=== PATIENT | female | born 1950 | race Caucasian/White ===

== ENCOUNTER 2017-04-24 18:30 | Emergency (ER) | payer OTHER ==
[~2017-04-24] VITALS: Ht 162.6 cm; Wt 70.7 kg
[~2017-04-24 18:30] MED LIST: ALBU1AER9 INH; CHOL100010 PO; DOCU-94 PO; DOXY100C76 PO; FLVHFA110 INH; NAPR220T40 PO
[2017-04-24 18:35] VITALS: TEMP 36.6; Ht 162.6 cm; Wt 70.7 kg
[2017-04-24] MEDS ORDERED: HYDROCODONE/HOMATROPINE SYRUP 5MG/1.5MG 5ML UDP PO STA (18:43)
[2017-04-24] MEDS ORDERED: ALBUT/IPRATROP 3MG/0.5MG NEB 3 ML VIAL INH ONE (18:45)
--- NOTE | 2017-04-24 18:48 | EMERGENCY ROOM VISIT NOTE ---
History Report prepared by Cindy: Gita Roberts Under the Supervision of: Dr. Akin Greene M.D. First contact with patient: 18:38 Chief Complaint: RESPIRATORY PROBLEMS Stated Complaint: TROUBLE BREATHING LEFT LUNG History of Present Illness The patient is a 66 year old female who presents to the Emergency Room with complaints of constant shortness of breath beginning 1 week ago. The patient states that she has a history of COPD and has been using her nebulizer without relief of her symptoms. She reports that she is not on oxygen at home. She notes that her pain is mostly on the left side and she explains that 1 week ago she was hit with a car door on the left side when she was putting her grandson in a car seat. The patient states that her shortness of breath is worse with exertion. She reports that she walks a few miles a day every day but was not able to walk today. She complains of a productive cough. Source of History: patient Onset: 1 week ago Position: other (respiratory) Quality: other (SOB) Timing: constant Modifying Factors (Worsening): exertion Associated Symptoms: + cough Note: Pt complains of left sided rib pain. Review of Systems See HPI for pertinent positives & negatives. A total of 10 systems reviewed and were otherwise negative. Past Medical & Surgical Medical Problems: (1) COPD (chronic obstructive pulmonary disease) (2) Depressive Disorder Nec (3) Dysthymic Disorder (4) Esophageal Reflux (5) Herpes Zoster Nos (6) Pneumonia, Organism Nos (7) posterior colporrhapy Family History FH: ischemic heart disease Kidney disease Social History Smoking Status: Current Every Day Smoker Alcohol Use: none Marital Status: Housing Status: lives with significant other Occupation Status: retired Current/Historical Medications Scheduled Azithromycin (Zithromax), 250 MG PO DAILY Cholecalciferol (Vitamin D 1000 Unit), 1,000 INTER.UNIT PO DAILY Docusate Sodium (Colace), 2 CAP PO DAILY Omeprazole (Prilosec), 20 MG PO DAILY Prednisone (Prednisone Tab), 0 PO DAILY Scheduled PRN Albuterol Hfa (Ventolin Hfa), 2 PUFFS INH Q6H PRN for SOB/Wheezing Fluticasone Propionate (Flovent Hfa), 2 PUFF INH DAILY PRN for SOB/Wheezing Hydrocodone W/ Homatropine (Hycodan 5/1.5MG 5 Ml), 5 ML PO HS PRN for Cough Naproxen Sodium (Aleve), 440 TAB PO for Pain Allergies Coded Allergies: Iodinated Contrast Media (Verified Allergy, Intermediate, HIVES, 12/04/14) Uncoded Allergies: ANESTHETIC AGENT (Allergy, Unknown, BLISTER ACROSS CHEST AND 2 FLUID SACS IN THROAT AND SEEN MD, 11/07/14) SURGERY WAS IN SURG [facility]ENTER 04/26 Physical Exam Vital Signs Date Time Temp Pulse Resp B/P (MAP) Pulse Ox O2 Delivery O2 Flow Rate FiO2 04/24/17 20:16 79 20 129/62 96 04/24/17 19:39 76 04/24/17 19:14 99 04/24/17 19:10 71 18 96 Room Air 04/24/17 18:35 36.6 74 20 149/81 95 Room Air Physical Exam GENERAL: Patient is a healthy-appearing well-nourished female HEAD: Normocephalic atraumatic EYES: Ocular movements intact pupils equal and react to light OROPHARYNX mucous membranes are moist no exudates present no erythema or edema present NECK: Supple no nuchal rigidity CHEST: Good equal expansion, tender to left chest wall area. LUNGS: Clear and equal to auscultation CARDIAC: Normal S1 and S2 ABDOMEN: Soft nontender no guarding BACK: No CVA tenderness EXTREMITIES: No pain upon palpation normal muscle strength in all groups no clubbing cyanosis or edema NEURO: Patient is following commands and answering questions appropriately. Alert and oriented x3 Cranial Nerves 2-12 grossly intact Medical Decision & Procedures ER Provider Diagnostic Interpretation: X-ray results as stated below per interpretation by me and the radiologist: CHEST ONE VIEW PORTABLE FINDINGS: The bones soft tissues and hemidiaphragms are normal. The cardiomediastinal silhouette is normal. The lungs are clear. The pulmonary vasculature is normal. IMPRESSION: Negative chest. The above report was generated using voice recognition software. It may contain grammatical, syntax or spelling errors. Electronically signed by: Shay Carter M.D. 04/24/2017 7:15 PM Dictated Date/Time: 04/24/2017 7:11 PM Laboratory Results 04/24/17 18:54 Red Blood Count 4.49, Mean Corpuscular Volume 93.8, Mean Corpuscular Hemoglobin 31.4, Mean Corpuscular Hemoglobin Concent 33.5, Mean Platelet Volume 9.0, Neutrophils (%) (Auto) 55.9, Lymphocytes (%) (Auto) 33.6, Monocytes (%) (Auto) 7.7, Eosinophils (%) (Auto) 2.1, Basophils (%) (Auto) 0.4, Neutrophils # (Auto) 5.33, Lymphocytes # (Auto) 3.21, Monocytes # (Auto) 0.74, Eosinophils # (Auto) 0.20, Basophils # (Auto) 0.04 04/24/17 18:54 Test 04/24/17 18:54 White Blood Count 9.55 K/uL (4.8-10.8) Red Blood Count 4.49 M/uL (4.2-5.4) Hemoglobin 14.1 g/dL (12.0-16.0) Hematocrit 42.1 % (37-47) Mean Corpuscular Volume 93.8 fL (80-100) Mean Corpuscular Hemoglobin 31.4 pg (25-34) Mean Corpuscular Hemoglobin Concent 33.5 g/dl (32-36) Platelet Count 269 K/uL (130-400) Mean Platelet Volume 9.0 fL (7.4-10.4) Neutrophils (%) (Auto) 55.9 % Lymphocytes (%) (Auto) 33.6 % Monocytes (%) (Auto) 7.7 % Eosinophils (%) (Auto) 2.1 % Basophils (%) (Auto) 0.4 % Neutrophils # (Auto) 5.33 K/uL (1.4-6.5) Lymphocytes # (Auto) 3.21 K/uL (1.2-3.4) Monocytes # (Auto) 0.74 K/uL (0.11-0.59) Eosinophils # (Auto) 0.20 K/uL (0-0.5) Basophils # (Auto) 0.04 K/uL (0-0.2) RDW Standard Deviation 43.3 fL (36.4-46.3) RDW Coefficient of Variation 12.6 % (11.5-14.5) Immature Granulocyte % (Auto) 0.3 % Immature Granulocyte # (Auto) 0.03 K/uL (0.00-0.02) Anion Gap 6.0 mmol/L (3-11) Est Creatinine Clear Calc Drug Dose 77.5 ml/min Estimated GFR () 104.7 Estimated GFR (Non- 90.3 BUN/Creatinine Ratio 19.4 (10-20) Calcium Level 9.1 mg/dl (8.5-10.1) Total Bilirubin 0.3 mg/dl (0.2-1) Aspartate Amino Transf (AST/SGOT) 13 U/L (15-37) Alanine Aminotransferase (ALT/SGPT) 18 U/L (12-78) Alkaline Phosphatase 56 U/L (45-117) Total Creatine Kinase 103 U/L (26-192) Creatine Kinase MB 1.4 ng/ml (0.5-3.6) Creatine Kinase MB Ratio 1.4 (0-3.0) Troponin I < 0.015 ng/ml (0-0.045) Total Protein 6.8 gm/dl (6.4-8.2) Albumin 3.7 gm/dl (3.4-5.0) Globulin 3.1 gm/dl (2.5-4.0) Albumin/Globulin Ratio 1.2 (0.9-2) Labs reviewed by ED physician. Medications Administered Medications (Trade) Dose Ordered Sig/Shelia Route Start Time Stop Time Status Last Admin Dose Admin Hydrocodone Bit/ Homatropine Methylb (Hycodan Syrup) 5 ml NOW STAT PO 04/24/17 18:43 04/24/17 18:45 DC 04/24/17 19:01 5 ML Albuterol/ Ipratropium (Duoneb) 12 ml ONE ONCE INH 04/24/17 18:45 04/24/17 18:46 DC 04/24/17 19:07 12 ML Methylprednisolone Sodium Succinate (Solu-Medrol IV) 60 mg NOW STAT IV 04/24/17 19:03 04/24/17 19:04 DC 04/24/17 19:22 60 MG Sodium Chloride 500 ml @ 999 mls/hr Q31M STAT IV 04/24/17 19:03 04/24/17 19:33 DC 04/24/17 19:23 999 MLS/HR Azithromycin (Zithromax Tab) 500 mg NOW STAT PO 04/24/17 19:48 04/24/17 19:49 DC 04/24/17 20:10 500 MG Hydrocodone Bit/ Homatropine Methylb (Hycodan Elix Homepack 5/1.5MG/ 5ML) 1 homepack UD STAT PO 04/24/17 19:49 04/24/17 19:50 DC 04/24/17 20:10 1 HOMEPACK ECG Indication: SOB/dyspnea Rate (beats per minute): 61 Rhythm: normal sinus Findings: no acute ischemic change, no ectopy ED Course 1837: Past medical records reviewed. The patient was evaluated in room C5. A complete history and physical examination was performed. 1842: Hycodan Syrup 5ml PO, Duoneb 12ml INH. 1902: Sodium Chloride 500 ml @ 999 mls/hr IV, Solu-Medrol IV 60mg IV. 1947: Zithromax Tab 500mg PO, Hydrocodone Bit/Homatropine Methylb 1 homepack PO. 1952: Upon reexamination the patient is doing well. I discussed results and treatment plan with the patient. She verbalizes agreement and understanding. The patient is ready for discharge. Medical Decision Differential diagnosis: Etiologies such as infections, reactive airway disease, pneumonia, pneumothorax , COPD, CHF, cardiac ischemia, pulmonary embolism, musculoskeletal, gastrointestinal, as well as others were entertained. This is a 66-year-old female who presents emergency department complaining of left-sided rib pain that has been ongoing for the past 4 weeks ever since she hit herself with a car door. The rib pain is palpable on examination. She does also has a normal EKG as well as CK-MB and troponin. She is not hypoxic and is not tachycardic. Based on these findings the patient was given an hour- long breathing treatment and will be started on Solu-Medrol for her COPD. She' ll be placed on a prednisone taper and I recommended Tylenol as well as Hycodan for pain. Patient will return if her symptoms worsen. She will also follow-up with her primary care physician. Medication Reconcilliation Current Medication List: was personally reviewed by me Blood Pressure Screening Patient's blood pressure: Elevated blood pressure Blood pressure disposition: Elevated BP felt to be situational Impression Primary Impression: COPD exacerbation Scribe Attestation The scribe's documentation has been prepared under my direction and personally reviewed by me in its entirety. I confirm that the note above accurately reflects all work, treatment, procedures, and medical decision making performed by me. Departure Information Dispostion Home / Self-Care Prescriptions Hydrocodone W/ Homatropine (HYCODAN 5/1.5MG 5 ML) 1 Syp Syp 5 ML PO HS Y for Cough, #120 ML Prov: Akin Greene MD 04/24/17 Azithromycin (ZITHROMAX) 250 Mg Tab 250 MG PO DAILY, #4 TAB Prov: Akin Greene MD 04/24/17 Prednisone (Prednisone Tab) 20 Mg Tab 0 PO DAILY, #7 TAB 2 TABS DAILY FOR 2 DAYS, THEN 1 TAB DAILY FOR 2 DAYS, THEN 1/2 TAB DAILY FOR 2 DAYS. Prov: Akin Greene MD 04/24/17 Referrals Molly King C.R.N.P (PCP) Forms HOME CARE DOCUMENTATION FORM, IMPORTANT VISIT INFORMATION, WORK / SCHOOL INSTRUCTIONS Patient Instructions COPD - [facility], [facility] Additional Instructions Use inhaler twice every 6 hours Use 1000 mg Tylenol every 6 hours Take Hycodan for breakthrough pain You were found to have an elevated blood pressure today (>120 sytolic or >90 diastolic). Per medicare guidelines, you need to follow up with this blood pressure screening with your Primary Care Physician (PCP). For a new PCP call [phone]. You received narcotic or benzodiazepene medication while in the emergency room today. This is an addictive medication that may cause drowziness as well as constipation. Do not drive, operate heavy machinery, or drink alcohol under the influence of this medication. You have been examined and treated today on an emergency basis only. This is not a substitute for, or an effort to provide, complete comprehensive medical care. It is impossible to recognize and treat all injuries or illnesses in a single emergency department visit. It is therefore important that you follow up closely with Dr King. Call as soon as possible for an appointment. Thank you for your time and consideration. I look forward to speaking with you again soon. Please don't hesitate to call us if you have any questions.
[2017-04-24] MEDS ORDERED: METHYLPREDNISOLONE 125 MG VIAL IV STA (19:03)
[2017-04-24] MEDS ORDERED: SODIUM CHLORIDE 0.9% 500ML 500 ML IV STA (19:03)
[2017-04-24 19:06] LABS: BASO % 0.4 %; BASO ABS # 0.04 K/uL (0-0.2); COMPLETE YES; EOS % 2.1 %; HEMATOCRIT 42.1 % (37-47); IG% 0.3 %; LYMPH % 33.6 %; LYMPH ABS # 3.21 K/uL (1.2-3.4); MEAN CELL VOLUME 93.8 fL (80-100); MEAN CORPUSCULAR HEMOGLOBIN 31.4 pg (25-34); MEAN CORPUSCULAR HGB CONC 33.5 g/dl (32-36); MONO % 7.7 %; NEUT % 55.9 %; PLATELET COUNT 269 K/uL (130-400); RED BLOOD COUNT 4.49 M/uL (4.2-5.4); WHITE BLOOD COUNT 9.55 K/uL (4.8-10.8)
[2017-04-24 19:10] VITALS: PULSE 71; O2SAT 96
[2017-04-24 19:14] VITALS: O2SAT 99
--- NOTE | 2017-04-24 19:16 | DIAGNOSTIC IMAGING REPORT ---
CHEST ONE VIEW PORTABLE CLINICAL HISTORY: Pt c/o cough dyspnea COMPARISON STUDY: 08/04/2016 FINDINGS: The bones soft tissues and hemidiaphragms are normal. The cardiomediastinal silhouette is normal. The lungs are clear. The pulmonary vasculature is normal. IMPRESSION: Negative chest. The above report was generated using voice recognition software. It may contain grammatical, syntax or spelling errors. Electronically signed by: Shay Carter M.D. 04/24/2017 7:15 PM Dictated Date/Time: 04/24/2017 7:11 PM
[2017-04-24 19:25] LABS: ALT/SGPT 18 U/L (12-78); BLOOD UREA NITROGEN 13 mg/dl (7-18); BUN/CREATININE RATIO 19.4 (10-20); CALCIUM 9.1 mg/dl (8.5-10.1); CARBON DIOXIDE 27 mmol/L (21-32); CHLORIDE 107 mmol/L (98-107); CREATININE 0.67 mg/dl (0.60-1.20); GLUCOSE 87 mg/dl (70-99); SODIUM 140 mmol/L (136-145)
[2017-04-24 19:31] LABS: ALB/GLOB RATIO 1.2 (0.9-2); ALKALINE PHOSPHATASE 56 U/L (45-117); AST/SGOT 13 U/L (15-37); CKMB/CK RATIO 1.4 (0-3.0)
[2017-04-24] MEDS ORDERED: OMEP20CA9 PO (19:32)
[2017-04-24] MEDS ORDERED: VNTHFA/IN INH (19:37)
[2017-04-24] MEDS ORDERED: CHOL100027 PO (19:37)
[2017-04-24] MEDS ORDERED: AZITHROMYCIN 250 MG TAB PO STA (19:48)
[2017-04-24] MEDS ORDERED: PRED20TA2 PO (19:49)
[2017-04-24] MEDS ORDERED: HYDR5SYP11 PO (19:49)
[2017-04-24] MEDS ORDERED: AZIT250T5 PO (19:49)
[2017-04-24] MEDS ORDERED: HYCODAN 60ML BOTTLE HOMEPACK PO STA (19:49)
[2017-04-24 20:16] VITALS: BP 129/62; PULSE 79; O2SAT 96
== END 2017-04-24 20:17 | disposition home or self-care (01) ==
LOC: C.EDB 18:31 → C.EDC 20:17
DX: J44.1 Chronic obstructive pulmonary disease with (acute) exacerbation (principal); F34.1 Dysthymic disorder; K21.9 Gastro-esophageal reflux disease without esophagitis; R07.81 Pleurodynia; W22.8XXD Striking against or struck by other objects, subsequent encounter; Z87.01 Personal history of pneumonia (recurrent); Z84.1 Family history of disorders of kidney and ureter; Z79.899 Other long term (current) drug therapy

== ENCOUNTER → 2017-05-31 | Day surgery (SDC) | payer OTHER ==
[2017-05-23 08:40] VITALS: Ht 162.6 cm; Wt 70.5 kg
[~2017-05-31] VITALS: Ht 162.6 cm; Wt 70.5 kg
[~2017-05-31] MED LIST changes: +500ML BSS 0.3ML EPI 1:1000PF IRRIG ONE; +ACETAMINOPHEN 325 MG TAB PO PRN; -ALBU1AER9 INH; +AMVISC PLUS 0.8ML SYRINGE INT OCU ONE; +ATROPINE SULFATE 0.1 MG/ML 5ML SYR IV PRN; +AcetaZOLAMIDE 250 MG TAB PO SCH; +BETAXOLOL HCL 0.25% OP SUSP PER DROP CHARGE OPR SCH; +BRIMONIDINE TART 0.2% OP SOLN PER DROP CHARGE ONE; +BSS FLUSH ONE; -CHOL100010 PO; +CHOL100027 PO; -DOXY100C76 PO; +ENDOCOAT 0.85ML SYRINGE INT OCU ONE; +EpHEDrine SULFATE INJ 50 MG/ML AMP IV PRN; +EpINEphrine INJ 1MG/ML AMP 1 MG/ML AMP ONE; +LACTATED RINGER'S 1000ML 500 ML IV SCH; +LIDOCAINE 4% OP SOLN DROP CHARGE ONE; +LIDOCAINE 4% OP SOLN DROP CHARGE OPR SCH; +LIDOCAINE HCL 1% MPF 2 ML VIAL ONE; +MIDAZOLAM HCL 1 MG/ML 2ML VIAL ONE; +MIX: 4ML BSS 1ML EPI 1:1000 PF INSTIL ONE; +MOXIFLOXACIN OPH SOLN PER DROP CHARGE ONE; +OCUCOAT 1 ML SOLN IO ONE; +OMEP20CA9 PO; +POVIDONE-IODINE OP SOLN 30 ML BTL ONE; +PROPARACAINE 0.5% OP SOLN PER DROP CHARGE OPR SCH; +TOBRAMYCIN/DEXAMETHASONE OPH OINT PER APPLN CHARGE ONE; +VNTHFA/IN INH
--- NOTE | 2017-05-31 06:56 | History & Physical Bridge - [place] ---
H&P Re-Evaluation Bridge Note: I have examined the patient, reviewed the History & Physical and in the interval since the performance of the History & Physical I have noted the following changes of clinical significance: No changes noted
[2017-05-31] MEDS: PHENYLEPHRINE HCL 2.5% OP SOLN PER DROP CHARGE OPR SCH ×2 (07:11→07:16)
[2017-05-31] MEDS: TROPICAMIDE 1% OP SOLN PER DROP CHARGE OPR SCH ×2 (07:13→07:17)
[2017-05-31] MEDS: CYCLOPENTOLATE HCL 1% OP SOLN PER DROP CHARGE OPR SCH ×2 (07:14→07:18)
[2017-05-31] MEDS: MOXIFLOXACIN OPH SOLN PER DROP CHARGE OPR SCH ×2 (07:15→07:35)
--- NOTE | 2017-05-31 07:52 | Discharge Instructions-SurgCtr ---
Discharge Instructions Date of Service May 31, 2017. Visit Reason for Visit: Right Cataract Discharge Discharge Diagnosis / Problem: lens implant right eye Discharge Goals Goal(s): Improve function Activity Recommendations Activity Limitations: resume your previous activity Lifting Limitations: no more than 10 pounds Exercise/Sports Limitations: gradually increase as tolerated May Resume Sexual Activity: when tolerated Shower/Bathe: tomorrow Driving or Machine Use: resume 1 day after discharge Anesthesia . Post Anesthesia Instructions: If you have had General Anesthesia or IV Sedation: * Do not drive today. * Resume driving when surgeon permits. * Do not make important decisions or sign legal documents today. * Call surgeon for: 1. Temperature elevations greater than 101 degrees F. 2. Uncontrollable pain. 3. Excessive bleeding. 4. Persistent nausea and vomiting. 5. Medication intolerance (nausea, vomiting or rash). * For nausea and vomiting use only clear liquids such as: tea, soda, bouillon until nausea subsides, then gradually increase diet as tolerated. * If you have any concerns or questions, call your surgeon's office. If physician is unavailable and it is an emergency, call 911 or go to the nearest emergency room. . Instructions / Follow-Up Instructions / Follow-Up ACTIVITY RECOMMENDATIONS: * Light activities. * Mild irritation and blurred vision are common for the first few days. * You may walk outside, read, watch television. * Redness around the white part of the eye is common. MEDICATIONS: Resume previous medications unless instructed otherwise by your surgeon. * Take white Diamox (Acetazolamide) tablet at 1 pm today. Start all eye drops at 1 pm today: * Eye drops (today and tomorrow): Prednisone - one drop in operative eye every 3 hours while awake Ofloxacin - one drop in operative eye every 3 hours while awake SPECIAL CARE INSTRUCTIONS: * Tape plastic shield over eye to sleep at night. Call your doctor at with any concerns or problems. FOLLOW UP VISIT: Follow-up with Dr Wynne at [place] office as scheduled. Diet Recommendations Home Diet: no limitations Procedures Procedures Performed: cataract extraction with lens implant Pending Studies Studies pending at discharge: no Medical Emergencies . Who to Call and When: Medical Emergencies: If at any time you feel your situation is an emergency, please call 911 immediately. . Non-Emergent Contact Non-Emergency issues call your: Irrigation Engineer Call Non-Emergent contact if: your pain is not controlled [phone] . . "Provider Documentation" section prepared by Josh Wynne. .
--- NOTE | 2017-05-31 07:55 | [facility] Operative Report ---
Operative Report Date of Service May 31, 2017. Operative Report 1. PREOPERATIVE DIAGNOSIS: Senile nuclear cataract, right eye. 2. POSTOPERATIVE DIAGNOSIS: Senile nuclear cataract, right eye. 3. PROCEDURE: Phacoemulsification of right cataract with posterior chamber lens implant, type Bausch [employer] Lomb, model MI60L, power +24.5 diopters. ANESTHESIA: Local standby. SURGEON: Dr. Wynne. COMPLICATIONS: None. OPERATING TIME: 10 minutes. 4. OPERATION AND FINDINGS: DESCRIPTION OF PROCEDURE: The right pupil was dilated. The anesthetic was administered using a topical technique. The right eye was prepped and draped. A speculum was placed. A clear corneal incision was formed. The chamber was filled with Amvisc Plus and Endocoat. Epinephrine solution was used. A paracentesis was placed. A capsulorrhexis was performed. The nucleus was hydrodissected. The lens was removed with phacoemulsification. Time was 4.09 seconds. The aspiration unit was used to remove the cortex. The capsule was filled with Amvisc Plus. The lens implant was folded and placed into the capsule. The incision was hydrated. The Amvisc was aspirated. The wound was secure. The chamber was deep. The pupil was round. Brimonidine, TobraDex ointment and Vigamox solution were placed. The speculum was removed. The patient was returned to the Recovery Room in stable condition. I attest to the content of the Intraoperative Record and any orders documented therein. Any exceptions are noted below. The scribe's documentation has been prepared in my presence, under my direction and personally reviewed by me in its entirety. I confirm that the note above accurately reflects all work, treatment, procedures, and medical decision making performed by me. I personally scribed for Josh Wynne M.D. ([email or web address]) on 05/31/17 at 07:55. Electronically submitted by Annalisa Healy ([email or web address]).
--- NOTE | 2017-05-31 07:59 | Anesthesia Progress Nt - [facility] ---
Anesthesia Post Op Note Date & Time May 31, 2017 at 07:59 Vital Signs Pain Intensity: 0 Vital Signs Past 12 Hours Date Time Temp Pulse Resp B/P (MAP) Pulse Ox O2 Delivery O2 Flow Rate FiO2 05/31/17 06:59 36.5 70 18 120/75 (90) 96 Room Air Notes Mental Status: alert / awake / arousable, participated in evaluation Pt Amnestic to Procedure: Yes Nausea / Vomiting: adequately controlled Pain: adequately controlled Airway Patency, RR, SpO2: stable & adequate BP & HR: stable & adequate Hydration State: stable & adequate Anesthetic Complications: no major complications apparent
[2017-05-31 08:22] VITALS: BP 125/73; PULSE 65; TEMP 36.6; O2SAT 98
== END | disposition home or self-care (01) ==
LOC: X.SURG 06:31
PROVIDERS: ATTEND Specialist
DX: H25.11 Age-related nuclear cataract, right eye (principal); J44.9 Chronic obstructive pulmonary disease, unspecified; K21.9 Gastro-esophageal reflux disease without esophagitis; Z68.27 Body mass index [BMI] 27.0-27.9, adult; Z90.710 Acquired absence of both cervix and uterus; Z98.890 Other specified postprocedural states

== ENCOUNTER → 2017-06-07 | Day surgery (SDC) | payer OTHER ==
[2017-06-05 13:26] VITALS: Ht 162.6 cm; Wt 70.5 kg
[~2017-06-07] VITALS: Ht 162.6 cm; Wt 70.5 kg
[~2017-06-07] MED LIST changes: +BETAXOLOL HCL 0.25% OP SUSP PER DROP CHARGE OPL SCH; -BETAXOLOL HCL 0.25% OP SUSP PER DROP CHARGE OPR SCH; +LIDOCAINE 4% OP SOLN DROP CHARGE OPL SCH; -LIDOCAINE 4% OP SOLN DROP CHARGE OPR SCH; +PROPARACAINE 0.5% OP SOLN PER DROP CHARGE OPL SCH; -PROPARACAINE 0.5% OP SOLN PER DROP CHARGE OPR SCH
[2017-06-07] MEDS: PHENYLEPHRINE HCL 2.5% OP SOLN PER DROP CHARGE OPL SCH ×2 (13:05→13:10)
[2017-06-07] MEDS: TROPICAMIDE 1% OP SOLN PER DROP CHARGE OPL SCH ×2 (13:06→13:11)
[2017-06-07] MEDS: CYCLOPENTOLATE HCL 1% OP SOLN PER DROP CHARGE OPL SCH ×2 (13:07→13:12)
[2017-06-07] MEDS: MOXIFLOXACIN OPH SOLN PER DROP CHARGE OPL SCH ×2 (13:08→13:19)
--- NOTE | 2017-06-07 13:59 | Discharge Instructions-SurgCtr ---
Discharge Instructions Date of Service Jun 07, 2017. Visit Reason for Visit: Left Cataract Discharge Discharge Diagnosis / Problem: lens implant left eye Discharge Goals Goal(s): Improve function Activity Recommendations Activity Limitations: resume your previous activity Lifting Limitations: no more than 10 pounds Exercise/Sports Limitations: gradually increase as tolerated May Resume Sexual Activity: when tolerated Shower/Bathe: tomorrow Driving or Machine Use: resume 1 day after discharge Anesthesia . Post Anesthesia Instructions: If you have had General Anesthesia or IV Sedation: * Do not drive today. * Resume driving when surgeon permits. * Do not make important decisions or sign legal documents today. * Call surgeon for: 1. Temperature elevations greater than 101 degrees F. 2. Uncontrollable pain. 3. Excessive bleeding. 4. Persistent nausea and vomiting. 5. Medication intolerance (nausea, vomiting or rash). * For nausea and vomiting use only clear liquids such as: tea, soda, bouillon until nausea subsides, then gradually increase diet as tolerated. * If you have any concerns or questions, call your surgeon's office. If physician is unavailable and it is an emergency, call 911 or go to the nearest emergency room. . Instructions / Follow-Up Instructions / Follow-Up ACTIVITY RECOMMENDATIONS: * Light activities. * Mild irritation and blurred vision are common for the first few days. * You may walk outside, read, watch television. * Redness around the white part of the eye is common. MEDICATIONS: Resume previous medications unless instructed otherwise by your surgeon. * Take white Diamox (Acetazolamide) tablet at 4 pm today. Start all eye drops at 4 pm today: * Eye drops (today and tomorrow): Prednisone - one drop in operative eye every 3 hours while awake Ofloxacin - one drop in operative eye every 3 hours while awake SPECIAL CARE INSTRUCTIONS: * Tape plastic shield over eye to sleep at night. Call your doctor at with any concerns or problems. FOLLOW UP VISIT: Follow-up with Dr Wynne at [place] office as scheduled. Diet Recommendations Home Diet: no limitations Procedures Procedures Performed: cataract extraction with lens implant Pending Studies Studies pending at discharge: no Medical Emergencies . Who to Call and When: Medical Emergencies: If at any time you feel your situation is an emergency, please call 911 immediately. . Non-Emergent Contact Non-Emergency issues call your: Senior Market Research Analyst Call Non-Emergent contact if: your pain is not controlled [phone] . . "Provider Documentation" section prepared by Josh Wynne. .
--- NOTE | 2017-06-07 14:00 | [facility] Operative Report ---
Operative Report Date of Service Jun 07, 2017. Operative Report 1. PREOPERATIVE DIAGNOSIS: Senile nuclear cataract, left eye. 2. POSTOPERATIVE DIAGNOSIS: Senile nuclear cataract, left eye. 3. PROCEDURE: Phacoemulsification of left cataract with posterior chamber lens implant, type Bausch [employer] Lomb, model MI60L, power +24.5 diopters. ANESTHESIA: Local standby. SURGEON: Dr. Wynne. COMPLICATIONS: None. OPERATING TIME: 10 minutes. 4. OPERATION AND FINDINGS: DESCRIPTION OF PROCEDURE: The left pupil was dilated. The anesthetic was administered using a topical technique. The left eye was prepped and draped. A speculum was placed. A clear corneal incision was formed. The chamber was filled with Amvisc Plus and Endocoat. Epinephrine solution was used. A paracentesis was placed. A capsulorrhexis was performed. The nucleus was hydrodissected. The lens was removed with phacoemulsification. Time was 3.17 seconds. The aspiration unit was used to remove the cortex. The capsule was filled with Amvisc Plus. The lens implant was folded and placed into the capsule. The incision was hydrated. The Amvisc was aspirated. The wound was secure. The chamber was deep. The pupil was round. Brimonidine, TobraDex ointment and Vigamox solution were placed. The speculum was removed. The patient was returned to the Recovery Room in stable condition. I attest to the content of the Intraoperative Record and any orders documented therein. Any exceptions are noted below. The scribe's documentation has been prepared in my presence, under my direction and personally reviewed by me in its entirety. I confirm that the note above accurately reflects all work, treatment, procedures, and medical decision making performed by me. I personally scribed for Josh Wynne M.D. ([email or web address]) on 06/07/17 at 14:00. Electronically submitted by Annalisa Healy ([email or web address]).
[2017-06-07 14:02] VITALS: TEMP 36.4
--- NOTE | 2017-06-07 14:20 | Anesthesiology Progress Note ---
Anesthesia Post Op Note Date & Time Jun 07, 2017 at 14:20 Vital Signs Pain Intensity: 0 Vital Signs Past 12 Hours Date Time Temp Pulse Resp B/P (MAP) Pulse Ox O2 Delivery O2 Flow Rate FiO2 06/07/17 14:02 36.4 63 18 116/72 (87) 96 Room Air 06/07/17 12:59 36.6 64 18 119/64 (82) 97 Room Air Notes Mental Status: alert / awake / arousable, participated in evaluation Nausea / Vomiting: adequately controlled Pain: adequately controlled Airway Patency, RR, SpO2: stable & adequate BP & HR: stable & adequate Hydration State: stable & adequate Anesthetic Complications: no major complications apparent
[2017-06-07 14:21] VITALS: BP 127/77; PULSE 67; O2SAT 97
== END | disposition home or self-care (01) ==
LOC: X.SURG 11:06
PROVIDERS: ATTEND Specialist
DX: H25.12 Age-related nuclear cataract, left eye (principal); J44.9 Chronic obstructive pulmonary disease, unspecified; M19.90 Unspecified osteoarthritis, unspecified site; F17.200 Nicotine dependence, unspecified, uncomplicated

== ENCOUNTER 2017-09-18 16:36 | Emergency (ER) | payer OTHER ==
[~2017-09-18] VITALS: Ht 162.6 cm; Wt 71.5 kg
[~2017-09-18 16:36] MED LIST changes: -500ML BSS 0.3ML EPI 1:1000PF IRRIG ONE; -ACETAMINOPHEN 325 MG TAB PO PRN; -AMVISC PLUS 0.8ML SYRINGE INT OCU ONE; -ATROPINE SULFATE 0.1 MG/ML 5ML SYR IV PRN; -AcetaZOLAMIDE 250 MG TAB PO SCH; -BETAXOLOL HCL 0.25% OP SUSP PER DROP CHARGE OPL SCH; -BRIMONIDINE TART 0.2% OP SOLN PER DROP CHARGE ONE; -BSS FLUSH ONE; -ENDOCOAT 0.85ML SYRINGE INT OCU ONE; -EpHEDrine SULFATE INJ 50 MG/ML AMP IV PRN; -EpINEphrine INJ 1MG/ML AMP 1 MG/ML AMP ONE; -LACTATED RINGER'S 1000ML 500 ML IV SCH; -LIDOCAINE 4% OP SOLN DROP CHARGE ONE; -LIDOCAINE 4% OP SOLN DROP CHARGE OPL SCH; -LIDOCAINE HCL 1% MPF 2 ML VIAL ONE; -MIDAZOLAM HCL 1 MG/ML 2ML VIAL ONE; -MIX: 4ML BSS 1ML EPI 1:1000 PF INSTIL ONE; -MOXIFLOXACIN OPH SOLN PER DROP CHARGE ONE; -OCUCOAT 1 ML SOLN IO ONE; -POVIDONE-IODINE OP SOLN 30 ML BTL ONE; -PROPARACAINE 0.5% OP SOLN PER DROP CHARGE OPL SCH; -TOBRAMYCIN/DEXAMETHASONE OPH OINT PER APPLN CHARGE ONE
[2017-09-18 16:47] VITALS: TEMP 36.5
--- NOTE | 2017-09-18 18:11 | DIAGNOSTIC IMAGING REPORT ---
CHEST ONE VIEW PORTABLE CLINICAL HISTORY: Respiratory distress. Shortness of breath. COMPARISON STUDY: 04/24/2017 FINDINGS: The cardiac and mediastinal contours are normal. There is no evidence of focal pulmonary consolidation. There is no evidence of failure. No pleural effusions are visualized.[ There is stable aortic tortuosity. IMPRESSION: No active disease in the chest. Electronically signed by: Willian Perea M.D. 09/18/2017 6:10 PM Dictated Date/Time: 09/18/2017 6:06 PM
[2017-09-18 18:14] VITALS: O2SAT 95; Ht 162.6 cm; Wt 71.5 kg
[2017-09-18 18:27] LABS: BASO % 0.5 %; BASO ABS # 0.05 K/uL (0-0.2); EOS % 1.6 %; EOS ABS # 0.15 K/uL (0-0.5); HEMATOCRIT 43.2 % (37-47); HEMOGLOBIN 14.2 g/dL (12.0-16.0); IG# 0.02 K/uL (0.00-0.02); LYMPH ABS # 3.84 K/uL (1.2-3.4); MEAN CELL VOLUME 94.9 fL (80-100); MEAN CORPUSCULAR HEMOGLOBIN 31.2 pg (25-34); MEAN CORPUSCULAR HGB CONC 32.9 g/dl (32-36); MONO % 4.8 %; MONO ABS # 0.46 K/uL (0.11-0.59); NEUT % 52.9 %; NEUT ABS # 5.07 K/uL (1.4-6.5); PLATELET COUNT 228 K/uL (130-400); RED CELL DISTRIBUTION WIDTH CV 12.5 % (11.5-14.5); RED CELL DISTRIBUTION WIDTH SD 43.2 fL (36.4-46.3); WHITE BLOOD COUNT 9.59 K/uL (4.8-10.8)
[2017-09-18 18:38] LABS: PTT PATIENT 27.8 SECONDS (21.0-31.0)
[2017-09-18 18:39] LABS: ALBUMIN 3.6 gm/dl (3.4-5.0); ALT/SGPT 15 U/L (12-78); BLOOD UREA NITROGEN 18 mg/dl (7-18); CALCIUM 8.4 mg/dl (8.5-10.1); CARBON DIOXIDE 25 mmol/L (21-32); CREATININE 0.76 mg/dl (0.60-1.20); GLUCOSE 82 mg/dl (70-99); LIPASE 101 U/L (73-393); POTASSIUM 3.9 mmol/L (3.5-5.1); SODIUM 141 mmol/L (136-145)
[2017-09-18 18:44] LABS: ALKALINE PHOSPHATASE 51 U/L (45-117); AST/SGOT 10 U/L (15-37); TOTAL PROTEIN 6.8 gm/dl (6.4-8.2)
--- NOTE | 2017-09-18 18:55 | DIAGNOSTIC IMAGING REPORT ---
CT SCAN OF THE ABDOMEN AND PELVIS WITHOUT CONTRAST CLINICAL HISTORY: Diffuse abdominal pain COMPARISON STUDY: 06/23/2012 TECHNIQUE: CT scan of the abdomen and pelvis was performed from the lung bases to the proximal femurs. Images are reviewed in the axial, sagittal, and coronal planes. IV contrast was not administered for this examination. A dose lowering technique was utilized adhering to the principles of ALARA. CT DOSE: 363.52 mGy.cm FINDINGS: Lower chest: There are dependent atelectatic changes Liver: The unenhanced liver is normal in size, contour, and attenuation. There is no intrahepatic biliary ductal dilatation. Gallbladder: Unremarkable. Spleen: Normal in size and attenuation. Pancreas: Unremarkable. Adrenal glands: There are persistent bilateral adrenal adenoma/hyperplasia Kidneys: There are stable left renal capsular calcifications. No renal, ureteral, or bladder calculi are visualized. There is no hydronephrosis. Bowel: There are no transition zones indicate bowel obstruction. The appendix appears normal. There is no acute diverticulitis. Peritoneum: There is no intraperitoneal free air or abdominal ascites. Vasculature: There is scattered atheromatous changes. There is no evidence of abdominal aortic aneurysm. Adenopathy: None. Pelvic viscera: The uterus is surgically absent Skeletal structures: No destructive osseous lesions are seen. IMPRESSION: 1. No acute intra-abdominal or pelvic findings 2. No evidence of bowel obstruction. No evidence of free air 3. Stable left renal capsular calcification. No ureteral or bladder calculi identified 4. Normal appendix. No evidence of acute diverticulitis. Electronically signed by: Willian Perea M.D. 09/18/2017 6:53 PM Dictated Date/Time: 09/18/2017 6:49 PM
[2017-09-18 20:39] VITALS: BP 158/81; PULSE 69; O2SAT 96
[2017-09-18] MEDS ORDERED: LEVOFLOXACIN 250 MG TAB PO ONE (20:45)
[2017-09-18] MEDS ORDERED: LEVO-366 PO (20:47)
--- NOTE | 2017-09-18 22:38 | EMERGENCY ROOM VISIT NOTE ---
History Report prepared by Cindy: Jose R Hare Under the Supervision of: Dr. Bryant Ventura D.O. First contact with patient: 17:41 Chief Complaint: RESPIRATORY PROBLEMS Stated Complaint: DIFFICULTY BREATHING, WEAKNESS, COPD, CONGESTION Nursing Triage Summary: triage note; pt reports hx of copd. pt reports for the past three weeks she has been weak and saw her pcp. pt reports nausea and vomitting since yesterday. pt reports shortness of breath - reports cough with yellow sputum. History of Present Illness The patient is a 67 year old female who presents to the Emergency Room with complaints of persistent shortness of breath for the past 2 weeks. The patient additionally states that she has been coughing up clear/yellow phlegm. She also has some fever, chills, weakness, and lower abdominal pain which started two days ago. The patient reports that two days ago she started vomiting and having diarrhea as well as the abdominal pain, and she states that she has a headache and is sometimes off balance. She additionally states that her nose has been stuffy. She states that she went to her PCP, and she was prescribed a Z-pack which she finished about a week ago. The patient has a history of COPD. Pt denies change in vision, chest pain, pain with urination, and melena. Source of History: patient Onset: two weeks ago Position: other (global) Quality: other (shortness of breath) Timing: other (persistent) Associated Symptoms: + fevers, + chills, + cough, + vomiting, + abdominal pain, + diarrhea, + weakness Review of Systems See HPI for pertinent positives & negatives. A total of 10 systems reviewed and were otherwise negative. Past Medical & Surgical Medical Problems: (1) COPD (chronic obstructive pulmonary disease) (2) Depressive Disorder Nec (3) Dysthymic Disorder (4) Esophageal Reflux (5) Herpes Zoster Nos (6) Pneumonia, Organism Nos (7) posterior colporrhapy Family History FH: ischemic heart disease Kidney disease Social History Smoking Status: Current Every Day Smoker Alcohol Use: none Marital Status: Housing Status: lives with significant other Occupation Status: retired Current/Historical Medications Scheduled Cholecalciferol (Vitamin D 1000 Unit), 1,000 INTER.UNIT PO QAM Levofloxacin (Levaquin), 500 MG PO DAILY Omeprazole (Prilosec), 20 MG PO QAM Scheduled PRN Albuterol Hfa (Ventolin Hfa), 2 PUFFS INH Q6H PRN for SOB/Wheezing Docusate Sodium (Colace), 1 CAP PO DAILY PRN for Constipation Fluticasone Propionate (Flovent Hfa), 2 PUFF INH DAILY PRN for SOB/Wheezing Naproxen Sodium (Aleve), 440 TAB PO for Pain Allergies Coded Allergies: Iodinated Diagnostic Agents (Verified Allergy, Intermediate, HIVES, ) Physical Exam Vital Signs Date Time Temp Pulse Resp B/P (MAP) Pulse Ox O2 Delivery O2 Flow Rate FiO2 09/18/17 20:39 69 20 158/81 96 Room Air 09/18/17 18:26 68 09/18/17 18:17 65 14 106/67 97 Room Air 09/18/17 18:14 95 Room Air 09/18/17 16:47 36.5 77 20 151/81 95 Room Air Physical Exam GENERAL: Sitting up in bed, chronically ill appearing, no acute distress, talking in full sentences, dry cough. EYE EXAM: normal conjunctiva. OROPHARYNX: no exudate, no erythema, lips, buccal mucosa, and tongue normal and mucous membranes are moist NECK: supple, no nuchal rigidity, no adenopathy, non-tender LUNGS: Clear to auscultation. Normal chest wall mechanics HEART: no murmurs, S1 normal and S2 normal ABDOMEN: abdomen soft, non-tender, normo-active bowel sounds, no masses, no rebound or guarding. BACK: Back is symmetrical on inspection and there is no deformity, no midline tenderness, no CVA tenderness. SKIN: no rashes and no bruising UPPER EXTREMITIES: upper extremities are grossly normal. LOWER EXTREMITIES: Calves are equal bilaterally. No pitting edema. NEURO EXAM: Normal sensorium, cranial nerves II-XII grossly intact, normal speech, no gross weakness of arms, no gross weakness of legs. Medical Decision & Procedures ER Provider Diagnostic Interpretation: Radiology results as stated below per my review and the radiologist's interpretation: CHEST ONE VIEW PORTABLE CLINICAL HISTORY: Respiratory distress. Shortness of breath. COMPARISON STUDY: 04/24/2017 FINDINGS: The cardiac and mediastinal contours are normal. There is no evidence of focal pulmonary consolidation. There is no evidence of failure. No pleural effusions are visualized.[ There is stable aortic tortuosity. IMPRESSION: No active disease in the chest. Electronically signed by: Willian Perea M.D. 09/18/2017 6:10 PM Dictated Date/Time: 09/18/2017 6:[address] SCAN OF THE ABDOMEN AND PELVIS WITHOUT CONTRAST CLINICAL HISTORY: Diffuse abdominal pain COMPARISON STUDY: 06/23/2012 TECHNIQUE: CT scan of the abdomen and pelvis was performed from the lung bases to the proximal femurs. Images are reviewed in the axial, sagittal, and coronal planes. IV contrast was not administered for this examination. A dose lowering technique was utilized adhering to the principles of ALARA. CT DOSE: 363.52 mGy.cm FINDINGS: Lower chest: There are dependent atelectatic changes Liver: The unenhanced liver is normal in size, contour, and attenuation. There is no intrahepatic biliary ductal dilatation. Gallbladder: Unremarkable. Spleen: Normal in size and attenuation. Pancreas: Unremarkable. Adrenal glands: There are persistent bilateral adrenal adenoma/hyperplasia Kidneys: There are stable left renal capsular calcifications. No renal, ureteral, or bladder calculi are visualized. There is no hydronephrosis. Bowel: There are no transition zones indicate bowel obstruction. The appendix appears normal. There is no acute diverticulitis. Peritoneum: There is no intraperitoneal free air or abdominal ascites. Vasculature: There is scattered atheromatous changes. There is no evidence of abdominal aortic aneurysm. Adenopathy: None. Pelvic viscera: The uterus is surgically absent Skeletal structures: No destructive osseous lesions are seen. IMPRESSION: 1. No acute intra-abdominal or pelvic findings 2. No evidence of bowel obstruction. No evidence of free air 3. Stable left renal capsular calcification. No ureteral or bladder calculi identified 4. Normal appendix. No evidence of acute diverticulitis. Electronically signed by: Willian Perea M.D. 09/18/2017 6:53 PM Dictated Date/Time: 09/18/2017 6:49 PM Laboratory Results 09/18/17 18:15 Red Blood Count 4.55, Mean Corpuscular Volume 94.9, Mean Corpuscular Hemoglobin 31.2, Mean Corpuscular Hemoglobin Concent 32.9, Mean Platelet Volume 9.0, Neutrophils (%) (Auto) 52.9, Lymphocytes (%) (Auto) 40.0, Monocytes (%) (Auto) 4.8, Eosinophils (%) (Auto) 1.6, Basophils (%) (Auto) 0.5, Neutrophils # (Auto) 5.07, Lymphocytes # (Auto) 3.84, Monocytes # (Auto) 0.46, Eosinophils # (Auto) 0.15, Basophils # (Auto) 0.05 09/18/17 18:15 Test 09/18/17 18:15 White Blood Count 9.59 K/uL (4.8-10.8) Red Blood Count 4.55 M/uL (4.2-5.4) Hemoglobin 14.2 g/dL (12.0-16.0) Hematocrit 43.2 % (37-47) Mean Corpuscular Volume 94.9 fL (80-100) Mean Corpuscular Hemoglobin 31.2 pg (25-34) Mean Corpuscular Hemoglobin Concent 32.9 g/dl (32-36) Platelet Count 228 K/uL (130-400) Mean Platelet Volume 9.0 fL (7.4-10.4) Neutrophils (%) (Auto) 52.9 % Lymphocytes (%) (Auto) 40.0 % Monocytes (%) (Auto) 4.8 % Eosinophils (%) (Auto) 1.6 % Basophils (%) (Auto) 0.5 % Neutrophils # (Auto) 5.07 K/uL (1.4-6.5) Lymphocytes # (Auto) 3.84 K/uL (1.2-3.4) Monocytes # (Auto) 0.46 K/uL (0.11-0.59) Eosinophils # (Auto) 0.15 K/uL (0-0.5) Basophils # (Auto) 0.05 K/uL (0-0.2) RDW Standard Deviation 43.2 fL (36.4-46.3) RDW Coefficient of Variation 12.5 % (11.5-14.5) Immature Granulocyte % (Auto) 0.2 % Immature Granulocyte # (Auto) 0.02 K/uL (0.00-0.02) Prothrombin Time 10.3 SECONDS (9.0-12.0) Prothromb Time International Ratio 1.0 (0.9-1.1) Activated Partial Thromboplast Time 27.8 SECONDS (21.0-31.0) Partial Thromboplastin Ratio 1.1 Anion Gap 9.0 mmol/L (3-11) Est Creatinine Clear Calc Drug Dose 67.8 ml/min Estimated GFR () 92.8 Estimated GFR (Non- 80.0 BUN/Creatinine Ratio 24.0 (10-20) Calcium Level 8.4 mg/dl (8.5-10.1) Total Bilirubin 0.2 mg/dl (0.2-1) Direct Bilirubin < 0.1 mg/dl (0-0.2) Aspartate Amino Transf (AST/SGOT) 10 U/L (15-37) Alanine Aminotransferase (ALT/SGPT) 15 U/L (12-78) Alkaline Phosphatase 51 U/L (45-117) Troponin I < 0.015 ng/ml (0-0.045) Total Protein 6.8 gm/dl (6.4-8.2) Albumin 3.6 gm/dl (3.4-5.0) Globulin 3.2 gm/dl (2.5-4.0) Albumin/Globulin Ratio 1.1 (0.9-2) Lipase 101 U/L (73-393) Laboratory results per my review. Medications Administered Medications (Trade) Dose Ordered Sig/Shelia Route Start Time Stop Time Status Last Admin Dose Admin Levofloxacin (Levaquin Tab) 500 mg NOW ONCE PO 09/18/17 20:45 09/18/17 20:46 DC 09/18/17 20:53 500 MG ECG Indication: SOB/dyspnea Rate (beats per minute): 64 Rhythm: sinus rhythm Findings: no ectopy, other (normal axis an early R wave progression) Change: EKG interpreted by me. ED Course ED COURSE: Vital signs were reviewed and showed situational hypertension The patients medical record was reviewed The above diagnostic studies were performed and reviewed. ED treatments and interventions as stated above. 1740: The patient was evaluated in room C11. A complete history and physical examination was performed. 2044: Levaquin Tab 500mg PO 2045: Upon reevaluation, the patient is doing well.I discussed my findings with the patient and she understands and agrees with the treatment plan. Based on the patients age, coexisting illnesses, exam and lab findings the decision to treat as an outpatient was made. The patient remained stable while under my care. The patient appeared well at the time of discharge. Medical Decision Differential diagnoses includes but is not limited to pneumonia, bronchitis, COPD/Asthma exacerbation, pneumothorax, pulmonary embolism, congestive heart failure, acute coronary syndrome. Patient is a 67-year-old female who presents to ER for upper esterase symptoms which have been worsening over the past 2 weeks. The past 2 days she also had vomiting and diarrhea with abdominal cramping. Previously on azithromycin without improvement. Does have a history of COPD with a new sputum change. Lungs were clear. Abdomen was benign. CBC all BMP, LFTs, bilirubin lipase and troponin were negative. INR was normal. CT of abdomen and pelvis is unremarkable. Chest x-ray without signs of infection. Fluent and was negative. With her history of COPD, shortness of breath and change in sputum I did elect to treat her for a bronchitis with Levaquin. I do not believe this is consistent with cardiac disease. Favor clearly secondary to infectious processes. Patient was updated bedside. Discharged follow-up PCP as an outpatient. Discussed with Pt concerning signs and symptoms to watch out for. Pt was instructed to follow up with their PCP and discussed with the patient their option to return to the ED at anytime for persistent or worsening symptoms. The appropriate anticipatory guidance and out-patient management, including indications for return to the emergency department, were explained at length to the patient and understood. Medication Reconcilliation Current Medication List: was personally reviewed by me Blood Pressure Screening Patient's blood pressure: Elevated blood pressure Blood pressure disposition: Elevated BP felt to be situational Impression Primary Impression: Bronchitis Scribe Attestation The scribe's documentation has been prepared under my direction and personally reviewed by me in its entirety. I confirm that the note above accurately reflects all work, treatment, procedures, and medical decision making performed by me. Departure Information Dispostion Home / Self-Care Prescriptions Levofloxacin (Levaquin) 500 Mg Tab 500 MG PO DAILY for 6 Days, #6 TAB Prov: Bryant Ventura DO 09/18/17 Referrals Kasandra Muñoz DO (PCP) Forms HOME CARE DOCUMENTATION FORM, IMPORTANT VISIT INFORMATION, WORK / SCHOOL INSTRUCTIONS Patient Instructions ED Upper Resp Infec Abx Stephanie, [facility] Additional Instructions Please follow up with your primary care doctor with in the next 24 hours. Any worsening of your symptoms, please return to the ED immediately. This includes any fevers greater than 100.4, worsening pain, chest pain, shortness breath, persistent nausea, vomiting, unable to eat or drink, or any other concerning signs or symptoms from your standpoint. Please take the antibiotic as prescribed.
== END 2017-09-18 20:54 | disposition home or self-care (01) ==
LOC: C.EDB 16:40 → C.EDC 20:54
DX: J44.0 Chronic obstructive pulmonary disease with (acute) lower respiratory infection (principal); R03.0 Elevated blood-pressure reading, without diagnosis of hypertension; R11.10 Vomiting, unspecified; R19.7 Diarrhea, unspecified; R10.9 Unspecified abdominal pain; K21.9 Gastro-esophageal reflux disease without esophagitis; F17.200 Nicotine dependence, unspecified, uncomplicated; Z87.01 Personal history of pneumonia (recurrent); Z91.041 Radiographic dye allergy status; Z82.49 Family history of ischemic heart disease and other diseases of the circulatory system

== ENCOUNTER 2018-09-09 18:20 | Observation (INO) ==
[2018-09-09] MEDS ORDERED: ALBUT/IPRATROP 3MG/0.5MG NEB 3 ML VIAL NEB STA ×2 (19:46→21:20)
[2018-09-09] MEDS ORDERED: methylPREDNISolone 125 MG/2 ML VIAL IV STA (19:46)
--- NOTE | 2018-09-09 20:11 | XRay Report ---
XR chest 1V portable CLINICAL HISTORY: 68 years-old Female presenting with Dyspnea. TECHNIQUE: Portable upright AP view of the chest was obtained. COMPARISON: 02/08/2018. FINDINGS: Atherosclerosis of the aortic arch. Cardiac silhouette normal in size. Mild hyperinflation. No focal opacity. No large effusion or pneumothorax. Osteopenia. Upper abdomen normal. IMPRESSION: 1. Findings may suggest emphysema. No focal infiltrate to suggest pneumonia. Electronically signed by: Olman Rios M.D. 09/09/2018 8:10 PM
[2018-09-09 20:21] LABS: Basophils # (auto) 0.03 K/uL (0-0.2); Basophils % (auto) 0.3 %; Eosinophils # (auto) 0.04 K/uL (0-0.5); Eosinophils % (auto) 0.4 %; Hematocrit (blood only) 41.2 % (37-47); Hemoglobin 13.2 g/dL (12.0-16.0); Immature Granulocytes # (auto) 0.03 K/uL (0.00-0.02); Immature Granulocytes % (auto) 0.3 %; Lymphocytes # (auto) 2.36 K/uL (1.2-3.4); Lymphocytes % (auto) 21.7 %; Mean Corpuscular Volume 96.5 fL (80-100); Mean Platelet Volume 8.9 fL (7.4-10.4); Monocytes # (auto) 0.69 K/uL (0.11-0.59); Monocytes % (auto) 6.3 %; Neutrophils # (auto) 7.73 K/uL (1.4-6.5); Platelet Count 247 K/uL (130-400); RDW Coefficient of Variation 12.8 % (11.5-14.5); RDW Standard Deviation 44.7 fL (36.4-46.3); Red Blood Count 4.27 M/uL (4.2-5.4); White Blood Count 10.88 K/uL (4.8-10.8)
[2018-09-09 20:32] LABS: Partial Thromboplastin Ratio 1.1; Partial Thromboplastin Time 28.2 Seconds (21.0-31.0)
[2018-09-09 20:36] LABS: Alanine Aminotransferase 16 U/L (12-78); Albumin Level 3.8 gm/dl (3.4-5.0); Aspartate Aminotransferase 9 U/L (15-37); BUN Creatinine Ratio 15.7 (10-20); Blood Urea Nitrogen 9 mg/dl (7-18); Calcium 8.9 mg/dl (8.5-10.1); Carbon Dioxide 26 mmol/L (21-32); Chloride 105 mmol/L (98-107); Creatinine Clr Calc Pharmacy 84.6 ml/min; Est GFR (African American) 108.2; Est GFR (Non-African American) 93.4; Glucose 94 mg/dl (70-99); Potassium 3.8 mmol/L (3.5-5.1); Sodium 138 mmol/L (136-145)
[2018-09-09 20:40] LABS: Albumin Globulin Ratio 1.2 (0.9-2); Alkaline Phosphatase 54 U/L (45-117); Bilirubin,Total 0.3 mg/dl (0.2-1); Globulin 3.2 gm/dl (2.5-4.0); Troponin I < 0.015 ng/ml (0-0.045)
[2018-09-09] MEDS ORDERED: MoRPHine SULFATE 2 MG/ML CARP IV STA (23:17)
[2018-09-10] MEDS ORDERED: NITROGLYCERIN SL 0.4 MG/TAB TAB SL PRN (00:58)
[2018-09-10] MEDS ORDERED: POLYETHYLENE (MIRALAX) 17 GM PACK PO PRN (00:58)
[2018-09-10] MEDS ORDERED: FLUTICASONE/SALMETEROL 250/50 (ADVAIR) 14 PUFF/1 INHALER INH PRN (00:58)
[2018-09-10] MEDS ORDERED: ONDANSETRON INJ 2 MG/ML 2 ML VIAL IV PRN (00:58)
[2018-09-10] MEDS ORDERED: ALBUTEROL HFA 8 GM INHALER INH PRN (00:58)
[2018-09-10] MEDS ORDERED: DOCUSATE SODIUM 100 MG CAP PO PRN (00:58)
[2018-09-10] MEDS ORDERED: HYDROmorphone INJ 0.5 MG/0.5 ML SYR IV PRN (00:58)
--- NOTE | 2018-09-10 01:07 | Emergency Department Note ---
Entered by Pily Hawley acting as a scribe for ED Provider Note CHIEF COMPLAINT: Shortness of breath/dyspnea HISTORY OF PRESENT ILLNESS: The patient is a 68 year old female who presents to the Emergency Room with complaints of worsening shortness of breath that started this morning. The patient reports she feels like there is 50 pound weight on her chest. She notes her pain is worse with exertion and movement. The patient states she had similar episodes before when she had pneumonia. She notes her left breast, left arm, left side of neck and jaw hurt. The patient rates her pain as 8/10. She notes it hurts when she takes deep breaths. The patient states she has no history of heart problems. She reports she has history of COPD and is a smoker. The patient states she uses an inhaler at home and it helps. She reports she is not on steroids. The patient states she feels herself wheezing more so than usual. She notes she has chills. Pt denies LOC, headache, fevers, diaphoresis, visual changes, neck pain, nausea , vomiting, abdominal pain, back pain, melena, hematochezia, urinary symptoms, numbness, weakness, lymphadenopathy, rash, or other complaints. REVIEW OF SYSTEMS: See HPI for pertinent positives and negatives. A total of ten systems were reviewed and were otherwise negative. PMHx/PSHx: SOB COPD Acute bronchitis Hypoxia COPD Pneumonia Emphysema SOCIAL HISTORY: Patient lives at home. PHYSICAL EXAM: GENERAL: Awake, alert, uncomfortable-appearing, in no distress HENT: Normocephalic, atraumatic. Oropharynx unremarkable. EYES: Normal conjunctiva. Sclera non-icteric. NECK: Inspection normal. Non-tender. Supple. No nuchal rigidity. FROM. No masses. RESPIRATORY: Some scattered wheezes. No rales. Normal respiratory effort. CARDIAC: Normal rate. Normal rhythm. No murmurs. No rubs. Extremities warm and well perfused. Pulses equal. No JVD. GI: Soft, non-distended. No tenderness to palpation. No rebound or guarding. No masses. RECTAL: Deferred. MUSCULOSKELETAL: Atraumatic. Chest examination reveals no tenderness. The back is symmetrical on inspection without obvious abnormality. There is no CVA tenderness to palpation. No joint edema. LOWER EXTREMITIES: Calves are equal size bilaterally and non-tender. No edema. No discoloration. NEURO: Normal sensorium. No sensory or motor deficits noted. SKIN: No rash or jaundice noted. EMERGENCY DEPARTMENT COURSE: 1943: Past medical records reviewed. The patient was evaluated in room C6, and a complete history and physical examination were performed. 2045: I checked on the patient and her breathing is better. 2209: I checked on the patient. Her oxygen saturation was 89% while sleeping but increased to 93% with a couple of deep breaths. I talked to the patient about staying in the hospital. The patient and her family agree. 2215: I reviewed the patient's case with Dr. Bernal, [facility] Hospitalist. He will evaluate the patient for further management. MEDICAL DECISION MAKING: Prior records/ancillary studies reviewed. Triage Nursing notes reviewed and agree them. Additional history obtained from the family. The patient's history was concerning for shortness of breath and left-sided chest pain. Differential diagnosis: Etiologies such as pneumonia, COPD, reactive airway disease, CHF, cardiac ischemia, pulmonary embolism, pneumothorax, musculoskeletal, infections, gastrointestinal, as well as others were entertained. Physical examination: As above. ER treatment provided: Solu-Medrol DuoNeb x2 IV morphine On reassessment the patient felt better. Diagnostic interpretation by me: The electrocardiogram was negative for pathologic change. The labs revealed mild leukocytosis on CBC. Chemistry panel was unremarkable. LFTs negative. Troponin negative. Patient did have a mild left shift on differential. Coags negative. Patient's d-dimer was slightly elevated at 530. Imaging studies: Chest x-ray performed and was negative for acute pathology. The patient does have emphysematous changes. The patient has left sided chest pain. She equivocal d-dimer. The patient will need further evaluation and management in the hospital to evaluate her left -sided chest pain. She was also noted to have an oxygen saturation around 89% when sleeping. While she is awake she was noted to be around 90-93%. Consultation: A consultation was placed with the hospitalist. The case was discussed and diagnostics were reviewed. The patient was evaluated in the ER for further treatment. IMPRESSION: Left sided chest pain Leukocytosis COPD PLAN: Admit The scribe's documentation has been prepared under my direction and personally reviewed by me in its entirety. I confirm that the note above accurately reflects all work, treatment, procedures, and medical decision making performed by me. Impression & Plan Left sided chest pain, COPD (chronic obstructive pulmonary disease), Leukocytosis Past Med/Surg History Medical History Pneumonia Emphysema lung SOB (shortness of breath) (Acute) Acute bronchitis (Acute) COPD (chronic obstructive pulmonary disease) (Acute 11/17/13) Hypoxia (Acute) Family History Other Cancer HTN (hypertension) Heart disease Social History Feels Safe at Home: Yes Smoking Status: Current every day smoker Preferred Language: Pashto Results & Data Vital Signs Vital Signs - 24 hr 09/09/18 18:38 09/09/18 20:11 09/09/18 21:32 Temperature 36.8 C Temperature Source Oral Sepsis Recent Fever Within 48 Hours No Sepsis New/Unexplained Change in Mental Status No Sepsis Action Taken by Nursing No Action Required Pulse Rate 76 Pulse Rate [Left] 68 80 Respiratory Rate 24 20 19 Respiratory Effort / Characteristics Non-Labored Spontaneous Respiratory Pattern Regular Blood Pressure 139/77 Blood Pressure [Right Arm] 138/68 123/55 L Blood Pressure Mean 97 Blood Pressure Mean [Right Arm] 91 77 Blood Pressure Position [Right Arm] Sitting Pulse Oximetry 96 96 92 Oxygen Delivery Method Room Air Room Air Room Air 09/10/18 00:36 Temperature Temperature Source Sepsis Recent Fever Within 48 Hours Sepsis New/Unexplained Change in Mental Status Sepsis Action Taken by Nursing Pulse Rate 83 Pulse Rate [Left] Respiratory Rate 16 Respiratory Effort / Characteristics Respiratory Pattern Blood Pressure 108/58 L Blood Pressure [Right Arm] Blood Pressure Mean Blood Pressure Mean [Right Arm] Blood Pressure Position [Right Arm] Pulse Oximetry 94 Oxygen Delivery Method Room Air Home Medications Current Medication List: was personally reviewed by me Laboratory Data Attestation: I reviewed the patient's lab results. Result diagrams: 09/09/18 20:10 09/09/18 20:10 Lab Results 09/09/18 09/09/18 09/09/18 Range/Units 20:10 20:10 20:10 WBC 10.88 H (4.8-10.8) K/uL RBC 4.27 (4.2-5.4) M/uL Hgb 13.2 (12.0-16.0) g/dL Hct 41.2 (37-47) % MCV 96.5 (80-100) fL MCH 30.9 (25-34) pg MCHC 32.0 (32-36) g/dL RDW Std Deviation 44.7 (36.4-46.3) fL RDW Coeff of Real 12.8 (11.5-14.5) % Plt Count 247 (130-400) K/uL MPV 8.9 (7.4-10.4) fL Immature Gran % (Auto) 0.3 % Neut % (Auto) 71.0 % Lymph % (Auto) 21.7 % [place] % (Auto) 6.3 % Eos % (Auto) 0.4 % Baso % (Auto) 0.3 % Immature Gran # (Auto) 0.03 H (0.00-0.02) K/uL Neut # (Auto) 7.73 H (1.4-6.5) K/uL Lymph # (Auto) 2.36 (1.2-3.4) K/uL [place] # (Auto) 0.69 H (0.11-0.59) K/uL Eos # (Auto) 0.04 (0-0.5) K/uL Baso # (Auto) 0.03 (0-0.2) K/uL PT 10.0 (9.0-12.0) Seconds INR 1.0 (0.9-1.1) APTT 28.2 (21.0-31.0) Seconds PTT Ratio 1.1 D-Dimer (0-500) ug/L FEU Sodium 138 (136-145) mmol/L Potassium 3.8 (3.5-5.1) mmol/L Chloride 105 (98-107) mmol/L Carbon Dioxide 26 (21-32) mmol/L Anion Gap 7.0 (3-11) BUN 9 (7-18) mg/dl Creatinine 0.58 L (0.6-1.2) mg/dl Est Cr Clr Drug Dosing 84.6 ml/min Est GFR ( Amer) 108.2 Est GFR (Non-Af Amer) 93.4 BUN/Creatinine Ratio 15.7 (10-20) Glucose 94 (70-99) mg/dl Calcium 8.9 (8.5-10.1) mg/dl Total Bilirubin 0.3 (0.2-1) mg/dl AST 9 L (15-37) U/L ALT 16 (12-78) U/L Alkaline Phosphatase 54 (45-117) U/L Troponin I < 0.015 (0-0.045) ng/ml Total Protein 7.0 (6.4-8.2) gm/dl Albumin 3.8 (3.4-5.0) gm/dl Globulin 3.2 (2.5-4.0) gm/dl Albumin/Globulin Ratio 1.2 (0.9-2) Influenza Type A Ag (Neg) Influenza Type B Ag (Neg) 09/09/18 09/09/18 Range/Units 20:10 Unknown WBC (4.8-10.8) K/uL RBC (4.2-5.4) M/uL Hgb (12.0-16.0) g/dL Hct (37-47) % MCV (80-100) fL MCH (25-34) pg MCHC (32-36) g/dL RDW Std Deviation (36.4-46.3) fL RDW Coeff of Real (11.5-14.5) % Plt Count (130-400) K/uL MPV (7.4-10.4) fL Immature Gran % (Auto) % Neut % (Auto) % Lymph % (Auto) % [place] % (Auto) % Eos % (Auto) % Baso % (Auto) % Immature Gran # (Auto) (0.00-0.02) K/uL Neut # (Auto) (1.4-6.5) K/uL Lymph # (Auto) (1.2-3.4) K/uL [place] # (Auto) (0.11-0.59) K/uL Eos # (Auto) (0-0.5) K/uL Baso # (Auto) (0-0.2) K/uL PT (9.0-12.0) Seconds INR (0.9-1.1) APTT (21.0-31.0) Seconds PTT Ratio D-Dimer 530 H* (0-500) ug/L FEU Sodium (136-145) mmol/L Potassium (3.5-5.1) mmol/L Chloride (98-107) mmol/L Carbon Dioxide (21-32) mmol/L Anion Gap (3-11) BUN (7-18) mg/dl Creatinine (0.6-1.2) mg/dl Est Cr Clr Drug Dosing ml/min Est GFR ( Amer) Est GFR (Non-Af Amer) BUN/Creatinine Ratio (10-20) Glucose (70-99) mg/dl Calcium (8.5-10.1) mg/dl Total Bilirubin (0.2-1) mg/dl AST (15-37) U/L ALT (12-78) U/L Alkaline Phosphatase (45-117) U/L Troponin I (0-0.045) ng/ml Total Protein (6.4-8.2) gm/dl Albumin (3.4-5.0) gm/dl Globulin (2.5-4.0) gm/dl Albumin/Globulin Ratio (0.9-2) Influenza Type A Ag Neg for Influ A (Neg) Influenza Type B Ag Neg for Influ B (Neg) Administered Medications Discontinued Medications Albuterol (Duoneb) 3 ml NEB NOW STA Stop: 09/09/18 19:47 Last Admin: 09/09/18 20:22 Dose: 3 ml Albuterol (Duoneb) 3 ml NEB NOW STA Stop: 09/09/18 21:21 Last Admin: 09/09/18 21:32 Dose: 3 ml Diphenhydramine HCl (Benadryl) Confirm Administered Dose 50 mg .ROUTE .ST-MED ONE Stop: 09/10/18 00:30 Last Admin: 09/10/18 00:36 Dose: 50 mg Methylprednisolone (Solumedrol) 125 mg IV NOW STA Stop: 09/09/18 19:47 Last Admin: 09/09/18 20:22 Dose: 125 mg Morphine Sulfate (Morphine Sulfate) 2 mg IV NOW STA Stop: 09/09/18 23:18 Last Admin: 09/09/18 23:32 Dose: 2 mg Imaging Data Radiologist's Impression: Radiology results as stated below per my review and the radiologist's interpretation: XR chest 1V portable CLINICAL HISTORY: 68 years-old Female presenting with Dyspnea. TECHNIQUE: Portable upright AP view of the chest was obtained. COMPARISON: 02/08/2018. FINDINGS: Atherosclerosis of the aortic arch. Cardiac silhouette normal in size. Mild hyperinflation. No focal opacity. No large effusion or pneumothorax. Osteopenia. Upper abdomen normal. IMPRESSION: 1. Findings may suggest emphysema. No focal infiltrate to suggest pneumonia. Electronically signed by: Olman Rios M.D. 09/09/2018 8:10 PM ECG Data Attestation: I personally reviewed and interpreted this ECG as follows: Indication: chest pain and SOB/dyspnea Rate (beats per minute): 74 Rhythm: normal sinus Findings: no PAC, no PVC, no ST depression, no ST elevation and no acute ischemic change Blood Pressure Blood Pressure Findings: Low blood pressure Blood Pressure Disposition: further management by hospitalist Discharge Plan Visit Data Chief Complaint: Shortness of Breath/Dyspnea Stated Complaint: COPD ED Provider: Brett Wilkins Discharge Problem: Left sided chest pain, COPD (chronic obstructive pulmonary disease), Leukocytosis Patient Disposition: Being Evaluated by Hospitalist Discharge Instructions Interventions: ED Discharge Assessment Last Done: 09/10/18 00:36 The scribe's documentation has been prepared under my direction and personally reviewed by me in its entirety. I confirm that the note above accurately reflects all work, treatment, procedures, and medical decision making performed by me.
[2018-09-10] MEDS ORDERED: OPTIRAY 320 125ml IV PRN (01:19)
[2018-09-10] MEDS ORDERED: XOPENEX/ATROVENT 1.25mg/0.5MG NEB COMBO NEB SCH (02:00)
[2018-09-10] MEDS: LEVALBUTEROL 1.25MG/0.5ML NEB INH SCH ×4 (02:12→19:37)
[2018-09-10] MEDS: IPRATROPIUM BROMIDE NEB SOLN 0.02% 2.5 ML VIAL INH SCH ×4 (02:15→19:37)
[2018-09-10] MEDS: DOXYCYCLINE HYCLATE 100 MG CAP PO SCH ×3 (02:21→20:09)
[2018-09-10] MEDS ORDERED: LORazepam 0.5 MG TAB PO PRN (02:39)
--- NOTE | 2018-09-10 03:10 | History and Physical Report ---
DATE OF ADMISSION: 09/09/2018 CHIEF COMPLAINT: Shortness of breath and left-sided chest pain. HISTORY OF PRESENT ILLNESS: A 68-year-old female with past medical history significant for COPD, generalized osteoarthritis of multiple sites, cervical spondylosis, brachial neuritis, migraines, depression with anxiety, tobacco use disorder, organic sleep disorder, anxiety, presents with shortness of breath and left-sided chest pain. The patient states about since 3 weeks she is having left-sided chest pain that progressively got worse and today it got severe. Initially it was in left side of chest. Then it was radiating to her shoulder, neck, and to the left side of the head. The pain is more with movement of the hand. The pain is more now below the left axillary region and she is also getting short of breath. Walking a short distance is making her short of breath.Generally, she sleeps 5-6 hours, but lately she is sleeping almost 12 hours and she has to sit in the bed to sleep because of pain if she is lying down. Appetite is okay. Denies any sweating. No headaches. Has some dizziness. Has some cough with phlegm. Denies any fever, chills. No runny nose, no sore throat, no difficulty swallowing. No nausea, no abdominal pain. Has chronic constipation. Normal bladder movements. Currently, resting comfortably and hemodynamically stable. The patient is allergic to IVP dye with hives. She is okay to go to take CAT scan with Benadryl and she already received steroid in the ER. ALLERGIES: IVP DYE. PAST MEDICAL HISTORY: As mentioned above. PAST SURGICAL HISTORY: Colonoscopy, EGD, sinus surgery, blepharoplasty of the eyelids, partial hysterectomy, cataract surgeries, bilateral shoulder arthroscopies. MEDICATIONS: The patient is on Lexapro 10 mg p.o. daily, albuterol 2 puffs every 4 hours p.r.n., naproxen 220 mg b.i.d. p.r.n., Advair Diskus 250/50 mcg 1 puff b.i.d., Ativan 0.5 mg p.o. at bedtime p.r.n. for anxiety and insomnia, vitamin D 2000 units p.o. daily, omeprazole 20 mg p.o. daily. FAMILY HISTORY: Significant for father had liver disease, emphysema. Brother has rheumatoid arthritis, sister has rheumatoid arthritis, and brother has emphysema. SOCIAL HISTORY: , smokes quarter pack a day for the last 45 years. No alcohol use, no drug use. REVIEW OF SYMPTOMS: As per HPI. Rest of the review of symptoms negative. PHYSICAL EXAMINATION: GENERAL: The patient is of moderate build, not in acute distress. VITAL SIGNS: Temperature 36.8, pulse 80, respiratory rate 19, blood pressure 123/55, oxygen 92% on room air. HEENT: No pallor, no icterus. Pupils equal, round, and reactive to light. NECK: No JVD, no neck masses, no carotid bruits. CARDIOVASCULAR: S1, S2 heard, regular rate and rhythm, no murmur, no gallop. RESPIRATORY SYSTEM: Clear to auscultation bilaterally. No wheezing. No crackles. ABDOMEN: Soft, bowel sounds present. Nontender. No distention. CENTRAL NERVOUS SYSTEM: Cranial nerves II-XII grossly intact. Nonfocal. EXTREMITIES: No edema, no erythema. LABORATORY DATA: WBC 10.8, hemoglobin 13.2, hematocrit 41.2, platelets 247. PT 10, INR 1, APTT 28.2. D-dimer 530. Sodium 138, potassium 3.8, chloride 105. Carbon dioxide 26, BUN 9, creatinine 0.5, serum glucose 94, calcium 8.9, total bilirubin 0.3, AST 9, ALT 16, alkaline phosphatase 54, troponin I less than 0.015. Influenza A and B negative. IMAGING DATA: Chest x-ray suggests no focal infiltrate to suggest pneumonia. EKG: Normal sinus rhythm with rate of 74, no acute ST changes seen. ASSESSMENT AND PLAN: This is a 68-year-old female who presents with shortness of breath and left-sided chest pain. 1. Shortness of breath, history of chronic obstructive pulmonary disease. Was treated for chronic obstructive pulmonary disease exacerbation with steroids and nebs in the ER. Currently breathing ok, but patient has been feeling short of breath at home. Will continue IV Solu-Medrol, nebs around the clock and p.r.n., and doxycycline and oxygen. Monitor on tele floor. 2. Left-sided chest pain ongoing for last 3 weeks, very severe in nature, radiating to the left shoulder and neck and left side of the head and because of pain, she has to sit on the bed while sleeping. Pain control with IV Dilaudid p.r.n. D-dimer is slightly elevated. Because of shortness of breath and chest pain, we need to rule out PE. Patient is allergic to IVP dye with hives. She received Solu-Medrol, be given Benadryl, and will get a CTA of the chest to which patient is agreeable and also follow with serial cardiac enzymes and echocardiogram. The patient also has a history of cervical spondylosis. If above workup is negative, to consider cervical spondylosis. 3. History of depression and anxiety. Continue Lexapro and Ativan p.r.n. 4. Gastroesophageal reflux disease, continue PPI. 5. Tobacco disorder, needs counseling. 6. Organic sleep disorder. The patient is getting hypoxic when she is sleeping. Will do nocturnal pulse oximetry when patient is in the hospital. May need sleep study as outpatient. 7. Deep venous thrombosis prophylaxis, sequential compression devices for now. 8. Disposition: Admit to med/surg tele. Expect to discharge home and follow with her family doctor. Level 1 full code. MTDD
[2018-09-10] MEDS: methylPREDNISolone 40 MG in SYRINGE 0 ML IV SCH ×3 (04:36→20:08)
[2018-09-10 05:23] LABS: Basophils # (auto) 0.02 K/uL (0-0.2); Basophils % (auto) 0.3 %; Hematocrit (blood only) 38.9 % (37-47); Hemoglobin 12.5 g/dL (12.0-16.0); Immature Granulocytes # (auto) 0.03 K/uL (0.00-0.02); Immature Granulocytes % (auto) 0.5 %; Lymphocytes # (auto) 0.69 K/uL (1.2-3.4); Lymphocytes % (auto) 10.5 %; Mean Corpuscular Hgb Conc 32.1 g/dL (32-36); Mean Corpuscular Volume 96.3 fL (80-100); Mean Platelet Volume 8.8 fL (7.4-10.4); Monocytes # (auto) 0.08 K/uL (0.11-0.59); Monocytes % (auto) 1.2 %; Neutrophils # (auto) 5.73 K/uL (1.4-6.5); Neutrophils % (auto) 87.5 %; Platelet Count 231 K/uL (130-400); RDW Coefficient of Variation 12.8 % (11.5-14.5); Red Blood Count 4.04 M/uL (4.2-5.4); White Blood Count 6.55 K/uL (4.8-10.8)
[2018-09-10 05:48] LABS: BUN Creatinine Ratio 12.5 (10-20); Blood Urea Nitrogen 9 mg/dl (7-18); Calcium 8.5 mg/dl (8.5-10.1); Carbon Dioxide 26 mmol/L (21-32); Chloride 107 mmol/L (98-107); Creatinine Clr Calc Pharmacy 64.6 ml/min; Est GFR (African American) 101.7; Est GFR (Non-African American) 87.8; Glucose 144 mg/dl (70-99); Potassium 4.2 mmol/L (3.5-5.1); Sodium 140 mmol/L (136-145)
[2018-09-10 05:53] LABS: Troponin I < 0.015 ng/ml (0-0.045)
--- NOTE | 2018-09-10 06:53 | CT Scan Report ---
CT angio chest PE protocol CT DOSE: 196.74 mGy.cm HISTORY: 68 years-old Female with PE. Acute left breast and left-sided chest pain with shortness of breath TECHNIQUE: Multiple CTA images of the chest were obtained after the intravenous administration of 96 ml Optiray 320. Coronal and sagittal MIPS were obtained from the axial data set and were submitted f or review. All measurements were obtained according to NASCET criteria. A dose lowering technique wa s utilized adhering to the principles of ALARA. COMPARISON: Chest radiograph 02/08/2018, CT abdomen and pelvis 06/23/2012. FINDINGS: CTA: Heart is normal in size. No pericardial effusion. Coronary arterial calcifications are noted. There i s no thoracic aortic aneurysm or dissection. Moderate mixed plaque formation at the thoracic aorta wi th patency of the imaged great vessels. Tortuosity about the descending thoracic aorta. The pulmonary arterial tree is opacified to the level of the subsegmental branches. No acute occlusive pulmonary e mboli identified. Chronic appearing linear pulmonary emboli are seen within segmental and subsegmenta l branches of the right upper lobe, image 132 series 4. This predominantly appears peripherally locat ed within the arterial [place] with contrast noted distal to the embolus. CT CHEST: Subcentimeter hypodense left thyroid nodule. No adenopathy. Mild to moderate upper lung zone prominent centrilobular emphysema. 4 mm solid nodule of the right up per lobe, pleural-based on image 216 series 4. Mild dependent subsegmental bibasilar atelectasis. Mil d bilateral bronchial wall thickening suggestive of bronchitis. No overt pulmonary edema. Calcified g ranuloma of the left lower lobe. 1.8 cm thin-walled cyst of the left lower lobe. Central airways appe ar patent. 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 Soft tissues are within normal limits. Degenerative changes of the s houlders and spine. IMPRESSION: 1. Chronic-appearing pulmonary emboli involve segmental and subsegmental branches of the right upper lobe. No acute occlusive pulmonary embolus identified. No acute aortic pathology. 2. Emphysema. 3. 4 mm pleural-based solid nodule of the right upper lobe. 4. No adenopathy or evidence of pneumonia. Please refer to below summary of Fleischner criteria recommendations for follow-up of incidental CT n odules (H MacMahon, Guidelines for management of small pulmonary nodules detected on CT scans: A sta tement from the Fleischner Society, Radiology 237: [phone].) SOLID NODULES Solitary nodule size: <6 mm * Low risk patients: no follow-up needed * high risk patients: optional CT at 12 months Note: newly detected indeterminate nodule in persons 35 years of age or older. * Low risk patients: minimal or absent history of smoking and/or other known risk factors * high risk patients: history of smoking or of other known risk factors (e.g. first degree relative with lung cancer, or exposure to asbestos, radon, uranium) * if a nodule up to 8 mm is partly solid or is ground glass further follow-up is required after 24 m onths to exclude possible slow growing adenocarcinoma (HORACIO) The above report was generated using voice recognition software. It may contain grammatical, syntax o r spelling errors. Electronically signed by: Phill Francisco M.D. 09/10/2018 6:52 AM
[2018-09-10] MEDS: ACETAMINOPHEN 325 MG TAB PO PRN ×2 (07:59→18:50)
[2018-09-10] MEDS: ESCITALOPRAM OXALATE 10 MG TAB PO SCH (08:00)
[2018-09-10] MEDS: CHOLECALCIFEROL 1,000 UNITS TAB PO SCH (08:00)
[2018-09-10] MEDS: PANTOprazole 40 MG TAB PO SCH (08:00)
[2018-09-10] MEDS ORDERED: ESCITALOPRAM OXALATE 10 MG TAB PO SCH (09:00)
--- NOTE | 2018-09-10 17:52 | Hospitalist Progress Note ---
Date of Service September 10, 2018 Assessment & Plan (1) Left sided chest pain: atypical for angina presented with > 2 weeks of left sided chest and shoulder pain symptom starts from neck with radiation down to left shoulder , /arm suggestive of radiculipahy CT of cervical spine ordered no evidence of ACS serial cardiac markers negative , no EKG change ECHO; no wall motion abnormality pt reports of occasional chest heaviness , prior to coming to ER had severe pressure on substernal area "felt like 50 lb weight on the chest " no symptom at present need eval for CAD ( risk factors : Age /Family hx : Mother CAD with PTCA at age 81/current everyday smoking ) unable to do exercise stress test due to bilat knee arthritis ordered for Dobutamine stress test in AM NPO past midnight pt started on low dose Aspirn 81 mg daily Present on Admission?: Yes (2) COPD (chronic obstructive pulmonary disease): no formal Dx hx of detention smoking has Neb at home presented with 2-3 weeks of SOB , orthopnea ( was sleeping on recliner ) pt report improvement of symtoms after neb tx /Iv steroids no cough no fever or chills cont Neb tx , taper steroid as no audible wheeze ordered for Nocturnal pulse ox will benefit with put pt sleep study Present on Admission?: Yes (3) SOB (shortness of breath): possible due to COPD exaverbation ? symptom improved with necb tx , IV steroids cont pulmonary support no Hypoxia , remains in RA (4) Pulmonary embolism on right: incidental finding no prior hx of blood clot , no family hx of blood clot no recent travel Daughter noticed pt was sleeping more than usual used to be very active last 2-3 weeks ,was sleeping on recliner most part of the day felt weak and constant tiredness CT chest : iMPRESSION: 1. Chronic-appearing pulmonary emboli involve segmental and subsegmental branches of the right upper lobe. No acute occlusive pulmonary embolus identified. No acute aortic pathology. 2. Emphysema. 3. 4 mm pleural-based solid nodule of the right upper lobe. 4. No adenopathy or evidence of pneumonia. chronic PE involving small vessel lower ext Dopplar negative for DVT ordered for hypercoagulable work up (5) Lung nodule < 6cm on CT: yearly CT chest follow up (6) Tobacco abuse: counselled for smoking cessation Subjective no complain of chest pain or chest tightness no SOB or RANGEL no cough has palpable tenderness on neck , left shoulder and left upper arm very anxious Physical Exam 2 Vital Signs (Past 24 Hours): Last Vital Signs Temp 36.9 C 09/10/18 15:52 Pulse 88 09/10/18 15:52 Resp 16 09/10/18 15:52 BP 134/62 09/10/18 15:52 Pulse Ox 95 09/10/18 15:52 Physical Exam: GENERAL: No sign of distress,/anxious HEENT: Sclera nonicteric, Normal oral mucosa, neck: No JVD, no thyromegaly, trachea midline Lungs: Clear to auscultate, no wheeze or rales Cardiovascular: Regular S1 and S2, no murmur or gallop, no JVD, no lower extremity edema Abdomen: Soft, nontender, bowel sounds active, Extremities:point tenderness on neck worse with turning head , + tenderness on left shoulder , left arm , left flank Neuro: No focal neurological deficit, no dysarthria, no facial droop Psych: Alert awake oriented x3: Euthymic Skin: No rash LYMPH NODES: No cervical lymphadenopathy _ (1) COPD (chronic obstructive pulmonary disease) COPD type: unspecified COPD Chronic bronchitis type: Emphysema type: Qualified Code(s): J44.9 - Chronic obstructive pulmonary disease, unspecified
[2018-09-10] MEDS: ASPIRIN 81 MG ECTAB PO SCH (18:50)
--- NOTE | 2018-09-10 21:05 | Ultrasound Report ---
BILATERAL LOWER EXTREMITY VENOUS DOPPLER CLINICAL HISTORY: rt sided PE /rule out DVT COMPARISON STUDY: No previous studies for comparison. TECHNIQUE: Sonography of the deep venous system of the bilateral lower extremities was performed. Co mpression and augmentation were evaluated. FINDINGS: The bilateral common femoral, superficial femoral and popliteal veins were compressible. A ugmentation was normal. Flow was shown within the deep calf vessels. A tiny calcification within the left common femoral vein is chronic and of doubtful significance. IMPRESSION: No evidence of acute deep venous thrombus within the bilateral lower extremities. Electronically signed by: Ayush Neff M.D. 09/10/2018 9:04 PM
[2018-09-11] MEDS: IPRATROPIUM BROMIDE NEB SOLN 0.02% 2.5 ML VIAL INH SCH ×3 (01:58→14:11)
[2018-09-11] MEDS: LEVALBUTEROL 1.25MG/0.5ML NEB INH SCH ×3 (01:58→14:11)
[2018-09-11] MEDS: methylPREDNISolone 40 MG in SYRINGE 0 ML IV SCH ×2 (05:32→12:00)
[2018-09-11] MEDS: ESCITALOPRAM OXALATE 10 MG TAB PO SCH (07:12)
[2018-09-11] MEDS: PANTOprazole 40 MG TAB PO SCH (07:12)
[2018-09-11] MEDS: DOXYCYCLINE HYCLATE 100 MG CAP PO SCH (07:12)
[2018-09-11] MEDS: ASPIRIN 81 MG ECTAB PO SCH (07:12)
[2018-09-11] MEDS: CHOLECALCIFEROL 1,000 UNITS TAB PO SCH (07:12)
--- NOTE | 2018-09-11 09:04 | CT Scan Report ---
CT cervical spine wo con CT DOSE: 197.76 mGy.cm HISTORY: Pain. Neuropathy. neck pain with left shoulder/arm radiculopathy TECHNIQUE: Multiaxial CT images of the cervical spine were performed and reformatted in the sagittal and coronal plane without the use of contrast. A dose lowering technique was utilized adhering to th e principles of ALARA. COMPARISON: None. FINDINGS: Mild degenerative disc change from C5 through C7. Anterior and posterior osteophytes are pr esent at these levels. Mild reversal of the normal cervical curvature consistent with a component of muscular spasm. Vertebral body stature is unremarkable. No evidence for compression deformity. Transaxial images demonstrate mild degenerative changes C1-C2 articulation. The C2-C4 levels are unre markable. There is minimal osteophytic narrowing of the right and to lesser extent left neuroforamina at C5-C6. Mild posterior osteophytic changes noted at C5-C6 as well as C6-C7. It does not appear to be major compromise of the spinal canal or neural foramina. IMPRESSION: 1. Moderate degenerative disc change C5-C7. 2. Moderate osteophytic change anterior and posterior aspects of the C5-C6 and C6-C7 levels with mini mal osteophytic narrowing of the neural foramina. 3. Muscular spasm. 4. No significant compromise of the spinal canal or neural foramina based on CT criteria. The above report was generated using voice recognition software. It may contain grammatical, syntax or spelling errors. Electronically signed by: Shay Carter M.D. 09/11/2018 9:03 AM
[2018-09-11] MEDS ORDERED: METOPROLOL TARTRATE 1 MG/ML VIAL IV ONE ×2 (09:13)
[2018-09-11] MEDS ORDERED: ATROPINE SULFATE 0.1 MG/ML 10ML SYR IV ONE (09:13)
[2018-09-11] MEDS ORDERED: DOBUTamine HCL 12.5 MG/ML 20 ML VIAL IV ONE (09:13)
[2018-09-11] MEDS ORDERED: CYCLOBENZAPRINE HCL 10 MG TAB PO SCH (12:25)
--- NOTE | 2018-09-11 18:40 | Discharge Summary ---
Date of Service September 11, 2018 Principal Diagnosis left sided chest pain : radiculopathy due to cervical spine stenois negative cardiac Dobutaimine stress test Discharge Exam GENERAL: No sign of distress, HEENT: Sclera nonicteric, pink-purple bilateral equal reactive to light extraocular muscle intact Normal oral mucosa, neck: No JVD, no thyromegaly, trachea midline Lungs: Clear to auscultate, no wheeze or rales Cardiovascular: Regular S1 and S2, no murmur or gallop, no JVD, no lower extremity edema Abdomen: Soft, nontender, bowel sounds active, no hepatosplenomegaly Extremities: No rash or deformity, normal joint, Neuro: No focal neurological deficit, no dysarthria, no facial droop Psych: Alert awake oriented x3: Euthymic Skin: No rash LYMPH NODES: No cervical lymphadenopathy Discharge Data Allergies Allergy/AdvReac Type Severity Reaction Status Date / Time Iodinated Contrast- Oral and Allergy Intermediate HIVES Verified 09/09/18 19:44 IV Dye Consultations 09/09/18 22:53 ED Decision to Admit Stat 09/10/18 00:58 Consult Case Management - Discharge Planning Routine Ordered Studies 09/10/18 00:49 CT angio chest PE protocol Urgent 09/10/18 17:46 CT cervical spine wo con Routine 09/10/18 17:47 US venous doppler LE BI Routine Hospital Course (1) Left sided chest pain: atypical for angina presented with > 2 weeks of left sided chest and shoulder pain symptom starts from neck with radiation down to left shoulder , /arm suggestive of radiculipahy CT of cervical spine shows moderate DJD 1. Moderate degenerative disc change C5-C7. 2. Moderate osteophytic change anterior and posterior aspects of the C5-C6 and C6-C7 levels with minimal osteophytic narrowing of the neural foramina. 3. Muscular spasm. 4. No significant compromise of the spinal canal or neural foramina based on CT criteria. 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 symptom resolved with necb tx , IV steroids no Hypoxia , remains in RA no desaturation or hypoxia noted on 2 step exercise will du (4) Pulmonary embolism on right: incidental finding no prior hx of blood clot , no family hx of blood clot no recent travel Daughter noticed pt was sleeping more than usual used to be very active last 2-3 weeks ,was sleeping on recliner most part of the day felt weak and constant tiredness CT chest : iMPRESSION: 1. Chronic-appearing pulmonary emboli involve segmental and subsegmental branches of the right upper lobe. No acute occlusive pulmonary embolus identified. No acute aortic pathology. 2. Emphysema. 3. 4 mm pleural-based solid nodule of the right upper lobe. 4. No adenopathy or evidence of pneumonia. chronic PE involving small vessel lower ext Dopplar negative for DVT ordered for hypercoagulable work up -report pending will be followed with family physician (5) Lung nodule < 6cm on CT: yearly CT chest follow up (6) Tobacco abuse: counselled for smoking cessation Total Time Total Time Spent Total Time Spent (In Minutes): approx 35 mins Total Time Includes: Examination of the Patient, Discharge Planning and Medication Reconciliation Discharge Plan Discharge Items Patient Disposition: Home - Self-Care Reason For Visit: SOB, CHEST PAIN Discharge Diagnosis: COPD EXACERBATION /SOB /NECK AND SHOULDER PAIN Discharge Goals: Decrease discomfort and Therapeutic intervention Activity: Resume your previous activity Non-emergency contact: Primary Care Provider Call non-emergency contact if: you have any medication questions Follow-up/Referrals: Everett Marinelli DO [Surgeon] - (FOLLOW UP WITH SPINE ORTHO FOR CERVICAL SPINAL STENOSIS /NECK PAIN ) Kasandra Muñoz [Primary Care Provider] - 09/17/18 12:45 pm Diet: Heart Healthy Addtl Provider Instructions: NEED REFERRAL FOR SLEEP STUDY TAKE ASPIRIN 81 MG DAILY WITH MEAL EVERY DAY MRI OF NECK SHOWS CERVICAL SPINAL STENOSIS PLEASE FOLLOW UP WITH ORTHOPEDICS DR MARINELLI CT CHEST WITH CONTRAST IN 1 YEAR TO ASSESS 4 MM RT LUNG NODULE NEED TO QUIT SMOKING Prescriptions: New aspirin [Ecotrin Low Strength] 81 mg Tablet,Delayed Release (Dr/Ec) 81 mg PO QAM 30 Days Qty: 30 RF: 0 cyclobenzaprine 10 mg Tablet 10 mg PO TID PRN (Reason: MUSCLE PAIN) Qty: 60 RF: 0 prednisone 10 mg tablet See Label Instructions .ROUTE .COMPLEX Qty: 10 RF: 0 omeprazole 20 mg capsule,delayed release(DR/EC) 20 mg PO DAILY 14 Days Qty: 14 RF: 0 Continue fluticasone-salmeterol [Advair Diskus] 250-50 mcg/dose Blister With Device 1 inh INHALATION Q12H PRN (Reason: Shortness Of Breath Or Wheezing) RF: 0 docusate sodium [Colace] 100 mg Capsule 100 mg PO DAILY PRN (Reason: Constipation) RF: 0 albuterol sulfate [Ventolin HFA] 90 mcg/actuation Hfa Aerosol Inhaler 2 puff INHALATION Q6H PRN (Reason: Shortness Of Breath) RF: 0 cholecalciferol (vitamin D3) [Vitamin D3] 1,000 unit Capsule 1,000 unit PO DAILY RF: 0 lorazepam [Ativan] 0.5 mg Tablet 0.5 mg PO HS PRN (Reason: Anxiety) RF: 0 escitalopram oxalate 10 mg tablet 10 g PO DAILY RF: 0 omeprazole 20 mg 20 mg PO DAILY RF: 0 Discontinued naproxen sodium [Aleve] 220 mg Capsule 440 mg PO DIRECTED PRN (Reason: Pain) RF: 0 Stand-Alone Forms: [facility]charge Orders: Discharge Order (Routine); Ordered 09/11/18 Ordered By: Marisela Luis Admission Data Admit Date/Time: 09/09/18 23:45 Attending Provider: Marisela Luis Admit Provider: Robert Bernal Primary Care Provider: Kasandra Muñoz Other Providers: Robert Bernal Service: Telemetry Medical Other Interventions: Discharge Summary Assessment (RN) Last Done: 09/11/18 13:16 DC Date/Time DO NOT enter until pt leaves facility: 09/11/18 15:45
[2018-09-17 10:04] LABS: Anti Cardiolipin Ab IgG <14 GPL (< = 14); Anti Cardiolipin Ab IgM <12 MPL (< = 12); Anti-Thrombin III Activity 94 % activity (80-120); B2 Glycoprotein IgA <9 SAU (<=20); B2 Glycoprotein IgG <9 SGU (<=20); B2 Glycoprotein IgM <9 SMU (<=20); Lupus Anticoagulant Positive (Negative); Protein S Functional(Activity) 78 % (60-140)
--- NOTE | 2018-10-09 06:52 | Coding Query ---
A supporting diagnosis is required for the test/procedure performed on this patient in order for us to be reimbursed by the patient's insurance. Please provide a supporting diagnosis for the following test/procedure listed below next to the test name along with your signature. *If there is no additional diagnosis for this patient that would support the following test/procedure please document that below next to the test/procedure. Test(s)/Procedure(s) that require a supporting diagnosis: * [id number] FACTOR II PROTHROMBIN MUTATION DIAGNOSIS:CT chest shows chronic PE /needed hypercoagulable status for determination of need for chronic anticoagulation tx * [id number] FACTOR V MUTATION DIAGNOSIS:-see above DATE OF SERVICE: 09/10/18 Provider Signature: Marisela Luis Date: ___ ____ Thank you [facility] Information Management Once completed, please kindly fax back to [phone] For questions please call [phone] [facility]
--- NOTE | 2018-10-09 13:13 | Hospitalist Progress Note ---
Date of Service October 09, 2018 Subjective ADDENDUM NOTE;POST DISCHARGE Pt was admitted to [facility] on 09/09/18 . discharged on 09/11/18 admitted for chest pain /SOB Cardiac work up : Dobutamine stress test negative for stress induced angina pt did not had any prior hx of blood clot ,no prior family hx no hypoxia noted , no RANGEL , SOB , chest pain was resolved in next 24 hrs NOTED TO HAVE : Pulmonary embolism on right: incidental finding no prior hx of blood clot , no family hx of blood clot no recent travel Daughter noticed pt was sleeping more than usual used to be very active last 2-3 weeks ,was sleeping on recliner most part of the day felt weak and constant tiredness CT chest : iMPRESSION: 1. Chronic-appearing pulmonary emboli involve segmental and subsegmental branches of the right upper lobe. No acute occlusive pulmonary embolus identified. No acute aortic pathology. 2. Emphysema. 3. 4 mm pleural-based solid nodule of the right upper lobe. 4. No adenopathy or evidence of pneumonia. chronic PE involving small vessel lower ext Dopplar negative for DVT ordered for hypercoagulable work up -report was pending on discharged pt was discharged on Aspirin 81 mg PO daily HYPERCOAGULABLE WORK UP RESULT AVAILABLE : Factor V Leiden : Negative Prothrombin gene Mutation : Negative LUPUS ANTICOAGULANT : POSITIVE lab finding discussed with Heme onc Dr Barragan , recommends pt needs to be on penitentiary anticoagulation needs to be in Coumadin and Lovenox bridge needs referral to Heme Onc ( repeat lab in 12 weeks ) needs referral to Rheumatology for further work up [facility] updated ( pt follows with Dr Kasandra Muñoz ) Lab report Faxed to clinic Pt is scheduled to have appointment with Dr Pizarro to D/w lab report coag clinic appointment scheduled tomorrow for counselling /teaching and starting on Lovenox bridge /Coumadin called pt's home phone : left message spoke with Pts Son Arsalan Easley # [phone] updated regarding lab result and importance of his mother to follow up at clinic [facility] ( pt missed hospital follow up scheduled on 09/17/18 ) has not seen any provider since hospital discharge approx 4 weeks back Mr Easley is advised regarding importance of starting on coumadin /Lovenox high risk for life threatening blood clot if pt is having SOB , chest pain , dizzy spell should come to ER per Son pt had not had any symptom since discharge assures that he will get his mother to [facility] to start treatment my cell phone and pager # given to Pt 's son to contact me with any questions or concerns Marisela Luis MD Physical Exam Vital Signs (Past 24 Hours): Last Vital Signs Temp 36.7 C 09/11/18 13:16 Pulse 54 L 09/11/18 13:16 Resp 18 09/11/18 13:16 BP 123/64 09/11/18 13:16 Pulse Ox 96 09/11/18 13:16
== END 2018-09-11 15:45 | disposition home or self-care (01) ==
LOC: 2N 18:20 → ED 18:20 → 2N 09-10 00:36

== ENCOUNTER 2018-12-15 21:06 | Observation (INO) ==
[~2018-12-15 21:06] MED LIST changes: -CHOL100027 PO; -DOCU-94 PO; -FLVHFA110 INH; +HydrALAZINE HCL 20 MG/ML VIAL IV PRN; +LABETALOL HCL IV 5 MG/ML 20ML IV PRN; -NAPR220T40 PO; -OMEP20CA9 PO; +SODIUM CHLORIDE 0.9% 1000ML 1,000 ML IV SCH; -VNTHFA/IN INH
--- NOTE | 2018-12-15 21:19 | CT Scan Report ---
CT OF THE HEAD WITHOUT CONTRAST CLINICAL HISTORY: Stroke evaluation COMPARISON STUDY: Head CT October 27, 2018. MRI of the brain December 14, 2009. CT DOSE: 638.56 mGycm TECHNIQUE: Helical axial images of the head were obtained without IV contrast. Automated exposure con trol was utilized for the study. A dose lowering technique was utilized adhering to the principles o f ALARA. FINDINGS: No acute intracranial hemorrhage, midline shift or mass effect is present. Brain volume is normal. Ventricular system is normal. The basilar cisterns are patent. There are no extra-axial colle ctions. There are no findings to suggest acute dural sinus thrombosis or acute territorial infarct. W miguel angel matter hypodensities are unchanged and suggest small vessel disease. Postoperative findings with in the sinuses are noted. There are no significant calvarial abnormalities. There is mild frontal and ethmoid sinus mucosal thickening. IMPRESSION: No acute intracranial findings. Electronically signed by: Ayush Neff M.D. 12/15/2018 9:18 PM
[2018-12-15] MEDS ORDERED: methylPREDNISolone 125 MG/2 ML VIAL IV STA (21:27)
[2018-12-15] MEDS ORDERED: DiphenhydrAMINE HCL 50 MG/ML VIAL IV STA (21:27)
[2018-12-15 21:36] LABS: Basophils # (auto) 0.03 K/uL (0-0.2); Basophils % (auto) 0.3 %; Eosinophils # (auto) 0.14 K/uL (0-0.5); Eosinophils % (auto) 1.5 %; Hematocrit (blood only) 39.2 % (37-47); Hemoglobin 12.8 g/dL (12.0-16.0); Immature Granulocytes # (auto) 0.01 K/uL (0.00-0.02); Immature Granulocytes % (auto) 0.1 %; Lymphocytes # (auto) 2.98 K/uL (1.2-3.4); Lymphocytes % (auto) 32.6 %; Mean Corpuscular Hgb Conc 32.7 g/dL (32-36); Mean Corpuscular Volume 93.3 fL (80-100); Monocytes % (auto) 6.6 %; Neutrophils # (auto) 5.37 K/uL (1.4-6.5); Neutrophils % (auto) 58.9 %; Platelet Count 233 K/uL (130-400); RDW Coefficient of Variation 13.3 % (11.5-14.5); RDW Standard Deviation 45.4 fL (36.4-46.3); White Blood Count 9.13 K/uL (4.8-10.8)
[2018-12-15 21:46] LABS: INR 2.1 (0.9-1.1); Partial Thromboplastin Ratio 1.4; Partial Thromboplastin Time 37.3 Seconds (21.0-31.0); Prothrombin Time 20.3 Seconds (9.0-12.0)
[2018-12-15 21:53] LABS: Alanine Aminotransferase 19 U/L (12-78); Albumin Level 3.4 gm/dl (3.4-5.0); Aspartate Aminotransferase 15 U/L (15-37); BUN Creatinine Ratio 29.1 (10-20); Blood Urea Nitrogen 17 mg/dl (7-18); Calcium 8.6 mg/dl (8.5-10.1); Carbon Dioxide 22 mmol/L (21-32); Chloride 112 mmol/L (98-107); Creatinine Clr Calc Pharmacy 86.3 ml/min; Est GFR (African American) 108.9; Est GFR (Non-African American) 93.9; Glucose 86 mg/dl (70-99); Magnesium 2.3 mg/dl (1.8-2.4); Potassium 3.9 mmol/L (3.5-5.1); Sodium 141 mmol/L (136-145)
--- NOTE | 2018-12-15 21:55 | XRay Report ---
XR chest 1V portable CLINICAL HISTORY: cva COMPARISON STUDY: Chest CT September 10, 2018. FINDINGS: Lung volumes are normal. There is no pneumothorax or pleural effusion. Minimal left basilar opacity favors atelectasis. There is no evidence for pulmonary edema. Cardiomediastinal silhouette i s normal. The appearance of the chest is unchanged. IMPRESSION: No acute cardiopulmonary findings. Electronically signed by: Ayush Neff M.D. 12/15/2018 9:54 PM
[2018-12-15 21:57] LABS: Albumin Globulin Ratio 1.1 (0.9-2); Alkaline Phosphatase 55 U/L (45-117); Bilirubin,Total 0.2 mg/dl (0.2-1); Globulin 3.1 gm/dl (2.5-4.0); Total Protein 6.5 gm/dl (6.4-8.2); Troponin I < 0.015 ng/ml (0-0.045)
[2018-12-15] MEDS ORDERED: OPTIRAY 320 125ml IV PRN (22:19)
--- NOTE | 2018-12-15 22:33 | CT Scan Report ---
CTA ANGIOGRAPHY OF THE HEAD CLINICAL HISTORY: Cerebrovascular accident. COMPARISON STUDY: Head CT October 27, 2018 and December 15, 2018. MRA of the head December 14, 2009. TECHNIQUE: Helical axial images of the head were obtained following uneventful intravenous administr ation of Optiray 320. Automated exposure control was utilized for the study. A dose lowering techni que was utilized adhering to the principles of ALARA. FINDINGS: No acute intracranial hemorrhage, midline shift or mass effect is present. There is mild pl aque within the bilateral cavernous carotids. There is no stenosis or dissection within the major int racranial vessels. The left vertebral artery is dominant. Posterior circulation is intact. No intracr anial aneurysm is identified. There are no significant calvarial abnormality. Postoperative findings within the sinuses are noted. There is mild ethmoid and right frontal mucosal thickening with secreti ons. IMPRESSION: Unremarkable CTA of the head for age. Electronically signed by: Ayush Neff M.D. 12/15/2018 10:31 PM
--- NOTE | 2018-12-15 22:36 | CT Scan Report ---
CT ANGIOGRAPHY OF THE NECK WITH CONTRAST CLINICAL HISTORY: Cerebrovascular accident. COMPARISON STUDY: Carotid ultrasound April 24, 2014. MRA of the neck December 14, 2009. Technique: CT angiography of the carotid and vertebral arteries was obtained using [employer]ourist 320 IV and 3D reconstruction on an independent workstation. NASCET criteria was utilized. Automated exposure c ontrol was utilized for the study. A dose lowering technique was utilized adhering to the principles of ALARA. Findings: There is no stenosis within the bilateral common carotid, cervical internal carotid or vert ebral arteries. There is no dissection. There is mild atherosclerotic plaque. Mild emphysema is noted within the lung apices. There is no cervical lymphadenopathy. The CTA of the head will be reported s eparately. There are postoperative findings within the sinuses. Epiglottis is normal. IMPRESSION: No stenosis or dissection within the major vessels of the neck. Electronically signed by: Ayush Neff M.D. 12/15/2018 10:35 PM
--- NOTE | 2018-12-15 22:43 | CT Scan Report ---
CT OF THE ABDOMEN AND PELVIS WITH CONTRAST CLINICAL HISTORY: Right flank pain. COMPARISON STUDY: CT of the abdomen and pelvis September 18, 2017. TECHNIQUE: Following IV administration of Optiray-320, axial images of the abdomen and pelvis were ob tained from the lung bases to the proximal femurs. Images were reviewed in the axial, sagittal, and c oronal planes. IV contrast was administered without complication. Automated exposure control was uti lized for the study. A dose lowering technique was utilized adhering to the principles of ALARA. CT DOSE: 823.65 mGy.cm FINDINGS: Bilateral adrenal hypodense lesions are unchanged. These reflect adenomas. The liver, splee n and pancreas are unremarkable. There is no biliary or pancreatic ductal dilatation. No peripancreat ic or pericholecystic infiltration. Left renal subcapsular hypodensity with calcification is unchange d with this is chronic. There is no hydronephrosis. There is moderate distention of the bladder. No u reteral calculi are identified. The caliber and wall thickness of small and large bowel are normal. T he appendix is normal. No pneumatosis, free air or portal venous gas is present. No suspicious osseou s lesion is noted. There is no lymphadenopathy. IMPRESSION: 1. No acute process within the abdomen or pelvis. 2. Moderate distention of the bladder. 3. Normal appendix. No bowel obstruction. Electronically signed by: Ayush Neff M.D. 12/15/2018 10:42 PM
--- NOTE | 2018-12-15 23:08 | Emergency Department Note ---
Entered by Volodymyr Lundberg acting as a scribe for Akin Bianchi DO History of Present Illness General Chief complaint: Stroke Alert Stated complaint: STROKE SX Source: patient and EMS History of Present Illness Provider complaint: Stroke Onset (ago): hour(s) 2 Location: left and right Quality: + constant Relieved By: + none Associated symptoms: + denies other symptoms (diarrhea, abd pain) and + weakness; no fever/chills and no nausea/vomiting The patient is a 68 year old female with a history of COPD, PE, lupus, and bronchitis who presents to the Emergency Room via EMS with complaints of a stroke suffered approximately 2 hours ago. The patient is alert and oriented. Per EMS, the patient was getting out of her car, when she had a sudden pain in the right kidney area describing it as if she "got hit with a baseball bat". The noticed she is weak on her left side and her left foot and arm and that her face has decreased sensation. EMS adds that the patient goes off into a gaze. The patient complains of a sensation in her left carotid that felt like something was "crawling inside". EMS denies that the patient has speech slurring. The patient denies any recent illness including fevers, diarrhea, vomiting. The patient denies any trauma. The patient is on Coumadin for her history of PE. Home Medications Home Medications Medication Instructions Recorded Confirmed Type albuterol sulfate [Ventolin HFA] 2 puff INHALATION Q6H PRN 09/09/18 12/15/18 History docusate sodium [Colace] 100 mg PO QAM 09/09/18 12/15/18 History fluticasone propion-salmeterol 1 inh INHALATION Q12H PRN 09/09/18 12/15/18 History [Advair Diskus] cyclobenzaprine 10 mg PO TID PRN #60 tab 09/11/18 12/15/18 Rx acetaminophen [Tylenol] 325 mg PO Q6H PRN 10/27/18 12/15/18 History calcium carbonate [Calcium 600] 600 mg PO QAM 12/15/18 12/15/18 History cholecalciferol (vitamin D3) 1,000 unit PO DAILY 12/15/18 12/15/18 History omeprazole 20 mg PO DAILY PRN 12/15/18 12/15/18 History warfarin 5 mg PO 5XWK 12/15/18 12/15/18 History warfarin 7.5 mg PO 2XWK 12/15/18 12/15/18 History Allergies Allergy/AdvReac Type Severity Reaction Status Date / Time Iodinated Contrast- Oral and Allergy Intermediate HIVES Verified 12/15/18 22:53 IV Dye Past Med/Surg History Medical History Pneumonia Emphysema lung SOB (shortness of breath) (Acute) Acute bronchitis (Acute) COPD (chronic obstructive pulmonary disease) (Acute 11/17/13) Hypoxia (Acute) Hx of cataract Lupus Pulmonary emboli Surgical History Hx of shoulder surgery Family History Other Cancer Heart disease Hypertension Social History Preferred Language: Telugu Communication Ability: Effective Beliefs That Will Affect Care: None marital status: Current Living Situation: Spouse current occupational status: retired Feels Safe at Home: Yes Smoking Status: Current every day smoker Tobacco Type: cigarettes Cigarettes Per Day: 5 Hx Alcohol Use: No Hx Substance Use: No Review of Systems See HPI for pertinent positives & negatives. and A total of 10 systems reviewed and were otherwise negative Physical Exam Vital Signs Vital Signs - 24 hr 12/15/18 21:15 12/15/18 21:17 12/15/18 21:19 Temperature 36.8 C Temperature Source Oral Sepsis Recent Fever Within 48 Hours No Sepsis Action Taken by Nursing No Action Required Pulse Rate 71 75 72 Pulse Rate from SpO2 Sensor 76 73 Respiratory Rate 18 16 20 Respiratory Effort / Characteristics Non-Labored Respiratory Depth Normal Blood Pressure 174/81 H 174/81 H Blood Pressure Mean 112 112 Pulse Oximetry 97 96 96 Oxygen Delivery Method Room Air 12/15/18 21:20 12/15/18 21:30 12/15/18 21:31 Temperature Temperature Source Sepsis Recent Fever Within 48 Hours Sepsis Action Taken by Nursing Pulse Rate 74 75 71 Pulse Rate from SpO2 Sensor 74 75 72 Respiratory Rate 15 17 17 Respiratory Effort / Characteristics Respiratory Depth Blood Pressure 145/80 H Blood Pressure Mean 101 Pulse Oximetry 96 96 96 Oxygen Delivery Method 12/15/18 21:40 12/15/18 21:54 12/15/18 22:27 Temperature Temperature Source Sepsis Recent Fever Within 48 Hours Sepsis Action Taken by Nursing Pulse Rate 70 71 71 Pulse Rate from SpO2 Sensor 70 71 71 Respiratory Rate 18 19 19 Respiratory Effort / Characteristics Respiratory Depth Blood Pressure 141/78 H Blood Pressure Mean 99 Pulse Oximetry 97 97 99 Oxygen Delivery Method Room Air Room Air 12/15/18 22:31 Temperature Temperature Source Sepsis Recent Fever Within 48 Hours Sepsis Action Taken by Nursing Pulse Rate 70 Pulse Rate from SpO2 Sensor 70 Respiratory Rate 15 Respiratory Effort / Characteristics Respiratory Depth Blood Pressure 142/73 H Blood Pressure Mean 96 Pulse Oximetry 98 Oxygen Delivery Method Room Air VITAL SIGNS: were reviewed as above. GENERAL:Non-toxic in appearance. SKIN: Warm dry and pink. HEAD: Normocephalic and atraumatic. OROPHARYNX: Is clear and moist NECK: Supple without lymphadenopathy or meningismus. LUNGS: clear. HEART: Regular rate and rhythm. ABDOMEN: Soft and nontender. EXTREMITIES: Warm and well perfused. NEUROLOGICALLY: Awake alert and oriented. Left arm and leg weakness, slight sensation difference in left side compared to right. Cranial nerves 2-12 are intact. There is no pronator drift. Cerebellar testing is within normal limits. There is no nystagmus. There is no facial droop. Speech is clear. Vision is grossly normal. MUSCULOSKELETAL: Good muscle tone. No evidence of trauma. Course 2119: The patient was evaluated in room B01 (later moved to room A10). A complete history and physical exam was performed. 2121: I reviewed the case with Dr. Monterroso. He will follow up with the patient after a CT. 2256: [facility] He will evaluate the patient. Consultations Consultation #1: 2121: I reviewed the case with Dr. Monterroso. He will follow up with the patient after a CT. Time: : Consultation #2: 2256: I reviewed the [facility] He will evaluate the patient. Time: 22:57 Administered Medications Sodium Chloride (Nss 1000ml) 1,000 mls @ 50 mls/hr IV .Q20H RAFY Stop: 01/14/19 20:59 Last Admin: 12/15/18 22:31 Dose: 50 mls/hr Documented by: [id number] Ioversol (Optiray 320 125ml) 119 ml IV ONCE PRN PRN Reason: Interaction Checking Stop: 12/19/18 22:18 Last Admin: 12/15/18 22:19 Dose: 119 ml Documented by: [id number] Discontinued Medications Diphenhydramine HCl (Benadryl) 50 mg IV NOW STA Stop: 12/15/18 21:28 Last Admin: 12/15/18 22:06 Dose: 50 mg Documented by: [id number] Methylprednisolone (Solumedrol) 125 mg IV NOW STA Stop: 12/15/18 21:28 Last Admin: 12/15/18 22:06 Dose: 125 mg Documented by: [id number] Medical Decision Making Differential Diagnosis Differential includes acute coronary syndrome, myocardial infarction, CVA, TIA, anemia, infection, pneumonia, UTI, pyelonephritis, poor nutrition, dehydration, electrolyte disturbance,hypoglycemia. Medical Records Attestation: I reviewed the patient's medical records. Home Medications Current Medication List: was personally reviewed by me Laboratory Data Attestation: I reviewed the patient's lab results. Result diagrams: 12/15/18 21:28 12/15/18 21:28 Lab Results 12/15/18 12/15/18 12/15/18 Range/Units 21:28 21:28 21:28 WBC 9.13 (4.8-10.8) K/uL RBC 4.20 (4.2-5.4) M/uL Hgb 12.8 (12.0-16.0) g/dL Hct 39.2 (37-47) % MCV 93.3 (80-100) fL MCH 30.5 (25-34) pg MCHC 32.7 (32-36) g/dL RDW Std Deviation 45.4 (36.4-46.3) fL RDW Coeff of Real 13.3 (11.5-14.5) % Plt Count 233 (130-400) K/uL MPV 9.0 (7.4-10.4) fL Immature Gran % (Auto) 0.1 % Neut % (Auto) 58.9 % Lymph % (Auto) 32.6 % [place] % (Auto) 6.6 % Eos % (Auto) 1.5 % Baso % (Auto) 0.3 % Immature Gran # (Auto) 0.01 (0.00-0.02) K/uL Neut # (Auto) 5.37 (1.4-6.5) K/uL Lymph # (Auto) 2.98 (1.2-3.4) K/uL [place] # (Auto) 0.60 H (0.11-0.59) K/uL Eos # (Auto) 0.14 (0-0.5) K/uL Baso # (Auto) 0.03 (0-0.2) K/uL PT 20.3 H (9.0-12.0) Seconds INR 2.1 H (0.9-1.1) APTT 37.3 H (21.0-31.0) Seconds PTT Ratio 1.4 Sodium 141 (136-145) mmol/L Potassium 3.9 (3.5-5.1) mmol/L Chloride 112 H (98-107) mmol/L Carbon Dioxide 22 (21-32) mmol/L Anion Gap 7.0 (3-11) BUN 17 (7-18) mg/dl Creatinine 0.57 L (0.6-1.2) mg/dl Est Cr Clr Drug Dosing 86.3 ml/min Est GFR ( Amer) 108.9 Est GFR (Non-Af Amer) 93.9 BUN/Creatinine Ratio 29.1 H (10-20) Glucose 86 (70-99) mg/dl Calcium 8.6 (8.5-10.1) mg/dl Magnesium 2.3 (1.8-2.4) mg/dl Total Bilirubin 0.2 (0.2-1) mg/dl AST 15 (15-37) U/L ALT 19 (12-78) U/L Alkaline Phosphatase 55 (45-117) U/L Troponin I < 0.015 (0-0.045) ng/ml Total Protein 6.5 (6.4-8.2) gm/dl Albumin 3.4 (3.4-5.0) gm/dl Globulin 3.1 (2.5-4.0) gm/dl Albumin/Globulin Ratio 1.1 (0.9-2) Blood Type Antibody Screen 12/15/18 Range/Units 21:28 WBC (4.8-10.8) K/uL RBC (4.2-5.4) M/uL Hgb (12.0-16.0) g/dL Hct (37-47) % MCV (80-100) fL MCH (25-34) pg MCHC (32-36) g/dL RDW Std Deviation (36.4-46.3) fL RDW Coeff of Real (11.5-14.5) % Plt Count (130-400) K/uL MPV (7.4-10.4) fL Immature Gran % (Auto) % Neut % (Auto) % Lymph % (Auto) % [place] % (Auto) % Eos % (Auto) % Baso % (Auto) % Immature Gran # (Auto) (0.00-0.02) K/uL Neut # (Auto) (1.4-6.5) K/uL Lymph # (Auto) (1.2-3.4) K/uL [place] # (Auto) (0.11-0.59) K/uL Eos # (Auto) (0-0.5) K/uL Baso # (Auto) (0-0.2) K/uL PT (9.0-12.0) Seconds INR (0.9-1.1) APTT (21.0-31.0) Seconds PTT Ratio Sodium (136-145) mmol/L Potassium (3.5-5.1) mmol/L Chloride (98-107) mmol/L Carbon Dioxide (21-32) mmol/L Anion Gap (3-11) BUN (7-18) mg/dl Creatinine (0.6-1.2) mg/dl Est Cr Clr Drug Dosing ml/min Est GFR ( Amer) Est GFR (Non-Af Amer) BUN/Creatinine Ratio (10-20) Glucose (70-99) mg/dl Calcium (8.5-10.1) mg/dl Magnesium (1.8-2.4) mg/dl Total Bilirubin (0.2-1) mg/dl AST (15-37) U/L ALT (12-78) U/L Alkaline Phosphatase (45-117) U/L Troponin I (0-0.045) ng/ml Total Protein (6.4-8.2) gm/dl Albumin (3.4-5.0) gm/dl Globulin (2.5-4.0) gm/dl Albumin/Globulin Ratio (0.9-2) Blood Type O Positive Antibody Screen NEGATIVE Imaging Data Radiologist's Impression: Radiology results as stated below per my review and the radiologist's interpretation: CT OF THE HEAD WITHOUT CONTRAST CLINICAL HISTORY: Stroke evaluation COMPARISON STUDY: Head CT October 27, 2018. MRI of the brain December 14, 2009. CT DOSE: 638.56 mGycm TECHNIQUE: Helical axial images of the head were obtained without IV contrast. Automated exposure control was utilized for the study. A dose lowering technique was utilized adhering to the principles of ALARA. FINDINGS: No acute intracranial hemorrhage, midline shift or mass effect is present. Brain volume is normal. Ventricular system is normal. The basilar c isterns are patent. There are no extra-axial collections. There are no findings to suggest acute dural sinus thrombosis or acute territorial infarct. White matter hypodensities are unchanged and suggest small vessel disease. Postoperative findings within the sinuses are noted. There are no significant calvarial abnormalities. There is mild frontal and ethmoid sinus mucosal thickening. IMPRESSION: No acute intracranial findings. Electronically signed by: Ayush Neff M.D. 12/15/2018 9:18 PM XR chest 1V portable CLINICAL HISTORY: cva COMPARISON STUDY: Chest CT September 10, 2018. FINDINGS: Lung volumes are normal. There is no pneumothorax or pleural effusion. Minimal left basilar opacity favors atelectasis. There is no evidence for p ulmonary edema. Cardiomediastinal silhouette is normal. The appearance of the chest is unchanged. IMPRESSION: No acute cardiopulmonary findings. Electronically signed by: Ayush eNff M.D. 12/15/2018 9:54 PM CTA ANGIOGRAPHY OF THE HEAD CLINICAL HISTORY: Cerebrovascular accident. COMPARISON STUDY: Head CT October 27, 2018 and December 15, 2018. MRA of the head December 14, 2009. TECHNIQUE: Helical axial images of the head were obtained following uneventful intravenous administration of Optiray 320. Automated exposure control was utilized for the study. A dose lowering technique was utilized adhering to the principles of ALARA. FINDINGS: No acute intracranial hemorrhage, midline shift or mass effect is present. There is mild plaque within the bilateral cavernous carotids. There is no stenosis or dissection within the major intracranial vessels. The left vertebral artery is dominant. Posterior circulation is intact. No intracranial aneurysm is identified. There are no significant calvarial abnormality. Postoperative findings within the sinuses are noted. There is mild ethmoid and right frontal mucosal thickening with secretions. IMPRESSION: Unremarkable CTA of the head for age. Electronically signed by: Ayush Neff M.D. 12/15/2018 10:[address] ANGIOGRAPHY OF THE NECK WITH CONTRAST CLINICAL HISTORY: Cerebrovascular accident. COMPARISON STUDY: Carotid ultrasound April 24, 2014. MRA of the neck December 14, 2009. Technique: CT angiography of the carotid and vertebral arteries was obtained using Optiray 320 IV and 3D reconstruction on an independent workstation. NASCET criteria was utilized. Automated exposure control was utilized for the study. A dose lowering technique was utilized adhering to the principles of ALARA. Findings: There is no stenosis within the bilateral common carotid, cervical internal carotid or vertebral arteries. There is no dissection. There is mild atherosclerotic plaque. Mild emphysema is noted within the lung apices. There is no cervical lymphadenopathy. The CTA of the head will be reported separately. There are postoperative findings within the sinuses. Epiglottis is normal. IMPRESSION: No stenosis or dissection within the major vessels of the neck. Electronically signed by: Ayush Neff M.D. 12/15/2018 10:[address] OF THE ABDOMEN AND PELVIS WITH CONTRAST CLINICAL HISTORY: Right flank pain. COMPARISON STUDY: CT of the abdomen and pelvis September 18, 2017. TECHNIQUE: Following IV administration of Optiray-320, axial images of the abdomen and pelvis were obtained from the lung bases to the proximal femurs. Images were reviewed in the axial, sagittal, and coronal planes. IV contrast was administered without complication. Automated exposure control was utilized for the study. A dose lowering technique was utilized adhering to the principles of ALARA. CT DOSE: 823.65 mGy.cm FINDINGS: Bilateral adrenal hypodense lesions are unchanged. These reflect adenomas. The liver, spleen and pancreas are unremarkable. There is no biliary or pancreatic ductal dilatation. No peripancreatic or pericholecystic infiltration. Left renal subcapsular hypodensity with calcification is unchanged with this is chronic. There is no hydronephrosis. There is moderate distention of the bladder. No ureteral calculi are identified. The caliber and wall thickness of small and large bowel are normal. The appendix is normal. No pneumatosis, free air or portal venous gas is present. No suspicious osseous lesion is noted. There is no lymphadenopathy. IMPRESSION: 1. No acute process within the abdomen or pelvis. 2. Moderate distention of the bladder. 3. Normal appendix. No bowel obstruction. Electronically signed by: Ayush Neff M.D. 12/15/2018 10:42 PM ECG Data Attestation: I personally reviewed and interpreted this ECG as follows: Indication: weakness Rate (beats per minute): 75 Rhythm: normal sinus Findings: no PAC, no PVC, no ST elevation and no ectopy Blood Pressure Blood Pressure Findings: Elevated blood pressure Blood Pressure Disposition: further management by hospitalist EFREN An This is a 68-year-old female who presents to the ED with a chief complaint of stroke symptoms. The patient symptoms started around 7:30 PM tonight. She states that she got out of her car to get some groceries out and carry them in the house when she suddenly developed a sudden severe right flank/low back pain. The patient was assisted into her house by a friend. He states that she was hunched over and seem to be having difficulty walking and pain in the back. The patient was then noted to have weakness in her left arm and leg. She was brought to the hospital for evaluation. Prehospital blood sugar was normal. The patient is on Coumadin for history of PE. She also reports a history of lupus and allergies to IV dye. Her initial CT scan did not show any evidence of acute abnormality. Her exam reveals left arm and left leg weakness as well as some decreased sensation in those areas compared to the right side. The patient is normally ambulatory and functional with all extremities. The patient is awake, alert and oriented and answers questions appropriately. She follows commands normally. Her INR today is 2.1. An EKG shows a normal sinus rhythm. CT angiogram of the head and neck was normal. Chest x-ray was negative for acute disease. CT scan of the abdomen pelvis was also negative for acute disease. Troponin was negative. Metabolic panel was unremarkable. The patient was told the results. I did speak with the neurologist on-call as the patient was a stroke alert. Dr. Estrada reports that the patient is not a thrombolytic candidate due to her Coumadin and elevated INR. He recommended to contact him back if there was abnormalities on the CT angiogram. Because these were normal, I spoke with the hospitalist for further inpatient evaluation and care. Impression & Plan Acute CVA (cerebrovascular accident) The scribe's documentation has been prepared under my direction and personally reviewed by me in its entirety. I confirm that the note above accurately reflects all work, treatment, procedures, and medical decision making performed by me.
[2018-12-16] MEDS ORDERED: CYCLOBENZAPRINE HCL 10 MG TAB PO PRN (01:09)
[2018-12-16] MEDS ORDERED: PANTOprazole 40 MG TAB PO PRN (01:09)
[2018-12-16] MEDS ORDERED: ONDANSETRON INJ 2 MG/ML 2 ML VIAL IV PRN (01:09)
[2018-12-16] MEDS ORDERED: NITROGLYCERIN SL 0.4 MG/TAB TAB SL PRN (01:09)
[2018-12-16] MEDS ORDERED: ACETAMINOPHEN 325 MG TAB PO PRN (01:09)
[2018-12-16] MEDS ORDERED: FLUTICASONE/SALMETEROL 250/50 (ADVAIR) 14 PUFF/1 INHALER INH PRN (01:09)
[2018-12-16] MEDS ORDERED: PHARMACIST DISCHARGE MED REC CONSULT PRN (01:09)
[2018-12-16] MEDS ORDERED: ALBUTEROL HFA 8 GM INHALER INH PRN (01:09)
[2018-12-16] MEDS: SODIUM CHLORIDE 0.9% 1000ML 1,000 ML IV SCH ×2 (02:15→16:06)
--- NOTE | 2018-12-16 03:15 | History and Physical Report ---
DATE OF ADMISSION: 12/16/2018 CHIEF COMPLAINT: Stroke-like symptoms. HISTORY OF PRESENT ILLNESS: This is a 68-year-old female with past medical history significant for COPD, generalized osteoarthritis, cervical spondylosis, history of cervicalgia, migraines, lupus anticoagulant positive, depression with anxiety, tobacco use disorder, history of PE, on Coumadin, INR therapeutic, presents with stroke-like symptoms. The patient went to the grocery store and came back and was trying to get out of car when she started to have pain in the right flank region and the family noted that she is weak on the left side and she also felt like something crawling in her left side of the neck, but her speech was okay and she was brought in here and stroke alert was called. CT of the head was unremarkable. The ER physician talked to Heather's stroke neurologist. As the patient's INR was 2.1, not a candidate for anticoagulation, but advised to get a CTA of the head and neck and to call them if any abnormality. CTA of the head and neck was unremarkable so we are called for admission. The patient is allergic to IV DYE, so she was given Benadryl and steroid for the CT scans. The patient has somewhat occasional pressured speech, but the [id number] who is in the room says it is mostly because of Benadryl. The patient constantly says that something crawling in the back of her neck on the left side. This has been going on for last couple of weeks, but it got slightly worse. Denies any headache. She has some blurred vision. She is supposed to see eye doctor. No earaches, no sore throat, no difficulty swallowing. No chest pain or shortness of breath. No cough, no fever, no chills, no nausea, no abdominal pain. Normal bowel and bladder movements. No blood in the stools, no hematuria, no burning micturition. No melena or hematochezia. No swelling in the legs. No rash. The patient seems somewhat anxious. ALLERGIES: IVP DYE. PAST MEDICAL HISTORY: As mentioned above. PAST SURGICAL HISTORY: Colonoscopy, EGDs, sinus surgery, partial hysterectomy, blepharoplasty of the eyelids, bilateral shoulder arthroscopy, bilateral cataract surgery and sinus surgery. MEDICATIONS: The patient is on calcium 600 mg p.o. t.i.d., Coumadin as directed, Lexapro 10 mg p.o. daily, albuterol 2 puffs every 6 hours p.r.n., Advair Diskus 250/50 one puff b.i.d., Ativan 0.5 mg p.o. at bedtime, vitamin D 2000 units p.o. daily, omeprazole 20 mg p.o. daily. FAMILY HISTORY: Significant for mother had colon cancer, heart disorder. Father had lung disorder, Alzheimer disease. Sister has ovarian cancer. Brother has esophageal cancer. Sister has pulmonary embolus, rheumatoid arthritis. SOCIAL HISTORY: , lives with her , smokes quarter pack a day for last 45 years. No alcohol use, no drug use. REVIEW OF SYMPTOMS: As per HPI. Rest of review of systems is negative. PHYSICAL EXAMINATION: GENERAL: The patient is of moderate build, not in acute distress currently. VITAL SIGNS: Temperature 36.8, pulse 70, respiratory rate 15, blood pressure 142/73, oxygen 98% room air. HEENT: No pallor, no icterus. Pupils equal, round, and reactive to light. NECK: No JVD, no neck mass, no carotid bruit. CARDIOVASCULAR: S1, S2 heard, regular rate and rhythm. No murmur, no gallop. RESPIRATORY SYSTEM: Normal AP diameter. No accessory muscle use. No wheezing, no crackles. ABDOMEN: Soft, bowel sounds present. Nontender. No distention. CENTRAL NERVOUS SYSTEM: Alert and oriented x3, recent and remote memory intact. Speech is normal. Power 3/5 in the left extremities. Sensation is intact. Position sense intact. Having difficulty lifting upper extremities. EXTREMITIES: No edema, no erythema seen. MUSCULOSKELETAL: No spinal tenderness seen. LABORATORIES: WBC 9.1, hemoglobin 12.8, hematocrit 39.2 and platelets 233. PT 20.3, INR 2.1, APTT 27.3. Sodium 141, potassium 3.9, chloride 112, bicarbonate 22, BUN 17, creatinine 0.5, serum glucose 86, calcium 8.6, magnesium 2.3, total bilirubin 0.2, AST 15, ALT 19, alkaline phosphatase 55. Troponin I less than 0.015. CT of the abdomen and pelvis, no acute process within the abdomen or pelvis. Moderate distention of bladder, normal appendix, no bowel obstruction. CTA of the neck unremarkable. CTA of the head unremarkable. Chest x-ray, no acute findings. CT of the head, no acute findings. EKG: Normal sinus rhythm with a rate of 75. No significant change from previous EKG. ASSESSMENT AND PLAN: This is a 68-year-old female who presents with stroke like symptoms with weakness in the left extremities and she has no other complaints. CT head and CTA of the head and neck are unremarkable. The patient received benadryl for IV contrast allergy. Having some pressured speech which is attributed to Benadryl by her family. Hemodynamically stable. The patient also has complaints of the cervical spine pain, something crawling there. We will do the MRI scan of the head and neck. Continue her home Coumadin. We will start on aspirin. We will check echocardiogram. Neuro checks. Close monitoring in tele floor. Speech evaluation, PT, OT evaluation. Neuro evaluation. 2. History of pulmonary embolism, lupus . On Coumadin. INR is therapeutic. 3. History of tobacco abuse, history of chronic obstructive pulmonary disease. Continue home inhalers, currently stable. 4. History of depression and anxiety. Continue Ativan p.r.n. and Lexapro. 5. Gastroesophageal reflux disease, on proton pump inhibitor. 6. Deep venous thrombosis prophylaxis, sequential compression devices for now. INR is the therapeutic. 6. Disposition: Close monitoring in the tele floor. Level 1 full code. MTDD
[2018-12-16 05:46] LABS: Immature Granulocytes # (auto) 0.01 K/uL (0.00-0.02); Immature Granulocytes % (auto) 0.2 %; Lymphocytes # (auto) 0.72 K/uL (1.2-3.4); Mean Corpuscular Hgb Conc 33.3 g/dL (32-36); Mean Corpuscular Volume 92.6 fL (80-100); Mean Platelet Volume 9.1 fL (7.4-10.4); Monocytes # (auto) 0.06 K/uL (0.11-0.59); Monocytes % (auto) 1.2 %; Neutrophils # (auto) 4.35 K/uL (1.4-6.5); Neutrophils % (auto) 84.6 %; Platelet Count 231 K/uL (130-400); RDW Coefficient of Variation 13.2 % (11.5-14.5); RDW Standard Deviation 45.1 fL (36.4-46.3); Red Blood Count 4.21 M/uL (4.2-5.4); White Blood Count 5.14 K/uL (4.8-10.8)
[2018-12-16 05:59] LABS: Prothrombin Time 19.6 Seconds (9.0-12.0)
[2018-12-16 06:14] LABS: BUN Creatinine Ratio 22.1 (10-20); Calcium 8.7 mg/dl (8.5-10.1); Creatinine Clr Calc Pharmacy 90.4 ml/min; Est GFR (African American) 110.8; Est GFR (Non-African American) 95.6; Potassium 4.2 mmol/L (3.5-5.1)
[2018-12-16] MEDS: CALCIUM 600MG + VIT D 400 IU TAB PO SCH (07:51)
[2018-12-16] MEDS: CHOLECALCIFEROL 1,000 UNITS TAB PO SCH (07:51)
[2018-12-16] MEDS: ASPIRIN 81 MG ECTAB PO SCH (07:51)
[2018-12-16] MEDS: ATORVASTATIN 40 MG TAB PO SCH (07:51)
[2018-12-16] MEDS: DOCUSATE SODIUM 100 MG CAP PO SCH (07:52)
[2018-12-16] MEDS ORDERED: GADOBUTROL 30ML VIAL IV PRN (11:50)
--- NOTE | 2018-12-16 12:20 | Magnetic Resonance Report ---
MRI OF THE BRAIN COMBO CLINICAL HISTORY: Strokelike symptoms. Left-sided neck pain. COMPARISON STUDY: CT and CT angiogram of the brain dated 12/15/2018. TECHNIQUE: MRI of the brain was performed utilizing various T1 and T2-weighted sequences in the axial , sagittal, and coronal planes. Contrast-enhanced sequences were acquired following the administratio n of 6.5 cc of Gadavist. FINDINGS: Brain parenchyma: There is age-related involutional change noting moderate subcortical and periventri cular microangiopathic disease. There is no hemorrhage or mass effect. There is no restricted diffusi on to suggest acute ischemia. No enhancing mass lesion is identified on the postcontrast images. A sm all developmental venous anomaly is incidentally noted in the left frontal lobe. Barragan-white matter di fferentiation is preserved. No extra-axial fluid collection is seen. The cerebellar tonsils are jack l in configuration. Ventricles, sulci, and cisterns: Prominent secondary to involutional change. Pituitary and sella: Partially empty sella is incidentally noted. Intracranial vasculature: Normal flow voids are maintained at the skull base. Orbits: The bony orbits are grossly intact. Orbital contents are normal in appearance, noting bilater al ocular lens implants. Sinuses and mastoids: Mucosal thickening is seen within the right frontal sinuses and the anterior et hmoid sinuses. The remaining paranasal sinuses are clear. The mastoid air cells are well pneumatized. Calvarium: Unremarkable. Cervical cord: Partially visualized cervical spinal cord is normal in morphology and signal intensity . IMPRESSION: No acute intracranial abnormality. Electronically signed by: Volodymyr Roldan M.D. 12/16/2018 12:19 PM
--- NOTE | 2018-12-16 12:39 | Magnetic Resonance Report ---
MRI OF THE CERVICAL SPINE WITHOUT IV CONTRAST CLINICAL HISTORY: Cervicalgia. COMPARISON STUDY: CT scan of the cervical spine dated 10/27/2018. MRI of the cervical spine dated 01/2014. TECHNIQUE: MRI of the cervical spine is performed utilizing various T1 and T2-weighted sequences in t he axial and sagittal planes. IV contrast was not administered for this examination. FINDINGS: Cervical spine: Vertebral body height and alignment are maintained throughout the cervical spine. The re is straightening of the cervical lordosis. The atlantodental articulation is maintained. The spino us processes are intact as imaged. Mild endplate edema is noted at C4-C5. Chronic degenerative endpla te change is seen at C5-C6 and C6-C7. Small anterior osteophytes are noted throughout. No destructive bony lesion is seen. Intervertebral discs: Degenerative disc desiccation is noted of the cervical spine. Mild to moderate loss of height is seen from C4-C5 through C6-C7. Spinal cord: The cervical spinal cord is normal in morphology and signal intensity. C2-C3: Mild facet arthropathy is of no consequence. The central canal and neural foramina are patent. C3-C4: A posterior disc osteophyte complex minimally effaces the ventral subarachnoid space. Uncovert ebral and facet arthropathy cause mild to moderate left-sided neural foraminal stenosis. C4-C5: A posterior disc osteophyte complex abuts the ventral cord. Uncovertebral and facet arthropath y cause moderate right and mild left neural foraminal stenosis. C5-C6: A posterior disc osteophyte complex minimally effaces the ventral cord. Uncovertebral and face t arthropathy cause severe left and moderate to severe right neural foraminal stenosis. C6-C7: A posterior disc osteophyte complex effaces the ventral cord. The minimum AP canal diameter me asures 8.5 mm. Uncovertebral and facet arthropathy cause moderate left greater than right neural fora len stenosis. C7-T1: Unremarkable. Soft tissues: The prevertebral and paraspinous soft tissues are normal as imaged. Brain parenchyma: The visualized brain parenchyma at the skull base is normal in appearance. IMPRESSION: 1. Multilevel cervical spondylosis as above, greatest at C5-C6 and C6-C7. See discussion for detailed level by level analysis. 2. The cervical spinal cord is normal in morphology and signal intensity. 3. Degenerative disc disease and degenerative endplate change as above. Dictated: 12/16/2018 12:11 PM Transcribed: 12/16/2018 12:39 PM Deja [id number] [email or web address] Electronically signed by: Volodymyr Roldan M.D. 12/16/2018 12:41 PM
--- NOTE | 2018-12-16 14:08 | Consultation Report ---
DATE OF CONSULTATION: 12/16/2018 REASON FOR CONSULTATION: Possible stroke. HISTORY OF PRESENT ILLNESS: The patient is a 68-year-old right-handed female with a history of a pulmonary embolus for which she is on Coumadin, lupus and COPD. The patient was in her usual state of health yesterday, having gone grocery shopping. She attempted to get out of her car and she had severe right flank pain. She lowered herself to the ground and having done so, found that she was weak and relatively anesthetic on the left. The flank pain persisted until early this morning. Neurologic symptoms have persisted as well. She has chronic headaches and this was accompanied by a left hemicranial headache. Her vision seemed cloudy, although she does not commit to diplopia or field cut. Unclear to me whether or not there was any adrienne vertigo. There has been no difficulty with speech or swallowing. She has otherwise been well with the exception of having 2 weeks of left neck pain, which for the most part has been nonradiating. She had lost 38 pounds in the last 2 months, which she attributes to her recent diagnosis of lupus. PAST MEDICAL HISTORY: As above. Additionally, migraine, lupus anticoagulant positive, depression and anxiety, tobacco use disorder. No history of rheumatic fever, murmur, prior stroke, or DE. PAST SURGICAL HISTORY: Colonoscopy, EGD, sinus surgery, partial hysterectomy, blepharoplasty, bilateral shoulder arthroscopy, bilateral cataracts and sinus surgery. MEDICATIONS AT HOME: Calcium, Coumadin, Lexapro, albuterol. The patient was supposed to be taking aspirin but did not do so regularly. FAMILY HISTORY: Sister had stroke in her 70s, as well had a PE. SOCIAL HISTORY: Smokes, does not drink alcohol. Lives with spouse. DIAGNOSTICS: White count, H and H, and platelet count are unremarkable. INR on admission 2.1. Chemistry profile; albumin 3.2, otherwise normal. Beta 2 glycoprotein appears to be negative. Anticardiolipin antibody negative. Hypercoagulable state workup pending. CT of the head, noncontrast, no acute intracranial findings. MRI C and brain are pending. CTA head and neck unremarkable. Electrocardiogram, sinus rhythm. PHYSICAL EXAMINATION: VITAL SIGNS: 116/73, 69, 18, 37, 96%. GENERAL: The patient is awake and alert. There is normal speech and language. No right/left confusion. NECK: There are no carotid bruits. HEART: No heart murmurs. Heart is regular rate and rhythm. Radial and dorsalis pedis pulses are intact. EXTREMITIES: No calf swelling or tenderness is noted. MUSCULOSKELETAL: No spinal tenderness is noted. No flank tenderness is noted. NEUROLOGIC: Pupils are equal, postsurgical. Optic nerves are grossly normal. There is normal barron and motility. There is decreased left facial sensation to light touch. Normal facial symmetry. Speech is normal. Tongue is midline. Motor: Mild weakness of the left arm and left leg approximately 4/5 with minimal drift and decreased left rapid alternating movements. She is mildly clumsy on left [id number] and there is some mild dysdiadochokinesia. There is left hemianesthesia to light touch and temperature. Reflexes are increased on the left. Gait was not tested. IMPRESSION: Probable lacunar infarction. PLAN: 1. We would add antiplatelet therapy with aspirin 81 mg. 2. Recommend echo with bubble study. 3. MRI brain, telemetric monitoring, assessment of lipid status. 4. Smoking cessation. 5. The relationship to her flank pain is unclear. I would recommend checking a urinalysis. We will follow with you. NAZ
[2018-12-16 14:31] LABS: Appearance Urine Clear (Clear); Bilirubin Urine Negative (Negative); Color Urine Yellow; Glucose Urine UA Negative (Negative); Ketones Urine Negative (Negative); Leukocyte Esterase Urine Negative (Negative); Nitrite Urine Negative (Negative); Protein Urine Negative (Negative); Specific Gravity Urine 1.012 (1.000-1.030); Urobilinogen Urine Negative (Negative)
[2018-12-16] MEDS ORDERED: WARFARIN SOD 7.5 MG TAB PO SCH (16:00)
--- NOTE | 2018-12-16 17:27 | Hospitalist Progress Note ---
Date of Service December 16, 2018 Assessment & Plan (1) TIA (transient ischemic attack): Presented with transient right-sided weakness, Symptom resolved since admission MRI of brain negative for acute CVA, Patient is on chronic anticoagulation with Coumadin for prior history of PE/positive lupus anti-coagulant Appreciate input from neurology Recommended addition of aspirin 81 mg daily Addition of statin Echo shows no evidence of cardiac thrombus, no arrhythmia noted on telemetry, stable to be transferred to medical floor Present on Admission?: Yes (2) Pulmonary embolism on right: Recently diagnosed in the last admission, patient is continued with Coumadin, INR therapeutic (3) Chronic anticoagulation: On Coumadin due above, INR therapeutic (4) Lupus anticoagulant positive: Noted on hypercoagulable work-up Patient is on Coumadin, will need to be on Coumadin for long-term Will benefit with outpatient rheumatology referral Patient denies of any joint pain (5) Neck pain on left side: Has been a chronic issue, last admission on 08/2018, had similar left- sided neck pain CT of cervical spine showed DJD, no significant spinal stenosis CT of neck shows no evidence of vertebral artery dissection, no stenosis Possible musculoskeletal origin Patient was discharged on as needed p.o. Flexeril on 08/2018 Patient reports improvement of neck pain afterwards, ran out of refills Ordered Flexeril 10 mg p.o. scheduled for this admission, will continue to monitor improvement of symptom (6) Acute right flank pain: Possible secondary to muscle spasm No pain or discomfort at present No GI or urinary symptoms CT abdomen pelvis shows no evidence of ureteric stone, no intra-abdominal pathology UA essentially negative Ordered Flexeril for possible muscle spasm Will follow (7) Full code status: DVT prophylaxis: On Coumadin INR therapeutic Disposition: Lives at home independent in ADLs, Plan to discharge home today if patient remains clinically stable: Improvement of neck pain, no recurrent symptoms of left-sided weakness, right flank pain Subjective Complains of left-sided neck pain, feels like a spasm, no weakness or paresthesia in the left arm or lower extremity, symptom has resolved since admission No headache no blurred vision, no dysarthria or dysphasia Patient is ambulating independently, MRI of brain negative for acute CVA Followed by neurology Dr. Yang earlier today possible TIA Physical Exam Constitutional: WD/WN, vitals as above no acute distress Eyes: PERRL, conjunctivae normal, anicteric sclerae ENMT: external ear and nose normal, oropharynx normal Neck: trachea midline, no thyromegaly Respiratory: normal respiratory effort, lungs clear to auscultation Cardiovascular: RRR, no murmur, no edema Gastrointestinal (Abdomen): normal bowel sounds, soft, nontender, no hepatosplenomegaly Musculoskeletal: no cyanosis or clubbing, extremities motor strength 5/5 Skin: no rashes, warm and dry Neurologic: PERRL, EOMI, accommodation nl, no face palsy, no dysarthria Psychiatric: A+Ox3, euthymic affect Results & Data Vital Signs (Past 12 Hours) Vital Signs Temp Pulse Pulse Resp BP Pulse Ox 12/16/18 15:22 36.6 C 67 21 128/74 98 12/16/18 14:55 68 12/16/18 12:46 36.5 C 69 17 145/72 H 96 12/16/18 07:24 69 12/16/18 07:19 37 C 97 H 18 116/73 96 12/16/18 06:58 37.1 C 74 18 129/72 95
[2018-12-16] MEDS: CYCLOBENZAPRINE HCL 10 MG TAB PO SCH (23:55)
[2018-12-17 06:32] LABS: Estimated Average Glucose 117 mg/dl
[2018-12-17 07:30] LABS: Basophils # (auto) 0.02 K/uL (0-0.2); Basophils % (auto) 0.2 %; Eosinophils # (auto) 0.07 K/uL (0-0.5); Eosinophils % (auto) 0.8 %; Hematocrit (blood only) 37.5 % (37-47); Hemoglobin 12.7 g/dL (12.0-16.0); Immature Granulocytes # (auto) 0.01 K/uL (0.00-0.02); Immature Granulocytes % (auto) 0.1 %; Lymphocytes # (auto) 3.39 K/uL (1.2-3.4); Mean Corpuscular Hgb Conc 33.9 g/dL (32-36); Mean Corpuscular Volume 92.6 fL (80-100); Monocytes # (auto) 0.46 K/uL (0.11-0.59); Monocytes % (auto) 5.6 %; Neutrophils # (auto) 4.31 K/uL (1.4-6.5); Neutrophils % (auto) 52.3 %; Platelet Count 227 K/uL (130-400); RDW Coefficient of Variation 13.3 % (11.5-14.5); RDW Standard Deviation 45.3 fL (36.4-46.3); Red Blood Count 4.05 M/uL (4.2-5.4); White Blood Count 8.26 K/uL (4.8-10.8)
[2018-12-17 07:43] LABS: Prothrombin Time 19.8 Seconds (9.0-12.0)
[2018-12-17 08:02] LABS: BUN Creatinine Ratio 20.6 (10-20); Calcium 8.5 mg/dl (8.5-10.1); Creatinine Clr Calc Pharmacy 79.3 ml/min; Est GFR (African American) 108.9; Est GFR (Non-African American) 93.9; Potassium 3.8 mmol/L (3.5-5.1)
[2018-12-17] MEDS: ASPIRIN 81 MG ECTAB PO SCH (08:43)
[2018-12-17] MEDS: ATORVASTATIN 40 MG TAB PO SCH (08:43)
[2018-12-17] MEDS: CYCLOBENZAPRINE HCL 10 MG TAB PO SCH ×2 (08:43→14:10)
[2018-12-17] MEDS: CHOLECALCIFEROL 1,000 UNITS TAB PO SCH (08:43)
[2018-12-17] MEDS: DOCUSATE SODIUM 100 MG CAP PO SCH (08:44)
[2018-12-17] MEDS: CALCIUM 600MG + VIT D 400 IU TAB PO SCH (08:44)
[2018-12-17] MEDS ORDERED: STROKE PATIENT DISCHARGE STA (13:24)
--- NOTE | 2018-12-17 14:27 | Pharmacy Report ---
Pharmacist Stroke Counseling - Date of Service December 17, 2018 - Scope: Pharmacy has been consulted to provide medication discharge counseling for this patient admitted with transient ischemic attack as per the Pharmacist Discharge Counseling for Stroke Patients Protocol. - Medications on Discharge: Home Medications Medication Instructions Recorded Confirmed albuterol sulfate [Ventolin HFA] 2 puff INHALATION Q6H PRN 09/09/18 12/15/18 docusate sodium [Colace] 100 mg PO QAM 09/09/18 12/15/18 fluticasone propion-salmeterol 1 inh INHALATION Q12H PRN 09/09/18 12/15/18 [Advair Diskus] acetaminophen [Tylenol] 325 mg PO Q6H PRN 10/27/18 12/15/18 calcium carbonate [Calcium 600] 600 mg PO QAM 12/15/18 12/15/18 cholecalciferol (vitamin D3) 1,000 unit PO DAILY 12/15/18 12/15/18 omeprazole 20 mg PO DAILY PRN 12/15/18 12/15/18 warfarin 5 mg PO 5XWK 12/15/18 12/15/18 warfarin 7.5 mg PO 2XWK 12/15/18 12/15/18 Ativan 0.5 mg PO HS PRN 12/16/18 12/16/18 escitalopram oxalate 10 mg PO DAILY 12/16/18 12/16/18 New Rx's Medication Instructions Recorded aspirin [Ecotrin Low Strength] 81 mg PO QAM 30 Days #30 tab 12/17/18 atorvastatin 40 mg PO QAM 30 Days #30 tab 12/17/18 cyclobenzaprine 10 mg PO TID #90 tab 12/17/18 cyclobenzaprine 10 mg PO TID #90 tab 12/17/18 - Action: The above medications, specifically ones for stroke treatment/prophylaxis, have been reviewed in detail with the patient and/or patient chemical sales representative(s) prior to discharge. This includes indication, common adverse reactions, drug interactions, and medication administration. Medication counseling has been employed using the teach-back method to ensure understanding. - Outcome: The patient and/or patient chemical sales representative(s) have demonstrated understanding of the medications. Please note, they are aware that the pharmacist will call them within 72 hours post-discharge to confirm that the appropriate medications are being taken and answer any further medication related questions the patient might have at that time. Contact information Individual to be contacted: Carmen Relationship to patient (if applicable): self Phone number: [phone] Best time to call: not specified - she did make a point that she screens her calls, so please leave a message on her machine and she will call right back. Additional comments: New medications were ASA 81mg and Lipitor 40mg. She works with Luis Woods at the [facility] for her Coumadin dosing. Confirmed that she will be following up with him. Thank you for allowing pharmacy to be involved in the care of this patient. Please call [phone] or [phone] with any additional questions
--- NOTE | 2018-12-17 14:47 | Discharge Summary ---
Date of Service December 17, 2018 Principal Diagnosis TIA/HISTORY OF PE ON COUMADIN/LUPUS ANTICOAGULANT POSITIVE Discharge Exam Constitutional WD/WN, vitals as above no acute distress Eyes PERRL, conjunctivae normal, anicteric sclerae ENMT external ear and nose normal, oropharynx normal Neck trachea midline, no thyromegaly Respiratory normal respiratory effort, lungs clear to auscultation Cardiovascular RRR, no murmur, no edema Gastrointestinal (Abdomen) normal bowel sounds, soft, nontender, no hepatosplenomegaly Musculoskeletal no cyanosis or clubbing, extremities motor strength 5/5 Skin no rashes, warm and dry Neurologic PERRL, EOMI, accommodation nl, no face palsy, no dysarthria Psychiatric A+Ox3, euthymic affect Discharge Data Allergies Allergy/AdvReac Type Severity Reaction Status Date / Time Iodinated Contrast- Oral and Allergy Intermediate HIVES Verified 12/15/18 22:53 IV Dye Consultations 12/15/18 22:55 ED Decision to Admit Stat 12/16/18 01:09 Consult Case Management - Discharge Planning Routine Consult Case Management - Discharge Planning Routine 12/16/18 08:00 Consult Neurology Routine 12/17/18 10:33 Consult Patient Rep / Service Excellence [Consult Patient Services] Routine Ordered Studies 12/15/18 20:52 CT head/brain wo con Stat 12/15/18 21:27 CT angio head w con Stat CT angio neck with con Stat 12/15/18 21:28 CT abd pelvis IV con only Stat 12/16/18 01:09 MR brain wo/w con Urgent MR cervical spine wo con Urgent Hospital Course (1) TIA (transient ischemic attack): Presented with transient right-sided weakness, Symptom resolved since admission MRI of brain negative for acute CVA, Patient is on chronic anticoagulation with Coumadin for prior history of PE/positive lupus anti-coagulant Appreciate input from neurology Recommended addition of aspirin 81 mg daily Addition of statin Echo shows no evidence of cardiac thrombus, no arrhythmia noted on telemetry, stable to be transferred to medical floor Patient is ambulating independently, no dizzy spell, no weakness of extremities, no headache, neck pain has resolved after starting on Flexeril, no further right flank pain, stable to be discharged home today Patient will be discharged on aspirin 81 mg daily Added Lipitor 40 mg daily Counseling provided to avoid Advil Motrin Aleve, other NSAIDs Hospital follow-up arranged with Dr. Nichole at [facility] on 12/19/2018 at 1:45 PM (2) Pulmonary embolism on right: Recently diagnosed in the last admission, patient is continued with Coumadin, INR therapeutic No complaint of chest pain, shortness of breath, no dyspnea on exertion, no hypoxia, normal saturation in room air, (3) Chronic anticoagulation: On Coumadin due above, INR therapeutic (4) Lupus anticoagulant positive: Noted on hypercoagulable work-up Patient is on Coumadin, will need to be on Coumadin for long-term Will benefit with outpatient rheumatology referral Patient denies of any joint pain (5) Neck pain on left side: Has been a chronic issue, last admission on 08/2018, had similar left- sided neck pain CT of cervical spine showed DJD, no significant spinal stenosis CT of neck shows no evidence of vertebral artery dissection, no stenosis Possible musculoskeletal origin Patient was discharged on as needed p.o. Flexeril on 08/2018 Patient reports improvement of neck pain afterwards, ran out of refills Ordered Flexeril 10 mg p.o. scheduled -neck pain has resolved overnight, The patient denies of feeling any increased sedation or dizzy spell for scheduled dose of Flexeril Patient is asked to take scheduled dose 3 times daily Flexeril for at least 3 to 4 weeks, then can be used as needed, Can utilize heating pad or cold compression (6) Acute right flank pain: No pain or discomfort since admission Possible secondary to muscle spasm No GI or urinary symptoms CT abdomen pelvis shows no evidence of ureteric stone, no intra-abdominal pathology UA essentially negative Patient is asked to continue to take Flexeril for muscle spasm (7) Full code status: DVT prophylaxis: On Coumadin INR therapeutic Disposition: Lives at home independent in ADLs, stable to be discharged home today Total Time Total Time Spent Total Time Spent (In Minutes): APPROX 45 MINS Total Time Includes: Examination of the Patient, Discharge Planning and Medicat ion Reconciliation Discharge Plan Discharge Items Patient Disposition: Home - Self-Care Reason For Visit: STROKE-LIKE SX Discharge Diagnosis: STROKE LIKE SYMPTOMS /TIA Discharge Goals: Decrease discomfort Activity: Resume your previous activity Non-emergency contact: Primary Care Provider Call non-emergency contact if: you have any medication questions Follow-up/Referrals: Jerald Goldsmith MD [Physician] - Brett Nichole MD [Primary Care Provider] - 12/19/18 1:45 pm Diet: Heart Healthy Add Provider Instructions: HOSPITAL FOLLOW UP WITH DR NICHOLE ON Monday12/19/2018 @ 1: 45PM PLEASE HAVE REFERRAL TO RHEUMATOLOGY FOR FURTHER EVALUATION OF LUPUS ( LUPUS ANTICOAGULANT NOTED IN HYPERCOAGULABLE WORK UP ) TAKE ASPIRIN AFTER MEAL DO NOT TAKE ADVIL, ALEVE , MOTRIN , NARPOXEN , IBUPROPHEN Risk Factors for Stroke: You can reduce your chances of stroke by working with your medical provider to adopt a healthy lifestyle. Some specific ways to lower your chance of stroke are: * If you are a smoker, now is the time to stop smoking cigarettes * If you are diabetic, improve the control of your blood sugars * Avoid excessive amounts of alcohol * Control high blood pressure * Lose weight if you are overweight * Be sure to lead an active lifestyle * Eat a healthy diet low in salt, cholesterol and fat You should know about other risk factors for stroke that you are unable to control. These include: * Age 55 years or older * Male gender * Certain racial groups: , or / * Family History of Stroke, Mini stroke or Heart Attack * Sickle Cell Disease Follow Up: It is important for you to keep your follow up appointments with your medical provider. Who to Call and When: Medical Emergencies: Call 911 immediately if you experience any of the following warning signs and symptoms of Stroke: * Sudden numbness or weakness of the face, arm or leg, especially on one side of the body * Sudden confusion, trouble speaking or understanding * Sudden trouble seeing in one or both eyes * Sudden trouble walking, dizziness, loss of balance or coordination * Sudden severe headache with no cause Do not delay calling 911 if you experience any warning signs or symptoms of a stroke. Delay in seeking medical attention may affect what treatments can be given to you. . Prescriptions: New cyclobenzaprine 10 mg Tablet 10 mg PO TID Qty: 90 RF: 4 atorvastatin 40 mg Tablet 40 mg PO QAM 30 Days Qty: 30 RF: 3 aspirin [Ecotrin Low Strength] 81 mg Tablet,Delayed Release (Dr/Ec) 81 mg PO QAM 30 Days Qty: 30 RF: 4 Continued acetaminophen [Tylenol] 325 mg Tablet 325 mg PO Q6H PRN (Reason: Pain) RF: 0 calcium carbonate [Calcium 600] 600 mg calcium (1,500 mg) Tablet 600 mg PO QAM RF: 0 cholecalciferol (vitamin D3) 1,000 unit Tablet 1,000 unit PO DAILY RF: 0 omeprazole 20 mg capsule,delayed release(DR/EC) 20 mg PO DAILY PRN (Reason: Gi Upset) RF: 0 warfarin 5 mg tablet 5 mg PO 5XWK RF: 0 warfarin 5 mg tablet 7.5 mg PO 2XWK RF: 0 Ativan 0.5 mg 0.5 mg PO HS PRN (Reason: Insomnia) RF: 0 escitalopram oxalate 10 mg tablet 10 mg PO DAILY RF: 0 fluticasone propion-salmeterol [Advair Diskus] 250-50 mcg/dose Blister With Device 1 inh INHALATION Q12H PRN (Reason: Shortness Of Breath Or Wheezing) RF: 0 docusate sodium [Colace] 100 mg Capsule 100 mg PO QAM RF: 0 albuterol sulfate [Ventolin HFA] 90 mcg/actuation Hfa Aerosol Inhaler 2 puff INHALATION Q6H PRN (Reason: Shortness Of Breath) RF: 0 Changed cyclobenzaprine 10 mg Tablet 10 mg PO TID Qty: 90 RF: 4 Stand-Alone Forms: Medications to Prevent Stroke, [facility] Discharge Orders: Discharge Order (Routine); Ordered 12/17/18 Ordered By: Marisela Luis Admission Data Admit Date/Time: 12/16/18 00:01 Attending Provider: Marisela Luis Admit Provider: Robert Bernal Primary Care Provider: Brett Nichole. Other Providers: Robert Bernal ; Vy Dillard ; Brett Brady ; Vy Del Castillo ; Karen Streeter ; Sandeep Harden Service: Medical Other Interventions: Discharge Summary Assessment (RN) Last Done: 12/17/18 14:06 DC Date/Time DO NOT enter until pt leaves facility: 12/17/18 14:15
[2018-12-17] MEDS ORDERED: WARFARIN SOD 5 MG TAB PO SCH (16:00)
--- NOTE | 2018-12-20 15:41 | Pharmacy Report ---
Pharmacist Post D/C Phone Note - Phone Note: Date of phone call: December 20, 2018. Individual with whom pharmacist spoke to: GONZALES AMAYA The following questions were reviewed during the phone call with responses listed below each: Can you tell me the medications that you are currently taking as well as when and how you take each medication? -See Table Below When have you missed any doses of your medications? - None What side effects are you having from your medications, specifically, the new medications you were started on? - None What questions do you have about your medications? - None What problems are you having obtaining your medications? - None When is your next appointment with your primary care doctor? - Saw Dr Pizarro yesterday 12/19. Additional comments: - Patient was getting INR right now and waiting to hear back from [facility] for dosing. - Patient started taking Aspirin and Atorvastatin as ordered As per the Pharmacist Discharge Counseling for Stroke Patients Protocol, this phone call has been completed within 72 hours of discharge. Thank you for allowing us to be involved in the care of this patient. - Home Medications: Home Medications Medication Instructions Recorded Confirmed albuterol sulfate [Ventolin HFA] 2 puff INHALATION Q6H PRN 09/09/18 12/15/18 docusate sodium [Colace] 100 mg PO QAM 09/09/18 12/15/18 fluticasone propion-salmeterol 1 inh INHALATION Q12H PRN 09/09/18 12/15/18 [Advair Diskus] acetaminophen [Tylenol] 325 mg PO Q6H PRN 10/27/18 12/15/18 calcium carbonate [Calcium 600] 600 mg PO QAM 12/15/18 12/15/18 cholecalciferol (vitamin D3) 1,000 unit PO DAILY 12/15/18 12/15/18 omeprazole 20 mg PO DAILY PRN 12/15/18 12/15/18 warfarin 5 mg PO 5XWK 12/15/18 12/15/18 warfarin 7.5 mg PO 2XWK 12/15/18 12/15/18 Ativan 0.5 mg PO HS PRN 12/16/18 12/16/18 escitalopram oxalate 10 mg PO DAILY 12/16/18 12/16/18 New Rx's Medication Instructions Recorded aspirin [Ecotrin Low Strength] 81 mg PO QAM 30 Days #30 tab 12/17/18 atorvastatin 40 mg PO QAM 30 Days #30 tab 12/17/18 cyclobenzaprine 10 mg PO TID #90 tab 12/17/18 cyclobenzaprine 10 mg PO TID #90 tab 12/17/18
== END 2018-12-17 14:15 | disposition home or self-care (01) ==
LOC: ED 21:06 → INTOOBSV 12-16 00:01 → 2S 12-16 00:01 → 4E 12-16 19:17

== ENCOUNTER 2022-01-13 10:23 | Inpatient (IN) ==
[2022-01-13] MEDS ORDERED: SODIUM CHLORIDE 0.9% 1000ML 1,000 ML IV STA (11:03)
[2022-01-13] MEDS ORDERED: SODIUM CHLORIDE 0.9% 1000ML 500 ML IV ONE (11:03)
[2022-01-13] MEDS ORDERED: ONDANSETRON INJ 2 MG/ML 2 ML VIAL IV STA (11:03)
[2022-01-13] MEDS ORDERED: HYDROmorphone INJ 0.5 MG/0.5 ML SYR IV PRN ×2 (11:14→18:45)
[2022-01-13 11:26] LABS: INR 1.9 (0.9-1.1); Prothrombin Time 19.2 Seconds (9.0-12.0)
[2022-01-13 11:41] LABS: Albumin Globulin Ratio 1.5 (0.9-2); BUN Creatinine Ratio 19.7 (10-20); Bilirubin,Total 0.5 mg/dl (0.2-1.0); Creatinine Clr Calc Pharmacy 70.2 ml/min; Est GFR (African American) 101.6 ml/min; Est GFR (Non-African American) 87.6 ml/min; Globulin 2.6 gm/dl (2.5-4.0); Total Protein 6.6 gm/dl (6.0-8.3)
[2022-01-13 11:45] LABS: Basophils # (auto) 0.01 K/uL (0-0.2); Basophils % (auto) 0.1 %; Eosinophils # (auto) 0.02 K/uL (0-0.5); Eosinophils % (auto) 0.2 %; Hemoglobin 12.8 g/dL (12.0-16.0); Immature Granulocytes # (auto) 0.01 K/uL (0.00-0.02); Immature Granulocytes % (auto) 0.1 %; Lymphocytes # (auto) 2.33 K/uL (1.2-3.4); Lymphocytes % (auto) 28.8 %; Mean Corpuscular Hemoglobin 31.4 pg (25-34); Mean Corpuscular Volume 98.3 fL (80-100); Mean Platelet Volume 9.4 fL (7.4-10.4); Monocytes # (auto) 0.48 K/uL (0.11-0.59); Monocytes % (auto) 5.9 %; Neutrophils # (auto) 5.25 K/uL (1.4-6.5); Neutrophils % (auto) 64.9 %; Platelet Count 248 K/uL (130-400); RDW Coefficient of Variation 13.5 % (11.5-14.5); RDW Standard Deviation 48.8 fL (36.4-46.3); Red Blood Count 4.07 M/uL (4.2-5.4)
--- NOTE | 2022-01-13 11:59 | Emergency Department Note ---
Impression & Plan Bilateral flank pain, Nausea & vomiting ED Provider Note INFORMANT: Patient ED PROVIDER(S): Brett Wilkins MD CHIEF COMPLAINT: flank pain, vomiting PLAN: Disposition: admitted Condition: Good Outpatient prescription management: none Referral: none MEDICAL DECISION MAKING: Patient returned due to continued vomiting and expanding flank pain. CBC and chemistry panel unremarkable. Treated with dilaudid and zofran. CT imaging negative. Patient hydrated. Not tolerating PO intake. Exact etiology not obvious at this time. Will need admission. Consultation with [facility] hospitalist do ne. Patient seen and admitted. Triage Nursing notes reviewed and agree them. Vital Signs: reviewed and remarkable for no significant abnormalities Differential diagnosis: Renal colic, UTI, appendicitis, diverticulitis, mesenteric ischemia, aortic pathology, infections, inflammatory bowel disease, PUD, biliary pathology, as well as other pathologies. Diagnostics interpreted by me: Cardiac Monitoring: Cardiac monitoring ordered by me: The patient was placed on continuous cardiac monitoring and observed. It revealed a normal sinus rhythm at 80 beats per minute without ectopy or evidence of dysrhythmia. Imaging studies: Ct as noted below. HPI: The patient is a 71year old female who presents to the Emergency Room with complaints of bilateral flank pain. This started several days ago and is worsening. She has no suprapubic abdominal pain. The patient was seen in the emergency department on 01/11 and noted left flank pain at that time. She had a CT performed and there was concerning for left kidney inflammation. She had nausea and vomiting. The provider was concerned that she had pyelonephritis and patient was placed on Zofran, Oxy IR, and Omnicef. Unfortunate because of the nausea and vomiting she has not been able to keep that his medications down. She was given IV Rocephin and he recommended admission. Patient declined. The patient has found no relieving factors. Current pain is rated as 8/10. Pt denies LOC, headache, fevers, chills, diaphoresis, visual changes, neck pain, chest pain, breathing difficulties, melena, hematochezia, urinary symptoms, numbness, weakness, lymphadenopathy, rash, or other complaints. ROS: See above HPI for pertinent positives & negatives. A total of 10 systems reviewed and were otherwise negative. PAST MEDICAL HISTORY:See Below , COPD PAST SURGICAL HISTORY:See Below, FAMILY HISTORY:See Below SOCIAL HISTORY:See Below, smoker HOME MEDICATIONS:See Below ALLERGIES:See Below VITALS:See Below PHYSICAL EXAMINATION: GENERAL: Awake, alert, uncomfortable-appearing, in no distress HENT: Normocephalic, atraumatic. Oropharynx unremarkable. EYES: Normal conjunctiva. Sclera non-icteric. NECK: Inspection normal. Non-tender. Supple. No nuchal rigidity. FROM. No masses. RESPIRATORY: Clear to auscultation. No wheezes. No rales. Normal respiratory effort. CARDIAC: Normal rate. Normal rhythm. No murmurs. No rubs. Extremities warm and well perfused. Pulses equal. No JVD. GI: Soft, non-distended. Suprapubic tenderness to palpation. No rebound or guarding. No masses. RECTAL: Deferred. MUSCULOSKELETAL: Atraumatic. Chest examination reveals no tenderness. The back is symmetrical on inspection without obvious abnormality. There is mild bilateral CVA tenderness to palpation. No joint edema. LOWER EXTREMITIES: Calves are equal size bilaterally and non-tender. No edema. No discoloration. NEURO: Normal sensorium. No sensory or motor deficits noted. SKIN: No rash or jaundice noted. Brett Wilkins MD Past Med/Surg History Medical History Chronic anticoagulation warfarin daily COPD (chronic obstructive pulmonary disease) (11/17/13) inhalers prn Emphysema lung Hyperlipidemia Hypertension Lupus Memory loss Migraine Poor historian pt has memory loss and had difficulty remembering health history Pulmonary emboli 2019--on warfarin daily TIA (transient ischemic attack) 2019--on warfarin--no issues now--follows with Dr. Joseph Surgical History History of arthroscopy of left shoulder History of arthroscopy of right shoulder History of bilateral cataract extraction History of sinus surgery History of tooth extraction all upper teeth History of total hysterectomy with bilateral salpingo-oophorectomy (BSO) Family History Other Cancer Heart disease Hypertension No family history of adverse response to anesthesia Social History Smoking Status: Current some day smoker Cigarettes Per Day: 2 cigs every 2-3 wks; Second Hand Exposure: Yes; Do You Dip or Chew Tobacco: No; Hx Alcohol Use: No Hx Substance Use: No Preferred Language: Occitan Communication Ability: Effective 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 Required: No Beliefs That Will Affect Care: None marital status: Current Living Situation: Spouse current occupational status: retired Feels Safe at Home: Yes Assistive Devices: None Allergies Allergies Allergy/AdvReac Type Severity Reaction Status Date / Time Iodinated Contrast Media Allergy Intermediate HIVES Verified 01/13/22 13:04 Home Meds Home Medications Medication Instructions Recorded Confirmed albuterol sulfate 90 mcg/actuation 2 puff INHALATION Q6H PRN 09/09/18 01/13/22 aerosol inhaler (Ventolin HFA) fluticasone 250 mcg-salmeterol 50 1 inh INHALATION Q12H PRN 09/09/18 01/13/22 mcg/dose blistr powdr for inhalation (Advair Diskus) calcium carbonate 600 mg calcium 600 mg PO QAM 12/15/18 01/13/22 (1,500 mg) tablet (Calcium) cholecalciferol (vitamin D3) 25 1,000 unit PO QAM 12/15/18 01/13/22 mcg (1,000 unit) tablet omeprazole 20 mg capsule,delayed 20 mg PO DAILY PRN 12/15/18 01/13/22 release warfarin 5 mg tablet 5 mg PO 4XWK 12/15/18 01/13/22 warfarin 5 mg tablet 7.5 mg PO 3XWK 12/15/18 01/13/22 atorvastatin 40 mg tablet 40 mg PO QAM 04/14/21 01/13/22 duloxetine 60 mg capsule,delayed 60 mg PO HS 04/14/21 01/13/22 release lorazepam 0.5 mg tablet 0.5 mg PO HS PRN 04/14/21 01/13/22 buspirone 5 mg tablet 10 mg PO BID 01/11/22 01/13/22 gabapentin 300 mg capsule 300 mg PO BID 01/11/22 01/13/22 acetaminophen 500 mg tablet 500 mg PO Q6H PRN 01/13/22 01/13/22 (Tylenol Extra Strength) aspirin 81 mg tablet,delayed 81 mg PO DAILY 01/13/22 01/13/22 release Previous Rx's Medication Instructions Recorded cefdinir 300 mg capsule 300 mg PO BID 10 Days #20 cap 01/12/22 ondansetron 4 mg disintegrating 4 - 8 mg PO Q8H PRN #14 tab 01/12/22 tablet oxycodone 5 mg tablet 5 mg PO Q6H PRN #12 tab 01/12/22 Results & Data (ED) Vital Signs Vital Signs - 24 hr 01/13/22 10:43 01/13/22 11:31 Temperature 36.8 C Temperature Source Temporal Artery Scan Pulse Rate 72 Respiratory Rate 18 Blood Pressure 123/67 Blood Pressure Mean 85 Pulse Oximetry 94 Oxygen Delivery Method Room Air Room Air Sepsis Recent Fever Within 48 Hours No Sepsis New/Unexplained Change in Mental Status No Sepsis Action Taken by Nursing No Action Required Laboratory Data Result diagrams: 01/14/22 00:56 01/14/22 00:56 Lab Results 01/13/22 01/13/22 01/13/22 Range/Units 11:00 11:00 11:00 WBC 8.10 (4.8-10.8) K/uL RBC 4.07 L (4.2-5.4) M/uL Hgb 12.8 (12.0-16.0) g/dL Hct 40.0 (37-47) % MCV 98.3 (80-100) fL MCH 31.4 (25-34) pg MCHC 32.0 (32-36) g/dL RDW Std Deviation 48.8 H (36.4-46.3) fL RDW Coeff of Real 13.5 (11.5-14.5) % Plt Count 248 (130-400) K/uL MPV 9.4 (7.4-10.4) fL Immature Gran % (Auto) 0.1 % Neut % (Auto) 64.9 % Lymph % (Auto) 28.8 % [place] % (Auto) 5.9 % Eos % (Auto) 0.2 % Baso % (Auto) 0.1 % Neut # (Auto) 5.25 (1.4-6.5) K/uL Lymph # (Auto) 2.33 (1.2-3.4) K/uL [place] # (Auto) 0.48 (0.11-0.59) K/uL Eos # (Auto) 0.02 (0-0.5) K/uL Baso # (Auto) 0.01 (0-0.2) K/uL Immature Gran # (Auto) 0.01 (0.00-0.02) K/uL PT 19.2 H (9.0-12.0) Seconds INR 1.9 H (0.9-1.1) Sodium 139 (136-145) mmol/L Potassium 4.0 (3.5-5.1) mmol/L Chloride 106 (98-107) mmol/L Carbon Dioxide 28 (21-32) mmol/L Anion Gap 5 (3-11) BUN 13 (6-23) mg/dl Creatinine 0.66 (0.6-1.2) mg/dl Est Cr Clr Drug Dosing 70.2 ml/min Est GFR ( Amer) 101.6 ml/min Est GFR (Non-Af Amer) 87.6 ml/min BUN/Creatinine Ratio 19.7 (10-20) Glucose 88 (70-99(Fasting)) mg/dl Calcium 9.0 (8.5-10.1) mg/dl Total Bilirubin 0.5 (0.2-1.0) mg/dl AST 14 (13-39) U/L ALT 10 (7-52) U/L Alkaline Phosphatase 47 (34-104) U/L Total Protein 6.6 (6.0-8.3) gm/dl Albumin 4.0 (3.4-5.0) gm/dl Globulin 2.6 (2.5-4.0) gm/dl Albumin/Globulin Ratio 1.5 (0.9-2) Lipase 16 (11-82) U/L Urine Color Urine Appearance (Clear) Urine pH (4.5-7.5) Ur Specific [place] (1.000-1.030) Urine Protein (Negative) Urine Glucose (UA) (Negative) Urine Ketones (Negative) Urine Blood (Negative) Urine Nitrite (Negative) Urine Bilirubin (Negative) Urine Urobilinogen (Negative) Ur Leukocyte Esterase (Negative) SARS-CoV-2, RNA, NAAT (NEGATIVE) 01/13/22 01/13/22 Range/Units 11:00 12:07 WBC (4.8-10.8) K/uL RBC (4.2-5.4) M/uL Hgb (12.0-16.0) g/dL Hct (37-47) % MCV (80-100) fL MCH (25-34) pg MCHC (32-36) g/dL RDW Std Deviation (36.4-46.3) fL RDW Coeff of Real (11.5-14.5) % Plt Count (130-400) K/uL MPV (7.4-10.4) fL Immature Gran % (Auto) % Neut % (Auto) % Lymph % (Auto) % [place] % (Auto) % Eos % (Auto) % Baso % (Auto) % Neut # (Auto) (1.4-6.5) K/uL Lymph # (Auto) (1.2-3.4) K/uL [place] # (Auto) (0.11-0.59) K/uL Eos # (Auto) (0-0.5) K/uL Baso # (Auto) (0-0.2) K/uL Immature Gran # (Auto) (0.00-0.02) K/uL PT (9.0-12.0) Seconds INR (0.9-1.1) Sodium (136-145) mmol/L Potassium (3.5-5.1) mmol/L Chloride (98-107) mmol/L Carbon Dioxide (21-32) mmol/L Anion Gap (3-11) BUN (6-23) mg/dl Creatinine (0.6-1.2) mg/dl Est Cr Clr Drug Dosing ml/min Est GFR ( Amer) ml/min Est GFR (Non-Af Amer) ml/min BUN/Creatinine Ratio (10-20) Glucose (70-99(Fasting)) mg/dl Calcium (8.5-10.1) mg/dl Total Bilirubin (0.2-1.0) mg/dl AST (13-39) U/L ALT (7-52) U/L Alkaline Phosphatase (34-104) U/L Total Protein (6.0-8.3) gm/dl Albumin (3.4-5.0) gm/dl Globulin (2.5-4.0) gm/dl Albumin/Globulin Ratio (0.9-2) Lipase (11-82) U/L Urine Color Yellow Urine Appearance Clear (Clear) Urine pH 7.0 (4.5-7.5) Ur Specific [place] 1.008 (1.000-1.030) Urine Protein Negative (Negative) Urine Glucose (UA) Negative (Negative) Urine Ketones Negative (Negative) Urine Blood Negative (Negative) Urine Nitrite Negative (Negative) Urine Bilirubin Negative (Negative) Urine Urobilinogen Negative (Negative) Ur Leukocyte Esterase Negative (Negative) SARS-CoV-2, RNA, NAAT NEGATIVE (NEGATIVE) Administered Medications Acetaminophen (Acetaminophen 325 Mg Tab) 650 mg PO QID [facility] Stop: 02/12/22 16:59 Last Admin: 01/14/22 12:39 Dose: Not Given Documented by: [id number] Admin: 01/14/22 10:04 Dose: Not Given Documented by: [id number] Admin: 01/13/22 20:55 Dose: 650 mg Documented by: [id number] Admin: 01/13/22 16:59 Dose: 650 mg Documented by: [id number] Aspirin (Aspirin 81 Mg Ectab) 81 mg PO DAILY [facility] Stop: 02/13/22 08:59 Last Admin: 01/14/22 09:47 Dose: 81 mg Documented by: [id number] Atorvastatin Calcium (Atorvastatin 40 Mg Tab) 40 mg PO QAM [facility] Stop: 02/13/22 08:59 Last Admin: 01/14/22 09:47 Dose: 40 mg Documented by: [id number] Buspirone HCl (Buspirone 5 Mg Tab) 10 mg PO BID [facility] Stop: 02/12/22 20:59 Last Admin: 01/14/22 09:46 Dose: 10 mg Documented by: [id number] Admin: 01/13/22 20:55 Dose: 10 mg Documented by: [id number] Calcium Carbonate (Calcium Carbonate 1250mg Tab) 1,250 mg PO QAM [facility] Stop: 02/13/22 08:59 Last Admin: 01/14/22 09:47 Dose: 1,250 mg Documented by: [id number] Duloxetine HCl (Duloxetine Hcl 60 Mg Cap) 60 mg PO HS [facility] Stop: 02/12/22 20:59 Last Admin: 01/13/22 20:55 Dose: 60 mg Documented by: [id number] Fluticasone/Vilanterol (Fluticasone/Vilanterol 100/25mcg 14 Puffs/Inhaler) 1 puffs INH DAILY [facility]; Protocol Stop: 02/13/22 08:59 Last Admin: 01/14/22 09:47 Dose: 1 puffs Documented by: [id number] Gabapentin (Gabapentin 300 Mg Cap) 300 mg PO BID [facility] Stop: 02/12/22 20:59 Last Admin: 01/14/22 09:45 Dose: 300 mg Documented by: [id number] Admin: 01/13/22 20:56 Dose: 300 mg Documented by: [id number] Ceftriaxone Sodium 1,000 mg/ (Dextrose) 60 mls @ 100 mls/hr IV Q24H [facility]; Protocol Stop: 01/18/22 15:59 Last Infusion: 01/14/22 17:03 Dose: 0 mls/hr Documented by: [id number] Admin: 01/14/22 16:23 Dose: 100 mls/hr Documented by: [id number] Infusion: 01/13/22 17:59 Dose: 0 mls/hr Documented by: [id number] Admin: 01/13/22 16:57 Dose: 100 mls/hr Documented by: [id number] Doxycycline Hyclate 100 mg/ (Dextrose) 110 mls @ 50 mls/hr IV Q12H [facility] Stop: 01/20/22 16:59 Last Infusion: 01/14/22 07:55 Dose: 0 mls/hr Documented by: [id number] Admin: 01/14/22 05:38 Dose: 50 mls/hr Documented by: [id number] Infusion: 01/13/22 19:09 Dose: 0 mls/hr Documented by: [id number] Admin: 01/13/22 16:57 Dose: 50 mls/hr Documented by: [id number] Amiodarone HCl/Dextrose (Nexterone / D5w) 360 mg in 200 mls @ 33.333 mls/hr IV ONE ONE Stop: 01/14/22 17:29 Last Admin: 01/14/22 11:49 Dose: 33.3 mls/hr Documented by: [id number] Cosigned by: [id number] Lidocaine (Lidocaine 5% 1 Patch) 1 patch TD HS [facility] Stop: 02/12/22 20:59 Last Admin: 01/14/22 09:48 Dose: 1 patch Documented by: [id number] Admin: 01/13/22 20:56 Dose: 1 patch Documented by: [id number] Melatonin (Melatonin 3 Mg Tab) 3 mg PO HS PRN PRN Reason: Sleep Stop: 02/13/22 03:03 Last Admin: 01/14/22 03:17 Dose: 3 mg Documented by: [id number] Metoprolol Tartrate (Metoprolol Tartrate 25 Mg Tab) 25 mg PO BID [facility] Stop: 02/13/22 08:59 Last Admin: 01/14/22 09:44 Dose: 25 mg Documented by: [id number] Miscellaneous (Remove Lidoderm Patch) 1 ea N/A DAILY@0900 [facility] Stop: 02/12/22 20:59 Last Admin: 01/14/22 09:48 Dose: 1 ea Documented by: [id number] Ondansetron HCl (Ondansetron Inj 2 Mg/Ml 2 Ml Vial) 4 mg IV Q6H PRN PRN Reason: Nausea Stop: 02/12/22 15:49 Last Admin: 01/13/22 17:06 Dose: 4 mg Documented by: [id number] Oxycodone HCl (Oxycodone Hcl Ir 5 Mg Tab (Immediate Release)) 5 mg PO Q6H PRN PRN Reason: severe pain Stop: 01/27/22 15:49 Last Admin: 01/14/22 00:53 Dose: 5 mg Documented by: [id number] Admin: 01/13/22 16:56 Dose: 5 mg Documented by: [id number] Prednisone (Prednisone 20 Mg Tab) 40 mg PO DAILY [facility] Stop: 01/18/22 15:49 Last Admin: 01/14/22 09:45 Dose: 40 mg Documented by: [id number] Admin: 01/13/22 16:57 Dose: 40 mg Documented by: [id number] Vitamin D (Cholecalciferol 1,000 Units 25 Mcg Tab) 1,000 units PO QAM [facility] Stop: 02/13/22 08:59 Last Admin: 01/14/22 09:47 Dose: 1,000 units Documented by: [id number] Warfarin Sodium (Warfarin Sod 7.5 Mg Tab) 7.5 mg PO SuTuTh@1600 [facility] Stop: 02/12/22 15:59 Last Admin: 01/13/22 16:56 Dose: 7.5 mg Documented by: [id number] Warfarin Sodium (Warfarin Sod 5 Mg Tab) 5 mg PO MoWeFrSa@1600 [facility] Stop: 02/13/22 02:19 Last Admin: 01/14/22 03:00 Dose: 5 mg Documented by: [id number] Discontinued Medications Amiodarone HCl (Amiodarone Iv Bolus & Drip) 1 ea IV NOW STA; Protocol Stop: 01/14/22 11:15 Last Admin: 01/14/22 12:39 Dose: 1 ea Documented by: [id number] Diltiazem HCl (Diltiazem Hcl 5 Mg/Ml 5 Ml Vial) 20 mg IV NOW STA Stop: 01/14/22 02:33 Last Admin: 01/14/22 03:05 Dose: Not Given Documented by: [id number] Hydromorphone HCl (Hydromorphone Inj 0.5 Mg/0.5 Ml Syr) 0.5 mg IV Q15M PRN PRN Reason: Pain Stop: 01/27/22 11:13 Last Admin: 01/13/22 11:25 Dose: 0.5 mg Documented by: [id number] Sodium Chloride (Nss 1000ml) 500 mls @ 999 mls/hr IV .Q31M ONE Stop: 01/13/22 11:33 Last Infusion: 01/13/22 11:55 Dose: 0 mls/hr Documented by: [id number] Admin: 01/13/22 11:26 Dose: 999 mls/hr Documented by: [id number] Sodium Chloride (Nss 1000ml) 1,000 mls @ 125 mls/hr IV .Q8H STA Stop: 01/13/22 19:02 Last Infusion: 01/13/22 15:30 Dose: 0 mls/hr Documented by: [id number] Admin: 01/13/22 11:55 Dose: 125 mls/hr Documented by: [id number] Sodium Chloride (Nss 1000ml) 1,000 mls @ 105 mls/hr IV .Q9H32M [facility] Stop: 01/14/22 10:52 Last Infusion: 01/14/22 00:29 Dose: 0 mls/hr Documented by: [id number] Admin: 01/13/22 15:30 Dose: 105 mls/hr Documented by: [id number] Sodium Chloride (Nss 1000ml) 1,000 mls @ 200 mls/hr IV .Q5H ONE Stop: 01/14/22 05:16 Last Infusion: 01/14/22 05:41 Dose: 0 mls/hr Documented by: [id number] Admin: 01/14/22 00:30 Dose: 200 mls/hr Documented by: [id number] Magnesium Sulfate/Dextrose (Magnesium Sulfate / D5w) 1 gm in 100 mls @ 50 mls/hr IV ONE ONE Stop: 01/14/22 03:51 Last Infusion: 01/14/22 04:20 Dose: 0 mls/hr Documented by: [id number] Admin: 01/14/22 02:20 Dose: 50 mls/hr Documented by: [id number] Amiodarone HCl/Dextrose (Nexterone / D5w) 150 mg in 100 mls @ 600 mls/hr IV NOW STA Stop: 01/14/22 11:23 Last Infusion: 01/14/22 12:02 Dose: 0 mls/hr Documented by: [id number] Cosigned by: [id number] Admin: 01/14/22 11:49 Dose: 600 mls/hr Documented by: [id number] Cosigned by: [id number] Lidocaine (Lidocaine 5% 1 Patch) 1 patch TD QAM [facility] Stop: 02/12/22 18:44 Last Admin: 01/13/22 19:44 Dose: Not Given Documented by: [id number] Metoprolol Tartrate (Metoprolol Tartrate 25 Mg Tab) 25 mg PO NOW STA Stop: 01/14/22 00:53 Last Admin: 01/14/22 01:01 Dose: 25 mg Documented by: [id number] Metoprolol Tartrate (Metoprolol Tartrate 1 Mg/Ml Vial) 2.5 mg IV NOW STA Stop: 01/14/22 01:23 Last Admin: 01/14/22 01:44 Dose: 2.5 mg Documented by: [id number] Nitroglycerin (Nitroglycerin Sl 0.4 Mg/Tab Tab) 0.4 mg SL NOW STA Stop: 01/14/22 00:39 Last Admin: 01/14/22 00:44 Dose: 0.4 mg Documented by: [id number] Ondansetron HCl (Ondansetron Inj 2 Mg/Ml 2 Ml Vial) 4 mg IV NOW STA Stop: 01/13/22 11:04 Last Admin: 01/13/22 11:25 Dose: 4 mg Documented by: [id number] Oxycodone HCl (Oxycodone Hcl Ir 5 Mg Tab (Immediate Release)) 5 mg PO NOW STA Stop: 01/14/22 01:23 Last Admin: 01/14/22 01:53 Dose: 5 mg Documented by: [id number] Discharge Plan Visit Data Chief Complaint: Illness Stated Complaint: FLANK PAIN, NAUSEA, VOMITING ED Provider: Brett Wilkins Discharge Problem: Bilateral flank pain, Nausea & vomiting Patient Disposition: Admitted As Inpatient Discharge Instructions Interventions: ED Discharge Assessment Last Done: 01/13/22 14:55
--- NOTE | 2022-01-13 12:31 | CT Scan Report ---
CT abd pelvis wo con CLINICAL HISTORY: bilat flank pain, vomiting. recent L kid infection COMPARISON STUDY: 01/11/2022 CT DOSE: 719.08 mGycm TECHNIQUE: Standard CT of the Abdomen and Pelvis was performed without IV contrast. The patient did not receive oral contrast. A dose lowering technique was utilized adhering to the principles of MADDISON Collins FINDINGS: Lung base: The lung bases are clear. Abdominal cavity: There is no evidence for abdominal mass, adenopathy or ascites. Liver: The liver is homogeneous in attenuation on these limited noncontrast images..There is mild hep atomegaly. Spleen: The spleen is homogeneous in attenuation on these limited noncontrast images. Pancreas: The pancreas is homogeneous in attenuation on these limited noncontrast images. Gall Bladder: The gallbladder is well distended with no evidence for cholelithiasis, wall thickening or pericholecystic edema.. Adrenal glands: The adrenal glands are normal in size and attenuation on these limited noncontrast im ages. Kidneys: There is no change in appearance of the kidneys with no perinephric inflammatory changes see n. Calcification is again seen involving the margin of the left kidney characteristic of an old subca psular hematoma. There is no evidence for gross renal mass, calculus or hydronephrosis bilaterally. Bowel: The bowel loops are normally placed within the abdomen and pelvis without evidence for dilatat ion or obstruction. There is no evidence for mass lesion. There are no inflammatory changes present. There is no evidence for free air. There is a normal appendix in the right lower quadrant. Bladder: There is no evidence for focal bladder wall thickening, calculus or diverticulum. : There is no evidence for pelvic mass or adenopathy. Vasculature: There is no evidence for focal aneurysmal dilatation of the abdominal aorta. Atheroscler otic calcification is present. Osseous structures: There is no acute osseous pathology. Degenerative changes seen within the spine w ith evidence for at least mild lumbar canal stenosis IMPRESSION: 1. No acute intra-abdominal or pelvic abnormality on these limited noncontrast images. 2. No significant interval change from the previous study. 3. No evidence for renal calculus or hydronephrosis. 4. Degenerative changes lumbar spine with evidence for lumbar canal stenosis. 5. Additional nonacute findings are delineated above. ACT 112: Negative or not required by law. Electronically signed by: Hill Mae M.D. 01/13/2022 12:29 PM
--- NOTE | 2022-01-13 14:15 | CT Scan Report ---
CT lumbar spine wo con HISTORY: 71 years-old Female pain acute low back and bilateral flank pain COMPARISON: CT abdomen and pelvis of same day, 12/15/2018. TECHNIQUE: Multiple axial CT images of the lumbar spine were obtained without the use of IV contrast. A dose lowering technique was used consistent with the principals of JOJO. FINDINGS: Chronic subcapsular changes of the left kidney suggestive of a remote subcapsular hemorrhage. Bilater al adrenal gland adenomas measuring up to approximately 3 cm are redemonstrated. Atherosclerosis of t he aorta. No lymphadenopathy. Mild bibasilar atelectasis. No paravertebral edema identified. Mostly mild multilevel intervertebral disc space narrowing with moderate spondylitic spurring and fac et arthrosis. Mild lumbar levoscoliosis. No acute fracture, subluxation or endplate erosion. Evaluati on of the central canal and neural foramina is better assessed by MRI. Posterior annular disc bulge a t L4-L5 conjunction with spondylitic spurring, ligamentum flavum thickening with moderate facet arthr osis results in moderate central canal stenosis with moderate right and severe left neural foraminal narrowing. Additional smaller posterior annular disc bulges are noted at several levels with at least mild multilevel neural foraminal stenosis. IMPRESSION: 1. No acute fracture or subluxation. 2. Degenerative changes as above with posterior annular disc bulge at L4-L5 resulting in moderate daily tral canal stenosis, moderate right and severe left neural foraminal narrowing. 3. Chronic subcapsular changes of the left kidney. ACT 112: Negative or not required by law. The above report was generated using voice recognition software. It may contain grammatical, syntax o r spelling errors. Electronically signed by: Alexei Francisco M.D. 01/13/2022 2:13 PM
--- NOTE | 2022-01-13 14:22 | XRay Report ---
SINGLE VIEW CHEST CLINICAL HISTORY: Cough. COPD. Atypical chest pain FINDINGS: An AP, portable, upright chest radiograph is compared to study dated 12/15/2018 and correlate d with chest CT dated 09/10/2018. The examination is degraded by portable technique and apical lordoti c positioning. The heart is top normal for projection noting atherosclerotic calcification of the tho racic aorta. Emphysema and chronic interstitial thickening is similar to previous. Scarring/atelectas is is noted at the lung bases. The lungs and pleural spaces are otherwise clear. No pneumothorax is s een. The skeletal structures are osteopenic. The bony thorax is grossly intact. IMPRESSION: Emphysematous change with no acute cardiopulmonary abnormality identified. ACT 112: Negative or not required by law. Electronically signed by: Volodymyr Roldan M.D. 01/13/2022 2:21 PM
[2022-01-13 14:29] LABS: Appearance Urine Clear (Clear); Bilirubin Urine Negative (Negative); Blood Urine Negative (Negative); Color Urine Yellow; Glucose Urine UA Negative (Negative); Ketones Urine Negative (Negative); Leukocyte Esterase Urine Negative (Negative); Nitrite Urine Negative (Negative); Protein Urine Negative (Negative); Specific Gravity Urine 1.008 (1.000-1.030); Urobilinogen Urine Negative (Negative)
--- NOTE | 2022-01-13 14:40 | History & Physical Report ---
Date of Service January 13, 2022 Assessment & Plan (1) Left low back pain: (2) COPD (chronic obstructive pulmonary disease): (3) Chronic anticoagulation: (4) History of pulmonary embolism: Plan: This is a 71-year-old female who has significant past medical history of PE anticoagulated with warfarin, COPD, history of SVT, HLD, cervical and lumbar spine degenerative disease, osteoporosis, positive lupus anticoagulant, tobacco use history, depression who presents to ED due to worsening flank pain x2 weeks. Patient presents with, " left-sided flank pain." Upon examination patient is reporting more of left lower back pain, not flank. Symptoms are not radicular in nature. 3 previous urinalysis negative for infection. During recent ER visit on 01/11 there was questionable concern for cystitis versus pyelonephritis due to CT findings with complaint of flank pain. She was started on antibiotics, but has not been able to take them due to poor intake. Patient symptoms initially started prior to 12/26 when she presented to urgent care and at that time she was complaining of urinary symptoms of dysuria, increased frequency and urgency, hematuria. Urinalysis during that evaluation was negative but did show moderate hematuria. She was treated with a course of amoxicillin for 7 days. Left-sided low back pain Ambulatory dysfunction Nausea/Vomiting I am not entirely convinced symptoms are related to UTI or pyelonephritis given negative UA or CT findings; however suboptimal study given lack of contrast with IVP allergy She did have positive straight leg raise on physical exam, more concerning for musculoskeletal or degenerative lumbar disease Lumbar CT ordered: Degenerative changes as above with posterior annular disc bulge at L4-L5 resulting in moderate central canal stenosis, moderate right and severe left neural foraminal narrowing. Thoracic CT: Degenerative changes as above with posterior disc osteophyte complex at T3-T4 resulting in mild central canal stenosis. Will treat with empiric antibiotics with IV Rocephin for now due to possibly suboptimally treated cystits/pyelo from previous eval Also treat for musculoskeletal component with heat, PT OT, scheduled Tylenol, oral prednisone ( also being prescribed for copd) renal US given L subcapsular hematoma (chronic in nature and appeared on previous imaging) consider consult to orthopedic spine or pain management n/v may be associated to severe pain or medication intolerance COPD w/ exac Emphysema pt with increased prod cough x 3-4 weeks obtain sputum culture, procal encourage pt to take advair bid consistently, prn albuterol add doxycycline for exacerbation prednisone 40mg daily x 5 days which may also help with back pain Hx of PE Chronic Anticoagulation Subtherapeutic INR pt missed dose on 01/11 due to being in ER all evening INR 1.9, continue home regimen 7.5mg sun,,thurs and 5mg all other days Hx of TIA/cva continue statin, asa DVT ppx: coumadin DNR/DNI PCP: [facility] Dispo: med/surg, pt/ot ordered Pt was seen and examined in collaboration with Dr. Kemp, please see addendum History of Present Illness Chief Complaint: "L flank pain x 2 weeks." Primary Care Provider: Brett Pizarro MD This is a 71-year-old female who has significant past medical history of PE anticoagulated with warfarin, COPD, history of SVT, HLD, cervical and lumbar spine degenerative disease, osteoporosis, positive lupus anticoagulant, tobacco use history, depression who presents to ED due to worsening flank pain x2 weeks. Of significance patient was initially seen in urgent care on 12/26/2021 secondary to dysuria, increased urgency and frequency with urination and hematuria. She also complained of mild urinary incontinence, but this is chronic for her. She was treated with a 7-day course of amoxicillin. She was supposed to follow-up with PCP in clinic; however, appointment got canceled and therefore she did not follow-up. Per [facility] urine culture from 12/26 was negative but did show moderate microscopic hematuria. Her symptoms since progressed over the last 2 weeks with the development of left-sided, "flank pain." She describes the pain as flank pain, but points to her left low back. She denies any recent injury, fall, trauma or lifting anything heavy. After taking antibiotics her urinary symptoms did subside, but did not go away altogether. Her pain is constant, is worse with movement and coughing, is improved with lying on her right side, is not improved with Tylenol or Advil, has not had this pain in the past, is not made worse with inspiration and pain does not radiate. She also complains of suprapubic and bilateral lower quadrant abdominal pressure, but not adrienne pain. According to her son who was at bedside on 01/11 patient was in tears due to the severity of her pain. He describes her as a, "tough old lady." He opted to bring her to ER for further evaluation. During that visit her urinalysis showed trace leukocytes but otherwise no bacteria. A culture was not obtained. CT abdomen pelvis was also obtained which was negative for acute infectious finding, but did show tiny foci of gas within the bladder lumen. Also noted was a subcapsular change of the left kidney similar to prior studies relating to a remote subscapular hemorrhage. During that visit she was afebrile and white count was WNL. It was felt that maybe she was developing pyelonephritis and was started on IV Rocephin. It was recommended she be admitted to hospital however patient refused. She was discharged home on oral Zofran and cefdinir. Unfortunately left-sided pain worsened and she developed continue nausea, vomiting and unable to keep anything down including her antibiotics. Her pain now is radiating to her right low back and therefore son brought her back to ED. She denies any fever, chills, sweats, lightheadedness, chest pain, worsening shortness of breath, hemoptysis, abdominal pain, hematuria, melena or hematochezia. She does have chronic dizzin ess and off-balance sensation which she feels is at baseline. She also has chronic shortness of breath in relation to her COPD. She does feel she is increasing her albuterol intake to 2-3 times a week. She also has chronic constipation for which she takes a enema every 3 to 4 days. In ED today she remains hemodynamically stable and afebrile. She continues to have a white count within normal limits. Her CBC and CMP are relatively unremarkable. Her INR is mildly subtherapeutic at 1.9. Her urinalysis is currently pending. Repeat CT abdomen pelvis was negative for any acute findings. She received IV antiemetics, pain medications and IV fluids when in ED. Allergies Allergy/AdvReac Type Severity Reaction Status Date / Time Iodinated Contrast Media Allergy Intermediate HIVES Verified 01/13/22 13:04 Home Medications Medication Instructions Recorded Confirmed Type albuterol sulfate 90 mcg/actuation 2 puff INHALATION Q6H PRN 09/09/18 01/13/22 History aerosol inhaler (Ventolin HFA) fluticasone 250 mcg-salmeterol 50 1 inh INHALATION Q12H PRN 09/09/18 01/13/22 History mcg/dose blistr powdr for inhalation (Advair Diskus) calcium carbonate 600 mg calcium 600 mg PO QAM 12/15/18 01/13/22 History (1,500 mg) tablet (Calcium) cholecalciferol (vitamin D3) 25 1,000 unit PO QAM 12/15/18 01/13/22 History mcg (1,000 unit) tablet omeprazole 20 mg capsule,delayed 20 mg PO DAILY PRN 12/15/18 01/13/22 History release warfarin 5 mg tablet 5 mg PO 4XWK 12/15/18 01/13/22 History warfarin 5 mg tablet 7.5 mg PO 3XWK 12/15/18 01/13/22 History atorvastatin 40 mg tablet 40 mg PO QAM 04/14/21 01/13/22 History duloxetine 60 mg capsule,delayed 60 mg PO HS 04/14/21 01/13/22 History release lorazepam 0.5 mg tablet 0.5 mg PO HS PRN 04/14/21 01/13/22 History buspirone 5 mg tablet 10 mg PO BID 01/11/22 01/13/22 History gabapentin 300 mg capsule 300 mg PO BID 01/11/22 01/13/22 History cefdinir 300 mg capsule 300 mg PO BID 10 Days #20 cap 01/12/22 01/13/22 Rx ondansetron 4 mg disintegrating 4 - 8 mg PO Q8H PRN #14 tab 01/12/22 01/13/22 Rx tablet oxycodone 5 mg tablet 5 mg PO Q6H PRN #12 tab 01/12/22 01/13/22 Rx acetaminophen 500 mg tablet 500 mg PO Q6H PRN 01/13/22 01/13/22 History (Tylenol Extra Strength) aspirin 81 mg tablet,delayed 81 mg PO DAILY 01/13/22 01/13/22 History release Past Med/Surg History Medical History Chronic anticoagulation warfarin daily COPD (chronic obstructive pulmonary disease) (11/17/13) inhalers prn Emphysema lung Hyperlipidemia Hypertension Lupus Memory loss Migraine Poor historian pt has memory loss and had difficulty remembering health history Pulmonary emboli 2019--on warfarin daily TIA (transient ischemic attack) 2019--on warfarin--no issues now--follows with Dr. Joseph Surgical History History of arthroscopy of left shoulder History of arthroscopy of right shoulder History of bilateral cataract extraction History of sinus surgery History of tooth extraction all upper teeth History of total hysterectomy with bilateral salpingo-oophorectomy (BSO) Family History Other Cancer Heart disease Hypertension No family history of adverse response to anesthesia Social History Smoking Status: Current some day smoker Cigarettes Per Day: 2 cigs every 2-3 wks; Second Hand Exposure: Yes; Do You Dip or Chew Tobacco: No; Hx Alcohol Use: No Hx Substance Use: No Preferred Language: Azerbaijani Communication Ability: Effective Funeral Service Manager Required: No Beliefs That Will Affect Care: None marital status: Current Living Situation: Spouse current occupational status: retired Feels Safe at Home: Yes Assistive Devices: None Review of Systems Review of Systems: All systems reviewed & are unremarkable except as noted in HPI & below Physical Exam Physical Exam: Constitutional: WD/WN, elderly, female, vitals as above, NAD, sitting up in bed, pleasant, conversing easily Head: Normocephalic, Atraumatic Eyes: PERRL, conjunctivae normal, anicteric sclerae ENMT: external ear and nose normal, oropharynx normal Neck: trachea midline, no thyromegaly normal visual inspection Respiratory: normal respiratory effort, lungs clear to auscultation, rhonchi noted right middle lobe cleared with coughing, no wheeze or Rales. Normal insp/exp effort, no accessory muscle use Cardiovascular: RRR, no murmur, no edema Vessels: no JVD or carotid bruit Chest: normal inspection of chest Abdomen: normal bowel sounds, soft, nontender, no hepatosplenomegaly Musculoskeletal: no cyanosis or clubbing, extremities motor strength 5/5 , positive straight leg raise to left lower extremity Skin: no rashes, warm and dry normal turgor Neurologic: PERRL, EOMI, accommodation nl, no face palsy, no dysarthria CN's II-XI intact bilaterally and moves all extremities Psychiatric: A+Ox3, euthymic affect Lymphatic: no cervical or axillary lymphadenopathy : deferred Results & Data Results & Data ([facility]) Vital Signs (Past 12 Hours) Vital Signs Temp Pulse Pulse Resp BP BP Pulse Ox 01/13/22 14:00 65 18 143/69 H 93 01/13/22 13:00 64 16 146/66 H 92 01/13/22 12:21 64 19 138/77 95 01/13/22 12:00 72 17 137/64 137/64 94 01/13/22 10:43 36.8 C 72 18 123/67 94 Diagnostic Findings Abdomen/Pelvis CT 01/13/22 11:14 CT abd pelvis wo con CLINICAL HISTORY: bilat flank pain, vomiting. recent L kid infection COMPARISON STUDY: 01/11/2022 CT DOSE: 719.08 mGycm TECHNIQUE: Standard CT of the Abdomen and Pelvis was performed without IV contrast. The patient did not receive oral contrast. A dose lowering technique was utilized adhering to the principles of ALARA. FINDINGS: Lung base: The lung bases are clear. Abdominal cavity: There is no evidence for abdominal mass, adenopathy or ascites. Liver: The liver is homogeneous in attenuation on these limited noncontrast images..There is mild hepatomegaly. Spleen: The spleen is homogeneous in attenuation on these limited noncontrast images. Pancreas: The pancreas is homogeneous in attenuation on these limited noncontrast images. Gall Bladder: The gallbladder is well distended with no evidence for cholelithiasis, wall thickening or pericholecystic edema.. Adrenal glands: The adrenal glands are normal in size and attenuation on these limited noncontrast images. Kidneys: There is no change in appearance of the kidneys with no perinephric inflammatory changes seen. Calcification is again seen involving the margin of the left kidney characteristic of an old subcapsular hematoma. There is no evidence for gross renal mass, calculus or hydronephrosis bilaterally. Bowel: The bowel loops are normally placed within the abdomen and pelvis without evidence for dilatation or obstruction. There is no evidence for mass lesion. There are no inflammatory changes present. There is no evidence for free air. There is a normal appendix in the right lower quadrant. Bladder: There is no evidence for focal bladder wall thickening, calculus or diverticulum. : There is no evidence for pelvic mass or adenopathy. Vasculature: There is no evidence for focal aneurysmal dilatation of the abdominal aorta. Atherosclerotic calcification is present. Osseous structures: There is no acute osseous pathology. Degenerative changes seen within the spine with evidence for at least mild lumbar canal stenosis IMPRESSION: 1. No acute intra-abdominal or pelvic abnormality on these limited noncontrast images. 2. No significant interval change from the previous study. 3. No evidence for renal calculus or hydronephrosis. 4. Degenerative changes lumbar spine with evidence for lumbar canal stenosis. 5. Additional nonacute findings are delineated above. ACT 112: Negative or not required by law. Electronically signed by: Hill Mae M.D. 01/13/2022 12:29 PM Chest X-Ray 01/13/22 13:54 SINGLE VIEW CHEST CLINICAL HISTORY: Cough. COPD. Atypical chest pain FINDINGS: An AP, portable, upright chest radiograph is compared to study dated 12/15/2018 and correlated with chest CT dated 09/10/2018. The examination is degraded by portable technique and apical lordotic positioning. The heart is top normal for projection noting atherosclerotic calcification of the thoracic aorta. Emphysema and chronic interstitial thickening is similar to previous. Scarring/atelectasis is noted at the lung bases. The lungs and pleural spaces are otherwise clear. No pneumothorax is seen. The skeletal structures are osteopenic. The bony thorax is grossly intact. IMPRESSION: Emphysematous change with no acute cardiopulmonary abnormality identified. ACT 112: Negative or not required by law. Electronically signed by: Volodymyr Roldan M.D. 01/13/2022 2:[address] 01/13/22 13:54 CT lumbar spine wo con HISTORY: 71 years-old Female pain acute low back and bilateral flank pain COMPARISON: CT abdomen and pelvis of same day, 12/15/2018. TECHNIQUE: Multiple axial CT images of the lumbar spine were obtained without the use of IV contrast. A dose lowering technique was used consistent with the principals of ALARA. FINDINGS: Chronic subcapsular changes of the left kidney suggestive of a remote subcapsular hemorrhage. Bilateral adrenal gland adenomas measuring up to approximately 3 cm are redemonstrated. Atherosclerosis of the aorta. No lymphadenopathy. Mild bibasilar atelectasis. No paravertebral edema identified. Mostly mild multilevel intervertebral disc space narrowing with moderate spondylitic spurring and facet arthrosis. Mild lumbar levoscoliosis. No acute fracture, subluxation or endplate erosion. Evaluation of the central canal and neural foramina is better assessed by MRI. Posterior annular disc bulge at L4-L5 conjunction with spondylitic spurring, ligamentum flavum thickening with moderate facet arthrosis results in moderate central canal stenosis with moderate right and severe left neural foraminal narrowing. Additional smaller posterior annular disc bulges are noted at several levels with at least mild multilevel neural foraminal stenosis. IMPRESSION: 1. No acute fracture or subluxation. 2. Degenerative changes as above with posterior annular disc bulge at L4-L5 resulting in moderate central canal stenosis, moderate right and severe left neural foraminal narrowing. 3. Chronic subcapsular changes of the left kidney. ACT 112: Negative or not required by law. The above report was generated using voice recognition software. It may contain grammatical, syntax or spelling errors. Electronically signed by: Alexei Francisco M.D. 01/13/2022 2:13 PM Medications Administered Medication List Hydromorphone HCl (Hydromorphone Inj 0.5 Mg/0.5 Ml Syr) 0.5 mg IV Q15M PRN PRN Reason: Pain Stop: 01/27/22 11:13 Last Admin: 01/13/22 11:25 Dose: 0.5 mg Documented by: [id number] Sodium Chloride (Nss 1000ml) 1,000 mls @ 125 mls/hr IV .Q8H STA Stop: 01/13/22 19:02 Last Admin: 01/13/22 11:55 Dose: 125 mls/hr Documented by: [id number] Discontinued Medications Sodium Chloride (Nss 1000ml) 500 mls @ 999 mls/hr IV .Q31M ONE Stop: 01/13/22 11:33 Last Infusion: 01/13/22 11:55 Dose: 0 mls/hr Documented by: [id number] Admin: 01/13/22 11:26 Dose: 999 mls/hr Documented by: [id number] Ondansetron HCl (Ondansetron Inj 2 Mg/Ml 2 Ml Vial) 4 mg IV NOW STA Stop: 01/13/22 11:04 Last Admin: 01/13/22 11:25 Dose: 4 mg Documented by: [id number] COVID-19 Results Results COVID-19 Adm Lab Results: RBC 4.07 M/uL (4.2-5.4) L 01/13/22 WBC 8.10 K/uL (4.8-10.8) 01/13/22 Hgb 12.8 g/dL (12.0-16.0) 01/13/22 Hct 40.0 % (37-47) 01/13/22 Plt Count 248 K/uL (130-400) 01/13/22 Neutrophils (%) (Auto) 64.9 % 01/13/22 Lymphocytes (%) (Auto) 28.8 % 01/13/22 Monocytes # (Auto) 0.48 K/uL (0.11-0.59) 01/13/22 Eosinophils # (Auto) 0.02 K/uL (0-0.5) 01/13/22 Immature Granulocyte % (Auto) 0.1 % 01/13/22 Neutrophils # (Auto) 5.25 K/uL (1.4-6.5) 01/13/22 Lymphocytes # (Auto) 2.33 K/uL (1.2-3.4) 01/13/22 Monocytes # (Auto) 0.48 K/uL (0.11-0.59) 01/13/22 Eosinophils # (Auto) 0.02 K/uL (0-0.5) 01/13/22 Basophils # (Auto) 0.01 K/uL (0-0.2) 01/13/22 Immature Granulocyte # (Auto) 0.01 K/uL (0.00-0.02) 01/13/22 Na 139 mmol/L (136-145) 01/13/22 K 4.0 mmol/L (3.5-5.1) 01/13/22 Cl 106 mmol/L (98-107) 01/13/22 CO2 28 mmol/L (21-32) 01/13/22 Anion Gap 5 (3-11) 01/13/22 BUN 13 mg/dl (6-23) 01/13/22 Creatinine 0.66 mg/dl (0.6-1.2) 01/13/22 BUN/Creatinine Ratio 19.7 (10-20) 01/13/22 Glucose Level 88 mg/dl (70-99(Fasting)) 01/13/22 Ca 9.0 mg/dl (8.5-10.1) 01/13/22 Total Bilirubin 0.5 mg/dl (0.2-1.0) 01/13/22 AST/SGOT 14 U/L (13-39) 01/13/22 ALT/SGPT 10 U/L (7-52) 01/13/22 Alkaline Phosphatase 47 U/L (34-104) 01/13/22 Total Protein 6.6 gm/dl (6.0-8.3) 01/13/22 Albumin 4.0 gm/dl (3.4-5.0) 01/13/22 Globulin 2.6 gm/dl (2.5-4.0) 01/13/22 Albumin/Globulin Ratio 1.5 (0.9-2) 01/13/22 Procalcitonin < 0.05 ng/ml (0-0.5) 01/13/22 INR 1.9 (0.9-1.1) H 01/13/22 SARS-CoV-2, RNA, NAAT NEGATIVE (NEGATIVE) 01/13/22 Micro Respiratory Specimen 01/13/22 Chest X-Ray 01/13/22 Code Status & VTE Plan Code Status DNR/DNI, discussed with patient and son at bedside VTE Prophylaxis Plan VTE Prophylaxis will be ordered: No Supervising Physician Co-Signing Physician Notes Patient was seen and examined independently at bedside. Chart reviewed. Case discussed with Elizabeth ALMONTE. In summary, this is a 71 year old female who presented to the ED with left flank pain, N/V and inability to tolerate oral intake. It all started with left flank/back pain with urinary symptoms and was treated with amoxicillin for 7 days with improvement in urinary symptoms, however her back pain never went away. She was recently in ED 2 days back and was presumed to have pyelo and recommended admission but she did not want to stay and was discharged on cefdinir but she was not able to tolerate it and was having N/V. She also had worsening back pain worse with movements/bending and now with radiation to bilateral thighs and she came to the ED for evaluation. Interestingly, any of her UA did not suggest UTI. She does not have fever or leucocytosis, her procal is negative and her UA is unremarkable. Renal ultrasound negative. CT A/P negative for acute pathology however suboptimal given lack of contrast due to her dye allergy. Her CT thoracic and lumbar spine were reviewed (Degenerative changes as above with posterior annular disc bulge at L4-L5 resulting in moderate central canal stenosis, moderate right and severe left neural foraminal narrowing). Her N/V is likely from medication intolerance. Her back pain could be from the lumbar spine disease rather than pyelo. Will co ntinue pain management and consult ortho spine for evaluation. In the meantime, will continue empiric ABx for ?pyelo (inadequately treated) as patient states she was supposed to get longer treatment for her UTI but could not see her PCP or get longer course of ABx as her appointment was cancelled. Does not have much wheezes during my exam although agree with short course of steroids which will also help with her back pain. Continue lidoderm patch, heat pad, dilaudid prn (oxy prn if able to tolerate po), PT/OT eval. Rest as per the note above. (1) COPD (chronic obstructive pulmonary disease) COPD type: unspecified COPD Qualified Code(s): J44.9 - Chronic obstructive pulmonary disease, unspecified
--- NOTE | 2022-01-13 15:24 | CT Scan Report ---
CT thoracic spine wo con HISTORY: 71 years-old Female pain acute mid back pain COMPARISON: CT lumbar spine and CT abdomen and pelvis studies of same day, thoracic spine radiographs 10/09/2018, CTA chest 09/10/2018 TECHNIQUE: Multiple axial CT images of the thoracic spine were obtained without contrast. A dose lowe ring technique was used consistent with the principals of ALARA. FINDINGS: Demineralized appearance of the bones. No acute fracture, subluxation, destructive bone lesions or en dplate erosions. Mild multilevel intervertebral disc space narrowing with mild to moderate spondyliti c spurring and facet arthrosis. Evaluation of the central canal and neural foramina is better assesse d by MRI. Is a posterior bridging osteophyte/disc osteophyte complex noted at the T3-T4 level which f lattens the ventral thecal causing mild central canal stenosis. No high-grade central canal stenosis identified. Chronic subcapsular changes of the left kidney. Bilateral adrenal gland adenomas are redemonstrated m easuring up to 3 cm. Coronary artery calcifications. 1.2 cm hypodense left thyroid nodule. Mild subse gmental dependent bibasilar atelectasis with associated bronchial wall thickening. Mild emphysema. Ca lcified granuloma of the left lower lobe. IMPRESSION: 1. No acute fracture or subluxation of the thoracic spine. 2. Degenerative changes as above with posterior disc osteophyte complex at T3-T4 resulting in mild ce ntral canal stenosis. ACT 112: Negative or not required by law. The above report was generated using voice recognition software. It may contain grammatical, syntax o r spelling errors. Electronically signed by: Alexei Francisco M.D. 01/13/2022 3:22 PM
--- NOTE | 2022-01-13 15:38 | Ultrasound Report ---
US renal/blad retro comp CLINICAL HISTORY: Flank pain. Evaluate for perinephric hematoma.. COMPARISON: CT of the abdomen and pelvis from 01/13/2022 TECHNIQUE: Multiple grayscale and color images of the kidneys and bladder. FINDINGS: Right kidney: The kidney is normal in size and echogenicity. There is no evidence for renal calculus or hydronephrosis. There is no evidence for solid renal mass. There is no evidence for medical renal disease. The kidney measures 10.7 cm in greatest length. Left kidney: The kidney is normal in size and echogenicity. There is no evidence for renal calculus o r hydronephrosis. There is no evidence for solid renal mass. Minimal calcification is again seen at t he renal margin from old resolved perinephric hematoma. There is no evidence for medical renal diseas e. The kidney measures 11.3 cm in greatest diameter. Bladder: Limited images of the bladder demonstrate no gross abnormality. IMPRESSION: 1. Essentially negative bilateral renal ultrasound as described. ACT 112: Negative or not required by law. Electronically signed by: Hill Mae M.D. 01/13/2022 3:36 PM
[2022-01-13] MEDS ORDERED: ALBUTEROL HFA 8 GM INHALER INH PRN (15:50)
[2022-01-13] MEDS ORDERED: SODIUM CHLORIDE 0.9% 1000ML 1,000 ML IV SCH (15:50)
[2022-01-13] MEDS ORDERED: ONDANSETRON INJ 2 MG/ML 2 ML VIAL IV PRN (15:50)
[2022-01-13] MEDS ORDERED: SOD PHOSPHATE/SOD BIPHOSPHATE ENEMA 132 ML BTL PR PRN (15:50)
[2022-01-13] MEDS ORDERED: BENZONATATE 100 MG CAPSULE PO PRN (15:50)
[2022-01-13] MEDS ORDERED: MAGNESIUM HYDROXIDE SUSP 30 ML UDC PO PRN (15:50)
[2022-01-13] MEDS ORDERED: POLYETHYLENE (MIRALAX) 17 GM PACK PO PRN (15:50)
[2022-01-13] MEDS ORDERED: LORazepam 0.5 MG TAB PO PRN (15:50)
[2022-01-13] MEDS ORDERED: ACETAMINOPHEN 325 MG TAB PO PRN (15:50)
[2022-01-13] MEDS ORDERED: ALUMINUM/MAGNESIUM SUSP 30 ML UDC PO PRN (15:50)
[2022-01-13] MEDS ORDERED: WARFARIN SOD 7.5 MG TAB PO SCH (16:00)
[2022-01-13] MEDS: oxyCODONE HCL IR 5 MG TAB (IMMEDIATE RELEASE) PO PRN (16:56)
[2022-01-13] MEDS: predniSONE 20 MG TAB PO SCH (16:57)
[2022-01-13] MEDS: DOXYCYCLINE HYCLATE 100 MG in DEXTROSE 5% 100 ML IV SCH (16:57)
[2022-01-13] MEDS: cefTRIAXone SODIUM 1,000 MG in DEXTROSE 5% 50 ML IV SCH (16:57)
[2022-01-13] MEDS: ACETAMINOPHEN 325 MG TAB PO SCH ×2 (16:59→20:55)
[2022-01-13] MEDS ORDERED: LIDOCAINE 5% 1 PATCH TD SCH (18:45)
[2022-01-13] MEDS: DULoxetine HCL 60 MG CAP PO SCH (20:55)
[2022-01-13] MEDS: busPIRone 5 MG TAB PO SCH (20:55)
[2022-01-13] MEDS: GABAPENTIN 300 MG CAP PO SCH (20:56)
[2022-01-13] MEDS: LIDOCAINE 5% 1 PATCH TD SCH (20:56)
[2022-01-14] MEDS ORDERED: SODIUM CHLORIDE 0.9% 1000ML 1,000 ML IV ONE (00:17)
[2022-01-14] MEDS ORDERED: NITROGLYCERIN SL 0.4 MG/TAB TAB SL STA (00:38)
[2022-01-14] MEDS ORDERED: METOPROLOL TARTRATE 25 MG TAB PO STA (00:52)
--- NOTE | 2022-01-14 00:52 | Communication Note ---
Date of Service: January 14, 2022 12:15 AM Patient noted to be tachycardic and with irregular pulse. Initial dizziness when patient got up to go to the bathroom as per RN. Cardiac rate 1 15-1 50s Patient later on complained of crushing chest pain. No relief with nitroglycerin. EKG as per my interpretation Rate 125, A. fib, normal axis, no ischemia INR 2 AP New onset A. fib PCU to facilitate IV beta-marcos administration Initiate beta-marcos for rate control TTE, Cardiology consult Re: New onset A. fib Coumadin with goal INR between 2 and 3 for patient's hypercoagulable state /thromboembolic prophylaxis for new onset A. fib Will relay to AM provider.
[2022-01-14] MEDS: oxyCODONE HCL IR 5 MG TAB (IMMEDIATE RELEASE) PO PRN (00:53)
[2022-01-14 01:21] LABS: Hematocrit (blood only) 39.6 % (37-47); Hemoglobin 12.9 g/dL (12.0-16.0); Immature Granulocytes # (auto) 0.01 K/uL (0.00-0.02); Immature Granulocytes % (auto) 0.2 %; Lymphocytes # (auto) 1.01 K/uL (1.2-3.4); Lymphocytes % (auto) 16.3 %; Mean Corpuscular Hemoglobin 31.8 pg (25-34); Mean Corpuscular Hgb Conc 32.6 g/dL (32-36); Mean Corpuscular Volume 97.5 fL (80-100); Mean Platelet Volume 9.3 fL (7.4-10.4); Monocytes # (auto) 0.07 K/uL (0.11-0.59); Monocytes % (auto) 1.1 %; Neutrophils % (auto) 82.4 %; Platelet Count 267 K/uL (130-400); RDW Coefficient of Variation 13.5 % (11.5-14.5); RDW Standard Deviation 48.4 fL (36.4-46.3); Red Blood Count 4.06 M/uL (4.2-5.4); White Blood Count 6.19 K/uL (4.8-10.8)
[2022-01-14] MEDS ORDERED: oxyCODONE HCL IR 5 MG TAB (IMMEDIATE RELEASE) PO STA (01:22)
[2022-01-14] MEDS ORDERED: METOPROLOL TARTRATE 1 MG/ML VIAL IV STA (01:22)
[2022-01-14 01:40] LABS: Partial Thromboplastin Ratio 1.2; Partial Thromboplastin Time 33.9 Seconds (21.0-31.0); Prothrombin Time 20.2 Seconds (9.0-12.0)
[2022-01-14 01:48] LABS: Est GFR (African American) 106.6 ml/min; Troponin I High Sensitivity 3.8 pg/ml (0-14)
[2022-01-14 01:49] LABS: Albumin Globulin Ratio 1.5 (0.9-2); Albumin Level 3.9 gm/dl (3.4-5.0); BUN Creatinine Ratio 17.5 (10-20); Bilirubin,Total 0.5 mg/dl (0.2-1.0); Calcium 8.8 mg/dl (8.5-10.1); Creatinine Clr Calc Pharmacy 81.7 ml/min; Globulin 2.6 gm/dl (2.5-4.0); Magnesium 1.8 mg/dl (1.7-2.4); Total Protein 6.5 gm/dl (6.0-8.3)
[2022-01-14] MEDS ORDERED: MAGNESIUM SULFATE / D5W 1 GM/100 ML BAG IV ONE (01:52)
[2022-01-14] MEDS ORDERED: WARFARIN SOD 5 MG TAB PO SCH ×2 (02:20→16:00)
[2022-01-14] MEDS ORDERED: dilTIAZem HCl 5 MG/ML 5 ML VIAL IV STA (02:32)
[2022-01-14] MEDS ORDERED: XOPENEX/ATROVENT 1.25mg/0.5MG NEB COMBO NEB PRN (02:33)
[2022-01-14] MEDS ORDERED: IPRATROPIUM BROMIDE NEB SOLN 0.02% 2.5 ML VIAL INH PRN (02:45)
[2022-01-14] MEDS ORDERED: LEVALBUTEROL 1.25MG/0.5ML NEB INH PRN (02:45)
[2022-01-14] MEDS ORDERED: MELATONIN 3 MG TAB PO PRN (03:04)
[2022-01-14] MEDS ORDERED: DIGOXIN 250 MCG in SYRINGE 9 ML IV ONE (04:15)
[2022-01-14] MEDS: DOXYCYCLINE HYCLATE 100 MG in DEXTROSE 5% 100 ML IV SCH ×2 (05:38→17:56)
--- NOTE | 2022-01-14 08:10 | Cardiology Consultation ---
Date of Consultation January 14, 2022 Assessment & Plan (1) New onset a-fib: New onset atrial fibrillation seen on telemetry over night. Patient was symptomatic with chest pain and shortness of breath with elevated rates. Symptoms improved but not resolved with lower heart rates. Patient anticoagulated on Coumadin due to history of PE, continue- INR normally within goal range of 2-3, but she did miss one dose recently due to ED visit and INR was 1.9- today 2.0 Improved HRs ~110s on telemetry- continue metoprolol tartrate 25 mg BID Discussed rate vs rhythm control with patient. Further recommendations pending echo results- discussed with Dr. Guerrero, patient would possibly would benefit from IV amiodarone to try and covert patient to SR. Will need to monitor INR closely. Can consider outpatient nuclear stress testing to rule out ischemic cause to the new onset afib. (2) History of pulmonary embolism: Hx of PE- on chronic anticoagulation with Coumadin. (3) Left low back pain: (4) Acute left flank pain: (5) Nausea & vomiting: Pain related to complicated UTI vs degenerative changes of the spine. Will defer to primary team regarding evaluation and treatment. (6) TIA (transient ischemic attack): History of TIA in 2019- treated with ASA and Statin. Case discussed with Dr. Guerrero. Will follow. Supervising Physician Co-Signing Physician Notes Supervising Physician Attestation: I have personally performed a history and physical examination on the patient. I agree with the physician teaching assistant's findings and plan as documented with the following additions. Subjective: Patient feeling comfortable at present. No chest discomfort. Noted onset chest pressure the 20 19-30 a.m., correlates with onset of atrial fibrillation with rapid ventricular response, rate as high as 170 bpm at time of symptoms. Currently atrial fibrillation 80s to 90s noted. Exam: Cardiovascular regular rhythm, no murmurs Extremities no edema Data: INR, 2 Assessment and Plan: New onset, symptomatic AF RVR Already on warfarin, INR 2 due to h/o PE Continue metoprolol. Add IV amiodarone for acute rate / rhythm control for 24 hr trial, then reassess. LFTs, TSH within normal limits. Presenting symptoms of back pain perhaps explained by CT findings of thoracic disk disease. Carlos Guerrero, DO History of Present Illness Reason for Consultation: Atrial fibrillation, new onset Requesting Physician: [facility] hospitalist Attending Physician: Min Voss MD History of Present Illness 71-year-old female presented to the emergency department due to left-sided lower back pain x2 weeks, worsening. Patient's daughter is Florinda Easley, she is an RN with [employer]. On 12/26 patient presented to urgent care with complaints of urinary symptoms of dysuria, increased frequency and urgency, hematuria. Urinalysis was negative but did show moderate hematuria. She was treated with amoxicillin for 1 week. Then on 01/11 she presented to the emergency department with ongoing concerns specifically flank pain. There was concern for questionable cystitis versus pyelonephritis due to CT findings. She was then started on antibiotics again but was not able to complete due to poor oral intake. During this visit symptoms were more concerning for musculoskeletal/degenerative lumbar disease as a cause of her discomfort. She was treated empirically with IV antibiotics and was given Tylenol for pain relief. Patient also noted an increased cough- treated with prednisone and doxy for a COPD exacerbation. Cardiology was consulted due to an EKG that was performed at midnight which showed rapid atrial fibrillation, 124 bpm. She is anticoagulated with warfarin due to a history of PE. INR was 2.0 this am (did miss one dose of Coumadin due to ED visit and INR was 1.9 yesterday) Renal function stable. CBC stable. Echo pending. During this event patient was symptoms with chest discomfort described as a heavy pressure on her chest with palpitations. She was short of breath. No dizziness or syncope. Did feel fatigued. Upon entrance into the room patient resting comfortably in bed. No acute distress. Patient remains in atrial fibrillation with rates in the 100-120s. She is still somewhat symptomatic with light chest discomfort intermittently, but "nothing compared to last night". No further shortness of breath. Denies any prior history of atrial fibrillation or other arrhythmias. Has been able to eat breakfast this morning without nausea or vomiting (unable to keep food or fluids down over the last week). Tele: atrial fib 100-120s (as high as 140s over night) Weight: 71.9 kg I&O: 650 mL Past medical history: History of PE, anticoagulated on warfarin COPD Hyperlipidemia HTN Cervical and lumbar spine degenerative disease Osteoporosis Positive lupus anticoagulant History of tobacco use Personal history of TIA Allergies Allergy/AdvReac Type Severity Reaction Status Date / Time Iodinated Contrast Media Allergy Intermediate HIVES Verified 01/13/22 13:04 Home Medications Medication Instructions Recorded Confirmed Type albuterol sulfate 90 mcg/actuation 2 puff INHALATION Q6H PRN 09/09/18 01/13/22 History aerosol inhaler (Ventolin HFA) fluticasone 250 mcg-salmeterol 50 1 inh INHALATION Q12H PRN 09/09/18 01/13/22 Hi story mcg/dose blistr powdr for inhalation (Advair Diskus) calcium carbonate 600 mg calcium 600 mg PO QAM 12/15/18 01/13/22 History (1,500 mg) tablet (Calcium) cholecalciferol (vitamin D3) 25 1,000 unit PO QAM 12/15/18 01/13/22 History mcg (1,000 unit) tablet omeprazole 20 mg capsule,delayed 20 mg PO DAILY PRN 12/15/18 01/13/22 History release warfarin 5 mg tablet 5 mg PO 4XWK 12/15/18 01/13/22 History warfarin 5 mg tablet 7.5 mg PO 3XWK 12/15/18 01/13/22 History atorvastatin 40 mg tablet 40 mg PO QAM 04/14/21 01/13/22 History duloxetine 60 mg capsule,delayed 60 mg PO HS 04/14/21 01/13/22 History release lorazepam 0.5 mg tablet 0.5 mg PO HS PRN 04/14/21 01/13/22 History buspirone 5 mg tablet 10 mg PO BID 01/11/22 01/13/22 History gabapentin 300 mg capsule 300 mg PO BID 01/11/22 01/13/22 History cefdinir 300 mg capsule 300 mg PO BID 10 Days #20 cap 01/12/22 01/13/22 Rx ondansetron 4 mg disintegrating 4 - 8 mg PO Q8H PRN #14 tab 01/12/22 01/13/22 Rx tablet oxycodone 5 mg tablet 5 mg PO Q6H PRN #12 tab 01/12/22 01/13/22 Rx acetaminophen 500 mg tablet 500 mg PO Q6H PRN 01/13/22 01/13/22 History (Tylenol Extra Strength) aspirin 81 mg tablet,delayed 81 mg PO DAILY 01/13/22 01/13/22 History release Patient History Medical History Chronic anticoagulation warfarin daily COPD (chronic obstructive pulmonary disease) (11/17/13) inhalers prn Emphysema lung Hyperlipidemia Hypertension Lupus Memory loss Migraine Poor historian pt has memory loss and had difficulty remembering health history Pulmonary emboli 2019--on warfarin daily TIA (transient ischemic attack) 2019--on warfarin--no issues now--follows with Dr. Joseph Surgical History History of arthroscopy of left shoulder History of arthroscopy of right shoulder History of bilateral cataract extraction History of sinus surgery History of tooth extraction all upper teeth History of total hysterectomy with bilateral salpingo-oophorectomy (BSO) Family History Other Cancer Heart disease Hypertension No family history of adverse response to anesthesia Social History Smoking Status: Current some day smoker Cigarettes Per Day: 2 cigs every 2-3 wks; Second Hand Exposure: Yes; Do You Dip or Chew Tobacco: No; Hx Alcohol Use: No Hx Substance Use: No Preferred Language: German Communication Ability: Effective Engagement Quality Consultant Required: No Beliefs That Will Affect Care: None marital status: Current Living Situation: Spouse current occupational status: retired Feels Safe at Home: Yes Assistive Devices: None Review of Systems Review of Systems: All systems reviewed & are unremarkable except as noted in HPI & below Physical Exam Constitutional: WD/WN, vitals as above no acute distress Eyes: PERRL, conjunctivae normal, anicteric sclerae Neck: trachea midline, no thyromegaly Respiratory: normal respiratory effort, lungs clear to auscultation Cardiovascular: Rate/Rhythm: + tachycardic and + irregularly irregular Heart Sounds: normal S1 and normal S2 Vessels: normal peripheral pulses; no JVD Extremities: no edema Gastrointestinal (Abdomen): Inspection/Auscultation: abdomen normal to inspection and normal bowel sounds; abdomen not distended Percussion/Palpation: abdomen soft; abdomen nontender Musculoskeletal: no cyanosis or clubbing, extremities motor strength 5/5 Skin: no rashes, warm and dry Neurologic: PERRL, EOMI, accommodation nl, no face palsy, no dysarthria Psychiatric: A+Ox3, euthymic affect Results & Data ([facility]) Vital Signs (Past 12 Hours) Vital Signs Temp Pulse Pulse Resp BP BP Pulse Ox 01/14/22 08:00 36.6 C 69 20 125/61 95 01/14/22 03:05 36.6 C 95 H 18 107/71 94 01/14/22 01:44 134 H 120/78 01/14/22 01:36 137 H 01/14/22 01:35 134 H 20 120/78 92 01/14/22 01:34 01/14/22 00:07 36.7 C 112 H 18 132/92 94 Pulse Ox 01/14/22 08:00 01/14/22 03:05 01/14/22 01:44 01/14/22 01:36 01/14/22 01:35 01/14/22 01:34 93 01/14/22 00:07 Laboratory Results Cardiac Enzymes 01/13/22 01/14/22 Range/Units 11:00 00:56 AST 14 12 L (13-39) U/L Troponin I High Sens 3.8 (0-14) pg/ml Coagulation 01/13/22 01/14/22 Range/Units 11:00 00:56 PT 19.2 H 20.2 H (9.0-12.0) Seconds APTT 33.9 H (21.0-31.0) Seconds CBC 01/13/22 01/14/22 Range/Units 11:00 00:56 WBC 8.10 6.19 (4.8-10.8) K/uL RBC 4.07 L 4.06 L (4.2-5.4) M/uL Hgb 12.8 12.9 (12.0-16.0) g/dL Hct 40.0 39.6 (37-47) % Plt Count 248 267 (130-400) K/uL Neut # (Auto) 5.25 5.10 (1.4-6.5) K/uL Lymph # (Auto) 2.33 1.01 L (1.2-3.4) K/uL [place] # (Auto) 0.48 0.07 L (0.11-0.59) K/uL Eos # (Auto) 0.02 0.00 (0-0.5) K/uL Baso # (Auto) 0.01 0.00 (0-0.2) K/uL Comprehensive Metabolic Panel 01/13/22 01/14/22 Range/Units 11:00 00:56 Sodium 139 141 (136-145) mmol/L Potassium 4.0 4.0 (3.5-5.1) mmol/L Chloride 106 110 H (98-107) mmol/L Carbon Dioxide 28 23 (21-32) mmol/L BUN 13 10 (6-23) mg/dl Creatinine 0.66 0.57 L (0.6-1.2) mg/dl Glucose 88 136 H (70-99(Fasting)) mg/dl Calcium 9.0 8.8 (8.5-10.1) mg/dl AST 14 12 L (13-39) U/L ALT 10 12 (7-52) U/L Alkaline Phosphatase 47 50 (34-104) U/L Total Protein 6.6 6.5 (6.0-8.3) gm/dl Albumin 4.0 3.9 (3.4-5.0) gm/dl Intake and Output 01/13/22 01/14/22 01/14/22 22:59 06:59 14:59 Intake Total 617.917 / 3281.167 2163.25 / 3281.167 110 / 110 Output Total 650 / 650 Balance 617.917 / 2631.167 1513.25 / 2631.167 110 / 110 Intake: IV 617.917 / 3161.167 2043.25 / 3161.167 110 / 110 Doxycycline Hyclate 100 mg In 110 / 110 110 / 110 Dextrose 5% 100 ml @ 50 mls/hr IV Q12H [facility] Rx#:[id number] Magnesium Sulfate / D5w 1 gm In 100 / 100 100 ml @ 50 mls/hr IV ONE ONE Rx#:[id number] Sodium Chloride 0.9% 1000ML 1, 447.917 / 2391.167 1943.25 / 2391.167 000 ml @ 200 mls/hr IV .Q5H ONE Rx#:[id number] cefTRIAXone SODIUM 1,000 mg In 60 / 60 Dextrose 5% 50 ml @ 100 mls/hr IV Q24H [facility] Rx#:[id number] Oral 120 / 120 Output: Urine 650 / 650 Other: # Unmeasured Voids 1 1 Weight 72 kg 71.9 kg Weight Measurement Method [facility] in [facility]
[2022-01-14] MEDS: METOPROLOL TARTRATE 25 MG TAB PO SCH ×2 (09:44→20:35)
[2022-01-14] MEDS: GABAPENTIN 300 MG CAP PO SCH ×2 (09:45→20:33)
[2022-01-14] MEDS: predniSONE 20 MG TAB PO SCH (09:45)
[2022-01-14] MEDS: busPIRone 5 MG TAB PO SCH ×2 (09:46→20:34)
[2022-01-14] MEDS: ASPIRIN 81 MG ECTAB PO SCH (09:47)
[2022-01-14] MEDS: FLUTICASONE/VILANTEROL 100/25MCG 14 PUFFS/INHALER INH SCH (09:47)
[2022-01-14] MEDS: CALCIUM CARBONATE 1250MG TAB PO SCH (09:47)
[2022-01-14] MEDS: ATORVASTATIN 40 MG TAB PO SCH (09:47)
[2022-01-14] MEDS: CHOLECALCIFEROL 1,000 UNITS 25 MCG TAB PO SCH (09:47)
[2022-01-14] MEDS: LIDOCAINE 5% 1 PATCH TD SCH (09:48)
[2022-01-14] MEDS: ACETAMINOPHEN 325 MG TAB PO SCH ×4 (10:04→20:35)
[2022-01-14] MEDS ORDERED: AMIODARONE IV BOLUS & DRIP IV STA (11:14)
[2022-01-14] MEDS ORDERED: AMIODARONE / D5W 150 MG/100 ML BAG IV STA (11:14)
[2022-01-14] MEDS ORDERED: STAT IV Infusion **Titration per Protocol STA (11:14)
[2022-01-14] MEDS ORDERED: 0.2 MICRON FILTER SET 1 EA IV ONE (11:14)
[2022-01-14] MEDS ORDERED: AMIODARONE / D5W 360 MG/200 ML BAG IV ONE (11:30)
[2022-01-14] MEDS: cefTRIAXone SODIUM 1,000 MG in DEXTROSE 5% 50 ML IV SCH (16:23)
[2022-01-14] MEDS: AMIODARONE / D5W 360 MG/200 ML BAG IV SCH (17:35)
--- NOTE | 2022-01-14 20:31 | Hospitalist Progress Note ---
Date of Service January 14, 2022 Assessment & Plan (1) Left low back pain: (2) New onset a-fib: (3) COPD (chronic obstructive pulmonary disease): (4) Chronic anticoagulation: (5) History of pulmonary embolism: Plan: This is a 71-year-old female who has significant past medical history of PE anticoagulated with warfarin, COPD, history of SVT, HLD, cervical and lumbar spine degenerative disease, osteoporosis, positive lupus anticoagulant, tobacco use history, depression who presents to ED due to worsening low back pain radiated to her both tights Left-sided low back pain Ambulatory dysfunction Nausea/Vomiting Doubt symptoms related to UTI Completed 7 days course of Amoxicillin CT Lumbar spine showed Degenerative changes as above with posterior annular disc bulge at L4-L5 resulting in moderate central canal stenosis, moderate right and severe left neural foraminal narrowing. UA negative for UTI and urine cx no growth Currently on IV ceftriaxone Continue pain management with lidocaine patch and oxycodone Ortho consult- Pending Atrial Fibrillation with RVR New episode of Afib cardiology on board Case discussed with cardio Started on Amiodarone drip Already on Coumadin for history of PE Continue coumadin with INR 2 COPD w/ exac Emphysema CXR showed emphysematous change with no acute cardiopulmonary abnormality identified. Increased productive cough x 3-4 weeks Procalcitonin normal and sputum culture grew normal shae Pt advised to take her advair bid consistently, prn albuterol Continue prednisone and doxycycline for now Hx of PE Chronic Anticoagulation Subtherapeutic INR pt missed dose on 01/11 due to being in ER all evening Continue coumadin, INR 2 Hx of TIA/cva continue statin, asa DVT ppx: coumadin DNR/DNI Disposition Continue monitor in PCU Admission and Anticipated Discharge Date Admission Date: January 13, 2022 Subjective Pt was seen and evaluated for follow up of chest pain and afib Lying in bed with no acute distress Pt said that last night she felt someone sitting on her chest She was found to be in Afib in RVR on admission Currently she said that her low back pain improves Denies any chest pain, palpitation, dizziness and SOB Review of Systems Review of Systems: All systems reviewed & are unremarkable except as noted in Subjective Physical Exam Physical Exam: General- No acute distress Head- atraumatic Eyes- PERRL, EOMI, ENT- oropharynx clear Neck- supple, no JVD Lungs- clear to auscultation Heart- no murmur Abdomen- normal bowel sounds, soft, nontender Extremities- no calf tenderness Neuro- alert, oriented x 3; PERRL, EOMI; no facial palsy; no dysarthria Skin- warm & dry Results & Data Results & Data ([facility]) Vital Signs (Past 12 Hours) Vital Signs Temp Pulse Pulse Resp BP BP Pulse Ox 01/14/22 19:01 36.8 C 92 H 18 125/73 96 01/14/22 15:16 36.6 C 80 19 129/76 95 01/14/22 11:52 36.6 C 91 H 18 124/69 94 (1) COPD (chronic obstructive pulmonary disease) COPD type: unspecified COPD Qualified Code(s): J44.9 - Chronic obstructive pulmonary disease, unspecified
[2022-01-14] MEDS: DULoxetine HCL 60 MG CAP PO SCH (20:34)
[2022-01-15] MEDS: AMIODARONE / D5W 360 MG/200 ML BAG IV SCH ×2 (05:33→16:39)
[2022-01-15] MEDS: DOXYCYCLINE HYCLATE 100 MG in DEXTROSE 5% 100 ML IV SCH ×2 (05:36→16:21)
[2022-01-15 06:51] LABS: BUN Creatinine Ratio 20.9 (10-20); Calcium 8.5 mg/dl (8.5-10.1); Creatinine Clr Calc Pharmacy 69.6 ml/min; Est GFR (African American) 101.1 ml/min; Est GFR (Non-African American) 87.2 ml/min; Potassium 3.6 mmol/L (3.5-5.1)
[2022-01-15 06:58] LABS: INR 3.9 (0.9-1.1)
[2022-01-15] MEDS: ACETAMINOPHEN 325 MG TAB PO SCH ×4 (07:59→20:26)
[2022-01-15] MEDS: ATORVASTATIN 40 MG TAB PO SCH (08:00)
[2022-01-15] MEDS: ASPIRIN 81 MG ECTAB PO SCH (08:00)
[2022-01-15] MEDS: busPIRone 5 MG TAB PO SCH ×2 (08:01→20:26)
[2022-01-15] MEDS: CHOLECALCIFEROL 1,000 UNITS 25 MCG TAB PO SCH (08:01)
[2022-01-15] MEDS: GABAPENTIN 300 MG CAP PO SCH ×2 (08:02→20:26)
[2022-01-15] MEDS: CALCIUM CARBONATE 1250MG TAB PO SCH (08:02)
[2022-01-15] MEDS: predniSONE 20 MG TAB PO SCH (08:03)
[2022-01-15] MEDS: FLUTICASONE/VILANTEROL 100/25MCG 14 PUFFS/INHALER INH SCH (08:03)
[2022-01-15] MEDS: LIDOCAINE 5% 1 PATCH TD SCH (08:04)
[2022-01-15] MEDS: METOPROLOL TARTRATE 25 MG TAB PO SCH ×2 (08:10→20:27)
--- NOTE | 2022-01-15 10:58 | Orthopedic Consultation ---
Date of Consultation January 15, 2022 Assessment & Plan (1) Left low back pain: At this time she would be a candidate to obtain an MRI at some point clearly she has other medical issues more pressing in nature. There is nothing urgent from his orthopedic spine standpoint. She is good follow-up in outpatient basis. History of Present Illness Reason for Consultation: Back pain Attending Physician: Min Voss MD History of Present Illness Patient states that she does have a history of lumbosacral back pain. Is often worse throughout the day. She describes her self is a very active individual. She states for the end of the day she notes a worsening back pain and heaviness in her legs. She does not describe any clear claudicant pain. She denies any weakness. Allergies Allergy/AdvReac Type Severity Reaction Status Date / Time Iodinated Contrast Media Allergy Intermediate HIVES Verified 01/13/22 13:04 Home Medications Medication Instructions Recorded Confirmed Type albuterol sulfate 90 mcg/actuation 2 puff INHALATION Q6H PRN 09/09/18 01/13/22 History aerosol inhaler (Ventolin HFA) fluticasone 250 mcg-salmeterol 50 1 inh INHALATION Q12H PRN 09/09/18 01/13/22 History mcg/dose blistr powdr for inhalation (Advair Diskus) calcium carbonate 600 mg calcium 600 mg PO QAM 12/15/18 01/13/22 History (1,500 mg) tablet (Calcium) cholecalciferol (vitamin D3) 25 1,000 unit PO QAM 12/15/18 01/13/22 History mcg (1,000 unit) tablet omeprazole 20 mg capsule,delayed 20 mg PO DAILY PRN 12/15/18 01/13/22 History release warfarin 5 mg tablet 5 mg PO 4XWK 12/15/18 01/13/22 History warfarin 5 mg tablet 7.5 mg PO 3XWK 12/15/18 01/13/22 History atorvastatin 40 mg tablet 40 mg PO QAM 04/14/21 01/13/22 History duloxetine 60 mg capsule,delayed 60 mg PO HS 04/14/21 01/13/22 History release lorazepam 0.5 mg tablet 0.5 mg PO HS PRN 04/14/21 01/13/22 History buspirone 5 mg tablet 10 mg PO BID 01/11/22 01/13/22 History gabapentin 300 mg capsule 300 mg PO BID 01/11/22 01/13/22 History cefdinir 300 mg capsule 300 mg PO BID 10 Days #20 cap 01/12/22 01/13/22 Rx ondansetron 4 mg disintegrating 4 - 8 mg PO Q8H PRN #14 tab 01/12/22 01/13/22 Rx tablet oxycodone 5 mg tablet 5 mg PO Q6H PRN #12 tab 01/12/22 01/13/22 Rx acetaminophen 500 mg tablet 500 mg PO Q6H PRN 01/13/22 01/13/22 History (Tylenol Extra Strength) aspirin 81 mg tablet,delayed 81 mg PO DAILY 01/13/22 01/13/22 History release Patient History Medical History Chronic anticoagulation warfarin daily COPD (chronic obstructive pulmonary disease) (11/17/13) inhalers prn Emphysema lung Hyperlipidemia Hypertension Lupus Memory loss Migraine Poor historian pt has memory loss and had difficulty remembering health history Pulmonary emboli 2019--on warfarin daily TIA (transient ischemic attack) 2019--on warfarin--no issues now--follows with Dr. Joseph Surgical History History of arthroscopy of left shoulder History of arthroscopy of right shoulder History of bilateral cataract extraction History of sinus surgery History of tooth extraction all upper teeth History of total hysterectomy with bilateral salpingo-oophorectomy (BSO) Family History Other Cancer Heart disease Hypertension No family history of adverse response to anesthesia Social History Smoking Status: Current some day smoker Cigarettes Per Day: 2 cigs every 2-3 wks; Second Hand Exposure: Yes; Do You Dip or Chew Tobacco: No; Hx Alcohol Use: No Hx Substance Use: No Preferred Language: Slovak Communication Ability: Effective Field Gauger Required: No Beliefs That Will Affect Care: None marital status: Current Living Situation: Spouse current occupational status: retired Feels Safe at Home: Yes Assistive Devices: None Physical Exam Physical Exam: On exam she is able to sit up without difficulty. She has good strength testing lower extremities. She has no pain to palpation lumbar musculature. Results & Data ([facility]) Vital Signs (Past 12 Hours) Vital Signs Temp Pulse Pulse Resp BP Pulse Ox Pulse Ox 01/15/22 08:23 36.8 C 87 18 149/94 H 95 01/15/22 08:00 83 01/15/22 04:13 36.9 C 83 20 131/86 96 01/15/22 01:34 95 01/14/22 23:33 36.8 C 97 H 18 126/74 97
--- NOTE | 2022-01-15 13:58 | Cardiology Progress Note ---
Date of Service January 15, 2022 Assessment & Plan (1) New onset a-fib: (2) History of pulmonary embolism: (3) TIA (transient ischemic attack): Plan: 71-year-old patient mated with new onset atrial fibrillation with rapid ventricular response. Heart rate improved with IV amiodarone infusion and oral metoprolol. INR mildly subtherapeutic on admission. Continue beta-marcos and amiodarone today. Warfarin for anticoagulation. If she remains in atrial fibrillation, will consider transesophageal echo guided cardioversion on 01/17/2022. Admission and Anticipated Discharge Date Admission Date: January 14, 2022 Subjective Patient seen examined the bedside. Heart rate improved with IV amiodarone and oral metoprolol. INR mildly subtherapeutic, 1.9 on admission. Otherwise, anticoagulation has been well regulated and therapeutic over the past 3 months. Feeling well this morning. Denies any palpitations. Telemetry demonstrates atrial fibrillation in the 70s during sleep, 90s while awake. IV amiodarone infusing. Blood pressure remained stable. Review of Systems Review of Systems: All systems reviewed & are unremarkable except as noted in Subjective Physical Exam Constitutional: well nourished; no acute distress Respiratory: normal respiratory effort; no respiratory distress, no labored breathing and no retractions Auscultation: lungs clear to auscultation bilaterally; no crackles, no rales, no rhonchi and no wheezes Cardiovascular: Rate/Rhythm: + irregularly irregular Heart Sounds: normal S1 and normal S2 Vessels: radial pulses present; no JVD and no carotid bruit Extremities: no edema Gastrointestinal (Abdomen): Inspection/Auscultation: normal bowel sounds; abdomen not distended Percussion/Palpation: abdomen soft; abdomen nontender, no guarding and abdomen not rigid Neurologic: CN's II-XI intact bilaterally and moves all extremities; no focal motor deficits Motor/Sensory: no tremor Psychiatric: A+Ox3, euthymic affect Results & Data ([facility]) Vital Signs (Past 12 Hours) Vital Signs Temp Pulse Pulse Resp BP Pulse Ox 01/15/22 11:51 36.7 C 78 18 118/73 95 01/15/22 08:23 36.8 C 87 18 149/94 H 95 01/15/22 08:00 83 01/15/22 04:13 36.9 C 83 20 131/86 96
--- NOTE | 2022-01-15 14:34 | Electrocardiogram Report ---
Test Reason : Blood Pressure : / mmHG Vent. Rate : 124 BPM Atrial Rate : 136 BPM P-R Int : 000 ms QRS Dur : 070 ms QT Int : 310 ms P-R-T Axes : 000 060 032 degrees QTc Int : 445 ms Atrial fibrillation with rapid ventricular response Nonspecific ST abnormality Abnormal ECG When compared with ECG of 15-DEC-2018 21:18, Atrial fibrillation has replaced Sinus rhythm Vent. rate has increased BY [address] now depressed in Anterior leads T wave amplitude has decreased in Lateral leads Confirmed by Arun Juan ([id number] on 01/15/2022 2:33:56 PM Referred By: REFERRED SELF Confirmed By:Arun Juan
[2022-01-15] MEDS: cefTRIAXone SODIUM 1,000 MG in DEXTROSE 5% 50 ML IV SCH (15:26)
[2022-01-15] MEDS ORDERED: WARFARIN SOD 5 MG TAB PO SCH (16:00)
--- NOTE | 2022-01-15 18:53 | Hospitalist Progress Note ---
Date of Service January 15, 2022 Assessment & Plan (1) Left low back pain: (2) New onset a-fib: (3) COPD (chronic obstructive pulmonary disease): (4) Chronic anticoagulation: (5) History of pulmonary embolism: Plan: This is a 71-year-old female who has significant past medical history of PE anticoagulated with warfarin, COPD, history of SVT, HLD, cervical and lumbar spine degenerative disease, osteoporosis, positive lupus anticoagulant, tobacco use history, depression who presents to ED due to worsening low back pain radiated to her both tights Left-sided low back pain Ambulatory dysfunction Nausea/Vomiting Doubt symptoms related to UTI Completed 7 days course of [address] CT Lumbar spine showed Degenerative changes as above with posterior annular disc bulge at L4-L5 resulting in moderate central canal stenosis, moderate right and severe left neural foraminal narrowing. UA negative for UTI and urine cx no growth Currently on IV ceftriaxone Continue pain management with lidocaine patch and oxycodone Ortho consulted recommended non urgent MRI and follow up with ortho outpatient Atrial Fibrillation with RVR New episode of Afib Converting to NSR around 3pm today cardiology on board Echo showed mild concentric left ventricular hypertrophy with ejection fraction 60 to 65% IV amiodarone drip discontinued today On Coumadin for history of PE Coumadin on hold due to INR 3.9 Continue metoprolol 25mg BID COPD w/ exac Emphysema CXR showed emphysematous change with no acute cardiopulmonary abnormality identified. Increased productive cough x 3-4 weeks Procalcitonin normal and sputum culture grew normal shae Pt advised to take her advair bid consistently, prn albuterol Continue prednisone and doxycycline for now Hx of PE Chronic Anticoagulation Subtherapeutic INR pt missed dose on 01/11 due to being in ER all evening Hold coumadin due to INR 3.9 Hx of TIA/cva continue statin, asa DVT ppx: coumadin on Hold with INR 3.9 DNR/DNI Disposition Continue monitor in PCU Admission and Anticipated Discharge Date Admission Date: January 14, 2022 Subjective Pt was seen and evaluated for follow up of chest pain and afib Lying in bed with no acute distress Pt said that low back pain improved She was converted back to NSR around 3PM Denies any chest pain, palpitation, dizziness and SOB Review of Systems Review of Systems: All systems reviewed & are unremarkable except as noted in Subjective Physical Exam 2 Physical Exam: General- No acute distress Head- atraumatic Eyes- PERRL, EOMI, ENT- oropharynx clear Neck- supple, no JVD Lungs- clear to auscultation Heart- no murmur Abdomen- normal bowel sounds, soft, nontender Extremities- no calf tenderness Neuro- alert, oriented x 3; PERRL, EOMI; no facial palsy; no dysarthria Skin- warm & dry Results & Data Results & Data ([facility]) Vital Signs (Past 12 Hours) Vital Signs Temp Pulse Pulse Resp BP Pulse Ox 01/15/22 15:25 36.6 C 65 18 132/70 95 01/15/22 14:18 67 01/15/22 11:51 36.7 C 78 18 118/73 95 01/15/22 08:23 36.8 C 87 18 149/94 H 95 01/15/22 08:00 83 (1) COPD (chronic obstructive pulmonary disease) COPD type: unspecified COPD Qualified Code(s): J44.9 - Chronic obstructive pulmonary disease, unspecified
[2022-01-15] MEDS: DULoxetine HCL 60 MG CAP PO SCH (20:26)
[2022-01-16] MEDS: DOXYCYCLINE HYCLATE 100 MG in DEXTROSE 5% 100 ML IV SCH (06:07)
[2022-01-16 06:23] LABS: Hematocrit (blood only) 37.1 % (37-47); Hemoglobin 11.8 g/dL (12.0-16.0); Mean Corpuscular Hemoglobin 30.3 pg (25-34); Mean Corpuscular Hgb Conc 31.8 g/dL (32-36); Mean Corpuscular Volume 95.4 fL (80-100); Mean Platelet Volume 8.9 fL (7.4-10.4); Platelet Count 253 K/uL (130-400); RDW Coefficient of Variation 13.7 % (11.5-14.5); RDW Standard Deviation 47.3 fL (36.4-46.3); Red Blood Count 3.89 M/uL (4.2-5.4); White Blood Count 9.87 K/uL (4.8-10.8)
[2022-01-16 06:38] LABS: INR 2.5 (0.9-1.1); Prothrombin Time 25.7 Seconds (9.0-12.0)
[2022-01-16] MEDS: ACETAMINOPHEN 325 MG TAB PO SCH ×3 (07:44→16:31)
[2022-01-16] MEDS: predniSONE 20 MG TAB PO SCH (07:45)
[2022-01-16] MEDS: FLUTICASONE/VILANTEROL 100/25MCG 14 PUFFS/INHALER INH SCH (07:45)
[2022-01-16] MEDS: CALCIUM CARBONATE 1250MG TAB PO SCH (07:45)
[2022-01-16] MEDS: GABAPENTIN 300 MG CAP PO SCH (07:45)
[2022-01-16] MEDS: ASPIRIN 81 MG ECTAB PO SCH (07:46)
[2022-01-16] MEDS: ATORVASTATIN 40 MG TAB PO SCH (07:46)
[2022-01-16] MEDS: CHOLECALCIFEROL 1,000 UNITS 25 MCG TAB PO SCH (07:46)
[2022-01-16] MEDS: busPIRone 5 MG TAB PO SCH (07:46)
[2022-01-16] MEDS: METOPROLOL TARTRATE 25 MG TAB PO SCH (07:47)
[2022-01-16] MEDS ORDERED: DOXYCYCLINE HYCLATE 100 MG CAP PO SCH (10:00)
--- NOTE | 2022-01-16 11:26 | Cardiology Progress Note ---
Date of Service January 16, 2022 Assessment & Plan (1) New onset a-fib: (2) History of pulmonary embolism: (3) TIA (transient ischemic attack): Plan: 71-year-old patient mated with new onset atrial fibrillation with rapid ventricular response. Spontaneously converted to sinus rhythm yesterday. Intravenous amiodarone discontinued. Recommend continuing beta-marcos therapy. She may transition to Toprol-XL 50 mg daily.chronic warfarin anticoagulation for goal INR of 2.0-3.0. Patient may be discharged from a cardiovascular perspective. Outpatient cardiology follow-up in 2-4 weeks. Admission and Anticipated Discharge Date Admission Date: January 14, 2022 Subjective Patient seen examined the bedside. Feeling well from a cardiovascular pe rspective. Converted to sinus rhythm yesterday at approximately 1 PM. Remains in sinus rhythm. Intravenous amiodarone discontinued. Denies chest pain or palpitations. No orthopnea, PND, or edema. Review of Systems Review of Systems: All systems reviewed & are unremarkable except as noted in Subjective Physical Exam Constitutional: well nourished; no acute distress Respiratory: normal respiratory effort; no respiratory distress, no labored breathing and no retractions Auscultation: lungs clear to auscultation bilaterally; no crackles, no rales, no rhonchi and no wheezes Cardiovascular: Rate/Rhythm: regular rate Heart Sounds: normal S1 and normal S2 Vessels: radial pulses present; no JVD and no carotid bruit Extremities: no edema Gastrointestinal (Abdomen): Inspection/Auscultation: normal bowel sounds; abdomen not distended Percussion/Palpation: abdomen soft; abdomen nontender, no guarding and abdomen not rigid Neurologic: CN's II-XI intact bilaterally and moves all extremities; no focal motor deficits Motor/Sensory: no tremor Psychiatric: A+Ox3, euthymic affect Results & Data ([facility]) Vital Signs (Past 12 Hours) Vital Signs Temp Pulse Pulse Resp BP Pulse Ox Pulse Ox 01/16/22 07:56 36.8 C 62 17 133/71 97 01/16/22 03:10 36.7 C 63 18 137/71 96 01/16/22 01:00 96 01/16/22 00:00 62
[2022-01-16] MEDS: LIDOCAINE 5% 1 PATCH TD SCH (11:43)
[2022-01-16] MEDS: cefTRIAXone SODIUM 1,000 MG in DEXTROSE 5% 50 ML IV SCH (16:43)
--- NOTE | 2022-01-21 14:43 | Discharge Summary ---
Date of Service January 16, 2022 Admission HPI Per Admitting Provider This is a 71-year-old female who has significant past medical history of PE anticoagulated with warfarin, COPD, history of SVT, HLD, cervical and lumbar spine degenerative disease, osteoporosis, positive lupus anticoagulant, tobacco use history, depression who presents to ED due to worsening flank pain x2 weeks. Of significance patient was initially seen in urgent care on 12/26/2021 secondary to dysuria, increased urgency and frequency with urination and hematuria. She also complained of mild urinary incontinence, but this is chronic for her. She was treated with a 7-day course of amoxicillin. She was supposed to follow-up with PCP in clinic; however, appointment got canceled and therefore she did not follow-up. Per [facility] urine culture from 12/26 was negative but did show moderate microscopic hematuria. Her symptoms since progressed over the last 2 weeks with the development of left-sided, "flank pain." She describes the pain as flank pain, but points to her left low back. She denies any recent injury, fall, trauma or lifting anything heavy. After taking antibiotics her urinary symptoms did subside, but did not go away altogether. Her pain is constant, is worse with movement and coughing, is improved with lying on her right side, is not improved with Tylenol or Advil, has not had this pain in the past, is not made worse with inspiration and pain does not radiate. She also complains of suprapubic and bilateral lower quadrant abdominal pressure, but not adrienne pain. According to her son who was at bedside on 01/11 patient was in tears due to the severity of her pain. He describes her as a, "tough old lady." He opted to bring her to ER for further evaluation. During that visit her urinalysis showed trace leukocytes but otherwise no bacteria. A culture was not obtained. CT abdomen pelvis was also obtained which was negative for acute infectious finding, but did show tiny foci of gas within the bladder lumen. Also noted was a subcapsular change of the left kidney similar to prior studies relating to a remote subscapular hemorrhage. During that visit she was afebrile and white count was WNL. It was felt that maybe she was developing pyelonephritis and was started on IV Rocephin. It was recommended she be admitted to hospital however patient refused. She was discharged home on oral Zofran and cefdinir. Unfortunately left-sided pain worsened and she developed continue nausea, vomiting and unable to keep anything down including her antibiotics. Her pain now is radiating to her right low back and therefore son brought her back to ED. She denies any fever, chills, sweats, lightheadedness, chest pain, worsening shortness of breath, hemoptysis, abdominal pain, hematuria, melena or hematochezia. She does have chronic dizziness and off-balance sensation which she feels is at baseline. She also has chronic shortness of breath in relation to her COPD. She does feel she is increasing her albuterol intake to 2-3 times a week. She also has chronic constipation for which she takes a enema every 3 to 4 days. In ED today she remains hemodynamically stable and afebrile. She continues to have a white count within normal limits. Her CBC and CMP are relatively unremarkable. Her INR is mildly subtherapeutic at 1.9. Her urinalysis is currently pending. Repeat CT abdomen pelvis was negative for any acute findings. She received IV antiemetics, pain medications and IV fluids when in ED. Admission Exam Per Admitting Provider Constitutional: WD/WN, elderly, female, vitals as above, NAD, sitting up in bed, pleasant, conversing easily Head: Normocephalic, Atraumatic Eyes: PERRL, conjunctivae normal, anicteric sclerae ENMT: external ear and nose normal, oropharynx normal Neck: trachea midline, no thyromegaly normal visual inspection Respiratory: normal respiratory effort, lungs clear to auscultation, rhonchi noted right middle lobe cleared with coughing, no wheeze or Rales. Normal insp/exp effort, no accessory muscle use Cardiovascular: RRR, no murmur, no edema Vessels: no JVD or carotid bruit Chest: normal inspection of chest Abdomen: normal bowel sounds, soft, nontender, no hepatosplenomegaly Musculoskeletal: no cyanosis or clubbing, extremities motor strength 5/5 , positive straight leg raise to left lower extremity Skin: no rashes, warm and dry normal turgor Neurologic: PERRL, EOMI, accommodation nl, no face palsy, no dysarthria CN's II-XI intact bilaterally and moves all extremities Psychiatric: A+Ox3, euthymic affect Lymphatic: no cervical or axillary lymphadenopathy : deferred Principal Diagnosis Left low back pain: New onset a-fib: COPD (chronic obstructive pulmonary disease): Chronic anticoagulation: History of pulmonary embolism: Chronic Anticoagulation Subtherapeutic INR Discharge Exam General- No acute distress Head- atraumatic Eyes- PERRL, EOMI, ENT- oropharynx clear Neck- supple, no JVD Lungs- clear to auscultation Heart- no murmur Abdomen- normal bowel sounds, soft, nontender Extremities- no calf tenderness Neuro- alert, oriented x 3; PERRL, EOMI; no facial palsy; no dysarthria Skin- warm & dry Discharge Data Allergies Allergy/AdvReac Type Severity Reaction Status Date / Time Iodinated Contrast Media Allergy Intermediate HIVES Verified 01/13/22 13:04 Consultations 01/13/22 13:21 ED Decision to Admit Stat 01/13/22 18:42 Consult Orthopedic Surgery Routine 01/14/22 01:23 Consult Cardiology Routine Ordered Studies 01/13/22 11:14 CT abd pelvis wo con Stat 01/13/22 13:54 CT lumbar spine wo con Stat CT thoracic spine wo con Stat US renal/blad retro comp Stat CT thoracic spine wo con HISTORY: 71 years-old Female pain acute mid back pain COMPARISON: CT lumbar spine and CT abdomen and pelvis studies of same day, thoracic spine radiographs 10/09/2018, CTA chest 09/10/2018 TECHNIQUE: Multiple axial CT images of the thoracic spine were obtained without contrast. A dose lowering technique was used consistent with the principals of ALARA. FINDINGS: Demineralized appearance of the bones. No acute fracture, subluxation, destructive bone lesions or endplate erosions. Mild multilevel intervertebral disc space narrowing with mild to moderate spondylitic spurring and facet arthrosis. Evaluation of the central canal and neural foramina is better assessed by MRI. Is a posterior bridging osteophyte/disc osteophyte complex noted at the T3-T4 level which flattens the ventral thecal causing mild central canal stenosis. No high-grade central canal stenosis identified. Chronic subcapsular changes of the left kidney. Bilateral adrenal gland adenomas are redemonstrated measuring up to 3 cm. Coronary artery calcifications. 1.2 cm hypodense left thyroid nodule. Mild subsegmental dependent bibasilar atelectasis with associated bronchial wall thickening. Mild emphysema. Calcified granuloma of the left lower lobe. IMPRESSION: 1. No acute fracture or subluxation of the thoracic spine. 2. Degenerative changes as above with posterior disc osteophyte complex at T3-T4 resulting in mild central canal stenosis. ACT 112: Negative or not required by law. The above report was generated using voice recognition software. It may contain grammatical, syntax or spelling errors. Electronically signed by: Alexei Francisco M.D. 01/13/2022 3:22 PM Dictated:01/13/22 1512 Transcribed: 01/13/22 1515 US renal/blad retro comp CLINICAL HISTORY: Flank pain. Evaluate for perinephric hematoma.. COMPARISON: CT of the abdomen and pelvis from 01/13/2022 TECHNIQUE: Multiple grayscale and color images of the kidneys and bladder. FINDINGS: Right kidney: The kidney is normal in size and echogenicity. There is no evidence for renal calculus or hydronephrosis. There is no evidence for solid renal mass. There is no evidence for medical renal disease. The kidney measures 10.7 cm in greatest length. Left kidney: The kidney is normal in size and echogenicity. There is no evidence for renal calculus or hydronephrosis. There is no evidence for solid renal mass. Minimal calcification is again seen at the renal margin from old resolved perinephric hematoma. There is no evidence for medical renal disease. The kidney measures 11.3 cm in greatest diameter. Bladder: Limited images of the bladder demonstrate no gross abnormality. IMPRESSION: 1. Essentially negative bilateral renal ultrasound as described. ACT 112: Negative or not required by law. Electronically signed by: Hill Mae M.D. 01/13/2022 3:36 PM Dictated:01/13/22 1531 Transcribed: 01/13/[address] lumbar spine wo con HISTORY: 71 years-old Female pain acute low back and bilateral flank pain COMPARISON: CT abdomen and pelvis of same day, 12/15/2018. TECHNIQUE: Multiple axial CT images of the lumbar spine were obtained without the use of IV contrast. A dose lowering technique was used consistent with the principals of JOJO. FINDINGS: Chronic subcapsular changes of the left kidney suggestive of a remote subcapsular hemorrhage. Bilateral adrenal gland adenomas measuring up to approximately 3 cm are redemonstrated. Atherosclerosis of the aorta. No lymphadenopathy. Mild bibasilar atelectasis. No paravertebral edema identified. Mostly mild multilevel intervertebral disc space narrowing with moderate spondylitic spurring and facet arthrosis. Mild lumbar levoscoliosis. No acute fracture, subluxation or endplate erosion. Evaluation of the central canal and neural foramina is better assessed by MRI. Posterior annular disc bulge at L4-L5 conjunction with spondylitic spurring, ligamentum flavum thickening with moderate facet arthrosis results in moderate central canal stenosis with moderate right and severe left neural foraminal narrowing. Additional smaller posterior annular disc bulges are noted at several levels with at least mild multilevel neural foraminal stenosis. IMPRESSION: 1. No acute fracture or subluxation. 2. Degenerative changes as above with posterior annular disc bulge at L4-L5 resulting in moderate central canal stenosis, moderate right and severe left neural foraminal narrowing. 3. Chronic subcapsular changes of the left kidney. ACT 112: Negative or not required by law. The above report was generated using voice recognition software. It may contain grammatical, syntax or spelling errors. Electronically signed by: Alexei Francisco M.D. 01/13/2022 2:13 PM Dictated:01/13/22 1405 Transcribed: 01/13/221404 SINGLE VIEW CHEST CLINICAL HISTORY: Cough. COPD. Atypical chest pain FINDINGS: An AP, portable, upright chest radiograph is compared to study dated 12/15/2018 and correlated with chest CT dated 09/10/2018. The examination is degraded by portable technique and apical lordotic positioning. The heart is top normal for projection noting atherosclerotic calcification of the thoracic aort a. Emphysema and chronic interstitial thickening is similar to previous. Scarring/atelectasis is noted at the lung bases. The lungs and pleural spaces are otherwise clear. No pneumothorax is seen. The skeletal structures are osteopenic. The bony thorax is grossly intact. IMPRESSION: Emphysematous change with no acute cardiopulmonary abnormality identified. ACT 112: Negative or not required by law. Electronically signed by: Volodymyr Roldan M.D. 01/13/2022 2:21 PM Dictated:01/13/22 1419 Transcribed: 01/13/221418 ADDENDUM Bilateral adrenal adenomas are also again seen. Electronically signed by: Hill Mae M.D. 01/13/2022 3:[address] abd pelvis wo con CLINICAL HISTORY: bilat flank pain, vomiting. recent L kid infection COMPARISON STUDY: 01/11/2022 CT DOSE: 719.08 mGycm TECHNIQUE: Standard CT of the Abdomen and Pelvis was performed without IV contrast. The patient did not receive oral contrast. A dose lowering technique was utilized adhering to the principles of ALARA. FINDINGS: Lung base: The lung bases are clear. Abdominal cavity: There is no evidence for abdominal mass, adenopathy or ascites. Liver: The liver is homogeneous in attenuation on these limited noncontrast images..There is mild hepatomegaly. Spleen: The spleen is homogeneous in attenuation on these limited noncontrast images. Pancreas: The pancreas is homogeneous in attenuation on these limited noncontrast images. Gall Bladder: The gallbladder is well distended with no evidence for cholelithiasis, wall thickening or pericholecystic edema.. Adrenal glands: The adrenal glands are normal in size and attenuation on these limited noncontrast images. Kidneys: There is no change in appearance of the kidneys with no perinephric inflammatory changes seen. Calcification is again seen involving the margin of the left kidney characteristic of an old subcapsular hematoma. There is no evidence for gross renal mass, calculus or hydronephrosis bilaterally. Bowel: The bowel loops are normally placed within the abdomen and pelvis without evidence for dilatation or obstruction. There is no evidence for mass lesion. There are no inflammatory changes present. There is no evidence for free air. There is a normal appendix in the right lower quadrant. Bladder: There is no evidence for focal bladder wall thickening, calculus or diverticulum. : There is no evidence for pelvic mass or adenopathy. Vasculature: There is no evidence for focal aneurysmal dilatation of the abdominal aorta. Atherosclerotic calcification is present. Osseous structures: There is no acute osseous pathology. Degenerative changes seen within the spine with evidence for at least mild lumbar canal stenosis IMPRESSION: 1. No acute intra-abdominal or pelvic abnormality on these limited noncontrast images. 2. No significant interval change from the previous study. 3. No evidence for renal calculus or hydronephrosis. 4. Degenerative changes lumbar spine with evidence for lumbar canal stenosis. 5. Additional nonacute findings are delineated above. ACT 112: Negative or not required by law. Electronically signed by: Hill Mae M.D. 01/13/2022 12:29 PM Dictated:01/13/22 1222 Transcribed: 01/13/22 1222 Hospital Course (1) Left low back pain: (2) New onset a-fib: (3) COPD (chronic obstructive pulmonary disease): (4) Chronic anticoagulation: (5) History of pulmonary embolism: This is a 71-year-old female who has significant past medical history of PE anticoagulated with warfarin, COPD, history of SVT, HLD, cervical and lumbar s pine degenerative disease, osteoporosis, positive lupus anticoagulant, tobacco use history, depression who presents to ED due to worsening low back pain radiated to her both tights Left-sided low back pain Ambulatory dysfunction Nausea/Vomiting Doubt symptoms related to UTI Completed 7 days course of Amoxicillin CT Lumbar spine showed Degenerative changes as above with posterior annular disc bulge at L4-L5 resulting in moderate central canal stenosis, moderate right and severe left neural foraminal narrowing. UA negative for UTI and urine cx no growth Currently on IV ceftriaxone Continue pain management with lidocaine patch and oxycodone Ortho consulted recommended non urgent MRI and follow up with ortho outpatient Atrial Fibrillation with RVR New episode of Afib Converting to NSR around 3pm today cardiology on board Echo showed mild concentric left ventricular hypertrophy with ejection fraction 60 to 65% IV amiodarone drip discontinued today On Coumadin for history of PE Coumadin on hold due to INR 3.9 Continue metoprolol 25mg BID Follow up with [facility] cardiology in 2-4 weeks (please call to schedule for the appointment) Follow up with the coumadin clinic to monitor your PT/INR COPD w/ exac Emphysema CXR showed emphysematous change with no acute cardiopulmonary abnormality i dentified. Increased productive cough x 3-4 weeks Procalcitonin normal and sputum culture grew normal shae Pt advised to take her advair bid consistently, prn albuterol Continue prednisone and doxycycline for now Hx of PE Chronic Anticoagulation Subtherapeutic INR pt missed dose on 01/11 due to being in ER all evening Coumadin resumed with INR 2.5 today Hx of TIA/cva continue statin, asa Adrenal Adenoma CT showed Bilateral adrenal adenoma Continue monitor oupatient DVT ppx: coumadin with INR 2.5 DNR/DNI Disposition Discharge home today Total Time Total Time Spent Total Time Spent (In Minutes): 35 minutes Discharge Plan Discharge Items Patient Disposition: Home - Self-Care Reason For Visit: BILATERAL FLANK PAIN Discharge Diagnosis: Left low back pain: New onset a-fib: COPD (chronic obstructive pulmonary disease): Chronic anticoagulation: History of pulmonary embolism: Chronic Anticoagulation Subtherapeutic INR Activity: Resume your previous activity Non-emergency contact: Primary Care Provider and [employer] Operator Call non-emergency contact if: you have any medication questions, your symptoms worsen and your pain is worsening Follow-up/Referrals: Brett Pizarro MD [Primary Care Provider] - Diet: Heart Healthy Addtl Attending Provider Instructions: Your were admitted to the hospital for atrial fibrillation with rapid ventricula r rate ( irregular heart rate with elevated heart rate). You heart rhythm was converted back to normal rate and rhythm. You need to follow up with your primary care provider within 1 week (please call to schedule for the appointment) Follow up with [facility] cardiology in 2-4 weeks (please call to schedule for the appointment) Follow up with the coumadin clinic to monitor your PT/INR For your low back pain follow up with [facility]. Marinelli Complete the course of the antibiotic Fall precaution Pending Studies at Discharge: No Stand-Alone Forms: My [facility] [employer], Smoking Cessation Medications and DC Order Prescriptions: New prednisone 20 mg Tablet 20 mg PO DAILY Qty: 2 RF: 0 metoprolol succinate [Toprol XL] 50 mg tablet extended release 24 hr 50 mg PO DAILY Qty: 30 RF: 0 Continued calcium carbonate [Calcium 600] 600 mg calcium (1,500 mg) Tablet 600 mg PO QAM RF: 0 cholecalciferol (vitamin D3) 1,000 unit Tablet 1,000 unit PO QAM RF: 0 omeprazole 20 mg capsule,delayed release(DR/EC) 20 mg PO DAILY PRN (Reason: Gi Upset) RF: 0 warfarin 5 mg tablet 5 mg PO 4XWK RF: 0 warfarin 5 mg tablet 7.5 mg PO 3XWK RF: 0 fluticasone propion-salmeterol [Advair Diskus] 250-50 mcg/dose Blister With Device 1 inh INHALATION Q12H PRN (Reason: Shortness Of Breath Or Wheezing) RF: 0 albuterol sulfate [Ventolin HFA] 90 mcg/actuation Hfa Aerosol Inhaler 2 puff INHALATION Q6H PRN (Reason: Shortness Of Breath) RF: 0 buspirone 5 mg tablet 10 mg PO BID RF: 0 gabapentin 300 mg capsule 300 mg PO BID RF: 0 ondansetron 4 mg tablet,disintegrating 4 - 8 mg PO Q8H PRN (Reason: nausea and vomiting) Qty: 14 RF: 0 oxycodone 5 mg tablet 5 mg PO Q6H PRN (Reason: pain) Qty: 12 RF: 0 acetaminophen [Tylenol Extra Strength] 500 mg Tablet 500 mg PO Q6H PRN (Reason: Pain) RF: 0 aspirin 81 mg Tablet,Delayed Release (Dr/Ec) 81 mg PO DAILY RF: 0 lorazepam 0.5 mg Tablet 0.5 mg PO HS PRN (Reason: Insomnia) RF: 0 duloxetine 60 mg Capsule,Delayed Release(Dr/Ec) 60 mg PO HS RF: 0 atorvastatin 40 mg Tablet 40 mg PO QAM RF: 0 Discontinued cefdinir 300 mg capsule 300 mg PO BID 10 Days Qty: 20 RF: 0 Discharge Orders: Discharge Order (Routine); Ordered 01/16/22 Ordered By: Min Voss Admission Data Admit Date/Time: 01/14/22 22:08 Attending Provider: Min Voss Admit Provider: Lavell Kemp Primary Care Provider: Brett Pizarro Other Providers: Lavell Kemp ; Sergio Bland ; Carlos Guerrero ; Everett Marinelli ; Christophe Banks Other Interventions: Discharge Summary Assessment (RN) Last Done: 01/16/22 17:23
== END 2022-01-16 17:45 | disposition home or self-care (01) | DRG 552 ==
LOC: 3N 10:23 → ED 10:23 → SUATTDRO 13:15 → 3N 14:55 → 2S 01-14 00:52

== ENCOUNTER 2023-02-27 09:03 | Observation (INO) ==
--- NOTE | 2023-01-17 12:21 | PAT Medication Instructions ---
Medication Instructions Date of Service January 17, 2023 Home Medications Medication Instructions Recorded ondansetron 4 mg disintegrating 4 - 8 mg PO Q8H PRN nausea and 01/12/22 tablet vomiting #14 tabs oxycodone 5 mg tablet 5 mg PO Q6H PRN pain #12 tabs 01/12/22 albuterol sulfate 90 mcg/actuation aerosol inhaler (Ventolin HFA) 2 puff inhalation Q6H PRN Shortness Of Breath calcium carbonate 600 mg calcium (1,500 mg) tablet (Calcium) 600 mg PO QAM omeprazole 20 mg capsule,delayed release 10 mg PO QAM PRN Gi Upset warfarin 5 mg tablet 5 mg PO 4XWK warfarin 5 mg tablet 7.5 mg PO 3XWK atorvastatin 40 mg tablet 40 mg PO QAM duloxetine 60 mg capsule,delayed release 60 mg PO HS buspirone 5 mg tablet 10 mg PO BID gabapentin 300 mg capsule 300 mg PO TID ondansetron 4 mg disintegrating tablet 4 - 8 mg PO Q8H PRN nausea and vomiting oxycodone 5 mg tablet 5 mg PO Q6H PRN pain acetaminophen 500 mg tablet (Tylenol Extra Strength) 500 mg PO BID PRN Pain aspirin 81 mg tablet,delayed release 81 mg PO QAM alendronate 70 mg tablet 70 mg PO WK cefdinir 300 mg capsule 300 mg PO BID cholecalciferol (vitamin D3) 50 mcg (2,000 unit) capsule (Vitamin D3) 50 mcg PO QAM cyanocobalamin (vitamin B-12) 1,000 mcg tablet (Vitamin B-12) 1,000 mcg PO QAM enoxaparin 80 mg/0.8 mL subcutaneous syringe 80 mg subcut DAILY guaifenesin 600 mg tablet, extended release 12 hr (Mucinex) 600 mg PO BID PRN Congestion hydroxyzine HCl 10 mg tablet 10 mg PO TID indapamide 1.25 mg tablet 1.25 mg PO DAILY PRN Edema metoprolol succinate 50 mg tablet,extended release 24 hr (Toprol XL) 50 mg PO QAM tiotropium bromide 2.5 mcg/actuation mist for inhalation (Spiriva Respimat) 2 inh inhalation QAM Continue as directed alendronate 70 mg tablet 70 mg PO WK (do not take morning of surgery) cefdinir 300 mg capsule 300 mg PO BID ASK your prescriber and surgeon warfarin 5 mg tablet 5 mg PO 4XWK warfarin 5 mg tablet 7.5 mg PO 3XWK enoxaparin 80 mg/0.8 mL subcutaneous syringe 80 mg subcut DAILY (further recommendations will be made at upcoming [facility] appt) DO NOT take the morning of surgery calcium carbonate 600 mg calcium (1,500 mg) tablet (Calcium) 600 mg PO QAM cholecalciferol (vitamin D3) 50 mcg (2,000 unit) capsule (Vitamin D3) 50 mcg PO QAM cyanocobalamin (vitamin B-12) 1,000 mcg tablet (Vitamin B-12) 1,000 mcg PO QAM guaifenesin 600 mg tablet, extended release 12 hr (Mucinex) 600 mg PO BID PRN Congestion hydroxyzine HCl 10 mg tablet 10 mg PO TID indapamide 1.25 mg tablet 1.25 mg PO DAILY PRN Edema Take morning of surgery With a small sip of water, OTHERWISE NOTHING TO EAT OR DRINK AFTER MIDNIGHT: albuterol sulfate 90 mcg/actuation aerosol inhaler (Ventolin HFA) 2 puff inhalation Q6H PRN Shortness Of Breath (use if needed; please bring with you to hospital day of surgery if possible) omeprazole 20 mg capsule,delayed release 10 mg PO QAM PRN Gi Upset (if needed) atorvastatin 40 mg tablet 40 mg PO QAM buspirone 5 mg tablet 10 mg PO BID gabapentin 300 mg capsule 300 mg PO TID ondansetron 4 mg disintegrating tablet 4 - 8 mg PO Q8H PRN nausea and vomiting (if needed) oxycodone 5 mg tablet 5 mg PO Q6H PRN pain (if needed) acetaminophen 500 mg tablet (Tylenol Extra Strength) 500 mg PO BID PRN Pain (if needed) aspirin 81 mg tablet,delayed release 81 mg PO QAM (unless surgeon directed otherwise) metoprolol succinate 50 mg tablet,extended release 24 hr (Toprol XL) 50 mg PO QAM tiotropium bromide 2.5 mcg/actuation mist for inhalation (Spiriva Respimat) 2 inh inhalation QAM Take evening before surgery albuterol sulfate 90 mcg/actuation aerosol inhaler (Ventolin HFA) 2 puff inhalation Q6H PRN Shortness Of Breath duloxetine 60 mg capsule,delayed release 60 mg PO HS buspirone 5 mg tablet 10 mg PO BID gabapentin 300 mg capsule 300 mg PO TID ondansetron 4 mg disintegrating tablet 4 - 8 mg PO Q8H PRN nausea and vomiting (if needed) oxycodone 5 mg tablet 5 mg PO Q6H PRN pain (if needed) acetaminophen 500 mg tablet (Tylenol Extra Strength) 500 mg PO BID PRN Pain (if needed) guaifenesin 600 mg tablet, extended release 12 hr (Mucinex) 600 mg PO BID PRN Congestion (if needed) hydroxyzine HCl 10 mg tablet 10 mg PO TID indapamide 1.25 mg tablet 1.25 mg PO DAILY PRN Edema (if needed) Other Notes If you have any questions please call us at [phone] or [phone] or [phone] or [phone]
--- NOTE | 2023-01-25 10:34 | Anesthesiology Consultation ---
Date of Service January 25, 2023 Assessment & Plan (1) Encounter for pre-operative examination: - Check coags AM DOS (warfarin instructions per surgeon/prescriber. Per patient, plan for lovenox bridging- advised patient this needs to be stopped at least 24 hours prior to surgery in order for neuraxial anesthesia) - COVID screening: Per assessment on 01/25: No known COVID-19 positive contacts or current COVID-19 related symptoms. Travel screen negative. Patient vaccinated. At surgeon discretion if preop Covid testing being done. - Outpatient joint assessment: Pt currently scheduled for inpatient pathway. If surgeon requests review for outpatient joint pathway, patient is not recommended candidate for outpatient joint program from anesthesia standpoint. - Cardiology visit 02/28/2022: "Paroxysmally atrial fibrillation.. History of pulmonary emboli on chronic anticoagulation.. Currently the patient is in sinus rhythm. Her EKG today is essentially normal. I do not believe any additional cardiac workup or treatment is indicated at this time. She will continue her current medications and I have recommended that she have follow-up with her inte rnist for further medical care and guidance. She has a history of hemorrhoids which will be treated at [facility] in the future however, prior to proceeding she will need to have a colonoscopy which has not been scheduled. I believe she can proceed to the colonoscopy with an acceptable low risk of cardiovascular event. She is currently optimally medically managed and no additional cardiac testing will change the risk assessment.. We will see her on an as-needed basis." - Patient acceptable risk for surgery pending surgeon-ordered PCP preop evaluation (Katy, appt 02/13). Chart Review Chart Review: Patient seen in Pre Admission Testing Teaching & Discussion Pre-Anesthesia Teaching/Discussion Notes: Instructed NPO after midnight before surgery,except medications with 15 cc of water. Medication instructions provided according to the PAT guidelines. History Surgery Operation Date: 02/27/23 07:00 Proposed Procedures p Right Total Knee Arthroplasty - Jerald Thomson DO Height/Weight Height: 5 ft 4 in Weight: 73.4 kg Allergies Allergy/AdvReac Type Severity Reaction Status Date / Time Iodinated Contrast Media Allergy Intermediate Hives Verified 01/25/23 13:16 Medications Home Medications Medication Instructions Recorded Confirmed Last Taken albuterol sulfate 90 mcg/actuation 2 puff inhalation Q6H PRN 09/09/18 01/13/2301/11/22 aerosol inhaler (Ventolin HFA) Shortness Of Breath calcium carbonate 600 mg calcium 600 mg PO QAM 12/15/18 01/13/23 01/13/22 (1,500 mg) tablet (Calcium) omeprazole 20 mg capsule,delayed 10 mg PO QAM PRN Gi Upset 12/15/18 01/13/23 01/12/22 release warfarin 5 mg tablet 5 mg PO 4XWK 12/15/18 01/13/23 01/12/22 warfarin 5 mg tablet 7.5 mg PO 3XWK 12/15/18 01/13/23 01/11/22 atorvastatin 40 mg tablet 40 mg PO QAM 04/14/21 01/13/23 01/13/22 duloxetine 60 mg capsule,delayed 60 mg PO HS 04/14/21 01/13/23 01/12/22 release buspirone 5 mg tablet 10 mg PO BID 01/11/22 01/13/23 01/13/22 gabapentin 300 mg capsule 300 mg PO TID 01/11/22 01/13/23 01/13/22 ondansetron 4 mg disintegrating 4 - 8 mg PO Q8H PRN nausea and 01/12/22 01/13/23 01/13/22 05:30 tablet vomiting #14 tabs oxycodone 5 mg tablet 5 mg PO Q6H PRN pain #12 tabs 01/12/22 01/13/23 01/12/22 acetaminophen 500 mg tablet 500 mg PO BID PRN Pain 01/13/22 01/13/23 01/13/22 05:30 (Tylenol Extra Strength) 1000 mg aspirin 81 mg tablet,delayed 81 mg PO QAM 01/13/22 01/13/23 Unknown release alendronate 70 mg tablet 70 mg PO WK 01/13/23 01/13/23 Unknown cefdinir 300 mg capsule 300 mg PO BID 01/13/23 01/13/23 Unknown cholecalciferol (vitamin D3) 50 50 mcg PO QAM 01/13/23 01/13/23 Unknown mcg (2,000 unit) capsule (Vitamin D3) cyanocobalamin (vitamin B-12) 1,000 mcg PO QAM 01/13/23 01/13/23 Unknown 1,000 mcg tablet (Vitamin B-12) enoxaparin 80 mg/0.8 mL 80 mg subcut DAILY 01/13/23 01/13/23 Unknown subcutaneous syringe guaifenesin 600 mg tablet, 600 mg PO BID PRN Congestion 01/13/23 01/13/23 Unknown extended release 12 hr (Mucinex) hydroxyzine HCl 10 mg tablet 10 mg PO TID 01/13/23 01/13/23 Unknown indapamide 1.25 mg tablet 1.25 mg PO DAILY PRN Edema 01/13/23 01/13/23 Unknown metoprolol succinate 50 mg 50 mg PO QAM 01/13/23 01/13/23 Unknown tablet,extended release 24 hr (Toprol XL) tiotropium bromide 2.5 2 inh inhalation QAM 01/13/23 01/13/23 Unknown mcg/actuation mist for inhalation (Spiriva Respimat) Past Medical History Medical History A-fib Paroxysmal Follows with [facility] Taking warfarin Arthritis Chronic pain Emphysema lung History of pulmonary embolism 2018, Taking warfarin Hyperlipidemia Hypertension Lupus Memory loss Migraine Poor historian TIA (transient ischemic attack) 2019 Exercise / Class Metabolic Activity III < 4 Walking/Shop/Light housework Past Family History Family History Other Cancer Heart disease Hypertension No family history of adverse response to anesthesia Past Surgical History Surgical History History of arthroscopy of left shoulder History of arthroscopy of right shoulder History of bilateral cataract extraction History of sinus surgery History of tooth extraction all upper teeth History of total hysterectomy with bilateral salpingo-oophorectomy (BSO) S/P trigger finger release Right trigger finger release (04/29/21): MAC at [facility] Past Anesthesia History No Hx of Anesthesia Complications and No Family Hx of Anesthesia Complications History of PONV No Hx of PONV and No Hx of Motion Sickness Social History Smoking Status: Light tobacco smoker tobacco type: cigarettes Smoking cigarettes per day: 2 cigs/day Do You Dip or Chew Tobacco: No Hx Alcohol Use: No Hx Substance Use: No substance use type: does not use Review of Systems UTI- given rocephin 01/20/23 and rx'd cipro by PCP- currently still finishing abx. Symptoms currently significantly improved. Advised to contact PCP if symptoms not resolved with completion of abx. Patient denies chest pain, shortness of breath, fever, chills, cough, wheezing, palpitations. Physical Exam Vital Signs VITALS BP 103/65 P 80 TEMP 98.1 SP02 95%RA RESP 16 PHYSICAL Full cervical extension range of motion. Full TMJ range of motion. TMD 4 finger breaths Mallampati Score 1 Dentition: full upper plate, missing lower molars Lungs: clear throughout to auscultation Cardiac: regular rate and rhythm, no murmurs noted Spine: normal Carotid arteries: negative bruit Extremities: 1+ pitting LE edema Lab Results Anesthesia Preop Results Results Anesthesia Widget: WBC 8.87 K/ul (4.8-10.8) 01/25/23 Hgb 13.1 g/dl (12.0-16.0) 01/25/23 Hct 40.2 % (37.0-47.0) 01/25/23 Plt 313 K/uL (130-400) 01/25/23 PT 21.9 Seconds (9.0-12.0) H 01/25/23 PTT 37.3 Seconds (21.0-31.0) H 01/25/23 INR 2.1 (0.9-1.1) H 01/25/23 Blood Type O Positive 01/25/23 Antibody Screen NEGATIVE 01/25/23 Testing Laboratory Results 01/09/23 SODIUM 141 POTASSIUM 3.9 CHLORIDE 106 CO2 29 BUN 12 CREATININE 0.6 GLUCOSE 92 Electrocardiogram Date: 01/25/23 NSR at 80bpm. "Normal ECG" Echocardiogram Date: 01/15/22 EF 60 to 65%. There is no thrombus. LV wall motion is normal. Mild concentric LVH. Mild LAD. Mild AV sclerosis. Mild MR. Rhythm is A-fib with controlled ventricular response. Stress Test Date: 09/12/18 Type: DSE No echocardiographic or ECG evidence of myocardial ischemia having achieved heart rate adequate for diagnostic purposes. 92% MPHR. Occasional PVCs. Normal baseline ECG.Moderate concentric LVH. EF 60 to 65%. COVID-19 Risk Screen Screening Information COVID-19 Screen Date: 01/25/23 Exposure 21 Days Family/Household +COVID Last 21 Days: No Exposure 10 Days Any COVID Exposure Last 10 Days: No Symptoms Last 10 Days Experienced COVID Sx Last 10 Days: No + COVID 0-90 Days COVID + in Last 0-90 Days: No
--- NOTE | 2023-02-27 06:54 | History & Physical Report ---
Date of Service February 27, 2023 Assessment & Plan (1) Osteoarthritis of right knee: We will proceed with a right total knee arthroplasty. Postoperatively she will be started on bridging Lovenox and Coumadin and admitted to the hospital for postop medical management. She plans to go to [facility] upon discharge. History of Present Illness Chief Complaint: Osteoarthritis of the right knee. Primary Care Provider: Perfecto Sauceda DO Carmen is a pleasant 72-year-old female who has been dealing with chronic increasing right knee pain. X-rays and clinical examination had been diagnostic for advanced osteoarthritis of the right knee. After failing an extensive conservative treatment, including multiple injections, she has elected to proceed with a right total knee arthroplasty. . Allergies Allergy/AdvReac Type Severity Reaction Status Date / Time Iodinated Contrast Media Allergy Intermediate Hives Verified 01/25/23 13:16 Home Medications Medication Instructions Recorded Confirmed Type albuterol sulfate 90 mcg/actuation 2 puff inhalation Q6H PRN 09/09/18 01/13/23 History aerosol inhaler (Ventolin HFA) Shortness Of Breath calcium carbonate 600 mg calcium 600 mg PO QAM 12/15/18 01/13/23 History (1,500 mg) tablet (Calcium) omeprazole 20 mg capsule,delayed 10 mg PO QAM PRN Gi Upset 12/15/18 01/13/23 History release warfarin 5 mg tablet 5 mg PO 4XWK 12/15/18 01/13/23 History warfarin 5 mg tablet 7.5 mg PO 3XWK 12/15/18 01/13/23 History atorvastatin 40 mg tablet 40 mg PO QAM 04/14/21 01/13/23 History duloxetine 60 mg capsule,delayed 60 mg PO HS 04/14/21 01/13/23 History release buspirone 5 mg tablet 10 mg PO BID 01/11/22 01/13/23 History gabapentin 300 mg capsule 300 mg PO TID 01/11/22 01/13/23 History ondansetron 4 mg disintegrating 4 - 8 mg PO Q8H PRN nausea and 01/12/22 01/13/23 Rx tablet vomiting #14 tabs oxycodone 5 mg tablet 5 mg PO Q6H PRN pain #12 tabs 01/12/22 01/13/23 Rx acetaminophen 500 mg tablet 500 mg PO BID PRN Pain 01/13/22 01/13/23 History (Tylenol Extra Strength) aspirin 81 mg tablet,delayed 81 mg PO QAM 01/13/22 01/13/23 History release alendronate 70 mg tablet 70 mg PO WK 01/13/23 01/13/23 History cefdinir 300 mg capsule 300 mg PO BID 01/13/23 01/13/23 History cholecalciferol (vitamin D3) 50 50 mcg PO QAM 01/13/23 01/13/23 History mcg (2,000 unit) capsule (Vitamin D3) cyanocobalamin (vitamin B-12) 1,000 mcg PO QAM 01/13/23 01/13/23 History 1,000 mcg tablet (Vitamin B-12) enoxaparin 80 mg/0.8 mL 80 mg subcut DAILY 01/13/23 01/13/23 History subcutaneous syringe guaifenesin 600 mg tablet, 600 mg PO BID PRN Congestion 01/13/23 01/13/23 History extended release 12 hr (Mucinex) hydroxyzine HCl 10 mg tablet 10 mg PO TID 01/13/23 01/13/23 History indapamide 1.25 mg tablet 1.25 mg PO DAILY PRN Edema 01/13/23 01/13/23 History metoprolol succinate 50 mg 50 mg PO QAM 01/13/23 01/13/23 History tablet,extended release 24 hr (Toprol XL) tiotropium bromide 2.5 2 inh inhalation QAM 01/13/23 01/13/23 History mcg/actuation mist for inhalation (Spiriva Respimat) Past Med/Surg History Medical History A-fib Paroxysmal Follows with [facility] Taking warfarin Arthritis Chronic pain Emphysema lung History of pulmonary embolism 2019, Taking warfarin Hyperlipidemia Hypertension Lupus Memory loss Migraine Poor historian TIA (transient ischemic attack) 2019 Surgical History History of arthroscopy of left shoulder History of arthroscopy of right shoulder History of bilateral cataract extraction History of sinus surgery History of tooth extraction all upper teeth History of total hysterectomy with bilateral salpingo-oophorectomy (BSO) S/P trigger finger release Right trigger finger release (04/29/21): MAC at [facility] Family History Other Cancer Heart disease Hypertension No family history of adverse response to anesthesia Social History Smoking Status: Light tobacco smoker Cigarettes Per Day: 2 cigs/day; Second Hand Exposure: No; Do You Dip or Chew Tobacco: No; Hx Alcohol Use: No Hx Substance Use: No Preferred Language: Peruvian Communication Ability: Effective Visual Impairment: No Limitations Retail General 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 Physical Exam On physical examination of the right knee, she is range of motion from 0 to 120 degrees. No instability. Pain of the distal medial femoral condyle and over the medial joint line.. Constitutional WD/WN, vitals as above Eyes PERRL, conjunctivae normal, anicteric sclerae ENMT external ear and nose normal, oropharynx normal Neck trachea midline, no thyromegaly Respiratory normal respiratory effort, lungs clear to auscultation Cardiovascular RRR, no murmur, no edema Gastrointestinal (Abdomen) normal bowel sounds, soft, nontender, no hepatosplenomegaly Skin no rashes, warm and dry Psychiatric A+Ox3, euthymic affect Results & Data Results & Data Laboratory Results . Diagnostic Findings X-rays of the right knee show advanced osteoarthritis with joint space narrowing, osteophyte formation, and [id number]-[id number] articulation. PG Care Time/CCT Total # of Minutes Spent Total Time Spent with Patient: Total time spent is greater than 50% in coordination of care (as documented) at patient's floor/unit and/or counseling patient: Coding Level of Care Code None Diagnoses Osteoarthritis of right knee M17.11
[~2023-02-27 09:03] MED LIST changes: +ACETAMINOPHEN 500 MG TAB PO SCH; +BUPIVACAINE 0.5 % 5 MG/1 ML PF 10ML VIAL ONE; +FAMOTIDINE 20 MG TAB PO SCH; +GABAPENTIN 300 MG CAP PO SCH; -HydrALAZINE HCL 20 MG/ML VIAL IV PRN; -LABETALOL HCL IV 5 MG/ML 20ML IV PRN; +LR 500ML BOLUS, THEN 15ML/HR IV SCH; +LR 60ML/HR IV SCH; +ORTHO JOINT MIX INFIL SCH; +ROPIVACAINE 0.5% 5 MG/ML 30 ML VIAL ONE; -SODIUM CHLORIDE 0.9% 1000ML 1,000 ML IV SCH; +TRANEXAMIC ACID 1,000 MG **IV Intra-op IV SCH; +TRANEXAMIC ACID 1,000 MG **IV Pre-op IV SCH; +ceFAZolin 2000MG 2,000 MG/15 ML SYR IV SCH; +dexAMETHasone 4 MG TAB PO SCH
[2023-02-27] MEDS ORDERED: ORTHO JOINT ANESTHETIC ONE (10:05)
[2023-02-27] MEDS ORDERED: fentaNYL citrate PF 100 MCG/2 ML VIAL ONE (10:10)
[2023-02-27] MEDS ORDERED: MIDAZOLAM HCL 1 MG/ML 2ML VIAL ONE (10:10)
[2023-02-27] MEDS ORDERED: fentaNYL citrate PF 100 MCG/2 ML VIAL IV PRN (10:26)
[2023-02-27] MEDS ORDERED: ePHEDrine sulfate 50 MG/ML AMP IV PRN (10:26)
[2023-02-27] MEDS ORDERED: ONDANSETRON INJ 2 MG/ML 2 ML VIAL IV PRN ×2 (10:26→15:00)
[2023-02-27] MEDS ORDERED: ATROPINE SULFATE 0.1 MG/ML 10ML SYR IV PRN (10:26)
--- NOTE | 2023-02-27 10:26 | Anesthesiology Consultation ---
Date of Service February 27, 2023 Assessment & Plan Chart Review Chart Review: Acceptable Risk for Surgery Consults Requested none ASA ASA3 Proposed Anesthesia Anesthesia Type: MAC Spinal Regional Regional Laterality: Right Site: Adductor Canal Risk / Benefits Reviewed With: PT / POA / Parent / Guardian, Accepts Plan and Informed Consent Obtained History Surgery Operation Date: 02/27/23 12:00 Proposed Procedures p Right Total Knee Arthroplasty - Jerald Thomson, Height/Weight Height: 5 ft 4 in Weight: 75.313 kg Allergies Allergy/AdvReac Type Severity Reaction Status Date / Time Iodinated Contrast Media Allergy Intermediate Hives Verified 02/27/23 09:32 Medications Home Medications Medication Instructions Recorded Confirmed Last Taken albuterol sulfate 90 mcg/actuation 2 puff inhalation Q6H PRN 09/09/18 02/27/23 01/28/23 aerosol inhaler (Ventolin HFA) Shortness Of Breath calcium carbonate 600 mg calcium 600 mg PO QAM 12/15/18 02/27/23 02/27/23 08:30 (1,500 mg) tablet (Calcium) omeprazole 20 mg capsule,delayed 10 mg PO QAM PRN Gi Upset 12/15/18 02/27/23 02/27/23 08:30 release warfarin 5 mg tablet 5 mg PO 4XWK 12/15/18 02/27/23 02/21/23 warfarin 5 mg tablet 7.5 mg PO 3XWK 12/15/18 02/27/23 02/21/23 19:45 atorvastatin 40 mg tablet 40 mg PO QAM 04/14/21 02/27/23 02/27/23 08:30 duloxetine 60 mg capsule,delayed 60 mg PO HS 04/14/21 02/27/23 02/27/23 08:30 release buspirone 5 mg tablet 10 mg PO BID 01/11/22 02/27/23 02/27/23 08:30 gabapentin 300 mg capsule 300 mg PO TID 01/11/22 02/27/23 02/27/23 08:30 ondansetron 4 mg disintegrating 4 - 8 mg PO Q8H PRN nausea and 01/12/22 02/27/23 01/28/23 tablet vomiting #14 tabs oxycodone 5 mg tablet 5 mg PO Q6H PRN pain #12 tabs 01/12/22 02/27/23 01/12/22 acetaminophen 500 mg tablet 500 mg PO BID PRN Pain 01/13/22 02/27/23 02/26/23 23:00 (Tylenol Extra Strength) aspirin 81 mg tablet,delayed 81 mg PO QAM 01/13/22 02/27/23 02/27/23 08:30 release alendronate 70 mg tablet 70 mg PO WK 01/13/23 02/27/23 02/26/23 08:00 cefdinir 300 mg capsule 300 mg PO BID 01/13/23 02/27/23 02/27/23 08:30 cholecalciferol (vitamin D3) 50 50 mcg PO QAM 01/13/23 02/27/23 02/27/23 08:30 mcg (2,000 unit) capsule (Vitamin D3) cyanocobalamin (vitamin B-12) 1,000 mcg PO QAM 01/13/23 02/27/23 02/27/23 08:30 1,000 mcg tablet (Vitamin B-12) enoxaparin 80 mg/0.8 mL 80 mg subcut DAILY 01/13/23 02/27/23 02/26/23 16:00 subcutaneous syringe guaifenesin 600 mg tablet, 600 mg PO BID PRN Congestion 01/13/23 02/27/23 Unknown extended release 12 hr (Mucinex) hydroxyzine HCl 10 mg tablet 10 mg PO TID 01/13/23 02/27/23 02/27/23 08:30 indapamide 1.25 mg tablet 1.25 mg PO DAILY PRN Edema 01/13/23 02/27/23 02/27/23 08:30 metoprolol succinate 50 mg 50 mg PO QAM 01/13/23 02/27/23 02/27/23 08:30 tablet,extended release 24 hr (Toprol XL) tiotropium bromide 2.5 2 inh inhalation QAM 01/13/23 02/27/23 02/27/23 08:30 mcg/actuation mist for inhalation (Spiriva Respimat) Active Medications Generic Name Dose Route Start Last Admin Trade Name Freq PRN Reason Stop Dose Admin Acetaminophen 1,000 mg 02/27/23 06:00 02/27/23 10:06 Acetaminophen 500 Mg Tab PO 02/27/23 18:00 1,000 mg PREOP RAFY Administration Dexamethasone 8 mg 02/27/23 06:00 02/27/23 10:06 Dexamethasone 4 Mg Tab PO 02/27/23 18:00 8 mg PREOP RAFY Administration Famotidine 20 mg 02/27/23 06:00 02/27/23 10:06 Famotidine 20 Mg Tab PO 02/27/23 18:00 20 mg PREOP RAFY Administration Gabapentin 300 mg 02/27/23 06:00 02/27/23 10:07 Gabapentin 300 Mg Cap PO 02/27/23 18:00 300 mg PREOP RAFY Administration Lactated Ringer's 1,000 mls @ 15 mls/hr 02/27/23 06:00 02/27/23 10:07 Lr IV 02/27/23 18:00 15 mls/hr .Q24H RAFY Administration NPO Date Last Intake of Fluids: 02/26/23 Time Last Intake of Fluids: 23:30 Last Intake of Fluids Comment: 829 had taken meds. Date Last Intake of Solids: 02/26/23 Time Last Intake of Solids: 18:00 Past Medical History Medical History A-fib Paroxysmal Follows with [facility] Taking warfarin Arthritis Chronic pain Emphysema lung History of pulmonary embolism 2019, Taking warfarin Hyperlipidemia Hypertension Lupus Memory loss Migraine Poor historian TIA (transient ischemic attack) 2019 Exercise / Class Metabolic Activity III < 4 Walking/Shop/Light housework Past Family History Family History Other Cancer Heart disease Hypertension No family history of adverse response to anesthesia Past Surgical History Surgical History History of arthroscopy of left shoulder History of arthroscopy of right shoulder History of bilateral cataract extraction History of sinus surgery History of tooth extraction all upper teeth History of total hysterectomy with bilateral salpingo-oophorectomy (BSO) S/P trigger finger release Right trigger finger release (04/29/21): MAC at [facility] Past Anesthesia History No Hx of Anesthesia Complications and No Family Hx of Anesthesia Complications History of PONV No Hx of PONV and No Hx of Motion Sickness Social History Smoking Status: Light tobacco smoker tobacco type: cigarettes Smoking cigarettes per day: 2 cigs/day Do You Dip or Chew Tobacco: No Hx Alcohol Use: No Hx Substance Use: No substance use type: does not use Physical Exam Vital Signs Last Vital Signs Temp 98.1 F 02/27/23 09:43 Pulse 70 02/27/23 09:43 Resp 20 02/27/23 09:43 BP 109/66 02/27/23 09:43 Pulse Ox 97 02/27/23 09:43 O2 Del Method Room Air 02/27/23 09:43 ENMT Mouth: + dentures Thyromental Distance: > or= 3.5 Finger Breadths Mallampati Class: II Neck normal visual inspection Respiratory normal respiratory effort Auscultation: lungs clear to auscultation bilaterally Cardiovascular Rate/Rhythm: regular rate and regular rhythm Testing Electrocardiogram Date: 01/25/23 NSR at 80bpm. "Normal ECG" Echocardiogram Date: 01/15/22 EF 60 to 65%. There is no thrombus. LV wall motion is normal. Mild concentric LVH. Mild LAD. Mild AV sclerosis. Mild MR. Rhythm is A-fib with controlled ventricular response. Stress Test Date: 09/12/18 Type: DSE No echocardiographic or ECG evidence of myocardial ischemia having achieved heart rate adequate for diagnostic purposes. 92% MPHR. Occasional PVCs. Normal baseline ECG.Moderate concentric LVH. EF 60 to 65%.
[2023-02-27 10:37] LABS: Prothrombin Time 10.6 Seconds (9.0-12.0)
[2023-02-27] MEDS ORDERED: PROPOFOL IV EMULSION 10 MG/ML 20 ML VIAL IV ONE (12:01)
[2023-02-27] MEDS ORDERED: ONDANSETRON INJ 2 MG/ML 2 ML VIAL ONE (12:01)
--- NOTE | 2023-02-27 12:13 | Operative Report ---
PG Post Operative Report Pre & Post Diagnosis Operation Date: 02/27/23 12:00 Pre-Op Diagnosis: Right Knee Degenerative Joint Disease Post-Op Diagnosis: Right Knee Degenerative Joint Disease I identified the patient and participated in the time-out.: Yes Procedure Operation Date: 02/27/23 12:00 Actual Procedures p Right Total Knee Arthroplasty(Right) - Jerald Thomson DO Surgeon Jerald Thomson DO Stock Car Driver Jerald Gaines PA-C Estimated Blood Loss 30 Findings Consistent with Post-Op Diagnosis Specimens Right femoral and tibial bone Description of Procedure Implants used: I used a Sae Persona total knee arthroplasty system with a size 8 standard femur, the tibia, 34 oval patella, and a size 13 medial congruent polyethylene bearing. All components were cemented in place with Biomet cement. Carmen arrived [facility] for the above procedure. She was seen in the preoperative holding area and the operative extremity was identified and signed. She was given a preoperative antibiotic, TXA, a spinal anesthetic and an adductor nerve block. She was taken back to the operating room and laid on the table in supine position. She was given basic sedation. The operative knee was then prepped and draped in sterile fashion. A timeout was done, and the patient and the operative extremity was properly identified. A midline incision was made directly over the patella. Dissection was taken down to the extensor mechanism. A midvastus arthrotomy was used. The medial retinaculum was released and the fat pad was mostly excised. The knee was flexed and the ACL, PCL, and meniscus were removed. A drill was sent down the center of the femoral canal followed by an intramedullary janet. Off that janet a distal femoral cutting block was placed. 9 mm was resected off the distal femur at 5 of valgus. A posterior referencing AP sizing guide was then placed on the distal femur. The femur measured to be a size 8. 2 drill holes were placed in 3 of external rotation. A 4-in-1 cutting block was then impacted into place. Anterior, posterior, and chamfer cuts were then made. The proximal tibia was then exposed. An external tibial alignment guide was placed. A tibial cut guide was then anchored in place and the proximal tibia was then resected. The posterior aspect of the knee was then opened up and any additional meniscus fragments and osteophytes were removed. The tibia measured to be a size D. The tibial plate was then placed in the appropriate rotation and the tibia was drilled and punched. Trial components were then placed. I used a size 13 medial congruent 34 oval polyethylene insert. The knee was brought through a full range of motion and felt to be stable. The peg holes for the femoral component were then drilled. The patella was then everted and 9 mm was resected off the posterior aspect of the patella. The patella measured to be a size . 3 peg holes were then drilled. A trial patella was placed. The knee was once again brought through a full range of motion and felt to be stable. Trial components were then removed. The surrounding soft tissues were injected with 100 cc of an orthopedic pain control cocktail. All components were then cemented into place with Biomet cement. The final polyethylene insert was then snapped into place. Once cement was dry the tourniquet was deflated. Hemostasis was obtained. A dilute betadyne lavage was then done for 3 minutes. The joint was then irrigated with normal saline solution. The midvastus arthrotomy was then closed with #1 Vicryl suture. The skin was closed with 2-0 Vicryl, 3-0V lock suture, and edelmira. A soft compressive dressing was placed. She was then transferred to a hospital bed and taken to the postanesthesia care unit in stable condition. She tolerated the procedure well. Jerald Gaines PA-C, was present for the entire procedure. He was critical for patient positioning, prepping, draping, retraction exposure, wound closure and application of sterile dressing. I attest to the content of the Intraoperative Record and any orders documented therein. Any exceptions are noted below.
--- NOTE | 2023-02-27 13:04 | Anesthesiology Progress Note ---
Date of Service February 27, 2023 Anesthesia Post Procedure Vital Signs Vital Signs: Temp Pulse Pulse Resp BP Pulse Ox O2 Del Method 02/27/23 13:00 64 12 117/53 L 94 Room Air 02/27/23 12:50 63 12 115/60 99 Oxymask 02/27/23 12:40 72 17 123/65 100 Oxymask 02/27/23 12:30 97.0 F L 69 12 125/73 100 Oxymask 02/27/23 09:43 98.1 F 70 20 109/66 97 Room Air O2 Flow Rate 02/27/23 13:00 02/27/23 12:50 4 02/27/23 12:40 4 02/27/23 12:30 6 02/27/23 09:43 Transfer of Care Handoff Completed per policy Notes Mental Status: alert / awake / arousable and participated in evaluation Patient Amnestic to Procedure: Yes Nausea / Vomiting: adequately controlled Pain: adequately controlled Airway Patency, RR, SpO2: stable & adequate BP & HR: stable & adequate Hydration State: stable & adequate Neuraxial Anesthesia: was administered and sensory block is resolving Anesthetic Complications: no major complications apparent and Pt Satisfied with anesthetic care
--- NOTE | 2023-02-27 13:17 | XRay Report ---
TWO VIEWS RIGHT KNEE CLINICAL HISTORY: Postoperative examination. FINDINGS: AP and crosstable lateral portable views of the right knee are obtained. A right knee arthr oplasty is in near anatomic alignment. There has been undersurface remodeling of the patella. No acut e fracture is seen. There are expected postoperative changes around the knee including skin clips, so ft tissue edema, and subcutaneous gas. There is advanced atherosclerotic calcification of the poplite al artery. IMPRESSION: Expected postoperative changes status post right knee arthroplasty. No acute fracture is seen. ACT 112: Negative or not required by law. Electronically signed by: Volodymyr Roldan M.D. 02/27/2023 1:15 PM
[2023-02-27] MEDS ORDERED: ALBUTEROL HFA 8 GM INHALER INH PRN (15:00)
[2023-02-27] MEDS ORDERED: bisacodyL 10 MG SUPP PR PRN (15:00)
[2023-02-27] MEDS ORDERED: MAGNESIUM HYDROXIDE SUSP 30 ML UDC PO PRN (15:00)
[2023-02-27] MEDS ORDERED: INDAPAMIDE 1.25 MG TAB PO PRN (15:00)
[2023-02-27] MEDS ORDERED: SODIUM CHLORIDE 0.9% 1000ML 1,000 ML IV SCH (15:00)
[2023-02-27] MEDS ORDERED: NALOXONE HCL 0.4 MG/1 ML VIAL/CARP IV PRN (15:00)
[2023-02-27] MEDS ORDERED: METOCLOPRAMIDE HCL INJ 5 MG/ML 2 ML VIAL IV PRN (15:00)
[2023-02-27] MEDS ORDERED: guaiFENesin 600 MG TABCR PO PRN (15:00)
[2023-02-27] MEDS ORDERED: oxyCODONE HCL IR 5 MG TAB (IMMEDIATE RELEASE) PO PRN (15:00)
[2023-02-27] MEDS ORDERED: HYDROmorphone INJ 0.5 MG/0.5 ML SYR IV PRN (15:00)
[2023-02-27] MEDS ORDERED: PANTOprazole 40 MG TAB PO PRN (15:14)
[2023-02-27] MEDS: KETOROLAC TROMETHAMINE 15 MG/ML VIAL IV SCH ×2 (15:52→21:05)
[2023-02-27] MEDS: hydrOXYzine HCl 10 MG TAB PO SCH ×2 (15:53→21:04)
[2023-02-27] MEDS: ACETAMINOPHEN 500 MG TAB PO SCH ×2 (15:53→21:04)
[2023-02-27] MEDS: GABAPENTIN 300 MG CAP PO SCH ×2 (15:54→21:05)
[2023-02-27] MEDS ORDERED: WARFARIN SOD 5 MG TAB PO SCH (16:00)
[2023-02-27 18:02] LABS: Prothrombin Time 10.8 Seconds (9.0-12.0)
[2023-02-27] MEDS: ceFAZolin 2000MG 2,000 MG/15 ML SYR IV SCH (18:10)
[2023-02-27] MEDS ORDERED: DULoxetine HCL 60 MG CAP PO SCH (21:00)
[2023-02-27] MEDS ORDERED: SENNA 8.6 MG TAB PO SCH (21:00)
[2023-02-27] MEDS: DOCUSATE SODIUM 100 MG CAP PO SCH (21:04)
[2023-02-27] MEDS: busPIRone 5 MG TAB PO SCH (21:05)
[2023-02-28] MEDS: KETOROLAC TROMETHAMINE 15 MG/ML VIAL IV SCH ×3 (02:26→14:08)
[2023-02-28] MEDS: ceFAZolin 2000MG 2,000 MG/15 ML SYR IV SCH (02:27)
[2023-02-28] MEDS: ACETAMINOPHEN 500 MG TAB PO SCH ×2 (06:22→14:08)
--- NOTE | 2023-02-28 06:48 | Orthopedic Progress Note ---
Date of Service February 28, 2023 Assessment & Plan (1) Status post right knee replacement: Overall she is doing very well. She is not having much pain in the right knee. She will be seen by physical therapy today for ambulation and range of motion exercises. Her dressing can be changed after physical therapy. She is on Lovenox and Coumadin for DVT prophylaxis. She can be discharged home later today. She will follow-up with orthopedics in 2 weeks. Jessica Morales was seen and examined at bedside this morning. Overall she is doing very well. She is not having much pain in the right knee. She has been up and ambulating to the bathroom. She has no complaints.. Review of Systems All systems reviewed & are unremarkable except as noted in HPI & below. Physical Exam On physical examination of the right knee, the dressing is clean and dry. Her leg is out full extension. She has active dorsiflexion plantarflexion of her right ankle.. Results & Data Results & Data Laboratory Results . Diagnostic Findings Postoperative x-rays of the right ankle show the prosthesis to be in anatomic alignment without any evidence of fracture, education, or loosening.. PG Care Time/CCT Total # of Minutes Spent Total Time Spent with Patient: Total time spent is greater than 50% in coordination of care (as documented) at patient's floor/unit and/or counseling patient: Coding Level of Care Code 85527 Post Operative Follow-Up Diagnoses Status post right knee replacement Z96.651
--- NOTE | 2023-02-28 06:50 | Discharge Summary ---
Date of Service February 28, 2023 Admission HPI (Per Admitting) Carmen is a pleasant 72-year-old female who has been dealing with chronic increasing right knee pain. X-rays and clinical examination had been diagnostic for advanced osteoarthritis of the right knee. After failing an extensive conservative treatment, including multiple injections, she has elected to proceed with a right total knee arthroplasty. . Admission Exam (Per Admitting) On physical examination of the right knee, she is range of motion from 0 to 120 degrees. No instability. Pain of the distal medial femoral condyle and over the medial joint line.. Principal Diagnosis Same as "Discharge Diagnosis" noted below under Discharge Instructions. Discharge Exam On physical examination of the right knee, the dressing is clean and dry. Her leg is out full extension. She has active dorsiflexion plantarflexion of her right ankle.. Discharge Data Procedures Performed Operation Date: 02/27/23 12:00 Actual Procedures p Right Total Knee Arthroplasty(Right) - Jerald Thomson DO Ordered Studies 02/27/23 05:00 US - OR guided needle placemen Routine Hospital Course (1) Status post right knee replacement: On February 27 2023 Carmen arrived at [facility] and underwent a right knee replacement without complication. She had a spinal anesthetic. Postoperatively she was started on Lovenox and Coumadin for DVT prophylaxis and transferred to the general orthopedic floors. Her hospital course was uneventful. On postop day #1, her vital signs were stable and her pain was well controlled. She was able to participate well with physical therapy doing ambulation and range of motion exercises. She was then discharged home. She wi ll follow-up with orthopedics in 2 weeks. PG Care Time/CCT Total # of Minutes Spent Total Time Spent with Patient: Total time spent is greater than 50% in coordination of care (as documented) at patient's floor/unit and/or counseling patient: Discharge Plan Discharge Items Patient Disposition: Home - Home Health Services Reason For Visit: Right Knee Degenerative Joint Disease Discharge Diagnosis: Right knee replacement Activity: As commented below Non-emergency contact: Surgeon Call non-emergency contact if: your wound has increased redness and your wound has increased drainage Follow-up/Referrals: Perfecto Sauceda DO [Primary Care Provider] - Diet: Regular Addtl Attending Provider Instructions: Activity and Therapy Recommendations: * If you are using [facility] then therapy will be provided at your home until they feel you have accomplished all of your goals. * If you are using [facility] then Physical Therapy will be provided until they feel you are ready to start Outpatient Physical Therapy. * If you are not using home therapy then Outpatient Physical Therapy should start about 3-5 days from your day of surgery. Therapy will last about 6-10 weeks * It is important not to put a pillow under your knee when you are relaxing or sleeping. It is just as important to make sure you are getting your knee perfectly straight as it is to regain your knee bend. * You were shown a series of exercises in the hospital. Do these exercises three times each day including the exercises you were shown in physical therapy. * Get up and walk several times each day. For the first four weeks, try not to stand or walk for more than one hour at a time. If you do stand or walk for more than one hour, you will not hurt anything, but your leg will likely swell. * As you feel comfortable, you may change from the walker or crutches to a cane and then to independent walking. Medications: * Narcotic You will likely be sent home from the hospital with a prescription for the narcotic pain medication that worked best throughout your stay. * Take the bridging Lovenox and resume your Coumadin as prescribed by the anticoagulation clinic * Other medications may be prescribed for specific circumstances. If you have any questions, please call the office at . * Resume previous home medications unless otherwise instructed TEDs/Elastic Stockings: The white elastic stockings help limit swelling and prevent blood clots from forming in your legs.~ The more you wear them, the more they work. Wear them for six weeks. Dressing Care: The dressing can be changed after physical therapy on postop day #1. Daily dry dressing changes for a few days, especially if the incision is still draining some. If the incision is not draining then you may leave the edelmira open to air. If there is a little bit of drainage or if the edelmira are getting stuck on your clothing then cover the incision with a dry dressing. The edelmira will be removed at your 2 week follow-up appointment. Showering: You may shower 5 days from the day of surgery as long as the incision is no longer draining. You may shower with the edelmira exposed. Let soapy water run over the edelmira and pat them dry. Do not scrub or soak the incision. Things To Watch For: * Drainage from the incision site that occurs more than one week after your surgery. * Increased redness at the incision site. * Fever above 102 degrees Fahrenheit. * Unusual chest pain or shortness of breath. * Call [facility] at with any of the above problems Follow-Up Visit: Follow-up with Dr. Thomson's PA (Jerald Gaines) 2-3 weeks after your day of surgery. He will remove your edelmira and answer any questions. If you have any additional questions or concerns, Dr Thomson is usually in the office at the same time and will be available An appointment was probably scheduled when you signed-up for surgery in the office. If you have any questions call Office Instructions: More detailed instructions as well as Frequently Asked Questions were provided in a folder by our office when you signed-up for surgery. Please review these instructions when you get home. If you have any further questions or concerns, please feel free to call the office at [phone] Pending Studies at Discharge: No Stand-Alone Forms: [facility] Medications and DC Order Prescriptions: New oxycodone-acetaminophen 5-325 mg tablet 1 tab PO Q6H PRN (Reason: pain) Qty: 30 0RF Continued calcium carbonate [Calcium 600] 600 mg calcium (1,500 mg) Tablet 600 mg PO QAM omeprazole 20 mg capsule,delayed release(DR/EC) 10 mg PO QAM PRN (Reason: Gi Upset) warfarin 5 mg tablet 5 mg PO 4XWK Rx Instructions: TAKE 5MG warfarin 5 mg tablet 7.5 mg PO 3XWK Rx Instructions: TAKE 7.5 MG albuterol sulfate [Ventolin HFA] 90 mcg/actuation Hfa Aerosol Inhaler 2 puff INHALATION Q6H PRN (Reason: Shortness Of Breath) buspirone 5 mg tablet 10 mg PO BID gabapentin 300 mg capsule 300 mg PO TID ondansetron 4 mg tablet,disintegrating 4 - 8 mg PO Q8H PRN (Reason: nausea and vomiting) Qty: 14 0RF acetaminophen [Tylenol Extra Strength] 500 mg Tablet 500 mg PO BID PRN (Reason: Pain) aspirin 81 mg Tablet,Delayed Release (Dr/Ec) 81 mg PO QAM duloxetine 60 mg Capsule,Delayed Release(Dr/Ec) 60 mg PO HS atorvastatin 40 mg Tablet 40 mg PO QAM alendronate 70 mg Tablet 70 mg PO WK cyanocobalamin (vitamin B-12) [Vitamin B-12] 1,000 mcg Tablet 1,000 mcg PO QAM indapamide 1.25 mg tablet 1.25 mg PO DAILY PRN (Reason: Edema) cefdinir 300 mg capsule 300 mg PO BID enoxaparin 80 mg/0.8 mL Syringe 80 mg SUBCUT DAILY cholecalciferol (vitamin D3) [Vitamin D3] 50 mcg (2,000 unit) Capsule 50 mcg PO QAM Spiriva Respimat 2.5 mcg/actuation Mist 2 inh INHALATION QAM guaifenesin [Mucinex] 600 mg Tablet Extended Release 12hr 600 mg PO BID PRN (Reason: Congestion) metoprolol succinate [Toprol XL] 50 mg tablet extended release 24 hr 50 mg PO QAM hydroxyzine HCl 10 mg tablet 10 mg PO TID Discontinued oxycodone 5 mg tablet 5 mg PO Q6H PRN (Reason: pain) Qty: 12 0RF Admission Data Admit Date/Time: 02/27/23 12:33 Attending Provider: Jerald Thomson Admit Provider: Jerald Thomson Primary Care Provider: Perfecto Sauceda
[2023-02-28] MEDS: hydrOXYzine HCl 10 MG TAB PO SCH ×2 (07:37→14:10)
[2023-02-28] MEDS: busPIRone 5 MG TAB PO SCH (07:37)
[2023-02-28] MEDS: GABAPENTIN 300 MG CAP PO SCH ×2 (07:37→14:11)
[2023-02-28] MEDS: DOCUSATE SODIUM 100 MG CAP PO SCH (07:37)
[2023-02-28] MEDS ORDERED: dexAMETHasone 4 MG TAB PO SCH (08:00)
[2023-02-28 08:15] LABS: Prothrombin Time 10.8 Seconds (9.0-12.0)
[2023-02-28] MEDS ORDERED: METOPROLOL SUCC 50MG EXT REL TAB PO SCH (09:00)
[2023-02-28] MEDS ORDERED: MULTIVITAMIN TAB PO SCH (09:00)
[2023-02-28] MEDS ORDERED: ATORVASTATIN 40 MG TAB PO SCH (09:00)
[2023-02-28] MEDS ORDERED: UMECLIDINIUM BROMIDE 62.5MCG/BLISTER 7 PUFFS/INHALER INH SCH (09:00)
[2023-02-28] MEDS ORDERED: ENOXAPARIN 80 MG/0.8 ML SYR SQ SCH (09:00)
[2023-02-28] MEDS ORDERED: CALCIUM CARBONATE 1250MG TAB PO SCH (09:00)
[2023-02-28] MEDS ORDERED: ASPIRIN 81 MG ECTAB PO SCH (09:00)
[2023-02-28 12:49] LABS: Basophils # (auto) 0.02 K/uL (0-0.2); Basophils % (auto) 0.1 %; Hematocrit (blood only) 35.4 % (37.0-47.0); Hemoglobin 11.2 g/dl (12.0-16.0); Immature Granulocytes # (auto) 0.07 K/uL (0.01-0.20); Immature Granulocytes % (auto) 0.5 %; Lymphocytes # (auto) 1.61 K/uL (1.2-3.4); Lymphocytes % (auto) 10.9 %; Mean Corpuscular Hemoglobin 30.6 pg (25.0-34.0); Mean Corpuscular Hgb Conc 31.6 g/dL (32.0-36.0); Mean Corpuscular Volume 96.7 fL (80.0-100.0); Mean Platelet Volume 9.4 fL (9.4-12.4); Monocytes # (auto) 1.04 K/uL (0.11-0.59); Monocytes % (auto) 7.1 %; Neutrophils # (auto) 11.99 K/uL (1.40-6.50); Neutrophils % (auto) 81.4 %; Platelet Count 231 K/uL (130-400); RDW Coefficient of Variation 13.7 % (11.5-14.5); RDW Standard Deviation 48.9 fL (36.4-46.3); Red Blood Count 3.66 M/uL (4.20-5.40); White Blood Count 14.73 K/ul (4.8-10.8)
[2023-02-28 12:53] LABS: Albumin Globulin Ratio 1.7 (0.9-2); Albumin Level 3.3 gm/dl (3.4-5.0); BUN Creatinine Ratio 21.3 (10-20); Bilirubin,Total 0.3 mg/dl (0.2-1.0); Calcium 8.2 mg/dl (8.6-10.3); Creatinine Clr Calc Pharmacy 65.4 ml/min; Est GFR (Non-African American) 78.5 ml/min; Potassium 3.8 mmol/L (3.5-5.1); Total Protein 5.3 gm/dl (6.0-8.3)
--- NOTE | 2023-02-28 12:59 | Hospitalist Consultation ---
Date of Consultation February 28, 2023 Assessment & Plan (1) AMS (altered mental status): (2) Status post right knee replacement: (3) Tobacco use: (4) COPD (chronic obstructive pulmonary disease): -Medicine has been consulted for acute bout of AMS -No recent use of narcotic pain medication that would have caused AMS, would avoid narcotics, and use Tylenol and gabapentin for pain control -WBC baseline appears to be around 10, slightly elevated at 14.73 but this is most likely reactive, UA/urine culture ordered -NA is 134, likely secondary to less p.o. intake in the past 24 hours, her appetite is back to normal at this point -Denies any urinary based symptoms, no acute changes with R knee - moving it w ell, participated with PT, no pain no swelling -Encouraged smoking cessation, smokes 2 cigarettes daily, has not had any nicotine patch while being admitted -Patient recalls recent of , sister, and one of her pets which has been extremely stressful. Her son who is present at bedside lives next door to her and plans to frequently check in on her. Patient was encouraged that if she would have increasing bouts of confusion or any new symptoms that she should come back to the ER. Patient was agreeable and expressed understanding. Appears that her acute episode of AMS has completely resolved, was transient in nature. Patient can be discharged from a medical standpoint. Thank you for involving us in the care of Mrs. Easley.. If you have any questions or concerns please do not hesitate to call. At this time medicine will sign off. Supervising Physician Co-Signing Physician Notes Pt is a 72 y/o F with hx of Afib on Coumadin, Hx of PE, Lupus anticoagulant positive, COPD, Depression/Anxiety admitted for R knee replacement and consulted for transient AMS. At bedside: pt appeared well, not in acute distress or confusion A/P: Transient Confusion: -resolved on exam -likely 2/2 acute delirium from anesthesia -VSS -UA neg -WBC was slightly elevated likely reactive from recent surgery -pt is okay to be discharge - did discuss with family ---- if pt experience any AMS then bring her to the ER Agree with A/P by Pamela Cotton PA-C History of Present Illness Reason for Consultation: Postoperative confusion Requesting Physician: Dr. Thomson Attending Physician: Jerald Thomson, DO History of Present Illness This is a 72-year-old female with PMHx of paroxysmal A-fib on warfarin, HTN, HLD, emphysema, history of PE, history of TIA, lupus, migraine, osteoarthritis who presented to the hospital and underwent a right total knee arthroplasty by Dr. Thomson on 02/27/2023. Patient had been doing well this morning she was anticipated to be discharged from the hospital however had an intermittent bout of confusion. Patient had a spinal anesthesia and abductor nerve block for anesthesia. Patient was allowed to have oxycodone for pain control after procedure, however has not received any today and was placed on her routine home medications. Patient notes that she has been going through stressful situations at home with her sister passing away, of her , and recently had to put pet cat down. She reports at times her mind races, and sometimes gets herself confused. She smokes 2 cigarettes/day, and has not had any in 3 days since having surgical procedure. She denies need for nicotine patch but does feel more stressed without it. Her son who is present at bedside reports that she seems to be back to her normal baseline. She lives at home alone however he lives next door and frequently checks in on her, plans to do so more often since having surgical procedure upon discharge home. Allergies Allergy/AdvReac Type Severity Reaction Status Date / Time Iodinated Contrast Media Allergy Intermediate Hives Verified 02/27/23 09:32 Home Medications Medication Instructions Recorded Confirmed Type albuterol sulfate 90 mcg/actuation 2 puff inhalation Q6H PRN 09/09/18 02/27/23 History aerosol inhaler (Ventolin HFA) Shortness Of Breath calcium carbonate 600 mg calcium 600 mg PO QAM 12/15/18 02/27/23 History (1,500 mg) tablet (Calcium) omeprazole 20 mg capsule,delayed 10 mg PO QAM PRN Gi Upset 12/15/18 02/27/23 History release warfarin 5 mg tablet 5 mg PO 4XWK 12/15/18 02/27/23 History warfarin 5 mg tablet 7.5 mg PO 3XWK 12/15/18 02/27/23 History atorvastatin 40 mg tablet 40 mg PO QAM 04/14/21 02/27/23 History duloxetine 60 mg capsule,delayed 60 mg PO HS 04/14/21 02/27/23 History release buspirone 5 mg tablet 10 mg PO BID 01/11/22 02/27/23 History gabapentin 300 mg capsule 300 mg PO TID 01/11/22 02/27/23 History ondansetron 4 mg disintegrating 4 - 8 mg PO Q8H PRN nausea and 01/12/22 02/27/23 Rx tablet vomiting #14 tabs acetaminophen 500 mg tablet 500 mg PO BID PRN Pain 01/13/22 02/27/23 History (Tylenol Extra Strength) aspirin 81 mg tablet,delayed 81 mg PO QAM 01/13/22 02/27/23 History release alendronate 70 mg tablet 70 mg PO WK 01/13/23 02/27/23 History cefdinir 300 mg capsule 300 mg PO BID 01/13/23 02/27/23 History cholecalciferol (vitamin D3) 50 50 mcg PO QAM 01/13/23 02/27/23 History mcg (2,000 unit) capsule (Vitamin D3) cyanocobalamin (vitamin B-12) 1,000 mcg PO QAM 01/13/23 02/27/23 History 1,000 mcg tablet (Vitamin B-12) enoxaparin 80 mg/0.8 mL 80 mg subcut DAILY 01/13/23 02/27/23 History subcutaneous syringe guaifenesin 600 mg tablet, 600 mg PO BID PRN Congestion 01/13/23 02/27/23 History extended release 12 hr (Mucinex) hydroxyzine HCl 10 mg tablet 10 mg PO TID 01/13/23 02/27/23 History indapamide 1.25 mg tablet 1.25 mg PO DAILY PRN Edema 01/13/23 02/27/23 History metoprolol succinate 50 mg 50 mg PO QAM 01/13/23 02/27/23 History tablet,extended release 24 hr (Toprol XL) tiotropium bromide 2.5 2 inh inhalation QAM 01/13/23 02/27/23 History mcg/actuation mist for inhalation (Spiriva Respimat) oxycodone-acetaminophen 5 mg-325 1 tab PO Q6H PRN pain #30 tabs 02/28/23 Rx mg tablet Patient History Medical History A-fib Paroxysmal Follows with [facility] Taking warfarin Arthritis Chronic pain Emphysema lung History of pulmonary embolism 2019, Taking warfarin Hyperlipidemia Hypertension Lupus Memory loss Migraine Poor historian TIA (transient ischemic attack) 2019 Surgical History History of arthroscopy of left shoulder History of arthroscopy of right shoulder History of bilateral cataract extraction History of sinus surgery History of tooth extraction all upper teeth History of total hysterectomy with bilateral salpingo-oophorectomy (BSO) S/P trigger finger release Right trigger finger release (04/29/21): MAC at [facility] Family History Other Cancer Heart disease Hypertension No family history of adverse response to anesthesia Social History Smoking Status: Light tobacco smoker Cigarettes Per Day: 2 cigs/day; Second Hand Exposure: No; Do You Dip or Chew Tobacco: No; Hx Alcohol Use: No Hx Substance Use: No Preferred Language: [place] Communication Ability: Effective Visual Impairment: No Limitations [employer] Supervisor Required: No Beliefs That Will Affect Care: None marital status: Current Living Situation: Spouse current occupational status: retired Feels Safe at Home: Yes Assistive Devices: Glasses and Walker Review of Systems Review of Systems: Constitutional: No fever, chills, sweats, fatigue or weakness Eyes: No diplopia, no changes in vision ENT: No sore throat, tinnitus, or trouble swallowing Respiratory: No shortness of breath, No dyspnea at rest or on exertion, no cough or sputum Cardiovascular: No chest pain, palpitations, or flutter Abdomen: No pain, No constipation, No diarrhea, No nausea, No vomiting Musculoskeletal: No calf pain, No joint pain, No swelling Genitourinary : No dysuria or urinary frequency, No hematuria Neurologic: No numbness/tingling, no difficulty with ambulation, no sensory or motor deficits Psychiatric: No depression or anxiety symptoms Endocrine: No fatigue, No weight changes Integumentary: No itch, No rash Physical Exam Physical Exam: General: awake, alert, no apparent distress Head: Normocephalic, atraumatic ENT: PERRL, EOMI, no pharyngeal exudate, mucous membranes moist Chest: Clear to auscultation, on room air, no adventitious breath sounds Cardiac: Regular rate and rhythm, no murmur, no JVD, normal peripheral pulses, good capillary refill Abdominal: NABS x 4 quadrants, soft, nondistended, nontender to palpation, no rebound or guarding Extremities: Right lower extremity with good strength, bandage wrapped C/D/I, otherwise normal inspection, no peripheral edema or erythema, calfs nontender to palpation Psych: Normal mood and affect Neuro: AAO x 3, strength intact bilaterally and rated 5/5, no motor deficits, speech is clear, no peripheral sensory deficits, answers all questions appropriately, passes Mini-Mental exam. Results & Data Results & Data Vital Signs (Past 12 Hours) Vital Signs Temp Pulse Pulse Resp BP Pulse Ox O2 Del Method 02/28/23 11:20 36.7 C 71 16 119/53 L 96 Room Air 02/28/23 07:40 Room Air 02/28/23 06:33 36.6 C 79 16 116/64 94 Room Air 02/28/23 04:00 36.6 C 73 16 128/70 97 Room Air
[2023-02-28 13:56] LABS: Appearance Urine Clear (Clear); Bilirubin Urine Negative (Negative); Blood Urine Negative (Negative); Color Urine Yellow; Glucose Urine UA Negative (Negative); Ketones Urine Negative (Negative); Leukocyte Esterase Urine Negative (Negative); Nitrite Urine Negative (Negative); Protein Urine Negative (Negative); Specific Gravity Urine 1.007 (1.000-1.030); Urobilinogen Urine Negative (Negative); pH Urine 6.5 (4.5-7.5)
[2023-02-28] MEDS ORDERED: WARFARIN SOD 7.5 MG TAB PO SCH (16:00)
[2023-03-05] MEDS ORDERED: ALENDRONATE SODIUM 70 MG TAB PO SCH (06:00)
== END 2023-02-28 14:58 | disposition home health service (06) ==
LOC: ASU 09:03 → 3N 09:03

== ENCOUNTER 2023-03-06 11:29 | Inpatient (IN) ==
--- NOTE | 2023-03-06 13:34 | XRay Report ---
XR chest 1V portable HISTORY: 72 years-old Female weakness acute weakness COMPARISON: 01/13/2022 TECHNIQUE: AP view of the chest FINDINGS: Cardiomediastinal and hilar silhouettes are within normal limits. Atherosclerosis of the aorta. Pulmo nary emphysema. No pneumothorax, pleural effusion, airspace consolidation or pulmonary edema. Bones o f the chest appear grossly intact. Mild subsegmental bibasilar atelectasis versus scarring. IMPRESSION: No acute process ACT 112: Negative or not required by law. The above report was generated using voice recognition software. It may contain grammatical, syntax o r spelling errors. Electronically signed by: Alexei Francisco M.D. 03/06/2023 1:33 PM
[2023-03-06 13:36] LABS: Albumin Level 3.7 gm/dl (3.4-5.0); Anion Gap 6 (3-11); Bilirubin,Total 1.2 mg/dl (0.2-1.0); Calcium 8.9 mg/dl (8.6-10.3); Carbon Dioxide 32 mmol/L (21-32); Chloride 98 mmol/L (98-107); Sodium 136 mmol/L (136-145)
[2023-03-06 13:41] LABS: Appearance Urine Clear (Clear); Bilirubin Urine Negative (Negative); Blood Urine Negative (Negative); Color Urine Yellow; Glucose Urine UA Negative (Negative); Ketones Urine Negative (Negative); Leukocyte Esterase Urine Negative (Negative); Nitrite Urine Negative (Negative); Protein Urine Negative (Negative); Specific Gravity Urine 1.008 (1.000-1.030); Urobilinogen Urine Negative (Negative)
[2023-03-06 13:42] LABS: Alanine Aminotransferase 24 U/L (7-52); Albumin Globulin Ratio 1.2 (0.9-2); Alkaline Phosphatase 59 U/L (34-104); Aspartate Aminotransferase 24 U/L (13-39); Blood Urea Nitrogen 13 mg/dl (6-23); Est GFR (African American) 101.4 ml/min; Est GFR (Non-African American) 87.5 ml/min; Globulin 3.2 gm/dl (2.5-4.0); Glucose 94 mg/dl (70-99(Fasting)); Total Protein 6.9 gm/dl (6.0-8.3)
[2023-03-06 13:46] LABS: Basophils # (auto) 0.04 K/uL (0-0.2); Basophils % (auto) 0.4 %; Eosinophils # (auto) 0.15 K/uL (0-0.50); Eosinophils % (auto) 1.6 %; Hematocrit (blood only) 36.8 % (37.0-47.0); Hemoglobin 12.1 g/dl (12.0-16.0); Immature Granulocytes # (auto) 0.05 K/uL (0.01-0.20); Immature Granulocytes % (auto) 0.5 %; Lymphocytes # (auto) 1.74 K/uL (1.2-3.4); Lymphocytes % (auto) 18.2 %; Mean Corpuscular Hemoglobin 30.6 pg (25.0-34.0); Mean Corpuscular Hgb Conc 32.9 g/dL (32.0-36.0); Mean Corpuscular Volume 92.9 fL (80.0-100.0); Mean Platelet Volume 9.1 fL (9.4-12.4); Monocytes # (auto) 1.06 K/uL (0.11-0.59); Monocytes % (auto) 11.1 %; Neutrophils # (auto) 6.54 K/uL (1.40-6.50); Neutrophils % (auto) 68.2 %; Platelet Count 413 K/uL (130-400); RDW Coefficient of Variation 13.3 % (11.5-14.5); RDW Standard Deviation 45.4 fL (36.4-46.3); Red Blood Count 3.96 M/uL (4.20-5.40); White Blood Count 9.58 K/ul (4.8-10.8)
[2023-03-06 15:01] LABS: INR 5.3 (0.9-1.1); Prothrombin Time 52.5 Seconds (9.0-12.0)
--- NOTE | 2023-03-06 15:05 | Emergency Department Note ---
Impression & Plan Hallucinations, Elevated international normalized ratio (INR), Weakness, Acute pain of right lower extremity ED Provider Note Provider: Darren Nelson MD DATE OF SERVICE: 03/06/2023 CHIEF COMPLAINT: Confusion, back pain control HISTORY OF PRESENT ILLNESS: Patient is a 72-year-old female past medical history including paroxysmal atrial fibrillation on warfarin, history of PE on warfarin, hypertension, TIA, lupus anticoagulant, migraine, and recent right knee replacement last week with Dr. Thomson presenting here from home today reporting increased confusion and back pain control due to pain predominantly in the right knee but also to some degree in the right flank and lower quadrant. Patient's son as well as patient's [id number] via phone provide additional history. Patient evidently has been using Percocet at home but not covering the pain well. No new falls or any new trauma reported. Patient is having some hallucinations and is more confused. They report that she is been seeing a cat and some horses which they do not have. Family's been trying to help him be supportive and staying with her at home but it is not going well. Did reduce the Percocet today and last took 1 around 9:00 this morning to see if this would help with any of her confusion issues. Patient with a chronic headache but denies new head pain. Denies any significant fevers or respiratory issues. Maybe little bit of dysuria reported. Mild pain in the right lower abdomen to flank region. Patient has been under adequate lesion after Lovenox bridge from the surgery. PAST MEDICAL HISTORY: As noted above MEDICATIONS: Reviewed home medications SOCIAL HISTORY: Lives at home PHYSICAL EXAM: GENERAL: alert and oriented in no acute distress on stretcher but fatigued in appearance Head: normocephalic and atraumatic EYES: No injection, discharge or icterus. PERRL, EOMI. NECK: Trachea midline. ENT: Mucous membranes pink and moist. LUNGS: Airway patent. No retractions. Breath sounds clear HEART: Regular rate and rhythm. No chest wall tenderness ABDOMEN: Soft with maybe some slight mild right flank to right lower quadrant tenderness. No guarding. SKIN: Acyanotic, warm, dry, without rashes EXTREMITIES: Without swelling, tenderness or deformity except for the right lower extremity which is swollen with healing stapled anterior knee surgical site. Trace erythema here. Some diffuse contusion and edema from the proximal thigh to just distal of the right knee. NEUROLOGICAL: No aphasia. No facial droop or slurred speech. Normal strength and tone in the extremities. Sensation to gross touch normal. EK bpm normal sinus rhythm. No PVC or PAC. No acute ST segment elevation or depression with QTc of 425. CONTINUOUS CARDIAC MONITORING: was ordered and showed a heart rate of 80s bpm in normal sinus rhythm PDMP was checked without noted issue. Patient's laboratory studies and imaging reviewed. Differential includes Infection, dehydration, metabolic abnormality, hypo/hyperglycemia, electrolyte disturbance, anemia, hypoxia, cardiac sources, intracerebral event/neurologic, as well as other pathologies. IMPRESSION/MEDICAL DECISION MAKING: Patient without reported fevers. Some dysuria symptoms but urinalysis here not indicative of infection. Swelling to the right knee and leg. Some pain but no new trauma. Will obtain x-ray. Does not appear significantly infected. No fevers reported. No leukocytosis. Has been on anticoagulants and will check I NR. Minimal right flank and right lower quadrant tenderness but given her comorbidities we will complete a CT here as well as a CT of the head given her reports some confusion. Having some hallucinations. Not really focal and lower suspicion for CVA. Not significant hypoxic and lower suspicion for hypercarbia however we will complete a VBG. INR supratherapeutic at 5.3. No significant electrolyte abnormalities or signs of acute hepatitis. Increased INR possibly from some decreased intake related to her recent surgery and pain may be contributing to some of the swelling and edema but unclear how this is related to the confusion/hallucinations. Discussed with patient and family and will bring into the hospital for evaluation. Doubt DVT/PE given her anticoagulated status and elevated INR. No evidence of compartment syndrome on exam of the RLE. CT of the abdomen pelvis did question some possible gallbladder inflammation and sent for an ultrasound. Some sludge noted in without clear findings of acute cholecystitis and history is not superstrong for this. LFTs without significant abnormality and no leukocytosis. At this time do not believe this is an acute cholecystitis but can be monitored further as the patient requires further care here given her poor pain control from her leg as well as the hallucinations she is been having. Discussed with the hospitalist and the patient was updated. DIAGNOSIS: Right knee pain status post surgery, supratherapeutic INR, hallucinations DISPOSITION: Hospitalist will evaluate Patient was agreeable with this plan. Past Med/Surg History Medical History A-fib Paroxysmal Follows with [facility] cardio Taking warfarin Arthritis Chronic pain Emphysema lung History of pulmonary embolism 2019, Taking warfarin Hyperlipidemia Hypertension Lupus Memory loss Migraine Poor historian TIA (transient ischemic attack) 2019 Surgical History History of arthroscopy of left shoulder History of arthroscopy of right shoulder History of bilateral cataract extraction History of sinus surgery History of tooth extraction all upper teeth History of total hysterectomy with bilateral salpingo-oophorectomy (BSO) S/P trigger finger release Right trigger finger release (04/29/21): MAC at [facility] Family History Other Cancer Heart disease Hypertension No family history of adverse response to anesthesia Social History Smoking Status: Current every day smoker Tobacco Type: Cigarettes Cigarettes Per Day: 2 cigs/day; Second Hand Exposure: No; Do You Dip or Chew Tobacco: No; Hx Alcohol Use: No Hx Substance Use: No Preferred Language: Eritrean Communication Ability: Effective Visual Impairment: No Limitations Nurse Unit Manager Required: No Beliefs That Will Affect Care: None marital status: Current Living Situation: Spouse current occupational status: retired Feels Safe at Home: Yes Assistive Devices: Glasses and Walker Allergies Allergies Allergy/AdvReac Type Severity Reaction Status Date / Time Iodinated Contrast Media Allergy Intermediate Hives Verified 02/27/23 09:32 Home Meds Home Medications Medication Instructions Recorded Confirmed albuterol sulfate 90 mcg/actuation 2 puff inhalation Q6H PRN 09/09/18 03/06/23 aerosol inhaler (Ventolin HFA) Shortness Of Breath calcium carbonate 600 mg calcium 600 mg PO QAM 12/15/18 03/06/23 (1,500 mg) tablet (Calcium) omeprazole 20 mg capsule,delayed 20 mg PO QAM 12/15/18 03/06/23 release warfarin 5 mg tablet 5 mg PO 4XWK 12/15/18 03/06/23 warfarin 5 mg tablet 7.5 mg PO 3XWK 12/15/18 03/06/23 atorvastatin 40 mg tablet 40 mg PO QAM 04/14/21 03/06/23 duloxetine 60 mg capsule,delayed 60 mg PO HS 04/14/21 03/06/23 release buspirone 5 mg tablet 10 mg PO BID 01/11/22 03/06/23 gabapentin 300 mg capsule 300 mg PO TID 01/11/22 03/06/23 aspirin 81 mg tablet,delayed 81 mg PO QAM 01/13/22 03/06/23 release alendronate 70 mg tablet 70 mg PO WK 01/13/23 03/06/23 cholecalciferol (vitamin D3) 50 50 mcg PO QAM 01/13/23 03/06/23 mcg (2,000 unit) capsule (Vitamin D3) cyanocobalamin (vitamin B-12) 1,000 mcg PO QAM 01/13/23 03/06/23 1,000 mcg tablet (Vitamin B-12) guaifenesin 600 mg tablet, 600 mg PO BID PRN Congestion 01/13/23 03/06/23 extended release 12 hr (Mucinex) hydroxyzine HCl 10 mg tablet 10 mg PO TID 01/13/23 03/06/23 indapamide 1.25 mg tablet 1.25 mg PO QAM 01/13/23 03/06/23 metoprolol succinate 50 mg 50 mg PO QAM 01/13/23 03/06/23 tablet,extended release 24 hr (Toprol XL) tiotropium bromide 2.5 2 inh inhalation [facility] 01/13/23 03/06/23 mcg/actuation mist for inhalation (Spiriva Respimat) furosemide 40 mg tablet 40 mg PO DAILY 03/06/23 03/06/23 potassium chloride 10 mEq 10 meq PO QAM 03/06/23 03/06/23 tablet,extended release Previous Rx's Medication Instructions Recorded ondansetron 4 mg disintegrating 4 - 8 mg PO Q8H PRN nausea and 01/12/22 tablet vomiting #14 tabs oxycodone-acetaminophen 5 mg-325 1 - 2 tab PO Q6H PRN pain #40 tabs 03/03/23 mg tablet (Percocet) Results & Data (ED) Vital Signs Vital Signs - 24 hr 03/06/23 11:42 03/06/23 13:11 03/06/23 13:49 Temperature 37.1 C Temperature Source Temporal Artery Scan Pulse Rate 84 Pulse Rate [Left Apical] 74 Respiratory Rate 20 18 Respiratory Effort / Characteristics Non-Labored Spontaneous Respiratory Depth Normal Respiratory Pattern Regular Blood Pressure 124/76 Blood Pressure [Right Arm] 137/67 Blood Pressure Mean 92 Blood Pressure Mean [Right Arm] 90 Pulse Oximetry 93 91 Oxygen Delivery Method Room Air Room Air Oxygen Flow Rate Sepsis Recent Fever Within 48 Hours No Sepsis New/Unexplained Change in Mental Status Yes Sepsis Action Taken by Nursing No Action Required 03/06/23 13:30 03/06/23 14:46 03/06/23 15:14 Temperature Temperature Source Pulse Rate 80 Pulse Rate [Left Apical] 94 H Respiratory Rate 19 18 Respiratory Effort / Characteristics Respiratory Depth Normal Respiratory Pattern Blood Pressure Blood Pressure [Right Arm] 119/63 117/60 Blood Pressure Mean Blood Pressure Mean [Right Arm] 81 79 Pulse Oximetry 92 90 Oxygen Delivery Method Room Air Room Air Oxygen Flow Rate Sepsis Recent Fever Within 48 Hours Sepsis New/Unexplained Change in Mental Status Sepsis Action Taken by Nursing 03/06/23 15:18 03/06/23 15:31 03/06/23 17:26 Temperature Temperature Source Pulse Rate 82 96 H Pulse Rate [Left Apical] 83 Respiratory Rate 18 17 19 Respiratory Effort / Characteristics Respiratory Depth Respiratory Pattern Blood Pressure 127/55 L 144/59 H Blood Pressure [Right Arm] 143/67 H Blood Pressure Mean 79 87 Blood Pressure Mean [Right Arm] 92 Pulse Oximetry 95 94 Oxygen Delivery Method Room Air Room Air Oxygen Flow Rate Sepsis Recent Fever Within 48 Hours Sepsis New/Unexplained Change in Mental Status Sepsis Action Taken by Nursing 03/06/23 18:00 03/06/23 18:30 Temperature Temperature Source Pulse Rate 86 81 Pulse Rate [Left Apical] Respiratory Rate 21 17 Respiratory Effort / Characteristics Respiratory Depth Respiratory Pattern Blood Pressure 141/80 H 128/71 Blood Pressure [Right Arm] Blood Pressure Mean 100 90 Blood Pressure Mean [Right Arm] Pulse Oximetry 97 98 Oxygen Delivery Method Nasal Cannula Nasal Cannula Oxygen Flow Rate 2 2 Sepsis Recent Fever Within 48 Hours Sepsis New/Unexplained Change in Mental Status Sepsis Action Taken by Nursing Laboratory Data 03/06/23 12:38 03/06/23 12:38 Lab Results 03/06/23 03/06/23 03/06/23 Range/Units 12:36 12:36 12:38 WBC 9.58 (4.8-10.8) K/ul RBC 3.96 L (4.20-5.40) M/uL Hgb 12.1 (12.0-16.0) g/dl Hct 36.8 L (37.0-47.0) % MCV 92.9 (80.0-100.0) fL MCH 30.6 (25.0-34.0) pg MCHC 32.9 (32.0-36.0) g/dL RDW Std Deviation 45.4 (36.4-46.3) fL RDW Coeff of Real 13.3 (11.5-14.5) % Plt Count 413 H (130-400) K/uL MPV 9.1 L (9.4-12.4) fL Immature Gran % (Auto) 0.5 % Neut % (Auto) 68.2 % Lymph % (Auto) 18.2 % [place] % (Auto) 11.1 % Eos % (Auto) 1.6 % Baso % (Auto) 0.4 % Neut # (Auto) 6.54 H (1.40-6.50) K/uL Lymph # (Auto) 1.74 (1.2-3.4) K/uL [place] # (Auto) 1.06 H (0.11-0.59) K/uL Eos # (Auto) 0.15 (0-0.50) K/uL Baso # (Auto) 0.04 (0-0.2) K/uL Immature Gran # (Auto) 0.05 (0.01-0.20) K/uL PT 52.5 H (9.0-12.0) Seconds INR 5.3 H (0.9-1.1) APTT 54.0 H* (21.0-31.0) Seconds PTT Ratio 1.9 VBG pH (7.36-7.41) VBG pCO2 (38-50) mmHg VBG pO2 mmHg VBG HCO3 mmol/L VBG O2 Saturation % VBG Base Excess mEq/L Sodium (136-145) mmol/L Potassium (3.5-5.1) mmol/L Chloride (98-107) mmol/L Carbon Dioxide (21-32) mmol/L Anion Gap (3-11) BUN (6-23) mg/dl Creatinine (0.6-1.2) mg/dl Est Cr Clr Drug Dosing Est GFR ( Amer) ml/min Est GFR (Non-Af Amer) ml/min BUN/Creatinine Ratio (10-20) Glucose (70-99(Fasting)) mg/dl Calcium (8.6-10.3) mg/dl Total Bilirubin (0.2-1.0) mg/dl AST (13-39) U/L ALT (7-52) U/L Alkaline Phosphatase (34-104) U/L Troponin I High Sens (0-14) pg/ml Total Protein (6.0-8.3) gm/dl Albumin (3.4-5.0) gm/dl Globulin (2.5-4.0) gm/dl Albumin/Globulin Ratio (0.9-2) Lipase (11-82) U/L TSH (0.300-4.500) uIu/ml Urine Color Urine Appearance (Clear) Urine pH (4.5-7.5) Ur Specific [place] (1.000-1.030) Urine Protein (Negative) Urine Glucose (UA) (Negative) Urine Ketones (Negative) Urine Blood (Negative) Urine Nitrite (Negative) Urine Bilirubin (Negative) Urine Urobilinogen (Negative) Ur Leukocyte Esterase (Negative) SARS-CoV-2, RNA, NAAT (NEGATIVE) 03/06/23 03/06/23 03/06/23 Range/Units 12:38 12:38 13:11 WBC (4.8-10.8) K/ul RBC (4.20-5.40) M/uL Hgb (12.0-16.0) g/dl Hct (37.0-47.0) % MCV (80.0-100.0) fL MCH (25.0-34.0) pg MCHC (32.0-36.0) g/dL RDW Std Deviation (36.4-46.3) fL RDW Coeff of Real (11.5-14.5) % Plt Count (130-400) K/uL MPV (9.4-12.4) fL Immature Gran % (Auto) % Neut % (Auto) % Lymph % (Auto) % [place] % (Auto) % Eos % (Auto) % Baso % (Auto) % Neut # (Auto) (1.40-6.50) K/uL Lymph # (Auto) (1.2-3.4) K/uL [place] # (Auto) (0.11-0.59) K/uL Eos # (Auto) (0-0.50) K/uL Baso # (Auto) (0-0.2) K/uL Immature Gran # (Auto) (0.01-0.20) K/uL PT (9.0-12.0) Seconds INR (0.9-1.1) APTT (21.0-31.0) Seconds PTT Ratio VBG pH (7.36-7.41) VBG pCO2 (38-50) mmHg VBG pO2 mmHg VBG HCO3 mmol/L VBG O2 Saturation % VBG Base Excess mEq/L Sodium 136 (136-145) mmol/L Potassium 4.0 (3.5-5.1) mmol/L Chloride 98 (98-107) mmol/L Carbon Dioxide 32 (21-32) mmol/L Anion Gap 6 (3-11) BUN 13 (6-23) mg/dl Creatinine 0.65 (0.6-1.2) mg/dl Est Cr Clr Drug Dosing Not Reportable Est GFR ( Amer) 101.4 ml/min Est GFR (Non-Af Amer) 87.5 ml/min BUN/Creatinine Ratio 20.0 (10-20) Glucose 94 (70-99(Fasting)) mg/dl Calcium 8.9 (8.6-10.3) mg/dl Total Bilirubin 1.2 H (0.2-1.0) mg/dl AST 24 (13-39) U/L ALT 24 (7-52) U/L Alkaline Phosphatase 59 (34-104) U/L Troponin I High Sens 4.1 (0-14) pg/ml Total Protein 6.9 (6.0-8.3) gm/dl Albumin 3.7 (3.4-5.0) gm/dl Globulin 3.2 (2.5-4.0) gm/dl Albumin/Globulin Ratio 1.2 (0.9-2) Lipase 17 (11-82) U/L TSH 4.108 (0.300-4.500) uIu/ml Urine Color Yellow Urine Appearance Clear (Clear) Urine pH 7.0 (4.5-7.5) Ur Specific [place] 1.008 (1.000-1.030) Urine Protein Negative (Negative) Urine Glucose (UA) Negative (Negative) Urine Ketones Negative (Negative) Urine Blood Negative (Negative) Urine Nitrite Negative (Negative) Urine Bilirubin Negative (Negative) Urine Urobilinogen Negative (Negative) Ur Leukocyte Esterase Negative (Negative) SARS-CoV-2, RNA, NAAT (NEGATIVE) 03/06/23 03/06/23 Range/Units 15:30 17:30 WBC (4.8-10.8) K/ul RBC (4.20-5.40) M/uL Hgb (12.0-16.0) g/dl Hct (37.0-47.0) % MCV (80.0-100.0) fL MCH (25.0-34.0) pg MCHC (32.0-36.0) g/dL RDW Std Deviation (36.4-46.3) fL RDW Coeff of Real (11.5-14.5) % Plt Count (130-400) K/uL MPV (9.4-12.4) fL Immature Gran % (Auto) % Neut % (Auto) % Lymph % (Auto) % [place] % (Auto) % Eos % (Auto) % Baso % (Auto) % Neut # (Auto) (1.40-6.50) K/uL Lymph # (Auto) (1.2-3.4) K/uL [place] # (Auto) (0.11-0.59) K/uL Eos # (Auto) (0-0.50) K/uL Baso # (Auto) (0-0.2) K/uL Immature Gran # (Auto) (0.01-0.20) K/uL PT (9.0-12.0) Seconds INR (0.9-1.1) APTT (21.0-31.0) Seconds PTT Ratio VBG pH 7.42 H (7.36-7.41) VBG pCO2 50 (38-50) mmHg VBG pO2 20 mmHg VBG HCO3 32 mmol/L VBG O2 Saturation < 60.0 % VBG Base Excess 6.6 mEq/L Sodium (136-145) mmol/L Potassium (3.5-5.1) mmol/L Chloride (98-107) mmol/L Carbon Dioxide (21-32) mmol/L Anion Gap (3-11) BUN (6-23) mg/dl Creatinine (0.6-1.2) mg/dl Est Cr Clr Drug Dosing Est GFR ( Amer) ml/min Est GFR (Non-Af Amer) ml/min BUN/Creatinine Ratio (10-20) Glucose (70-99(Fasting)) mg/dl Calcium (8.6-10.3) mg/dl Total Bilirubin (0.2-1.0) mg/dl AST (13-39) U/L ALT (7-52) U/L Alkaline Phosphatase (34-104) U/L Troponin I High Sens (0-14) pg/ml Total Protein (6.0-8.3) gm/dl Albumin (3.4-5.0) gm/dl Globulin (2.5-4.0) gm/dl Albumin/Globulin Ratio (0.9-2) Lipase (11-82) U/L TSH (0.300-4.500) uIu/ml Urine Color Urine Appearance (Clear) Urine pH (4.5-7.5) Ur Specific [place] (1.000-1.030) Urine Protein (Negative) Urine Glucose (UA) (Negative) Urine Ketones (Negative) Urine Blood (Negative) Urine Nitrite (Negative) Urine Bilirubin (Negative) Urine Urobilinogen (Negative) Ur Leukocyte Esterase (Negative) SARS-CoV-2, RNA, NAAT NEGATIVE (NEGATIVE) Administered Medications Discontinued Medications Fentanyl Citrate (Fentanyl Citrate Pf 100 Mcg/2 Ml Vial) 50 mcg IV NOW STA Stop: 03/06/23 17:06 Last Admin: 03/06/23 17:22 Dose: 50 mcg Documented By: ML Sodium Chloride (Nss) 500 mls @ 999 mls/hr IV .Q31M ONE Stop: 03/06/23 17:41 Last Infusion: 03/06/23 18:23 Dose: 0 mls/hr Documented By: Admin: 03/06/23 17:26 Dose: 999 mls/hr Documented By: ML Imaging Data Radiologist's Impression: Chest X-Ray 03/06/23 12:24 XR chest 1V portable HISTORY: 72 years-old Female weakness acute weakness COMPARISON: 01/13/2022 TECHNIQUE: AP view of the chest FINDINGS: Cardiomediastinal and hilar silhouettes are within normal limits. Atherosclerosis of the aorta. Pulmonary emphysema. No pneumothorax, pleural effusion, airspace consolidation or pulmonary edema. Bones of the chest appear grossly intact. Mild subsegmental bibasilar atelectasis versus scarring. IMPRESSION: No acute process ACT 112: Negative or not required by law. The above report was generated using voice recognition software. It may contain grammatical, syntax or spelling errors. Electronically signed by: Alexei Francisco M.D. 03/06/2023 1:33 PM Abdomen/Pelvis CT 03/06/23 14:25 CT OF THE ABDOMEN AND PELVIS WITHOUT CONTRAST CLINICAL HISTORY: Right flank to RLq pain, on AC recent R knee surgery COMPARISON STUDY: CT of the abdomen and pelvis January 13, 2022. TECHNIQUE: Axial images of the abdomen and pelvis were obtained without IV co ntrast. Images were reviewed in the axial, sagittal, and coronal planes. Automated exposure control was utilized for the study. A dose lowering technique was utilized adhering to the principles of ALARA. FINDINGS: There is mild elevation the right hemidiaphragm. No pneumatosis, free air or portal venous gas is present. No renal, ureteral or bladder calculi are present. There is no hydronephrosis or hydroureter. Capsular calcifications within the left kidney are unchanged. Evaluation of the remainder of the abdomen and pelvis is suboptimal on this unenhanced exam. Hypodense bilateral adrenal nodules are unchanged from earlier exams. These are benign given stability. Unenhanced images of the liver, spleen and pancreas are normal. Moderate gallbladder distention is noted. There is mild adjacent infiltration. The ileocecal valve and proximal right colon are now within the right upper quadrant with displacement of the right hepatic lobe. The appendix is mildly dilated containing hyperdense material. There is no adjacent infiltration. There is no evidence for acute appendicitis. There is no evidence for a bowel obstruction. A moderate amount of stool within the colon and rectum is present. There is no fluid collection. Asymmetric right thigh stranding is partially imaged. IMPRESSION: 1. Moderate gallbladder distention with mild adjacent stranding. A right upper quadrant ultrasound is recommended to evaluate for acute cholecystitis. 2. No bowel obstruction. Moderate amount of stool within the colon and rectum. 3. Right thigh stranding, partially imaged on this exam. This is nonspecific although may be postsurgical. Consideration might be given to further evaluation with right lower extremity venous Doppler ultrasound. 4. Borderline dilated appendix which contains hyperdense material. No evidence for acute appendicitis. ACT 112: Negative or not required by law. Electronically signed by: Ayush Neff M.D. 03/06/2023 3:[address] 03/06/23 14:[address] DOSE: HISTORY: hallucinations TECHNIQUE: Multiaxial CT images of the head were performed without the use of intravenous contrast. Automated exposure control was utilized for this study. A dose lowering technique was utilized adhering to the principles of ALARA. Comparison: Head CT 08/12/2020. Findings: Postoperative changes again noted within the paranasal sinuses. The mastoid air cells are clear. The calvarium and skull base are intact. There is no mass, hematoma, midline shift, acute infarct. White matter hypodensity is nonspecific but suggestive of microvascular ischemic change. The ventricles and sulci demonstrate mild age-related involutional changes. Impression: No significant change compared to the prior study. No acute intracranial abnormality. ACT 112: Negative or not required by law. Electronically signed by: Fox Mckeon M.D. 03/06/2023 3:25 PM Knee X-Ray 03/06/23 14:44 XR knee RT 1 or 2V routine CLINICAL HISTORY: Right knee pain following fall. COMPARISON: Right knee radiographs February 27, 2023. FINDINGS: Alignment of the right knee arthroplasty is anatomic. There is no p eriprosthetic fracture. Skin edelmira are noted. Moderate right knee joint effusion is present. There is right knee soft tissue swelling. IMPRESSION: 1. Intact total right knee arthroplasty. No periprosthetic fracture. 2. Moderate right knee joint effusion. Right knee soft tissue swelling. ACT 112: Negative or not required by law. Electronically signed by: Ayush Neff M.D. 03/06/2023 3:08 PM Gallbladder Ultrasound 03/06/23 15:57 US gallbladder CLINICAL HISTORY: Right-sided abdominal pain. COMPARISON STUDY: CT of the abdomen and pelvis performed earlier today. FINDINGS: The liver is sonographically normal. There is no biliary ductal dilatation. The common bile duct measures 5 mm in caliber. The gallbladder is moderately distended. Sludge within the gallbladder is noted. There are no gallstones. There is no significant gallbladder wall thickening. No sonographic Whitfield sign was elicited. Pancreas is unremarkable by sonography. There is no right hydronephrosis. IMPRESSION: 1. Moderate gallbladder distention. Sludge within the gallbladder with no gallstones. No sonographic Whitfield sign. These findings do not strongly suggest acute cholecystitis although a hepatobiliary scan could be obtained if indicated. 2. No biliary ductal dilatation. ACT 112: Negative or not required by law. Electronically signed by: Ayush Neff M.D. 03/06/2023 5:00 PM Discharge Plan Visit Data Chief Complaint: Confusion Stated Complaint: KNEE SURGERY RECENTLY, CONFUSION ED Provider: Darren Nelson Discharge Problem: Hallucinations, Elevated international normalized ratio (INR), Weakness, Acute pain of right lower extremity Patient Disposition: Being Evaluated by Hospitalist Forms Stand Alone Forms: My [facility] [place] Prescriptions Prescriptions: No Action oxycodone-acetaminophen [Percocet] 5-325 mg tablet 1 - 2 tab PO Q6H PRN (Reason: pain) Qty: 40 0RF calcium carbonate [Calcium 600] 600 mg calcium (1,500 mg) Tablet 600 mg PO QAM omeprazole 20 mg capsule,delayed release(DR/EC) 20 mg PO QAM warfarin 5 mg tablet 5 mg PO 4XWK Rx Instructions: TAKE 5MG warfarin 5 mg tablet 7.5 mg PO 3XWK Rx Instructions: TAKE 7.5 MG albuterol sulfate [Ventolin HFA] 90 mcg/actuation Hfa Aerosol Inhaler 2 puff INHALATION Q6H PRN (Reason: Shortness Of Breath) buspirone 5 mg tablet 10 mg PO BID gabapentin 300 mg capsule 300 mg PO TID ondansetron 4 mg tablet,disintegrating 4 - 8 mg PO Q8H PRN (Reason: nausea and vomiting) Qty: 14 0RF aspirin 81 mg Tablet,Delayed Release (Dr/Ec) 81 mg PO QAM duloxetine 60 mg Capsule,Delayed Release(Dr/Ec) 60 mg PO HS atorvastatin 40 mg Tablet 40 mg PO QAM alendronate 70 mg Tablet 70 mg PO WK Rx Instructions: monday cyanocobalamin (vitamin B-12) [Vitamin B-12] 1,000 mcg Tablet 1,000 mcg PO QAM indapamide 1.25 mg tablet 1.25 mg PO QAM cholecalciferol (vitamin D3) [Vitamin D3] 50 mcg (2,000 unit) Capsule 50 mcg PO QAM Spiriva Respimat 2.5 mcg/actuation Mist 2 inh INHALATION QAM guaifenesin [Mucinex] 600 mg Tablet Extended Release 12hr 600 mg PO BID PRN (Reason: Congestion) metoprolol succinate [Toprol XL] 50 mg tablet extended release 24 hr 50 mg PO QAM hydroxyzine HCl 10 mg tablet 10 mg PO TID furosemide 40 mg tablet 40 mg PO DAILY potassium chloride 10 mEq tablet extended release 10 meq PO QAM Referrals Referrals: Perfecto Sauceda DO [Primary Care Provider] -
--- NOTE | 2023-03-06 15:10 | XRay Report ---
XR knee RT 1 or 2V routine CLINICAL HISTORY: Right knee pain following fall. COMPARISON: Right knee radiographs February 27, 2023. FINDINGS: Alignment of the right knee arthroplasty is anatomic. There is no periprosthetic fracture. Skin edelmira are noted. Moderate right knee joint effusion is present. There is right knee soft tiss ue swelling. IMPRESSION: 1. Intact total right knee arthroplasty. No periprosthetic fracture. 2. Moderate right knee joint effusion. Right knee soft tissue swelling. ACT 112: Negative or not required by law. Electronically signed by: Ayush Neff M.D. 03/06/2023 3:08 PM
[2023-03-06 15:13] LABS: Lipase 17 U/L (11-82)
[2023-03-06 15:23] LABS: Troponin I High Sensitivity 4.1 pg/ml (0-14)
--- NOTE | 2023-03-06 15:27 | CT Scan Report ---
HEAD CT NONCONTRAST CT DOSE: HISTORY: hallucinations TECHNIQUE: Multiaxial CT images of the head were performed without the use of intravenous contrast. A utomated exposure control was utilized for this study. A dose lowering technique was utilized adheri ng to the principles of ALARA. Comparison: Head CT 08/12/2020. Findings: Postoperative changes again noted within the paranasal sinuses. The mastoid air cells are c lear. The calvarium and skull base are intact. There is no mass, hematoma, midline shift, acute infar ct. White matter hypodensity is nonspecific but suggestive of microvascular ischemic change. The vent ricles and sulci demonstrate mild age-related involutional changes. Impression: No significant change compared to the prior study. No acute intracranial abnormality. ACT 112: Negative or not required by law. Electronically signed by: Fox Mkceon M.D. 03/06/2023 3:25 PM
--- NOTE | 2023-03-06 15:36 | Electrocardiogram Report ---
Test Reason : Blood Pressure : / mmHG Vent. Rate : 083 BPM Atrial Rate : 083 BPM P-R Int : 150 ms QRS Dur : 074 ms QT Int : 362 ms P-R-T Axes : 036 006 031 degrees QTc Int : 425 ms Normal sinus rhythm Poor R wave progression, consider anterior [place] vs. lead placement vs. LVH Abnormal ECG When compared with ECG of 25-JAN-2023 10:59, Loss of precordial R wave voltage Otherwise no significant change Confirmed by Sidney Barragan ([id number]) on 03/06/2023 3:36:03 PM Referred By: REFERRED SELF Confirmed By:Sidney Barragan
--- NOTE | 2023-03-06 15:36 | CT Scan Report ---
CT OF THE ABDOMEN AND PELVIS WITHOUT CONTRAST CLINICAL HISTORY: Right flank to RLq pain, on AC recent R knee surgery COMPARISON STUDY: CT of the abdomen and pelvis January 13, 2022. TECHNIQUE: Axial images of the abdomen and pelvis were obtained without IV contrast. Images were revi ewed in the axial, sagittal, and coronal planes. Automated exposure control was utilized for the renuka dy. A dose lowering technique was utilized adhering to the principles of ALARA. FINDINGS: There is mild elevation the right hemidiaphragm. No pneumatosis, free air or portal venous gas is present. No renal, ureteral or bladder calculi are present. There is no hydronephrosis or hydr oureter. Capsular calcifications within the left kidney are unchanged. Evaluation of the remainder of the abdomen and pelvis is suboptimal on this unenhanced exam. Hypodense bilateral adrenal nodules ar e unchanged from earlier exams. These are benign given stability. Unenhanced images of the liver, spl een and pancreas are normal. Moderate gallbladder distention is noted. There is mild adjacent infiltr ation. The ileocecal valve and proximal right colon are now within the right upper quadrant with disp lacement of the right hepatic lobe. The appendix is mildly dilated containing hyperdense material. Th ere is no adjacent infiltration. There is no evidence for acute appendicitis. There is no evidence fo r a bowel obstruction. A moderate amount of stool within the colon and rectum is present. There is no fluid collection. Asymmetric right thigh stranding is partially imaged. IMPRESSION: 1. Moderate gallbladder distention with mild adjacent stranding. A right upper quadrant ultrasound is recommended to evaluate for acute cholecystitis. 2. No bowel obstruction. Moderate amount of stool within the colon and rectum. 3. Right thigh stranding, partially imaged on this exam. This is nonspecific although may be postsurg ical. Consideration might be given to further evaluation with right lower extremity venous Doppler ul trasound. 4. Borderline dilated appendix which contains hyperdense material. No evidence for acute appendicitis . ACT 112: Negative or not required by law. Electronically signed by: Ayush Neff M.D. 03/06/2023 3:34 PM
[2023-03-06 15:37] LABS: Partial Thromboplastin Ratio 1.9
[2023-03-06 15:38] LABS: Base Excess VBG 6.6 mEq/L; HCO3 VBG 32 mmol/L; Oxygen Saturation VBG < 60.0 %; PCO2 VBG 50 mmHg (38-50); PO2 VBG 20 mmHg; pH VBG 7.42 (7.36-7.41)
--- NOTE | 2023-03-06 17:02 | Ultrasound Report ---
US gallbladder CLINICAL HISTORY: Right-sided abdominal pain. COMPARISON STUDY: CT of the abdomen and pelvis performed earlier today. FINDINGS: The liver is sonographically normal. There is no biliary ductal dilatation. The common bile duct measures 5 mm in caliber. The gallbladder is moderately distended. Sludge within the gallbladde r is noted. There are no gallstones. There is no significant gallbladder wall thickening. No sonograp hic Whitfield sign was elicited. Pancreas is unremarkable by sonography. There is no right hydronephrosi s. IMPRESSION: 1. Moderate gallbladder distention. Sludge within the gallbladder with no gallstones. No sonographic Whitfield sign. These findings do not strongly suggest acute cholecystitis although a hepatobiliary scan could be obtained if indicated. 2. No biliary ductal dilatation. ACT 112: Negative or not required by law. Electronically signed by: Ayush Neff M.D. 03/06/2023 5:00 PM
[2023-03-06] MEDS ORDERED: fentaNYL citrate PF 100 MCG/2 ML VIAL IV STA (17:05)
[2023-03-06] MEDS ORDERED: SODIUM CHLORIDE 0.9% 500 ML IV ONE (17:11)
--- NOTE | 2023-03-06 17:38 | History & Physical Report ---
Date of Service March 06, 2023 Assessment & Plan (1) AMS (altered mental status): (2) Status post right knee replacement: (3) Supratherapeutic INR: (4) COPD (chronic obstructive pulmonary disease): Admission and Anticipated Discharge Date Admission Date: 72-year-old female with recent right TKA a week ago presented with persistent right knee pain along with intermittent confusion X-ray right knee 1. Intact total right knee arthroplasty. No periprosthetic fracture. 2. Moderate right knee joint effusion. Right knee soft tissue swelling. CT abdomen/pelvis 1. Moderate gallbladder distention with mild adjacent stranding. A right upper quadrant ultrasound is recommended to evaluate for acute cholecystitis. 2. No bowel obstruction. Moderate amount of stool within the colon and rectum. 3. Right thigh stranding, partially imaged on this exam. This is nonspecific although may be postsurgical. Consideration might be given to further evaluation with right lower extremity venous Doppler ultrasound. 4. Borderline dilated appendix which contains hyperdense material. No evidence for acute appendicitis. CT head- No significant change compared to the prior study. No acute intracranial abnormality. Right upper quadrant ultrasound- 1. Moderate gallbladder distention. Sludge within the gallbladder with no gallstones. No sonographic Whitfield sign. These findings do not strongly suggest acute cholecystitis although a hepatobiliary scan could be obtained if indicated. 2. No biliary ductal dilatation. Status post right TKA with persistent right knee pain-right TKA 1 week back but having persistent pain and swelling despite Percocet 2 tabs every 6 hours. Does not have evidence of cellulitis or infection. Low concern for septic arthritis at this point as no fever or leukocytosis. Also low concern for DVT as she was appropriately bridged with Lovenox and her INR is currently supratherapeutic. Ice wrap helps. Will continue ice, IV Dilaudid as needed along with as needed oxycodone and scheduled Tylenol. Ortho consult, PT OT candice. Altered mental status-Per son, related to pain and improved once pain is controlled. Patient is awake alert oriented x4 during my encounter in the ED as pain has been controlled. Likely delirium related to pain. CT head negative, no need for MRI at this point. Continue delirium precautions. Pain management as above Chronic constipation-records enema couple times a week at home. Last bowel movement was yesterday morning after enema continues. We will continue laxatives. Enema as needed. Supratherapeutic INR on Coumadin for history of PE x2 and paroxysmal atrial fibrillation- INR 5.3. No evidence of bleeding. We will hold Coumadin until INR drifts down to therapeutic range. Recheck INR daily. -Home dose of Coumadin is 7.5 mg TTS and 5 mg rest of the week Paroxysmal atrial fibrillation-currently in sinus rhythm. Continue home Toprol. INR supratherapeutic on Coumadin, plan as above. DVT prophylaxis-hold home Coumadin as INR supratherapeutic Disposition-MedSurg on telemetry. Patient might need rehab-PT OT consulted DNR/DNI-discussed at bedside in presence of son Updated son at bedside History of Present Illness Chief Complaint: Uncontrolled R knee pain, Confusion Primary Care Provider: Perfecto Sauceda DO 72-year-old female with recent right TKA [address] Thomson presented to ED today with persistent right knee pain despite Percocet, along with int ermittent confusion/hallucination. Prior to discharge, patient was noted to have mild delirium attributed to anesthesia and was discharged home in stable condition. However since discharge, she was having persistent right knee pain despite Percocet 2 tabs every 6 hours. Also she had intermittent confusion, with her son noted to be related to her pain. States that when her pain is improved, her confusion is improved but when her pain is worse, her confusion gets worse. Also she had some hallucinations this morning-she was talking about feeding horses but they do not have horses. She also mistook her son for her . Upon presenting to the ED, patient was given fentanyl and her pain was much improved and her confusion had significantly improved. During my encounter, she was awake, alert, oriented x4 and was conversing appropriately. Denies any fever or chills at home. No nausea, vomiting, abdominal pain, shortness of breath, chest pain. Has persistent right knee pain and swelling but no drainage, discharge or erythema. Has chronic constipation despite stool softeners and has to take enema couple times a week, last one was 2 days back and had a bowel movement yesterday morning. Allergies Allergy/AdvReac Type Severity Reaction Status Date / Time Iodinated Contrast Media Allergy Intermediate Hives Verified 02/27/23 09:32 Home Medications Medication Instructions Recorded Confirmed Type albuterol sulfate 90 mcg/actuation 2 puff inhalation Q6H PRN 09/09/18 03/06/23 History aerosol inhaler (Ventolin HFA) Shortness Of Breath calcium carbonate 600 mg calcium 600 mg PO QAM 12/15/18 03/06/23 History (1,500 mg) tablet (Calcium) omeprazole 20 mg capsule,delayed 20 mg PO QAM 12/15/18 03/06/23 History release warfarin 5 mg tablet 5 mg PO 4XWK 12/15/18 03/06/23 History warfarin 5 mg tablet 7.5 mg PO 3XWK 12/15/18 03/06/23 History atorvastatin 40 mg tablet 40 mg PO QAM 04/14/21 03/06/23 History duloxetine 60 mg capsule,delayed 60 mg PO HS 04/14/21 03/06/23 History release buspirone 5 mg tablet 10 mg PO BID 01/11/22 03/06/23 History gabapentin 300 mg capsule 300 mg PO TID 01/11/22 03/06/23 History ondansetron 4 mg disintegrating 4 - 8 mg PO Q8H PRN nausea and 01/12/22 03/06/23 Rx tablet vomiting #14 tabs aspirin 81 mg tablet,delayed 81 mg PO QAM 01/13/22 03/06/23 History release alendronate 70 mg tablet 70 mg PO WK 01/13/23 03/06/23 History cholecalciferol (vitamin D3) 50 50 mcg PO QAM 01/13/23 03/06/23 History mcg (2,000 unit) capsule (Vitamin D3) cyanocobalamin (vitamin B-12) 1,000 mcg PO QAM 01/13/23 03/06/23 History 1,000 mcg tablet (Vitamin B-12) guaifenesin 600 mg tablet, 600 mg PO BID PRN Congestion 01/13/23 03/06/23 History extended release 12 hr (Mucinex) hydroxyzine HCl 10 mg tablet 10 mg PO TID 01/13/23 03/06/23 History indapamide 1.25 mg tablet 1.25 mg PO QAM 01/13/23 03/06/23 History metoprolol succinate 50 mg 50 mg PO QAM 01/13/23 03/06/23 History tablet,extended release 24 hr (Toprol XL) tiotropium bromide 2.5 2 inh inhalation QAM 01/13/23 03/06/23 History mcg/actuation mist for inhalation (Spiriva Respimat) oxycodone-acetaminophen 5 mg-325 1 - 2 tab PO Q6H PRN pain #40 tabs 03/03/23 03/06/23 Rx mg tablet (Percocet) furosemide 40 mg tablet 40 mg PO DAILY 03/06/23 03/06/23 History potassium chloride 10 mEq 10 meq PO QAM 03/06/23 03/06/23 History tablet,extended release Past Med/Surg History Medical History A-fib Paroxysmal Follows with [facility] Taking warfarin Arthritis Chronic pain Emphysema lung History of pulmonary embolism 2019, Taking warfarin Hyperlipidemia Hypertension Lupus Memory loss Migraine Poor historian TIA (transient ischemic attack) 2019 Surgical History History of arthroscopy of left shoulder History of arthroscopy of right shoulder History of bilateral cataract extraction History of sinus surgery History of tooth extraction all upper teeth History of total hysterectomy with bilateral salpingo-oophorectomy (BSO) S/P trigger finger release Right trigger finger release (04/29/21): [facility] at [facility] Family History Other Cancer Heart disease Hypertension No family history of adverse response to anesthesia Social History Smoking Status: Current every day smoker Tobacco Type: Cigarettes Cigarettes Per Day: 2 cigs/day; Second Hand Exposure: No; Do You Dip or Chew Tobacco: No; Hx Alcohol Use: No Hx Substance Use: No Preferred Language: Ivorian Communication Ability: Effective Visual Impairment: No Limitations [employer] Required: No Beliefs That Will Affect Care: None marital status: Current Living Situation: Spouse current occupational status: retired Feels Safe at Home: Yes Assistive Devices: Glasses and Walker Review of Systems Review of Systems: All systems reviewed & are unremarkable except as noted in Subjective Physical Exam Physical Exam: General: Lying in bed, some discomfort due to pain but not in acute distress, on room air HEENT: EOMI, DENISE, MMM Chest: Clear breath sounds bilaterally, no wheezes or crackles CVS: Regular rate and rhythm, normal heart sounds, no murmur Abdomen: Soft, non tender, not distended, normal bowel sounds Neuro: Awake, alert, oriented x4, conversing well, non focal MSK: Rt knee incision clean dry intact and well approximated with edelmira, swollen, warm, mildly tender, no cellulitis or discharge noted Results & Data Results & Data Vital Signs (Past 12 Hours) Vital Signs Temp Pulse Pulse Resp BP BP Pulse Ox 03/06/23 17:26 83 19 143/67 H 94 03/06/23 15:31 96 H 17 144/59 H 03/06/23 15:18 82 18 127/55 L 95 03/06/23 15:14 80 18 90 03/06/23 14:46 94 H 19 117/60 92 03/06/23 13:30 119/63 03/06/23 13:49 84 03/06/23 13:11 74 18 137/67 91 03/06/23 11:42 37.1 C 20 124/76 93 O2 Del Method 03/06/23 17:26 Room Air 03/06/23 15:31 03/06/23 15:18 Room Air 03/06/23 15:14 Room Air 03/06/23 14:46 Room Air 03/06/23 13:30 03/06/23 13:49 03/06/23 13:11 Room Air 03/06/23 11:42 Room Air Laboratory Results Short CBC 03/06/23 Range/Units 12:38 WBC 9.58 (4.8-10.8) K/ul Hgb 12.1 (12.0-16.0) g/dl Hct 36.8 L (37.0-47.0) % Plt Count 413 H (130-400) K/uL BMP 03/06/23 12:38 Sodium 136 Potassium 4.0 Chloride 98 Carbon Dioxide 32 BUN 13 Creatinine 0.65 Glucose 94 Calcium 8.9 Liver Function 03/06/23 Range/Units 12:38 Total Bilirubin 1.2 H (0.2-1.0) mg/dl AST 24 (13-39) U/L ALT 24 (7-52) U/L Alkaline Phosphatase 59 (34-104) U/L Albumin 3.7 (3.4-5.0) gm/dl Urine 03/06/23 Range/Units 13:11 Urine Color Yellow Urine Appearance Clear (Clear) Urine pH 7.0 (4.5-7.5) Ur Specific [place] 1.008 (1.000-1.030) Urine Protein Negative (Negative) Urine Glucose (UA) Negative (Negative) Diagnostic Findings Chest X-Ray 03/06/23 12:24 XR chest 1V portable HISTORY: 72 years-old Female weakness acute weakness COMPARISON: 01/13/2022 TECHNIQUE: AP view of the chest FINDINGS: Cardiomediastinal and hilar silhouettes are within normal limits. Atherosclerosis of the aorta. Pulmonary emphysema. No pneumothorax, pleural effusion, airspace consolidation or pulmonary edema. Bones of the chest appear grossly intact. Mild subsegmental bibasilar atelectasis versus scarring. IMPRESSION: No acute process ACT 112: Negative or not required by law. The above report was generated using voice recognition software. It may contain grammatical, syntax or spelling errors. Electronically signed by: Alexei Francisco M.D. 03/06/2023 1:33 PM Abdomen/Pelvis CT 03/06/23 14:25 CT OF THE ABDOMEN AND PELVIS WITHOUT CONTRAST CLINICAL HISTORY: Right flank to RLq pain, on AC recent R knee surgery COMPARISON STUDY: CT of the abdomen and pelvis January 13, 2022. TECHNIQUE: Axial images of the abdomen and pelvis were obtained without IV contrast. Images were reviewed in the axial, sagittal, and coronal planes. Automated exposure control was utilized for the study. A dose lowering technique was utilized adhering to the principles of ALARA. FINDINGS: There is mild elevation the right hemidiaphragm. No pneumatosis, free air or portal venous gas is present. No renal, ureteral or bladder calculi are present. There is no hydronephrosis or hydroureter. Capsular calcifications within the left kidney are unchanged. Evaluation of the remainder of the abdomen and pelvis is suboptimal on this unenhanced exam. Hypodense bilateral adrenal nodules are unchanged from earlier exams. These are benign given stability. Unenhanced images of the liver, spleen and pancreas are normal. Moderate gallbladder distention is noted. There is mild adjacent infiltration. The ileocecal valve and proximal right colon are now within the right upper quadrant with displacement of the right hepatic lobe. The appendix is mildly dilated containing hyperdense material. There is no adjacent infiltration. There is no evidence for acute appendicitis. There is no evidence for a bowel obstruction. A moderate amount of stool within the colon and rectum is present. There is no fluid collection. Asymmetric right thigh stranding is partially imaged. IMPRESSION: 1. Moderate gallbladder distention with mild adjacent stranding. A right upper quadrant ultrasound is recommended to evaluate for acute cholecystitis. 2. No bowel obstruction. Moderate amount of stool within the colon and rectum. 3. Right thigh stranding, partially imaged on this exam. This is nonspecific although may be postsurgical. Consideration might be given to further evaluation with right lower extremity venous Doppler ultrasound. 4. Borderline dilated appendix which contains hyperdense material. No evidence for acute appendicitis. ACT 112: Negative or not required by law. Electronically signed by: Ayush Neff M.D. 03/06/2023 3:[address] 03/06/23 14:[address] DOSE: HISTORY: hallucinations TECHNIQUE: Multiaxial CT images of the head were performed without the use of intravenous contrast. Automated exposure control was utilized for this study. A dose lowering technique was utilized adhering to the principles of ALARA. Comparison: Head CT 08/12/2020. Findings: Postoperative changes again noted within the paranasal sinuses. The mastoid air cells are clear. The calvarium and skull base are intact. There is no mass, hematoma, midline shift, acute infarct. White matter hypodensity is nonspecific but suggestive of microvascular ischemic change. The ventricles and sulci demonstrate mild age-related involutional changes. Impression: No significant change compared to the prior study. No acute intracranial abnormality. ACT 112: Negative or not required by law. Electronically signed by: Fox Mckeon M.D. 03/06/2023 3:25 PM Knee X-Ray 03/06/23 14:44 XR knee RT 1 or 2V routine CLINICAL HISTORY: Right knee pain following fall. COMPARISON: Right knee radiographs February 27, 2023. FINDINGS: Alignment of the right knee arthroplasty is anatomic. There is no periprosthetic fracture. Skin edelmira are noted. Moderate right knee joint effusion is present. There is right knee soft tissue swelling. IMPRESSION: 1. Intact total right knee arthroplasty. No periprosthetic fracture. 2. Moderate right knee joint effusion. Right knee soft tissue swelling. ACT 112: Negative or not required by law. Electronically signed by: Ayush Neff M.D. 03/06/2023 3:08 PM Gallbladder Ultrasound 03/06/23 15:57 US gallbladder CLINICAL HISTORY: Right-sided abdominal pain. COMPARISON STUDY: CT of the abdomen and pelvis performed earlier today. FINDINGS: The liver is sonographically normal. There is no biliary ductal dilatation. The common bile duct measures 5 mm in caliber. The gallbladder is moderately distended. Sludge within the gallbladder is noted. There are no gallstones. There is no significant gallbladder wall thickening. No sonographic Whitfield sign was elicited. Pancreas is unremarkable by sonography. There is no right hydronephrosis. IMPRESSION: 1. Moderate gallbladder distention. Sludge within the gallbladder with no gallstones. No sonographic Whitfield sign. These findings do not strongly suggest acute cholecystitis although a hepatobiliary scan could be obtained if indicated. 2. No biliary ductal dilatation. ACT 112: Negative or not required by law. Electronically signed by: Ayush Neff M.D. 03/06/2023 5:00 PM
[2023-03-06] MEDS ORDERED: ALBUTEROL HFA 8 GM INHALER INH PRN (21:44)
[2023-03-06] MEDS: ACETAMINOPHEN 500 MG TAB PO SCH (22:27)
[2023-03-06] MEDS: GABAPENTIN 300 MG CAP PO SCH (22:30)
[2023-03-06] MEDS: DULoxetine HCL 60 MG CAP PO SCH (22:30)
[2023-03-06] MEDS: busPIRone 5 MG TAB PO SCH (22:31)
[2023-03-06] MEDS: DOCUSATE SODIUM/SENNA 50/8.6MG TAB PO SCH (22:33)
[2023-03-07] MEDS: ACETAMINOPHEN 500 MG TAB PO SCH ×3 (05:12→20:49)
[2023-03-07 06:39] LABS: Hematocrit (blood only) 29.7 % (37.0-47.0); Hemoglobin 9.8 g/dl (12.0-16.0); Mean Corpuscular Hemoglobin 30.4 pg (25.0-34.0); Mean Corpuscular Volume 92.2 fL (80.0-100.0); Mean Platelet Volume 8.8 fL (9.4-12.4); Platelet Count 332 K/uL (130-400); RDW Coefficient of Variation 13.2 % (11.5-14.5); Red Blood Count 3.22 M/uL (4.20-5.40); White Blood Count 7.74 K/ul (4.8-10.8)
[2023-03-07 06:54] LABS: Albumin Globulin Ratio 1.2 (0.9-2); Albumin Level 2.9 gm/dl (3.4-5.0); Bilirubin,Total 0.9 mg/dl (0.2-1.0); Calcium 7.9 mg/dl (8.6-10.3); Creatinine Clr Calc Pharmacy 94.9 ml/min; Est GFR (African American) 109.1 ml/min; Est GFR (Non-African American) 94.1 ml/min; Globulin 2.5 gm/dl (2.5-4.0); Phosphorus 2.9 mg/dl (2.5-4.9); Potassium 3.6 mmol/L (3.5-5.1); Total Protein 5.4 gm/dl (6.0-8.3)
--- NOTE | 2023-03-07 07:15 | Orthopedic Consultation ---
Date of Service March 07, 2023 Assessment & Plan (1) Status post right knee replacement: She seems to be doing fairly well with her knee, however, she is having difficulty with the pain medications and with her Coumadin. Her knee looks fine on x-ray and the incision looks good. There is no signs of infection. She can continue physical therapy as normally directed. She is having some hallucinations and cognitive changes from the pain medications. She is also supratherapeutic with a 5.2 INR. The hospitalist will continue to work on her pain control as well as her INR. She can be up and ambulating with physical therapy. She is orthopedically stable for discharge when medically ready. History of Present Illness Reason for Consultation: 1 week status post right knee replacement. Requesting Physician: . Attending Physician: Lavell Kemp MD Carmen is a pleasant 72-year-old female who underwent a right knee replacement a week ago. Postoperatively she was started on bridging Lovenox and back on her Coumadin. She was having excessive swelling and pain of her right knee. She came to the emergency room. Lab work showed a supratherapeutic INR of 5.2. She was admitted to the hospital for treatment and observation.. Allergies Allergy/AdvReac Type Severity Reaction Status Date / Time Iodinated Contrast Media Allergy Intermediate Hives Verified 02/27/23 09:32 Home Medications Medication Instructions Recorded Confirmed Type albuterol sulfate 90 mcg/actuation 2 puff inhalation Q6H PRN 09/09/18 03/06/23 History aerosol inhaler (Ventolin HFA) Shortness Of Breath calcium carbonate 600 mg calcium 600 mg PO QAM 12/15/18 03/06/23 History (1,500 mg) tablet (Calcium) omeprazole 20 mg capsule,delayed 20 mg PO QAM 12/15/18 03/06/23 History release warfarin 5 mg tablet 5 mg PO 4XWK 12/15/18 03/06/23 History warfarin 5 mg tablet 7.5 mg PO 3XWK 12/15/18 03/06/23 History atorvastatin 40 mg tablet 40 mg PO QAM 04/14/21 03/06/23 History duloxetine 60 mg capsule,delayed 60 mg PO HS 04/14/21 03/06/23 History release buspirone 5 mg tablet 10 mg PO BID 01/11/22 03/06/23 History gabapentin 300 mg capsule 300 mg PO TID 01/11/22 03/06/23 History ondansetron 4 mg disintegrating 4 - 8 mg PO Q8H PRN nausea and 01/12/22 03/06/23 Rx tablet vomiting #14 tabs aspirin 81 mg tablet,delayed 81 mg PO QAM 01/13/22 03/06/23 History release alendronate 70 mg tablet 70 mg PO WK 01/13/23 03/06/23 History cholecalciferol (vitamin D3) 50 50 mcg PO QAM 01/13/23 03/06/23 History mcg (2,000 unit) capsule (Vitamin D3) cyanocobalamin (vitamin B-12) 1,000 mcg PO QAM 01/13/23 03/06/23 History 1,000 mcg tablet (Vitamin B-12) guaifenesin 600 mg tablet, 600 mg PO BID PRN Congestion 01/13/23 03/06/23 Histo ry extended release 12 hr (Mucinex) hydroxyzine HCl 10 mg tablet 10 mg PO TID 01/13/23 03/06/23 History indapamide 1.25 mg tablet 1.25 mg PO QAM 01/13/23 03/06/23 History metoprolol succinate 50 mg 50 mg PO QAM 01/13/23 03/06/23 History tablet,extended release 24 hr (Toprol XL) tiotropium bromide 2.5 2 inh inhalation QAM 01/13/23 03/06/23 History mcg/actuation mist for inhalation (Spiriva Respimat) oxycodone-acetaminophen 5 mg-325 1 - 2 tab PO Q6H PRN pain #40 tabs 03/03/23 03/06/23 Rx mg tablet (Percocet) furosemide 40 mg tablet 40 mg PO DAILY 03/06/23 03/06/23 History potassium chloride 10 mEq 10 meq PO QAM 03/06/23 03/06/23 History tablet,extended release Past Med/Surg History Medical History A-fib Paroxysmal Follows with [facility] Taking warfarin Arthritis Chronic pain Emphysema lung History of pulmonary embolism 2019, Taking warfarin Hyperlipidemia Hypertension Lupus Memory loss Migraine Poor historian TIA (transient ischemic attack) 2019 Surgical History History of arthroscopy of left shoulder History of arthroscopy of right shoulder History of bilateral cataract extraction History of sinus surgery History of tooth extraction all upper teeth History of total hysterectomy with bilateral salpingo-oophorectomy (BSO) S/P trigger finger release Right trigger finger release (04/29/21): [facility] at [facility] Family History Other Cancer Heart disease Hypertension No family history of adverse response to anesthesia Social History Smoking Status: Former smoker Tobacco Type: Cigarettes Cigarettes Per Day: 2 cigs/day; Second Hand Exposure: No; Do You Dip or Chew Tobacco: No; Tobacco Cessation Education Requested by Patient: No Hx Alcohol Use: Yes Hx Substance Use: No Preferred Language: British Communication Ability: Effective Visual Impairment: No Limitations Data Services Developer Required: No Beliefs That Will Affect Care: None marital status: Current Living Situation: Family current occupational status: retired Other Information That Helps Us Care for You: No Feels Safe at Home: Yes Safety Concerns: Feels Safe At This Time Assistive Devices: Oxygen - Continuous Review of Systems All systems reviewed & are unremarkable except as noted in HPI & below. Physical Exam On physical examination of the right knee, there is swelling of the leg. There are some ecchymosis proximally around the tourniquet site. The incision looks really good. There is no drainage from the incision. There is no cellulitis or signs of infection.. Results & Data Results & Data Laboratory Results . Diagnostic Findings X-rays reviewed of the right knee show the prosthesis to be in anatomic alignment without any evidence of fracture, screws, or loosening. PG Care Time/CCT Total # of Minutes Spent Total Time Spent with Patient: Total time spent is greater than 50% in coordination of care (as documented) at patient's floor/unit and/or counseling patient: Coding Level of Care Code None Diagnoses Status post right knee replacement Z96.651
[2023-03-07 07:16] LABS: Prothrombin Time 55.8 Seconds (9.0-12.0)
[2023-03-07 07:26] LABS: INR 5.7 (0.9-1.1)
[2023-03-07] MEDS ORDERED: PHYTONADIONE 2.5 MG in DEXTROSE 5% 50 ML IV ONE (07:53)
[2023-03-07] MEDS: ASPIRIN 81 MG ECTAB PO SCH (08:20)
--- NOTE | 2023-03-07 08:21 | XRay Report ---
XR knee RT 1 or 2V routine CLINICAL HISTORY: Hemoglobin dropping w/ high PT INR/?? Increasing effusion COMPARISON STUDY: Right knee radiograph 03/06/2023. FINDINGS: Status post right total knee arthroplasty. The hardware appears intact. No fracture or disl ocation. Skin edelmira are in place. Vascular calcifications are noted. Diffuse soft tissue swelling p ersists. Moderate right knee effusion. This is similar to the prior study. IMPRESSION: 1. Right total knee arthroplasty. The hardware appears intact. 2. Moderate right knee effusion which is similar to the prior study. ACT 112: Negative or not required by law. Electronically signed by: Fox Mckeon M.D. 03/07/2023 8:20 AM
[2023-03-07] MEDS: POLYETHYLENE (MIRALAX) 17 GM PACK PO SCH (09:07)
[2023-03-07] MEDS: METOPROLOL SUCC 50MG EXT REL TAB PO SCH (09:07)
[2023-03-07] MEDS: busPIRone 5 MG TAB PO SCH ×2 (09:07→20:50)
[2023-03-07] MEDS: DOCUSATE SODIUM/SENNA 50/8.6MG TAB PO SCH ×2 (09:08→20:50)
[2023-03-07] MEDS: CHOLECALCIFEROL 1,000 UNITS 25 MCG TAB PO SCH (09:08)
[2023-03-07] MEDS: ATORVASTATIN 40 MG TAB PO SCH (09:08)
[2023-03-07] MEDS: POTASSIUM CHLORIDE 10 MEQ TABCR PO SCH (09:08)
[2023-03-07] MEDS: PANTOprazole 40 MG TAB PO SCH (09:08)
[2023-03-07] MEDS: UMECLIDINIUM BROMIDE 62.5MCG/BLISTER 7 PUFFS/INHALER INH SCH (09:08)
[2023-03-07] MEDS: INDAPAMIDE 1.25 MG TAB PO SCH (09:08)
[2023-03-07] MEDS: CALCIUM CARBONATE 1250MG TAB PO SCH (09:08)
[2023-03-07] MEDS: GABAPENTIN 300 MG CAP PO SCH ×3 (09:08→20:49)
[2023-03-07] MEDS: CYANOCOBALAMIN (B-12) 500 MCG TABLET PO SCH (09:08)
[2023-03-07 14:06] LABS: INR 2.1 (0.9-1.1); Prothrombin Time 22.3 Seconds (9.0-12.0)
--- NOTE | 2023-03-07 15:18 | Hospitalist Progress Note ---
Date of Service March 07, 2023 Assessment & Plan (1) AMS (altered mental status): (2) Status post right knee replacement: (3) Supratherapeutic INR: (4) COPD (chronic obstructive pulmonary disease): Plan Toxic encephalopathy secondary to pain medication use Right knee effusion/recent status post right knee replacement Supratherapeutic INR: on Coumadin for history of PE x2 and paroxysmal atrial fibrillation. Home dose of Coumadin is 7.5 mg TTS and 5 mg rest of the week Hemoglobin drop: Hemoglobin dropped since presentation (12.1 to 9.8), closely monitor H&H given recent knee surgery and admitting supratherapeutic INR. Patient denies any hematemesis/hematochezia/black or bloody stool/any other bleeding wound. Patient came in with intermittent confusion, has been taking a lot of pain medication at home as her knee pain was not being controlled. Admitting CT head with no acute findings. Admitting knee x-ray and follow-up knee x-ray with moderate right knee joint effusion Patient declines severe pain at her right knee today, has not taken her as needed pain medications. PT/OT, recommends home with home health. We will monitor her H&H tomorrow morning and if it is deemed stable we can discharge her. Patient will need to closely follow-up with Coumadin clinic for dose adjustment of her warfarin. Orthopedic evaluated, appreciate recommendation. Mentation getting better. Continue delirium precautions. Chronic constipation: records enema couple times a week at home. We will continue laxatives. Enema as needed. Paroxysmal atrial fibrillation-currently in sinus rhythm. Continue home Toprol. Continue with Coumadin when INR therapeutic. DVT prophylaxis: Therapeutic INR Disposition: Pending H&H stabilizes and, possible discharge tomorrow with home health. DNR/DNI Admission and Anticipated Discharge Date Admission Date: March 06, 2023 Subjective Patient seen and examined at bedside as a follow-up of toxic encephalopathy likely secondary to pain medication use, right knee effusion and pain on the background of recent right knee replacement. Patient was sitting up in chair, on room air, NAD, reports better control of knee pain today but has not used any pain medication in the hospital. Patient reports eating okay and moving bowels okay. Patient denies any fever or chills in the last 1 week. Patient does not have any knee pain during palpation and passive movement. Due to drop in hemoglobin associated with increasing INR, x-ray knee was repeated and vitamin K was given. Plan to resume reduced dose of warfarin once INR therapeutic. Physical Exam Physical Exam: General: Lying in bed, not in acute distress, on room air HEENT: EOMI, DEINSE, MMM Chest: Clear breath sounds bilaterally, no wheezes or crackles CVS: Regular rate and rhythm, normal heart sounds, no murmur Abdomen: Soft, non tender, not distended, normal bowel sounds Neuro: Awake, alert, oriented x4, conversing well, non focal MSK: Rt knee incision clean dry intact and well approximated with edelmira, swollen, warm, mildly tender, no cellulitis or discharge noted Results & Data Results & Data Vital Signs (Past 12 Hours) Vital Signs Temp Pulse Pulse Resp BP Pulse Ox O2 Del Method 03/07/23 15:09 37.2 C 75 18 115/67 90 Room Air 03/07/23 15:01 85 03/07/23 11:31 36.9 C 78 18 124/74 94 Room Air 03/07/23 07:36 36.9 C 84 16 123/67 92 Room Air 03/07/23 07:05 82
[2023-03-07] MEDS: WARFARIN SOD 5 MG TAB PO SCH (16:39)
[2023-03-07] MEDS: oxyCODONE HCL IR 5 MG TAB (IMMEDIATE RELEASE) PO PRN (16:41)
[2023-03-07] MEDS: DULoxetine HCL 60 MG CAP PO SCH (20:50)
[2023-03-08] MEDS: oxyCODONE HCL IR 5 MG TAB (IMMEDIATE RELEASE) PO PRN (00:12)
[2023-03-08] MEDS: ACETAMINOPHEN 500 MG TAB PO SCH ×3 (06:06→20:08)
[2023-03-08 07:51] LABS: Hematocrit (blood only) 30.6 % (37.0-47.0); Mean Corpuscular Hemoglobin 30.1 pg (25.0-34.0); Mean Corpuscular Hgb Conc 32.7 g/dL (32.0-36.0); Mean Corpuscular Volume 92.2 fL (80.0-100.0); Mean Platelet Volume 8.7 fL (9.4-12.4); Platelet Count 357 K/uL (130-400); RDW Coefficient of Variation 13.3 % (11.5-14.5); RDW Standard Deviation 45.1 fL (36.4-46.3); Red Blood Count 3.32 M/uL (4.20-5.40); White Blood Count 8.79 K/ul (4.8-10.8)
[2023-03-08 08:07] LABS: INR 1.3 (0.9-1.1); Prothrombin Time 14.1 Seconds (9.0-12.0)
[2023-03-08 08:19] LABS: BUN Creatinine Ratio 22.8 (10-20); Calcium 8.5 mg/dl (8.6-10.3); Creatinine Clr Calc Pharmacy 85.8 ml/min; Est GFR (African American) 105.8 ml/min; Est GFR (Non-African American) 91.3 ml/min; Magnesium 1.8 mg/dl (1.7-2.4); Phosphorus 3.1 mg/dl (2.5-4.9); Potassium 3.7 mmol/L (3.5-5.1)
[2023-03-08] MEDS ORDERED: ONDANSETRON 4 MG OD TAB PO PRN (08:56)
[2023-03-08] MEDS: HYDROmorphone INJ 1 MG/ML SYRINGE IV PRN ×2 (10:14→15:48)
[2023-03-08] MEDS: POTASSIUM CHLORIDE 10 MEQ TABCR PO SCH (10:16)
[2023-03-08] MEDS: GABAPENTIN 300 MG CAP PO SCH ×3 (10:17→20:05)
[2023-03-08] MEDS: METOPROLOL SUCC 50MG EXT REL TAB PO SCH (10:17)
[2023-03-08] MEDS: POLYETHYLENE (MIRALAX) 17 GM PACK PO SCH (10:17)
[2023-03-08] MEDS: DOCUSATE SODIUM/SENNA 50/8.6MG TAB PO SCH ×2 (10:17→20:07)
[2023-03-08] MEDS: PANTOprazole 40 MG TAB PO SCH (10:17)
[2023-03-08] MEDS: INDAPAMIDE 1.25 MG TAB PO SCH (10:17)
[2023-03-08] MEDS: CALCIUM CARBONATE 1250MG TAB PO SCH (10:18)
[2023-03-08] MEDS: CYANOCOBALAMIN (B-12) 500 MCG TABLET PO SCH (10:18)
[2023-03-08] MEDS: CHOLECALCIFEROL 1,000 UNITS 25 MCG TAB PO SCH (10:18)
[2023-03-08] MEDS: busPIRone 5 MG TAB PO SCH ×2 (10:18→20:07)
[2023-03-08] MEDS: UMECLIDINIUM BROMIDE 62.5MCG/BLISTER 7 PUFFS/INHALER INH SCH (10:19)
[2023-03-08] MEDS: ATORVASTATIN 40 MG TAB PO SCH (10:19)
[2023-03-08] MEDS: ASPIRIN 81 MG ECTAB PO SCH (10:19)
[2023-03-08] MEDS: WARFARIN SOD 5 MG TAB PO SCH (15:37)
--- NOTE | 2023-03-08 16:53 | Hospitalist Progress Note ---
Date of Service March 08, 2023 Assessment & Plan (1) AMS (altered mental status): (2) Status post right knee replacement: (3) Supratherapeutic INR: (4) COPD (chronic obstructive pulmonary disease): Plan Toxic encephalopathy secondary to pain medication use Right knee effusion/recent status post right knee replacement Supratherapeutic INR: on Coumadin for history of PE x2 and paroxysmal atrial fibrillation. Home dose of Coumadin is 7.5 mg TTS and 5 mg rest of the week Hemoglobin drop: Hemoglobin dropped since presentation (12.1 to 9.8), closely monitor H&H given recent knee surgery and admitting supratherapeutic INR. Patient denies any hematemesis/hematochezia/black or bloody stool/any other bleeding wound. Patient came in with intermittent confusion, has been taking a lot of pain medication at home as her knee pain was not being controlled. Admitting CT head with no acute findings. Admitting knee x-ray and follow-up knee x-ray with moderate right knee joint effusion Patient declines severe pain at her right knee today, using as needed pain medications. PT/OT, recommends home with home health. Hemoglobin has been stable, patient has been discharged to home with home health. Patient will need to closely follow-up with Coumadin clinic for dose adjustment of her warfarin. Orthopedic evaluated, appreciate recommendation. Mentation back to baseline. Continue delirium precautions. Chronic constipation: records enema couple times a week at home. We will continue laxatives. Enema as needed. Paroxysmal atrial fibrillation-currently in sinus rhythm. Continue home Toprol. Continue with Coumadin when INR therapeutic. DVT prophylaxis: On Coumadin Disposition: Medically stable, DC to home with home health per PT/OT recommendation. DNR/DNI Admission and Anticipated Discharge Date Admission Date: March 07, 2023 Subjective Patient seen and examined at bedside as a follow-up of toxic encephalopathy likely secondary to pain medication use, right knee effusion and pain on the background of recent right knee replacement. Patient was sitting up in chair, on room air, NAD, reports better control of knee pain. Patient reports eating okay and moving bowels okay. Patient denies any fever or chills in the last 1 week. Patient does not have any knee pain during palpation and passive movement. Patient would like to go home tomorrow per my discussion at bedside. Physical Exam Physical Exam: General: Lying in bed, not in acute distress, on room air HEENT: EOMI, DENISE, MMM Chest: Clear breath sounds bilaterally, no wheezes or crackles CVS: Regular rate and rhythm, normal heart sounds, no murmur Abdomen: Soft, non tender, not distended, normal bowel sounds Neuro: Awake, alert, oriented x4, conversing well, non focal MSK: Rt knee incision clean dry intact and well approximated with edelmira, swollen, warm, mildly tender, no cellulitis or discharge noted Results & Data Results & Data Vital Signs (Past 12 Hours) Vital Signs Temp Pulse Pulse Resp BP Pulse Ox O2 Del Method 03/08/23 15:43 84 03/08/23 15:17 36.8 C 105 H 16 128/69 95 Room Air 03/08/23 12:38 36.8 C 105 H 12 145/75 H 94 Room Air 03/08/23 11:37 80 03/08/23 08:05 36.2 C L 86 20 116/70 92 Room Air
[2023-03-08] MEDS: DULoxetine HCL 60 MG CAP PO SCH (20:06)
[2023-03-09] MEDS: ACETAMINOPHEN 500 MG TAB PO SCH ×3 (05:12→22:15)
[2023-03-09 07:47] LABS: Hematocrit (blood only) 30.4 % (37.0-47.0)
[2023-03-09 08:15] LABS: INR 2.2 (0.9-1.1)
[2023-03-09] MEDS: ASPIRIN 81 MG ECTAB PO SCH (09:00)
[2023-03-09] MEDS: DOCUSATE SODIUM/SENNA 50/8.6MG TAB PO SCH ×2 (09:01→20:20)
[2023-03-09] MEDS: CHOLECALCIFEROL 1,000 UNITS 25 MCG TAB PO SCH (09:01)
[2023-03-09] MEDS: METOPROLOL SUCC 50MG EXT REL TAB PO SCH (09:02)
[2023-03-09] MEDS: PANTOprazole 40 MG TAB PO SCH (09:02)
[2023-03-09] MEDS: CYANOCOBALAMIN (B-12) 500 MCG TABLET PO SCH (09:02)
[2023-03-09] MEDS: CALCIUM CARBONATE 1250MG TAB PO SCH (09:02)
[2023-03-09] MEDS: ATORVASTATIN 40 MG TAB PO SCH (09:02)
[2023-03-09] MEDS: INDAPAMIDE 1.25 MG TAB PO SCH (09:03)
[2023-03-09] MEDS: POTASSIUM CHLORIDE 10 MEQ TABCR PO SCH (09:03)
[2023-03-09] MEDS: GABAPENTIN 300 MG CAP PO SCH ×3 (09:04→20:17)
[2023-03-09] MEDS: busPIRone 5 MG TAB PO SCH ×2 (09:04→20:16)
[2023-03-09] MEDS: POLYETHYLENE (MIRALAX) 17 GM PACK PO SCH (09:04)
[2023-03-09] MEDS: UMECLIDINIUM BROMIDE 62.5MCG/BLISTER 7 PUFFS/INHALER INH SCH (09:04)
[2023-03-09] MEDS: oxyCODONE HCL IR 5 MG TAB (IMMEDIATE RELEASE) PO PRN ×2 (09:06→20:17)
[2023-03-09] MEDS: WARFARIN SOD 5 MG TAB PO SCH (16:08)
--- NOTE | 2023-03-09 17:38 | Hospitalist Progress Note ---
Date of Service March 09, 2023 Assessment & Plan (1) AMS (altered mental status): (2) Status post right knee replacement: (3) Supratherapeutic INR: (4) COPD (chronic obstructive pulmonary disease): Plan Toxic encephalopathy secondary to pain medication use Right knee effusion/recent status post right knee replacement Supratherapeutic INR: on Coumadin for history of PE x2 and paroxysmal atrial fibrillation. Home dose of Coumadin is 7.5 mg TTS and 5 mg rest of the week Hemoglobin drop: Hemoglobin dropped since presentation (12.1 to 9.8), closely monitor H&H given recent knee surgery and admitting supratherapeutic INR. Patient denies any hematemesis/hematochezia/black or bloody stool/any other bleeding wound. Patient came in with intermittent confusion, has been taking a lot of pain medication at home as her knee pain was not being controlled. Admitting CT head with no acute findings. Admitting knee x-ray and follow-up knee x-ray with moderate right knee joint effusion Patient declines severe pain at her right knee today, using as needed pain medications. PT/OT, recommends home with home health. Hemoglobin has been stable, patient has been discharged to home with home health. Patient will need to closely follow-up with Coumadin clinic for dose adjustment of her warfarin. Orthopedic evaluated, appreciate recommendation. Mentation back to baseline. Continue delirium precautions. Continue pain management with preference to Tylenol. Chronic constipation: records enema couple times a week at home. We will continue laxatives. Enema as needed. Paroxysmal atrial fibrillation-currently in sinus rhythm. Continue home Toprol. Continue with Coumadin at reduced dose of 5 mg daily, track INR, close follow-up with Coumadin clinic on discharge. DVT prophylaxis: On Coumadin Disposition: Medically stable, DC to home with home health per PT/OT recommendation. Patient stating that she will go home tomorrow. DNR/DNI Admission and Anticipated Discharge Date Admission Date: March 07, 2023 Subjective Patient seen and examined at bedside as a follow-up of toxic encephalopathy likely secondary to pain medication use, right knee effusion and pain on the background of recent right knee replacement. Patient was sitting up in chair, on room air, NAD, reports better control of knee pain. Per RN patient is moving around better. Patient reports eating okay and moving bowels okay. Patient denies any fever or chills in the last 1 week. Patient does not have any knee pain during palpation and passive movement. Today also patient stated that she would like to go home tomorrow morning. Physical Exam Physical Exam: General: Lying in bed, not in acute distress, on room air HEENT: EOMI, DENISE, MMM Chest: Clear breath sounds bilaterally, no wheezes or crackles CVS: Regular rate and rhythm, normal heart sounds, no murmur Abdomen: Soft, non tender, not distended, normal bowel sounds Neuro: Awake, alert, oriented x4, conversing well, non focal MSK: Rt knee incision clean dry intact and well approximated with edelmira, swollen, warm, mildly tender, no cellulitis or discharge noted Results & Data Results & Data Vital Signs (Past 12 Hours) Vital Signs Temp Pulse Pulse Resp BP Pulse Ox O2 Del Method 03/09/23 15:27 36.6 C 80 18 114/62 93 Room Air 03/09/23 15:00 81 03/09/23 10:54 36.5 C 90 18 107/66 95 Room Air 03/09/23 09:30 Room Air 03/09/23 07:48 36.5 C 81 18 111/67 95 Room Air 03/09/23 07:00 76
[2023-03-09] MEDS: DULoxetine HCL 60 MG CAP PO SCH (20:17)
[2023-03-10] MEDS: oxyCODONE HCL IR 5 MG TAB (IMMEDIATE RELEASE) PO PRN ×3 (03:17→18:58)
[2023-03-10 03:49] LABS: Appearance Urine Cloudy (Clear); Bacteria Urine Automated 2+ (Negative); Bilirubin Urine Negative (Negative); Blood Urine Negative (Negative); Cast Urine Automated 0 /lpf (0-5); Color Urine Yellow; Glucose Urine UA Negative (Negative); Ketones Urine Negative (Negative); Leukocyte Esterase Urine 2+ (Negative); Nitrite Urine Negative (Negative); Protein Urine Negative (Negative); RBC Urine Automated 0-4 /hpf (0-4); Specific Gravity Urine 1.012 (1.000-1.030); Urobilinogen Urine Negative (Negative); WBC Urine Automated >30 /hpf (0-5)
[2023-03-10] MEDS: ACETAMINOPHEN 500 MG TAB PO SCH ×3 (06:23→20:37)
[2023-03-10] MEDS: cefTRIAXone SODIUM 2,000 MG in DEXTROSE 5% 50 ML IV SCH (08:18)
[2023-03-10 08:39] LABS: INR 3.1 (0.9-1.1); Prothrombin Time 31.4 Seconds (9.0-12.0)
[2023-03-10 09:36] LABS: Hematocrit (blood only) 30.9 % (37.0-47.0); Hemoglobin 10.1 g/dl (12.0-16.0)
[2023-03-10] MEDS: ATORVASTATIN 40 MG TAB PO SCH (10:23)
[2023-03-10] MEDS: ASPIRIN 81 MG ECTAB PO SCH (10:23)
[2023-03-10] MEDS: CYANOCOBALAMIN (B-12) 500 MCG TABLET PO SCH (10:24)
[2023-03-10] MEDS: busPIRone 5 MG TAB PO SCH ×2 (10:24→20:38)
[2023-03-10] MEDS: CALCIUM CARBONATE 1250MG TAB PO SCH (10:24)
[2023-03-10] MEDS: CHOLECALCIFEROL 1,000 UNITS 25 MCG TAB PO SCH (10:24)
[2023-03-10] MEDS: GABAPENTIN 300 MG CAP PO SCH ×3 (10:25→20:37)
[2023-03-10] MEDS: INDAPAMIDE 1.25 MG TAB PO SCH (10:25)
[2023-03-10] MEDS: METOPROLOL SUCC 50MG EXT REL TAB PO SCH (10:25)
[2023-03-10] MEDS: PANTOprazole 40 MG TAB PO SCH (10:26)
[2023-03-10] MEDS: DOCUSATE SODIUM/SENNA 50/8.6MG TAB PO SCH ×2 (10:33→20:37)
[2023-03-10] MEDS: POLYETHYLENE (MIRALAX) 17 GM PACK PO SCH (10:33)
[2023-03-10] MEDS: POTASSIUM CHLORIDE 10 MEQ TABCR PO SCH (10:38)
[2023-03-10] MEDS: UMECLIDINIUM BROMIDE 62.5MCG/BLISTER 7 PUFFS/INHALER INH SCH (12:08)
--- NOTE | 2023-03-10 16:33 | Hospitalist Progress Note ---
Date of Service March 10, 2023 Assessment & Plan (1) AMS (altered mental status): (2) Status post right knee replacement: (3) Supratherapeutic INR: (4) COPD (chronic obstructive pulmonary disease): Plan Toxic encephalopathy secondary to pain medication use Right knee effusion/recent status post right knee replacement Supratherapeutic INR: on Coumadin for history of PE x2 and paroxysmal atrial fibrillation. Home dose of Coumadin is 7.5 mg TTS and 5 mg rest of the week Hemoglobin drop: Hemoglobin dropped since presentation (12.1 to 9.8), closely monitor H&H given recent knee surgery and admitting supratherapeutic INR. Patient denies any hematemesis/hematochezia/black or bloody stool/any other bleeding wound. Patient came in with intermittent confusion, has been taking a lot of pain medication at home as her knee pain was not being controlled. Admitting CT head with no acute findings. Admitting knee x-ray and follow-up knee x-ray with moderate right knee joint effusion Patient declines severe pain at her right knee today, using as needed pain medications. PT/OT, recommends home with home health. Hemoglobin has been stable, patient has been discharged to home with home health. Patient will need to closely follow-up with Coumadin clinic for dose adjustment of her warfarin. Orthopedic evaluated, appreciate recommendation. Mentation back to baseline. Continue delirium precautions. Continue pain management with preference to Tylenol. Acute UTI: Pain or burning with passing urine 03/10, Rocephin started 03/10. To p.o. antibiotic on discharge. Chronic constipation: records enema couple times a week at home. We will continue laxatives. Enema as needed. Paroxysmal atrial fibrillation-currently in sinus rhythm. Continue home Toprol. Continue with Coumadin at reduced dose of 5 mg daily, track INR, close follow-up with Coumadin clinic on discharge. DVT prophylaxis: On Coumadin Disposition: Medically stable, DC to home with home health per PT/OT recommendation. Patient stating that she will go home tomorrow. DNR/DNI Admission and Anticipated Discharge Date Admission Date: March 07, 2023 Subjective Patient seen and examined at bedside as a follow-up of toxic encephalopathy likely secondary to pain medication use, right knee effusion and pain on the background of recent right knee replacement. Patient was sitting up in chair, on room air, NAD, reports better control of knee pain. Per RN patient is moving around better. Patient reports eating okay and moving bowels okay. Patient denies any fever or chills in the last 1 week. Patient does not have any knee pain during palpation and passive movement. Today again she stated that she would like to go home tomorrow morning. she had burning w/ urine while passing urine, rocephin started. Physical Exam Physical Exam: General: Lying in bed, not in acute distress, on room air HEENT: EOMI, DENISE, MMM Chest: Clear breath sounds bilaterally, no wheezes or crackles CVS: Regular rate and rhythm, normal heart sounds, no murmur Abdomen: Soft, non tender, not distended, normal bowel sounds Neuro: Awake, alert, oriented x4, conversing well, non focal MSK: Rt knee incision clean dry intact and well approximated with edelmira, swollen, warm, mildly tender, no cellulitis or discharge noted Results & Data Results & Data Vital Signs (Past 12 Hours) Vital Signs Temp Pulse Pulse Resp BP Pulse Ox O2 Del Method 03/10/23 15:26 37.0 C 72 18 112/62 92 Room Air 03/10/23 08:00 79 03/10/23 12:19 37.0 C 86 18 110/63 96 Room Air 03/10/23 07:26 37.0 C 81 18 109/63 94 Room Air
[2023-03-10] MEDS: DULoxetine HCL 60 MG CAP PO SCH (20:38)
[2023-03-11] MEDS: oxyCODONE HCL IR 5 MG TAB (IMMEDIATE RELEASE) PO PRN (04:44)
[2023-03-11] MEDS: ACETAMINOPHEN 500 MG TAB PO SCH ×2 (06:00→14:38)
[2023-03-11] MEDS: cefTRIAXone SODIUM 2,000 MG in DEXTROSE 5% 50 ML IV SCH (06:01)
[2023-03-11] MEDS: busPIRone 5 MG TAB PO SCH (08:24)
[2023-03-11] MEDS: ASPIRIN 81 MG ECTAB PO SCH (08:24)
[2023-03-11] MEDS: ATORVASTATIN 40 MG TAB PO SCH (08:24)
[2023-03-11] MEDS: GABAPENTIN 300 MG CAP PO SCH ×2 (08:25→14:38)
[2023-03-11] MEDS: POTASSIUM CHLORIDE 10 MEQ TABCR PO SCH (08:25)
[2023-03-11] MEDS: METOPROLOL SUCC 50MG EXT REL TAB PO SCH (08:25)
[2023-03-11] MEDS: CALCIUM CARBONATE 1250MG TAB PO SCH (08:25)
[2023-03-11] MEDS: DOCUSATE SODIUM/SENNA 50/8.6MG TAB PO SCH (08:25)
[2023-03-11] MEDS: PANTOprazole 40 MG TAB PO SCH (08:25)
[2023-03-11] MEDS: UMECLIDINIUM BROMIDE 62.5MCG/BLISTER 7 PUFFS/INHALER INH SCH (08:25)
[2023-03-11] MEDS: CHOLECALCIFEROL 1,000 UNITS 25 MCG TAB PO SCH (08:25)
[2023-03-11] MEDS: CYANOCOBALAMIN (B-12) 500 MCG TABLET PO SCH (08:25)
[2023-03-11] MEDS: INDAPAMIDE 1.25 MG TAB PO SCH (08:25)
[2023-03-11] MEDS: POLYETHYLENE (MIRALAX) 17 GM PACK PO SCH (08:25)
--- NOTE | 2023-03-11 12:48 | Discharge Summary ---
Date of Service March 11, 2023 Admission HPI Per Admitting Provider 72-year-old female with recent right TKA [address] Thomson presented to ED today with persistent right knee pain despite Percocet, along with intermittent confusion/hallucination. Prior to discharge, patient was noted to have mild delirium attributed to anesthesia and was discharged home in stable condition. However since discharge, she was having persistent right knee pain despite Percocet 2 tabs every 6 hours. Also she had intermittent confusion, with her son noted to be related to her pain. States that when her pain is improved, her confusion is improved but when her pain is worse, her confusion g ets worse. Also she had some hallucinations this morning-she was talking about feeding horses but they do not have horses. She also mistook her son for her . Upon presenting to the ED, patient was given fentanyl and her pain was much improved and her confusion had significantly improved. During my encounter, she was awake, alert, oriented x4 and was conversing appropriately. Denies any fever or chills at home. No nausea, vomiting, abdominal pain, shortness of breath, chest pain. Has persistent right knee pain and swelling but no drainage, discharge or erythema. Has chronic constipation despite stool softeners and has to take enema couple times a week, last one was 2 days back and had a bowel movement yesterday morning. Admission Exam Per Admitting Provider General: Lying in bed, some discomfort due to pain but not in acute distress, on room air HEENT: EOMI, DENISE, MMM Chest: Clear breath sounds bilaterally, no wheezes or crackles CVS: Regular rate and rhythm, normal heart sounds, no murmur Abdomen: Soft, non tender, not distended, normal bowel sounds Neuro: Awake, alert, oriented x4, conversing well, non focal MSK: Rt knee incision clean dry intact and well approximated with edelmira, swollen, warm, mildly tender, no cellulitis or discharge noted Principal Diagnosis Toxic encephalopathy secondary to excessive pain medication use. Supratherapeutic INR Recent status post right knee replacement Chronic constipation Acute UTI Discharge Exam General: Lying in bed, not in acute distress, on room air HEENT: EOMI, DENISE, MMM Chest: Clear breath sounds bilaterally, no wheezes or crackles CVS: Regular rate and rhythm, normal heart sounds, no murmur Abdomen: Soft, non tender, not distended, normal bowel sounds Neuro: Awake, alert, oriented x4, conversing well, non focal MSK: Rt knee incision clean dry intact and well approximated with edelmira, swollen, warm, mildly tender, no cellulitis or discharge noted Discharge Data Allergies Allergy/AdvReac Type Severity Reaction Status Date / Time Iodinated Contrast Media Allergy Intermediate Hives Verified 02/27/23 09:32 Consultations 03/06/23 17:30 ED Decision to Admit Stat 03/06/23 19:01 Consult Orthopedic Surgery Stat Ordered Studies 03/06/23 14:25 CT abd pelvis wo con Stat CT head/brain wo con Stat 03/06/23 15:57 US gallbladder Stat Hospital Course (1) AMS (altered mental status): (2) Status post right knee replacement: (3) Supratherapeutic INR: (4) COPD (chronic obstructive pulmonary disease): Plan Toxic encephalopathy secondary to pain medication use Right knee effusion/recent status post right knee replacement Supratherapeutic INR: on Coumadin for history of PE x2 and paroxysmal atrial fibrillation. Home dose of Coumadin is 7.5 mg TTS and 5 mg rest of the week --> being discharged on 4 mg daily of Coumadin, with close follow-up to Coumadin clinic in 3 days upon discharge. Hemoglobin drop: Hemoglobin dropped since presentation (12.1 to 9.8), closely monitor H&H given recent knee surgery and admitting supratherapeutic INR. Patient denies any hematemesis/hematochezia/black or bloody stool/any other bleeding wound. ---> Hb has been stable lately and she has been therapeutic INR. Patient came in with intermittent confusion, has been taking a lot of pain medication at home as her knee pain was not being controlled. Admitting CT head with no acute findings. Admitting knee x-ray and follow-up knee x-ray with moderate right knee joint effusion Patient declines severe pain at her right knee today, using as needed pain medications. PT/OT, recommends home with home health. Hemoglobin has been stable, patient has been discharged to home with home health. Patient will need to closely follow-up with Coumadin clinic for dose adjustment of her warfarin. Orthopedic evaluated, appreciate recommendation. Mentation back to baseline. Continue delirium precautions. Continue pain management with preference to Tylenol. Acute UTI: Pain or burning with passing urine 03/10, Rocephin started 03/10. Symptoms resolved today. To p.o. antibiotic on discharge. Chronic constipation: records enema couple times a week at home. We will continue laxatives. Enema as needed. Paroxysmal atrial fibrillation-currently in sinus rhythm. Continue home Toprol. Continue with Coumadin [see above] DVT prophylaxis: On Coumadin DNR/DNI Patient being discharged home with home health with following instruction at the point of discharge: Follow-up with your primary care physician within a week time and likely you will need labs CBC/CMP/magnesium/phosphorus. You are being discharged on few days worth of oxycodone, take every 8 hours for severe pain as needed. You can use cold compression and fyjs-men-myhwlsd Tylenol for mild pain. If you have worsening pain, call orthopedic office immediately and have your self evaluated or come to the ED. For your elevated INR, your Coumadin dose has been reduced to 4 mg daily. Follow-up with your Coumadin clinic on 3 days upon discharge and further recommendation from their office. This is important as discussed at the bedside. Continue with Home health with physical therapy. For your acute UTI, you are being discharged on antibiotic to complete the 7-day course. For your chronic constipation, continue to take szhk-drc-nbcwnhf laxatives and stool softener with a goal of 1 bowel movement per day. Please make sure that you are able to get your medications today by calling your pharmacy before you leave the hospital so that your treatment continuity is not broken. Home Health Attestation I certify that this patient is under my care and that I, or a physicians bankruptcy assistant working with me, had a face to-face encounter that meets the home health uihn-ra-czod encounter requirements with this patient. The encounter with the patient was in whole, or in part, for the following medical condition, which is the primary reason for home health care (list medical condition): I certify that, based on my findings, the following services are medically n ecessary home health services: My clinical findings support the need for the above services because: Further, I certify that my clinical findings support that this patient is homebound (i.e. absences from home require considerable and taxing effort and are for medical reasons or anabaptism services or infrequently or of short duration when for other reasons) because: Certification for Home Health Services: Based on the above findings, I certify that this patient is confined to the home and needs intermittent fci care, physical therapy and/or speech therapy or continues to need occupational therapy. The patient is under my care, and I have initiated the establishment of the plan of care. This patient will be followed by a physician who will periodically review the plan of care. Total Time Total Time Spent Total Time Spent (In Minutes): 45 Discharge Plan Discharge Items Patient Disposition: Home - Home Health Services Reason For Visit: UNCONTROLLED KNEE PAIN, CONFUSION Discharge Diagnosis: Toxic encephalopathy secondary to excessive pain medication use. Supratherapeutic INR Recent status post right knee replacement Chronic constipation Acute UTI Activity: As commented below Activity Comment: Continue as directed by orthopedics and physical therapy. Non-emergency contact: Primary Care Provider Call non-emergency contact if: you have any medication questions, your symptoms worsen and your temperature is above 101 Follow-up/Referrals: Perfecto Sauceda, DO [Primary Care Provider] - (Dr Sauceda's office is aware of your hospital discharge, and will call you with an appointment.) Diet: Heart Healthy Addtl Attending Provider Instructions: Follow-up with your primary care physician within a week time and likely you michael l need labs CBC/CMP/magnesium/phosphorus. You are being discharged on few days worth of oxycodone, take every 8 hours for severe pain as needed. You can use cold compression and ecxa-kse-yibwloo Tyle nol for mild pain. If you have worsening pain, call orthopedic office immediately and have your self evaluated or come to the ED. For your elevated INR, your Coumadin dose has been reduced to 4 mg daily. Follow-up with your Coumadin clinic on 3 days upon discharge and further recommendation from their office. This is important as discussed at the bedside. Continue with Home health with physical therapy. For your acute UTI, you are being discharged on antibiotic to complete the 7-day course. For your chronic constipation, continue to take xsqr-bst-zuwenkf laxatives and stool softener with a goal of 1 bowel movement per day. Please make sure that you are able to get your medications today by calling your pharmacy before you leave the hospital so that your treatment continuity is not broken. Pending Studies at Discharge: Yes (UCx) Stand-Alone Forms: My [employer], Smoking Cessation Medications and DC Order Prescriptions: New warfarin 4 mg tablet 4 mg PO DAILY Qty: 30 0RF acetaminophen [Tylenol Extra Strength] 500 mg Tablet 1,000 mg PO Q8H 7 Days Qty: 42 0RF oxycodone 5 mg Tablet 5 mg PO Q6H PRN (Reason: severe pain (scale score 7-10)) 5 Days Qty: 20 0RF polyethylene glycol 3350 [Miralax] 17 gram Powder In Packet 17 g PO DAILY Qty: 30 0RF sennosides-docusate sodium [Senokot-S] 8.6-50 mg Tablet 1 tab PO BID Qty: 60 0RF cefdinir 300 mg capsule 300 mg PO BID 5 Days Qty: 10 0RF Probiotic 3 billion cell capsule 3,000 mmu cells PO DAILY 7 Days Qty: 7 0RF Rx Instructions: administer with a meal Continued calcium carbonate [Calcium 600] 600 mg calcium (1,500 mg) Tablet 600 mg PO QAM omeprazole 20 mg capsule,delayed release(DR/EC) 20 mg PO QAM albuterol sulfate [Ventolin HFA] 90 mcg/actuation Hfa Aerosol Inhaler 2 puff INHALATION Q6H PRN (Reason: Shortness Of Breath) buspirone 5 mg tablet 10 mg PO BID gabapentin 300 mg capsule 300 mg PO TID ondansetron 4 mg tablet,disintegrating 4 - 8 mg PO Q8H PRN (Reason: nausea and vomiting) Qty: 14 0RF aspirin 81 mg Tablet,Delayed Release (Dr/Ec) 81 mg PO QAM duloxetine 60 mg Capsule,Delayed Release(Dr/Ec) 60 mg PO HS atorvastatin 40 mg Tablet 40 mg PO QAM alendronate 70 mg Tablet 70 mg PO WK Rx Instructions: monday cyanocobalamin (vitamin B-12) [Vitamin B-12] 1,000 mcg Tablet 1,000 mcg PO QAM indapamide 1.25 mg tablet 1.25 mg PO QAM cholecalciferol (vitamin D3) [Vitamin D3] 50 mcg (2,000 unit) Capsule 50 mcg PO QAM Spiriva Respimat 2.5 mcg/actuation Mist 2 inh INHALATION QAM guaifenesin [Mucinex] 600 mg Tablet Extended Release 12hr 600 mg PO BID PRN (Reason: Congestion) metoprolol succinate [Toprol XL] 50 mg tablet extended release 24 hr 50 mg PO QAM hydroxyzine HCl 10 mg tablet 10 mg PO TID furosemide 40 mg tablet 40 mg PO DAILY potassium chloride 10 mEq tablet extended release 10 meq PO QAM Discontinued oxycodone-acetaminophen [Percocet] 5-325 mg tablet 1 - 2 tab PO Q6H PRN (Reason: pain) Qty: 40 0RF warfarin 5 mg tablet 5 mg PO 4XWK Rx Instructions: TAKE 5MG warfarin 5 mg tablet 7.5 mg PO 3XWK Rx Instructions: TAKE 7.5 MG Discharge Orders: Discharge Order (Routine); Ordered 03/11/23 Ordered By: Nkechi Young Admission Data Admit Date/Time: 03/07/23 15:16 Attending Provider: Nkechi Young Admit Provider: Lavell eKmp Primary Care Provider: Perfecto Sauceda Other Providers: Jerald Thomson ; Lavell Kemp ; [place] ; [facility] ; [facility]
== END 2023-03-11 15:24 | disposition home health service (06) | DRG 92 ==
LOC: ED 11:29 → 2W 11:29 → SUATTDRO 19:01 → 2W 20:31

== ENCOUNTER 2023-11-18 07:45 | Inpatient (IN) ==
[2023-11-18] MEDS: fentaNYL citrate PF 100 MCG/2 ML VIAL IV STA ×3 (08:06→12:20)
[2023-11-18 08:14] LABS: Basophils # (auto) 0.04 K/uL (0.00-0.20); Basophils % (auto) 0.5 %; Eosinophils # (auto) 0.08 K/uL (0.00-0.50); Hematocrit (blood only) 40.3 % (37.0-47.0); Hemoglobin 12.8 g/dl (12.0-16.0); Immature Granulocytes # (auto) 0.05 K/uL (0.01-0.20); Immature Granulocytes % (auto) 0.6 %; Lymphocytes # (auto) 1.35 K/uL (1.20-3.40); Lymphocytes % (auto) 16.6 %; Mean Corpuscular Hemoglobin 29.2 pg (25.0-34.0); Mean Corpuscular Hgb Conc 31.8 g/dL (32.0-36.0); Mean Corpuscular Volume 91.8 fL (80.0-100.0); Mean Platelet Volume 8.9 fL (9.4-12.4); Monocytes # (auto) 0.55 K/uL (0.11-0.59); Monocytes % (auto) 6.8 %; Neutrophils # (auto) 6.05 K/uL (1.40-6.50); Neutrophils % (auto) 74.5 %; Platelet Count 277 K/uL (130-400); RDW Standard Deviation 47.3 fL (36.4-46.3); Red Blood Count 4.39 M/uL (4.20-5.40); White Blood Count 8.12 K/ul (4.8-10.8)
[2023-11-18 08:27] LABS: Alanine Aminotransferase 11 U/L (7-52); Albumin Globulin Ratio 1.5 (0.9-2); Albumin Level 3.8 gm/dl (3.4-5.0); Alkaline Phosphatase 52 U/L (34-104); Anion Gap 2 (3-11); Aspartate Aminotransferase 17 U/L (13-39); Bilirubin,Total 0.6 mg/dl (0.2-1.0); Blood Urea Nitrogen 18 mg/dl (6-23); Calcium 8.8 mg/dl (8.6-10.3); Carbon Dioxide 29 mmol/L (21-32); Chloride 109 mmol/L (98-107); Creatine Kinase 135 U/L (26-192); Est GFR (African American) 94.9 ml/min; Est GFR (Non-African American) 81.9 ml/min; Globulin 2.6 gm/dl (2.5-4.0); Glucose 89 mg/dl (70-99(Fasting)); Potassium 4.2 mmol/L (3.5-5.1); Sodium 140 mmol/L (136-145); Total Protein 6.4 gm/dl (6.0-8.3)
[2023-11-18 08:34] LABS: Troponin I High Sensitivity 3.7 pg/ml (0-14)
[2023-11-18 08:38] LABS: Prothrombin Time 10.8 Seconds (9.0-12.0)
--- NOTE | 2023-11-18 08:40 | XRay Report ---
XR chest 1V portable CLINICAL HISTORY: fall TECHNIQUE: Single frontal radiograph of the chest was obtained. Comparison: Comparison is made to chest radiograph 03/06/2023 FINDINGS: No lines and tubes are seen. Calcified aortic knob is seen. The lungs are clear. No evidence of pleur al effusion or pneumothorax. IMPRESSION: No acute chest disease. ACT 112: Negative or not required by law. Electronically signed by: Car Castellon M.D. 11/18/2023 8:39 AM
--- NOTE | 2023-11-18 08:40 | CT Scan Report ---
CT head/brain wo con CLINICAL HISTORY: Trauma, on eliquis Technique: Contiguous axial CT images of the head were acquired from the base of the skull to the sondra pamela without intravenous contrast administration. Images were viewed in brain, subdural [facility]. Automated dose lowering techniques and/or adjustment according to patient size were utilized for this exam. Comparison: None available at the time of this dictation. Findings: The ventricles, basal cisterns, and cerebral sulci are normal. There is no acute intracranial hemorrh age or evidence of acute territorial infarction. Neither mass effect, shift of the midline structures , nor abnormal extra-axial fluid collections are shown. Imaged portions of the paranasal sinuses and mastoid air cells are clear. The orbits appear normal. There are no acute fractures of the calvaria or scalp swelling. Impression: No acute intracranial hemorrhage, no evidence of acute territorial infarction or other acute intracra nial disease process. ACT 112: Negative or not required by law. Electronically signed by: Car Castellon M.D. 11/18/2023 8:39 AM
--- NOTE | 2023-11-18 08:50 | XRay Report ---
XR hip RT min 2V CLINICAL HISTORY: fall TECHNIQUE: 2 views of the right hip and single frontal view of the pelvis were obtained. Comparison: Comparison is made to CT abdomen pelvis 03/06/2023 FINDINGS: There is an impacted subcapital fracture of the right femur. Joint spaces are well-preserved. No soft tissue abnormality is seen. IMPRESSION: Impacted subcapital fracture of the right femur. ACT 112: Negative or not required by law. Electronically signed by: Car Castellon M.D. 11/18/2023 8:47 AM
--- NOTE | 2023-11-18 08:51 | CT Scan Report ---
CT cervical spine wo con CLINICAL HISTORY: Trauma TECHNIQUE: Multidetector row helical CT of the cervical spine was performed without administration of intravenous contrast. Coronal and sagittal reformations were obtained. Automated dose lowering techn iques and/or adjustment according to patient size were utilized for this exam. Comparison: None available at the time of this dictation. FINDINGS: No acute fractures or subluxations are identified. Degenerative changes are seen in the visualized sp ine. The alignment is normal. Soft tissues are unremarkable. IMPRESSION: Degenerative changes without evidence of acute bony injury. ACT 112: Negative or not required by law. Electronically signed by: Car Castellon M.D. 11/18/2023 8:49 AM
--- NOTE | 2023-11-18 09:07 | Emergency Department Note ---
Impression & Plan Fall, Closed fracture of right hip, Anticoagulant long-term use ED Provider Note Provider: Darren Nelson MD DATE OF SERVICE: 11/18/2023 CHIEF COMPLAINT: Fall, right hip pain HISTORY OF PRESENT ILLNESS: Patient is a 73-year-old female history of COPD, CVA, pulmonary embolism maintained on Eliquis presenting here today after a fall. States her son's cat scratched her right leg last night and this morning she was up in the bathroom and lost her balance and fell the ground. Unable to walk and laid on the floor for an hour until until she was able to get to help. Pain in the right hip. Spasming. No pain in the right knee or lower leg. No injury to the other extremities. Denies significant head neck or back pain but does report that she struck her head. No loss of consciousness reported. Eliquis dose last in the evening. Denies any new numbness or tingling. Received some fentanyl for EMS. PAST MEDICAL HISTORY: As noted above MEDICATIONS: Reviewed home medication SOCIAL HISTORY: Lives at home PHYSICAL EXAM: GENERAL: alert and oriented in on stretcher appears uncomfortable Head: normocephalic and atraumatic EYES: No injection, discharge or icterus. PERRL, EOMI. NECK: Trachea midline. Supple. ENT: Mucous membranes pink and moist. LUNGS: Airway patent. No retractions. Breath sounds clear with good air entry bilaterally. HEART: Regular rate and rhythm. No chest wall tenderness ABDOMEN: Soft and non-tender, without guarding or rebound. No bilateral flank tenderness. SKIN: Acyanotic, warm, dry, without rashes EXTREMITIES: Without swelling, tenderness or deformity with pain and occasional spasming of the right hip and inability to move the right hip joint due to pain. Healed incision to the right knee without significant tenderness there. Several scratches to the right lateral proximal lower leg without erythema or crepitus. NEUROLOGICAL: No focal deficits. No aphasia. No facial droop or slurred speech. Limited moves around the right hip secondary to pain. Sensation to gross touch normal. EK bpm sinus rhythm with PACs. No PVC. No acute ST segment elevation or depression with a QTc of 422. CONTINUOUS CARDIAC MONITORING: was ordered and showed a heart rate of 60s bpm in sinus rhythm with PACs GCS 15. Patient's laboratory studies and imaging reviewed. Differential includes Fracture, dislocation, contusion, intra-abdominal, pneumothorax, intrathoracic, intracranial, neurologic, compartment syndrome, rhabdomyolysis, as well as other pathologies. IMPRESSION/MEDICAL DECISION MAKING: Patient presents after a fall. On Eliquis. Will complete trauma scans without contrast given allergy. Significant pain around the right hip and question possible fracture here. Negative right hip. No significant evidence of injury elsewise in the extremities beyond some bandages scratches to the right lateral lower leg. No significant redness here. This was done by a pet cat and I doubt rabies. Patient was on the floor for little. CK not elevated I doubt rhabdomyolysis. No clinical evidence of compartment syndrome. Benign abdomen on exam. Sounds more like a mechanical type fall. X-ray evidence of a right subcapital hip fracture. CT scans completed reports per radiology reassuring without any significant trauma beyond the right subcapital hip fracture. Blood work without anemia or leukocytosis. No significant lecture light abnormality or signs of renal dysfunction. Negative troponin and COVID testing. Doubt ACS or significant cardiac arrhythmia. Little bit oxygen with her history of COPD with the narcotics here but still having muscle spasm and pain. Given some IV Tylenol. Did reach out to orthopedics who evaluated the patient. Will admit to the hospitalist for further care. DIAGNOSIS: Fall, right hip fracture, long-term anticoagulation DISPOSITION: Hospitalist will evaluate Patient was agreeable with this plan. Past Med/Surg History Medical History A-fib Arthritis Chronic pain Emphysema lung History of pulmonary embolism Hyperlipidemia Hypertension Lupus Memory loss Migraine Poor historian TIA (transient ischemic attack) Surgical History History of arthroscopy of left shoulder History of arthroscopy of right shoulder History of bilateral cataract extraction History of sinus surgery History of tooth extraction History of total hysterectomy with bilateral salpingo-oophorectomy (BSO) S/P trigger finger release Family History Other Cancer Heart disease Hypertension No family history of adverse response to anesthesia Social History Smoking Status: Never smoker Tobacco Type: Cigarettes Cigarettes Per Day: 2 cigs/day; Second Hand Exposure: No; Do You Dip or Chew Tobacco: No; Hx Alcohol Use: Yes Hx Substance Use: No Preferred Language: Portuguese Communication Ability: Effective Visual Impairment: No Limitations [employer] Required: No Beliefs That Will Affect Care: None marital status: Current Living Situation: Family current occupational status: retired Feels Safe at Home: Yes Assistive Devices: Raised Toilet Seat, Walker and Other Allergies Allergies Allergy/AdvReac Type Severity Reaction Status Date / Time Iodinated Contrast Media Allergy Intermediate Hives Verified 11/18/23 09:18 Home Meds Home Medications Medication Instructions Recorded Confirmed albuterol sulfate 90 mcg/actuation 2 puff inhalation Q6H PRN 09/09/18 11/18/23 aerosol inhaler (Ventolin HFA) Shortness Of Breath calcium carbonate (Calcium 600) 600 mg PO QAM 12/15/18 11/18/23 atorvastatin 40 mg tablet 40 mg PO QAM 04/14/21 11/18/23 duloxetine 60 mg capsule,delayed 60 mg PO HS 04/14/21 11/18/23 release gabapentin 300 mg capsule 300 mg PO TID 01/11/22 11/18/23 aspirin 81 mg tablet,delayed 81 mg PO QAM 01/13/22 11/18/23 release alendronate 70 mg tablet 70 mg PO WK 01/13/23 11/18/23 cholecalciferol (vitamin D3) 50 50 mcg PO QAM 01/13/23 11/18/23 mcg (2,000 unit) capsule (Vitamin D3) cyanocobalamin (vitamin B-12) 1,000 mcg PO QAM 01/13/23 11/18/23 1,000 mcg tablet (Vitamin B-12) guaifenesin 600 mg tablet, 600 mg PO BID PRN Congestion 01/13/23 11/18/23 extended release 12 hr (Mucinex) hydroxyzine HCl 10 mg tablet 10 mg PO TID 01/13/23 11/18/23 metoprolol succinate 50 mg 50 mg PO QAM 01/13/23 11/18/23 tablet,extended release 24 hr (Toprol XL) tiotropium bromide 2.5 2 inh inhalation QAM 01/13/23 11/18/23 mcg/actuation mist for inhalation (Spiriva Respimat) furosemide 40 mg tablet 40 mg PO DAILY 03/06/23 11/18/23 potassium chloride 10 mEq 10 meq PO QAM 03/06/23 11/18/23 tablet,extended release albuterol sulfate 0.63 mg/3 mL 0.63 mg continuous nebulization UD 11/18/23 11/18/23 solution for nebulization apixaban 2.5 mg tablet (Eliquis) 2.5 mg PO BID 11/18/23 11/18/23 buspirone 10 mg tablet 10 mg PO BID 11/18/23 11/18/23 fluticasone furoate 200 1 inh inhalation QAM 11/18/23 11/18/23 mcg-vilanterol 25 mcg/dose inhalation powder (Breo Ellipta) omeprazole 10 mg capsule,delayed 10 mg PO QAM 11/18/23 11/18/23 release Previous Rx's Medication Instructions Recorded ondansetron 4 mg disintegrating 4 - 8 mg (1 - 2 x 4 mg) PO Q8H PRN 01/12/22 tablet nausea and vomiting #14 tabs polyethylene glycol 3350 17 gram 17 g PO DAILY #30 ea 03/11/23 oral powder packet (Miralax) sennosides 8.6 mg-docusate sodium 1 tab PO BID #60 tabs 03/11/23 50 mg tablet (Senokot-S) Results & Data (ED) Vital Signs Vital Signs - 24 hr 11/18/23 07:24 11/18/23 07:54 11/18/23 07:58 Temperature 36.8 C Temperature Source Oral Pulse Rate 70 70 Pulse Rate [Left Apical] Pulse Rate from SpO2 Sensor 71 Respiratory Rate 15 18 Respiratory Effort / Characteristics Respiratory Depth Blood Pressure 148/87 H Blood Pressure [Left Arm] Blood Pressure Mean 107 Blood Pressure Mean [Left Arm] Pulse Oximetry 94 93 89 L Oxygen Delivery Method Room Air Nasal Cannula Nasal Cannula Oxygen Flow Rate 2 2 Sepsis Recent Fever Within 48 Hours No Sepsis New/Unexplained Change in Mental Status No Sepsis Action Taken by Nursing No Action Required Pulse Oximetry Post Tiitration 95 11/18/23 07:58 11/18/23 08:00 11/18/23 08:15 Temperature Temperature Source Pulse Rate 71 71 Pulse Rate [Left Apical] Pulse Rate from SpO2 Sensor 72 Respiratory Rate 24 Respiratory Effort / Characteristics Respiratory Depth Blood Pressure 138/82 Blood Pressure [Left Arm] Blood Pressure Mean 100 Blood Pressure Mean [Left Arm] Pulse Oximetry 92 Oxygen Delivery Method Room Air Nasal Cannula Oxygen Flow Rate 2 Sepsis Recent Fever Within 48 Hours Sepsis New/Unexplained Change in Mental Status Sepsis Action Taken by Nursing Pulse Oximetry Post Tiitration 11/18/23 09:00 11/18/23 10:00 11/18/23 12:06 Temperature Temperature Source Pulse Rate 69 65 Pulse Rate [Left Apical] 67 Pulse Rate from SpO2 Sensor 69 66 Respiratory Rate 17 21 18 Respiratory Effort / Characteristics Non-Labored Respiratory Depth Normal Blood Pressure 127/72 Blood Pressure [Left Arm] 133/63 Blood Pressure Mean 90 Blood Pressure Mean [Left Arm] 86 Pulse Oximetry 98 98 97 Oxygen Delivery Method Nasal Cannula Nasal Cannula Nasal Cannula Oxygen Flow Rate 2 2 2 Sepsis Recent Fever Within 48 Hours Sepsis New/Unexplained Change in Mental Status Sepsis Action Taken by Nursing Pulse Oximetry Post Tiitration 11/18/23 12:08 11/18/23 12:30 Temperature Temperature Source Pulse Rate 63 68 Pulse Rate [Left Apical] Pulse Rate from SpO2 Sensor Respiratory Rate 15 Respiratory Effort / Characteristics Respiratory Depth Blood Pressure 127/60 Blood Pressure [Left Arm] Blood Pressure Mean 82 Blood Pressure Mean [Left Arm] Pulse Oximetry 97 Oxygen Delivery Method Nasal Cannula Oxygen Flow Rate 2 Sepsis Recent Fever Within 48 Hours Sepsis New/Unexplained Change in Mental Status Sepsis Action Taken by Nursing Pulse Oximetry Post Tiitration Laboratory Data 11/18/23 07:58 11/18/23 07:58 Lab Results 11/18/23 11/18/23 11/18/23 Range/Units 07:58 08:03 08:12 WBC 8.12 (4.8-10.8) K/ul RBC 4.39 (4.20-5.40) M/uL Hgb 12.8 (12.0-16.0) g/dl Hct 40.3 (37.0-47.0) % MCV 91.8 (80.0-100.0) fL MCH 29.2 (25.0-34.0) pg MCHC 31.8 L (32.0-36.0) g/dL RDW Std Deviation 47.3 H (36.4-46.3) fL RDW Coeff of Real 14.0 (11.5-14.5) % Plt Count 277 (130-400) K/uL MPV 8.9 L (9.4-12.4) fL Immature Gran % (Auto) 0.6 % Neut % (Auto) 74.5 % Lymph % (Auto) 16.6 % [place] % (Auto) 6.8 % Eos % (Auto) 1.0 % Baso % (Auto) 0.5 % Neut # (Auto) 6.05 (1.40-6.50) K/uL Lymph # (Auto) 1.35 (1.20-3.40) K/uL [place] # (Auto) 0.55 (0.11-0.59) K/uL Eos # (Auto) 0.08 (0.00-0.50) K/uL Baso # (Auto) 0.04 (0.00-0.20) K/uL Immature Gran # (Auto) 0.05 (0.01-0.20) K/uL PT 10.8 (9.0-12.0) Seconds INR 1.0 (0.9-1.1) Sodium 140 (136-145) mmol/L Potassium 4.2 (3.5-5.1) mmol/L Chloride 109 H (98-107) mmol/L Carbon Dioxide 29 (21-32) mmol/L Anion Gap 2 L (3-11) BUN 18 (6-23) mg/dl Creatinine 0.72 (0.6-1.2) mg/dl Est Cr Clr Drug Dosing Not Reportable Est GFR ( Amer) 94.9 ml/min Est GFR (Non-Af Amer) 81.9 ml/min BUN/Creatinine Ratio 25.0 H (10-20) Glucose 89 (70-99(Fasting)) mg/dl Calcium 8.8 (8.6-10.3) mg/dl Total Bilirubin 0.6 (0.2-1.0) mg/dl AST 17 (13-39) U/L ALT 11 (7-52) U/L Alkaline Phosphatase 52 (34-104) U/L Total Creatine Kinase 135 (26-192) U/L Troponin I High Sens 3.7 (0-14) pg/ml Total Protein 6.4 (6.0-8.3) gm/dl Albumin 3.8 (3.4-5.0) gm/dl Globulin 2.6 (2.5-4.0) gm/dl Albumin/Globulin Ratio 1.5 (0.9-2) SARS-CoV-2, RNA, NAAT NEGATIVE (NEGATIVE) Blood Type O Positive Antibody Screen NEGATIVE Administered Medications Discontinued Medications Fentanyl Citrate (Fentanyl Citrate Pf 100 Mcg/2 Ml Vial) 50 mcg IV NOW STA Stop: 11/18/23 07:59 Last Admin: 11/18/23 08:06 Dose: 50 mcg Documented By: JOSH Fentanyl Citrate (Fentanyl Citrate Pf 100 Mcg/2 Ml Vial) 25 mcg IV NOW STA Stop: 11/18/23 09:03 Last Admin: 11/18/23 09:22 Dose: 25 mcg Documented By: JOSH Fentanyl Citrate (Fentanyl Citrate Pf 100 Mcg/2 Ml Vial) 50 mcg IV NOW STA Stop: 11/18/23 12:14 Last Admin: 11/18/23 12:20 Dose: 50 mcg Documented By: YONATHAN Acetaminophen (Ofirmev) 1,000 mg in 100 mls @ 400 mls/hr IV NOW STA Stop: 11/18/23 09:16 Last Infusion: 11/18/23 11:00 Dose: Infused Documented By: Admin: 11/18/23 09:22 Dose: 400 mls/hr Documented By: JOSH Imaging Data Radiologist's Impression: Hip X-Ray 11/18/23 07:58 XR hip RT min 2V CLINICAL HISTORY: fall TECHNIQUE: 2 views of the right hip and single frontal view of the pelvis were obtained. Comparison: Comparison is made to CT abdomen pelvis 03/06/2023 FINDINGS: There is an impacted subcapital fracture of the right femur. Joint spaces are well-preserved. No soft tissue abnormality is seen. IMPRESSION: Impacted subcapital fracture of the right femur. ACT 112: Negative or not required by law. Electronically signed by: Car Castellon M.D. 11/18/2023 8:47 AM Abdomen/Pelvis CT 11/18/23 07:59 CT abd pelvis wo con CLINICAL HISTORY: Trauma, R hip pain, on eliquis TECHNIQUE: Helical axial images of the abdomen and pelvis were obtained. Automated dose lowering techniques and/or adjustment according to patient size were utilized for this exam. This exam was performed without intravenous contrast. COMPARISON: Comparison is made to CT abdomen pelvis 03/06/2023 FINDINGS: Lower chest: For findings above the diaphragm, please see CT chest performed same day. Liver: Unremarkable. No focal lesions are seen. Gallbladder and biliary tree: No calcified gallstones. Normal caliber wall. No intra- or extrahepatic biliary ductal dilation. Pancreas: Unremarkable, no focal lesions. Spleen: Unremarkable. Adrenals: Lipid rich adrenal adenomas are seen bilaterally. Kidneys and ureters: Calcifications are in the capsule of the left kidney, unchanged. Bladder: Unremarkable. Reproductive organs: Unremarkable. Bowel: The appendix is normal. Lymph nodes Retroperitoneal: Unremarkable. Pelvic: Unremarkable. Mesenteric: Unremarkable. Peritoneum: Normal. Vessels: Atherosclerotic calcifications are seen. Abdominal wall: A fat-containing umbilical hernia is seen. Bones: There is an impacted subcapital fracture of the right femoral neck. No pelvic ring fractures are seen. IMPRESSION: 1. Impacted subcapital fracture of the right femoral neck. 2. Redemonstration of cortical calcification of the left kidney. ACT 112: Negative or not required by law. Electronically signed by: Car Castellon M.D. 11/18/2023 9:[address] 11/18/23 07:59 CT cervical spine wo con CLINICAL HISTORY: Trauma TECHNIQUE: Multidetector row helical CT of the cervical spine was performed without administration of intravenous contrast. Coronal and sagittal reformations were obtained. Automated dose lowering techniques and/or adjustment according to patient size were utilized for this exam. Comparison: None available at the time of this dictation. FINDINGS: No acute fractures or subluxations are identified. Degenerative changes are seen in the visualized spine. The alignment is normal. Soft tissues are unremarkable. IMPRESSION: Degenerative changes without evidence of acute bony injury. ACT 112: Negative or not required by law. Electronically signed by: Car Castellon M.D. 11/18/2023 8:[address] 11/18/23 07:59 CT chest diagnostic wo con CLINICAL HISTORY: Trauma TECHNIQUE: Multidetector row helical CT of the chest was performed. Coronal and sagittal reformations were obtained. Automated dose lowering techniques and/or adjustment according to patient size were utilized for this exam. Comparison: Comparison is made to CT chest 09/10/2018 FINDINGS: Lungs and pleura: Diffuse centrilobular and paraseptal emphysema is seen most prominent in the upper lobes. Dependent atelectasis versus scarring is seen. Heart and pericardium: Heart size is normal. No pericardial effusion. Vessels: Moderate atherosclerotic changes in the aorta and coronary arteries. Mediastinum and aries: Unremarkable. Chest wall and lower neck: Unremarkable. Abdomen: For findings below the diaphragm, please refer to CT of the abdomen dated the same. Bones: Degenerative changes in the thoracic spine. IMPRESSION: Emphysema and atelectasis versus scarring. No acute abnormalities. ACT 112: Negative or not required by law. Electronically signed by: Car Castellon M.D. 11/18/2023 9:07 AM Chest X-Ray 11/18/23 07:59 XR chest 1V portable CLINICAL HISTORY: fall TECHNIQUE: Single frontal radiograph of the chest was obtained. Comparison: Comparison is made to chest radiograph 03/06/2023 FINDINGS: No lines and tubes are seen. Calcified aortic knob is seen. The lungs are clear. No evidence of pleural effusion or pneumothorax. IMPRESSION: No acute chest disease. ACT 112: Negative or not required by law. Electronically signed by: Car Castellon M.D. 11/18/2023 8:[address] 11/18/23 07:59 CT head/brain wo con CLINICAL HISTORY: Trauma, on eliquis Technique: Contiguous axial CT images of the head were acquired from the base of the skull to the vertex without intravenous contrast administration. Images were viewed in brain, subdural and bone windows. Automated dose lowering techniques and/or adjustment according to patient size were utilized for this exam. Comparison: None available at the time of this dictation. Findings: The ventricles, basal cisterns, and cerebral sulci are normal. There is no acute intracranial hemorrhage or evidence of acute territorial infarction. Neither mass effect, shift of the midline structures, nor abnormal extra-axial fluid collections are shown. Imaged portions of the paranasal sinuses and mastoid air cells are clear. The orbits appear normal. There are no acute fractures of the calvaria or scalp swelling. Impression: No acute intracranial hemorrhage, no evidence of acute territorial infarction or other acute intracranial disease process. ACT 112: Negative or not required by law. Electronically signed by: Car Castellon M.D. 11/18/2023 8:39 AM Discharge Plan Visit Data Chief Complaint: Fall ED Provider: Darren Nelson Discharge Problem: Fall, Closed fracture of right hip, Anticoagulant long-term use Patient Disposition: Being Evaluated by Hospitalist Condition: Fair Forms Stand Alone Forms: [employer] Prescriptions Prescriptions: No Action calcium carbonate [Calcium 600] 600 mg calcium (1,500 mg) Tablet 600 mg PO QAM albuterol sulfate [Ventolin HFA] 90 mcg/actuation Hfa Aerosol Inhaler 2 puff INHALATION Q6H PRN (Reason: Shortness Of Breath) gabapentin 300 mg capsule 300 mg PO TID ondansetron 4 mg tablet,disintegrating 4 - 8 mg PO Q8H PRN (Reason: nausea and vomiting) Qty: 14 0RF aspirin 81 mg Tablet,Delayed Release (Dr/Ec) 81 mg PO QAM duloxetine 60 mg Capsule,Delayed Release(Dr/Ec) 60 mg PO HS atorvastatin 40 mg Tablet 40 mg PO QAM alendronate 70 mg Tablet 70 mg PO WK Rx Instructions: monday cyanocobalamin (vitamin B-12) [Vitamin B-12] 1,000 mcg Tablet 1,000 mcg PO QAM cholecalciferol (vitamin D3) [Vitamin D3] 50 mcg (2,000 unit) Capsule 50 mcg PO QAM Spiriva Respimat 2.5 mcg/actuation Mist 2 inh INHALATION QAM guaifenesin [Mucinex] 600 mg Tablet Extended Release 12hr 600 mg PO BID PRN (Reason: Congestion) metoprolol succinate [Toprol XL] 50 mg tablet extended release 24 hr 50 mg PO QAM hydroxyzine HCl 10 mg tablet 10 mg PO TID furosemide 40 mg tablet 40 mg PO DAILY potassium chloride 10 mEq tablet extended release 10 meq PO QAM polyethylene glycol 3350 [Miralax] 17 gram Powder In Packet 17 g PO DAILY Qty: 30 0RF sennosides-docusate sodium [Senokot-S] 8.6-50 mg Tablet 1 tab PO BID Qty: 60 0RF albuterol sulfate 0.63 mg/3 mL solution for nebulization 0.63 mg continuous nebulization UD Rx Instructions: 0.63mg twice daily, may increase to three times daily IF needed omeprazole 10 mg capsule,delayed release(DR/EC) 10 mg PO QAM buspirone 10 mg tablet 10 mg PO BID Eliquis 2.5 mg tablet 2.5 mg PO BID fluticasone furoate-vilanterol [Breo Ellipta] 200-25 mcg/dose blister with device 1 inh INHALATION QAM Referrals Referrals: Perfecto Sauceda DO [Primary Care Provider] - Discharge Problem: Fall Qualifiers: Encounter type: initial encounter Qualified Code(s): W19.XXXA - Unspecified fall, initial encounter Closed fracture of right hip Qualifiers: Encounter type: initial encounter Qualified Code(s): S72.001A - Fracture of unspecified part of neck of right femur, initial encounter for closed fracture
--- NOTE | 2023-11-18 09:10 | CT Scan Report ---
CT chest diagnostic wo con CLINICAL HISTORY: Trauma TECHNIQUE: Multidetector row helical CT of the chest was performed. Coronal and sagittal reformations were obtained. Automated dose lowering techniques and/or adjustment according to patient size were u tilized for this exam. Comparison: Comparison is made to CT chest 09/10/2018 FINDINGS: Lungs and pleura: Diffuse centrilobular and paraseptal emphysema is seen most prominent in the upper lobes. Dependent atelectasis versus scarring is seen. Heart and pericardium: Heart size is normal. No pericardial effusion. Vessels: Moderate atherosclerotic changes in the aorta and coronary arteries. Mediastinum and aries: Unremarkable. Chest wall and lower neck: Unremarkable. Abdomen: For findings below the diaphragm, please refer to CT of the abdomen dated the same. Bones: Degenerative changes in the thoracic spine. IMPRESSION: Emphysema and atelectasis versus scarring. No acute abnormalities. ACT 112: Negative or not required by law. Electronically signed by: Car Castellon M.D. 11/18/2023 9:07 AM
--- NOTE | 2023-11-18 09:21 | CT Scan Report ---
CT abd pelvis wo con CLINICAL HISTORY: Trauma, R hip pain, on eliquis TECHNIQUE: Helical axial images of the abdomen and pelvis were obtained. Automated dose lowering tech niques and/or adjustment according to patient size were utilized for this exam. This exam was perfor med without intravenous contrast. COMPARISON: Comparison is made to CT abdomen pelvis 03/06/2023 FINDINGS: Lower chest: For findings above the diaphragm, please see CT chest performed same day. Liver: Unremarkable. No focal lesions are seen. Gallbladder and biliary tree: No calcified gallstones. Normal caliber wall. No intra- or extrahepatic biliary ductal dilation. Pancreas: Unremarkable, no focal lesions. Spleen: Unremarkable. Adrenals: Lipid rich adrenal adenomas are seen bilaterally. Kidneys and ureters: Calcifications are in the capsule of the left kidney, unchanged. Bladder: Unremarkable. Reproductive organs: Unremarkable. Bowel: The appendix is normal. Lymph nodes Retroperitoneal: Unremarkable. Pelvic: Unremarkable. Mesenteric: Unremarkable. Peritoneum: Normal. Vessels: Atherosclerotic calcifications are seen. Abdominal wall: A fat-containing umbilical hernia is seen. Bones: There is an impacted subcapital fracture of the right femoral neck. No pelvic ring fractures a re seen. IMPRESSION: 1. Impacted subcapital fracture of the right femoral neck. 2. Redemonstration of cortical calcification of the left kidney. ACT 112: Negative or not required by law. Electronically signed by: Car Castellon M.D. 11/18/2023 9:18 AM
[2023-11-18] MEDS: ACETAMINOPHEN 1,000 MG/100 ML VIAL IV STA (09:22)
--- OUTSIDE RECORDS SUMMARY | 2023-11-18 09:39 | External Medical Summary | Summary of Care ---
Author Name Unknown Organization [facility] Address [address] [facility] [place] [address] Phone [phone] Care Team Providers Care Case Packer And Sealer Name Role Phone Perfecto Sauceda DO Primary Care Provider [phone] Reason for Visit * Reason Comments NEW PATIENT * Evaluate & Treat - Unlimited Visits (Within 30 days (routine)) - Authorized Specialty Diagnoses / Procedures Referred By Gautam baker Referred To Contact Otolaryngology Diagnoses Isaias Carmichael MD [address] [place] [id number] Referral ID Status Reason Start Date Expiration Date Visits Requested Visits Authorized [id number] Authorized Specialty Services Required 10/26/[phone] Encounter Details Date Type Department Care Team (Late st Contact Info) Description 11/10/2023 8:00 AM EDT Office Visit Otolaryngology [facility] [address] [place] [id number] Amilcar Dawson DO [address] [place] [id number] Mucous cyst of tonsil* Allergies Active Allergy Reactions Criticality Noted Date Comments Ivp Dye Itching,Rash 04/07/2004 Hot flash. documented as of this encounter (statuses as of 11/10/2023) Medications Medication Sig Dispensed Refills Start Date End Date Status Cholecalciferol (VITAMIN D) 1999 UNITS Tablet Take 2,000 Units by mouth daily. 0 Active albuterol (VENTOLIN HFA) 108 (90 BASE) MCG/ACT inhaler Inhale 2 Puffs by mouth every 6 hours as needed (COPD). 18 g 3 04/23/2018 Active Calcium 600 MG Tablet Take 1 Tablet by mouth in the morning. 30 Tab 0 10/12/2018 Active Aspirin 81 MG Tablet Take 1 Tablet by mouth in the morning. 0 Active Vitamin B12 100 MCG Oral Tablet Take by mouth. 0 Active Magnesium Oxide (Antacid) 400 MG Oral TabletIndications:Mi graine without aura and without status migrainosus, not intractable Take 400 mg by mouth every evening. 100 Tablet 1 01/11/2023 Active Additional Information Patient taking differently:400 mg OralDaily(AM), Reported on 05/15/2023 Riboflavin 400 MG Oral TabletIndications:Mi graine without aura and without status migrainosus, not intractable Take 1 Tablet by mouth in the morning. 100 Tablet 1 01/11/2023 Active busPIRone HCl 10 MG Oral Tablet (Buspar)Indications: Anxiety state Take 1 Tablet by mouth in the morning and 1 Tablet before bedtime. 200 Tablet 5 05/15/2023 Active Furosemide 40 MG Oral Tablet (Lasix)Indications:B ilateral leg edema Take 1 Tablet by mouth in the morning. 100 Tablet 3 05/15/2023 Active Potassium Chloride ER 10 MEQ Oral Tablet Extended ReleaseIndications:B ilateral leg edema Take 1 Tablet by mouth in the morning. 100 Tablet 3 05/15/2023 Active DULoxetine HCl 60 MG Oral Capsule Delayed Release Particles (Cymbalta) TAKE ONE CAPSULE BY MOUTH EVERY DAY. DO NOT CUT, CRUSH OR CHEW 90 Capsule 5 05/24/2023 4 Active Atorvastatin Calcium 40 MG Oral Tablet (Lipitor)Indications :Hyperlipidemia, unspecified hyperlipidemia type TAKE 1 TABLET BY MOUTH DAILY 90 Tablet 3 05/24/2023 4 Active Metoprolol Succinate ER 50 MG Oral Tablet Extended Release 24 Hour (toPROL XL)Indications:Essen tial hypertension with goal blood pressure less than 140/90 TAKE ONE TABLET BY MOUTH EVERY DAY IN THE MORNING 100 Tablet 3 06/09/2023 4 Active Apixaban 2.5 MG Oral Tablet (Eliquis) Take 1 Tablet by mouth in the morning and 1 Tablet before bedtime. 200 Tablet 3 06/16/2023 Active hydrOXYzine HCl 25 MG Oral TabletIndications:An xiety state TAKE ONE TABLET BY MOUTH THREE TIMES A DAY NEEDED FOR ANXIETY 300 Tablet 2 07/29/2023 4 Active guaiFENesin ER 600 MG Oral Tablet Extended Release 12 Hour (Mucinex)Indications :COPD, group D, by GOLD 2017 classification ([facility]) Take 1 Tablet by mouth 2 times a day as needed for Congestion. Take with plenty of water. Do not cut, crush or chew 60 Tablet 3 09/06/2023 Active Full Kit Nebulizer Set Use with Nebulizer Medication every 4 hours as directed. Dx Code: J44.9 1 Each 3 09/18/2023 Active Albuterol Sulfate 0.63 MG/3ML Inhalation Nebulization Solution (Accuneb) Inhale 1 Vial via nebulizer every 6 hours as needed for Wheezing or Shortness of Breath. 1080 mL 3 10/04/2023 Active Fluticasone Furoate-Vilanterol 200-25 MCG/ACT Inhalation Aerosol Powder Breath Activated (BREO ellipta) Inhale 1 Puff by mouth in the morning. 180 Blister Dosing Unit 3 10/04/2023 Active Spiriva Respimat 1.25 MCG/ACT Inhalation Aerosol Solution (Tiotropium [place] Monohydrate)Indicati ons:COPD, group A, by GOLD 2017 classification ([facility]) INHALE 2 PUFFS BY MOUTH IN THE MORNING 12 g 3 10/02/2023 5 Active Omeprazole 10 MG Oral Capsule Delayed Release (Prilosec) TAKE ONE CAPSULE BY MOUTH EVERY DAY 30 TO 60 MIN BEFORE BREAKFAST 100 Capsule 3 10/09/2023 Active Ferrous Sulfate 325 (65 Fe) MG Oral Tablet (Feosol) Take 1 Tablet by mouth daily with breakfast. 0 10/12/2023 Active Fluconazole 100 MG Oral Tablet (Diflucan)Indication s:Thrush 2 for 1 day, then 1 tablet for 7 days. 8 Tablet 0 10/30/2023 Active Alendronate Sodium 70 MG Oral Tablet (Fosamax)Indications :Age-related osteoporosis without current pathological fracture TAKE 1 TABLET BY MOUTH ONCE A WEEK WITH 8 OZ WATER, 30 MINUTES BEFORE FIRST MEAL OF THE DAY. 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 COPD, group D, by GOLD 2017 classification 08/21 Overview: Per COPD GOLD Classification Status post total right knee replacement 023 Hypertensive left ventricula r hypertrophy, without heart failure 02/22/2023 History of pulmonary embolism 01/11/2023 History of CVA (cerebrovascular accident) 2022 Migraine without aura and wi thout status migrainosus, not intractable 01/11/2023 DNR no code (do not resuscitate) 01/08/2023 Hypokalemia 01/07/2023 Chronic anticoagulation 01/07/2023 Primary osteoarthritis of right knee 12/12/2022 B12 deficiency 06/27/2022 Paroxysmal atrial fibrillation 01/27/2022 Family history of colon cancer 01/27/2022 Essential hypertension with goal blood pressure less than 140/90 06/02/2021 Moderate episode of recurrent major depressive d isorder 02/17/2021 Age-related osteoporosis wit hout current pathological fracture 02/17/2021 Gastroesophageal reflux disease without esophagi tis 01/18/2021 Pure hypercholesterolemia 08/17/2020 Memory changes 01/17/2019 Lupus anticoagulant positive 10/10/2018 Cervicalgia 02/11/2009 Tobacco use disorder 09/24/2008 Organic sleep disorder 09/24/2008 Anxiety state 09/24/2008 Cervical spondylosis 09/23/2008 Brachial neuritis 09/23/2008 Displacement of cervical int ervertebral disc without myelopathy 06/16/2008 Generalized osteoarthritis of multiple sites LOC PRIM OSTEOART-SHLDER 06/29/2004 documented as of this encounter (statuses as of 11/10/2023) Resolved Problems Problem Noted Date Diagnosed Date Resolved Date COPD exacerbation 09/06/2023 10/04/2023 COPD, group B, by GOLD 2017 classification 04/24/2023 08/24/2023 Overview: Per COPD GOLD Classification UTI (urinary tract infection) 01/07/2023 02/15/2023 Pulmonary embolism on right 01/07/2023 01/11/2023 New onset a-fib 01/07/2023 01/11/2023 Acute CVA (cerebrovascular accident) 01/07/2023 01/11/2023 Food insecurity 08/22/2022 09/28/2022 Overview: Per [facility] Protocol Constipation 01/27/2022 05/10/2023 Supraventricular tachycardia 06/02/2021 01/27/2022 Stage 3 chronic kidney disease 06/02/2021 01/27/2022 COPD, group A, by GOLD 2017 classification 10/21/2019 04/27/2023 Overview: Per COPD GOLD Classification TIA (transient ischemic attack) 01/17/2019 08/17/2020 Headache, unspecified headache type 08/16/2018 12/19/2018 COPD, mild 10/03/2016 10/24/2019 Overview: Per COPD GOLD Classification Acute URI 11/11/2009 10/03/2016 Adjustment disorder with depressed mood 09/24/2008 10/03/2016 Polyneuropathy in other dise ases classified elsewhere 09/24/2008 12/19/2018 Migraine 04/09/2007 08/17/2020 ADVANCE DIRECTIVE INFORMATION 01/24/2005 10/03/2016 Overview: No, Advance Directive brochure offered , patient declined. documented as of this encounter (statuses as of 11/10/2023) Immunizations Name Administration Dates Next Due COVID-19 mRNA, LNP-s, No Pre serve, 2-Dose Series (Pointstic) 11/12/2020,10/22/2020 COVID-19, LNP-s, No Preserve , Cedric-sucrose, Ages 12+ (Pfizer) 07/23/2021 COVID-19, MRNA-LNP, 23-24, P F, 30 MCG/0.3 mL, 12 YRS AND ABOVE, IM ([facility]) 10/04/2023 Covid-19, Mrna, Lnp-s, Pf, B ivalent, 30 Mcg, IM, 12 yrs and above (Pfizer) 12/12/2022 Pneumococcal Conjugate Vacci ne, 20-valent ([id number]) 01/27/2022 Pneumococcal Polysaccharide PPV23 (Pneumovax) 01/18/2021,07/13/2015 RSV Vac., Bivalent, Perfusio n F, Pf,0.5 Ml (Abrysvo) 10/30/2023 Seasonal Influenza, PF, 6 M & above, IM , (FluLaval or Fluzone) 05/11/2020,08/16/2018 Seasonal Influenza, Quadriva lent Hd (Fluzone Hd) 04/24/2023,05/02/2022,05/05/2021 Seasonal Influenza, Split, I IV3, With Preserve, Inj 06/17/2016,07/13/2015 TDAP (age 10 and older)(Boostrix) 02/16/2015,02/2008 TDAP (age 11 and older)(Adacel) 05/20/2008 Zoster Vaccine Recombinant (Shingrix) 06/02/2021 ,01/18/2021 documented as of this encounter Social History Tobacco Use Types Packs/Day Years Used Date Smoking Tobacco: Every Day Cigarettes 0.5 60 Passive Smoke Exposure: Past Smokeless Tobacco: Never Comments:09/15/2023 2 packs pe r week Alcohol Use Standard Drinks/Week Comments No 0 (1 standard drink = 0.6 oz pur e alcohol) PHQ-2 Answer Date Recorded PHQ Adult Total Score 0 09/06/2023 Hunger Vital Sign Answer Date Recorded Within the past 12 months, y ou worried that your food would run out before you got the money to buy more. Never true 09/06/19 24 Within the past 12 months, t he food you bought just didn't last and you didn't have money to get more. Never true 09/06/2023 Sex and Gender Information Value Date Recorded Sex Assigned at Female 12/19/2018 1:39 PM EDT Gender Identity Female 12/19/2018 1:39 PM EDT Sexual Orientation Straight 12/19/2018 1: 39 PM EDT Job Start Date Occupation Industry Not on file Not on file Not on file documented as of this encounter Last Filed Vital Signs Vital Sign Reading Time Taken Comments Blood Pressure - - Pulse - - Temperature 36.3 C (97.4 F) 11/10/2023 7:44 AM ED T Respiratory Rate - - Oxygen Saturation - - Inhaled Oxygen Concentration - - Weight 76.7 kg (169 lb 1.6 oz) 11/10/2023 7:44 A M EDT Height 160 cm (5' 2.99") 11/10/2023 7:44 AM EDT Body Mass Index 29.96 11/10/2023 7:44 AM EDT documented in this encounter Functional Status Functional Status Response Date of Assess ment Are you deaf or do you have serious difficulty hearing? No 01/07/2023 Are you blind or do you have serious difficulty seeing, even when wearing glasses? No 01/07/2023 Do you have serious difficul ty walking or climbing stairs? (5 years old or older) Yes 01/07/2023 Do you have difficulty dress ing or bathing? (5 years old or older) Yes-"it takes me a little longer than it used to" 01/07/2023 Because of a physical, menta l, or emotional condition, do you have difficulty doing errands alone such as visiting a doctor s office or shopping? (15 years old or older) Yes-pt has a hard time remembering things, states she puts notes places to remember 01/07/2023 Cognitive Status Response Date of Assessm ent Because of a physical, menta l, or emotional condition, do you have serious difficulty concentrating, remembering, or making decisions? (5 years old or older) Yes-from past mini stroke per pt 01/07/2023 documented as of this encounter Progress Notes * Amilcar Dawson DO - 11/10/2023 8:17 AM EDT 11/10/2023 HISTORY OF PRESENT ILLNESS This 73 year old female is seen at the request of Perfecto Sauceda DO for the initial evaluation of A nodule in the throat that was seen on an EGD. I reviewed the EGD pictures in her chart which revealed a white appearing lesion in the hypopharynx. Patient does smoke a pack a cigarettes a week. She denies any hemoptysis or chronic sore throat. No neck masses.. No change to her voice. Problem List Patient Active Problem List Diagnosis Code LOC PRIM OSTEOART-SHLDER M19.019 Generalized osteoarthritis of multiple sites M15.9 Displacement of cervical intervertebral disc without myelopathy M50.20 Cervical spondylosis M47.812 Brachial neuritis M54.12 Tobacco use disorder F17.200 Organic sleep disorder G47.9 Anxiety state F41.1 Cervicalgia M54.2 Lupus anticoagulant positive R76.0 Memory changes R41.3 Pure hypercholesterolemia E78.00 Gastroesophageal reflux disease without esophagitis K21.9 Moderate episode of recurrent major depressive disorder (HCC) F33.1 Age-related osteoporosis without current pathological fracture M81.0 Essential hypertension with goal blood pressure less than 140/90 I10 Paroxysmal atrial fibrillation (HCC) I48.0 Family history of colon cancer Z80.0 B12 deficiency E53.8 Primary osteoarthritis of right knee M17.11 Hypokalemia E87.6 Chronic anticoagulation Z79.01 DNR no code (do not resuscitate) Z66 History of pulmonary embolism Z86.711 History of CVA (cerebrovascular accident) Z86.73 Migraine without aura and without status migrainosus, not intractable G43.009 Hypertensive left ventricular hypertrophy, without heart failure I11.9 Status post total right knee replacement Z96.651 COPD, group D, by GOLD 2017 classification ([facility]) J44.9 Burning mouth syndrome K14.6 Past Medical History: Diagnosis Date Anxiety state 09/24/2008 COPD, group A, by GOLD 2017 classification ([facility]) 10/21/2019 Per COPD GOLD Classification Displacement of cervical intervertebral disc without myelopathy 06/16/2008 Essential hypertension with goal blood pressure less than 140/90 06/02/2021 Gastroesophageal reflux disease without esophagitis 01/18/2021 Generalized osteoarthritis of multiple sites 04/09/2007 History of CVA (cerebrovascular accident) 01/11/2023 History of pulmonary embolism 01/11/2023 Lupus anticoagulant positive 10/10/2018 Migraine without aura and without status migrainosus, not intractable 01/11/2023 Moderate episode of recurrent major depressive disorder (HCC) 02/17/2021 Paroxysmal atrial fibrillation (HCC) Primary localized osteoarthrosis of shoulder region 06/29/2004 Primary osteoarthritis of right knee 12/12/2022 Pure hypercholesterolemia 08/17/2020 Past Surgical History: Procedure Laterality Date ARTHROPLASTY KNEE TOTAL Right 02/27/2023 COLONOSCOPY, DIAGNOSTIC (RECTUM) 06/01/2011 Ext hemorrhoids, normal COLONOSCOPY, DIAGNOSTIC (RECTUM) 11/22/2016 normal, repeat 5 yrs/COLONOSCOPY FLEXIBLE PROXIMAL DIAGNOSTIC performed by Tashia iTm DO at [facility] COLONOSCOPY, DIAGNOSTIC (RECTUM) 12/29/2022 poor prep/biopsies normal/recall 1 year/COLONOSCOPY FLEXIBLE PROXIMAL DIAGNOSTIC performed by Jana Tim DO at [facility] EGD, FLEXIBLE, DIAGNOSTIC 11/22/2016 mild stomach irritation/ESOPHAGOGASTRODUODENOSCOPY (EGD), FLEXIBLE, TRANSORAL, DIAGNOSTIC performedby Tashia Tim DO at [facility] EGD, FLEXIBLE, DIAGNOSTIC 10/26/2023 ESOPHAGOGASTRODUODENOSCOPY (EGD), FLEXIBLE, TRANSORAL, DIAGNOSTIC performed by Sukhi Flood MD at [facility] MISCELLANEOUS ORDER ([facility] ONLY) Bilateral 05/30/2018 Reinheimer- blepharoplasty eyelids PARTIAL HYSTERECTOMY 1976 took ovaries REMOVE CATARACT, INSERT LENS PROSTH Bilateral Dr. Wynne SHOULDER ARTHROSCOPY/SURGERY Bilateral 2014 L, [address] Thomson SINUS SURGERY PROCEDURE NEC 1993 STRESS ECHO (EXERCISE) 11/2004 normal Medications Current Outpatient Medications Medication Sig Dispense Refill Cholecalciferol (VITAMIN D) 2000 UNITS Tablet Take 2,000 Units by mouth daily. albuterol (VENTOLIN HFA) 108 (90 BASE) MCG/ACT inhaler Inhale 2 Puffs by mouth every 6 hours as needed (COPD). 18 g 3 Calcium 600 MG Tablet Take 1 Tablet by mouth in the morning. 30 Tab 0 Aspirin 81 MG Tablet Take 1 Tablet by mouth in the morning. Vitamin B12 100 MCG Oral Tablet Take by mouth. Magnesium Oxide (Antacid) 400 MG Oral Tablet Take 400 mg by mouth every evening. (Patient taking differently: Take 400 mg by mouth in the morning.) 100 Tablet 1 Riboflavin 400 MG Oral Tablet Take 1 Tablet by mouth in the morning. 100 Tablet 1 busPIRone HCl 10 MG Oral Tablet (Buspar) Take 1 Tablet by mouth in the morning and 1 Tablet before bedtime. 200 Tablet 5 Furosemide 40 MG Oral Tablet (Lasix) Take 1 Tablet by mouth in the morning. 100 Tablet 3 Potassium Chloride ER 10 MEQ Oral Tablet Extended Release Take 1 Tablet by mouth in the morning. 100 Tablet 3 DULoxetine HCl 60 MG Oral Capsule Delayed Release Particles (Cymbalta) TAKE ONE CAPSULE BY MOUTH EVERY DAY. DO NOT CUT, CRUSH OR CHEW 90 Capsule 5 Atorvastatin Calcium 40 MG Oral Tablet (Lipitor) TAKE 1 TABLET BY MOUTH DAILY 90 Tablet 3 Metoprolol Succinate ER 50 MG Oral Tablet Extended Release 24 Hour (toPROL XL) TAKE ONE TABLET BY MOUTH EVERY DAY IN THE MORNING 100 Tablet 3 Apixaban 2.5 MG Oral Tablet (Eliquis) Take 1 Tablet by mouth in the morning and 1 Tablet before bedtime. 200 Tablet 3 hydrOXYzine HCl 25 MG Oral Tablet TAKE ONE TABLET BY MOUTH THREE TIMES A DAY NEEDED FOR ANXIETY 300 Tablet 2 guaiFENesin ER 600 MG Oral Tablet Extended Release 12 Hour (Mucinex) Take 1 Tablet by mouth 2 timesa day as needed for Congestion. Take with plenty of water. Do not cut, crush or chew 60 Tablet 3 Full Kit Nebulizer Set Use with Nebulizer Medication every 4 hours as directed. Dx Code: J44.9 1 Each 3 Albuterol Sulfate 0.63 MG/3ML Inhalation Nebulization Solution (Accuneb) Inhale 1 Vial via nebulizer every 6 hours as needed for Wheezing or Shortness of Breath. 1080 mL 3 Fluticasone Furoate-Vilanterol 200-25 MCG/ACT Inhalation Aerosol Powder Breath Activated (BREO ellipta) Inhale 1 Puff by mouth in the morning. 180 Blister Dosing Unit 3 Spiriva Respimat 1.25 MCG/ACT Inhalation Aerosol Solution (Tiotropium [place] Monohydrate) INHALE 2PUFFS BY MOUTH IN THE MORNING 12 g 3 Omeprazole 10 MG Oral Capsule Delayed Release (Prilosec) TAKE ONE CAPSULE BY MOUTH EVERY DAY 30 TO 60 MIN BEFORE BREAKFAST 100 Capsule 3 Ferrous Sulfate 325 (65 Fe) MG Oral Tablet (Feosol) Take 1 Tablet by mouth daily with breakfast. Fluconazole 100 MG Oral Tablet (Diflucan) 2 for 1 day, then 1 tablet for 7 days. 8 Tablet 0 Alendronate Sodium 70 MG Oral Tablet (Fosamax) TAKE 1 TABLET BY MOUTH ONCE A WEEK WITH 8 OZ WATER, 30 MINUTES BEFORE FIRST MEAL OF THE DAY. REMAIN UPRIGHT FOR 30 MIN AFTER TAKING TABLET 15 Tablet 3 Gabapentin 300 MG Oral Capsule (Neurontin) TAKE ONE CAPSULE BY MOUTH EVERY MORNING, AT NOON, AND BEFORE BEDTIME 300 Capsule 3 No current facility-administered medications for this visit. Allergies Review of patient's allergies indicates: Allergen Reactions Ivp Dye Itching and Rash Hot flash. Family History Family History Problem Relation Age of Onset Colon cancer Mother Other (tuberculosis) Mother Heart disease Mother Lung Disorder Father emphysema Neurological Disorder Father alzheimer's Other (Stroke ruptured aneurysm) Sister Other (Other pulm embolus) Sister Rheum arthritis Sister Other (Cancer metatsatic to liver) Sister Rheum arthritis Sister Cancer Sister ovarian Other (Other) Sister lung disorder on oxygen Cancer Brother esophageal Rheum arthritis Brother Lung Disorder Brother emphysema Arthritis Uncle (Unspecified) RA Eye Problems None Denies family hx of eye disease Glaucoma None Denies family hx Social History Social History Tobacco Use Smoking status: Every Day Current packs/day: 0.50 Average packs/day: 0.5 packs/day for 60.0 years (30.0 ttl pk-yrs) Types: Cigarettes Passive exposure: Past Smokeless tobacco: Never Tobacco comments: 09/15/2023 2 packs per week Substance Use Topics Alcohol use: No Vaping/E-Cigarette Use Vaping/E-Cigarette Use Never User Passive Exposure No Counseling Given? No Vaping/E-Cigarette Substances Nicotine No Other No Flavoring No THC No Cannabidiol (CBD) No Vaping/E-Cigarette Devices Disposable No Pre-filled or Refillable Cartridge No Refillable Tank No Pre-filled Pod No Review of Systems Negative for constitutional, eyes, cardiac, pulmonary, hepatic, renal, digestive, hematologic, epileptic, syncopal, musculo-skeletal, mental health, integumentary, hypertensive, lipid, arthritic, diabetic, thyroid, or neurologic disorders (except as listed in the PMH and Problem List). Physical Examination: Temp 36.3 C (97.4 F) (Tympanic) | Ht 1.6 m (5' 2.99") | Wt 76.7 kg (169 lb 1.6 oz) | BMI 29.96 kg/m | BSA 1.85 m PHYSICAL EXAM General: This is a healthy appearing female who appears her stated age. The patient is alert and appropriately verbally conversant without hoarseness. Face: The face was inspected and no cutaneous masses or lesions were visualized. There was no erythema or edema noted. Facial movement was symmetric without weakness. No skin lesions were detected. There was no sinus tenderness elicited. The parotid and submandibular glands were normal to palpation. Eyes: Extra-ocular muscle function was intact. No nystagmus was observed. Pupils were equal. Cranial Nerves: Cranial nerves II, III, IV, and were noted to be intact via extra-ocular muscle movement testing. Cranial nerve VII noted to be intact and symmetric by facial movement. Nose: Examination of the nose revealed no masses, polyps, mucopus, or other lesion. The nasal septum was non-obstructing. The turbinates were without abnormality. Oral Cavity: Examination of the oral cavity revealed no mass lesions nor infection. The palate was noted to be intact without evidence of clefting. The tongue exhibited normal mobility. Mucosa was moist without lesion. The lips were free of lesion. Gums were free of inflammation. Dentition: Unremarkable Oropharynx: The oral pharynx was free of mass lesion or mucosal abnormality. The palate was noted to be without lesion. The uvula was normal appearing. The tonsils were unremarkable. Ears: Examination of the ears revealed that the auricles were normally formed with no lesions. The external auditory canals were cleaned of any obstructing cerumen. The tympanic membranes were intactand freely mobile to pneumatoscopy. There are no significant retraction pockets. There is no inflammation visualized. No effusions are seen. Neck: Visualization and palpation of the neck revealed no mass lesions, no thyromegaly or thyroid masses. No skin lesions or inflammatory processes were detected. The cervical musculature was normal to palpation. Lymphatics (cervical): There were no palpable lymph nodes in the posterior triangle, submandibular triangle, jugulodigastric region, or central neck. Lungs: Breathing quietly. No use of accessory muscles. Heart: Regular rate. No JVD. Procedure: Due to patient's inability to cooperate with mirror exam or concern for structures otherwise not evaluated, fiberoptic examination of the larynx was performed. The nose was first topically decongested with topical oxymetazoline 0.05% spray and topically anesthetized with topical Lidocaine 4% spray. Nasopharynx was visualized and was without masses or lesions. Fiberoptic examination revealed A small mucous retention cyst on the posterior aspect of the right palatine tonsil. Vocal cord mobility was normal without paralysis or paresis. There was no significant edema or erythema of the larynx. Novocal cord masses were visualized. Exam was negative for post cricoid or pyriform sinuses lesions. The patient tolerated the procedure well. Patient should refrain from eating or drinking for 30-45 minutes due to anesthesia of the pharynx and possible interference with swallowing. Assessment: 73-year-old female with a small mucous retention cyst on the posterior aspect of the palatine tonsil on the right. Plan: Reassurance provided. Follow-up p.r.n. I spent a total of 45 minutes on the date of service in preparation, delivery, and documentation ofthe care provided to the above patient, excluding any time spent on the performance of any procedures or separately billable services. Amilcar Dawson DO, FACS [facility] Otolaryngology Head and Neck Surgery [place], [place] 11/10/2023 8:46 AM documented in this encounter Nursing Notes * Delmy Hernandez LPN - 11/10/2023 7:42 AM EDT Pt presents today due to her PCP finding an abnormality in her throat. Pt states she has a sore throat, she always has a clammy mouth but nothing more. Per chart review: Note: Nodule on palate near uvula seen on EGD. documented in this encounter Plan of Treatment Upcoming Encounters Date Type Department Care Team (Late st Contact Info) Description 01/02/2024 10:00 AM EDT Nurse Only Ancillary 65 [facility] [address] [place] [address] College, Nurse Annual Wellness Visit [address] [address] 01/26/2024 2:20 PM EDT Office Visit Family Practice 65 [facility] [address] [place] [address] Perfecto Sauceda DO [address] [place] [address] Scheduled Referrals Name Type Priority Associated Diagnoses Order Schedule ADULT/PEDS OTOLARYNGOLOGY REFERRAL OP Referral Within 30 days (routine) Thrush Ordered: 10/26/2023 Health Maintenance Due Date Last Done Comments COLONOSCOPY-ANNUAL AGES 18-100 12/30/2023 12/29/2022, 12/29/2022, 11/22/2016, Additional history exists GFR 06/16/2024 06/16/2023, 09/2022, 03/24/2023, Additional history exists Depression Screening 09/06/2024 09/06/2023 O2 ASSESSMENT COMPLETED IN PAST YEAR FOR COPD 10/25/2024 10/26/2023 DISCUSS TOBACCO CESSATION (REFER TO SMARTSET #3291) 10/29/2024 10/30/2023 (Discussed) Albumin/Creatinine Ratio 01/27/2025 01/27/2022 DTaP,Tdap,and Td Vaccines (4 - Td or Tdap) 02/16/2025 02/16/2015, 05/20/2008, 05/20/2008 DXA Scan 07/26/2025 07/26/2023, 01/13, 02/17/2004, Additional history exists VITAMIN D LEVEL ONCE IN A LIFETIME-USE SMARTSET# [id number] Completed 08/16/2018 Zoster Vaccines Completed 06/02/2021, 01/18/2021 Pneumococcal Vaccine: 65+ Years Completed 01/27/2022, 01/18/2021, 07/13/2015 Alpha-1 Antitrypsin Completed 09/30/2022 COLONOSCOPY-EVERY 5 YRS AGES 18-100 Discontinued 12/29/2022, 12/29/2022, 11/22/2016, Additional history exists Influenza Vaccine (FLU shot) Completed 04/24/2023, 05/02/2022, 05/05/2021, Additional history exists LUNG CANCER SCREENING - USE SMARTSET 48692 Completed 09/20/2023, 09/09/2018 COVID-19 Vaccine Completed 10/04/2023, 08/2022, 07/23/2021, Additional history exists GARDASIL-HPV IMMUNIZATION SERIES Aged Out No longer eligible based on patient's age to complete this topic Hepatitis B Aged Out No longer eligi ble based on patient's age to complete this topic MENINGOCOCCAL (MENACTRA/MENVEO) Aged Out No longer eligible based on patient's age to complete this topic documented as of this encounter Medical Devices Not on filedocumented as of this encounter Visit Diagnoses Diagnosis Mucous cyst of tonsil- Primary Other chronic disease of tonsils and adenoids documented in this encounter Advance Directives Documents on File Type Date Recorded Patient [employer] Expl anation Power of Hot Pond Operator 12/17/2018 POWER OF A TTORNEY Latest Code Status on File Code Status Date Activated Date Inactivated Comments No Code 01/07/2023 8:13 PM 01/09/2023 7:16 PM This order reflects the patients wishes and were consensually agreed upon. Question Answer Comments Discussion of Advance Directives occurred with: Patient Care Teams Case Packer And Sealer Relationship Specialty Start Date End Date Perfecto Sauceda DO 293 [place] [address] PCP - General Internal Medicine 01/27/22 documented as of this encounter
--- OUTSIDE RECORDS SUMMARY | 2023-11-18 09:39 | External Medical Summary | Summary of Care ---
Author Name Unknown Organization [facility] Address [address] [place] [address] Phone [phone] Care Team Providers Care Farm Machine Tender Name Role Phone Ashutosh Sauceda DO Primary Care Provider [phone] Reason for Visit * Reason Comments Medication Refill Encounter Details Date Type Department Care Team (Late st Contact Info) Description 11/01/2023 Refill Family Practice [address] [place] [address] [place] [phone] Ashutosh Sauceda DO [address] [place] [address] Lumbar degenerative disc disease Allergies Active Allergy Reactions Criticality Noted Date Comments Ivp Dye Itching,Rash 04/07/2004 Hot flash. documented as of this encounter (statuses as of 11/01/2023) Medications Medication Sig Dispensed Refills Start Date End Date Status Cholecalciferol (VITAMIN D) 2000 UNITS Tablet Take [...] Active Magnesium Oxide (Antacid) 400 MG Oral TabletIndications:M igraine without aura and without status migrainosus, not intractable Take 400 mg by mouth every evening. 100 Tablet 1 01/11/2023 Active Additional Information Patient taking differently:400 mg OralDaily(AM), Reported on 05/15/2023 Riboflavin 400 MG Oral TabletIndications:M igraine without aura and without status migrainosus, not intractable Take 1 Tablet by mouth in the morning. 100 Tablet 1 01/11/2023 Active busPIRone HCl 10 MG Oral Tablet (Buspar)Indications :Anxiety state Take 1 Tablet by mouth in the morning and 1 Tablet before bedtime. 200 Tablet 5 05/15/2023 Active Furosemide 40 MG Oral Tablet (Lasix)Indications: Bilateral leg edema Take 1 Tablet by mouth in the morning. 100 Tablet 3 05/15/2023 Active Potassium Chloride ER 10 MEQ Oral Tablet Extended ReleaseIndications: Bilateral leg edema Take 1 Tablet by mouth in the morning. 100 Tablet 3 05/15/2023 Active DULoxetine HCl 60 MG Oral Capsule Delayed Release Particles (Cymbalta) TAKE ONE CAPSULE BY MOUTH EVERY DAY. DO NOT CUT, CRUSH OR CHEW 90 Capsule 5 05/24/2023 05/23/20 24 Active Atorvastatin Calcium 40 MG Oral Tablet (Lipitor)Indication s:Hyperlipidemia, unspecified hyperlipidemia type TAKE 1 TABLET BY MOUTH DAILY 90 Tablet 3 05/24/2023 05/23/20 24 Active Metoprolol Succinate ER 50 MG Oral Tablet Extended Release 24 Hour (toPROL XL)Indications:Esse ntial hypertension with goal blood pressure less than 140/90 TAKE ONE TABLET BY MOUTH EVERY DAY IN THE MORNING 100 Tablet 3 06/09/2023 06/08/20 24 Active Apixaban 2.5 MG Oral Tablet (Eliquis) Take 1 Tablet by mouth in the morning and 1 Tablet before bedtime. 200 Tablet 3 06/16/2023 Active hydrOXYzine HCl 25 MG Oral TabletIndications:A nxiety state TAKE ONE TABLET BY MOUTH THREE TIMES A DAY NEEDED FOR ANXIETY 300 Tablet 2 07/29/2023 07/28/20 24 Active guaiFENesin ER 600 MG Oral Tablet Extended Release 12 Hour (Mucinex)Indication s:COPD, group D, by GOLD 2017 classification (HCC) Take 1 Tablet by mouth 2 times [...] Respimat 1.25 MCG/ACT Inhalation Aerosol Solution (Tiotropium [place] Monohydrate)Indicat ions:COPD, group A, by GOLD 2017 classification ([facility]) INHALE 2 PUFFS BY MOUTH IN THE MORNING 12 g 3 10/02/2023 10/01/19 25 Active Omeprazole 10 MG Oral Capsule Delayed Release (Prilosec) TAKE ONE CAPSULE BY MOUTH EVERY DAY 30 TO 60 MIN BEFORE BREAKFAST 100 Capsule 3 10/09/2023 Active Ferrous Sulfate 325 (65 Fe) MG Oral Tablet (Feosol) Take 1 Tablet by mouth daily with breakfast. 0 10/12/2023 Active Fluconazole 100 MG Oral Tablet (Diflucan)Indicatio ns:Thrush 2 for 1 day, then 1 tablet for 7 days. 8 Tablet 0 10/30/2023 Active Alendronate Sodium 70 MG Oral Tablet (Fosamax)Indication s:Age-related osteoporosis without current pathological fracture TAKE 1 TABLET BY MOUTH ONCE A WEEK WITH 8 OZ WATER, 30 MINUTES BEFORE FIRST MEAL OF THE DAY. REMAIN UPRIGHT FOR 30 MIN AFTER TAKING TABLET 15 Tablet 3 10/31/2023 10/31/19 25 Active Gabapentin 300 MG Oral Capsule (Neurontin)Indicati ons:Lumbar degenerative disc disease TAKE ONE CAPSULE BY MOUTH EVERY MORNING, AT NOON, AND BEFORE BEDTIME 300 Capsule 3 11/01/2023 11/01/19 25 Active Gabapentin 300 MG Oral Capsule (Neurontin)Indicati ons:Lumbar degenerative disc disease TAKE ONE CAPSULE BY MOUTH EVERY MORNING, AT NOON, AND BEFORE BEDTIME 300 Capsule 3 09/30/2022 11/01/19 24 Discontinu ed(Refill) documented as of this encounter (statuses as of 11/01/2023) Active Problems Problem Noted Date Diagnosed Date [...] as of this encounter (statuses as of 11/01/2023) Resolved Problems Problem Noted Date Diagnosed Date [...] as of this encounter (statuses as of 11/01/2023) Immunizations Name Administration Dates Next Due COVID-19 mRNA, LNP-s, No Pre serve, 2-Dose Series (Roost) 11/12/2020,10/22/2020 COVID-19, LNP-s, No Preserve , Cedric-sucrose, Ages 12+ (Pfizer) 07/23/2021 COVID-19, MRNA-LNP, 23-24, P F, 30 MCG/0.3 mL, 12 YRS AND ABOVE, IM ([facility] 10/04/2023 Covid-19, Mrna, Lnp-s, Pf, B ivalent, 30 Mcg, IM, 12 yrs and above (Roost) 12/12/2022 Pneumococcal Conjugate Vacci ne, 20-valent ([id number]) 01/27/2022 Pneumococcal Polysaccharide PPV23 (Pneumovax) 01/18/2021,07/13/2015 RSV [...] on file documented as of this encounter Functional Status Functional Status Response [...] pt 01/07/2023 documented as of this encounter Miscellaneous Notes * Telephone Encounter - Ashutosh Sauceda DO - 11/01/2023 9:05 PM EDTSigned Prescriptions: Disp Refills Gabapentin 300 MG Oral Capsule (Neurontin) 300 Ca*3 Sig: TAKE ONE CAPSULE BY MOUTH EVERY MORNING, AT NOON, AND BEFORE BEDTIME Authorizing Provider: ASHUTOSH SAUCEDA * Telephone Encounter - Olman Paulino [facility] - 11/01/2023 4:37 PM EDT Telepharmacy not authorized to fill for this medication per protocol. Please approve if appropriate. Pending Prescriptions: Disp Refills Gabapentin 300 MG Oral Capsule (Neurontin) 300 Ca*3 Sig: TAKE ONE CAPSULE BY MOUTH EVERY MORNING, AT NOON, AND BEFORE BEDTIME 10/30/2023 (in office), Visit date not found (telemedicine) 01/26/2024 If no future appointments scheduled, and last appointment is greater than a year ago, please schedule patient for a follow-up appointment Last date the medication was ordered: Pharmacy: [facility] Is this request for a controlled substance? No Urine Drug Screen:No results found. However, due to the size of the patient record, not all encounters were searched. Please check Results Review for a complete set of results. Patient Phone Numbers Labs: Lab Results Component Value Date/Time CREAT 0.8 06/16/2023 06:55 PM CREAT 0.8 08/17/2020 03:19 PM POTASSIUM 4.0 06/16/2023 06:55 PM POTASSIUM 4.5 08/17/2020 03:19 PM TSH 2.56 06/16/2023 08:45 AM TSH 3.59 08/16/2018 04:55 PM LDLCALC 58 07/31/2023 01:51 PM LDLCALC 115 10/16/2019 12:40 PM LDLDIRECT 54 05/11/2022 04:19 PM LDLDIRECT 70 08/17/2020 03:19 PM ALT 17 06/16/2023 06:55 PM ALT 15 08/17/2020 03:19 PM Electronically signed by Olman Paulino [facility] at 11/01/2023 4:37 PM EDT * Telephone Encounter - Olman Paulino RP - 11/01/2023 4:37 PM EDT Pending Prescriptions: Disp Refills Gabapentin 300 MG Oral Capsule (Neurontin) 300 Ca*3 Sig: TAKE ONE CAPSULE BY MOUTH EVERY MORNING, AT NOON, AND BEFORE BEDTIME Electronically signed by Olman Paulino [facility] at 11/01/2023 4:37 PM EDT documented in this encounter Plan of Treatment Upcoming Encounters Date Type Department Care Team (Late st Contact Info) Description 11/10/2023 8:00 AM EDT Office Visit Otolaryngology [facility] [address] [place] [address] Amilcar Dawson DO [address] [place] [address] 01/02/2024 10:00 AM EDT Nurse Only Ancillary 65 [facility] [address] [facility], [place] [address] College, Nurse Annual Wellness Visit [address] [facility] [address] [facility], [place] [address] 01/26/2024 2:20 PM EDT Office Visit Family Practice 65 [facility] [address] [facility], [place] [phone] Ashutosh Sauceda, DO 293 [facility], [place] [address] Health Maintenance Due Date Last Done Comments [...] D LEVEL ONCE IN A LIFETIME-USE SMARTSET# [id number] Completed 08/16/2018 Zoster Vaccines Completed 06/02/2021, 01/18/2021 Pneumococcal Vaccine: 65+ Years Completed 01/27/2022, 01/18/2021, 07/13/2015 Alpha-1 Antitrypsin Completed 09/30/2022 COLONOSCOPY-EVERY 5 YRS AGES 18-100 Discontinued 12/29/2022, 12/29/2022, 11/22/2016, Additional history exists Influenza Vaccine (FLU shot) Completed 04/24/2023, 05/02/2022, 05/05/2021, Additional history exists LUNG CANCER SCREENING - USE SMARTSET 88160 Completed 09/20/2023, 09/09/2018 COVID-19 Vaccine Completed 10/04/2023, [...] as of this encounter Visit Diagnoses Diagnosis Lumbar degenerative disc disease Degeneration of lumbar or lumbosacral intervertebral disc documented in this encounter Advance Directives Documents on File Type Date Recorded Patient Interventional Cardiologist Expl anation Power of Advertising Editor 12/17/2018 POWER OF A TTORNEY Latest Code Status on File Code Status Date Activated Date Inactivated Comments No Code 01/07/2023 8:13 PM 01/09/2023 7:16 PM This order reflects the patients wishes and were consensually agreed upon. Question Answer Comments Discussion of Advance Directives occurred with: Patient Care Teams Farm Machine Tender Relationship Specialty Start Date End Date Ashutosh Sauceda DO [address] [place] [address] PCP - General Internal Medicine 01/27/22 documented as of this encounter
--- OUTSIDE RECORDS SUMMARY | 2023-11-18 09:39 | External Medical Summary | Summary of Care ---
Author Name Unknown Organization [facility] Address [address] [facility] [address] Phone [phone] Care Team Providers Care Ssds Mk 2 Advanced Operator Name Role Phone Perfecto Sauceda DO Primary Care Provider [phone] Encounter Details Date Type Department Care Team (Late st Contact Info) Description 11/09/2023 Population Health External Data Unspecified Department Allergies Active Allergy Reactions Criticality Noted Date Comments Ivp Dye Itching,Rash 04/07/2004 Hot flash. documented as of this encounter (statuses as of 11/14/2023) Medications Medication Sig Dispensed Refills Start Date [...] :COPD, group D, by GOLD 2017 classification ([facility]) Take 1 Tablet by mouth 2 times [...] Respimat 1.25 MCG/ACT Inhalation Aerosol Solution (Tiotropium [place] Monohydrate)Indicati ons:COPD, group A, by GOLD 2017 classification ([facility]) INHALE 2 PUFFS BY MOUTH IN THE [...] as of this encounter (statuses as of 11/14/2023) Active Problems Problem Noted Date Diagnosed Date [...] as of this encounter (statuses as of 11/14/2023) Resolved Problems Problem Noted Date Diagnosed Date [...] as of this encounter (statuses as of 11/14/2023) Immunizations Name Administration Dates Next Due COVID-19 mRNA, LNP-s, No Pre serve, 2-Dose Series (Broadersheet) 11/12/2020,10/22/2020 COVID-19, LNP-s, No Preserve , Cedric-sucrose, Ages 12+ (Broadersheet) 07/23/2021 COVID-19, MRNA-LNP, 23-24, P F, 30 MCG/0.3 mL, 12 YRS AND ABOVE, IM ([facility]) 10/04/2023 Covid-19, Mrna, Lnp-s, Pf, B ivalent, 30 Mcg, IM, 12 yrs and above (Broadersheet) 12/12/2022 Pneumococcal Conjugate Vacci ne, 20-valent ([id number]) 01/27/2022 Pneumococcal Polysaccharide PPV23 (Pneumovax) 01/18/2021,07/13/2015 RSV [...] money to buy more. Never true 09/06/19 Within the past 12 months, t he [...] pt 01/07/2023 documented as of this encounter Plan of Treatment Upcoming Encounters Date Type Department Care Team (Late st Contact Info) Description 01/02/2024 10:00 AM EDT Nurse Only Ancillary [address] [place] [address] [facility] [place] [address] College, Nurse Annual Wellness Visit [address] [facility] [address] [facility] [place] [address] 01/26/2024 2:20 PM EDT Office Visit Family Practice 65 [facility] [place] [address] [facility] [place] [phone] Perfecto Sauceda, DO 293 [place] [address] Health Maintenance Due Date Last Done Comments [...] D LEVEL ONCE IN A LIFETIME-USE SMARTSET# [id number] Completed 08/16/2018 Zoster Vaccines Completed 06/02/2021, 01/18/2021 Pneumococcal Vaccine: 65+ Years Completed 01/27/2022, 01/18/2021, 07/13/2015 Alpha-1 Antitrypsin Completed 09/30/2022 COLONOSCOPY-EVERY 5 YRS AGES 18-100 Discontinued 12/29/2022, 12/29/2022, 11/22/2016, Additional history exists Influenza Vaccine (FLU shot) Completed 04/24/2023, 05/02/2022, 05/05/2021, Additional history exists LUNG CANCER SCREENING - USE SMARTSET 50901 Completed 09/20/2023, 09/09/2018 COVID-19 Vaccine Completed 10/04/2023, [...] Not on filedocumented as of this encounter Advance Directives Documents on File Type Date Recorded Patient Assistant Production Editor Expl anation Power of Devops Developer 12/17/2018 POWER OF A TTORNEY Latest Code Status on File Code Status Date Activated Date Inactivated Comments No Code 01/07/2023 8:13 PM 01/09/2023 7:16 PM This order reflects the patients wishes and were consensually agreed upon. Question Answer Comments Discussion of Advance Directives occurred with: Patient Care Teams Ssds Mk 2 Advanced Operator Relationship Specialty Start Date End Date Perfecto Sauceda DO [address] [place] [address] PCP - General Internal Medicine 01/27/22 documented as of this encounter
--- NOTE | 2023-11-18 11:50 | Electrocardiogram Report ---
Test Reason : Blood Pressure : / mmHG Vent. Rate : 067 BPM Atrial Rate : 067 BPM P-R Int : 140 ms QRS Dur : 078 ms QT Int : 400 ms P-R-T Axes : 041 048 052 degrees QTc Int : 422 ms Sinus rhythm with Premature atrial complexes Otherwise normal ECG When compared with ECG of 06-MAR-2023 12:44, Premature atrial complexes are now Present Criteria for Anterior infarct are no longer Present Criteria for Anterolateral infarct are no longer Present Confirmed by Tawanda Escobedo ([id number]) on 11/18/2023 11:50:28 AM Referred By: REFERRED SELF Confirmed By:Tawanda Escobedo
[2023-11-18] MEDS ORDERED: ALBUTEROL HFA 8 GM INHALER INH PRN (13:14)
--- NOTE | 2023-11-18 13:21 | Orthopedic Consultation ---
Date of Consultation November 18, 2023 Assessment & Plan (1) Closed fracture of right hip: 73-year-old female with acute, impacted subcapital fracture of the right femoral neck Patient was seen in conjunction with Dr. Zheng. Findings and plan discussed with the patient and her son. It was recommended to undergo a total hip arthroplasty if the patient would like to continue to be active. Risk and benefits were discussed with the patient. Consent was obtained. Plan will be for OR tomorrow. Hold Eliquis. N.p.o. at midnight. Preop orders will be placed including 2 g of Ancef, 1 g TXA preop and IntraOp, IV LRs, abduction pillow to OR. Also spoke with medicine service about the cat scratch and recommended IV Unasyn. Patient's postoperative course was discussed including home health/physical therapy for 2 weeks after her surgery and then switching to outpatient physical therapy which they would like to do at [facility] in [facility] which is closer to home for them. Her and her son's questions were addressed. She will follow-up in our office 2 weeks after her surgery. Supervising Physician Co-Signing Physician Notes Agree with above note. I saw and examined the patient, reviewed her imaging studies, discussed her diagnosis with the patient and her son, and reviewed treatment options, risks/benefits of surgery, expected outcomes, and performed the substantive portion of the visit. Patient is at elevated risk for surgical complications due to her smoking history, history of stroke, being on blood thinners, and having a recent cat scratch on the operative leg. Her x-rays show a femoral neck fracture with apex anterior angulation, likely unstable and at risk for nonunion/AVN with pinning or ORIF. Given her high activity level, i think a total hip is her best surgical option. Nonsurgical option would be bedrest and a wheelchair, which has a high risk of complications. After reviewing her options, she elects to proceed with surgery. We will plan on doing this tomorrow. She will hold her eliquis today. Admit to internal medicine service. IV unasyn recommended due to cat scratch. History of Present Illness Reason for Consultation: Right hip fracture History of Present Illness Carmen is a 73-year-old female past medical history significant for COPD, tobacco use, history of stroke, PE who presented to the emergency department today after sustaining a fall this morning. She noted immediate pain and was not able to get up and walk. She says that she did hit her head but did not lose any consciousness. Most of her pain is in her right hip. She denies any numbness or tingling in her leg. She was taking care of of cats last night and one of the cats scratched her. She put Band-Aids over top of it. She has history of right total knee replacement and right total shoulder replacement. She says that she has been smoking since she was a teenager. She did have a period where she quit when she has kids. She smokes every other day about. She denies any allergies to metals or any history of MRSA infection. She is on Eliquis 2.5 mg twice a day. She and her son state that she is very active and constantly on the go and is interested in surgical intervention to keep her active. All the risks and benefits of surgery were discussed with her and she elected to proceed with recommended surgery right total hip arthroplasty, dual mobility cup. This would be done with Dr. Zheng tomorrow. Allergies Allergy/AdvReac Type Severity Reaction Status Date / Time Iodinated Contrast Media Allergy Intermediate Hives Verified 11/18/23 09:18 Home Medications Medication Instructions Recorded Confirmed Type albuterol sulfate 90 mcg/actuation 2 puff inhalation Q6H PRN 09/09/18 11/18/23 History aerosol inhaler (Ventolin HFA) Shortness Of Breath calcium carbonate (Calcium 600) 600 mg PO QAM 12/15/18 11/18/23 History atorvastatin 40 mg tablet 40 mg PO QAM 04/14/21 11/18/23 History duloxetine 60 mg capsule,delayed 60 mg PO HS 04/14/21 11/18/23 History release gabapentin 300 mg capsule 300 mg PO TID 01/11/22 11/18/23 History ondansetron 4 mg disintegrating 4 - 8 mg (1 - 2 x 4 mg) PO Q8H PRN 01/12/22 11/18/23 Rx tablet nausea and vomiting #14 tabs aspirin 81 mg tablet,delayed 81 mg PO QAM 01/13/22 11/18/23 History release alendronate 70 mg tablet 70 mg PO WK 01/13/23 11/18/23 History cholecalciferol (vitamin D3) 50 50 mcg PO QAM 01/13/23 11/18/23 History mcg (2,000 unit) capsule (Vitamin D3) cyanocobalamin (vitamin B-12) 1,000 mcg PO QAM 01/13/23 11/18/23 History 1,000 mcg tablet (Vitamin B-12) guaifenesin 600 mg tablet, 600 mg PO BID PRN Congestion 01/13/23 11/18/23 History extended release 12 hr (Mucinex) hydroxyzine HCl 10 mg tablet 10 mg PO TID 01/13/23 11/18/23 History metoprolol succinate 50 mg 50 mg PO QAM 01/13/23 11/18/23 History tablet,extended release 24 hr (Toprol XL) tiotropium bromide 2.5 2 inh inhalation QAM 01/13/23 11/18/23 History mcg/actuation mist for inhalation (Spiriva Respimat) furosemide 40 mg tablet 40 mg PO DAILY 03/06/23 11/18/23 History potassium chloride 10 mEq 10 meq PO QAM 03/06/23 11/18/23 History tablet,extended release polyethylene glycol 3350 17 gram 17 g PO DAILY #30 ea 03/11/23 11/18/23 Rx oral powder packet (Miralax) sennosides 8.6 mg-docusate sodium 1 tab PO BID #60 tabs 03/11/23 11/18/23 Rx 50 mg tablet (Senokot-S) albuterol sulfate 0.63 mg/3 mL 0.63 mg continuous nebulization UD 11/18/23 11/18/23 History solution for nebulization apixaban 2.5 mg tablet (Eliquis) 2.5 mg PO BID 11/18/23 11/18/23 History buspirone 10 mg tablet 10 mg PO BID 11/18/23 11/18/23 History fluticasone furoate 200 1 inh inhalation QAM 11/18/23 11/18/23 History mcg-vilanterol 25 mcg/dose inhalation powder (Breo Ellipta) omeprazole 10 mg capsule,delayed 10 mg PO QAM 11/18/23 11/18/23 History release Patient History Medical History (Updated 11/18/23 @ 14:29 by Lavell Kemp MD) Arthritis Chronic pain A-fib Paroxysmal Follows with [facility] Taking warfarin History of pulmonary embolism 2019, Taking warfarin Migraine Hypertension Hyperlipidemia Poor historian Memory loss TIA (transient ischemic attack) 2019 Lupus Emphysema lung Surgical History S/P trigger finger release Right trigger finger release (04/29/21): MAC at [facility] History of total hysterectomy with bilateral salpingo-oophorectomy (BSO) History of arthroscopy of left shoulder History of arthroscopy of right shoulder History of tooth extraction all upper teeth History of sinus surgery History of bilateral cataract extraction Family History Other Cancer Heart disease Hypertension No family history of adverse response to anesthesia Social History Smoking Status: Current every day smoker Tobacco Type: Cigarettes Cigarettes Per Day: 2 cigs/day; Second Hand Exposure: No; Do You Dip or Chew Tobacco: No; Hx Alcohol Use: Yes Hx Substance Use: No Preferred Language: Tristanian Communication Ability: Effective Visual Impairment: No Limitations Director Of Radiology Required: No Beliefs That Will Affect Care: None marital status: Current Living Situation: Alone current occupational status: retired Feels Safe at Home: Yes Safety Concerns: Feels Safe At This Time Assistive Devices: Raised Toilet Seat, Walker and Other Review of Systems Review of Systems: Per HPI Physical Exam Physical Exam: Patient is laying in bed awake alert and oriented and calm and cooperative during exam. Right lower extremity: Patient is leg is propped up with pillows underneath of h er thigh. Slightly shortened when compared to other leg. She is tender over her right hip. Thigh is soft and compressible. She is able to freely move all of her toes and pump her ankle up and down. 2+ dorsal pedal pulses present. She has sensation intact distally to light touch. She has approximately 3 cm scratch with some slight bloody drainage over the lateral aspect of her distal leg. No signs of infection including erythema, swelling, warmth or puslike drainage. Cardiovascular: Positive S1, positive S2 no murmurs, rubs or gallops Pulmonary: Lungs are clear to auscultation bilaterally. Patient has productive cough during deep inhalation. Unable to hear any wheezes, rales or rhonchi. Results & Data Vital Signs (Past 12 Hours) Vital Signs Temp Pulse Pulse Resp BP BP Pulse Ox 11/18/23 12:30 68 15 127/60 97 11/18/23 12:08 63 11/18/23 12:06 67 18 133/63 97 11/18/23 10:00 65 21 127/72 98 11/18/23 09:00 69 17 98 11/18/23 08:15 71 11/18/23 08:00 71 24 138/82 92 11/18/23 07:58 11/18/23 07:58 89 L 11/18/23 07:54 70 18 93 11/18/23 07:24 36.8 C 70 15 148/87 H 94 O2 Del Method O2 Flow Rate 11/18/23 12:30 Nasal Cannula 2 11/18/23 12:08 11/18/23 12:06 Nasal Cannula 2 11/18/23 10:00 Nasal Cannula 2 11/18/23 09:00 Nasal Cannula 2 11/18/23 08:15 11/18/23 08:00 Nasal Cannula 2 11/18/23 07:58 Room Air 11/18/23 07:58 Nasal Cannula 2 11/18/23 07:54 Nasal Cannula 2 11/18/23 07:24 Room Air Diagnostic Findings Hip X-Ray 11/18/23 07:58 XR hip RT min 2V CLINICAL HISTORY: fall TECHNIQUE: 2 views of the right hip and single frontal view of the pelvis were obtained. Comparison: Comparison is made to CT abdomen pelvis 03/06/2023 FINDINGS: There is an impacted subcapital fracture of the right femur. Joint spaces are well-preserved. No soft tissue abnormality is seen. IMPRESSION: Impacted subcapital fracture of the right femur. ACT 112: Negative or not required by law. Electronically signed by: Car Castellon M.D. 11/18/2023 8:47 AM Abdomen/Pelvis CT 11/18/23 07:59 CT abd pelvis wo con CLINICAL HISTORY: Trauma, R hip pain, on eliquis TECHNIQUE: Helical axial images of the abdomen and pelvis were obtained. Automated dose lowering techniques and/or adjustment according to patient size were utilized for this exam. This exam was performed without intravenous contrast. COMPARISON: Comparison is made to CT abdomen pelvis 03/06/2023 FINDINGS: Lower chest: For findings above the diaphragm, please see CT chest performed same day. Liver: Unremarkable. No focal lesions are seen. Gallbladder and biliary tree: No calcified gallstones. Normal caliber wall. No intra- or extrahepatic biliary ductal dilation. Pancreas: Unremarkable, no focal lesions. Spleen: Unremarkable. Adrenals: Lipid rich adrenal adenomas are seen bilaterally. Kidneys and ureters: Calcifications are in the capsule of the left kidney, unchanged. Bladder: Unremarkable. Reproductive organs: Unremarkable. Bowel: The appendix is normal. Lymph nodes Retroperitoneal: Unremarkable. Pelvic: Unremarkable. Mesenteric: Unremarkable. Peritoneum: Normal. Vessels: Atherosclerotic calcifications are seen. Abdominal wall: A fat-containing umbilical hernia is seen. Bones: There is an impacted subcapital fracture of the right femoral neck. No pelvic ring fractures are seen. IMPRESSION: 1. Impacted subcapital fracture of the right femoral neck. 2. Redemonstration of cortical calcification of the left kidney. ACT 112: Negative or not required by law. Electronically signed by: Car Castellon M.D. 11/18/2023 9:18 AM (1) Closed fracture of right hip Encounter type: initial encounter Qualified Code(s): S72.001A - Fracture of unspecified part of neck of right femur, initial encounter for closed fracture
[2023-11-18] MEDS ORDERED: ALBUTEROL 0.5% NEB SOLN 2.5 MG/0.5 ML VIAL INH PRN (13:37)
[2023-11-18] MEDS ORDERED: AMPICILLIN SOD/SULBACTAM SOD 3 GM VIAL IV SCH (13:45)
[2023-11-18] MEDS: oxyCODONE HCL IR 5 MG TAB (IMMEDIATE RELEASE) PO STA (14:01)
[2023-11-18] MEDS: AMPICILLIN/SULBACTAM SOD 3,000 MG in SODIUM CHLOR 0.9% MINI-B 100 ML IV SCH (14:05)
--- NOTE | 2023-11-18 14:36 | History & Physical Report ---
Date of Service November 18, 2023 Assessment & Plan (1) Closed fracture of right hip: (2) Fall: (3) COPD (chronic obstructive pulmonary disease): (4) History of pulmonary embolism: Plan 73-year-old female who presented to ED with mechanical fall sustaining right hip fracture Mechanical fall with right hip [id number] and CT reviewed. Spoke with orthopedics. Plan for OR tomorrow. Last dose of Eliquis was yesterday evening. - Per RCRI, score of 1 (h/o prior TIA) with 6% risk of MACE. METS>4 and functionally independent at baseline. She is currently optimized to proceed to OR tomorrow. -Continue pain management, bowel regimen, bedrest. Hold all anticoagulation. N.p.o. from midnight. PT OT eval after surgery. Wound rt leg due to cat scratch yesterday- wound does not look overtly infected. Will start empiric Unasyn for now. Local wound care. Paroxysmal atrial fibrillation-currently in sinus rhythm. Continue Toprol, hold Eliquis COPD-symptoms controlled. Not in exacerbation. Continue home inhalers. Nebs as needed. Encourage use of incentive spirometry. Anxiety-on BuSpar. Patient reports using hydroxyzine anymore History of TIA-on aspirin, statin DVT prophylaxis-hold anticoagulation for surgery tomorrow. Last dose of Eliquis was yesterday evening. Resume after surgery when okay with surgical team. Disposition-plan for OR tomorrow. CODE STATUS-full code Updated son at bedside Time spent-approximately 80 minutes History of Present Illness Chief Complaint: Mechanical fall with right hip fracture Primary Care Provider: Perfecto Sauceda DO 73-year-old female with history of hypertension, PE, TIA, COPD who presented to ED after mechanical fall this morning. States around 5 AM this morning, she tripped and fell down striking her head but without any loss of consciousness. She was able to crawl without bearing weight to resident and was encountered by the family and brought to the ED via EMS. Patient was found to have right hip fracture. Patient has been seen by orthopedics and plan for OR tomorrow. Pain is currently controlled. Also states he had cat scratch on her right leg yesterday by her pet cat. Denies any fever, chills, chest pain or shortness of breath nausea or vomiting. States history of TIA in 2019. History of PE on Eliquis, last dose was yesterday evening. Denies any cardiac issues. Pulmonary issues are stable. I spoke with orthopedics at bedside. Allergies Allergy/AdvReac Type Severity Reaction Status Date / Time Iodinated Contrast Media Allergy Intermediate Hives Verified 11/18/23 09:18 Home Medications Medication Instructions Recorded Confirmed Type albuterol sulfate 90 mcg/actuation 2 puff inhalation Q6H PRN 09/09/18 11/18/23 History aerosol inhaler (Ventolin HFA) Shortness Of Breath calcium carbonate (Calcium 600) 600 mg PO QAM 12/15/18 11/18/23 History atorvastatin 40 mg tablet 40 mg PO QAM 04/14/21 11/18/23 History duloxetine 60 mg capsule,delayed 60 mg PO HS 04/14/21 11/18/23 History release gabapentin 300 mg capsule 300 mg PO TID 01/11/22 11/18/23 History ondansetron 4 mg disintegrating 4 - 8 mg (1 - 2 x 4 mg) PO Q8H PRN 01/12/22 11/18/23 Rx tablet nausea and vomiting #14 tabs aspirin 81 mg tablet,delayed 81 mg PO QAM 01/13/22 11/18/23 History release alendronate 70 mg tablet 70 mg PO WK 01/13/23 11/18/23 History cholecalciferol (vitamin D3) 50 50 mcg PO QAM 01/13/23 11/18/23 History mcg (2,000 unit) capsule (Vitamin D3) cyanocobalamin (vitamin B-12) 1,000 mcg PO QAM 01/13/23 11/18/23 History 1,000 mcg tablet (Vitamin B-12) guaifenesin 600 mg tablet, 600 mg PO BID PRN Congestion 01/13/23 11/18/23 History extended release 12 hr (Mucinex) hydroxyzine HCl 10 mg tablet 10 mg PO TID 01/13/23 11/18/23 History metoprolol succinate 50 mg 50 mg PO QAM 01/13/23 11/18/23 History tablet,extended release 24 hr (Toprol XL) tiotropium bromide 2.5 2 inh inhalation QAM 01/13/23 11/18/23 History mcg/actuation mist for inhalation (Spiriva Respimat) furosemide 40 mg tablet 40 mg PO DAILY 03/06/23 11/18/23 History potassium chloride 10 mEq 10 meq PO QAM 03/06/23 11/18/23 History tablet,extended release polyethylene glycol 3350 17 gram 17 g PO DAILY #30 ea 03/11/23 11/18/23 Rx oral powder packet (Miralax) sennosides 8.6 mg-docusate sodium 1 tab PO BID #60 tabs 03/11/23 11/18/23 Rx 50 mg tablet (Senokot-S) albuterol sulfate 0.63 mg/3 mL 0.63 mg continuous nebulization UD 11/18/23 11/18/23 History solution for nebulization apixaban 2.5 mg tablet (Eliquis) 2.5 mg PO BID 11/18/23 11/18/23 History buspirone 10 mg tablet 10 mg PO BID 11/18/23 11/18/23 History fluticasone furoate 200 1 inh inhalation QAM 11/18/23 11/18/23 History mcg-vilanterol 25 mcg/dose inhalation powder (Breo Ellipta) omeprazole 10 mg capsule,delayed 10 mg PO QAM 11/18/23 11/18/23 History release Past Med/Surg History Medical History (Updated 11/18/23 @ 14:29 by Lavell Kemp MD) Arthritis Chronic pain A-fib Paroxysmal Follows with [facility] Taking warfarin History of pulmonary embolism 2019, Taking warfarin Migraine Hypertension Hyperlipidemia Poor historian Memory loss TIA (transient ischemic attack) 2019 Lupus Emphysema lung Surgical History S/P trigger finger release Right trigger finger release (04/29/21): MAC at [facility] History of total hysterectomy with bilateral salpingo-oophorectomy (BSO) History of arthroscopy of left shoulder History of arthroscopy of right shoulder History of tooth extraction all upper teeth History of sinus surgery History of bilateral cataract extraction Family History Other Cancer Heart disease Hypertension No family history of adverse response to anesthesia Social History Smoking Status: Current every day smoker Tobacco Type: Cigarettes Cigarettes Per Day: 2 cigs/day; Second Hand Exposure: No; Do You Dip or Chew Tobacco: No; Hx Alcohol Use: Yes Hx Substance Use: No Preferred Language: Burmese Communication Ability: Effective Visual Impairment: No Limitations Car Greaser Required: No Beliefs That Will Affect Care: None marital status: Current Living Situation: Family current occupational status: retired Feels Safe at Home: Yes Assistive Devices: Raised Toilet Seat, Walker and Other Review of Systems Review of Systems: All systems reviewed & are unremarkable except as noted in Subjective Physical Exam Physical Exam: General: Lying comfortably in bed, not in acute distress, on NC HEENT: EOMI, DENISE, MMM Chest: Clear breath sounds bilaterally, no wheezes or crackles CVS: Regular rate and rhythm, normal heart sounds, no murmur Abdomen: Soft, non tender, not distended, normal bowel sounds Neuro: Awake, alert, oriented, conversing well, non focal Extremities: Right leg shortened and externally rotated Results & Data Results & Data Vital Signs (Past 12 Hours) Vital Signs Temp Pulse Pulse Resp BP BP Pulse Ox 11/18/23 12:30 68 15 127/60 97 11/18/23 12:08 63 11/18/23 12:06 67 18 133/63 97 11/18/23 10:00 65 21 127/72 98 11/18/23 09:00 69 17 98 11/18/23 08:15 71 11/18/23 08:00 71 24 138/82 92 11/18/23 07:58 11/18/23 07:58 89 L 11/18/23 07:54 70 18 93 11/18/23 07:24 36.8 C 70 15 148/87 H 94 O2 Del Method O2 Flow Rate 11/18/23 12:30 Nasal Cannula 2 11/18/23 12:08 11/18/23 12:06 Nasal Cannula 2 11/18/23 10:00 Nasal Cannula 2 11/18/23 09:00 Nasal Cannula 2 11/18/23 08:15 11/18/23 08:00 Nasal Cannula 2 11/18/23 07:58 Room Air 11/18/23 07:58 Nasal Cannula 2 11/18/23 07:54 Nasal Cannula 2 11/18/23 07:24 Room Air Laboratory Results Short CBC 11/18/23 Range/Units 07:58 WBC 8.12 (4.8-10.8) K/ul Hgb 12.8 (12.0-16.0) g/dl Hct 40.3 (37.0-47.0) % Plt Count 277 (130-400) K/uL BMP 11/18/23 07:58 Sodium 140 Potassium 4.2 Chloride 109 H Carbon Dioxide 29 BUN 18 Creatinine 0.72 Glucose 89 Calcium 8.8 Cardiac Enzymes 11/18/23 Range/Units 07:58 Total Creatine Kinase 135 (26-192) U/L Liver Function 11/18/23 Range/Units 07:58 Total Bilirubin 0.6 (0.2-1.0) mg/dl AST 17 (13-39) U/L ALT 11 (7-52) U/L Alkaline Phosphatase 52 (34-104) U/L Albumin 3.8 (3.4-5.0) gm/dl Diagnostic Findings Hip X-Ray 11/18/23 07:58 XR hip RT min 2V CLINICAL HISTORY: fall TECHNIQUE: 2 views of the right hip and single frontal view of the pelvis were obtained. Comparison: Comparison is made to CT abdomen pelvis 03/06/2023 FINDINGS: There is an impacted subcapital fracture of the right femur. Joint spaces are well-preserved. No soft tissue abnormality is seen. IMPRESSION: Impacted subcapital fracture of the right femur. ACT 112: Negative or not required by law. Electronically signed by: Car Castellon M.D. 11/18/2023 8:47 AM Abdomen/Pelvis CT 11/18/23 07:59 CT abd pelvis wo con CLINICAL HISTORY: Trauma, R hip pain, on eliquis TECHNIQUE: Helical axial images of the abdomen and pelvis were obtained. Automated dose lowering techniques and/or adjustment according to patient size were utilized for this exam. This exam was performed without intravenous contrast. COMPARISON: Comparison is made to CT abdomen pelvis 03/06/2023 FINDINGS: Lower chest: For findings above the diaphragm, please see CT chest performed same day. Liver: Unremarkable. No focal lesions are seen. Gallbladder and biliary tree: No calcified gallstones. Normal caliber wall. No intra- or extrahepatic biliary ductal dilation. Pancreas: Unremarkable, no focal lesions. Spleen: Unremarkable. Adrenals: Lipid rich adrenal adenomas are seen bilaterally. Kidneys and ureters: Calcifications are in the capsule of the left kidney, unchanged. Bladder: Unremarkable. Reproductive organs: Unremarkable. Bowel: The appendix is normal. Lymph nodes Retroperitoneal: Unremarkable. Pelvic: Unremarkable. Mesenteric: Unremarkable. Peritoneum: Normal. Vessels: Atherosclerotic calcifications are seen. Abdominal wall: A fat-containing umbilical hernia is seen. Bones: There is an impacted subcapital fracture of the right femoral neck. No pelvic ring fractures are seen. IMPRESSION: 1. Impacted subcapital fracture of the right femoral neck. 2. Redemonstration of cortical calcification of the left kidney. ACT 112: Negative or not required by law. Electronically signed by: Car Castellon M.D. 11/18/2023 9:[address] 11/18/23 07:59 CT cervical spine wo con CLINICAL HISTORY: Trauma TECHNIQUE: Multidetector row helical CT of the cervical spine was performed without administration of intravenous contrast. Coronal and sagittal reformations were obtained. Automated dose lowering techniques and/or adjustment according to patient size were utilized for this exam. Comparison: None available at the time of this dictation. FINDINGS: No acute fractures or subluxations are identified. Degenerative changes are seen in the visualized spine. The alignment is normal. Soft tissues are unremarkable. IMPRESSION: Degenerative changes without evidence of acute bony injury. ACT 112: Negative or not required by law. Electronically signed by: Car Castellon M.D. 11/18/2023 8:[address] 11/18/23 07:59 CT chest diagnostic wo con CLINICAL HISTORY: Trauma TECHNIQUE: Multidetector row helical CT of the chest was performed. Coronal and sagittal reformations were obtained. Automated dose lowering techniques and/or adjustment according to patient size were utilized for this exam. Comparison: Comparison is made to CT chest 09/10/2018 FINDINGS: Lungs and pleura: Diffuse centrilobular and paraseptal emphysema is seen most prominent in the upper lobes. Dependent atelectasis versus scarring is seen. Heart and pericardium: Heart size is normal. No pericardial effusion. Vessels: Moderate atherosclerotic changes in the aorta and coronary arteries. Mediastinum and aries: Unremarkable. Chest wall and lower neck: Unremarkable. Abdomen: For findings below the diaphragm, please refer to CT of the abdomen dated the same. Bones: Degenerative changes in the thoracic spine. IMPRESSION: Emphysema and atelectasis versus scarring. No acute abnormalities. ACT 112: Negative or not required by law. Electronically signed by: Car Castellon M.D. 11/18/2023 9:07 AM Chest X-Ray 11/18/23 07:59 XR chest 1V portable CLINICAL HISTORY: fall TECHNIQUE: Single frontal radiograph of the chest was obtained. Comparison: Comparison is made to chest radiograph 03/06/2023 FINDINGS: No lines and tubes are seen. Calcified aortic knob is seen. The lungs are clear. No evidence of pleural effusion or pneumothorax. IMPRESSION: No acute chest disease. ACT 112: Negative or not required by law. Electronically signed by: Car Castellon M.D. 11/18/2023 8:[address] 11/18/23 07:59 CT head/brain wo con CLINICAL HISTORY: Trauma, on eliquis Technique: Contiguous axial CT images of the head were acquired from the base of the skull to the vertex without intravenous contrast administration. Images were viewed in brain, subdural and bone windows. Automated dose lowering techniques and/or adjustment according to patient size were utilized for this exam. Comparison: None available at the time of this dictation. Findings: The ventricles, basal cisterns, and cerebral sulci are normal. There is no acute intracranial hemorrhage or evidence of acute territorial infarction. Neither mass effect, shift of the midline structures, nor abnormal extra-axial fluid collections are shown. Imaged portions of the paranasal sinuses and mastoid air cells are clear. The orbits appear normal. There are no acute fractures of the calvaria or scalp swelling. Impression: No acute intracranial hemorrhage, no evidence of acute territorial infarction or other acute intracranial disease process. ACT 112: Negative or not required by law. Electronically signed by: Car Castellon M.D. 11/18/2023 8:39 AM Code Status & VTE Plan VTE Prophylaxis Plan VTE Prophylaxis will be ordered: Yes (1) Closed fracture of right hip Encounter type: initial encounter Qualified Code(s): S72.001A - Fracture of unspecified part of neck of right femur, initial encounter for closed fracture (2) Fall Encounter type: initial encounter Qualified Code(s): W19.XXXA - Unspecified fall, initial encounter
[2023-11-18] MEDS: GABAPENTIN 300 MG CAP PO SCH (14:58)
[2023-11-18] MEDS: PANTOprazole 40 MG TAB PO SCH (14:58)
[2023-11-18] MEDS: UMECLIDINIUM BROMIDE 62.5MCG/BLISTER 7 PUFFS/INHALER INH SCH (14:58)
[2023-11-18] MEDS: METOPROLOL SUCC 50MG EXT REL TAB PO SCH (14:58)
[2023-11-18] MEDS: FLUTICASONE/VILANTEROL 200/25MCG 14 PUFFS/INHALER INH SCH (14:58)
[2023-11-18] MEDS ORDERED: ALBUT/IPRATROP 3MG/0.5MG NEB 3 ML VIAL NEB PRN (15:24)
[2023-11-18] MEDS: HYDROmorphone INJ 0.5 MG/0.5 ML SYR IV PRN (15:48)
[2023-11-18] MEDS: ACETAMINOPHEN 325 MG TAB PO SCH (17:06)
[2023-11-18] MEDS: busPIRone 5 MG TAB PO SCH (20:46)
[2023-11-18] MEDS: DOCUSATE SODIUM/SENNA 50/8.6MG TAB PO SCH (20:46)
[2023-11-18] MEDS: DULoxetine HCL 60 MG CAP PO SCH (20:46)
[2023-11-19] MEDS: LACTATED RINGER'S 1,000 ML IV SCH (06:18)
[2023-11-19] MEDS ORDERED: DEXAMETHASONE SOD INJ 4 MG/ML VIAL ONE (07:13)
[2023-11-19] MEDS ORDERED: MIDAZOLAM HCL 1 MG/ML 2ML VIAL ONE (07:13)
[2023-11-19] MEDS ORDERED: ONDANSETRON INJ 2 MG/ML 2 ML VIAL ONE (07:13)
[2023-11-19] MEDS ORDERED: ROCURONIUM BROMIDE 10 MG/ML 5 ML VIAL IV ONE (07:13)
[2023-11-19] MEDS ORDERED: PROPOFOL IV EMULSION 10 MG/ML 20 ML VIAL IV ONE (07:13)
[2023-11-19] MEDS ORDERED: GLYCOPYRROLATE 0.2 MG/ML VIAL ONE (07:13)
[2023-11-19] MEDS ORDERED: fentaNYL citrate PF 100 MCG/2 ML VIAL ONE ×2 (07:13→09:26)
[2023-11-19] MEDS ORDERED: LIDOCAINE 2% 2 ML VIAL/AMP(20MG/ML) INFIL ONE (07:13)
[2023-11-19] MEDS ORDERED: NEOSTIGMINE METHYLSULFATE 1 MG/ML 10ML VIAL ONE (07:13)
[2023-11-19] MEDS ORDERED: ATROPINE SULFATE 0.1 MG/ML 10ML SYR IV PRN (07:19)
[2023-11-19] MEDS ORDERED: ONDANSETRON INJ 2 MG/ML 2 ML VIAL IV PRN (07:19)
[2023-11-19] MEDS ORDERED: ePHEDrine sulfate 50 MG/ML AMP IV PRN (07:19)
[2023-11-19] MEDS ORDERED: HYDROmorphone INJ 2 MG/ML SYR/VIAL IV PRN (07:19)
[2023-11-19] MEDS: TRANEXAMIC ACID / 0.7% NACL 1,000 MG/100 ML BAG IV SCH ×2 (07:22→08:52)
--- NOTE | 2023-11-19 07:29 | Orthopedic Progress Note ---
Date of Service November 19, 2023 Assessment & Plan (1) Closed fracture of right hip: Plan: Proceed to OR for right total hip today Will re-admit to internal medicine after surgery. (2) Anticoagulant long-term use: Admission and Anticipated Discharge Date Admission Date: November 18, 2023 Subjective Patient seen and examined. She had a lot of pain in her right hip overnight. Otherwise no changes to her symptoms. Physical Exam Physical Exam: R hip skin remains intact. Distally NVI. Results & Data Vital Signs (Past 12 Hours) Vital Signs Temp Pulse Pulse Resp BP Pulse Ox O2 Del Method 11/19/23 04:33 Nasal Cannula 11/19/23 03:08 37.0 C 63 18 108/59 L 96 Nasal Cannula 11/19/23 01:58 73 11/18/23 23:55 36.7 C 74 18 96/58 L 98 Nasal Cannula 11/18/23 20:02 36.8 C 72 18 117/67 95 Nasal Cannula O2 Flow Rate 11/19/23 04:33 2 11/19/23 03:08 2 11/19/23 01:58 11/18/23 23:55 2 11/18/23 20:02 2 (1) Closed fracture of right hip Encounter type: initial encounter Qualified Code(s): S72.001A - Fracture of unspecified part of neck of right femur, initial encounter for closed fracture
[2023-11-19] MEDS: ceFAZolin 2000MG 2,000 MG/15 ML SYR IV SCH ×2 (08:25→15:19)
[2023-11-19] MEDS: ORTHO JOINT ANESTHETIC ONE (08:27)
[2023-11-19] MEDS ORDERED: SUGAMMADEX SODIUM 200 MG/2 ML VIAL IV ONE (08:40)
[2023-11-19] MEDS: ROPIVACAINE 0.5% HCL/PF 246 MG, Ketorolac (*for OR use only*) 30 MG, EPINEPHrine 30MG/3... INFIL SCH ×2 (09:07→12:57)
--- NOTE | 2023-11-19 09:43 | Operative Report ---
Post Operative Report Pre & Post Diagnosis Operation Date: 11/19/23 07:30 Pre-Op Diagnosis: Closed, displaced right femoral neck fracture Post-Op Diagnosis: Closed, displaced right femoral neck fracture I identified the patient and participated in the time-out.: Yes Procedure Operation Date: 11/19/23 07:30 Actual Procedures p Right Total Hip Arthroplasty (Right) - Olman Zheng MD Surgeon Olman Zheng MD Curtain Feller Blindstitch Kalie Guzman PA-C. No resident or fellow was available to assist. Estimated Blood Loss 150 Findings Consistent with Post-Op Diagnosis Specimens Right femoral head Anesthesia Type General Complications none Disposition Disposition: Recovery Room Indications 73-year-old female, smoker, on Eliquis for history of stroke, fell at her home yesterday morning. Immediate onset of right hip pain. Presented to the emergency room yesterday. X-rays and a CT scan were done demonstrating a right femoral neck fracture with displacement and angulation in both the AP and lateral planes. I had a long discussion with her about the diagnosis and treatment options. She was a candidate for a total hip arthroplasty in order to allow her to regain the ability to ambulate. After reviewing all the risks and benefits of surgery, alternatives to surgery, and expected outcomes she elected to proceed. All questions were answered. Informed consent was signed. Description of Procedure Patient was identified in the preoperative holding area where the surgical site, right hip, was marked. A spinal anesthetic was placed, then the patient was brought back to the main operating room, placed in the operating table and moved into the lateral decubitus position. Axillary roll was placed. All bony prominences were padded. Perioperative antibiotics and tranexamic acid 1 gram IV were administered. The operative extremity was prepped and draped in the normal sterile fashion. Prior to incision a multidisciplinary timeout was called. All in the room were in agreement. We began by making an incision for a posterior approach to the hip. We dissected down through subcutaneous tissues to the level of the fascia. The fascia was incised in line with the incision. Charnley bow was placed. Fatty tissue was reflected posteriorly off the back of the greater trochanter to expose the piriformis and short external rotators of the hip. Quadratus femor is was taken off the femur subperiosteally. The piriformis and short external rotators were dissected off the posterior aspect of the hip. A box cut was made in the capsule. Inferior hip capsule was released off the femur. The femoral head was dislocated. The femoral neck cut was made at our preoperative template. The acetabulum was then exposed. The labrum was sharply excised. Contents of the cotyloid fossa were removed with electrocautery. We then began reaming at a size 8 mm less than our preoperative template. We reamed up by 1 [address] the way up to a size 50 mm cup. This gave us good bleeding cancellus bone circumferentially. The acetabulum was then irrigated out and dried. The real Paulding Gription cup was then impacted down into position with 45 degrees of lateral opening and 25 degrees of anteversion. 2 cancellous bone screws were placed up into the ilium. Excellent fixation was obtained. [place] hole eliminator was placed. The metal liner for a dual mobility acetabulum was then impacted. We checked to ensure the Dewitt taper had engaged which it had. Next we turned our attention to the femur. The lateral neck was removed with a box osteotome. Intramedullary guide was used to establish the intramedullary canal. We then broached all the way up to a size 6. We began trialing with a standard offset neck and a +4 dual mobility head. Hip was reduced. Leg lengths were symmetric. The hip was stable in extension and external rotation, and stable in the sleeper position. At 90 degrees of hip flexion the hip could be internally rotated 80 degrees without levering out of the cup. I was very happy with the stability exam. Therefore the hip was dislocated and the femoral trial was removed. The femoral canal was irrigated and dried. The real size 6 standard offset Actis femoral stem was opened up. This was impacted down into position. The 43 mm outer diameter polyethylene head with an inner 22+4 metal inner femoral head was opened up and assembled on the back table. The bipolar head was then gently impacted down onto the trunnion. The hip was atraumatically reduced. Another 1 gram of IV tranexamic acid was started prior to closure. The wound was irrigated out with sterile Betadine solution. The periarticular injection cocktail was then placed. The short external rotators, piriformis, and posterior capsule were repaired through drill holes in the greater trochanter using #2 Vicryl. The fascia was run with a looped #1 PDS. The subcutaneous layer was closed with #1 PDS. The dermal layer was closed with 2-0 Vicryl. Zip line was used for the skin followed by a Silverlon dressing. A compressive dressing was then placed. The patient was then rolled supine. Leg lengths were rechecked and were symmetric. An abduction pillow was placed. Sedation was lifted and the patient was transferred to the recovery room in stable condition. Summary of implants: Depuy Paulding Gription Acetabular Shell Sector Cup, 50 mm outer diameter [place] Cancellous bone screw, 6.5 x 35 mm, and 6.5 x 25 mm [place] hole eliminator Paulding 50/43 dual mobility liner DePuy Actis collared cementless Femoral stem, 12/14 taper, size 6 standard offset 43/22 bimentum Altrex polyethylene outer head, and articular these 12/14 taper 22 mm diameter +4 inner metal head Postoperative course: Patient will be readmitted to the hospital from the recovery room. Patient will be weightbearing as tolerated with posterior hip precautions. Aspirin for DVT prophylaxis I attest to the content of the Intraoperative Record and any orders documented therein. Any exceptions are noted below.
--- NOTE | 2023-11-19 09:51 | Operative Report ---
Post Operative Report Pre & Post Diagnosis Operation Date: 11/19/23 07:30 Pre-Op Diagnosis: Closed fracture of right hip Post-Op Diagnosis: Closed fracture of right hip I identified the patient and participated in the time-out.: Yes Procedure Operation Date: 11/19/23 07:30 Actual Procedures p Right Total Hip Arthroplasty (Right) - Olman Zheng MD Surgeon Dr Zheng Harvesting Supervisor Kalie Guzman PA-C. No resident or fellow was available to assist. Estimated Blood Loss 150 Findings Consistent with Post-Op Diagnosis Specimens none Description of Procedure Pt was taken to operating room and properly positioned for procedure. Refer to anesthesia's note for anesthesia used. Pt was given pre-op antibiotics. Prepped and draped in sterile fashion. I was present during the entire case and assisted with positioning, instrumentation, closure and dressings. Please see surgeon's op report for further detail. Pt was awake and transferred to PACU in stable condition I attest to the content of the Intraoperative Record and any orders documented therein. Any exceptions are noted below.
[2023-11-19] MEDS: fentaNYL citrate PF 100 MCG/2 ML VIAL IV PRN (10:00)
[2023-11-19] MEDS: ONDANSETRON INJ 2 MG/ML 2 ML VIAL IV PRN (10:05)
[2023-11-19] MEDS ORDERED: METOCLOPRAMIDE HCL INJ 5 MG/ML 2 ML VIAL IV PRN (10:30)
[2023-11-19] MEDS ORDERED: NALOXONE HCL 0.4 MG/1 ML VIAL/CARP IV PRN (10:30)
--- NOTE | 2023-11-19 10:40 | XRay Report ---
XR hip 1V RT w pelvis CLINICAL HISTORY: IN PACU - Post Surgical TECHNIQUE: 1 view of the right hip and single frontal view of the pelvis were obtained. Comparison: Comparison is made to hip radiograph 11/18/2023 FINDINGS: Patient is status post total hip arthroplasty with expected postsurgical changes including soft tissu e swelling and subcutaneous emphysema. IMPRESSION: Expected postoperative appearance status post placement of total hip arthroplasty. ACT 112: Negative or not required by law. Electronically signed by: Car Castellon M.D. 11/19/2023 10:39 AM
--- NOTE | 2023-11-19 11:10 | Anesthesiology Progress Note ---
Date of Service November 19, 2023 Anesthesia Post Procedure Vital Signs Vital Signs: Temp Pulse Pulse Pulse Resp BP BP 11/19/23 10:30 36.8 C 91 H 18 118/66 11/19/23 10:15 82 12 144/69 H 11/19/23 10:05 81 18 150/71 H 11/19/23 09:55 82 12 140/66 11/19/23 09:46 37.5 C 75 12 124/71 11/19/23 04:33 11/19/23 03:08 37.0 C 63 18 108/59 L 11/19/23 01:58 73 11/18/23 23:55 36.7 C 74 18 96/58 L 11/18/23 20:02 36.8 C 72 18 117/67 11/18/23 17:40 65 11/18/23 17:00 11/18/23 17:00 37.0 C 92 H 18 128/70 11/18/23 15:50 11/18/23 15:50 37.7 C H 72 21 152/75 H 11/18/23 15:18 71 27 H 11/18/23 15:18 152/75 H 11/18/23 15:00 86 15 11/18/23 14:30 63 19 134/60 11/18/23 14:01 66 18 149/54 H 11/18/23 13:30 69 15 126/68 11/18/23 13:00 69 23 119/88 11/18/23 12:30 68 15 127/60 11/18/23 12:08 63 11/18/23 12:06 67 18 133/63 Pulse Ox O2 Del Method O2 Flow Rate 11/19/23 10:30 91 Oxymask 3 11/19/23 10:15 93 Oxymask 4 11/19/23 10:05 94 Oxymask 4 11/19/23 09:55 93 Oxymask 4 11/19/23 09:46 95 Oxymask 6 11/19/23 04:33 Nasal Cannula 2 11/19/23 03:08 96 Nasal Cannula 2 11/19/23 01:58 11/18/23 23:55 98 Nasal Cannula 2 11/18/23 20:02 95 Nasal Cannula 2 11/18/23 17:40 11/18/23 17:00 Nasal Cannula 2 11/18/23 17:00 92 Nasal Cannula 2 11/18/23 15:50 Nasal Cannula 2 11/18/23 15:50 97 Nasal Cannula 2 11/18/23 15:18 11/18/23 15:18 11/18/23 15:00 11/18/23 14:30 99 Nasal Cannula 2 11/18/23 14:01 99 Nasal Cannula 2 11/18/23 13:30 11/18/23 13:00 11/18/23 12:30 97 Nasal Cannula 2 11/18/23 12:08 11/18/23 12:06 97 Nasal Cannula 2 Pain Intensity Right Hip: Pain Intensity: 4 Transfer of Care Handoff Completed per policy Notes Mental Status: alert / awake / arousable and participated in evaluation Patient Amnestic to Procedure: Yes Nausea / Vomiting: adequately controlled Pain: adequately controlled Airway Patency, RR, SpO2: stable & adequate BP & HR: stable & adequate Hydration State: stable & adequate Anesthetic Complications: no major complications apparent and Pt Satisfied with anesthetic care
[2023-11-19] MEDS: fentaNYL citrate PF 100 MCG/2 ML VIAL ONE (11:51)
[2023-11-19] MEDS: ONDANSETRON INJ 2 MG/ML 2 ML VIAL ONE (11:52)
[2023-11-19] MEDS: SODIUM CHLORIDE 0.9% 1,000 ML IV SCH (12:18)
[2023-11-19] MEDS: ATORVASTATIN 40 MG TAB PO SCH (12:23)
[2023-11-19] MEDS: CALCIUM CARBONATE 1250MG TAB PO SCH (12:24)
[2023-11-19] MEDS: POLYETHYLENE (MIRALAX) 17 GM PACK PO SCH (12:35)
[2023-11-19 13:03] LABS: Hematocrit (blood only) 40.3 % (37.0-47.0); Hemoglobin 12.5 g/dl (12.0-16.0); Mean Corpuscular Hemoglobin 29.3 pg (25.0-34.0); Mean Corpuscular Volume 94.4 fL (80.0-100.0); Mean Platelet Volume 8.9 fL (9.4-12.4); Platelet Count 222 K/uL (130-400); RDW Coefficient of Variation 13.6 % (11.5-14.5); RDW Standard Deviation 46.8 fL (36.4-46.3); Red Blood Count 4.27 M/uL (4.20-5.40); White Blood Count 13.38 K/ul (4.8-10.8)
[2023-11-19 13:13] LABS: BUN Creatinine Ratio 26.2 (10-20); Calcium 8.4 mg/dl (8.6-10.3); Creatinine Clr Calc Pharmacy 81.3 ml/min; Est GFR (African American) 102.8 ml/min; Est GFR (Non-African American) 88.7 ml/min; Magnesium 1.8 mg/dl (1.7-2.4); Potassium 4.4 mmol/L (3.5-5.1)
--- NOTE | 2023-11-19 14:17 | Hospitalist Progress Note ---
Date of Service November 19, 2023 Assessment & Plan (1) Closed fracture of right hip: (2) Fall: (3) COPD (chronic obstructive pulmonary disease): (4) History of pulmonary embolism: Plan Per admitting service note addendum: 73-year-old female who presented to ED with mechanical fall sustaining right hip fracture Mechanical fall with right hip [id number] and CT reviewed. Spoke with orthopedics. Plan for OR tomorrow. Last dose of Eliquis was yesterday evening. - Per RCRI, score of 1 (h/o prior TIA) with 6% risk of MACE. METS>4 and functionally independent at baseline. She is currently optimized to proceed to OR tomorrow. -Continue pain management, bowel regimen, bedrest. Hold all anticoagulation. N.p.o. from midnight. PT OT eval after surgery. 11/18 Status post right total hip arthroplasty Stable overall after surgery Monitor closely Resume Eliquis once hemostasis achieved per surgery Wound rt leg due to cat scratch yesterday- wound does not look overtly infected. Will start empiric Unasyn for now. Local wound care. 11/18 Continue Unasyn Paroxysmal atrial fibrillation-currently in sinus rhythm. Continue Toprol, Eliquis on hold secondary to surgery COPD-symptoms controlled. Not in exacerbation. Continue home inhalers. Nebs as needed. Encourage use of incentive spirometry. Anxiety-on BuSpar. Patient reports using hydroxyzine anymore History of TIA-on aspirin, statin DVT prophylaxis-hold anticoagulation for surgery tomorrow. Last dose of Eliquis was yesterday evening. Resume after surgery when okay with surgical team. Disposition-pending, PT and OT evaluation CODE STATUS-full code Admission and Anticipated Discharge Date Admission Date: November 18, 2023 Subjective Follow-up for right hip fracture, etc. Status post right total hip arthroplasty this morning Seen resting in bed, comfortable, not in distress In good spirits States she feels fine overall no chest pain, dyspnea, palpitations, dizziness No abdominal pain, nausea or vomiting Minimal discomfort over the surgical site No other new symptoms Review of Systems Review of Systems: all noted and negative except for above Physical Exam Physical Exam: General- oriented x 3, not in distress, speaks in sentences with no effort or accessory muscle use Eyes- anicteric Neck- no JVD Lungs- clear breath sounds bilaterally, no rales/wheezes Heart- normal rate, regular rhythm; no murmurs Abdomen- normal bowel sounds, nondistended, soft, nontender Extremities- no pretibial edema, no calf tenderness Right hip: Surgical dressing in place, no bleeding or discharge Neuro- alert, oriented x 3; no gross focal neurologic deficits Skin- warm & dry Results & Data Results & Data Vital Signs (Past 12 Hours) Vital Signs Temp Pulse Pulse Pulse Resp BP BP 11/19/23 13:00 36.6 C 74 16 118/61 11/19/23 11:56 36.6 C 76 16 136/72 11/19/23 11:33 36.2 C L 71 15 120/57 L 11/19/23 10:55 36.8 C 75 18 115/54 L 11/19/23 10:30 63 11/19/23 10:30 36.8 C 91 H 18 118/66 11/19/23 10:15 82 12 144/69 H 11/19/23 10:05 81 18 150/71 H 11/19/23 09:55 82 12 140/66 11/19/23 09:46 37.5 C 75 12 124/71 11/19/23 04:33 11/19/23 03:08 37.0 C 63 18 108/59 L Pulse Ox O2 Del Method O2 Flow Rate 11/19/23 13:00 96 Nasal Cannula 3 11/19/23 11:56 97 Oxymask 3 11/19/23 11:33 94 Oxymask 3 11/19/23 10:55 93 Oxymask 3 11/19/23 10:30 11/19/23 10:30 91 Oxymask 3 11/19/23 10:15 93 Oxymask 4 11/19/23 10:05 94 Oxymask 4 11/19/23 09:55 93 Oxymask 4 11/19/23 09:46 95 Oxymask 6 11/19/23 04:33 Nasal Cannula 2 11/19/23 03:08 96 Nasal Cannula 2 all noted and reviewed including below (1) Closed fracture of right hip Encounter type: initial encounter Qualified Code(s): S72.001A - Fracture of unspecified part of neck of right femur, initial encounter for closed fracture (2) Fall Encounter type: initial encounter Qualified Code(s): W19.XXXA - Unspecified fall, initial encounter
[2023-11-19] MEDS: ASPIRIN 81 MG ECTAB PO SCH (15:18)
[2023-11-19] MEDS: oxyCODONE HCL IR 5 MG TAB (IMMEDIATE RELEASE) PO PRN (15:18)
[2023-11-19 17:09] LABS: Appearance Urine Clear (Clear); Bilirubin Urine Negative (Negative); Blood Urine Negative (Negative); Color Urine Yellow; Glucose Urine UA Negative (Negative); Ketones Urine Negative (Negative); Leukocyte Esterase Urine Negative (Negative); Nitrite Urine Negative (Negative); Protein Urine Negative (Negative); Specific Gravity Urine 1.022 (1.000-1.030); Urobilinogen Urine Negative (Negative)
[2023-11-20] MEDS: MELATONIN 3 MG TAB PO PRN (04:41)
[2023-11-20] MEDS: OLANZapine 10 MG/2.1 ML SDV IM PRN (04:41)
[2023-11-20 07:34] LABS: Basophils # (auto) 0.01 K/uL (0.00-0.20); Basophils % (auto) 0.1 %; Eosinophils # (auto) 0.01 K/uL (0.00-0.50); Eosinophils % (auto) 0.1 %; Hematocrit (blood only) 34.4 % (37.0-47.0); Hemoglobin 10.9 g/dl (12.0-16.0); Immature Granulocytes # (auto) 0.05 K/uL (0.01-0.20); Immature Granulocytes % (auto) 0.4 %; Mean Corpuscular Hemoglobin 29.8 pg (25.0-34.0); Mean Corpuscular Hgb Conc 31.7 g/dL (32.0-36.0); Mean Platelet Volume 9.2 fL (9.4-12.4); Monocytes # (auto) 1.08 K/uL (0.11-0.59); Monocytes % (auto) 8.6 %; Neutrophils % (auto) 78.8 %; Platelet Count 195 K/uL (130-400); RDW Coefficient of Variation 13.5 % (11.5-14.5); RDW Standard Deviation 46.7 fL (36.4-46.3); Red Blood Count 3.66 M/uL (4.20-5.40); White Blood Count 12.55 K/ul (4.8-10.8)
[2023-11-20 07:51] LABS: BUN Creatinine Ratio 20.9 (10-20); Calcium 8.5 mg/dl (8.6-10.3); Creatinine Clr Calc Pharmacy 75.4 ml/min; Est GFR (African American) 99.7 ml/min; Potassium 4.5 mmol/L (3.5-5.1)
--- NOTE | 2023-11-20 08:21 | CT Scan Report ---
CT head/brain wo con CLINICAL HISTORY: confusion, on Eliquis Technique: Contiguous axial CT images of the head were acquired from the base of the skull to the sondra pamela without intravenous contrast administration. Images were viewed in brain, subdural and bone windo ws. Automated dose lowering techniques and/or adjustment according to patient size were utilized for this exam. Comparison: Comparison is made to chest radiograph 11/18/2023 Findings: The ventricles, basal cisterns, and cerebral sulci are normal. There is no acute intracranial hemorrh age or evidence of acute territorial infarction. Neither mass effect, shift of the midline structures , nor abnormal extra-axial fluid collections are shown. Imaged portions of the paranasal sinuses and mastoid air cells are clear. The orbits appear normal. There are no acute fractures of the calvaria or scalp swelling. Impression: No acute intracranial hemorrhage, no evidence of acute territorial infarction or other acute intracra nial disease process. ACT 112: Negative or not required by law. Electronically signed by: Car Castellon M.D. 11/20/2023 8:20 AM
[2023-11-20] MEDS: SODIUM CHLORIDE 0.9% 1,000 ML IV SCH (08:33)
[2023-11-20] MEDS: MULTIVITAMIN TAB PO SCH (08:35)
--- NOTE | 2023-11-20 08:57 | Orthopedic Progress Note ---
Date of Service November 20, 2023 Assessment & Plan (1) S/P total right hip arthroplasty: Plan: POD1 s/p right total hip arthroplasty 11/[address] Zheng Confused this morning - family notes history of this with patient's past surgeries from anesthesia. CT of head was negative. Continue to monitor. Limit narcotic use WBAT with walker PT/OT Abduction pillow while in bed Posterior hip precautions for 3 months (no flexion past 90 degrees, no crossing midline, no internal rotation) Frequently ice DVT prophylaxis: resume eliquis 2.5mg BID , TEDS x 2 weeks, SCDs while in hospital Pain control: Tylenol 1000mg q 8hrs, oxycodone 5-10mg q4-6 hrs for moderate pain, Dilaudid 0.5mg IV for severe/breakthrough pain. Try to limit narcotic use in setting of confusion Dressing: keep dressing on and in tact Case management for discharge needs - family would like rehab, referral placed to [facility] and [facility] Follow up as scheduled with [facility] in 2 weeks for zip line removal Admission and Anticipated Discharge Date Admission Date: November 18, 2023 Subjective Pt was seen and examined bedside. POD #1 s/p R KVNG with Dr Zheng. Pt was transferred last night back to medicine service. No major events over night. This morning nurse reports patient has been trying to get out of bed on her own and having trouble keeping abduction pillow on. She is confused and does not remember the surgery or seeing me in the ED prior to surgery. She knows who she is but thinks that she is at the high school. Family noted that she has had confusion post surgery from anesthesia in the past. Vitals are stable. Labs unremarkable. X-rays show normal post operative changed. Pt reports they are doing well and pain is controlled. They are tolerating PO intake and voiding adequate amounts. She has not had BM. Patient has not yet seen PT/OT this morning. Pt denies F/C, N/V/D, SOB, CP. Review of Systems Review of Systems: Per HPI Physical Exam Physical Exam: General: Pt laying in hospital bed AA&O to person, not to time or place, in NAD, calm and cooperative during exam Lower Extremity: Dressing in tact and not saturated. Left in place today. Abduction pillow in place. Pt has full ROM of ankle and all 5 digits. She can tolerate some light ROM of hip with abduction and adduction, some slight flexion. She can extend and slightly bend her knee. Pt strength in tact with resisted DF/PF. Calf supple and non tender. NVI with sensation to light touch distally and good distal pulses present. Results & Data Vital Signs (Past 12 Hours) Vital Signs Temp Pulse Pulse Resp BP Pulse Ox O2 Del Method 11/20/23 07:36 83 11/20/23 06:55 36.8 C 78 17 105/52 L 92 Room Air 11/20/23 02:55 36.8 C 78 20 126/64 92 Nasal Cannula 11/19/23 23:37 36 C L 72 20 113/61 97 Nasal Cannula 11/19/23 23:12 72 11/19/23 22:20 Nasal Cannula O2 Flow Rate 11/20/23 07:36 11/20/23 06:55 11/20/23 02:55 2 11/19/23 23:37 2 11/19/23 23:12 11/19/23 22:20 3 Laboratory Results 11/20/23 11/19/23 11/19/23 Range/Units 06:48 17:00 12:39 WBC 12.55 H 13.38 H (4.8-10.8) K/ul RBC 3.66 L 4.27 (4.20-5.40) M/uL Hgb 10.9 L 12.5 (12.0-16.0) g/dl Hct 34.4 L 40.3 (37.0-47.0) % MCV 94.0 94.4 (80.0-100.0) fL MCH 29.8 29.3 (25.0-34.0) pg MCHC 31.7 L 31.0 L (32.0-36.0) g/dL RDW Std Deviation 46.7 H 46.8 H (36.4-46.3) fL RDW Coeff of Real 13.5 13.6 (11.5-14.5) % Plt Count 195 222 (130-400) K/uL MPV 9.2 L 8.9 L (9.4-12.4) fL Immature Gran % (Auto) 0.4 % Neut % (Auto) 78.8 % Lymph % (Auto) 12.0 % [place] % (Auto) 8.6 % Eos % (Auto) 0.1 % Baso % (Auto) 0.1 % Neut # (Auto) 9.90 H (1.40-6.50) K/uL Lymph # (Auto) 1.50 (1.20-3.40) K/uL [place] # (Auto) 1.08 H (0.11-0.59) K/uL Eos # (Auto) 0.01 (0.00-0.50) K/uL Baso # (Auto) 0.01 (0.00-0.20) K/uL Immature Gran # (Auto) 0.05 (0.01-0.20) K/uL Sodium 137 136 (136-145) mmol/L Potassium 4.5 4.4 (3.5-5.1) mmol/L Chloride 106 105 (98-107) mmol/L Carbon Dioxide 28 28 (21-32) mmol/L Anion Gap 3 3 (3-11) BUN 14 16 (6-23) mg/dl Creatinine 0.67 0.61 (0.6-1.2) mg/dl Est Cr Clr Drug Dosing 75.4 81.3 ml/min Est GFR ( Amer) 99.7 102.8 ml/min Est GFR (Non-Af Amer) 86.0 88.7 ml/min BUN/Creatinine Ratio 20.9 H 26.2 H (10-20) Glucose 106 H 122 H (70-99(Fasting)) mg/dl Calcium 8.5 L 8.4 L (8.6-10.3) mg/dl Magnesium 1.8 (1.7-2.4) mg/dl Urine Color Yellow Urine Appearance Clear (Clear) Urine pH 6.0 (4.5-7.5) Ur Specific [place] 1.022 (1.000-1.030) Urine Protein Negative (Negative) Urine Glucose (UA) Negative (Negative) Urine Ketones Negative (Negative) Urine Blood Negative (Negative) Urine Nitrite Negative (Negative) Urine Bilirubin Negative (Negative) Urine Urobilinogen Negative (Negative) Ur Leukocyte Esterase Negative (Negative) Diagnostic Findings Head CT 11/20/23 07:31 CT head/brain wo con CLINICAL HISTORY: confusion, on Eliquis Technique: Contiguous axial CT images of the head were acquired from the base of the skull to the vertex without intravenous contrast administration. Images were viewed in brain, subdural and bone windows. Automated dose lowering techniques and/or adjustment according to patient size were utilized for this exam. Comparison: Comparison is made to chest radiograph 11/18/2023 Findings: The ventricles, basal cisterns, and cerebral sulci are normal. There is no acute intracranial hemorrhage or evidence of acute territorial infarction. Neither mass effect, shift of the midline structures, nor abnormal extra-axial fluid collections are shown. Imaged portions of the paranasal sinuses and mastoid air cells are clear. The orbits appear normal. There are no acute fractures of the calvaria or scalp swelling. Impression: No acute intracranial hemorrhage, no evidence of acute territorial infarction or other acute intracranial disease process. ACT 112: Negative or not required by law. Electronically signed by: Car Castellon M.D. 11/20/2023 8:20 AM
[2023-11-20] MEDS ORDERED: APIXABAN 2.5 MG TAB PO SCH (09:00)
[2023-11-20] MEDS: SODIUM CHLORIDE 0.9% 500 ML IV ONE (11:45)
[2023-11-20 12:03] LABS: Appearance Urine Clear (Clear); Bilirubin Urine Negative (Negative); Blood Urine Negative (Negative); Color Urine Yellow; Glucose Urine UA Negative (Negative); Ketones Urine Negative (Negative); Leukocyte Esterase Urine Negative (Negative); Nitrite Urine Negative (Negative); Protein Urine Negative (Negative); Specific Gravity Urine 1.017 (1.000-1.030); Urobilinogen Urine Negative (Negative)
[2023-11-20] MEDS: cefTRIAXone SODIUM 2,000 MG in DEXTROSE 5 % MINI-B 50 ML IV SCH (12:44)
--- NOTE | 2023-11-20 15:05 | Hospitalist Progress Note ---
Date of Service November 20, 2023 Assessment & Plan (1) Closed fracture of right hip: (2) Fall: (3) COPD (chronic obstructive pulmonary disease): (4) History of pulmonary embolism: Plan Per admitting service note addendum: 73-year-old female who presented to ED with mechanical fall sustaining right hip fracture Mechanical fall with right hip [id number] and CT reviewed. Spoke with orthopedics. Plan for OR tomorrow. Last dose of Eliquis was yesterday evening. - Per RCRI, score of 1 (h/o prior TIA) with 6% risk of MACE. METS>4 and functionally independent at baseline. She is currently optimized to proceed to OR tomorrow. -Continue pain management, bowel regimen, bedrest. Hold all anticoagulation. N.p.o. from midnight. PT OT eval after surgery. 11/18 Status post right total hip arthroplasty Stable overall after surgery Monitor closely Resume Eliquis once hemostasis achieved per surgery 11/19 Positive delirium likely secondary to recent surgery, anesthesia, narcotics, in the setting of Cymbalta and buspirone use CT head: No acute process Hold oxycodone and Dilaudid Scheduled Tylenol every 6 hours for pain control Monitor closely Resume Eliquis once okay with orthopedic surgery service Delirium Management per above Check urinalysis Empiric ceftriaxone IV Wound rt leg due to cat scratch yesterday- wound does not look overtly infected. 11/19 Transition from Unasyn to azithromycin for prevention of cat scratch disease Paroxysmal atrial fibrillation-currently in sinus rhythm. Continue Toprol, Eliquis on hold secondary to surgery COPD-symptoms controlled. Not in exacerbation. Continue home inhalers. Nebs as needed. Encourage use of incentive spirometry. Anxiety-on BuSpar-hold for now in light of delirium. Patient reports using hydroxyzine anymore History of TIA-on aspirin, statin DVT prophylaxis-hold anticoagulation for surgery tomorrow. Last dose of Eliquis was yesterday evening. Resume after surgery when okay with surgical team. Disposition-pending, PT and OT evaluation CODE STATUS-full code Admission and Anticipated Discharge Date Admission Date: November 18, 2023 Subjective Follow-up for right femoral fracture, status post surgery, etc. Seen resting in bed, confused, one-to-one sitter at the bedside Awake and alert, not oriented Tries to answer questions Not in distress Denies headache, dizziness, chest pain, shortness of breath, abdominal pain, nausea or vomiting No other new symptom Review of Systems Review of Systems: all noted and negative except for above Physical Exam Physical Exam: General- oriented x 0, not in distress, speaks in sentences with no effort or accessory muscle use Eyes- anicteric Neck- no JVD Lungs- clear breath sounds bilaterally, no rales/wheezes Heart- normal rate, regular rhythm; no murmurs Abdomen- normal bowel sounds, nondistended, soft, nontender Extremities- no pretibial edema, no calf tenderness Right hip: Dressing in place, no bleeding or discharge, minimal edema, no hematoma Right lower leg, lateral aspect: Mild excoriations noted, no bleeding, drying up, healing well No surrounding erythema/warmth/tenderness No fluctuant mass Neuro- alert, oriented x 0; no gross focal neurologic deficits Skin- warm & dry Results & Data Results & Data Vital Signs (Past 12 Hours) Vital Signs Temp Pulse Pulse Resp BP Pulse Ox O2 Del Method 11/20/23 12:28 108/67 11/20/23 10:44 36.9 C 76 16 90/52 L 97 Room Air 11/20/23 08:45 Nasal Cannula 11/20/23 07:36 83 11/20/23 06:55 36.8 C 78 17 105/52 L 92 Room Air O2 Flow Rate 11/20/23 12:28 11/20/23 10:44 11/20/23 08:45 3 11/20/23 07:36 11/20/23 06:55 all noted and reviewed including below (1) Closed fracture of right hip Encounter type: initial encounter Qualified Code(s): S72.001A - Fracture of unspecified part of neck of right femur, initial encounter for closed fracture (2) Fall Encounter type: initial encounter Qualified Code(s): W19.XXXA - Unspecified fall, initial encounter
[2023-11-20] MEDS: AZITHROMYCIN 250 MG TAB PO ONE (16:04)
[2023-11-20] MEDS: NICOTINE 7 MG/24 HR TDSY TD SCH (18:33)
[2023-11-20] MEDS: fentaNYL citrate PF 100 MCG/2 ML VIAL ONE (19:01)
[2023-11-21] MEDS: AZITHROMYCIN 250 MG TAB PO SCH (08:59)
[2023-11-21] MEDS: ADVANCED PROBIOTIC 625 MG CAPSULE PO SCH (08:59)
--- NOTE | 2023-11-21 11:41 | Hospitalist Progress Note ---
Date of Service November 21, 2023 Assessment & Plan (1) Closed fracture of right hip: (2) Fall: (3) COPD (chronic obstructive pulmonary disease): (4) History of pulmonary embolism: Plan Per admitting service note addendum: 73-year-old female who presented to ED with mechanical fall sustaining right hip fracture Mechanical fall with right hip fracture Status post right total hip arthroplasty/03/06 11/18 Status post right total hip arthroplasty Stable overall after surgery except for delirium likely secondary to recent surgery, anesthesia, narcotics, in the setting of Cymbalta and buspirone use CT head: No acute process Oxycodone and Dilaudid discontinued Discussed with patient's son Arsalan at the bedside, confirmed that patient had confusion after taking oxycodone after surgery in the past, did okay with hydrocodone For now, continue Tylenol 4 times daily, and as needed Toradol If confusion is better, trial of hydrocodone as needed starting tomorrow Patient's son also reports that she also developed similar confusion with UTI in the past Urinalysis: No signs of UTI but patient has already been on antibiotics prior to collection Continue empiric ceftriaxone IV day #2 Start Lovenox subcu for DVT prophylaxis today Resume usual Eliquis for paroxysmal A-fib once hemostasis achieved per surgery PT OT evaluation in progress Will likely need to transition to acute rehab when medically stable, patient and son agreeable Delirium, multifactorial Management per above Wound rt leg due to cat scratch 11/20 Healing well Continue azithromycin day #2 Paroxysmal atrial fibrillation-currently in sinus rhythm. Continue Toprol, Eliquis on hold secondary to surgery, resume once okay with surgery COPD-symptoms controlled. Not in exacerbation. Continue home inhalers. Nebs as needed. Encourage use of incentive spirometry. Anxiety-on BuSpar, Cymbalta-hold for now in light of delirium. Resume tomorrow once mental status has improved. History of TIA-on aspirin, statin DVT prophylaxis-Lovenox for now, transition to usual Eliquis once okay with orthopedic surgery service Disposition-will likely need to transition to acute rehab CODE STATUS-full code Admission and Anticipated Discharge Date Admission Date: November 18, 2023 Subjective ff up for R hip fracture, s/p surgery, etc seen resting in chair, comfortable not in distress states she feels ok overall has intermittent severe pain with R hip, mostly with movement Otherwise denies chest pain, palpitations, dizziness Still gets confused intermittently but answering most questions appropriately today Patient's son Arsalan at the bedside visiting No other new symptoms next Review of Systems Review of Systems: all noted and negative except for above Physical Exam Physical Exam: General- oriented x 1-2, not in distress, speaks in sentences with no effort or accessory muscle use Eyes- anicteric Neck- no JVD Lungs- clear breath sounds bilaterally, no rales/wheezes Heart- normal rate, regular rhythm; no murmurs Abdomen- normal bowel sounds, nondistended, soft, nontender Extremities- no pretibial edema, no calf tenderness Right hip: Dressing in place, no bleeding or discharge, mild edema, no erythema/warmth/tenderness Right lower leg: Excoriations healing well, no signs of infection at this point Neuro- alert, oriented x 1-2; no gross focal neurologic deficits Skin- warm & dry Results & Data Results & Data Vital Signs (Past 12 Hours) Vital Signs Temp Pulse Pulse Resp BP Pulse Ox O2 Del Method 11/21/23 08:12 38.1 C H 92 H 16 145/67 H 95 Room Air 11/21/23 07:35 83 11/21/23 04:00 37.0 C 80 20 129/72 97 Nasal Cannula 11/21/23 00:57 74 11/21/23 00:00 36.6 C 72 18 108/68 100 Nasal Cannula O2 Flow Rate 11/21/23 08:12 11/21/23 07:35 11/21/23 04:00 3 11/21/23 00:57 11/21/23 00:00 3 all noted and reviewed including below (1) Closed fracture of right hip Encounter type: initial encounter Qualified Code(s): S72.001A - Fracture of unspecified part of neck of right femur, initial encounter for closed fracture (2) Fall Encounter type: initial encounter Qualified Code(s): W19.XXXA - Unspecified fall, initial encounter
[2023-11-21] MEDS: KETOROLAC TROMETHAMINE 15 MG/ML VIAL IV PRN (18:12)
[2023-11-21] MEDS: SODIUM CHLORIDE 0.9% 500 ML IV ONE (19:26)
[2023-11-21 21:01] LABS: Basophils # (auto) 0.02 K/uL (0.00-0.20); Basophils % (auto) 0.2 %; Eosinophils # (auto) 0.08 K/uL (0.00-0.50); Eosinophils % (auto) 0.8 %; Hemoglobin 9.4 g/dl (12.0-16.0); Immature Granulocytes # (auto) 0.04 K/uL (0.01-0.20); Immature Granulocytes % (auto) 0.4 %; Lymphocytes # (auto) 1.51 K/uL (1.20-3.40); Mean Corpuscular Hemoglobin 29.6 pg (25.0-34.0); Mean Corpuscular Hgb Conc 32.4 g/dL (32.0-36.0); Mean Corpuscular Volume 91.2 fL (80.0-100.0); Monocytes # (auto) 0.86 K/uL (0.11-0.59); Monocytes % (auto) 8.5 %; Neutrophils # (auto) 7.59 K/uL (1.40-6.50); Neutrophils % (auto) 75.1 %; Platelet Count 177 K/uL (130-400); RDW Coefficient of Variation 13.5 % (11.5-14.5); RDW Standard Deviation 45.7 fL (36.4-46.3); Red Blood Count 3.18 M/uL (4.20-5.40)
[2023-11-21 21:05] LABS: BUN Creatinine Ratio 16.5 (10-20); Calcium 7.6 mg/dl (8.6-10.3); Creatinine Clr Calc Pharmacy 57.7 ml/min; Est GFR (African American) 77.7 ml/min; Potassium 3.7 mmol/L (3.5-5.1)
[2023-11-21] MEDS: SODIUM CHLORIDE 0.9% 1,000 ML IV ONE (23:03)
--- NOTE | 2023-11-22 10:31 | Orthopedic Progress Note ---
Date of Service November 22, 2023 Assessment & Plan (1) S/P total right hip arthroplasty: Plan: POD3 s/p right total hip arthroplasty 11/[address] Zheng Confusion resolved WBAT with walker PT/OT Abduction pillow while in bed Posterior hip precautions for 3 months (no flexion past 90 degrees, no crossing midline, no internal rotation) Frequently ice DVT prophylaxis: resume eliquis 2.5mg BID , TEDS x 2 weeks, SCDs while in hospital Pain control: Tylenol 1000mg q 8hrs, oxycodone 5-10mg q4-6 hrs for moderate pain, Dilaudid 0.5mg IV for severe/breakthrough pain. Try to limit narcotic use due to previous confusion. Dressing: keep silverlon dressing on and in tact Case management for discharge needs - family would like rehab, referral placed to [facility] - authorization pending Follow up as scheduled with [facility] in 2 weeks, as scheduled for zip line removal Admission and Anticipated Discharge Date Admission Date: November 18, 2023 Subjective Doing well, no complaints of pain in right leg. Ambulating with physical therapy. Improving each day. Physical Exam Musculoskeletal: Exam of right leg: Pressure dressing removed from right hip. Silverlon in place and not soiled. No shadowing through the window of the Silverlon. Mild edema to the right leg. No edema into the foot. Calf is supple and nontender. Abrasions on the outer aspect of her calf are healing nicely. Calf is supple and nontender. She is able to independently straight leg raise and extend her right knee. Full range of motion of the right ankle with normal strength. Distal pulses are 1+. Sensation is normal throughout the foot. Results & Data Vital Signs (Past 12 Hours) Vital Signs Temp Pulse Pulse Resp BP BP Pulse Ox 11/22/23 07:49 36.9 C 96 H 16 148/72 H 91 11/22/23 07:21 67 11/22/23 03:33 36.9 C 66 16 108/64 95 11/21/23 23:38 72 11/21/23 23:12 36.8 C 69 20 96/58 L 97 O2 Del Method O2 Flow Rate 11/22/23 07:49 Nasal Cannula 3 11/22/23 07:21 11/22/23 03:33 Nasal Cannula 3 11/21/23 23:38 04/09/24 23:12 Nasal Cannula 3 Laboratory Results 11/21/23 Range/Units 20:31 WBC 10.10 (4.8-10.8) K/ul RBC 3.18 L (4.20-5.40) M/uL Hgb 9.4 L (12.0-16.0) g/dl Hct 29.0 L (37.0-47.0) % MCV 91.2 (80.0-100.0) fL MCH 29.6 (25.0-34.0) pg MCHC 32.4 (32.0-36.0) g/dL RDW Std Deviation 45.7 (36.4-46.3) fL RDW Coeff of Real 13.5 (11.5-14.5) % Plt Count 177 (130-400) K/uL MPV 9.0 L (9.4-12.4) fL Immature Gran % (Auto) 0.4 % Neut % (Auto) 75.1 % Lymph % (Auto) 15.0 % Twiggs % (Auto) 8.5 % Eos % (Auto) 0.8 % Baso % (Auto) 0.2 % Neut # (Auto) 7.59 H (1.40-6.50) K/uL Lymph # (Auto) 1.51 (1.20-3.40) K/uL Twiggs # (Auto) 0.86 H (0.11-0.59) K/uL Eos # (Auto) 0.08 (0.00-0.50) K/uL Baso # (Auto) 0.02 (0.00-0.20) K/uL Immature Gran # (Auto) 0.04 (0.01-0.20) K/uL Sodium 137 (136-145) mmol/L Potassium 3.7 (3.5-5.1) mmol/L Chloride 110 H (98-107) mmol/L Carbon Dioxide 23 (21-32) mmol/L Anion Gap 4 (3-11) BUN 14 (6-23) mg/dl Creatinine 0.85 (0.6-1.2) mg/dl Est Cr Clr Drug Dosing 57.7 ml/min Est GFR ( Amer) 77.7 ml/min Est GFR (Non-Af Amer) 67.0 ml/min BUN/Creatinine Ratio 16.5 (10-20) Glucose 125 H (70-99(Fasting)) mg/dl Lactate 0.8 (0.4-2.0) mmol/L Calcium 7.6 L (8.6-10.3) mg/dl
--- NOTE | 2023-11-22 13:49 | Hospitalist Progress Note ---
Date of Service November 22, 2023 Assessment & Plan (1) Closed fracture of right hip: (2) Fall: (3) COPD (chronic obstructive pulmonary disease): (4) History of pulmonary embolism: Plan 73-year-old female who presented to ED with mechanical fall sustaining right hip fracture Mechanical fall with right hip fracture Status post right total hip arthroplasty 11/19/23 Delirium, resolved Stable overall after surgery except for delirium likely secondary to recent surgery, anesthesia, narcotics, in the setting of Cymbalta and buspirone use CT head: No acute process Oxycodone and Dilaudid discontinued Patient is alert oriented x 3 after discontinuation of narcotics On Tylenol for pain control Will discontinue empiric antibiotic; urine culture and blood cultures are negative. Continue PT OT eval Wound rt leg due to cat scratch Healing well Continue azithromycin day #3 Paroxysmal atrial fibrillation-currently in sinus rhythm. Continue Toprol, Eliquis resumed COPD-symptoms controlled. Not in exacerbation. Continue home inhalers. Nebs as needed. Encourage use of incentive spirometry. Anxiety-on BuSpar, Cymbalta-resumed History of TIA-on aspirin, statin DVT prophylaxis-Eliquis Disposition-will likely need to transition to acute rehab CODE STATUS-full code Please note the above document was generated using voice recognition software. It may contain grammatical, syntax or spelling errors. Any formal questions or concerns about the content, text or information contained within the body of t his dictation should be directly addressed to the provider for clarification Admission and Anticipated Discharge Date Admission Date: November 18, 2023 Subjective Patient seen and examined at bedside. Comfortable; not in distress. Denies fever, chills, chest pain, shortness of breath, abdominal pain or urinary symptoms. No significant overnight events Patient is alert oriented x 3 Review of Systems Review of Systems: All systems reviewed & are unremarkable except as noted in Subjective Physical Exam Physical Exam: Constitutional: WD/WN, vitals as above, NAD, sitting up in bed, pleasant, conversing easily Respiratory: normal respiratory effort, lungs clear to auscultation, no wheeze, rales, rhonchi. Normal insp/exp effort, no accessory muscle use Cardiovascular: RRR, no murmur, no edema Vessels: no JVD or carotid bruit Chest: normal inspection of chest Abdomen: normal bowel sounds, soft, nontender, no hepatosplenomegaly Musculoskeletal: Dressing in place; no soakage. Skin: no rashes, warm and dry normal turgor Neurologic: PERRL, EOMI, accommodation nl, no face palsy, no dysarthria CN's II-XI intact bilaterally and moves all extremities Psychiatric: A+Ox3, euthymic affect Results & Data Results & Data Vital Signs (Past 12 Hours) Vital Signs Temp Pulse Pulse Resp BP Pulse Ox O2 Del Method 11/22/23 11:24 36.5 C 69 16 107/65 93 Room Air 11/22/23 07:49 36.9 C 96 H 16 148/72 H 91 Nasal Cannula 11/22/23 07:21 67 11/22/23 03:33 36.9 C 66 16 108/64 95 Nasal Cannula O2 Flow Rate 11/22/23 11:24 11/22/23 07:49 3 11/22/23 07:21 11/22/23 03:33 3 (1) Closed fracture of right hip Encounter type: initial encounter Qualified Code(s): S72.001A - Fracture of unspecified part of neck of right femur, initial encounter for closed fracture (2) Fall Encounter type: initial encounter Qualified Code(s): W19.XXXA - Unspecified fall, initial encounter
[2023-11-22] MEDS: ACETAMINOPHEN 500 MG TAB PO SCH (14:02)
[2023-11-22] MEDS: KETOROLAC TROMETHAMINE 15 MG/ML VIAL IV ONE (19:28)
[2023-11-22] MEDS: ACETAMINOPHEN 325 MG TAB PO SCH (19:29)
[2023-11-22] MEDS: APIXABAN 2.5 MG TAB PO SCH (19:59)
[2023-11-22] MEDS: CYCLOBENZAPRINE HCL 10 MG TAB PO STA (22:39)
[2023-11-23 05:23] LABS: Basophils # (auto) 0.03 K/uL (0.00-0.20); Basophils % (auto) 0.4 %; Eosinophils # (auto) 0.21 K/uL (0.00-0.50); Eosinophils % (auto) 2.9 %; Hematocrit (blood only) 29.4 % (37.0-47.0); Hemoglobin 9.3 g/dl (12.0-16.0); Immature Granulocytes # (auto) 0.02 K/uL (0.01-0.20); Immature Granulocytes % (auto) 0.3 %; Lymphocytes # (auto) 1.66 K/uL (1.20-3.40); Lymphocytes % (auto) 22.9 %; Mean Corpuscular Hemoglobin 29.3 pg (25.0-34.0); Mean Corpuscular Hgb Conc 31.6 g/dL (32.0-36.0); Mean Corpuscular Volume 92.7 fL (80.0-100.0); Mean Platelet Volume 9.3 fL (9.4-12.4); Monocytes # (auto) 0.58 K/uL (0.11-0.59); Neutrophils # (auto) 4.74 K/uL (1.40-6.50); Neutrophils % (auto) 65.5 %; Platelet Count 216 K/uL (130-400); RDW Coefficient of Variation 13.6 % (11.5-14.5); RDW Standard Deviation 46.9 fL (36.4-46.3); Red Blood Count 3.17 M/uL (4.20-5.40); White Blood Count 7.24 K/ul (4.8-10.8)
[2023-11-23 05:33] LABS: BUN Creatinine Ratio 16.9 (10-20); Creatinine Clr Calc Pharmacy 70.7 ml/min; Est GFR (African American) 96.6 ml/min; Est GFR (Non-African American) 83.3 ml/min; Potassium 3.7 mmol/L (3.5-5.1)
--- NOTE | 2023-11-23 10:30 | Orthopedic Progress Note ---
Date of Service November 23, 2023 Assessment & Plan (1) S/P total right hip arthroplasty: Plan: The patient was educated regarding today's findings. Conservative care measures were discussed. She was encouraged to participate with physical therapy. Continue using her walker. Her Silverlon dressing is in place, and may remain until she is seen in the office in 10 days. Follow-up in the office as scheduled next week. Continue with ice intermittently to the hip as needed for discomfort. She may use Tylenol or tramadol every 6 hours as needed for discomfort. Call the office with any other concerns. Continue Eliquis twice daily for DVT prophylaxis. She is stable for discharge from an orthopedic standpoint. Admission and Anticipated Discharge Date Admission Date: November 18, 2023 Subjective This 73-year-old female is seen today in her room. She is 4 days status post right total hip arthroplasty. Patient states she will be leaving today for [place] [facility]. She is currently working with physical therapy. She states she did not sleep well last evening due to some right hip pain. She also states she had some spasms in her leg. She did take some Tylenol last evening without much improvement. She is requesting that she be given tramadol in the future. No other complaints at this time. Physical Exam Physical Exam: General: Well-developed, well-nourished, elderly female, in no acute distress. Standing at bedside. Alert and oriented. She does require redirection frequently during our conversation. The physical therapist also notes that she had better clarity yesterday and was able to follow directions better yesterday. Skin: Warm and dry with good turgor. No rashes. Postoperative edema present in the right leg. Silverlon dressing is in place. No erythema. No significant ecchymosis surrounding the wound. Musculoskeletal: The patient has no significant discomfort with palpation around the surgical incision. She has supple motion of her right hip. She is able to actively flex her toes, ankle, and knee. She is able to flex her hip as well. Neurologic: Gross sensation is intact across the right leg by soft touch. Results & Data Vital Signs (Past 12 Hours) Vital Signs Temp Pulse Pulse Resp BP BP Pulse Ox 11/23/23 07:42 36.6 C 67 16 127/63 98 11/23/23 05:57 68 11/23/23 03:43 36.6 C 67 18 112/69 94 11/23/23 00:01 36.7 C 76 20 113/62 93 11/22/23 23:31 79 O2 Del Method 11/23/23 07:42 Room Air 11/23/23 05:57 11/23/23 03:43 Room Air 11/23/23 00:01 Room Air 11/22/23 23:31 Laboratory Results CBC obtained this morning shows a white count of 7.24. H&H are 9.3 and 29.4. Platelets 216,000. Normal differential. Sodium 141, potassium 3.7, chloride 111. Anion gap of 4. BUN 12, creatinine 0.71. Glucose this morning 90.
--- NOTE | 2023-11-23 13:54 | Discharge Summary ---
Date of Service November 23, 2023 Admission HPI Per Admitting Provider 73-year-old female with history of hypertension, PE, TIA, COPD who presented to ED after mechanical fall this morning. States around 5 AM this morning, she tripped and fell down striking her head but without any loss of consciousness. She was able to crawl without bearing weight to resident and was encountered by the family and brought to the ED via EMS. Patient was found to have right hip fracture. Patient has been seen by orthopedics and plan for OR tomorrow. Pain is currently controlled. Also states he had cat scratch on her right leg yesterday by her pet cat. Denies any fever, chills, chest pain or shortness of breath nausea or vomiting. States history of TIA in 2019. History of PE on Eliquis, last dose was yesterday evening. Denies any cardiac issues. Pulmonary issues are stable. I spoke with orthopedics at bedside. Admission Exam Per Admitting Provider General: Lying comfortably in bed, not in acute distress, on NC HEENT: EOMI, DENISE, MMM Chest: Clear breath sounds bilaterally, no wheezes or crackles CVS: Regular rate and rhythm, normal heart sounds, no murmur Abdomen: Soft, non tender, not distended, normal bowel sounds Neuro: Awake, alert, oriented, conversing well, non focal Extremities: Right leg shortened and externally rotated Principal Diagnosis Mechanical fall with right hip fracture Status post right total hip arthroplasty 11/19/23 Discharge Exam Constitutional: WD/WN, vitals as above, NAD, sitting up in bed, pleasant, conversing easily Respiratory: normal respiratory effort, lungs clear to auscultation, no wheeze, rales, rhonchi. Normal insp/exp effort, no accessory muscle use Cardiovascular: RRR, no murmur, no edema Vessels: no JVD or carotid bruit Chest: normal inspection of chest Abdomen: normal bowel sounds, soft, nontender, no hepatosplenomegaly Musculoskeletal: Dressing in place; no soakage. Skin: no rashes, warm and dry normal turgor Neurologic: PERRL, EOMI, accommodation nl, no face palsy, no dysarthria CN's II- XI intact bilaterally and moves all extremities Psychiatric: A+Ox3, euthymic affect Discharge Data Allergies Allergy/AdvReac Type Severity Reaction Status Date / Time Iodinated Contrast Media Allergy Intermediate Hives Verified 11/18/23 09:18 oxycodone AdvReac Severe confusion Verified 11/20/23 17:47 Consultations 11/18/23 12:36 ED Decision to Admit Stat Procedures Performed Operation Date: 11/19/23 07:30 Actual Procedures p Right Total Hip Arthroplasty (Right) - Olman Zheng MD Ordered Studies 11/18/23 07:59 CT abd pelvis wo con Stat CT cervical spine wo con Stat CT chest diagnostic wo con Stat CT head/brain wo con Stat 11/20/23 07:31 CT head/brain wo con Stat Hospital Course (1) Closed fracture of right hip: (2) Fall: (3) COPD (chronic obstructive pulmonary disease): (4) History of pulmonary embolism: Plan 73-year-old female who presented to ED with mechanical fall sustaining right hip fracture Mechanical fall with right hip fracture Status post right total hip arthroplasty 11/19/23 Delirium, resolved Stable overall after surgery except for delirium likely secondary to recent surgery, anesthesia, narcotics, in the setting of Cymbalta and buspirone use CT head: No acute process Oxycodone and Dilaudid discontinued Patient is alert oriented x 3 after discontinuation of narcotics On Tylenol for pain control And underwent PT OT evaluation She was discharged to rehab Patient to follow-up with orthopedic as outpatient. No other medication changes were done. Please note the above document was generated using voice recognition software. It may contain grammatical, syntax or spelling errors. Any formal questions or concerns about the content, text or information contained within the body of this dictation should be directly addressed to the provider for clarification Total Time Total Time Spent Total Time Spent (In Minutes): 35 Total Time Includes: Examination of the Patient, Discharge Planning, Medication Reconciliation, Communication With Other Providers and Other Discharge Plan Discharge Items Patient Disposition: Home - Self-Care Reason For Visit: FALL WITH RIGHT HIP FRACTURE Discharge Diagnosis: Mechanical fall with right hip fracture Status post right total hip arthroplasty 11/19/23 Condition on Discharge: Fair Activity: Resume your previous activity Weightbearing: Right weightbearing Weightbearing Comment: with walker Non-emergency contact: Surgeon Call non-emergency contact if: you have any medication questions, your symptoms worsen, your pain is not controlled, your temperature is above 101, your wound has increased redness and your wound has increased drainage Follow-up/Referrals: Frederic Mason PA-C [Physician Cloth Carrier] - 12/04/23 1:30 pm Perfecto Sauceda DO [Primary Care Provider] - Diet: Regular Addtl Attending Provider Instructions: You were admitted to the hospital with hip fracture for which you underwent surgery on November 19, 2023. Please follow-up with your primary care doctor after discharge from rehab. Also follow-up with [facility] orthopedics on December 04, 2023 at 1:30 PM. Addtl Campaign Associate Provider Instructions: Orthopedic Discharge Instructions: WBAT with walker/crutches Resume Eliquis Pain control, ice Posterior hip precautions for 3 months Abduction pillow while in bed PT/OT Leave dressing in tact Rehab then outpatient PT Follow up with [facility] in 2 weeks for Zip line removal Pending Studies at Discharge: No Stand-Alone Forms: My [facility] D2S, Smoking Cessation Medications and DC Order Prescriptions: New acetaminophen 325 mg Tablet 650 mg PO Q6H Qty: 30 0RF pantoprazole 40 mg Tablet,Delayed Release (Dr/Ec) 40 mg PO QAM Qty: 30 0RF Continued ondansetron 4 mg tablet,disintegrating 4 - 8 mg PO Q8H PRN (Reason: nausea and vomiting) Qty: 14 0RF alendronate 70 mg Tablet 70 mg PO WK Rx Instructions: monday furosemide 40 mg tablet 40 mg PO DAILY Qty: 30 0RF atorvastatin 40 mg Tablet 40 mg PO QAM Qty: 60 0RF albuterol sulfate 0.63 mg/3 mL solution for nebulization 0.63 mg continuous nebulization UD Qty: 75 0RF Rx Instructions: 0.63mg twice daily, may increase to three times daily IF needed polyethylene glycol 3350 [Miralax] 17 gram Powder In Packet 17 g PO DAILY Qty: 30 0RF metoprolol succinate [Toprol XL] 50 mg tablet extended release 24 hr 50 mg PO QAM Qty: 60 0RF sennosides-docusate sodium [Senokot-S] 8.6-50 mg Tablet 1 tab PO BID Qty: 60 0RF cyanocobalamin (vitamin B-12) [Vitamin B-12] 1,000 mcg Tablet 1,000 mcg PO QAM Qty: 30 0RF potassium chloride 10 mEq tablet extended release 10 meq PO QAM Qty: 30 0RF aspirin 81 mg Tablet,Delayed Release (Dr/Ec) 81 mg PO QAM Qty: 30 0RF calcium carbonate [Calcium 600] 600 mg calcium (1,500 mg) Tablet 600 mg PO QAM Qty: 60 0RF buspirone 10 mg tablet 10 mg PO BID Qty: 60 0RF gabapentin 300 mg capsule 300 mg PO TID Qty: 90 0RF albuterol sulfate [Ventolin HFA] 90 mcg/actuation Hfa Aerosol Inhaler 2 puff INHALATION Q6H PRN (Reason: Shortness Of Breath) Qty: 6.7 0RF duloxetine 60 mg Capsule,Delayed Release(Dr/Ec) 60 mg PO HS Qty: 60 0RF cholecalciferol (vitamin D3) [Vitamin D3] 50 mcg (2,000 unit) Capsule 50 mcg PO QAM Qty: 30 0RF Spiriva Respimat 2.5 mcg/actuation Mist 2 inh INHALATION QAM Qty: 4 0RF Eliquis 2.5 mg tablet 2.5 mg PO BID Qty: 60 0RF guaifenesin [Mucinex] 600 mg Tablet Extended Release 12hr 600 mg PO BID PRN (Reason: Congestion) Qty: 60 0RF fluticasone furoate-vilanterol [Breo Ellipta] 200-25 mcg/dose blister with device 1 inh INHALATION QAM Qty: 60 0RF Changed hydroxyzine HCl 10 mg tablet 10 mg PO TID PRN (Reason: anxiety) Qty: 10 0RF Discontinued omeprazole 10 mg capsule,delayed release(DR/EC) 10 mg PO QAM Discharge Orders: Discharge Order (Routine); Ordered 11/23/23 Ordered By: Jorge Herrera Admission Data Admit Date/Time: 11/18/23 13:33 Attending Provider: Jorge Herrera Admit Provider: Lavell Kemp Primary Care Provider: Perfecto Sauceda Other Providers: Lavell Kemp; [place]; [facility]
== END 2023-11-23 14:15 | DRG 522 ==
LOC: ED 07:45 → EDINP 13:33 → SUATTDRO 13:33 → 2N 14:41 → 2W 11-22 05:00
DX: Y92.012 Bathroom of single-family (private) house as the place of occurrence of the external cause; I48.0 Paroxysmal atrial fibrillation; Z91.041 Radiographic dye allergy status; W18.39XA Other fall on same level, initial encounter; Z79.01 Long term (current) use of anticoagulants; S80.811A Abrasion, right lower leg, initial encounter; Z86.711 Personal history of pulmonary embolism; J44.9 Chronic obstructive pulmonary disease, unspecified; W55.03XA Scratched by cat, initial encounter; Z86.73 Personal history of transient ischemic attack (TIA), and cerebral infarction without residual deficits; I10 Essential (primary) hypertension; F41.9 Anxiety disorder, unspecified; F17.210 Nicotine dependence, cigarettes, uncomplicated; F05 Delirium due to known physiological condition; Z79.82 Long term (current) use of aspirin; S72.011A Unspecified intracapsular fracture of right femur, initial encounter for closed fracture

== ENCOUNTER 2023-12-03 15:55 | Inpatient (IN) ==
--- NOTE | 2023-12-03 16:15 | Emergency Department Note ---
Impression & Plan Dislocation of hip prosthesis, COPD (chronic obstructive pulmonary disease), Hypoxia, Fall, Hip hematoma, right, Anemia ED Provider Note NAME: GONZALES AMAYA AGE: 73 SEX: F : 1950 ARRIVES VIA: Ambulance INFORMANT: Patient, son ED PROVIDER(S): Keanu Corey MD CHIEF COMPLAINT: Fall, leg pain MEDICAL DECISION MAKING: Patient presents due to concern for fall and associated right leg pain. The patient was recently discharged from [facility] after an inpatient stay status post fall with a right total hip arthroplasty completed earlier this month. IV was established and blood was obtained. The patient had plain x-rays performed of the right hip. Patient still did have a dressing in place. Patient did not have any obvious using or crepitus please remain in place until speaking with orthopedics. Patient does have a superior hip dislocation noted on plain x-ray. Patient's blood work showed a white count of 14 with a hemoglobin of 10 and a platelet count of 521. The patient's kidney function was unremarkable with normal LFTs. After speaking with Dr. Leahy I was concerned given the patient's associated hypoxia history of COPD and recent right hip repair but I did not think it appropriate for the patient to be consciously sedated for reduction until discussion with Dr. Leahy. Dr. Leahy did speak with anesthesia and stated the OR time would not be available for a long time this evening so deferred reduction at this time pending likely reduction in the OR under general anesthesia in the morning. I did ask if he wanted me to take down the patient's right hip bandage but stated not to do so at this time. He also stated that given how recent it was he was enters with patient would have had issues with the fascial repairs and thus would want to defer until the patient was in the operating room for evaluation. It is to the on-call hospitalist service Dr. Herrera and the patient was admitted to the medicine service. Discussion w/ other healthcare providers: Inpatient medicine Dr. Sharon Leahy orthopedics Prior /Outside records reviewed: Reviewed a discharge summary from Dr. Herrera. Known history of hypertension PE TIA COPD had a mechanical fall. Patient did have a total right hip arthroplasty completed on November 18. Patient was diagnosed at the time of her presentation of this admission with a right hip fracture. The patient did have right total hip arthroplasty completed by Dr. Zheng on November 18. Differential diagnosis: Fracture, dislocation, contusion, strain, sprain, ICH, hemothorax, intra- abdominal injury, anemia among other causes were considered. Diagnostics, as interpreted by me: ECG: Normal sinus rhythm, rate of 78, normal intervals normal axis no ST elevations. Card Dr. Leahy with orthopedics Dr. Newman monitoring: An order was placed for continuous cardiac monitoring. The monitor shows a rate of 79 with sinus rhythm. Patient was placed on pulse oximetry Medical decision rules: [place] head CT rule Imaging studies: I informally interpreted the patient's x-ray of the right hip which does show superior dislocation with formal report to follow. HPI: Patient presents due to concern for fall. This occurred maybe around 3:00 about 1 hour and 30 minutes prior to arrival. Patient reportedly was smoking in the bathroom that she is not supposed to use this bathroom as it is not equipped with handrails. The patient did have a recent right hip fracture and hip replacements and recently was discharged from [facility] on Monday. The patient may have been down for approximately 10 minutes as family had gone out for a moment and returned to find her on her back. The patient does complain of right-sided hip and leg pain. The patient denies any head neck chest back or abdominal pain. The patient denies any upper extremity pain. Patient's son states that when she smokes she is tends to be "loopy" and is unsure as to why that is occurring. PAST MEDICAL HISTORY: See Below PAST SURGICAL HISTORY: See Below SOCIAL HISTORY: See Below HOME MEDICATIONS: See Below ALLERGIES: See Below VITALS: See Below PHYSICAL EXAMINATION: GENERAL: Uncomfortable in appearance but nontoxic. EYE EXAM: Normal conjunctiva. PERRL, no anisocoria and EOM's grossly intact w/o pain. OROPHARYNX: Moist mucus membranes, grossly normal dentition. NECK: Trachea midline, no stridor. Supple, no nuchal rigidity, no adenopathy, non-tender. No signs of meningismus. FROM of the neck with good chin to chest and neck extension. LUNGS: Clear to auscultation. Normal chest wall mechanics. HEART: NSR, no MRG. ABDOMEN: Abdomen soft, non-tender, no masses, no rebound or guarding. BACK: No CVA TTP. SKIN: No rashes and no bruising. UPPER EXTREMITIES: Upper extremities are grossly normal. LOWER EXTREMITIES: Right-sided bandage in place over the right lateral hip, pain to palpation noted, patient's right lower extremity shorter compared to the left. Decreased range of motion secondary to pain but with good DP pulse. NEURO EXAM: A&O x3, cranial nerves II-XII grossly intact, normal speech, moves all 4 extremities. Past Med/Surg History Medical History Arthritis Chronic pain A-fib Paroxysmal Follows with [facility] Taking warfarin History of pulmonary embolism 2019, Taking warfarin Migraine Hypertension Hyperlipidemia Poor historian Memory loss TIA (transient ischemic attack) 2019 Lupus Emphysema lung Surgical History S/P total right hip arthroplasty S/P trigger finger release Right trigger finger release (04/29/21): MAC at [facility] History of total hysterectomy with bilateral salpingo-oophorectomy (BSO) History of arthroscopy of left shoulder History of arthroscopy of right shoulder History of tooth extraction all upper teeth History of sinus surgery History of bilateral cataract extraction Family History Other Cancer Heart disease Hypertension No family history of adverse response to anesthesia Social History Smoking Status: Current some day smoker Tobacco Type: Cigarettes Cigarettes Per Day: 1-2 some days; Second Hand Exposure: Yes; Do You Dip or Chew Tobacco: No; Tobacco Cessation Education Requested by Patient: Yes Hx Alcohol Use: No Hx Substance Use: No Preferred Language: Slovenian Communication Ability: Effective Visual Impairment: No Limitations 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 Beliefs That Will Affect Care: None marital status: Current Living Situation: Alone current occupational status: retired Other Information That Helps Us Care for You: No Feels Safe at Home: Yes Safety Concerns: Feels Safe At This Time Assistive Devices: Bedside Commode, Raised Toilet Seat and Walker Allergies Allergies Allergy/AdvReac Type Severity Reaction Status Date / Time Iodinated Contrast Media Allergy Intermediate Hives Verified 12/03/23 19:55 oxycodone AdvReac Severe confusion Verified 12/03/23 19:55 Home Meds Home Medications Medication Instructions Recorded Confirmed alendronate 70 mg tablet 70 mg PO WK 01/13/23 12/03/23 albuterol sulfate 0.63 mg/3 mL 0.63 mg continuous nebulization 12/03/23 12/03/23 solution for nebulization [facility] ondansetron 4 mg disintegrating 4 mg PO Q8H PRN nausea and vomiting 12/03/23 12/03/23 tablet tramadol 50 mg tablet 50 mg PO Q6H PRN Pain 12/03/23 12/03/23 umeclidinium 62.5 mcg/actuation 1 inh inhalation DAILY 12/03/23 12/03/23 blister powder for inhalation (Incruse Ellipta) Previous Rx's Medication Instructions Recorded acetaminophen 325 mg tablet 650 mg (2 x 325 mg) PO Q6H #30 tabs 11/23/23 albuterol sulfate 90 mcg/actuation 2 puff inhalation Q6H PRN 11/23/23 aerosol inhaler (Ventolin HFA) Shortness Of Breath #6.7 grams apixaban 2.5 mg tablet (Eliquis) 2.5 mg PO BID #60 tabs 11/23/23 aspirin 81 mg tablet,delayed 81 mg PO QAM #30 tabs 11/23/23 release atorvastatin 40 mg tablet 40 mg PO QAM #60 tabs 11/23/23 buspirone 10 mg tablet 10 mg PO BID #60 tabs 11/23/23 calcium carbonate (Calcium 600) 600 mg PO QAM #60 tabs 11/23/23 cholecalciferol (vitamin D3) 50 50 mcg PO QAM #30 caps 11/23/23 mcg (2,000 unit) capsule (Vitamin D3) cyanocobalamin (vitamin B-12) 1,000 mcg PO QAM #30 tabs 11/23/23 1,000 mcg tablet (Vitamin B-12) duloxetine 60 mg capsule,delayed 60 mg PO HS #60 caps 11/23/23 release fluticasone furoate 200 1 inh inhalation QAM #60 ea 11/23/23 mcg-vilanterol 25 mcg/dose inhalation powder (Breo Ellipta) furosemide 40 mg tablet 40 mg PO DAILY #30 tabs 11/23/23 gabapentin 300 mg capsule 300 mg PO TID #90 caps 11/23/23 guaifenesin 600 mg tablet, 600 mg PO BID PRN Congestion #60 11/23/23 extended release 12 hr (Mucinex) tabs hydroxyzine HCl 10 mg tablet 10 mg PO TID PRN anxiety #10 tabs 11/23/23 metoprolol succinate 50 mg 50 mg PO QAM #60 tabs 11/23/23 tablet,extended release 24 hr (Toprol XL) pantoprazole 40 mg tablet,delayed 40 mg PO QAM #30 tabs 11/23/23 release polyethylene glycol 3350 17 gram 17 g PO DAILY #30 ea 11/23/23 oral powder packet (Miralax) potassium chloride 10 mEq 10 meq PO QAM #30 tabs 11/23/23 tablet,extended release sennosides 8.6 mg-docusate sodium 1 tab PO BID #60 tabs 11/23/23 50 mg tablet (Senokot-S) cyclobenzaprine 10 mg tablet 10 mg PO Q8H PRN muscle spasm #30 12/07/23 tabs Results & Data (ED) Vital Signs Vital Signs - 24 hr 12/03/23 16:09 12/03/23 16:15 Temperature 36.8 C Temperature Source Oral Pulse Rate 78 Pulse Rhythm Regular Pulse Strength Normal Respiratory Rate 20 Respiratory Effort / Characteristics Non-Labored Spontaneous Respiratory Depth Normal Normal Respiratory Pattern Regular Blood Pressure 151/75 H Blood Pressure Mean 100 Blood Pressure Position Lying Pulse Oximetry 98 Oxygen Delivery Method Room Air Oxygen Flow Rate 2 Sepsis Recent Fever Within 48 Hours No Sepsis New/Unexplained Change in Mental Status No Sepsis Action Taken by Nursing No Action Required Home Medications Current Medication List: was personally reviewed by me Laboratory Data Attestation: I reviewed the patient's lab results. 12/07/23 06:55 12/07/23 06:55 Lab Results 12/03/23 12/03/23 Range/Units 16:48 19:24 WBC 14.04 H (4.8-10.8) K/ul RBC 3.71 L (4.20-5.40) M/uL Hgb 10.8 L (12.0-16.0) g/dl Hct 35.0 L (37.0-47.0) % MCV 94.3 (80.0-100.0) fL MCH 29.1 (25.0-34.0) pg MCHC 30.9 L (32.0-36.0) g/dL RDW Std Deviation 48.4 H (36.4-46.3) fL RDW Coeff of Real 14.2 (11.5-14.5) % Plt Count 521 H (130-400) K/uL MPV 8.7 L (9.4-12.4) fL Immature Gran % (Auto) 0.4 % Neut % (Auto) 84.6 % Lymph % (Auto) 10.6 % Frontier % (Auto) 4.0 % Eos % (Auto) 0.1 % Baso % (Auto) 0.3 % Neut # (Auto) 11.87 H (1.40-6.50) K/uL Lymph # (Auto) 1.49 (1.20-3.40) K/uL Frontier # (Auto) 0.56 (0.11-0.59) K/uL Eos # (Auto) 0.02 (0.00-0.50) K/uL Baso # (Auto) 0.04 (0.00-0.20) K/uL Immature Gran # (Auto) 0.06 (0.01-0.20) K/uL PT 10.9 (9.0-12.0) Seconds INR 1.0 (0.9-1.1) APTT 30 (21-31) Seconds PTT Ratio 1.1 Sodium 139 (136-145) mmol/L Potassium 4.5 (3.5-5.1) mmol/L Chloride 105 (98-107) mmol/L Carbon Dioxide 30 (21-32) mmol/L Anion Gap 4 (3-11) BUN 14 (6-23) mg/dl Creatinine 0.69 (0.6-1.2) mg/dl Est Cr Clr Drug Dosing 67.0 ml/min Est GFR ( Amer) 98.7 ml/min Est GFR (Non-Af Amer) 85.2 ml/min BUN/Creatinine Ratio 20.3 H (10-20) Glucose 107 H (70-99(Fasting)) mg/dl Calcium 9.1 (8.6-10.3) mg/dl Total Bilirubin 0.4 (0.2-1.0) mg/dl AST 15 (13-39) U/L ALT 12 (7-52) U/L Alkaline Phosphatase 71 (34-104) U/L Total Protein 6.3 (6.0-8.3) gm/dl Albumin 3.7 (3.4-5.0) gm/dl Globulin 2.6 (2.5-4.0) gm/dl Albumin/Globulin Ratio 1.4 (0.9-2) Administered Medications Acetaminophen (Acetaminophen 325 Mg Tab) 650 mg PO Q4H PRN PRN Reason: Pain or Fever Stop: 01/02/24 21:40 Last Admin: 12/05/23 20:13 Dose: 650 mg Documented By: RUBÉN Apixaban (Apixaban 2.5 Mg Tab) 2.5 mg PO BID [facility] Stop: 01/04/24 10:59 Last Admin: 12/07/23 08:28 Dose: 2.5 mg Documented By: Admin: 12/06/23 20:12 Dose: 2.5 mg Documented By: Admin: 12/06/23 08:13 Dose: 2.5 mg Documented By: Admin: 12/05/23 20:14 Dose: 2.5 mg Documented By: Admin: 12/05/23 11:35 Dose: 2.5 mg Documented By: GRUPO Atorvastatin Calcium (Atorvastatin 40 Mg Tab) 40 mg PO QAM RAFY Stop: 01/03/24 08:59 Last Admin: 12/07/23 08:29 Dose: 40 mg Documented By: Admin: 12/06/23 08:13 Dose: 40 mg Documented By: Admin: 12/05/23 07:49 Dose: 40 mg Documented By: Admin: 12/04/23 09:22 Dose: 40 mg Documented By: GRUPO Buspirone HCl (Buspirone 5 Mg Tab) 10 mg PO BID RAFY Stop: 01/02/24 21:59 Last Admin: 12/07/23 08:28 Dose: 10 mg Documented By: Admin: 12/06/23 20:12 Dose: 10 mg Documented By: Admin: 12/06/23 08:13 Dose: 10 mg Documented By: Admin: 12/05/23 20:14 Dose: 10 mg Documented By: Admin: 12/05/23 07:48 Dose: 10 mg Documented By: Admin: 12/04/23 22:03 Dose: 10 mg Documented By: Admin: 12/04/23 09:22 Dose: 10 mg Documented By: Admin: 12/03/23 22:27 Dose: 10 mg Documented By: HARI Calcium Carbonate (Calcium Carbonate 1250mg Tab) 1 tab PO QAM RAFY Stop: 01/03/24 08:59 Last Admin: 12/07/23 08:28 Dose: 1 tab Documented By: Admin: 12/06/23 08:13 Dose: 1 tab Documented By: Admin: 12/05/23 07:48 Dose: 1 tab Documented By: Admin: 12/04/23 09:22 Dose: 1 tab Documented By: DTT Cyanocobalamin (Cyanocobalamin (B-12) 500 Mcg Tablet) 1,000 mcg PO QAM RAFY Stop: 01/03/24 08:59 Last Admin: 12/07/23 08:29 Dose: 1,000 mcg Documented By: Admin: 12/06/23 08:13 Dose: 1,000 mcg Documented By: Admin: 12/05/23 07:48 Dose: 1,000 mcg Documented By: Admin: 12/04/23 09:22 Dose: 1,000 mcg Documented By: GRUPO Cyclobenzaprine HCl (Cyclobenzaprine Hcl 10 Mg Tab) 10 mg PO Q8H PRN PRN Reason: Muscle Spasm Stop: 01/05/24 09:13 Last Admin: 12/06/23 20:12 Dose: 10 mg Documented By: RUBÉN Duloxetine HCl (Duloxetine Hcl 60 Mg Cap) 60 mg PO HS RAFY Stop: 01/02/24 21:59 Last Admin: 12/06/23 20:12 Dose: 60 mg Documented By: Admin: 12/05/23 20:14 Dose: 60 mg Documented By: Admin: 12/04/23 22:03 Dose: 60 mg Documented By: Admin: 12/03/23 22:27 Dose: 60 mg Documented By: HARI Fluticasone/Vilanterol (Fluticasone/Vilanterol 200/25mcg 14 Puffs/Inhaler) 1 puffs INH DAILY RAFY Stop: 01/04/24 08:59 Last Admin: 12/07/23 08:28 Dose: 1 puffs Documented By: Admin: 12/06/23 08:12 Dose: 1 puffs Documented By: Admin: 12/05/23 07:49 Dose: 1 puffs Documented By: GRUPO Melatonin (Melatonin 3 Mg Tab) 3 mg PO HS PRN PRN Reason: Sleep Stop: 01/04/24 20:32 Last Admin: 12/05/23 20:50 Dose: 3 mg Documented By: RUBÉN Metoprolol Succinate (Metoprolol Succ 50mg Ext Rel Tab) 50 mg PO QAM [facility] Stop: 01/03/24 08:59 Last Admin: 12/07/23 08:28 Dose: 50 mg Documented By: Admin: 12/06/23 08:13 Dose: 50 mg Documented By: Admin: 12/05/23 07:48 Dose: 50 mg Documented By: Admin: 12/04/23 09:22 Dose: 50 mg Documented By: DTT Morphine Sulfate (Morphine Sulfate 2 Mg/Ml Carp) 2 mg IV Q3H PRN PRN Reason: Pain Stop: 12/17/23 19:54 Last Admin: 12/04/23 19:47 Dose: 2 mg Documented By: Admin: 12/04/23 09:32 Dose: 2 mg Documented By: Admin: 12/04/23 01:31 Dose: 2 mg Documented By: Admin: 12/03/23 20:26 Dose: 2 mg Documented By: JERAD Pantoprazole Sodium (Pantoprazole 40 Mg Tab) [facility] [place]: 01/03/24 08:59 Last Admin: 12/07/23 08:29 Dose: 40 mg Documented By: Admin: 12/06/23 08:13 Dose: 40 mg Documented By: Admin: 12/05/23 07:48 Dose: 40 mg Documented By: Admin: 12/04/23 09:22 Dose: 40 mg Documented By: DTT Tramadol HCl (Tramadol Hcl 50 Mg Tablet) 25 mg PO Q4H PRN PRN Reason: Pain Stop: 01/02/24 22:01 Last Admin: 12/06/23 08:10 Dose: 25 mg Documented By: NAEL Umeclidinium/Vilanterol (Umeclidinium/Vilanterol 62.5/25mcg 7 Puffs/Inhaler) 1 puffs INH DAILY [facility] Stop: 01/04/24 08:59 Last Admin: 12/07/23 08:28 Dose: 1 puffs Documented By: [facility] Admin: 12/06/23 08:12 Dose: 1 puffs Documented By: Admin: 12/05/23 07:49 Dose: 1 puffs Documented By: GRUPO Vitamin D (Cholecalciferol 25 Mcg (1000 Units) Tab) 50 mcg PO QAM RAFY Stop: 01/03/24 08:59 Last Admin: 12/07/23 08:28 Dose: 50 mcg Documented By: Admin: 12/06/23 08:13 Dose: 50 mcg Documented By: Admin: 12/05/23 07:48 Dose: 50 mcg Documented By: Admin: 12/04/23 09:22 Dose: 50 mcg Documented By: DTT Discontinued Medications Albuterol (Albut/Ipratrop 3mg/0.5mg Neb 3 Ml Vial) 3 ml NEB NOW STA; Protocol Stop: 12/03/23 19:12 Last Admin: 12/03/23 19:45 Dose: 3 ml Documented By: JERAD Albuterol (Albut/Ipratrop 3mg/0.5mg Neb 3 Ml Vial) 3 ml NEB QIDR [facility]; Protocol Stop: 01/03/24 06:59 Last Admin: 12/06/23 11:07 Dose: 3 ml Documented By: Admin: 12/06/23 07:07 Dose: 3 ml Documented By: Admin: 12/05/23 20:15 Dose: 3 ml Documented By: Admin: 12/05/23 14:46 Dose: 3 ml Documented By: [id number] Admin: 12/05/23 12:44 Dose: 3 ml Documented By: Admin: 12/05/23 07:32 Dose: 3 ml Documented By: Admin: 12/04/23 19:26 Dose: 3 ml Documented By: Admin: 12/04/23 15:13 Dose: Not Given Documented By: Admin: 12/04/23 11:11 Dose: 3 ml Documented By: Admin: 12/04/23 07:19 Dose: Not Given Documented By: TMP Budesonide (Budesonide 0.5 Mg/2 Ml Vial (Pulmicort)) 0.5 mg NEB BIDR RAFY Stop: 01/03/24 06:59 Last Admin: 12/04/23 07:19 Dose: 0.5 mg Documented By: TMP Cyclobenzaprine HCl (Cyclobenzaprine Hcl 10 Mg Tab) 10 mg PO NOW STA Stop: 12/06/23 09:15 Last Admin: 12/06/23 10:32 Dose: 10 mg Documented By: TMH Fentanyl Citrate (Fentanyl Citrate Pf 100 Mcg/2 Ml Vial) 50 mcg IV NOW STA Stop: 12/03/23 16:44 Last Admin: 12/03/23 16:55 Dose: 50 mcg Documented By: VME Fentanyl Citrate (Fentanyl Citrate Pf 100 Mcg/2 Ml Vial) 50 mcg IV NOW STA Stop: 12/03/23 17:35 Last Admin: 12/03/23 17:55 Dose: 50 mcg Documented By: VME Formoterol Fumarate (Formoterol 20 Mcg/2 Ml Vial) 20 mcg NEB BIDR RAFY Stop: 01/02/24 21:59 Last Admin: 12/04/23 07:19 Dose: 20 mcg Documented By: Admin: 12/04/23 00:21 Dose: Not Given Documented By: EML Acetaminophen (Ofirmev) 1,000 mg in 100 mls @ 400 mls/hr IV NOW STA Stop: 12/03/23 17:49 Last Infusion: 12/03/23 18:41 Dose: Infused Documented By: Admin: 12/03/23 17:56 Dose: 400 mls/hr Documented By: VME Ceftriaxone Sodium 2,000 mg/ (Dextrose) 50 mls @ 100 mls/hr IV Q24H [facility]; Protocol Stop: 12/08/23 20:29 Last Infusion: 12/03/23 23:02 Dose: Infused Documented By: Admin: 12/03/23 22:28 Dose: 100 mls/hr Documented By: CLC Acetaminophen (Ofirmev) 1,000 mg in 100 mls @ 400 mls/hr IV Q8H [facility] Stop: 12/07/23 01:59 Last Infusion: 12/06/23 17:40 Dose: Infused Documented By: Admin: 12/06/23 17:25 Dose: 400 mls/hr Documented By: Infusion: 12/06/23 11:01 Dose: Infused Documented By: Admin: 12/06/23 10:33 Dose: 400 mls/hr Documented By: Admin: 12/06/23 01:45 Dose: Not Given Documented By: Infusion: 12/05/23 18:32 Dose: Infused Documented By: Admin: 12/05/23 18:07 Dose: 400 mls/hr Documented By: Infusion: 12/05/23 10:59 Dose: Infused Documented By: Admin: 12/05/23 10:38 Dose: 400 mls/hr Documented By: Infusion: 12/05/23 02:45 Dose: Infused Documented By: Admin: 12/05/23 02:25 Dose: 400 mls/hr Documented By: Infusion: 12/04/23 18:36 Dose: Infused Documented By: Admin: 12/04/23 17:52 Dose: 400 mls/hr Documented By: Infusion: 12/04/23 10:07 Dose: Infused Documented By: Admin: 12/04/23 09:19 Dose: 400 mls/hr Documented By: Infusion: 12/04/23 02:03 Dose: Infused Documented By: Admin: 12/04/23 01:38 Dose: 400 mls/hr Documented By: CLC Sodium Chloride (Nss) 500 mls @ 80 mls/hr IV .[id number] RAFY Stop: 01/02/24 21:40 Last Infusion: 12/04/23 01:38 Dose: Infused Documented By: Admin: 12/03/23 22:28 Dose: 80 mls/hr Documented By: CLC Sodium Chloride (Nss) 1,000 mls @ 80 mls/hr IV .[id number] RAFY Stop: 01/03/24 01:29 Last Infusion: 12/04/23 21:04 Dose: Infused Documented By: Admin: 12/04/23 17:52 Dose: 80 mls/hr Documented By: Infusion: 12/04/23 14:04 Dose: Infused Documented By: Admin: 12/04/23 01:34 Dose: 80 mls/hr Documented By: CLC Lactated Ringer's (Lr) 1,000 mls @ 0 mls/hr IV .Q0M RAFY Stop: 01/03/24 14:44 Last Infusion: 12/04/23 15:47 Dose: Infused Documented By: Admin: 12/04/23 14:47 Dose: 15 mls/hr Documented By: ALN Sodium Chloride (Nss) 1,000 mls @ 60 mls/hr IV .[id number] ONE Stop: 12/05/23 13:40 Last Infusion: 12/05/23 11:11 Dose: Infused Documented By: Admin: 12/04/23 21:06 Dose: 60 mls/hr Documented By: BK Morphine Sulfate (Morphine Sulfate 2 Mg/Ml Carp) 2 mg IV NOW STA Stop: 12/03/23 21:59 Last Admin: 12/03/23 22:24 Dose: 2 mg Documented By: HARI Tizanidine HCl (Tizanidine Hcl 4 Mg Tablet) 1 mg PO NOW STA Stop: 12/05/23 23:09 Last Admin: 12/05/23 23:38 Dose: 1 mg Documented By: RUBÉN Imaging Data Radiologist's Impression: Hip/Pelvis X-Ray 12/03/23 16:43 XR hip RT 2V w pelvis CLINICAL HISTORY: fall COMPARISON: Pelvis and right hip radiographs November 19, 2023. FINDINGS: There is superior dislocation of the femoral component of the right hip arthroplasty with respect to the acetabular cup. No acute fractures are identified. There is apparent slight rotation of the acetabular cup. This could be technical. IMPRESSION: 1. Superior dislocation of the femoral component of the right hip arthroplasty. 2. No fractures. 3. Apparent slight rotation of the acetabular cup since prior radiographs, possibly technical. ACT 112: Negative or not required by law. Electronically signed by: Ayush Neff M.D. 12/03/2023 5:34 PM Knee X-Ray 12/03/23 16:43 XR knee RT 1 or 2V routine CLINICAL HISTORY: fall COMPARISON: Right knee radiographs March 07, 2023. FINDINGS: Alignment of the total right knee arthroplasty is anatomic. There is no periprosthetic fracture. No definite joint effusion. Moderate vascular calcification is incidentally noted. IMPRESSION: Intact total right knee arthroplasty. No periprosthetic fracture. ACT 112: Negative or not required by law. Electronically signed by: Ayush Neff M.D. 12/03/2023 5:29 PM Tibia/Fibula X-Ray 12/03/23 16:43 XR tibia fibula RT 2V CLINICAL HISTORY: fall COMPARISON: Right knee radiographs March 07, 2023. FINDINGS: Alignment of the total right knee arthroplasty is anatomic. There is no acute fracture within the right tibia or fibula. Talar dome is intact. Posterior plantar calcaneal spurring is incidentally noted. IMPRESSION: 1. No fractures within the right tibia or fibula. 2. Intact total right knee arthroplasty. No periprosthetic fracture. ACT 112: Negative or not required by law. Electronically signed by: Ayush Neff M.D. 12/03/2023 5:[address] 12/03/23 16:44 CT OF THE CERVICAL SPINE WITHOUT CONTRAST CLINICAL HISTORY: Trauma COMPARISON STUDY: Cervical spine CT November 18, 2023. TECHNIQUE: Helical axial images of the cervical spine were obtained without IV contrast. Sagittal and coronal reconstructions were viewed. Automated exposure control was utilized for the study. A dose lowering technique was utilized adhering to the principles of ALARA. FINDINGS: Alignment of the cervical spine is anatomic. Vertebral body heights are maintained. No acute cervical spine fracture or subluxation is present. There is no prevertebral edema. Facet joints are intact. There is moderate multilevel disc space narrowing, osteophytosis and facet arthrosis within the cervical spine. The appearance of the cervical spine is unchanged since prior CT. IMPRESSION: No acute cervical spine fracture or subluxation. ACT 112: Negative or not required by law. Electronically signed by: Ayush Neff M.D. 12/03/2023 6:[address] 12/03/23 16:44 CT OF THE HEAD WITHOUT CONTRAST CLINICAL HISTORY: Trauma COMPARISON STUDY: Head CT November 20, 2023. CT DOSE: 1117.11 mGy.cm TECHNIQUE: Helical axial images of the head were obtained without IV contrast. Automated exposure control was utilized for the study. A dose lowering technique was utilized adhering to the principles of ALARA. FINDINGS: No acute intracranial hemorrhage, midline shift or mass effect is present. The ventricular system is unremarkable. The basal cisterns are patent. No extra-axial collections are present. There are no findings to suggest acute dural sinus thrombosis or acute territorial infarct. White matter hypodensities are unchanged and favor small vessel disease. There are postoperative findings within the sinuses. There is mild ethmoid sinus mucosal thickening. IMPRESSION: 1. No acute intracranial findings. No change in appearance of the brain. 2. No calvarial fractures. ACT 112: Negative or not required by law. Electronically signed by: Ayush Neff M.D. 12/03/2023 6:[address] 12/03/23 17:34 CT hip RT wo con CLINICAL HISTORY: fall, hip pain COMPARISON STUDY: CT of the abdomen and pelvis November 18, 2023. Pelvis and right hip radiographs November 19, 2023. Pelvis and right hip radiographs performed earlier today. TECHNIQUE: Axial images of the right hip were obtained without IV contrast. Sagittal and coronal reconstructions were viewed. Automated exposure control was utilized for the study. A dose lowering technique was utilized adhering to the principles of ALARA. Metallic artifact reduction software was utilized. FINDINGS: There is superior dislocation of the femoral component of the right hip arthroplasty with respect to the acetabular cup. Polyethylene along the periphery of the metallic component is present. No periprosthetic fracture is identified although this exam is compromised by streak artifact from the surgical hardware. No acute fracture within visualized portions of the pelvis is noted. There is a large complex fluid collection adjacent to the femoral component of the right hip arthroplasty. A portion of this collection, adjacent to the right gluteus medius and claudy muscles measures 7.5 x 4.6 cm and is consistent with a hematoma. The fluid collection extends along the lateral aspect of the femoral component of the right hip arthroplasty. There is no soft tissue gas. IMPRESSION: 1. Superior dislocation of the femoral component of the right hip arthroplasty. No acute fractures although sensitivity diminished given streak artifact from the hardware. 2. Large complex fluid collection consistent with a subacute to acute hematoma adjacent to the right hip arthroplasty, as described above. ACT 112: Negative or not required by law. Electronically signed by: Ayush Neff M.D. 12/03/2023 6:59 PM By the Discharge Plan Visit Data Chief Complaint: Fall ED Provider: Keanu Corey Discharge Problem: Dislocation of hip prosthesis, COPD (chronic obstructive pulmonary disease), Hypoxia, Fall, Hip hematoma, right, Anemia Patient Disposition: Home - Self-Care Discharge Instructions Interventions: ED Discharge Assessment Last Done: 12/03/23 22:06 Discharge Problem: Dislocation of hip prosthesis Qualifiers: Encounter type: initial encounter Qualified Code(s): T84.029A - Dislocation of unspecified internal joint prosthesis, initial encounter; Z96.649 - Presence of unspecified artificial hip joint COPD (chronic obstructive pulmonary disease) Qualifiers: COPD type: unspecified COPD Qualified Code(s): J44.9 - Chronic obstructive pulmonary disease, unspecified Fall Qualifiers: Encounter type: initial encounter Qualified Code(s): W19.XXXA - Unspecified fall, initial encounter Hip hematoma, right Qualifiers: Encounter type: initial encounter Qualified Code(s): S70.01XA - Contusion of right hip, initial encounter Anemia Qualifiers: Anemia type: unspecified type Qualified Code(s): D64.9 - Anemia, unspecified
[2023-12-03] MEDS: fentaNYL citrate PF 100 MCG/2 ML VIAL IV STA ×2 (16:55→17:55)
[2023-12-03 17:19] LABS: Albumin Globulin Ratio 1.4 (0.9-2); Albumin Level 3.7 gm/dl (3.4-5.0); BUN Creatinine Ratio 20.3 (10-20); Bilirubin,Total 0.4 mg/dl (0.2-1.0); Calcium 9.1 mg/dl (8.6-10.3); Est GFR (African American) 98.7 ml/min; Est GFR (Non-African American) 85.2 ml/min; Globulin 2.6 gm/dl (2.5-4.0); Potassium 4.5 mmol/L (3.5-5.1); Total Protein 6.3 gm/dl (6.0-8.3)
--- NOTE | 2023-12-03 17:31 | XRay Report ---
XR knee RT 1 or 2V routine CLINICAL HISTORY: fall COMPARISON: Right knee radiographs March 07, 2023. FINDINGS: Alignment of the total right knee arthroplasty is anatomic. There is no periprosthetic fra cture. No definite joint effusion. Moderate vascular calcification is incidentally noted. IMPRESSION: Intact total right knee arthroplasty. No periprosthetic fracture. ACT 112: Negative or not required by law. Electronically signed by: Ayush Neff M.D. 12/03/2023 5:29 PM
--- NOTE | 2023-12-03 17:35 | XRay Report ---
XR hip RT 2V w pelvis CLINICAL HISTORY: fall COMPARISON: Pelvis and right hip radiographs November 19, 2023. FINDINGS: There is superior dislocation of the femoral component of the right hip arthroplasty with respect to the acetabular cup. No acute fractures are identified. There is apparent slight rotation o f the acetabular cup. This could be technical. IMPRESSION: 1. Superior dislocation of the femoral component of the right hip arthroplasty. 2. No fractures. 3. Apparent slight rotation of the acetabular cup since prior radiographs, possibly technical. ACT 112: Negative or not required by law. Electronically signed by: Ayush Neff M.D. 12/03/2023 5:34 PM
--- NOTE | 2023-12-03 17:50 | XRay Report ---
XR tibia fibula RT 2V CLINICAL HISTORY: fall COMPARISON: Right knee radiographs March 07, 2023. FINDINGS: Alignment of the total right knee arthroplasty is anatomic. There is no acute fracture wit hin the right tibia or fibula. Talar dome is intact. Posterior plantar calcaneal spurring is incident ally noted. IMPRESSION: 1. No fractures within the right tibia or fibula. 2. Intact total right knee arthroplasty. No periprosthetic fracture. ACT 112: Negative or not required by law. Electronically signed by: Ayush Neff M.D. 12/03/2023 5:48 PM
[2023-12-03] MEDS: ACETAMINOPHEN 1,000 MG/100 ML VIAL IV STA (17:56)
--- NOTE | 2023-12-03 18:49 | CT Scan Report ---
CT OF THE HEAD WITHOUT CONTRAST CLINICAL HISTORY: Trauma COMPARISON STUDY: Head CT November 20, 2023. CT DOSE: 1117.11 mGy.cm TECHNIQUE: Helical axial images of the head were obtained without IV contrast. Automated exposure con trol was utilized for the study. A dose lowering technique was utilized adhering to the principles o f ALARA. FINDINGS: No acute intracranial hemorrhage, midline shift or mass effect is present. The ventricular system is unremarkable. The basal cisterns are patent. No extra-axial collections are present. There are no findings to suggest acute dural sinus thrombosis or acute territorial infarct. White matter hy podensities are unchanged and favor small vessel disease. There are postoperative findings within the sinuses. There is mild ethmoid sinus mucosal thickening. IMPRESSION: 1. No acute intracranial findings. No change in appearance of the brain. 2. No calvarial fractures. ACT 112: Negative or not required by law. Electronically signed by: Ayuhs Neff M.D. 12/03/2023 6:48 PM
--- NOTE | 2023-12-03 18:51 | CT Scan Report ---
CT OF THE CERVICAL SPINE WITHOUT CONTRAST CLINICAL HISTORY: Trauma COMPARISON STUDY: Cervical spine CT November 18, 2023. TECHNIQUE: Helical axial images of the cervical spine were obtained without IV contrast. Sagittal a nd coronal reconstructions were viewed. Automated exposure control was utilized for the study. A do se lowering technique was utilized adhering to the principles of ALARA. FINDINGS: Alignment of the cervical spine is anatomic. Vertebral body heights are maintained. No acut e cervical spine fracture or subluxation is present. There is no prevertebral edema. Facet joints are intact. There is moderate multilevel disc space narrowing, osteophytosis and facet arthrosis within the cervical spine. The appearance of the cervical spine is unchanged since prior CT. IMPRESSION: No acute cervical spine fracture or subluxation. ACT 112: Negative or not required by law. Electronically signed by: Ayush Neff M.D. 12/03/2023 6:50 PM
--- NOTE | 2023-12-03 19:01 | CT Scan Report ---
CT hip RT wo con CLINICAL HISTORY: fall, hip pain COMPARISON STUDY: CT of the abdomen and pelvis November 18, 2023. Pelvis and right hip radiographs November 19, 2023. Pelvis and right hip radiographs performed earlier today. TECHNIQUE: Axial images of the right hip were obtained without IV contrast. Sagittal and coronal di nstructions were viewed. Automated exposure control was utilized for the study. A dose lowering tech nique was utilized adhering to the principles of ALARA. Metallic artifact reduction software was util ized. FINDINGS: There is superior dislocation of the femoral component of the right hip arthroplasty with r espect to the acetabular cup. Polyethylene along the periphery of the metallic component is present. No periprosthetic fracture is identified although this exam is compromised by streak artifact from th e surgical hardware. No acute fracture within visualized portions of the pelvis is noted. There is a large complex fluid collection adjacent to the femoral component of the right hip arthroplasty. A por tion of this collection, adjacent to the right gluteus medius and claudy muscles measures 7.5 x 4.6 cm and is consistent with a hematoma. The fluid collection extends along the lateral aspect of the fe moral component of the right hip arthroplasty. There is no soft tissue gas. IMPRESSION: 1. Superior dislocation of the femoral component of the right hip arthroplasty. No acute fractures al though sensitivity diminished given streak artifact from the hardware. 2. Large complex fluid collection consistent with a subacute to acute hematoma adjacent to the right hip arthroplasty, as described above. ACT 112: Negative or not required by law. Electronically signed by: Ayush Neff M.D. 12/03/2023 6:59 PM
[2023-12-03] MEDS: ALBUT/IPRATROP 3MG/0.5MG NEB 3 ML VIAL NEB STA (19:45)
[2023-12-03 19:55] LABS: Basophils # (auto) 0.04 K/uL (0.00-0.20); Basophils % (auto) 0.3 %; Eosinophils # (auto) 0.02 K/uL (0.00-0.50); Eosinophils % (auto) 0.1 %; Hemoglobin 10.8 g/dl (12.0-16.0); Immature Granulocytes # (auto) 0.06 K/uL (0.01-0.20); Immature Granulocytes % (auto) 0.4 %; Lymphocytes # (auto) 1.49 K/uL (1.20-3.40); Lymphocytes % (auto) 10.6 %; Mean Corpuscular Hemoglobin 29.1 pg (25.0-34.0); Mean Corpuscular Hgb Conc 30.9 g/dL (32.0-36.0); Mean Corpuscular Volume 94.3 fL (80.0-100.0); Mean Platelet Volume 8.7 fL (9.4-12.4); Monocytes # (auto) 0.56 K/uL (0.11-0.59); Neutrophils # (auto) 11.87 K/uL (1.40-6.50); Neutrophils % (auto) 84.6 %; Platelet Count 521 K/uL (130-400); RDW Coefficient of Variation 14.2 % (11.5-14.5); RDW Standard Deviation 48.4 fL (36.4-46.3); Red Blood Count 3.71 M/uL (4.20-5.40); White Blood Count 14.04 K/ul (4.8-10.8)
[2023-12-03 20:22] LABS: Partial Thromboplastin Ratio 1.1; Partial Thromboplastin Time 30 Seconds (21-31); Prothrombin Time 10.9 Seconds (9.0-12.0)
[2023-12-03] MEDS: MoRPHine SULFATE 2 MG/ML CARP IV PRN (20:26)
--- NOTE | 2023-12-03 20:38 | History & Physical Report ---
Date of Service December 03, 2023 Assessment & Plan (1) Dislocation of hip prosthesis: (2) Hip hematoma, right: Plan: Recently admitted from November 17 to November 23, 2023 for right hip fracture for which she underwent right hip arthroplasty on November 19, 2023. Patient was discharged to [facility] and came back home 2 days ago. On presentation to the ED, patient is normotensive, afebrile and saturating well at 2 L of oxygen CBC reveals leukocytosis. Hemoglobin of 10.8; slight improvement from discharge. CT of the hip showed superior dislocation of femoral component of right hip arthroplasty. Large complex fluid collection consistent with subacute to acute to subacute hematoma adjacent of right hip arthroplasty. ED physician talked with orthopedic on-call(Dr. Leahy) who recommended admission to the hospital; n.p.o. from midnight. Pain control with IV Tylenol [id number], morphine as needed. Son reports history of delirium on hydrocodone and oxycodone IV fluids. Lasix on hold Orthopedics to reduce the dislocation tomorrow a.m. n.p.o. from midnight [id number] DuoNeb for the time being given history of COPD Started on empiric ceftriaxone for concern of UTI. Obtain urinalysis; order placed for Christiansen placement Paroxysmal atrial fibrillation-EKG reviewed; normal sinus rhythm. Continue Toprol. Eliquis currently on hold COPD-started on usrui-nxu-dzsis DuoNebs for the time being, also budesonide and formoterol nebs Anxiety-on BuSpar, Cymbalta-resumed History of TIA-on aspirin, statin DVT prophylaxis-Eliquis on hold DNR/DNI History of Present Illness Chief Complaint: Mechanical fall Dislocation of right hip arthroplasty Primary Care Provider: Perfecto Sauceda DO History obtained from chart review and interview with the, patient's son at bedside Past medical history of hypertension, PE, TIA, COPD Recently admitted from November 17 to November 23, 2023 for right hip fracture for which she underwent right hip arthroplasty on November 19, 2023. She developed d elirium after the surgery; no other significant postoperative events. Patient was discharged to [facility]. Patient came back home 2 days ago. Patient had a mechanical fall after slipping in the bathroom and was brought to the hospital here. Patient reports significant pain on her hip at the present time; unable to provide more information His son report UTI-like symptoms for several days. Her last dose of Eliquis was today morning On presentation to the ED, patient is normotensive, afebrile and saturating well at 2 L of oxygen CBC reveals leukocytosis. Hemoglobin of 10.8; slight improvement from discharge. CT of the hip showed superior dislocation of femoral component of right hip arthroplasty. Large complex fluid collection consistent with subacute to acute to subacute hematoma adjacent of right hip arthroplasty. ED physician talked with orthopedic on-call(Dr. Leahy) who recommended admission to the hospital; n.p.o. from midnight. Patient is referred for admission to the hospitalist. Allergies Allergy/AdvReac Type Severity Reaction Status Date / Time Iodinated Contrast Media Allergy Intermediate Hives Verified 12/03/23 19:55 oxycodone AdvReac Severe confusion Verified 12/03/23 19:55 Home Medications Medication Instructions Recorded Confirmed Type alendronate 70 mg tablet 70 mg PO WK 01/13/23 12/03/23 History acetaminophen 325 mg tablet 650 mg (2 x 325 mg) PO Q6H #30 tabs 11/23/23 12/03/23 Rx albuterol sulfate 90 mcg/actuation 2 puff inhalation Q6H PRN 11/23/23 12/03/23 Rx aerosol inhaler (Ventolin HFA) Shortness Of Breath #6.7 grams apixaban 2.5 mg tablet (Eliquis) 2.5 mg PO BID #60 tabs 11/23/23 12/03/23 Rx aspirin 81 mg tablet,delayed 81 mg PO QAM #30 tabs 11/23/23 12/03/23 Rx release atorvastatin 40 mg tablet 40 mg PO QAM #60 tabs 11/23/23 12/03/23 Rx buspirone 10 mg tablet 10 mg PO BID #60 tabs 11/23/23 12/03/23 Rx calcium carbonate (Calcium 600) 600 mg PO QAM #60 tabs 11/23/23 12/03/23 Rx cholecalciferol (vitamin D3) 50 50 mcg PO QAM #30 caps 11/23/23 12/03/23 Rx mcg (2,000 unit) capsule (Vitamin D3) cyanocobalamin (vitamin B-12) 1,000 mcg PO QAM #30 tabs 11/23/23 12/03/23 Rx 1,000 mcg tablet (Vitamin B-12) duloxetine 60 mg capsule,delayed 60 mg PO HS #60 caps 11/23/23 12/03/23 Rx release fluticasone furoate 200 1 inh inhalation QAM #60 ea 11/23/23 12/03/23 Rx mcg-vilanterol 25 mcg/dose inhalation powder (Breo Ellipta) furosemide 40 mg tablet 40 mg PO DAILY #30 tabs 11/23/23 12/03/23 Rx gabapentin 300 mg capsule 300 mg PO TID #90 caps 11/23/23 12/03/23 Rx guaifenesin 600 mg tablet, 600 mg PO BID PRN Congestion #60 11/23/23 12/03/23 Rx extended release 12 hr (Mucinex) tabs hydroxyzine HCl 10 mg tablet 10 mg PO TID PRN anxiety #10 tabs 11/23/23 12/03/23 Rx metoprolol succinate 50 mg 50 mg PO QAM #60 tabs 11/23/23 12/03/23 Rx tablet,extended release 24 hr (Toprol XL) pantoprazole 40 mg tablet,delayed 40 mg PO QAM #30 tabs 11/23/23 12/03/23 Rx release polyethylene glycol 3350 17 gram 17 g PO DAILY #30 ea 11/23/23 12/03/23 Rx oral powder packet (Miralax) potassium chloride 10 mEq 10 meq PO QAM #30 tabs 11/23/23 12/03/23 Rx tablet,extended release sennosides 8.6 mg-docusate sodium 1 tab PO BID #60 tabs 11/23/23 12/03/23 Rx 50 mg tablet (Senokot-S) albuterol sulfate 0.63 mg/3 mL 0.63 mg continuous nebulization 12/03/23 12/03/23 History solution for nebulization [facility] ondansetron 4 mg disintegrating 4 mg PO Q8H PRN nausea and vomiting 12/03/23 12/03/23 History tablet tramadol 50 mg tablet 50 mg PO Q6H PRN Pain 12/03/23 12/03/23 History umeclidinium 62.5 mcg/actuation 1 inh inhalation DAILY 12/03/23 12/03/23 History blister powder for inhalation (Incruse Ellipta) Past Med/Surg History Medical History (Updated 12/03/23 @ 20:32 by Jorge Herrera MD) Arthritis Chronic pain A-fib Paroxysmal Follows with [facility] cardio Taking warfarin History of pulmonary embolism 2019, Taking warfarin Migraine Hypertension Hyperlipidemia Poor historian Memory loss TIA (transient ischemic attack) 2019 Lupus Emphysema lung Surgical History (Updated 12/02/23 @ 00:11 by Donovan Salcedo) S/P total right hip arthroplasty S/P trigger finger release Right trigger finger release (04/29/21): MAC at [facility] History of total hysterectomy with bilateral salpingo-oophorectomy (BSO) History of arthroscopy of left shoulder History of arthroscopy of right shoulder History of tooth extraction all upper teeth History of sinus surgery History of bilateral cataract extraction Family History Other Cancer Heart disease Hypertension No family history of adverse response to anesthesia Social History Smoking Status: Current every day smoker Tobacco Type: Cigarettes Cigarettes Per Day: 2 cigs/day; Second Hand Exposure: No; Do You Dip or Chew Tobacco: No; Hx Alcohol Use: Yes Hx Substance Use: No Preferred Language: Yi Communication Ability: Effective Visual Impairment: No Limitations Patient Care Assistant Required: No Beliefs That Will Affect Care: None marital status: Current Living Situation: Alone current occupational status: retired Feels Safe at Home: Yes Assistive Devices: Raised Toilet Seat, Walker and Other Review of Systems Review of Systems: All systems reviewed & are unremarkable except as noted in Subjective Physical Exam Physical Exam: Constitutional: Awake, oriented to self and place. Insignificant distress due to pain Respiratory: Bilateral vesicular breath sound Cardiovascular: RRR, no murmur, no edema Vessels: no JVD or carotid bruit Chest: normal inspection of chest Abdomen: normal bowel sounds, soft, nontender, no hepatosplenomegaly Musculoskeletal: Right leg shorter, significant deformity on right hip. Skin: no rashes, warm and dry normal turgor Neurologic: PERRL, EOMI, accommodation nl, no face palsy, no dysarthria CN's II- XI intact bilaterally and moves all extremities Psychiatric: A+Ox3, euthymic affect Results & Data Results & Data Vital Signs (Past 12 Hours) Vital Signs Temp Pulse Pulse Resp BP BP Pulse Ox 12/03/23 18:00 83 18 156/76 H 96 12/03/23 17:18 95 H 12/03/23 16:44 83 94 12/03/23 16:09 36.8 C 78 20 151/75 H 98 O2 Del Method O2 Flow Rate 12/03/23 18:00 Nasal Cannula 2 12/03/23 17:18 12/03/23 16:44 Nasal Cannula 2 12/03/23 16:09 Room Air 2
[2023-12-03] MEDS: MoRPHine SULFATE 2 MG/ML CARP IV STA (22:24)
[2023-12-03] MEDS: DULoxetine HCL 60 MG CAP PO SCH (22:27)
[2023-12-03] MEDS: busPIRone 5 MG TAB PO SCH (22:27)
[2023-12-03] MEDS: cefTRIAXone SODIUM 2,000 MG in DEXTROSE 5 % MINI-B 50 ML IV SCH (22:28)
[2023-12-03] MEDS: SODIUM CHLORIDE 0.9% 500 ML IV SCH (22:28)
[2023-12-04 00:03] LABS: Appearance Urine Clear (Clear); Bilirubin Urine Negative (Negative); Blood Urine Negative (Negative); Color Urine Yellow; Glucose Urine UA Negative (Negative); Ketones Urine Negative (Negative); Leukocyte Esterase Urine Negative (Negative); Nitrite Urine Negative (Negative); Protein Urine Negative (Negative); Specific Gravity Urine 1.021 (1.000-1.030); Urobilinogen Urine Negative (Negative); pH Urine 6.5 (4.5-7.5)
[2023-12-04] MEDS: FORMOTEROL 20 MCG/2 ML VIAL NEB SCH (00:21)
[2023-12-04] MEDS: SODIUM CHLORIDE 0.9% 1,000 ML IV SCH (01:34)
[2023-12-04] MEDS: ACETAMINOPHEN 1,000 MG/100 ML VIAL IV SCH (01:38)
[2023-12-04 06:18] LABS: Basophils # (auto) 0.05 K/uL (0.00-0.20); Basophils % (auto) 0.4 %; Eosinophils # (auto) 0.04 K/uL (0.00-0.50); Eosinophils % (auto) 0.4 %; Hematocrit (blood only) 33.1 % (37.0-47.0); Hemoglobin 10.1 g/dl (12.0-16.0); Immature Granulocytes # (auto) 0.06 K/uL (0.01-0.20); Immature Granulocytes % (auto) 0.5 %; Lymphocytes # (auto) 2.14 K/uL (1.20-3.40); Lymphocytes % (auto) 18.8 %; Mean Corpuscular Hemoglobin 28.8 pg (25.0-34.0); Mean Corpuscular Hgb Conc 30.5 g/dL (32.0-36.0); Mean Corpuscular Volume 94.3 fL (80.0-100.0); Mean Platelet Volume 8.5 fL (9.4-12.4); Monocytes # (auto) 0.88 K/uL (0.11-0.59); Monocytes % (auto) 7.7 %; Neutrophils # (auto) 8.24 K/uL (1.40-6.50); Neutrophils % (auto) 72.2 %; Platelet Count 482 K/uL (130-400); RDW Coefficient of Variation 14.2 % (11.5-14.5); RDW Standard Deviation 48.5 fL (36.4-46.3); Red Blood Count 3.51 M/uL (4.20-5.40); White Blood Count 11.41 K/ul (4.8-10.8)
[2023-12-04 06:35] LABS: Albumin Globulin Ratio 1.4 (0.9-2); Albumin Level 3.5 gm/dl (3.4-5.0); BUN Creatinine Ratio 18.8 (10-20); Bilirubin,Total 0.4 mg/dl (0.2-1.0); Creatinine Clr Calc Pharmacy 71.9 ml/min; Est GFR (African American) 101.2 ml/min; Est GFR (Non-African American) 87.3 ml/min; Globulin 2.5 gm/dl (2.5-4.0); Potassium 4.2 mmol/L (3.5-5.1)
[2023-12-04] MEDS: ALBUT/IPRATROP 3MG/0.5MG NEB 3 ML VIAL NEB SCH (07:19)
[2023-12-04] MEDS: BUDESONIDE 0.5 MG/2 ML VIAL (PULMICORT) NEB SCH (07:19)
[2023-12-04] MEDS: METOPROLOL SUCC 50MG EXT REL TAB PO SCH (09:22)
[2023-12-04] MEDS: CYANOCOBALAMIN (B-12) 500 MCG TABLET PO SCH (09:22)
[2023-12-04] MEDS: ATORVASTATIN 40 MG TAB PO SCH (09:22)
[2023-12-04] MEDS: PANTOprazole 40 MG TAB PO SCH (09:22)
[2023-12-04] MEDS: CHOLECALCIFEROL 25 MCG (1000 UNITS) TAB PO SCH (09:22)
[2023-12-04] MEDS: CALCIUM CARBONATE 1250MG TAB PO SCH (09:22)
--- NOTE | 2023-12-04 10:42 | Hospitalist Progress Note ---
Date of Service December 04, 2023 Assessment & Plan (1) Dislocation of hip prosthesis: (2) Hip hematoma, right: Plan: Recently admitted from November 17 to November 23, 2023 for right hip fracture for which she underwent right hip arthroplasty on November 19, 2023. Patient was discharged to [facility] and came back home 3 days ago. On presentation to the ED, patient is normotensive, afebrile and saturating well at 2 L of oxygen Mild leukocytosis on admission trending down, likely reactive. UA unremarkable and hence will discontinue empiric ceftriaxone. H&H overall stable more than 10 CT of the hip showed superior dislocation of femoral component of right hip ar throplasty. Large complex fluid collection consistent with subacute to acute to subacute hematoma adjacent of right hip arthroplasty. Remains n.p.o. pending orthopedic evaluation and OR. Eliquis on hold. Continue pain management with IV Tylenol, as needed morphine. Son reports history of delirium on hydrocodone and oxycodone. Gentle IVF. Paroxysmal atrial fibrillation-EKG reviewed; normal sinus rhythm. Continue Toprol. Eliquis currently on hold COPD-started on fldek-rdr-hfuyb DuoNebs for the time being, also budesonide and formoterol nebs Anxiety-on BuSpar, Cymbalta History of TIA-on aspirin, statin DVT prophylaxis-Eliquis on hold Disposition-pending orthopedic evaluation and OR Updated family at bedside Time spent approximately 35 minutes Admission and Anticipated Discharge Date Admission Date: December 03, 2023 Subjective Patient was seen and examined at bedside in presence of family. Pain is controlled. No other issues. Awaiting Ortho evaluation for further management of her displaced prosthesis and hematoma Review of Systems Review of Systems: All systems reviewed & are unremarkable except as noted in Subjective Physical Exam Physical Exam: General: Lying comfortably in bed, not in distress, on room air HEENT: EOMI, DENISE, MMM Chest: Clear breath sounds bilaterally, no wheezes or crackles CVS: Regular rate and rhythm, normal heart sounds, no murmur Abdomen: Soft, non tender, not distended, normal bowel sounds Neuro: Awake, alert, oriented, conversing well, non focal Extremities: No cyanosis, clubbing or edema Results & Data Results & Data Vital Signs (Past 12 Hours) Vital Signs Temp Pulse Resp BP Pulse Ox O2 Del Method 12/04/23 07:35 37.2 C 75 17 146/62 H 92 Room Air 12/04/23 07:20 76 18 95 Nasal Cannula 12/04/23 03:15 36.9 C 93 H 15 135/60 91 Room Air 12/03/23 23:30 36.6 C 80 18 108/62 93 Room Air Laboratory Results Short CBC 12/03/23 12/04/23 Range/Units 19:24 05:49 WBC 14.04 H 11.41 H (4.8-10.8) K/ul Hgb 10.8 L 10.1 L (12.0-16.0) g/dl Hct 35.0 L 33.1 L (37.0-47.0) % Plt Count 521 H 482 H (130-400) K/uL BMP 12/03/23 12/04/23 16:48 05:49 Sodium 139 137 Potassium 4.5 4.2 Chloride 105 105 Carbon Dioxide 30 28 BUN 14 12 Creatinine 0.69 0.64 Glucose 107 H 91 Calcium 9.1 9.0 Liver Function 12/03/23 12/04/23 Range/Units 16:48 05:49 Total Bilirubin 0.4 0.4 (0.2-1.0) mg/dl AST 15 18 (13-39) U/L ALT 12 11 (7-52) U/L Alkaline Phosphatase 71 62 (34-104) U/L Albumin 3.7 3.5 (3.4-5.0) gm/dl Urine 12/03/23 Range/Units Unknown Urine Color Yellow Urine Appearance Clear (Clear) Urine pH 6.5 (4.5-7.5) Ur Specific Olden 1.021 (1.000-1.030) Urine Protein Negative (Negative) Urine Glucose (UA) Negative (Negative)
--- NOTE | 2023-12-04 10:44 | Electrocardiogram Report ---
Test Reason : Blood Pressure : / mmHG Vent. Rate : 078 BPM Atrial Rate : 078 BPM P-R Int : 146 ms QRS Dur : 082 ms QT Int : 382 ms P-R-T Axes : 081 021 022 degrees QTc Int : 435 ms Normal sinus rhythm Normal ECG When compared with ECG of 18-NOV-2023 08:09, Premature atrial complexes are no longer Present Confirmed by Josh Aquino ([id number]) on 12/04/2023 10:44:14 AM Referred By: Perfecto Sauceda Confirmed By:Josh Aquino
[2023-12-04] MEDS: LACTATED RINGER'S 1,000 ML IV SCH (14:47)
[2023-12-04] MEDS ORDERED: ONDANSETRON INJ 2 MG/ML 2 ML VIAL IV PRN (15:13)
[2023-12-04] MEDS ORDERED: fentaNYL citrate PF 100 MCG/2 ML VIAL IV PRN (15:13)
[2023-12-04] MEDS ORDERED: ePHEDrine sulfate 50 MG/ML AMP IV PRN (15:13)
[2023-12-04] MEDS ORDERED: ATROPINE SULFATE 0.1 MG/ML 10ML SYR IV PRN (15:13)
--- NOTE | 2023-12-04 15:13 | Anesthesiology Consultation ---
Date of Service December 04, 2023 Assessment & Plan Chart Review Chart Review: Acceptable Risk for Surgery and Patient NOT seen in Pre Admission Testing Consults Requested none Proposed Anesthesia Anesthesia Type: General History Surgery Operation Date: 12/04/23 08:20 Proposed Procedures p Right Hip Closed Reduction, Possible Open S/P KVNG - Alexei Leahy, Height/Weight Height: 5 ft 1 in Weight: 78.2 kg Allergies Allergy/AdvReac Type Severity Reaction Status Date / Time Iodinated Contrast Media Allergy Intermediate Hives Verified 12/03/23 19:55 oxycodone AdvReac Severe confusion Verified 12/03/23 19:55 Medications Home Medications Medication Instructions Recorded Confirmed Last Taken alendronate 70 mg tablet 70 mg PO WK 01/13/23 12/03/23 11/12/23 acetaminophen 325 mg tablet 650 mg (2 x 325 mg) PO Q6H #30 tabs 11/23/23 12/03/23 Unknown albuterol sulfate 90 mcg/actuation 2 puff inhalation Q6H PRN 11/23/23 12/03/23 Unknown aerosol inhaler (Ventolin HFA) Shortness Of Breath #6.7 grams apixaban 2.5 mg tablet (Eliquis) 2.5 mg PO BID #60 tabs 11/23/23 12/03/23 Unknown aspirin 81 mg tablet,delayed 81 mg PO QAM #30 tabs 11/23/23 12/03/23 Unknown release atorvastatin 40 mg tablet 40 mg PO QAM #60 tabs 11/23/23 12/03/23 Unknown buspirone 10 mg tablet 10 mg PO BID #60 tabs 11/23/23 12/03/23 Unknown calcium carbonate (Calcium 600) 600 mg PO QAM #60 tabs 11/23/23 12/03/23 Unknown cholecalciferol (vitamin D3) 50 50 mcg PO QAM #30 caps 11/23/23 12/03/23 Unknown mcg (2,000 unit) capsule (Vitamin D3) cyanocobalamin (vitamin B-12) 1,000 mcg PO QAM #30 tabs 11/23/23 12/03/23 Unknown 1,000 mcg tablet (Vitamin B-12) duloxetine 60 mg capsule,delayed 60 mg PO HS #60 caps 11/23/23 12/03/23 Unknown release fluticasone furoate 200 1 inh inhalation QAM #60 ea 11/23/23 12/03/23 Unknown mcg-vilanterol 25 mcg/dose inhalation powder (Breo Ellipta) furosemide 40 mg tablet 40 mg PO DAILY #30 tabs 11/23/23 12/03/23 Unknown gabapentin 300 mg capsule 300 mg PO TID #90 caps 11/23/23 12/03/23 Unknown guaifenesin 600 mg tablet, 600 mg PO BID PRN Congestion #60 11/23/23 12/03/23 Unknown extended release 12 hr (Mucinex) tabs hydroxyzine HCl 10 mg tablet 10 mg PO TID PRN anxiety #10 tabs 11/23/23 12/03/23 Unknown metoprolol succinate 50 mg 50 mg PO QAM #60 tabs 11/23/23 12/03/23 Unknown tablet,extended release 24 hr (Toprol XL) pantoprazole 40 mg tablet,delayed 40 mg PO QAM #30 tabs 11/23/23 12/03/23 Unknown release polyethylene glycol 3350 17 gram 17 g PO DAILY #30 ea 11/23/23 12/03/23 Unknown oral powder packet (Miralax) potassium chloride 10 mEq 10 meq PO QAM #30 tabs 11/23/23 12/03/23 Unknown tablet,extended release sennosides 8.6 mg-docusate sodium 1 tab PO BID #60 tabs 11/23/23 12/03/23 Unknown 50 mg tablet (Senokot-S) albuterol sulfate 0.63 mg/3 mL 0.63 mg continuous nebulization 12/03/23 12/03/23 Unknown solution for nebulization AMHS ondansetron 4 mg disintegrating 4 mg PO Q8H PRN nausea and vomiting 12/03/23 12/03/23 Unknown tablet tramadol 50 mg tablet 50 mg PO Q6H PRN Pain 12/03/23 12/03/23 Unknown umeclidinium 62.5 mcg/actuation 1 inh inhalation DAILY 12/03/23 12/03/23 Unknown blister powder for inhalation (Incruse Ellipta) Active Medications Generic Name Dose Route Start Last Admin Trade Name Freq PRN Reason Stop Dose Admin Albuterol 3 ml 12/04/23 07:00 12/04/23 15:13 Albut/Ipratrop 3mg/0.5mg Neb 3 Ml Vial NEB 01/03/24 06:59 Not Given QIDR RAFY Protocol Atorvastatin Calcium 40 mg 12/04/23 09:00 12/04/23 09:22 Atorvastatin 40 Mg Tab PO 01/03/24 08:59 40 mg QAM RAFY Administration Buspirone HCl 10 mg 12/03/23 22:00 12/04/23 09:22 Buspirone 5 Mg Tab PO 01/02/24 21:59 10 mg BID RAFY Administration Calcium Carbonate 1 tab 12/04/23 09:00 12/04/23 09:22 Calcium Carbonate 1250mg Tab PO 01/03/24 08:59 1 tab QAM RAFY Administration Cyanocobalamin 1,000 mcg 12/04/23 09:00 12/04/23 09:22 Cyanocobalamin (B-12) 500 Mcg Tablet PO 01/03/24 08:59 1,000 mcg QAM RAFY Administration Duloxetine HCl 60 mg 12/03/23 22:00 12/03/23 22:27 Duloxetine Hcl 60 Mg Cap PO 01/02/24 21:59 60 mg HS RAFY Administration Acetaminophen 1,000 mg in 100 mls @ 400 mls/hr 12/04/23 02:00 12/04/23 10:07 Ofirmev IV 12/07/23 01:59 Infused Q8H RAFY Infusion Sodium Chloride 1,000 mls @ 80 mls/hr 12/04/23 01:30 12/04/23 01:34 Nss IV 01/03/24 01:29 80 mls/hr .[id number] RAFY Administration Lactated Ringer's 1,000 mls @ 0 mls/hr 12/04/23 14:45 12/04/23 14:47 Lr IV 01/03/24 14:44 15 mls/hr .Q0M RAFY Administration KVO Metoprolol Succinate 50 mg 12/04/23 09:00 12/04/23 09:22 Metoprolol Succ 50mg Ext Rel Tab PO 01/03/24 08:59 50 mg QAM RAFY Administration Morphine Sulfate 2 mg 12/03/23 19:55 12/04/23 09:32 Morphine Sulfate 2 Mg/Ml Carp IV 12/17/23 19:54 2 mg Q3H PRN Administration Pain Pantoprazole Sodium 40 mg 12/04/23 09:00 12/04/23 09:22 Pantoprazole 40 Mg Tab PO 01/03/24 08:59 40 mg QAM RAFY Administration Vitamin D 50 mcg 12/04/23 09:00 12/04/23 09:22 Cholecalciferol 25 Mcg (1000 Units) Tab PO 01/03/24 08:59 50 mcg QAM RAFY Administration NPO Date Last Intake of Fluids: 12/03/23 Time Last Intake of Fluids: 00:00 Date Last Intake of Solids: 12/03/23 Time Last Intake of Solids: 00:00 Past Medical History Medical History (Updated 12/03/23 @ 20:32 by Jorge Herrera MD) Arthritis Chronic pain A-fib Paroxysmal Follows with [facility] Taking warfarin History of pulmonary embolism 2019, Taking warfarin Migraine Hypertension Hyperlipidemia Poor historian Memory loss TIA (transient ischemic attack) 2019 Lupus Emphysema lung Past Family History Family History Other Cancer Heart disease Hypertension No family history of adverse response to anesthesia Past Surgical History Surgical History (Updated 12/02/23 @ 00:11 by Donovan Salcedo) S/P total right hip arthroplasty S/P trigger finger release Right trigger finger release (04/29/21): MAC at [facility] History of total hysterectomy with bilateral salpingo-oophorectomy (BSO) History of arthroscopy of left shoulder History of arthroscopy of right shoulder History of tooth extraction all upper teeth History of sinus surgery History of bilateral cataract extraction Social History Smoking Status: Current some day smoker tobacco type: cigarettes Smoking cigarettes per day: 1-2 some days Do You Dip or Chew Tobacco: No Hx Alcohol Use: No alcohol intake frequency: 0-2 drinks per day Hx Substance Use: No substance use type: does not use Physical Exam Vital Signs Last Vital Signs Temp 36.8 C 12/04/23 14:40 Pulse 76 12/04/23 14:40 Resp 17 12/04/23 14:40 BP 139/64 12/04/23 14:40 Pulse Ox 91 12/04/23 14:40 O2 Del Method Room Air 12/04/23 14:40 O2 Flow Rate 2 12/03/23 18:00 Testing Laboratory Results 12/04/23 05:49 12/04/23 05:49 PT 10.9 Seconds (9.0-12.0) 12/03/23 19:24 INR 1.0 (0.9-1.1) 12/03/23 19:24 APTT 30 Seconds (21-31) 12/03/23 19:24 Urine Color Yellow 12/03/23 Unknown Urine Appearance Clear (Clear) 12/03/23 Unknown Urine pH 6.5 (4.5-7.5) 12/03/23 Unknown Ur Specific [place] 1.021 (1.000-1.030) 12/03/23 Unknown Urine Protein Negative (Negative) 12/03/23 Unknown Urine Glucose (UA) Negative (Negative) 12/03/23 Unknown Urine Ketones Negative (Negative) 12/03/23 Unknown Urine Nitrite Negative (Negative) 12/03/23 Unknown Ur Leukocyte Esterase Negative (Negative) 12/03/23 Unknown
--- NOTE | 2023-12-04 15:32 | History & Physical Bridge Note ---
Date of Service December 04, 2023 History & Physical Bridge Note I have examined the patient, reviewed the History & Physical and in the interval since the performance of the History & Physical I have noted the following changes of clinical significance: no changes noted Met with the patient. I had a discussion with her regarding risk benefits potential complications of closed reduction under anesthesia of her hip versus possible open reduction. After reviewing these she elected to proceed with the procedure and written consent was obtained
--- NOTE | 2023-12-04 15:33 | Orthopedic Consultation ---
Date of Consultation December 04, 2023 Assessment & Plan (1) Dislocation of hip prosthesis: 73-year-old female with right prosthetic hip dislocation Nonweightbearing right lower extremity Bedrest Pain control Hold DVT prophylaxis Medical management Plan for OR for right hip closed reduction under anesthesia possible open reduction History of Present Illness Reason for Consultation: Right prosthetic hip dislocation Attending Physician: Lavell Kemp MD History of Present Illness 73-year-old female presenting after sustaining a right prosthetic hip dislocation yesterday. She was just recently discharged home from a facility. Underwent total hip arthroplasty approximately 2 weeks ago. She reports that she was was in the bathroom and fell causing her hip to dislocate. She was then taken to the emergency department where radiographs were obtained which demonstrated a right prosthetic hip dislocation. Due to patient's medical comorbidities ED personnel recommended patient be taken to the OR for sedation and hip reduction Allergies Allergy/AdvReac Type Severity Reaction Status Date / Time Iodinated Contrast Media Allergy Intermediate Hives Verified 12/03/23 19:55 oxycodone AdvReac Severe confusion Verified 12/03/23 19:55 Home Medications Medication Instructions Recorded Confirmed Type alendronate 70 mg tablet 70 mg PO WK 01/13/23 12/03/23 History acetaminophen 325 mg tablet 650 mg (2 x 325 mg) PO Q6H #30 tabs 11/23/23 12/03/23 Rx albuterol sulfate 90 mcg/actuation 2 puff inhalation Q6H PRN 11/23/23 12/03/23 Rx aerosol inhaler (Ventolin HFA) Shortness Of Breath #6.7 grams apixaban 2.5 mg tablet (Eliquis) 2.5 mg PO BID #60 tabs 11/23/23 12/03/23 Rx aspirin 81 mg tablet,delayed 81 mg PO QAM #30 tabs 11/23/23 12/03/23 Rx release atorvastatin 40 mg tablet 40 mg PO QAM #60 tabs 11/23/23 12/03/23 Rx buspirone 10 mg tablet 10 mg PO BID #60 tabs 11/23/23 12/03/23 Rx calcium carbonate (Calcium 600) 600 mg PO QAM #60 tabs 11/23/23 12/03/23 Rx cholecalciferol (vitamin D3) 50 50 mcg PO QAM #30 caps 11/23/23 12/03/23 Rx mcg (2,000 unit) capsule (Vitamin D3) cyanocobalamin (vitamin B-12) 1,000 mcg PO QAM #30 tabs 11/23/23 12/03/23 Rx 1,000 mcg tablet (Vitamin B-12) duloxetine 60 mg capsule,delayed 60 mg PO HS #60 caps 11/23/23 12/03/23 Rx release fluticasone furoate 200 1 inh inhalation QAM #60 ea 11/23/23 12/03/23 Rx mcg-vilanterol 25 mcg/dose inhalation powder (Breo Ellipta) furosemide 40 mg tablet 40 mg PO DAILY #30 tabs 11/23/23 12/03/23 Rx gabapentin 300 mg capsule 300 mg PO TID #90 caps 11/23/23 12/03/23 Rx guaifenesin 600 mg tablet, 600 mg PO BID PRN Congestion #60 11/23/23 12/03/23 Rx extended release 12 hr (Mucinex) tabs hydroxyzine HCl 10 mg tablet 10 mg PO TID PRN anxiety #10 tabs 11/23/23 12/03/23 Rx metoprolol succinate 50 mg 50 mg PO QAM #60 tabs 11/23/23 12/03/23 Rx tablet,extended release 24 hr (Toprol XL) pantoprazole 40 mg tablet,delayed 40 mg PO QAM #30 tabs 11/23/23 12/03/23 Rx release polyethylene glycol 3350 17 gram 17 g PO DAILY #30 ea 11/23/23 12/03/23 Rx oral powder packet (Miralax) potassium chloride 10 mEq 10 meq PO QAM #30 tabs 11/23/23 12/03/23 Rx tablet,extended release sennosides 8.6 mg-docusate sodium 1 tab PO BID #60 tabs 11/23/23 12/03/23 Rx 50 mg tablet (Senokot-S) albuterol sulfate 0.63 mg/3 mL 0.63 mg continuous nebulization 12/03/23 12/03/23 History solution for nebulization AMHS ondansetron 4 mg disintegrating 4 mg PO Q8H PRN nausea and vomiting 12/03/23 12/03/23 History tablet tramadol 50 mg tablet 50 mg PO Q6H PRN Pain 12/03/23 12/03/23 History umeclidinium 62.5 mcg/actuation 1 inh inhalation DAILY 12/03/23 12/03/23 History blister powder for inhalation (Incruse Ellipta) Patient History Medical History (Updated 12/03/23 @ 20:32 by Jorge Herrera MD) Arthritis Chronic pain A-fib Paroxysmal Follows with [facility] Taking warfarin History of pulmonary embolism 2019, Taking warfarin Migraine Hypertension Hyperlipidemia Poor historian Memory loss TIA (transient ischemic attack) 2019 Lupus Emphysema lung Surgical History (Updated 12/02/23 @ 00:11 by Donovan Salcedo) S/P total right hip arthroplasty S/P trigger finger release Right trigger finger release (04/29/21): MAC at [facility] History of total hysterectomy with bilateral salpingo-oophorectomy (BSO) History of arthroscopy of left shoulder History of arthroscopy of right shoulder History of tooth extraction all upper teeth History of sinus surgery History of bilateral cataract extraction Family History Other Cancer Heart disease Hypertension No family history of adverse response to anesthesia Social History Smoking Status: Current some day smoker Tobacco Type: Cigarettes Cigarettes Per Day: 1-2 some days; Second Hand Exposure: Yes; Do You Dip or Chew Tobacco: No; Tobacco Cessation Education Requested by Patient: Yes Hx Alcohol Use: No Hx Substance Use: No Preferred Language: Slovak Communication Ability: Effective Visual Impairment: No 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 Thigh is soft and compressible silt s/spn/dpn/t/s fires ta/ehl/gsc +dp/pt Results & Data Vital Signs (Past 12 Hours) Vital Signs Temp Pulse Pulse Resp BP Pulse Ox O2 Del Method 12/04/23 14:40 36.8 C 76 17 139/64 91 Room Air 12/04/23 11:45 37.0 C 79 18 134/64 93 Room Air 12/04/23 11:11 78 16 95 Room Air 12/04/23 08:00 82 12/04/23 07:35 37.2 C 75 17 146/62 H 92 Room Air 12/04/23 07:20 76 18 95 Nasal Cannula Diagnostic Findings Posterior superior dislocation of right total hip
[2023-12-04] MEDS ORDERED: fentaNYL citrate PF 100 MCG/2 ML VIAL ONE (15:34)
[2023-12-04] MEDS ORDERED: PROPOFOL IV EMULSION 10 MG/ML 20 ML VIAL IV ONE (15:34)
[2023-12-04] MEDS ORDERED: ONDANSETRON INJ 2 MG/ML 2 ML VIAL ONE (15:34)
[2023-12-04] MEDS ORDERED: MIDAZOLAM HCL 1 MG/ML 2ML VIAL ONE (15:34)
[2023-12-04] MEDS ORDERED: LIDOCAINE 2% 2 ML VIAL/AMP(20MG/ML) INFIL ONE (15:34)
--- NOTE | 2023-12-04 16:24 | Fluoroscopy Report ---
FL hip RT 1V CLINICAL HISTORY: Closed reduction of right hip. COMPARISON STUDY: Right hip CT 12/03/2023. FLUOROSCOPY TIME: 3.9 seconds FLUOROSCOPY IMAGES: 1 Ka,r: 1.0 mGy FINDINGS: Status post reduction of the dislocated right femoral prosthesis. Alignment appears anatomi c on this single spot image. IMPRESSION: Fluoroscopic assistance as above. ACT 112: Negative or not required by law. Electronically signed by: Fox Mckeon M.D. 12/04/2023 4:23 PM
--- NOTE | 2023-12-04 16:24 | Operative Report ---
Post Operative Report Pre & Post Diagnosis Operation Date: 12/04/23 08:20 Pre-Op Diagnosis: Dislocation of hip prosthesis Post-Op Diagnosis: Dislocation of hip prosthesis I identified the patient and participated in the time-out.: Yes Procedure Operation Date: 12/04/23 08:20 Actual Procedures p Right Hip Closed Reduction Status post Right Hip Total Arthroplasty(Right) - Alexei Leahy DO Surgeon Alexei Leahy, Dispatch Officer none Estimated Blood Loss 0 Findings Consistent with Post-Op Diagnosis see dictation Specimens none Complications none Indications 73-year-old female who recently underwent total hip arthroplasty approximately 2 weeks ago presenting after sustaining a fall in her bathroom and noting inability to ambulate and deformity of her right lower extremity. In the emergency department radiographs were obtained demonstrating a posterior superior dislocation of her right total hip arthroplasty. Due to medical comorbidities ED personnel did not want to sedate in the emergency department therefore patient was admitted to medical service for planned closed reduction in the operating room under general anesthesia. I met with the patient and her family preoperatively and we have a discussion regarding risk benefits potential complications of right hip closed duction under anesthesia versus possible open reduction. After reviewing these they elected to proceed with surgical intervention and written consent was obtained. Description of Procedure Patient was properly marked and identified in the preoperative holding area. They were then taken back to the operative suite where they were positioned supine on a regular OR table. Timeout was then performed. After successful induction of anesthesia the patient was then given relaxant and using a combination of hip flexion internal rotation and traction the hip was able to be successfully reduced. The hip was then taken through range of motion and noted to be stable. Radiographs were obtained demonstrating successful reduction. Patient was then placed in a knee immobilizer and taken to the recovery room in hemodynamically stable condition I attest to the content of the Intraoperative Record and any orders documented therein. Any exceptions are noted below.
--- NOTE | 2023-12-04 16:36 | Anesthesiology Progress Note ---
Date of Service December 04, 2023 Anesthesia Post Procedure Vital Signs Vital Signs: Temp Pulse Pulse Pulse Resp BP Pulse Ox 12/04/23 16:30 84 20 151/99 H 94 12/04/23 16:20 82 14 149/72 H 100 12/04/23 16:10 36.0 C L 73 16 102/50 L 95 12/04/23 14:40 36.8 C 76 17 139/64 91 12/04/23 11:45 37.0 C 79 18 134/64 93 12/04/23 11:11 78 16 95 12/04/23 08:00 82 12/04/23 07:35 37.2 C 75 17 146/62 H 92 12/04/23 07:20 76 18 95 12/04/23 03:15 36.9 C 93 H 15 135/60 91 12/03/23 23:30 36.6 C 80 18 108/62 93 12/03/23 22:00 83 12/03/23 21:41 37.2 C 84 22 173/96 H 92 12/03/23 21:27 79 12/03/23 20:30 85 18 151/84 H 92 12/03/23 18:00 83 18 156/76 H 96 12/03/23 17:18 95 H 12/03/23 16:44 83 94 O2 Del Method O2 Flow Rate 12/04/23 16:30 Room Air 12/04/23 16:20 Oxymask 6 12/04/23 16:10 Oxymask 6 12/04/23 14:40 Room Air 12/04/23 11:45 Room Air 12/04/23 11:11 Room Air 12/04/23 08:00 12/04/23 07:35 Room Air 12/04/23 07:20 Nasal Cannula 12/04/23 03:15 Room Air 12/03/23 23:30 Room Air 12/03/23 22:00 12/03/23 21:41 Room Air 12/03/23 21:27 12/03/23 20:30 Room Air 12/03/23 18:00 Nasal Cannula 2 12/03/23 17:18 12/03/23 16:44 Nasal Cannula 2 Pain Intensity Right Hip: Pain Intensity: 8 Transfer of Care Handoff Completed per policy Notes Mental Status: alert / awake / arousable Patient Amnestic to Procedure: Yes Nausea / Vomiting: adequately controlled Pain: adequately controlled Airway Patency, RR, SpO2: stable & adequate BP & HR: stable & adequate Hydration State: stable & adequate Anesthetic Complications: no major complications apparent and Pt Satisfied with anesthetic care
[2023-12-04] MEDS: SODIUM CHLORIDE 0.9% 1,000 ML IV ONE (21:06)
[2023-12-05] MEDS ORDERED: OLANZapine 10 MG/2.1 ML SDV IM PRN (00:33)
[2023-12-05 04:02] LABS: Appearance Urine Clear (Clear); Bacteria Urine Automated None Seen (None Seen); Bilirubin Urine Negative (Negative); Blood Urine Trace (Negative); Cast Urine Automated 0-2 /lpf (0-2); Color Urine Yellow; Glucose Urine UA Negative (Negative); Ketones Urine Negative (Negative); Leukocyte Esterase Urine Trace (Negative); Nitrite Urine Negative (Negative); Protein Urine Negative (Negative); RBC Urine Automated 0-2 /hpf (0-2); Specific Gravity Urine 1.012 (1.000-1.030); Urobilinogen Urine Negative (Negative); pH Urine 6.5 (4.5-7.5)
[2023-12-05 06:36] LABS: Hematocrit (blood only) 29.5 % (37.0-47.0); Hemoglobin 9.4 g/dl (12.0-16.0); Mean Corpuscular Hemoglobin 29.9 pg (25.0-34.0); Mean Corpuscular Hgb Conc 31.9 g/dL (32.0-36.0); Mean Corpuscular Volume 93.9 fL (80.0-100.0); Mean Platelet Volume 8.7 fL (9.4-12.4); Platelet Count 428 K/uL (130-400); RDW Coefficient of Variation 14.1 % (11.5-14.5); RDW Standard Deviation 47.8 fL (36.4-46.3); Red Blood Count 3.14 M/uL (4.20-5.40); White Blood Count 9.54 K/ul (4.8-10.8)
[2023-12-05 07:03] LABS: BUN Creatinine Ratio 12.7 (10-20); Calcium 8.5 mg/dl (8.6-10.3); Creatinine Clr Calc Pharmacy 83.3 ml/min; Est GFR (African American) 106.3 ml/min; Est GFR (Non-African American) 91.8 ml/min
[2023-12-05] MEDS: UMECLIDINIUM/VILANTEROL 62.5/25MCG 7 PUFFS/INHALER INH SCH (07:49)
[2023-12-05] MEDS: FLUTICASONE/VILANTEROL 200/25MCG 14 PUFFS/INHALER INH SCH (07:49)
--- NOTE | 2023-12-05 09:45 | Orthopedic Progress Note ---
Date of Service December 05, 2023 Assessment & Plan (1) Dislocation of hip prosthesis: Plan: Patient is postop day 1 status post a closed reduction of right total hip arthroplasty dislocation Patient was transition from right knee immobilizer to a hip T scope brace that was fitted and adjusted to patient today. This is locked at 70 degrees flexion. T scope brace should be in place at all times for 6 weeks. Patient and I discussed hip precautions including wearing the brace to avoid flexion of the hip past 90 degrees, internal rotation and crossing her legs. At this time she does not have an abduction pillow and recommending bedside pillow be placed in between her legs when she is supine. Will discuss with Dr. Castillo if he would like her to have abduction pillow this will be ordered. Zipline is still in place anticipate removal today or tomorrow. Patient will continue under primary care team for DVT prophylaxis and pain control. May participate in PT and OT with T scope brace weightbearing as tolerated. Patient had imaging of right knee along with tibia and fibula on 12/02 negative for any fractures per radiologist. Will continue to monitor symptoms persist will repeat imaging. Admission and Anticipated Discharge Date Admission Date: December 03, 2023 Subjective Patient is a 73-year-old female who is a known patient of Dr. Bhavna rosa. She has a history of having a total hip arthroplasty of the right hip on 11/19/[address] Bhavna rosa. She was recently discharged from rehabilitation and returned home and on 12/03/2023 she had dislocated her hip. Dr. Leahy was able to have a successful closed reduction on 12/04/2023. She was seen bedside this a.m. She reports that she feels like she is doing okay. She states she has some discomfort in her hip on the right side in the groin. She does report some pain into the knee. She states that she is not having any numbness or tingling in her leg. She does have a history of having a total knee arthroplasty done by Dr. Cook. She offers no concerns at this time. She denies any fevers, chills, shortness of breath or chest pain, dizziness, or calf pain. She states she was able to eat breakfast this morning denies any nausea or vomiting or abdominal pain. Review of Systems Review of Systems: Please refer to HPI Physical Exam Physical Exam: General: Patient is alert and oriented x 3 no acute distress pleasant and conversive. Integumentary: Skin is normal in color and temperature over the right lower extremity negative for any ecchymosis or abrasions. Several and dry splint is loosely applied over the incision of her hip with Zipline in place negative for any drainage erythema or fluctuance. Musculoskeletal: Right lower extremity is in normal alignment negative for any deformity. She is able to tolerate active dorsiflexion and plantarflexion of the right lower extremity. She is able to tolerate gentle hip flexion internal and external rotation without discomfort. She is able to actively flex her knees slightly and reports no discomfort. There is no palpable tenderness over her joint line. Negative for effusion of her knee. She is unable to do a straight leg raise without assistance. Her calf is soft and nontender dorsal pedis pulse is 1+. Results & Data Vital Signs (Past 12 Hours) Vital Signs Temp Pulse Pulse Resp BP Pulse Ox O2 Del Method 12/05/23 08:31 37.0 C 88 18 126/72 93 Room Air 12/05/23 07:33 82 17 96 Nasal Cannula 12/05/23 02:30 36.4 C L 80 18 129/55 L 96 Nasal Cannula 12/04/23 23:39 88 12/04/23 23:38 36.7 C 83 24 132/63 97 Nasal Cannula O2 Flow Rate 12/05/23 08:31 12/05/23 07:33 2 12/05/23 02:30 2.0 12/04/23 23:39 12/04/23 23:38 2.0 Laboratory Results 12/05/23 12/05/23 Range/Units Unknown 05:48 WBC 9.54 (4.8-10.8) K/ul RBC 3.14 L (4.20-5.40) M/uL Hgb 9.4 L (12.0-16.0) g/dl Hct 29.5 L (37.0-47.0) % MCV 93.9 (80.0-100.0) fL MCH 29.9 (25.0-34.0) pg MCHC 31.9 L (32.0-36.0) g/dL RDW Std Deviation 47.8 H (36.4-46.3) fL RDW Coeff of Real 14.1 (11.5-14.5) % Plt Count 428 H (130-400) K/uL MPV 8.7 L (9.4-12.4) fL Sodium 140 (136-145) mmol/L Potassium 4.0 (3.5-5.1) mmol/L Chloride 108 H (98-107) mmol/L Carbon Dioxide 28 (21-32) mmol/L Anion Gap 4 (3-11) BUN 7 (6-23) mg/dl Creatinine 0.55 L (0.6-1.2) mg/dl Est Cr Clr Drug Dosing 83.3 ml/min Est GFR ( Amer) 106.3 ml/min Est GFR (Non-Af Amer) 91.8 ml/min BUN/Creatinine Ratio 12.7 (10-20) Glucose 104 H (70-99(Fasting)) mg/dl Calcium 8.5 L (8.6-10.3) mg/dl Urine Color Yellow Urine Appearance Clear (Clear) Urine pH 6.5 (4.5-7.5) Ur Specific [place] 1.012 (1.000-1.030) Urine Protein Negative (Negative) Urine Glucose (UA) Negative (Negative) Urine Ketones Negative (Negative) Urine Blood Trace H (Negative) Urine Nitrite Negative (Negative) Urine Bilirubin Negative (Negative) Urine Urobilinogen Negative (Negative) Ur Leukocyte Esterase Trace H (Negative) Urine WBC (Auto) 6-10 H (0-5) /hpf Urine RBC (Auto) 0-2 (0-2) /hpf U Hyaline Cast (Auto) 0-2 (0-2) /lpf U Epithel Cells (Auto) 3-5 H (0-2) /hpf Urine Bacteria (Auto) None Seen (None Seen) Diagnostic Findings Hip X-Ray 12/04/23 00:00 FL hip RT 1V CLINICAL HISTORY: Closed reduction of right hip. COMPARISON STUDY: Right hip CT 12/03/2023. FLUOROSCOPY TIME: 3.9 seconds FLUOROSCOPY IMAGES: 1 Ka,r: 1.0 mGy FINDINGS: Status post reduction of the dislocated right femoral prosthesis. Alignment appears anatomic on this single spot image. IMPRESSION: Fluoroscopic assistance as above. ACT 112: Negative or not required by law. Electronically signed by: Fox Mckeon M.D. 12/04/2023 4:23 PM
--- NOTE | 2023-12-05 10:50 | Hospitalist Progress Note ---
Date of Service December 05, 2023 Assessment & Plan (1) Dislocation of hip prosthesis: (2) Hip hematoma, right: Plan: Recently admitted from November 17 to November 23, 2023 for right hip fracture for which she underwent right hip arthroplasty on November 19, 2023. Patient was discharged to [facility] and came back home 3 days ago. On presentation to the ED, patient is normotensive, afebrile and saturating well at 2 L of oxygen Mild leukocytosis on admission trending down, likely reactive. UA unremarkable and hence will discontinue empiric ceftriaxone. H&H overall stable around 10 CT of the hip showed superior dislocation of femoral component of right hip arthroplasty. Large complex fluid collection consistent with subacute to acute to subacute hematoma adjacent of right hip arthroplasty. S/p closed reduction of right total hip arthroplasty dislocation by Dr Leahy 12/04/23 T scope brace should be in place at all times for 6 weeks PT OT eval. Continue pain management, DVT ppx, bowel regimen. Paroxysmal atrial fibrillation-EKG reviewed; normal sinus rhythm. Continue Toprol. Resume eliquis COPD- continue home inhalers. No exacerbation Anxiety-on BuSpar, Cymbalta History of TIA-on aspirin, statin DVT prophylaxis-Eliquis Disposition-pending PT OT eval. Time spent approximately 35 minutes Admission and Anticipated Discharge Date Admission Date: December 03, 2023 Subjective Patient was seen and examined at bedside. She feels fine. Pain is controlled. No fever, chills, chest pain, shortness of breath, nausea or vomiting. Tolerating diet well. Passing gas, no BM yet. Review of Systems Review of Systems: All systems reviewed & are unremarkable except as noted in Subjective Physical Exam Physical Exam: General: Lying comfortably in bed, not in distress, on room air HEENT: EOMI, DENISE, MMM Chest: Clear breath sounds bilaterally, no wheezes or crackles CVS: Regular rate and rhythm, normal heart sounds, no murmur Abdomen: Soft, non tender, not distended, normal bowel sounds Neuro: Awake, alert, oriented, conversing well, non focal Extremities: No cyanosis, clubbing or edema MSK: T scope brace in place Results & Data Results & Data Vital Signs (Past 12 Hours) Vital Signs Temp Pulse Pulse Resp BP Pulse Ox O2 Del Method 12/05/23 08:31 37.0 C 88 18 126/72 93 Room Air 12/05/23 07:33 82 17 96 Nasal Cannula 12/05/23 02:30 36.4 C L 80 18 129/55 L 96 Nasal Cannula 12/04/23 23:39 88 12/04/23 23:38 36.7 C 83 24 132/63 97 Nasal Cannula O2 Flow Rate 12/05/23 08:31 12/05/23 07:33 2 12/05/23 02:30 2.0 12/04/23 23:39 12/04/23 23:38 2.0 Laboratory Results Short CBC 12/05/23 Range/Units 05:48 WBC 9.54 (4.8-10.8) K/ul Hgb 9.4 L (12.0-16.0) g/dl Hct 29.5 L (37.0-47.0) % Plt Count 428 H (130-400) K/uL BMP 12/05/23 05:48 Sodium 140 Potassium 4.0 Chloride 108 H Carbon Dioxide 28 BUN 7 Creatinine 0.55 L Glucose 104 H Calcium 8.5 L Urine 12/05/23 Range/Units Unknown Urine Color Yellow Urine Appearance Clear (Clear) Urine pH 6.5 (4.5-7.5) Ur Specific [place] 1.012 (1.000-1.030) Urine Protein Negative (Negative) Urine Glucose (UA) Negative (Negative)
[2023-12-05] MEDS: APIXABAN 2.5 MG TAB PO SCH (11:35)
[2023-12-05] MEDS: ACETAMINOPHEN 325 MG TAB PO PRN (20:13)
[2023-12-05] MEDS: MELATONIN 3 MG TAB PO PRN (20:50)
[2023-12-05] MEDS: tiZANidine HCL 4 MG TABLET PO STA (23:38)
[2023-12-06 06:35] LABS: Hematocrit (blood only) 29.1 % (37.0-47.0); Hemoglobin 9.2 g/dl (12.0-16.0); Mean Corpuscular Hemoglobin 29.4 pg (25.0-34.0); Mean Corpuscular Hgb Conc 31.6 g/dL (32.0-36.0); Mean Platelet Volume 8.5 fL (9.4-12.4); Platelet Count 391 K/uL (130-400); RDW Coefficient of Variation 14.3 % (11.5-14.5); Red Blood Count 3.13 M/uL (4.20-5.40); White Blood Count 7.25 K/ul (4.8-10.8)
[2023-12-06 07:05] LABS: BUN Creatinine Ratio 15.4 (10-20); Calcium 8.6 mg/dl (8.6-10.3); Est GFR (African American) 108.3 ml/min; Est GFR (Non-African American) 93.5 ml/min; Potassium 4.1 mmol/L (3.5-5.1)
[2023-12-06] MEDS: traMADol HCL 50 MG TABLET PO PRN (08:10)
[2023-12-06] MEDS: CYCLOBENZAPRINE HCL 10 MG TAB PO STA (10:32)
--- NOTE | 2023-12-06 11:18 | Orthopedic Progress Note ---
Date of Service December 06, 2023 Assessment & Plan (1) Dislocation of hip prosthesis: Plan: Patient is postop day 2 status post a closed reduction of right total hip arthroplasty dislocation Patient was transition from right knee immobilizer to a hip T scope brace that was fitted and adjusted to patient today. This is locked at 70 degrees flexion. T scope brace should be in place at all times for 6 weeks. Patient and I discussed hip precautions including wearing the brace to avoid flexion of the hip past 90 degrees, internal rotation and crossing her legs. At this time she does not have an abduction pillow and recommending bedside pillow be placed in between her legs when she is supine. Will discuss with Dr. Castillo if he would like her to have abduction pillow this will be ordered. Zipline removed yesterday, Steri-Strips in place Patient will continue under primary care team for DVT prophylaxis and pain control. May participate in PT and OT with T scope brace weightbearing as tolerated with walker assistance. Patient had imaging of right knee along with tibia and fibula on 12/02 negative for any fractures per radiologist. Will continue to monitor symptoms persist will repeat imaging. Okay from orthopedic standpoint for discharge. Follow-up as scheduled. Admission and Anticipated Discharge Date Admission Date: December 03, 2023 Subjective Doing well. Resting in bed. Denies any significant pain in her right hip. She describes it as a mild achiness which is expected. Hip brace in place. She has been out of bed with physical therapy. She is looking into getting into rehab and feels that [facility] be a good better place for her than a intermediate facility. Physical Exam Musculoskeletal: Exam of her right lower extremity: No distal edema on the right leg. Nontender with palpation of the right ankle or right knee. No a knee effusion. Previous incision is healed. Strength of her right ankle is 5/5 with full range of motion. Distal pulses are 1+. Sensation is normal. Hip brace is in place. The right hip incision Zipline was removed and Steri-Strips have been applied. No drainage. No underlying seroma or hematoma. Incision is healed nicely. Results & Data Vital Signs (Past 12 Hours) Vital Signs Temp Pulse Resp BP Pulse Ox O2 Del Method 12/06/23 11:07 83 16 95 Room Air 12/06/23 11:03 37.1 C 79 17 117/53 L 93 Room Air 12/06/23 07:50 37.0 C 95 H 20 114/68 93 Room Air 12/06/23 07:07 82 16 96 Room Air 12/06/23 03:10 37.1 C 85 18 141/59 H 95 Room Air Laboratory Results 12/06/23 12/05/23 Range/Units 05:51 05:48 WBC 7.25 (4.8-10.8) K/ul RBC 3.13 L (4.20-5.40) M/uL Hgb 9.2 L (12.0-16.0) g/dl Hct 29.1 L (37.0-47.0) % MCV 93.0 (80.0-100.0) fL MCH 29.4 (25.0-34.0) pg MCHC 31.6 L (32.0-36.0) g/dL RDW Std Deviation 48.0 H (36.4-46.3) fL RDW Coeff of Real 14.3 (11.5-14.5) % Plt Count 391 (130-400) K/uL MPV 8.5 L (9.4-12.4) fL Sodium 141 (136-145) mmol/L Potassium 4.1 (3.5-5.1) mmol/L Chloride 107 (98-107) mmol/L Carbon Dioxide 28 (21-32) mmol/L Anion Gap 6 (3-11) BUN 8 (6-23) mg/dl Creatinine 0.52 L (0.6-1.2) mg/dl Est Cr Clr Drug Dosing 88.0 ml/min Est GFR ( Amer) 108.3 ml/min Est GFR (Non-Af Amer) 93.5 ml/min BUN/Creatinine Ratio 15.4 (10-20) Glucose 104 H (70-99(Fasting)) mg/dl Calcium 8.6 (8.6-10.3) mg/dl Magnesium 2.0 (1.7-2.4) mg/dl
[2023-12-06] MEDS ORDERED: ALBUT/IPRATROP 3MG/0.5MG NEB 3 ML VIAL NEB PRN (12:37)
--- NOTE | 2023-12-06 12:58 | Hospitalist Progress Note ---
Date of Service December 06, 2023 Assessment & Plan (1) Dislocation of hip prosthesis: (2) Hip hematoma, right: Plan: Ms. Easley is a 73 year old woman with history of 73-year-old female with history of hypertension, PAF, PE, TIA, COPD, and recent right hip fracture s/p arthroplasty on 11/19/2023 who was admitted once more on 12/02 after mechanical fall with superior dislocation of right hip arthroplasty. CT of the hip showed superior dislocation of femoral component of right hip arthroplasty. Large complex fluid collection consistent with subacute to acute to subacute hematoma adjacent of right hip arthroplasty. #Superior dislocation of arthroplasty now s/p closed reduction of right total hip arthroplasty dislocation by Dr Leahy 12/04/23 -T scope brace should be in place at all times for 6 weeks, currently locked at 70 degrees flexion Ortho following and discussed wearing the brace to avoid flexion of the hip past 90 degrees, internal rotation and crossing her legs -Recommended abduction pillow and pillow between legs while supine Steristrips in place PT OT eval with T Scope brace, WBAT with walker Continue pain management, DVT ppx, bowel regimen. Okay from orthopedic standpoint for discharge. Follow-up as scheduled. #Acute on chronic anemia, 2/2 post-op losses -Baseline prior to fracture on 11/17 appears to be 12, hgb stable at 9-10 Continue to monitor CBC since resumption of Eliquis #Paroxysmal atrial fibrillation EKG reviewed; normal sinus rhythm. Continue Toprol. Continue eliquis #COPD continue home inhalers. No exacerbation #Anxiety on BuSpar, Cymbalta #History of TIA on aspirin, statin DVT prophylaxis-Eliquis Disposition-pending PT OT eval: Family requesting [facility], PT recommneded acute inpt rehab Time spent approximately 35 minutes Admission and Anticipated Discharge Date Admission Date: December 03, 2023 Subjective No acute events overnight Patient evaluated in bedside chair Reports increase in muscle spasms, which was helped with tizanidine last evening--states the muscles around her hip and low back seem to tighten and cause discomfort especially with brace Otherwise eating well and denies new symptoms at this time Physical Exam Constitutional: WD/WN, vitals as above Respiratory: normal respiratory effort, lungs clear to auscultation Cardiovascular: RRR, no murmur, no edema Musculoskeletal: brace in place over right hip, no overlying erythema along exposed surgical excision Results & Data Results & Data Vital Signs (Past 12 Hours) Vital Signs Temp Pulse Resp BP Pulse Ox O2 Del Method 12/06/23 11:07 83 16 95 Room Air 12/06/23 11:03 37.1 C 79 17 117/53 L 93 Room Air 12/06/23 07:50 37.0 C 95 H 20 114/68 93 Room Air 12/06/23 07:07 82 16 96 Room Air 12/06/23 03:10 37.1 C 85 18 141/59 H 95 Room Air Laboratory Results Short CBC 12/06/23 Range/Units 05:51 WBC 7.25 (4.8-10.8) K/ul Hgb 9.2 L (12.0-16.0) g/dl Hct 29.1 L (37.0-47.0) % Plt Count 391 (130-400) K/uL BMP 12/06/23 05:51 Sodium 141 Potassium 4.1 Chloride 107 Carbon Dioxide 28 BUN 8 Creatinine 0.52 L Glucose 104 H Calcium 8.6 Medications Administered Home Medications Medication Instructions Recorded Confirmed Last Taken alendronate 70 mg tablet 70 mg PO WK 01/13/23 12/03/23 11/12/23 acetaminophen 325 mg tablet 650 mg (2 x 325 mg) PO Q6H #30 tabs 11/23/23 12/03/23 Unknown albuterol sulfate 90 mcg/actuation 2 puff inhalation Q6H PRN 11/23/23 12/03/23 Unknown aerosol inhaler (Ventolin HFA) Shortness Of Breath #6.7 grams apixaban 2.5 mg tablet (Eliquis) 2.5 mg PO BID #60 tabs 11/23/23 12/03/23 Unknown aspirin 81 mg tablet,delayed 81 mg PO QAM #30 tabs 11/23/23 12/03/23 Unknown release atorvastatin 40 mg tablet 40 mg PO QAM #60 tabs 11/23/23 12/03/23 Unknown buspirone 10 mg tablet 10 mg PO BID #60 tabs 11/23/23 12/03/23 Unknown calcium carbonate (Calcium 600) 600 mg PO QAM #60 tabs 11/23/23 12/03/23 Unknown cholecalciferol (vitamin D3) 50 50 mcg PO QAM #30 caps 11/23/23 12/03/23 Unknown mcg (2,000 unit) capsule (Vitamin D3) cyanocobalamin (vitamin B-12) 1,000 mcg PO QAM #30 tabs 11/23/23 12/03/23 Unknown 1,000 mcg tablet (Vitamin B-12) duloxetine 60 mg capsule,delayed 60 mg PO HS #60 caps 11/23/23 12/03/23 Unknown release fluticasone furoate 200 1 inh inhalation QAM #60 ea 11/23/23 12/03/23 Unknown mcg-vilanterol 25 mcg/dose inhalation powder (Breo Ellipta) furosemide 40 mg tablet 40 mg PO DAILY #30 tabs 11/23/23 12/03/23 Unknown gabapentin 300 mg capsule 300 mg PO TID #90 caps 11/23/23 12/03/23 Unknown guaifenesin 600 mg tablet, 600 mg PO BID PRN Congestion #60 11/23/23 12/03/23 Unknown extended release 12 hr (Mucinex) tabs hydroxyzine HCl 10 mg tablet 10 mg PO TID PRN anxiety #10 tabs 11/23/23 12/03/23 Unknown metoprolol succinate 50 mg 50 mg PO QAM #60 tabs 11/23/23 12/03/23 Unknown tablet,extended release 24 hr (Toprol XL) pantoprazole 40 mg tablet,delayed 40 mg PO QAM #30 tabs 11/23/23 12/03/23 Unknown release polyethylene glycol 3350 17 gram 17 g PO DAILY #30 ea 11/23/23 12/03/23 Unknown oral powder packet (Miralax) potassium chloride 10 mEq 10 meq PO QAM #30 tabs 11/23/23 12/03/23 Unknown tablet,extended release sennosides 8.6 mg-docusate sodium 1 tab PO BID #60 tabs 11/23/23 12/03/23 Unknown 50 mg tablet (Senokot-S) albuterol sulfate 0.63 mg/3 mL 0.63 mg continuous nebulization 12/03/23 12/03/23 Unknown solution for nebulization [facility] ondansetron 4 mg disintegrating 4 mg PO Q8H PRN nausea and vomiting 12/03/23 12/03/23 Unknown tablet tramadol 50 mg tablet 50 mg PO Q6H PRN Pain 12/03/23 12/03/23 Unknown umeclidinium 62.5 mcg/actuation 1 inh inhalation DAILY 12/03/23 12/03/23 Unknown blister powder for inhalation (Incruse Ellipta) Active Medications Generic Name Dose Route Start Last Admin Trade Name Freq PRN Reason Stop Dose Admin Acetaminophen 650 mg 12/03/23 21:41 12/05/23 20:13 Acetaminophen 325 Mg Tab PO 01/02/24 21:40 650 mg Q4H PRN Administration Pain or Fever Apixaban 2.5 mg 12/05/23 11:00 12/06/23 08:13 Apixaban 2.5 Mg Tab PO 01/04/24 10:59 2.5 mg BID RAFY Administration Atorvastatin Calcium 40 mg 12/04/23 09:00 12/06/23 08:13 Atorvastatin 40 Mg Tab PO 01/03/24 08:59 40 mg QAM RAFY Administration Buspirone HCl 10 mg 12/03/23 22:00 12/06/23 08:13 Buspirone 5 Mg Tab PO 01/02/24 21:59 10 mg BID RAFY Administration Calcium Carbonate 1 tab 12/04/23 09:00 12/06/23 08:13 Calcium Carbonate 1250mg Tab PO 01/03/24 08:59 1 tab QAM RAFY Administration Cyanocobalamin 1,000 mcg 12/04/23 09:00 12/06/23 08:13 Cyanocobalamin (B-12) 500 Mcg Tablet PO 01/03/24 08:59 1,000 mcg QAM RAFY Administration Duloxetine HCl 60 mg 12/03/23 22:00 12/05/23 20:14 Duloxetine Hcl 60 Mg Cap PO 01/02/24 21:59 60 mg HS RAFY Administration Fluticasone/Vilanterol 1 puffs 12/05/23 09:00 12/06/23 08:12 Fluticasone/Vilanterol 200/25mcg 14 Puffs/Inhaler INH 01/04/24 08:59 1 puffs DAILY RAFY Administration Acetaminophen 1,000 mg in 100 mls @ 400 mls/hr 12/04/23 02:00 12/06/23 11:01 Ofirmev IV 12/07/23 01:59 Infused Q8H RAFY Infusion Lactated Ringer's 1,000 mls @ 0 mls/hr 12/04/23 14:45 12/04/23 15:47 Lr IV 01/03/24 14:44 Infused .Q0M RAFY Infusion KVO Melatonin 3 mg 12/05/23 20:33 12/05/23 20:50 Melatonin 3 Mg Tab PO 01/04/24 20:32 3 mg HS PRN Administration Sleep Metoprolol Succinate 50 mg 12/04/23 09:00 12/06/23 08:13 Metoprolol Succ 50mg Ext Rel Tab PO 01/03/24 08:59 50 mg QAM RAFY Administration Morphine Sulfate 2 mg 12/03/23 19:55 12/04/23 19:47 Morphine Sulfate 2 Mg/Ml Carp IV 12/17/23 19:54 2 mg Q3H PRN Administration Pain Pantoprazole Sodium 40 mg 12/04/23 09:00 12/06/23 08:13 Pantoprazole 40 Mg Tab PO 01/03/24 08:59 40 mg QAM RAFY Administration Tramadol HCl 25 mg 12/03/23 22:02 12/06/23 08:10 Tramadol Hcl 50 Mg Tablet PO 01/02/24 22:01 25 mg Q4H PRN Administration Pain Umeclidinium/Vilanterol 1 puffs 12/05/23 09:00 12/06/23 08:12 Umeclidinium/Vilanterol 62.5/25mcg 7 Puffs/Inhaler INH 01/04/24 08:59 1 puffs DAILY RAFY Administration Vitamin D 50 mcg 12/04/23 09:00 12/06/23 08:13 Cholecalciferol 25 Mcg (1000 Units) Tab PO 01/03/24 08:59 50 mcg QAM RAFY Administration
[2023-12-06] MEDS: CYCLOBENZAPRINE HCL 10 MG TAB PO PRN (20:12)
[2023-12-07 07:45] LABS: Hematocrit (blood only) 29.9 % (37.0-47.0); Hemoglobin 9.6 g/dl (12.0-16.0); Mean Corpuscular Hemoglobin 29.9 pg (25.0-34.0); Mean Corpuscular Hgb Conc 32.1 g/dL (32.0-36.0); Mean Corpuscular Volume 93.1 fL (80.0-100.0); Mean Platelet Volume 8.7 fL (9.4-12.4); Platelet Count 396 K/uL (130-400); RDW Coefficient of Variation 14.1 % (11.5-14.5); RDW Standard Deviation 47.9 fL (36.4-46.3); Red Blood Count 3.21 M/uL (4.20-5.40)
[2023-12-07 08:00] LABS: BUN Creatinine Ratio 21.2 (10-20); Calcium 8.7 mg/dl (8.6-10.3); Creatinine Clr Calc Pharmacy 88.7 ml/min; Est GFR (African American) 108.3 ml/min; Est GFR (Non-African American) 93.5 ml/min; Magnesium 1.9 mg/dl (1.7-2.4); Phosphorus 3.3 mg/dl (2.5-4.9)
--- NOTE | 2023-12-07 12:07 | Hospitalist Progress Note ---
Date of Service December 07, 2023 Assessment & Plan (1) Dislocation of hip prosthesis: (2) Hip hematoma, right: Plan: Ms. Easley is a 73 year old woman with history of Lupus anticoagulant positive c/b PE, hypertension, PAF, TIA, COPD, and recent right hip fracture s/p arthroplasty on 11/19/2023 who was admitted once more on 12/02 after mechanical fall with superior dislocation of right hip arthroplasty. CT of the hip showed superior dislocation of femoral component of right hip arthroplasty. Large complex fluid collection consistent with subacute to acute to subacute hematoma adjacent of right hip arthroplasty. Ms. Easley is a patient that has multiple need that cannot be met at #Superior dislocation of arthroplasty now s/p closed reduction of right total hip arthroplasty dislocation by Dr Leahy 12/04/23 -T scope brace should be in place at all times for 6 weeks, currently locked at 70 degrees flexion Ortho following and discussed wearing the brace to avoid flexion of the hip past 90 degrees, internal rotation and crossing her legs -Recommended abduction pillow and pillow between legs while supine Steristrips in place PT OT eval with T Scope brace, WBAT with walker Continue pain management, DVT ppx, bowel regimen. Okay from orthopedic standpoint for discharge. Follow-up as scheduled. #Acute on chronic anemia, 2/2 post-op losses -Baseline prior to fracture on 11/17 appears to be 12, hgb stable at 9-10 Continue to monitor CBC since resumption of Eliquis #Paroxysmal atrial fibrillation EKG reviewed; normal sinus rhythm. Continue Toprol. Continue eliquis #COPD continue home inhalers. No exacerbation #Anxiety on BuSpar, Cymbalta #History of TIA on aspirin, statin DVT prophylaxis-Eliquis Disposition-pending PT OT eval: Family requesting [facility], PT recommneded acute inpt rehab Time spent approximately 35 minutes Admission and Anticipated Discharge Date Admission Date: December 03, 2023 Results & Data Results & Data Vital Signs (Past 12 Hours) Vital Signs Temp Pulse Pulse Resp BP Pulse Ox O2 Del Method 12/07/23 10:38 36.8 C 81 20 128/68 93 Room Air 12/07/23 07:53 36.9 C 82 19 124/59 L 96 Room Air 12/07/23 03:42 36.9 C 79 18 141/63 H 93 Room Air 12/07/23 00:14 81
--- NOTE | 2023-12-07 15:46 | Discharge Summary ---
Discharge Summary Date of Service December 07, 2023 Notes For Next Care Provider Please repeat labs in 1 week: CBC and BMP Medication Changes From Visit Flexeril 5mg q8h for spasms Admission HPI Per Admitting Provider History obtained from chart review and interview with the, patient's son at bedside Past medical history of hypertension, PE, TIA, COPD Recently admitted from November 17 to November 23, 2023 for right hip fracture for which she underwent right hip arthroplasty on November 19, 2023. She developed delirium after the surgery; no other significant postoperative events. Patient was discharged to [facility]. Patient came back home 2 days ago. Patient had a mechanical fall after slipping in the bathroom and was brought to the hospital here. Patient reports significant pain on her hip at the present time; unable to provide more information His son report UTI-like symptoms for several days. Her last dose of Eliquis was today morning On presentation to the ED, patient is normotensive, afebrile and saturating well at 2 L of oxygen CBC reveals leukocytosis. Hemoglobin of 10.8; slight improvement from discharge. CT of the hip showed superior dislocation of femoral component of right hip arthroplasty. Large complex fluid collection consistent with subacute to acute to subacute hematoma adjacent of right hip arthroplasty. ED physician talked with orthopedic on-call(Dr. Leahy) who recommended admission to the hospital; n.p.o. from midnight. Patient is referred for admission to the hospitalist. Admission Exam Per Admitting Provider Constitutional: Awake, oriented to self and place. Insignificant distress due to pain Respiratory: Bilateral vesicular breath sound Cardiovascular: RRR, no murmur, no edema Vessels: no JVD or carotid bruit Chest: normal inspection of chest Abdomen: normal bowel sounds, soft, nontender, no hepatosplenomegaly Musculoskeletal: Right leg shorter, significant deformity on right hip. Skin: no rashes, warm and dry normal turgor Neurologic: PERRL, EOMI, accommodation nl, no face palsy, no dysarthria CN's II- XI intact bilaterally and moves all extremities Psychiatric: A+Ox3, euthymic affect Principal Dx & Hospital Course #1 = Principal Diagnosis (1) Dislocation of hip prosthesis: (2) Hip hematoma, right: Plan Ms. Easley is a 73 year old woman with history of Lupus anticoagulant positive c/b PE, hypertension, PAF, TIA, COPD, and recent right hip fracture s/p arthroplasty on 11/19/2023 who was admitted once more on 12/02 after mechanical fall with superior dislocation of right hip arthroplasty. CT of the hip showed superior dislocation of femoral component of right hip arthroplasty. Large complex fluid collection consistent with subacute to acute to subacute hematoma adjacent of right hip arthroplasty. Ms. Easley is a patient that has multiple need that cannot be met at [facility], including presence of a T brace. Patient also with complex pain, noted by spasms which were improved with flexeril 35 minutes spent with coordinating P2P call for approval to [facility], as well as 35 minutes for discharge preprations. #Superior dislocation of arthroplasty now s/p closed reduction of right total hip arthroplasty dislocation by Dr Leahy 12/04/23 -T scope brace should be in place at all times for 6 weeks, currently locked at 70 degrees flexion Ortho following and discussed wearing the brace to avoid flexion of the hip past 90 degrees, internal rotation and crossing her legs -Recommended abduction pillow and pillow between legs while supine Steristrips in place PT OT eval with T Scope brace, WBAT with walker: plan for acute inpatient rehab Continue pain management, DVT ppx, bowel regimen. Okay from orthopedic standpoint for discharge. Follow-up as scheduled. #Acute on chronic anemia, 2/2 post-op losses -Baseline prior to fracture on 11/17 appears to be 12, hgb stable at 9-10 Continue to monitor CBC since resumption of Eliquis -Stable upon discharge at 9.6 #Paroxysmal atrial fibrillation EKG reviewed; normal sinus rhythm. Continue Toprol. Continue eliquis #COPD continue home inhalers. No exacerbation #Anxiety on BuSpar, Cymbalta #History of TIA on aspirin, statin Discharge Exam Constitutional WD/WN, vitals as above Respiratory normal respiratory effort, lungs clear to auscultation Cardiovascular RRR, no murmur, no edema Gastrointestinal (Abdomen) normal bowel sounds, soft, nontender, no hepatosplenomegaly Musculoskeletal t brace in place on right hip Updated Medication List Medication Instructions Recorded Confirmed Type alendronate 70 mg tablet 70 mg PO WK 01/13/23 12/03/23 History acetaminophen 325 mg tablet 650 mg (2 x 325 mg) PO Q6H #30 tabs 11/23/23 12/03/23 Rx albuterol sulfate 90 mcg/actuation 2 puff inhalation Q6H PRN 11/23/23 12/03/23 Rx aerosol inhaler (Ventolin HFA) Shortness Of Breath #6.7 grams apixaban 2.5 mg tablet (Eliquis) 2.5 mg PO BID #60 tabs 11/23/23 12/03/23 Rx aspirin 81 mg tablet,delayed 81 mg PO QAM #30 tabs 11/23/23 12/03/23 Rx release atorvastatin 40 mg tablet 40 mg PO QAM #60 tabs 11/23/23 12/03/23 Rx buspirone 10 mg tablet 10 mg PO BID #60 tabs 11/23/23 12/03/23 Rx calcium carbonate (Calcium 600) 600 mg PO QAM #60 tabs 11/23/23 12/03/23 Rx cholecalciferol (vitamin D3) 50 50 mcg PO QAM #30 caps 11/23/23 12/03/23 Rx mcg (2,000 unit) capsule (Vitamin D3) cyanocobalamin (vitamin B-12) 1,000 mcg PO QAM #30 tabs 11/23/23 12/03/23 Rx 1,000 mcg tablet (Vitamin B-12) duloxetine 60 mg capsule,delayed 60 mg PO HS #60 caps 11/23/23 12/03/23 Rx release fluticasone furoate 200 1 inh inhalation QAM #60 ea 11/23/23 12/03/23 Rx mcg-vilanterol 25 mcg/dose inhalation powder (Breo Ellipta) furosemide 40 mg tablet 40 mg PO DAILY #30 tabs 11/23/23 12/03/23 Rx gabapentin 300 mg capsule 300 mg PO TID #90 caps 11/23/23 12/03/23 Rx guaifenesin 600 mg tablet, 600 mg PO BID PRN Congestion #60 11/23/23 12/03/23 Rx extended release 12 hr (Mucinex) tabs hydroxyzine HCl 10 mg tablet 10 mg PO TID PRN anxiety #10 tabs 11/23/23 12/03/23 Rx metoprolol succinate 50 mg 50 mg PO QAM #60 tabs 11/23/23 12/03/23 Rx tablet,extended release 24 hr (Toprol XL) pantoprazole 40 mg tablet,delayed 40 mg PO QAM #30 tabs 11/23/23 12/03/23 Rx release polyethylene glycol 3350 17 gram 17 g PO DAILY #30 ea 11/23/23 12/03/23 Rx oral powder packet (Miralax) potassium chloride 10 mEq 10 meq PO QAM #30 tabs 11/23/23 12/03/23 Rx tablet,extended release sennosides 8.6 mg-docusate sodium 1 tab PO BID #60 tabs 11/23/23 12/03/23 Rx 50 mg tablet (Senokot-S) albuterol sulfate 0.63 mg/3 mL 0.63 mg continuous nebulization 12/03/23 12/03/23 History solution for nebulization [facility] ondansetron 4 mg disintegrating 4 mg PO Q8H PRN nausea and vomiting 12/03/23 12/03/23 History tablet tramadol 50 mg tablet 50 mg PO Q6H PRN Pain 12/03/23 12/03/23 History umeclidinium 62.5 mcg/actuation 1 inh inhalation DAILY 12/03/23 12/03/23 History blister powder for inhalation (Incruse Ellipta) cyclobenzaprine 10 mg tablet 10 mg PO Q8H PRN muscle spasm #30 12/07/23 Rx tabs Hospital Stay Data Consultations 12/03/23 19:19 ED Decision to Admit Stat 12/03/23 19:59 Consult Orthopedic Surgery Routine 12/05/23 10:30 Consult Case Management Ambulatory ONCE Procedures Performed Operation Date: 12/04/23 08:20 Actual Procedures p Right Hip Closed Reduction Status post Right Hip Total Arthroplasty(Right) - Alexei Leahy, Diagnostic Imagining Performed 12/03/23 16:44 CT cervical spine wo con Stat CT head/brain wo con Stat 12/03/23 17:34 CT hip RT wo con Stat 12/04/23 FL hip RT 1V Routine Pending Results Patient Have Any Pending Studies at Discharge: No Discharge Instructions Given to Patient (Per Discharging Provider) You were admitted after fall and found to have right hip dislocation of your recently replaced hip. This was repaired by Dr. Leahy. You were placed in a T brace--This is locked at 70 degrees flexion. T scope brace should be in place at all times for 6 weeks. Please continue hip precautions including wearing the brace to avoid flexion of the hip past 90 degrees, internal rotation and crossing your legs. Please use abduction pillow between her legs when you lay down. Please have repeat lab work in 1 week: CBC and BMP to monitor blood level and kidney functions Please resume all home medications as prescribed. The only new medication is Flexeril 5mg for muscle spasms, please take 1 every 8 hours as needed. Total Time Total Time Spent Total Time Spent (In Minutes): 70
== END 2023-12-07 17:53 | DRG 560 ==
LOC: ED 15:55 → SUATTDRO 20:05 → 2E 20:05

== ENCOUNTER 2024-12-07 15:29 | Inpatient (IN) ==
--- OUTSIDE RECORDS SUMMARY | 2024-12-07 15:39 | External Medical Summary | Summary of Care ---
Author Name Unknown Organization [facility] Address [address] [place] [address] Phone [phone] Care Team Providers Care [employer] Name Role Phone Perfecto Sauceda DO Primary Care Provider [phone] Reason for Visit * Reason Onset Date Comments Cough 11/28/2024 Information 11/28/202411/28 Encounter Details Date Type Department Care Team (Late st Contact Info) Description 11/28/2024 Telephone Family Practice [address], [place] [address] [place] [address] Perfecto Sauceda DO [address] [place] [address] Cough; Information (11/28) Allergies Active Allergy Reactions Criticality Noted Date Comments Barium Sulfate Diarrhea,Nausea/vomi ting,Rash 09/17/2024 Iodinated Contrast Media Hives Low 09/16/2024 Oxycodone High 11/20/2023 Other Reaction(s): confusion Vancomycin Rash Medium 04/19/2024 documented as of this encounter (statuses as of 11/28/2024) Medications Cholecalciferol (VITAMIN D) 2000 UNITS Tablet Take 2,000 Units by mouth daily. Active Calcium 600 MG Tablet Take 1 Tablet by mouth in the morning. 30 Tab 10/13/19 19 Active Full Kit Nebulizer Set Use with Nebulizer Medication every 4 hours as directed. Dx Code: J44.9 1 Each 3 09/18/19 24 Active Albuterol Sulfate 0.63 MG/3ML Inhalation Nebulization Solution (Accuneb) Inhale 1 Vial via nebulizer every 6 hours as needed for Wheezing or Shortness of Breath. 1080 mL 3 10/05/2023 3:05 PM EST 10/04/19 24 Active Fluticasone Furoate-Vilanterol 200-25 MCG/ACT Inhalation Aerosol Powder Breath Activated (BREO ellipta) Inhale 1 Puff by mouth in the morning. 180 Blister Dosing Unit 3 08/29/2024 8:43 AM EST 10/04/19 24 Active Vitamin B-12 5000 MCG Oral Tablet Disintegrating Take 1 Tablet by mouth in the morning. Active Atorvastatin Calcium 40 MG Oral Tablet (Lipitor)Indicatio ns:Hyperlipidemia, unspecified hyperlipidemia type TAKE 1 TABLET BY MOUTH DAILY 90 Tablet 3 11/04/2024 12:05 PM EDT 05/11/20 24 Active Potassium Chloride ER 10 MEQ Oral Tablet Extended ReleaseIndications :Bilateral leg edema Take 1 Tablet by mouth in the morning. 100 Tablet 1 09/19/2024 2:59 PM EST 06/10/20 24 Active busPIRone HCl 10 MG Oral Tablet (Buspar)Indication s:Anxiety state Take 1 Tablet by mouth in the morning and 1 Tablet before bedtime. 200 Tablet 5 09/19/2024 2:59 PM EST 06/10/20 24 Active Furosemide 40 MG Oral Tablet (Lasix)Indications :Bilateral leg edema Take 1 Tablet by mouth in the morning. 100 Tablet 3 10/01/2024 1:21 PM EST 06/21/20 24 Active DULoxetine HCl 60 MG Oral Capsule Delayed Release Particles (Cymbalta) TAKE ONE CAPSULE BY MOUTH EVERY DAY. DO NOT CUT, CRUSH OR CHEW 100 Capsule 1 10/16/2024 12:32 PM EST 07/08/20 24 Active Metoprolol Succinate ER 50 MG Oral Tablet Extended Release 24 Hour (toPROL XL)Indications:Ess ential hypertension with goal blood pressure less than 140/90 TAKE ONE TABLET BY MOUTH EVERY DAY IN THE MORNING 100 Tablet 2 10/18/2024 5:56 PM EST 07/08/20 24 025 Active tiZANidine HCl 4 MG Oral Tablet (Zanaflex)Indicati ons:Spasm of muscle,Chronic midline thoracic back pain Take 1 Tablet by mouth 2 times a day. 60 Tablet 3 07/18/20 24 Active Albuterol Sulfate HFA 108 (90 Base) MCG/ACT Inhalation Aerosol Solution Inhale 2 Puffs by mouth every 6 hours as needed (COPD). 18 g 3 08/16/19 25 Active Nystatin 176514 UNIT/ML Mouth/Throat SuspensionIndicati ons:Thrush Swish and swallow 5 mL in the morning and 5 mL at noon and 5 mL in the evening and 5 mL before bedtime. For thrush.. 240 mL 1 08/20/19 25 Active Pantoprazole Sodium 40 MG Oral Tablet Delayed Release (Protonix)Indicati ons:Gastroesophage al reflux disease without esophagitis Take 1 Tablet by mouth in the morning. 100 Tablet 3 08/29/2024 8:43 AM EST 08/26/19 25 Active Spiriva Respimat 1.25 MCG/ACT Inhalation Aerosol Solution (Tiotropium [place] Monohydrate)Indica tions:COPD, group A, by GOLD 2017 classification ([facility]) INHALE 2 PUFFS BY MOUTH IN THE MORNING 12 g 1 09/24/2024 2:15 PM EST 09/19/19 25 Active Docusate Sodium 100 MG Oral Capsule (Colace) Take 1 Capsule by mouth in the morning and 1 Capsule before bedtime. 09/25/19 25 Active Lactulose 10 GM/15ML Oral Solution (Constulose)Indica tions:Constipation Take 30 mL by mouth in the morning and 30 mL before bedtime. severe constipation. 437 mL 5 10/03/19 25 Active Apixaban 2.5 MG Oral Tablet (Eliquis) Take 1 Tablet by mouth in the morning and 1 Tablet before bedtime. 200 Tablet 1 10/17/2024 12:11 PM EST 10/11/19 25 Active Ondansetron HCl 4 MG Oral TabletIndications: Nausea and vomiting, unspecified vomiting type Take 1 Tablet by mouth every 6 hours as needed for Nausea. 60 Tablet 3 11/06/19 25 Active traZODone HCl 50 MG Oral Tablet (Desyrel)Indicatio ns:Primary insomnia Take 1 Tablet by mouth at bedtime. 30 Tablet 5 11/13/19 25 Active traMADol HCl 50 MG Oral Tablet (Ultram)Indication s:Acute pain of left knee,Acute pain of left shoulder Take 1 Tablet by mouth every 8 hours as needed for Pain, Severe. 45 Tablet 11/13/19 25 Active NATURAL SUPPLEMENT Apply 1 Application topically to affected area as needed (itching/rash). Apply 3-4 times a day as needed for itching/rash Active Hydrocortisone 2.5 % External Ointment APPLY Externally 3 times a day As Needed for itching for 10 days 10/29/19 25 Active hydrOXYzine HCl 10 MG Oral Tablet (Atarax)Indication s:Pruritus Take 1 Tablet by mouth in the morning and 1 Tablet before bedtime. 60 Tablet 1 11/19/19 25 Active Doxycycline Hyclate 100 MG Oral CapsuleIndications :COPD exacerbation (HCC) Take 1 Capsule by mouth in the morning and 1 Capsule before bedtime. Do all this for 7 days. Until gone.. 14 Capsule 11/29/19 25 025 Active documented as of this encounter (statuses as of 11/28/2024) Active Problems Problem Noted Date Diagnosed Date Spinal stenosis of lumbar re gion without neurogenic claudication 10/18/2024 MCI (mild cognitive impairment) 01/13/2024 Assessment & Plan (01/13/2024 8:37 AM EDT): Following with neurology Brain mri scheduled Recently completed EEG Will taper off gabapentin as recommended by neuro History of total hip replacement, right 12/26/19 Assessment & Plan (04/02/2024 2:46 PM EDT): [facility] with [facility] sports med Has CT scan scheduled this week due to fluid filled mass over right hip 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 10/04/2023 COPD, group D, by GOLD 2017 classification 08/21 Overview: Per COPD GOLD Classification Assessment & Plan (04/02/2024 2:44 PM EDT): "RED FLAG" COPD symptoms: Increased dyspnea on exertion ("I can't walk to the kitchen or up the stairs without coughing and wheezing", "My chest feels tight any time I move") Wheezing ("You can hear the whistling across the room") Medication Regimen All Classes - MANNIE Class B, C, D - LAMA Class D, Asthma/COPD Overlap - Inhaled Glucocorticoid-LABA Combination Inhaler Remote Patient Monitoring Vendor: No Connected RPM Device(s): No current devices Self-Management plan High frequency nebulizer treatments every 4-6 hours around the clock Exacerbation plan Solumedrol 40mg IM/IV Chest Xray Additional Comments: Recent pneumonia Completed antibiotics, using nebs prn Assessment & Plan (01/13/2024 8:35 AM EDT): "RED FLAG" COPD symptoms: Increased dyspnea on exertion ("I can't walk to the kitchen or up the stairs without coughing and wheezing", "My chest feels tight any time I move") Wheezing ("You can hear the whistling across the room") Medication Regimen All Classes - MANNIE Class B, C, D - LAMA Class D, Asthma/COPD Overlap - Inhaled Glucocorticoid-LABA Combination Inhaler Remote Patient Monitoring Vendor: No Connected RPM Device(s): No current devices Self-Management plan High frequency nebulizer treatments every 4-6 hours around the clock Exacerbation plan Solumedrol 40mg IM/IV Chest Xray Additional Comments: Breathing stable today Status post total right knee replacement 023 Hypertensive left ventricula r hypertrophy, without heart failure 02/22/2023 History of pulmonary embolism 01/11/2023 History of CVA (cerebrovascular accident) 2022 Migraine without aura and wi thout status migrainosus, not intractable 01/11/2023 DNR no code (do not resuscitate) 01/08/2023 Hypokalemia 01/07/2023 Chronic anticoagulation 01/07/2023 Primary osteoarthritis of right knee 12/12/2022 B12 deficiency 06/27/2022 Paroxysmal atrial fibrillation 01/27/2022 Assessment & Plan (01/13/2024 8:36 AM EDT): Rate controlled Continue apixaban Family history of colon cancer 01/27/2022 Essential hypertension with goal blood pressure less than 140/90 06/02/2021 Moderate episode of recurrent major depressive d isorder 02/17/2021 Assessment & Plan (01/13/2024 8:36 AM EDT): Continues on cymbalta and buspar Mood stable Will d/c prn hydroxyzine Age-related osteoporosis wit hout current pathological fracture 02/17/2021 Gastroesophageal reflux disease without esophagi tis 01/18/2021 Pure hypercholesterolemia 08/17/2020 Lupus anticoagulant positive 10/10/2018 Tobacco use disorder 09/24/2008 Organic sleep disorder 09/24/2008 Anxiety state 09/24/2008 Cervical spondylosis 09/23/2008 Brachial neuritis 09/23/2008 Displacement of cervical int ervertebral disc without myelopathy 06/16/2008 Generalized osteoarthritis of multiple sites LOC PRIM OSTEOART-SHLDER 06/29/2004 documented as of this encounter (statuses as of 11/28/2024) Resolved Problems Problem Noted Date Diagnosed Date Resolved Date Prediabetes 06/24/2024 11/28/2024 Overview: Per Prediabetes protocol COPD exacerbation 09/06/2023 10/04/2023 COPD, group B, [...] Classification TIA (transient ischemic attack) 01/17/2019 08/17/2020 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 documented as of this encounter (statuses as of 11/28/2024) Immunizations Name Administration Dates Next Due COVID-19 mRNA, LNP-s, No Pre serve, 2-Dose Series ([employer]) 11/12/2020,10/22/2020 COVID-19, LNP-s, No Preserve , Cedric-sucrose, Ages 12+ ([employer]) 07/23/2021 COVID-19, MRNA-LNP, PF, 30 M CG/0.3 mL, 12 YRS AND ABOVE, IM ([facility] 10/04/2023 Covid-19, Mrna, Lnp-s, Pf, B ivalent, 30 Mcg, IM, 12 yrs and above ([employer]) 12/12/2022 Pneumococcal Conjugate Vacci ne, 20-valent ([id number]) 01/27/2022 Pneumococcal Polysaccharide PPV23 (Pneumovax) 01/18/2021,07/13/2015 RSV Vac., Bivalent, Perfusio n F, Pf,0.5 Ml (Abrysvo) 10/30/2023 Seasonal Influenza Vac., MDV , IM, 0.5 mL (Fluzone) 06/17/2016,07/13/2015 Seasonal Influenza, High Dos e, Trivalent, PF, IM (Fluzone HD) 04/19/2024 Seasonal Influenza, PF, 6 M & above, IM , (FluLaval or Fluzone) 05/11/2020,08/16/2018 Seasonal Influenza, Quadriva lent Hd (Fluzone Hd) 04/24/2023,05/02/2022,05/05/2021 TDAP (age 10 and older)(Boostrix) 06/26/2024,01/2015,05/20/2008 TDAP, Age 7 and older, IM (Adacel) 05/20/2008 Zoster Vaccine Recombinant (Shingrix) 06/02/2021 ,01/18/2021 documented as of this encounter Social History Tobacco Use Types Packs/Day Years Used Date Smoking Tobacco: Former Cigarettes 0.5 60 Passive Smoke Exposure: Past Smokeless Tobacco: Never Comments:09/15/2023 2 packs pe r week Alcohol Use Standard Drinks/Week Comments No 0 (1 standard drink = 0.6 oz pur e alcohol) PHQ-2 Answer Date Recorded PHQ Adult Total Score 0 11/15/2024 Hunger Vital Sign Answer Date Recorded Within the past 12 months, y ou worried that your food would run out before you got the money to buy more. Never true 11/16/19 25 Within the past 12 months, t he food you bought just didn't last and you didn't have money to get more. Never true 11/15/2024 Childcare Answer Date Recorded Do you feel overwhelmed with taking care of a child, family member or friend? No 11/15/2024 Does your family need help f inding childcare? (Household - for ages 0-17 years) Not on file 11/15/2024 Clothing Answer Date Recorded Have you been unable to get clothing when it was really needed? No 11/15/2024 Is your family able to get c lothes or diapers when needed? (Household - for ages 0-17 years) Not on file 11/15/2024 Personal Safety Answer Date Recorded Do you feel unsafe or have concerns for your saf ety? No 11/15/2024 Do you have concerns for you r family's safety? (Household - for ages 0-17 years) Not on file 11/15/2024 Utilities Answer Date Recorded Do you have trouble paying y our heating, water, or electric bill? No 11/15/2024 Is your family able to pay t he heat, water, or electric bill? (Household - for ages 0-17 years) Not on file 11/15/2024 Does your family have access to good internet? (Household - for ages 0-17 years) Not on file 11/15/2024 Employment Status Answer Date Recorded Are you unemployed or without regular income? No 11/15/2024 Does the household have a re gular source of income? (Household - for ages 0-17 years) Not on file 11/15/2024 Social Connections Answer Date Recorded How often do you feel lonely or isolated from th ose around you? Never 11/15/2024 Financial Resource Strain Answer Date R ecorded Do you have any trouble payi ng for your medications, or do you think you might in the future? No 11/15/2024 Does your family have troubl e paying for medicine? (Household - for ages 0-17 years) Not on file 11/15/2024 Transportation Needs Answer Date Record ed Do you have trouble getting a ride to medical visits or work? (Adult - for ages 18 years and over) Not on file 11/15/2024 Does your family have a hard time getting a ride to doctors visits? (Household - for ages 0-17 years) Not on file 11/15/2024 Has lack of transportation k ept you from medical appointments, meetings, work, or from getting things needed for daily living? Check all that apply. No 11/15/2024 Do you (or your family) have trouble finding or paying for a ride (transportation)? (Household - for ages 0-17 years) Not on file 11/15/2024 Housing Stability Answer Date Recorded Do you currently live in a s helter or have no steady place to sleep at night? No 11/15/2024 Do you think you are at risk of becoming homeless? (Adult - for ages 18 years and over) Not on file 11/15/2024 Does your family worry about paying for your home or becoming homeless? (Household - for ages 0-17 years) Not on file 0 11/15/2024 Are you homeless or worried that you might be in the future? No 11/15/2024 Are you (or your family) alfreda eless or worried that you might be in the future? (Household - for ages 0-17 years) Not on file Food Insecurity Answer Date Recorded Do you need food for this week? No 09/17/2024 Are you able to get enough f ood for your family? (Household - for ages 0-17 years) Not on file 09/17/2024 Does your family need food t his week? (Household - for ages 0-17 years) Not on file 09/17/2024 Do you always have enough fo od for your family? (Household - for ages 0-17 years) Not on file 09/17/2024 Food Insecurity Answer Date Recorded Within the past 12 months, y ou worried that your food would run out before you got the money to buy more. Never true 11/16/19 25 Within the past 12 months, t he food you bought just didn't last and you didn't have money to get more. Never true 11/15/2024 Do you need food for this week? No 11/15/2024 Education Answer Date Recorded What is the highest level of school you have completed or the highest degree you have received? Some college, no degree 01/09/2024 Comments No Sex and Gender Information Value Date Recorded Sex Assigned at Female 12/19/2018 1:39 PM EDT Legal Sex Female 5:56 AM EST Gender Identity Female 12/19/2018 1:39 PM EDT Sexual Orientation Straight 12/19/2018 1: 39 PM EDT Occupation Industry Job Start Date Job End Date retired [employer] Not on file Not on file Not on file documented as of this encounter Functional Status * Are you deaf or do you have serious difficulty hearing? Answer Date of Assessment Author No 01/07/2023 8:34 PM Lei Soria LPN * Are you blind or do you have serious difficulty seeing, even when wearing glasses? Answer Date of Assessment Author No 01/07/2023 8:34 PM Lei Soria LPN * Do you have serious difficulty walking or climbing stairs? (5 years old or older) Answer Date of Assessment Author Yes 01/07/2023 8:34 PM Lei Soria LPN * Do you have difficulty dressing or bathing? (5 years old or older) Answer Date of Assessment Author Yes 01/07/2023 8:34 PM Lei Soria LPN * Because of a physical, mental, or emotional condition, do you have difficulty doing errands alone such as visiting a doctor’s office or shopping? (15 years old or older) Answer Date of Assessment Author Yes 01/07/2023 8:34 PM Lei Soria LPN documented as of this encounter Mental Status * Because of a physical, mental, or emotional condition, do you have serious difficulty concentrating, remembering, or making decisions? (5 years old or older) Answer Entry Date Author Yes 01/07/2023 8:34 PM EDT Lei Bower LPN documented in this encounter Miscellaneous Notes * Telephone Encounter - Yolanda Jenkins RN - 11/28/2024 3:19 PM EDT PC to patient to assure she is aware of new ABX RX. No answer. Unable to leave [facility] PC to son he is aware of ABX. States pt is on her way to pick it up now. He reports they are aware of RNCM appt tomorrow * Telephone Encounter - Hien Zuniga LPN - 11/28/2024 2:13 PM EDT States there is bugs inside of her, coming out thru nose, bm and on skin. White, yellow and brown bugs, she has saved them. Aware and will comply. Pharmacy confirmed. Will forward to @. Thank you * Telephone Encounter - Perfecto Sauceda DO - 11/28/2024 1:45 PM EDT See if at home can check on the patient today. See if she is blowing bugs out of her nose. Start Doxycycline 100 mg daily for 1 week to treat bronchitis. * Telephone Encounter - Theresa Kelsey LPN - 11/28/2024 12:21 PM EDT Call placed to patient. She reports she is sick. States she did not go to the hospital yesterday. Sore throat, thinks she may have had a fever during the night but does not have a thermometer to check temp. Thinks she may now have bugs in her body. Showered last night and was able to scrape some of them off her skin. Also had a BM and there were white dots in her stool she thinks were bugs. States she is blowing yellow bugs out of her nose and digging them out of her ears. States she has had trouble with feral cats that have had lice. Several cats were taken away but they have found their way back to her house. Pt states she collected some of the bugs and has them in a plastic container. Pt again voiced concern that the bugs are now inside her body. Please advise. * Telephone Encounter - Sindi Hancock OSA - 11/28/2024 8:03 AM EDT Pt started last night with cough,chest/ sinus congestion, sore throat , ears hurt, possible fever, sob. States that she was going to go to hospital last night. Dr has no openings today. documented in this encounter Plan of Treatment Upcoming Encounters Date Type Department Care Team (Latest Contact Info) Description 11/29/2024 9:30 AM EDT Home Visit [facility] at [facility] [address] [address] Nida Burton RN [address] [address] 12/02/2024 10:00 AM EDT Imaging Radiology [facility] [address] [phone] 12/03/2024 11:00 AM EDT Home Visit [facility] [address] [address] Nida Burton RN [address] [address] 12/09/2024 10:40 AM EDT Office Visit Dermatology, Becky Randle [address] [address] Rhea Ward PA-C [address] [place] [address] 12/16/2024 10:40 AM EDT Office Visit Family Practice [address] [place] [address] [address] [place] [address] Perfecto Sauceda DO [address] [place] [address] 12/25/2024 10:40 AM EDT Office Visit Neurology [facility] [address] [facility] [place] [address] Naty Hall MD [address] [facility] [place] [address] 12/27/2024 11:00 AM EDT Office Visit Urology [facility] [place] [address] [address] Karma Grider PA-C [address] [place] [address] 02/17/2025 12:41 PM EDT Hospital Encounter [facility] Operating [facility] [address] [place] [address] [place] [phone] Henrry Lindsay DO [address] [place] [phone] 02/17/2025 12:41 PM EDT - 02/17/2025 1:02 PM EDT Surgery [facility], Operating [facility] [address] [place] [address] [place] [phone] Henrry Lindsay DO [address] [place] [phone] INJECTION SPINE LUMBAR OR SACRAL 05/01/2025 1:00 PM EDT Office Visit Dermatology, [address] [phone] Annalisa Pascal PA-C [address] [place] [address] [place] [address] 05/05/2025 9:30 AM EDT Office Visit Pulmonary Medicine, [facility] [address] [place] [phone] Anuel Dennison MD [address] [place] [phone] Scheduled Procedures Name Priority Associated Diagnoses Date/Ti me INJECTION SPINE LUMBAR OR SACRAL Lumbar radiculopathy 02/17/2025 12:41 PM EDT Health Maintenance Due Date Last Done Comments Adult Wellness Visit 12/06/2023 12/05/2022, 12/16/19 22 Colonoscopy 12/30/2023 12/29/2022, 12/12, 11/22/2016, Additional history exists *BISPHONATE OR OTHER ACCEPTABLE MEDICATION NEEDED FOR OSTEOPOROSIS (REFER TO SMARTSET #1146) 08/29/2024 Albumin/Creatinine Ratio 01/27/2025 01/27/2022 DXA Scan 07/26/2025 07/26/2023, 07/14, 02/08/2021, Additional history exists GFR 11/05/2025 11/05/2024, 08/14, 04/19/2024, Additional history exists Depression Monitoring 11/15/2025 11/15/2024, 025 O2 ASSESSMENT COMPLETED IN PAST YEAR FOR COPD 11/18/2025 11/18/2024 DTap/Tdap Vaccines (5 - Td or Tdap) 06/26/2034 06/26/2024, 02/16/2015, 05/20/2008, Additional history exists VITAMIN D LEVEL ONCE IN A LIFETIME-USE SMARTSET# [id number] Completed 08/16/2018 Zoster Vaccines Completed 06/02/2021, 01/18/2021 Pneumococcal Vaccine: 50+ Years Completed 01/27/2022, 01/18/2021, 07/13/2015 Alpha-1 Antitrypsin Completed 09/30/2022 RETIRED - COLONOSCOPY-ANNUAL AGES 18-100 Discontinued 12/29/2022, 12/29/2022, 11/22/2016, Additional history exists RETIRED - COLONOSCOPY-EVERY 5 YRS AGES 18-100 Discontinued 12/29/2022, 12/29/2022, 11/22/2016, Additional history exists COVID-19 Vaccine Discontinued 10/04/2023, 08/2022, 07/23/2021, Additional history exists Influenza Vaccine (FLU shot) Completed 04/19/2024, 04/24/2023, 05/02/2022, Additional history exists HPV (Gardasil) Vaccine Aged Out No lo nger eligible based on patient's age to complete this topic Hepatitis B Vaccine Aged Out No longe r eligible based on patient's age to complete this topic MENINGOCOCCAL (MENACTRA/MENVEO) Aged Out No longer eligible based on patient's age to complete this topic Meningitis B Vaccine (Bexsero/Trumemba) Aged Out No longer eligible based on patient's age to complete this topic documented as of this encounter Medical Devices Not on filedocumented as of this encounter Visit Diagnoses Diagnosis MCI (mild cognitive impairment)- Primary Mild cognitive impairment, so stated Moderate episode of recurrent major depressive disorder (HCC) COPD, group D, by GOLD 2017 classification ([facility]) Advanced care planning/counseling discussion Other specified counseling Paroxysmal atrial fibrillation (HCC) Atrial fibrillation Pneumonia of right lower lobe due to infectious organism- Primary Diarrhea, unspecified type History of total hip replacement, right COPD, group D, by GOLD 2017 classification (HCC) Advanced care planning/counseling discussion Other specified counseling COPD exacerbation (HCC)- Primary Obstructive chronic bronchitis with exacerbation Lumbar radiculopathy Thoracic or lumbosacral neuritis or radiculitis, unspecified documented in this encounter Additional Health Concerns Infection Onset Date Last Indicated Resolved Time C. 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 Question Answer Comments Discussion of Advance Directives occurred with: Patient Care Teams Laborer Egg Producing Farm Relationship Specialty Start Date End Date Perfecto Sauceda DO [address] [facility] [address] PCP - General Internal Medicine 01/30/24 documented as of this encounter
--- OUTSIDE RECORDS SUMMARY | 2024-12-07 15:39 | External Medical Summary | Summary of Care ---
Author Name Unknown Organization [facility] Address [address] [place] [address] Phone [phone] Care Team Providers Care Internal Communications Manager Name Role Phone Sohanjose armando Perfecto Rivera DO Primary Care Provider Encounter Details Date Type Department Care Team (Late st Contact Info) Description 11/25/2024 12:00 PM EDT Scheduled Telephone Care Coordination and Integration [address], [place] [phone] Vale Guido, Community Health Leather Worker [address], [place] [phone] Allergies Active Allergy Reactions Criticality Noted Date Comments Barium Sulfate Diarrhea,Nausea/vomi ting,Rash 09/17/2024 Iodinated Contrast Media Hives Low 09/16/2024 Oxycodone High 11/20/2023 Other Reaction(s): confusion Vancomycin Rash Medium 04/19/2024 documented as of this encounter (statuses as of 11/26/2024) Medications Cholecalciferol (VITAMIN D) 2000 UNITS Tablet [...] 18 g 3 08/16/19 25 Active Nystatin 146633 UNIT/ML Mouth/Throat SuspensionIndicati ons:Thrush Swish and swallow [...] Respimat 1.25 MCG/ACT Inhalation Aerosol Solution (Tiotropium [place] Monohydrate)Indica tions:COPD, group A, by GOLD 2017 classification ([facility]) INHALE 2 PUFFS BY [...] bedtime. 60 Tablet 1 11/19/19 25 Active documented as of this encounter (statuses as of 11/26/2024) Active Problems Problem Noted Date Diagnosed Date Spinal stenosis of lumbar re gion without neurogenic claudication 10/18/2024 Prediabetes 06/24/2024 Overview: Per Prediabetes protocol MCI (mild cognitive impairment) 01/13/2024 Assessment & Plan (01/13/2024 8:37 AM EDT): Following with neurology Brain mri scheduled Recently completed EEG Will taper off gabapentin as recommended by neuro History of total hip replacement, right 12/26/19 24 Assessment & Plan (04/02/2024 2:46 PM EDT): Following with [facility] sports med Has CT scan scheduled [...] as of this encounter (statuses as of 11/26/2024) Resolved Problems Problem Noted Date Diagnosed Date [...] as of this encounter (statuses as of 11/26/2024) Immunizations Name Administration Dates Next Due COVID-19 mRNA, LNP-s, No Pre serve, 2-Dose Series ([employer]) 11/12/2020,10/22/2020 COVID-19, LNP-s, No Preserve , Cedric-sucrose, Ages 12+ (Pfizer) 07/23/2021 COVID-19, MRNA-LNP, PF, 30 M CG/0.3 mL, 12 YRS AND ABOVE, IM ([facility]) 10/04/2023 Covid-19, Mrna, Lnp-s, Pf, B ivalent, 30 Mcg, IM, 12 yrs and above ([employer]) 12/12/2022 Pneumococcal Conjugate Vacci ne, 20-valent ([id number]) 01/27/2022 Pneumococcal Polysaccharide PPV23 (Pneumovax) 01/18/2021,07/13/2015 RSV [...] Entry Date Author Yes 01/07/2023 8:34 PM Lei Soria LPN documented in this encounter Progress Notes * Tashia Nieves RN - 11/25/2024 4:52 PM EDT Noted. If you hear anything from Nida, let me know. * Vale Guido, Community Health Leather Worker - 11/25/2024 12:07 PM EDT Telemedicine visit: No Community Health Worker (CHW) documentation: This CHW placed 1st f/u PC to patient per CM's request Patient sounded "scattered" over the phone. Has a lot going on. Patient said "she is a little scuffed up" but she is doing okay other guzman. Patient said she thinks the doctor told her that she might have gout. Patient said that she really could not remember what the doctor told her when she saw him. Patient reported that she is still having swelling in her feet and legs but nothing worse than what they usually are. Patient does still have bug bites on her and she is still using her hydrocortisone cream. Patient said she is taking the 2 fluid pills like the doctor told her too. She has not hadany falls or fevers. No worsening pain and the bug bites so still itch her but not as bad. She is still using the cream. Patient does not want Nida to come tomorrow because she is just not sure what she has and does not want to expose anyone to it. Patient would rather Nida wait until she seeYon Sauceda this Monday and would like Nida to come next week. Patient requested that this CHW relay this to Nida. This CHW will forward her request to Nida. This Chw asked patient about MOWs and patient had not done anything about this yet and was waiting to Nida to help her with this. ThisCHW gave patient the AAA number and suggested that she call them to sign up for this. Patient said she would do this today. This CHW will follow up with patient next week as scheduled. Vale Guido- Community Health Worker 1 Support Services/[facility] [employer] Health Plan [email or web address] documented in this encounter Plan of Treatment Upcoming Encounters Date Type Department Care Team (Latest Contact Info) Description 11/26/2024 11:30 AM EDT Home Visit Jason at [facility] [address] [place] [address] Nida Burton, RN [address] [place] [address] 12/02/2024 10:00 AM EDT Imaging Radiology [address], [place] [address] [place] [phone] 12/09/2024 10:40 AM EDT Office Visit Dermatology, Becky Randle [address] [place] [address] Rhea Ward PA-C 27 [place] [address] 12/16/2024 10:40 AM EDT Office Visit Family Practice [address] [place] [address] 293 [facility] [place] [address] Perfecto Sauceda, 293 [place] [address] 12/25/2024 10:40 AM EDT Office Visit Neurology [facility] [address] [place], [place] [address] Naty Hall MD 200 [facility] [place] [address] 12/27/2024 11:00 AM EDT Office Visit Urology Becky Randle [address] [place] [address] Karma Grider PA-C 27 [place] [address] 02/17/2025 12:41 PM EDT Hospital Encounter OR [facility], Operating Room [facility] [address] [place] [address] [place] [phone] Henrry Lindsay, DO [address] [place] [phone] 02/17/2025 12:41 PM EDT - 02/17/2025 1:02 PM EDT Surgery OR [facility], Operating Room [facility] [address] [place] [address] [place] [phone] Henrry Lindsay, DO [address] [place] [phone] INJECTION SPINE LUMBAR OR SACRAL 05/01/2025 1:00 PM EDT [facility] [address] [facility] [phone] Annalisa Pascal PAVince [address] [place] [address] [place] [address] 05/05/2025 9:30 AM EDT Office Visit Pulmonary Medicine, [facility] [address] [place] [phone] Anuel Dennison MD [address] [place] [phone] Scheduled Procedures Name Priority Associated Diagnoses Date/Ti me INJECTION SPINE LUMBAR OR SACRAL Lumbar radiculopathy 02/17/2025 12:41 PM EDT Health Maintenance Due Date Last Done Comments Adult Wellness Visit 12/06/2023 12/05/2022, 12/16/19 22 Colonoscopy 12/30/2023 12/29/2022, 12/12, 11/22/2016, Additional history exists *BISPHONATE OR OTHER ACCEPTABLE MEDICATION NEEDED FOR OSTEOPOROSIS (REFER TO SMARTSET #1146) 08/29/2024 Albumin/Creatinine Ratio 01/27/2025 01/27/2022 HbA1c 06/17/2025 06/17/2024 DXA Scan 07/26/2025 07/26/2023, 07/14, 02/08/2021, Additional history exists GFR 11/05/2025 11/05/2024, 08/14, 04/19/2024, Additional history exists Depression Monitoring 11/15/2025 11/15/2024, 025 O2 ASSESSMENT COMPLETED IN PAST YEAR FOR COPD 11/18/2025 11/18/2024 DTap/Tdap Vaccines (5 - Td or Tdap) 06/26/2034 06/26/2024, 02/16/2015, 05/20/2008, Additional history exists VITAMIN D LEVEL ONCE IN A LIFETIME-USE SMARTSET# 75050 Completed 08/16/2018 Zoster Vaccines Completed 06/02/2021, 01/18/2021 [...] Not on filedocumented as of this encounter Additional Health Concerns Infection Onset Date Last Indicated Resolved Time C. difficile Rule-Out 04/19/2024 04/19/2024 documented as of this encounter Advance Directives Documents on File Type Date Recorded Patient Security Business Analyst Expl anation Power of Project Development Engineer 12/17/2018 POWER OF A TTORNEY * No Code (Latest Code Status on File) Date Activated Date Inactivated Comments 01/07/2023 8:13 PM 01/09/2023 7:16 PM This order r eflects the patients wishes and were consensually agreed upon. Question Answer Comments Discussion of Advance Directives occurred with: Patient Care Teams Internal Communications Manager Relationship Specialty Start Date End Date Perfecto Sauceda DO [address] [place] [address] PCP - General Internal Medicine 01/30/24 documented as of this encounter
--- OUTSIDE RECORDS SUMMARY | 2024-12-07 15:39 | External Medical Summary | Summary of Care ---
Author Name Unknown Organization [facility] Address [address] [facility] [place] [address] Phone [phone] Care Team Providers Care Flyer Builder Name Role Phone Sohanjose armandoPerfecto DO Primary Care Provider [phone] Encounter Details Date Type Department Care Team (Late st Contact Info) Description 11/29/2024 9:30 AM EDT [facility] [address] [place] [address] Nida Burton RN [address] [place] [address] Allergies Active Allergy Reactions Criticality Noted Date Comments Barium Sulfate Diarrhea,Nausea/vomi ting,Rash 09/17/2024 Iodinated Contrast Media Hives Low 09/16/2024 Oxycodone High 11/20/2023 Other Reaction(s): confusion Vancomycin Rash Medium 04/19/2024 documented as of this encounter (statuses as of 12/02/2024) Medications Cholecalciferol (VITAMIN D) 2000 UNITS Tablet [...] 18 g 3 08/16/19 25 Active Nystatin 286400 UNIT/ML Mouth/Throat SuspensionIndicati ons:Thrush Swish and swallow 5 mL in the morning and 5 mL at noon and 5 mL in the evening and 5 mL before bedtime. For thrush.. 240 mL 1 08/20/19 25 Active Pantoprazole Sodium 40 MG Oral Tablet Delayed Release (Protonix)Indicati ons:Gastroesophage al reflux disease without esophagitis Take 1 Tablet by mouth in the morning. 100 Tablet 3 12/02/2024 3:13 PM EDT 08/26/19 25 Active Spiriva Respimat 1.25 MCG/ACT Inhalation Aerosol Solution (Tiotropium [place] Monohydrate)Indica tions:COPD, group A, by GOLD 2017 classification ([facility]) INHALE 2 PUFFS BY MOUTH [...] constipation. 437 mL 5 10/03/19 25 Active Additional Information Patient taking differently:20 g OralBID PRN, Constipation, severe constipation, Reported on 11/29/2024 Apixaban 2.5 MG Oral Tablet (Eliquis) Take [...] gone.. 14 Capsule 11/29/19 25 025 Active Probiotic Daily Oral Capsule Take 1 Capsule by mouth in the morning. Active documented as of this encounter (statuses as of 12/02/2024) Active Problems Problem Noted Date Diagnosed Date Spinal stenosis of lumbar re gion without neurogenic claudication 10/18/2024 MCI (mild cognitive impairment) 01/13/2024 Assessment & Plan (01/13/2024 8:37 AM EDT): Following with neurology Brain mri scheduled Recently completed EEG Will taper off gabapentin as recommended by neuro History of total hip replacement, right 12/26/19 Assessment & Plan (04/02/2024 2:46 PM EDT): [facility] Has [facility] scan scheduled this [...] as of this encounter (statuses as of 12/02/2024) Resolved Problems Problem Noted Date Diagnosed Date [...] as of this encounter (statuses as of 12/02/2024) Immunizations Name Administration Dates Next Due COVID-19 mRNA, LNP-s, No Pre serve, 2-Dose Series ([employer]) 11/12/2020,10/22/2020 COVID-19, LNP-s, No Preserve , Cedric-sucrose, Ages 12+ ([employer]) 07/23/2021 COVID-19, MRNA-LNP, PF, 30 M CG/0.3 mL, 12 YRS AND ABOVE, IM ([employer]) 10/04/2023 Covid-19, Mrna, Lnp-s, Pf, B ivalent, 30 Mcg, IM, 12 yrs and above ([employer]) 12/12/2022 Pneumococcal Conjugate Vacci ne, 20-valent ([id number]) 01/27/2022 Pneumococcal Polysaccharide PPV23 (Pneumovax) 01/18/2021,07/13/2015 RSV [...] Sign Reading Time Taken Comments Blood Pressure 130/74 11/29/2024 10:48 AM EDT Pulse 80 11/29/2024 10:48 AM EDT Temperature 36.4 °C (97.6 °F) 11/29/2024 10:48 AM E DT Respiratory Rate 18 11/29/2024 10:48 AM EDT Oxygen Saturation 95% 11/29/2024 10:48 AM EDT Inhaled Oxygen Concentration - - Weight - - Height - - Body Mass Index - - documented in this encounter Functional Status * Are you deaf or do you have serious difficulty hearing? Answer Date of Assessment Author No 01/07/2023 8:34 PM EDT Lei Bower LPN * Are you blind or do you have serious difficulty seeing, even when wearing glasses? Answer Date of Assessment Author No 01/07/2023 8:34 PM WOLFT Lei Bower LPN * Do you have serious difficulty walking or climbing stairs? (5 years old or older) Answer Date of Assessment Author Yes 01/07/2023 8:34 PM EDT Lei Bower LPN * Do you have difficulty dressing or bathing? (5 years old or older) Answer Date of Assessment Author Yes 01/07/2023 8:34 PM EDT Lei Bower LPN * Because of a physical, mental, or emotional condition, do you have difficulty doing errands alone such as visiting a doctor’s office or shopping? (15 years old or older) Answer Date of Assessment Author Yes 01/07/2023 8:34 PM EDT Lei Bower LPN documented as of this encounter Mental Status * Because of a physical, mental, or emotional condition, do you have serious difficulty concentrating, remembering, or making decisions? (5 years old or older) Answer Entry Date Author Yes 01/07/2023 8:34 PM EDT Lei Bower LPN documented in this encounter Progress Notes * Perfecto Sauceda DO - 12/02/2024 11:58 AM EDT Rash is similar Keep appointment with Dermatology as scheduled on 12/09/2024. * Tashia Nieves RN - 12/02/2024 11:[address] Sauceda-- Are the pictures different from when you saw her in the office? * Nida Burton RN - 11/29/2024 10:16 AM EDT Images from the original note were not included. Current Concerns: Pt seen for return RNCM visit She called in to PCP office yesterday and reported to them that she was coughing up mucus with bugsin it and also had a bowel movement that had white dots in it that were bugs Visit made today to assess Pt was prescribed doxycyline for the yellow sputum She was also prescribed hydroxyzine when she saw pcp Pt feels rash is from bugs Had two indoor cats and multiple cats outdoors that she feeds Took her indoor cats to vet and found that they do not have any infestation Checked her home, furniture, etc and did not find any bugs in the home Physical Exam: Review of Systems: Care Plan Goal Progress: Orders Placed: No orders of the defined types were placed in this encounter. Medications Given: Care Gaps: documented in this encounter Plan of Treatment Upcoming Encounters Date Type Department Care Team (Latest Contact Info) Description 12/09/2024 10:40 AM EDT Office Visit Dermatology, Becky Randle [address] [place] [address] Rhea Ward PA-C 27 [place] [address] 12/16/2024 10:40 AM EDT Office Visit Family Practice [address] [place] [address] 293 [place] [address] Perfecto Sauceda, 293 [place] [address] 12/20/2024 11:30 AM EDT Home Visit Jason at [place], [facility] [address] [place] [address] Nida Burton RN 132 [place] [address] 12/25/2024 10:40 AM EDT Office Visit [facility] [address] [place] [address] Naty Hall MD 200 [facility] [place] [address] 12/27/2024 11:00 AM EDT Office Visit Urology Becky Randle [address] [place] [address] Karma Grider PA-C [address] [place] [address] 02/17/2025 12:41 PM EDT Hospital Encounter OR [facility], Operating Room [facility] [address] [place] [address] [place] [phone] Henrry Lindsay, DO [address] [place] [phone] 02/17/2025 12:41 PM EDT - 02/17/2025 1:02 PM EDT Surgery OR [facility], Operating Room [facility] [address] [place] [address] [place] [phone] Henrry Lindsay, DO [address] [place] [phone] INJECTION SPINE LUMBAR OR SACRAL 05/01/2025 1:00 PM EDT [facility] 226 [facility] [place] [phone] Annalisa Pascal PA-C [address] [place] [address] [place] [address] 05/05/2025 9:30 AM EDT Office Visit Pulmonary Medicine, [facility] [address] [place] [phone] Anuel Dennison MD [address] [place] [address] Scheduled Procedures Name Priority Associated Diagnoses Date/Ti [...] ASSESSMENT COMPLETED IN PAST YEAR FOR COPD 11/29/2025 11/29/2024 DTap/Tdap Vaccines (5 - Td or Tdap) 06/26/2034 06/26/2024, 02/16/2015, 05/20/2008, Additional history exists VITAMIN D LEVEL ONCE IN A LIFETIME-USE SMARTSET# 61348 Completed 08/16/2018 Zoster Vaccines Completed 06/02/2021, 01/18/2021 [...] Documents on File Type Date Recorded Patient Sales Department Manager Expl anation Power of Rod Straightener 12/17/2018 POWER OF A TTORNEY * No Code (Latest Code Status on File) Date Activated Date Inactivated Comments 01/07/2023 8:13 PM 01/09/2023 7:16 PM This order r eflects the patients wishes and were consensually agreed upon. Question Answer Comments Discussion of Advance Directives occurred with: Patient Care Teams Flyer Builder Relationship Specialty Start Date End Date Perfecto Sauceda DO 293 [facility] [place] [address] PCP - General Internal Medicine 01/30/24 documented as of this encounter
--- OUTSIDE RECORDS SUMMARY | 2024-12-07 15:39 | External Medical Summary | Summary of Care ---
Author Name Unknown Organization [facility] Address [address] [place] [address] Phone [phone] Care Team Providers Care Registered Dietitian Name Role Phone Komal Perfecto Rivera DO Primary Care Provider [phone] Encounter Details Date Type Department Care Team (Late st Contact Info) Description 11/25/2024 12:00 PM EDT Scheduled Telephone Care Coordination and Integration [address] [place], [place] [phone] Vale Guido, Community Health Arcade Technician [address] [place], [place] [phone] Allergies Active Allergy Reactions Criticality Noted Date Comments Barium Sulfate Diarrhea,Nausea/vomi ting,Rash 09/17/2024 Iodinated Contrast Media Hives Low 09/16/2024 Oxycodone High 11/20/2023 Other Reaction(s): confusion Vancomycin Rash Medium 04/19/2024 documented as of this encounter (statuses as of 11/25/2024) Medications Cholecalciferol (VITAMIN D) 2000 UNITS Tablet [...] 18 g 3 08/16/19 25 Active Nystatin 597078 UNIT/ML Mouth/Throat SuspensionIndicati ons:Thrush Swish and swallow [...] Respimat 1.25 MCG/ACT Inhalation Aerosol Solution (Tiotropium [place] Monohydrate)Indica tions:COPD, group A, by GOLD 2017 classification ([facility] [...] as of this encounter (statuses as of 11/25/2024) Active Problems Problem Noted Date Diagnosed Date [...] Plan (04/02/2024 2:46 PM EDT): Following with [facility] sports med Has CT scan scheduled [...] as of this encounter (statuses as of 11/25/2024) Resolved Problems Problem Noted Date Diagnosed Date [...] as of this encounter (statuses as of 11/25/2024) Immunizations Name Administration Dates Next Due COVID-19 mRNA, LNP-s, No Pre serve, 2-Dose Series ([employer]) 11/12/2020,10/22/2020 COVID-19, LNP-s, No Preserve , Cedric-sucrose, Ages 12+ (Pfizer) 07/23/2021 COVID-19, MRNA-LNP, PF, 30 M CG/0.3 mL, 12 YRS AND ABOVE, IM ([facility]) 10/04/2023 Covid-19, Mrna, Lnp-s, Pf, B ivalent, 30 Mcg, IM, 12 yrs and above ([employer]) 12/12/2022 Pneumococcal Conjugate Vacci ne, 20-valent ([id number]) 01/27/2022 Pneumococcal Polysaccharide PPV23 (Pneumovax) 01/18/2021,07/13/2015 RSV [...] me know. * Vale Guido, Community Health Arcade Technician - 11/25/2024 12:07 PM EDT Telemedicine visit: [...] Health Worker 1 Support Services/[facility] [employer] [facility] Plan [email or web address] documented in this encounter Plan of Treatment Upcoming Encounters Date Type Department Care Team (Latest Contact Info) Description 11/26/2024 11:30 AM EDT Home Visit Jason at [facility] [address] [place] [address] Nida Burton, RN 132 [place] [address] 12/02/2024 10:00 AM EDT Imaging Radiology [address], [place] [address] [place] [phone] 12/09/2024 10:40 AM EDT Office Visit Dermatology, Becky Randle [address] [place] [address] Rhea Ward PA-C 27 [place] [address] 12/16/2024 10:40 AM EDT Office Visit Family Practice [address] [place] [address] 293 [facility] [place] [address] Perfecto Sauceda, 293 [facility] [place] [address] 12/25/2024 10:40 AM EDT Office Visit Neurology [facility] [address] [place], [place] [address] Naty Hall MD 200 [facility] [place] [address] 12/27/2024 11:00 AM EDT Office Visit Urology Becky Randle [address] [place] [address] Karma Grider PA-C 27 [place] [address] 02/17/2025 12:41 PM EDT Hospital Encounter OR [facility], Operating Room [facility] [address] [place] [address] [place] [phone] Henrry Lindsay, DO [address] [place] [phone] 02/17/2025 12:41 PM EDT - 02/17/2025 1:02 PM EDT Surgery OR [facility], Operating Room [facility] [address] [place] [address] [place] [phone] Henrry Lindsay, DO [address] [place] [phone] INJECTION SPINE LUMBAR OR SACRAL 05/01/2025 1:00 PM EDT Office [facility] [address] [facility] [place] [phone] Annalisa Pascal PAVince [address] [place] [address] [place] [address] 05/05/2025 9:30 AM EDT Office Visit Pulmonary Medicine, [facility] [address] [place] [phone] Anuel Dennison MD [address] [place] [phone] Scheduled Procedures Name Priority Associated Diagnoses Date/Ti [...] D LEVEL ONCE IN A LIFETIME-USE SMARTSET# 88901 Completed 08/16/2018 Zoster Vaccines Completed 06/02/2021, 01/18/2021 [...] Documents on File Type Date Recorded Patient Consumer Services Advisor Expl anation Power of Endbander 12/17/2018 POWER OF A TTORNEY * No Code (Latest Code Status on File) Date Activated Date Inactivated Comments 01/07/2023 8:13 PM 01/09/2023 7:16 PM This order r eflects the patients wishes and were consensually agreed upon. Question Answer Comments Discussion of Advance Directives occurred with: Patient Care Teams Registered Dietitian Relationship Specialty Start Date End Date Perfecto Sauceda DO [address] [place] [address] PCP - General Internal Medicine 01/30/24 documented as of this encounter
--- OUTSIDE RECORDS SUMMARY | 2024-12-07 15:39 | External Medical Summary | Summary of Care ---
Author Name Unknown Organization [facility] Address [address] [place] [address] Phone [phone] Care Team Providers Care Prosthodontist/Educator Name Role Phone Komal Perfecto Rivera DO Primary Care Provider [phone] Encounter Details Date Type Department Care Team (Late st Contact Info) Description 12/02/2024 10:30 AM EDT Scheduled Telephone Care Coordination and Integration [address] [place] [address] Vale Guido, Community Health Fleet Administrator [address] [place], [place] [id number] Allergies Active Allergy Reactions Criticality Noted Date [...] 18 g 3 08/16/19 25 Active Nystatin 760712 UNIT/ML Mouth/Throat SuspensionIndicati ons:Thrush Swish and swallow [...] Respimat 1.25 MCG/ACT Inhalation Aerosol Solution (Tiotropium [place] Monohydrate)Indica tions:COPD, group A, by GOLD 2017 classification ([facility]) INHALE 2 PUFFS BY MOUTH IN THE [...] Plan (04/02/2024 2:46 PM EDT): Following with [facility] sports med Has CT scan scheduled this [...] mRNA, LNP-s, No Pre serve, 2-Dose Series ([employer]) 11/12/2020,10/22/2020 COVID-19, LNP-s, No Preserve , Cedric-sucrose, Ages 12+ ([employer]) 07/23/2021 COVID-19, MRNA-LNP, PF, 30 M CG/0.3 mL, 12 YRS AND ABOVE, IM ([facility]) 10/04/2023 Covid-19, Mrna, Lnp-s, Pf, B ivalent, 30 Mcg, IM, 12 yrs and above ([employer]) 12/12/2022 Pneumococcal Conjugate Vacci ne, 20-valent ([id number]) 01/27/2022 Pneumococcal Polysaccharide PPV23 (Pneumovax) 01/18/2021,07/13/2015 RSV [...] Lei Bower LPN documented in this encounter Plan of Treatment Upcoming Encounters Date Type Department Care Team (Latest Contact Info) Description 12/09/2024 10:40 AM EDT Office Visit Dermatology, Pily Becky Coon [address] [place] [address] Rhea Ward PA-C 27 [place] [address] 12/16/2024 10:40 AM EDT Office Visit Family Practice [address] [place] [address] 293 [place] [address] Perfecto Sauceda, [address] [place] [address] 12/20/2024 11:30 AM EDT Home Visit [facility] 132 [facility] Sh[place] [facility] [place] [address] Niad Burton, RN 132 [place] [address] 12/25/2024 10:40 AM EDT Office Visit Neurology [facility] 200 [facility] [place] [address] Naty Hall MD 200 [facility] [place] [address] 12/27/2024 11:00 AM EDT Office Visit Urology Pily Becky Coon [address] 270 [place] [address] Karma Grider PA-C 27 [place] [address] 02/17/2025 12:41 PM EDT Hospital Encounter OR [facility], Operating Room [facility] [address] [place] [address] [place] [phone] Henrry Lindsay, [address] [place] [phone] 02/17/2025 12:41 PM EDT - 02/17/2025 1:02 PM EDT Surgery OR OSHP, Operating Room OS [address] [place] [address] [place] [phone] Henrry Lindsay, DO [address] [place] [phone] INJECTION SPINE LUMBAR OR SACRAL 05/01/2025 1:00 PM EDT Office Visit [facility]atology, [place] [facility] 226 [facility] [place] [phone] Annalisa Pascal PA-C [address] [place] [address] [place] [address] 05/05/2025 9:30 AM EDT Office Visit Pulmonary Medicine, [facility] [address] [place] [phone] Anuel [facility]ennison MD [address] [facility] [id number] Scheduled Procedures Name Priority Associated Diagnoses Date/Ti [...] D LEVEL ONCE IN A LIFETIME-USE SMARTSET# [id number] Completed 08/16/2018 Zoster Vaccines Completed 06/02/2021, 01/18/2021 [...] Documents on File Type Date Recorded Patient Supervisor Research Kennel Expl anation Power of Sanding Machine Tender 12/17/2018 POWER OF A TTORNEY * No Code (Latest Code Status on File) Date Activated Date Inactivated Comments 01/07/2023 8:13 PM 01/09/2023 7:16 PM This order r eflects the patients wishes and were consensually agreed upon. Question Answer Comments Discussion of Advance Directives occurred with: Patient Care Teams Prosthodontist/Educator Relationship Specialty Start Date End Date Perfecto Sauceda DO [address] [place] [address] PCP - General Internal Medicine 01/30/24 documented as of this encounter
--- OUTSIDE RECORDS SUMMARY | 2024-12-07 15:39 | External Medical Summary | Summary of Care ---
Author Name Unknown Organization [facility] Address [address] [place] [address] Phone [phone] Care Team Providers Care Lopper Name Role Phone Perfecto Sauceda DO Primary Care Provider Reason for Visit * Reason Onset Date Comments Other 12/03/2024 Encounter Details Date Type Department Care Team (Late st Contact Info) Description 12/03/2024 Telephone Family Practice [address] [facility], [place] [address] [place] [address] Perfecto Sauceda DO [address] [place] [address] Other Allergies Active Allergy Reactions Criticality Noted Date Comments Barium Sulfate Diarrhea,Nausea/vomi ting,Rash 09/17/2024 Iodinated Contrast Media Hives Low 09/16/2024 Oxycodone High 11/20/2023 Other Reaction(s): confusion Vancomycin Rash Medium 04/19/2024 documented as of this encounter (statuses as of 12/04/2024) Medications Cholecalciferol (VITAMIN D) 2000 UNITS Tablet [...] 18 g 3 08/16/19 25 Active Nystatin 637551 UNIT/ML Mouth/Throat SuspensionIndicati ons:Thrush Swish and swallow [...] Respimat 1.25 MCG/ACT Inhalation Aerosol Solution (Tiotropium [place] Monohydrate)Indica tions:COPD, group A, by GOLD 2017 classification ([facility]) INHALE 2 PUFFS BY MOUTH IN THE [...] as of this encounter (statuses as of 12/04/2024) Active Problems Problem Noted Date Diagnosed Date Spinal stenosis of lumbar re gion without neurogenic claudication 10/18/2024 MCI (mild cognitive impairment) 01/13/2024 Assessment & Plan (01/13/2024 8:37 AM EDT): Following with neurology Brain mri scheduled Recently completed EEG Will taper off gabapentin as recommended by neuro History of total hip replacement, right 12/26/19 Assessment & Plan (04/02/2024 2:46 PM EDT): Following with [facility] sports med Has CT scan [...] as of this encounter (statuses as of 12/04/2024) Resolved Problems Problem Noted Date Diagnosed Date [...] as of this encounter (statuses as of 12/04/2024) Immunizations Name Administration Dates Next Due COVID-19 mRNA, LNP-s, No Pre serve, 2-Dose Series ([employer]) 11/12/2020,10/22/2020 COVID-19, LNP-s, No Preserve , Cedric-sucrose, Ages 12+ ([employer]) 07/23/2021 COVID-19, MRNA-LNP, PF, 30 M CG/0.3 mL, 12 YRS AND ABOVE, IM ([employer]) 10/04/2023 Covid-19, Mrna, Lnp-s, Pf, B ivalent, 30 Mcg, IM, 12 yrs and above ([employer]) 12/12/2022 Pneumococcal Conjugate Vacci ne, 20-valent ([id number]) 01/27/2022 Pneumococcal Polysaccharide PPV23 (Pneumovax) 01/18/2021,07/13/2015 RSV [...] of Assessment Author No 01/07/2023 8:34 PM Sadaf Soria LPN * Are you blind or [...] encounter Miscellaneous Notes * Telephone Encounter - Hien Zuniga LPN - 12/03/2024 4:54 PM EDT Final report is not yet in. * Telephone Encounter - Edu Otto MED ASSIST - 12/03/2024 4:20 PM EDT Patient left voicemail wanting to know if her scan results are in she had completed yesterday. documented in this encounter Plan of Treatment Upcoming Encounters Date Type Department Care Team (Latest Contact Info) Description 12/09/2024 10:40 AM EDT Office Visit Dermatology, Becky Randle [address] [facility] 140 [place] [address] Rhea Ward PA-C 27 [place] [address] 12/16/2024 10:40 AM EDT Office Visit Family Practice [address] [facility], [place] 293 [place] [address] Perfecto Sauceda, 293 [facility] [address] 12/20/2024 11:30 AM EDT Home Visit [facility] 132 [place] [address] Nida Burton RN [address] [place] [address] 12/25/2024 10:40 AM EDT Office Visit Neurology [facility] [place] [address] [place] [address] Naty Hall MD [address] [place] [address] 12/27/2024 11:00 AM EDT Office Visit Urology Ilene Randlewn 27 [address] 270 [place] [address] Karma Grider PA-C 27 [address] [place] [address] 02/17/2025 12:41 PM EDT Hospital Encounter OR OSHP, Operating Room OSHP [address] [place] [phone] Henrry Lindsay, DO [address] [place] [phone] 02/17/2025 12:41 PM EDT - 02/17/2025 1:02 PM EDT Surgery OR OSHP, Operating Room O[facility]P [address] [place] [phone] Henrry Lindsay, DO [address] [place] [phone] INJECTION SPINE LUMBAR OR SACRAL 05/01/2025 1:00 PM EDT Office Visit Dermatology, Litzy Arambula 226 [place] [phone] Annalisa Pascal PA-C [address] [place] [address] [place] [address] 05/05/2025 9:30 AM EDT Office Visit Pulmonary Medicine, [facility] [address] [place] [phone] Anuel Dennison MD [address] [place] [address] Scheduled Procedures Name Priority Associated Diagnoses Date/Ti [...] D LEVEL ONCE IN A LIFETIME-USE SMARTSET# [id number] Completed 08/16/2018 Zoster Vaccines Completed 06/02/2021, 01/18/2021 [...] Documents on File Type Date Recorded Patient Roller Repairer Expl anation Power of Carton Forming Machine Helper 12/17/2018 POWER OF A TTORNEY * No Code (Latest Code Status on File) Date Activated Date Inactivated Comments 01/07/2023 8:13 PM 01/09/2023 7:16 PM This order r eflects the patients wishes and were consensually agreed upon. Question Answer Comments Discussion of Advance Directives occurred with: Patient Care Teams Lopper Relationship Specialty Start Date End Date Perfecto Sauceda DO [address] [place] [address] PCP - General Internal Medicine 01/30/24 documented as of this encounter
--- OUTSIDE RECORDS SUMMARY | 2024-12-07 15:39 | External Medical Summary | Summary of Care ---
Author Name Unknown Organization [facility] Address [address] [place] [address] Phone [phone] Care Team Providers Care Breakfast And Room Attendant Name Role Phone Perfecto Sauceda DO Primary Care Provider [phone] Reason for Visit * Reason Onset Date Comments Other 12/06/2024 Encounter Details Date Type Department Care Team (Late st Contact Info) Description 12/06/2024 Telephone Family Practice 65 [facility] [place] 293 [place] [address] Perfecto Sauceda DO [address] [place] [address] Other Allergies Active Allergy Reactions Criticality Noted Date Comments Barium Sulfate Diarrhea,Nausea/vomi ting,Rash 09/17/2024 Iodinated Contrast Media Hives Low 09/16/2024 Oxycodone High 11/20/2023 Other Reaction(s): confusion Vancomycin Rash Medium 04/19/2024 documented as of this encounter (statuses as of 12/06/2024) Medications Cholecalciferol (VITAMIN D) 2000 UNITS Tablet [...] 18 g 3 08/16/19 25 Active Nystatin 193898 UNIT/ML Mouth/Throat SuspensionIndicati ons:Thrush Swish and swallow [...] Respimat 1.25 MCG/ACT Inhalation Aerosol Solution (Tiotropium [place] Monohydrate)Indica tions:COPD, group A, by GOLD 2017 classification ([facility]) INHALE 2 PUFFS BY MOUTH IN THE [...] bedtime. 60 Tablet 1 11/19/19 25 Active Probiotic Daily Oral Capsule Take 1 Capsule by mouth in the morning. Active documented as of this encounter (statuses as of 12/06/2024) Active Problems Problem Noted Date Diagnosed Date Spinal stenosis of lumbar re gion without neurogenic claudication 10/18/2024 MCI (mild cognitive impairment) 01/13/2024 Assessment & Plan (01/13/2024 8:37 AM EDT): Following with neurology Brain mri scheduled Recently completed EEG Will taper off gabapentin as recommended by neuro History of total hip replacement, right 12/26/19 Assessment & Plan (04/02/2024 2:46 PM EDT): Following with [facility] sports med Has CT scan scheduled this [...] as of this encounter (statuses as of 12/06/2024) Resolved Problems Problem Noted Date Diagnosed Date [...] as of this encounter (statuses as of 12/06/2024) Immunizations Name Administration Dates Next Due COVID-19 mRNA, LNP-s, No Pre serve, 2-Dose Series ([employer]) 11/12/2020,10/22/2020 COVID-19, LNP-s, No Preserve , Cedric-sucrose, Ages 12+ (Pfizer) 07/23/2021 COVID-19, MRNA-LNP, PF, 30 M CG/0.3 mL, 12 YRS AND ABOVE, IM ([facility]) 10/04/2023 Covid-19, Mrna, Lnp-s, Pf, B ivalent, 30 Mcg, IM, 12 yrs and above (Pf[employer]) 12/12/2022 Pneumococcal Conjugate Vacci ne, 20-valent ([id number]) 01/27/2022 Pneumococcal Polysaccharide PPV23 (Pneumovax) 01/18/2021,07/13/2015 RSV [...] encounter Miscellaneous Notes * Telephone Encounter - Risa Jefferson RN - 12/06/2024 3:00 PM EDT Pt reports a long history of back problems she was working outside yesterday, bent over then couldn't stand straight up- heard a noise but wouldn't answer if it was a snap or a pop, etc Symptoms have persisted throughout the day Pain radiates across lower back and down into buttocks and into legs as it has been Pain is worse since yesterday than it's been at baseline Has been taking Tramadol but now has none left- also reports it wasn't helpful anyway Reviewed med list for prescribed treatment options- She reports she does not have any zanaflex on hand- "I never had that" Patient very anxious during call Is established with interventional pain Per Interventional pain OV note 11/12/24: Tentatively schedule interlaminar MAGALY L4/5. (Scheduled 02/17/25) [facility]. (No referral noted with chart review today) Confirmed Zanaflex rx at [facility]- patient will pick it up today and start as ordered BID RN encouraged rest, heating pad, lidocaine patches, topical pain relievers/liniments (patient reports she has Bengay), zanaflex, tylenol (not to exceed 3000 mg in 24 hours) for symptom management Education provided to patient regarding availability of [facility] clinics in [facility] vs ED for eval if above recommendations are not helpful and she feels evaluation is needed over the weekend. Strongly encouraged her to call 65 fwd 06/03 with concerns- will put note in blue sticky forafter hours triage to reference this TE if patient does call after clinic hours so they are aware what was advised and to schedule with PCP 12/09/24 if needed. * Telephone Encounter - Edu Otto, MED ASSIST - 12/06/2024 2:45 PM EDT Patient called in stating she can't stand up straight "I think a disc broke in my back". Patient states she will be going to [facility] because "they aren't going to be able to help me in theoffice". Patient wanted to let us know she was going to hospital. Offered patient to speak to a nurse and patient hung up as soon as I said that. documented in this encounter Plan of Treatment Upcoming Encounters Date Type Department Care Team (Latest Contact Info) Description 12/09/2024 10:40 AM EDT Office Visit Dermatology, Pily Becky Coon [address] [place] 140 [place] [address] Rhea Ward PA-C 27 [place] [address] 12/16/2024 10:40 AM EDT Office Visit Family Practice [address] [place] [address] 293 [place] [address] Perfecto Sauceda, [address] [place] [address] 12/20/2024 11:30 AM EDT Home Visit [facility] 132 [facility] [place] [address] Nida Burton, RN 132 [place] [address] 12/25/2024 10:40 AM EDT Office Visit Neurology [facility] 200 [facility] [place] [address] Naty Hall MD 200 [facility] [place] [address] 12/27/2024 11:00 AM EDT Office Visit Urology Pily Becky Coon [address] [place] [address] Karma Grider PA-C [address] [place] [address] 02/17/2025 12:41 PM EDT Hospital Encounter OR OSHP, Operating Room OSHP [address] [place] [address] [place] [phone] Henrry Lindsay, DO [address] [place] [phone] 02/17/2025 12:41 PM EDT - 02/17/2025 1:02 PM EDT Surgery OR OSHP, Operating Room OSHP [address] [place] [address] [place] [phone] Henrry Lindsay, DO [address] [place] [phone] INJECTION SPINE LUMBAR OR SACRAL 05/01/2025 1:00 PM EDT [facility] [phone] Annalisa Pascal PA-C [address] [place] [address] [place] [address] 05/05/2025 9:30 AM EDT Office Visit Pulmonary Medicine, [facility] [address] [place] [phone] Anuel Dennison MD [address] [place] [address] Scheduled Procedures Name Priority Associated Diagnoses Date/Ti [...] D LEVEL ONCE IN A LIFETIME-USE SMARTSET# [id number] Completed 08/16/2018 Zoster Vaccines Completed 06/02/2021, 01/18/2021 [...] Documents on File Type Date Recorded Patient Brand Coordinator Expl anation Power of Consumer Electronic Retail Specialist 12/17/2018 POWER OF A TTORNEY * No Code (Latest Code Status on File) Date Activated Date Inactivated Comments 01/07/2023 8:13 PM 01/09/2023 7:16 PM This order r eflects the patients wishes and were consensually agreed upon. Question Answer Comments Discussion of Advance Directives occurred with: Patient Care Teams Breakfast And Room Attendant Relationship Specialty Start Date End Date Perfecto Sauceda DO [address] [place] [facility] [place] [address] PCP - General Internal Medicine 01/30/24 documented as of this encounter
--- OUTSIDE RECORDS SUMMARY | 2024-12-07 15:39 | External Medical Summary | Summary of Care ---
Author Name Unknown Organization [facility] Address [address] [place] [address] Phone [phone] Care Team Providers Care Wearing Apparel Shaker Name Role Phone Perfecto Sauceda DO Primary Care Provider [phone] Reason for Visit * Reason Onset Date Comments Cough 11/28/2024 Information 11/28/202411/28 Encounter Details Date Type Department Care Team (Late st Contact Info) Description 11/28/2024 Telephone Family Practice [address] [place] 293 [place] [address] Perfecto Sauceda DO 293 [place] [address] Cough; Information (11/28) Allergies Active Allergy Reactions [...] 18 g 3 08/16/19 25 Active Nystatin 921345 UNIT/ML Mouth/Throat SuspensionIndicati ons:Thrush Swish and swallow [...] Respimat 1.25 MCG/ACT Inhalation Aerosol Solution (Tiotropium [place] Monohydrate)Indica tions:COPD, group A, by GOLD 2017 classification ([facility]) INHALE 2 PUFFS BY MOUTH IN THE [...] Plan (04/02/2024 2:46 PM EDT): Following with [facility] sports med Has CT scan scheduled [...] mRNA, LNP-s, No Pre serve, 2-Dose Series ([employer]) 11/12/2020,10/22/2020 COVID-19, LNP-s, No Preserve , Cedric-sucrose, Ages 12+ ([employer]) 07/23/2021 COVID-19, MRNA-LNP, PF, 30 M CG/0.3 mL, 12 YRS AND ABOVE, IM ([facility]) 10/04/2023 Covid-19, Mrna, Lnp-s, Pf, B ivalent, 30 Mcg, IM, 12 yrs and above ([employer]) 12/12/2022 Pneumococcal Conjugate Vacci ne, 20-valent ([id number]) 01/27/2022 Pneumococcal Polysaccharide PPV23 (Pneumovax) 01/18/2021,07/13/2015 RSV [...] ABX RX. No answer. Unable to leave [facility] to son he is aware of [...] 9:30 AM EDT Home Visit [facility] at [facility] 132 [place] [address] Nida Burton RN 132 [place] [address] 12/02/2024 10:00 AM EDT Imaging Radiology [facility] 1st [facility] 132 [place] [phone] 12/03/2024 11:00 AM EDT [facility] Visit [facility] 132 [place] [address] Nida Burton RN 132 [place] [address] 12/09/2024 10:40 AM EDT Office Visit Dermatology, Becky Randle [address] [place] [address] Rhea Ward PA-C [address] [place] [address] 12/16/2024 10:40 AM EDT Office Visit Family Practice [address] [place] [address] 293 [place] [address] Perfecto Sauceda DO 293 [place] [address] 12/25/2024 10:40 AM EDT Office Visit Neurology [facility] [address] [facility] [place] [address] Naty Hall MD [address] [facility] [place] [address] 12/27/2024 11:00 AM EDT Office Visit Urology [facility] [place] [address] [place] [address] Karma Grider PA-C [address] [place] [address] 02/17/2025 12:41 PM EDT Hospital Encounter OR OSHP, Operating Room O[facility]P [address] [place] [address] [place] [phone] Henrry Lindsay DO [address] [place] [phone] 02/17/2025 12:41 PM EDT - 02/17/2025 1:02 PM EDT Surgery OR OSHP, Operating Room OSHP [address] [place] [address] [place] [phone] Henrry Lindsay DO [address] [place] [phone] INJECTION SPINE LUMBAR OR SACRAL 05/01/2025 1:00 PM EDT Office Visit Dermatology, [address] [place] [phone] Annalisa Pascal PA-C [address] [place] [address] [place] [address] 05/05/2025 9:30 AM EDT Office Visit Pulmonary Medicine, [facility] [address] [place] [phone] Anuel Dennison MD [address] [place] [phone] Scheduled Procedures Name Priority Associated Diagnoses Date/Ti [...] D LEVEL ONCE IN A LIFETIME-USE SMARTSET# [id number] Completed 08/16/2018 Zoster Vaccines Completed 06/02/2021, 01/18/2021 [...] COPD, group D, by GOLD 2017 classification ([facility]) Advanced care planning/counseling discussion Other specified counseling [...] Documents on File Type Date Recorded Patient Firing Pin Gauger Expl anation Power of Sidehand 12/17/2018 POWER OF A TTORNEY * No Code (Latest Code Status on File) Date Activated Date Inactivated Comments 01/07/2023 8:13 PM 01/09/2023 7:16 PM This order r eflects the patients wishes and were consensually agreed upon. Question Answer Comments Discussion of Advance Directives occurred with: Patient Care Teams Wearing Apparel Shaker Relationship Specialty Start Date End Date Perfecto Sauceda DO 293 [place] [address] PCP - General Internal Medicine 01/30/24 documented as of this encounter
--- OUTSIDE RECORDS SUMMARY | 2024-12-07 15:40 | External Medical Summary | Summary of Care ---
Author Name Unknown Organization [facility] Address [address] [place] [address] Phone [phone] Care Team Providers Care Technical Support Manager Name Role Phone Perfecto Sauceda DO Primary Care Provider [phone] Reason for Visit * Reason Comments Acute Encounter Details Date Type Department Care Team (Latest Contact Info) Description 11/18/2024 8:00 AM EDT Office Visit Family Practice [address] [facility], [place] [address] [place] [address] Perfecto Sauceda DO [address] [place] [address] Dermatitis*; Anxiety state; COPD, group D, by GOLD 2017 classification (HCC); Moderate episode of recurrent major depressive disorder (HCC); Paroxysmal atrial fibrillation (HCC); Prediabetes; Pure hypercholesterolemia; Spinal stenosis of lumbar region without neurogenic claudication; Status post total right knee replacement; Hypertensive left ventricular hypertrophy, without heart failure; History of total hip replacement, right; History of CVA (cerebrovascular accident); B12 deficiency; Age-related osteoporosis without current pathological fracture; Essential hypertension with goal blood pressure less than 140/90; Gastroesophageal reflux disease without esophagitis; Chronic anticoagulation; Perinephric hematoma; Left ankle swelling; Pruritus Allergies Active Allergy Reactions Criticality Noted Date Comments Barium Sulfate Diarrhea,Nausea/vomi ting,Rash 09/17/2024 Iodinated Contrast Media Hives Low 09/16/2024 Oxycodone High 11/20/2023 Other Reaction(s): confusion Vancomycin Rash Medium 04/19/2024 documented as of this encounter (statuses as of 11/18/2024) Medications Cholecalciferol (VITAMIN D) 2000 UNITS Tablet [...] or Shortness of Breath. 1080 mL 3 4 3:05 PM EST 10/04/19 24 Active Fluticasone Furoate-Vilanterol 200-25 MCG/ACT Inhalation Aerosol Powder Breath Activated (BREO ellipta) Inhale 1 Puff by mouth in the morning. 180 Blister Dosing Unit 3 5 8:43 AM EST 10/04/19 24 Active Vitamin B-12 5000 MCG Oral Tablet Disintegrating Take 1 Tablet by mouth in the morning. Active Atorvastatin Calcium 40 MG Oral Tablet (Lipitor)Indicatio ns:Hyperlipidemia, unspecified hyperlipidemia type TAKE 1 TABLET BY MOUTH DAILY 90 Tablet 3 5 12:05 PM EDT 05/11/20 24 Active Potassium Chloride ER 10 MEQ Oral Tablet Extended ReleaseIndications :Bilateral leg edema Take 1 Tablet by mouth in the morning. 100 Tablet 1 5 2:59 PM EST 06/10/20 24 Active busPIRone HCl 10 MG Oral Tablet (Buspar)Indication s:Anxiety state Take 1 Tablet by mouth in the morning and 1 Tablet before bedtime. 200 Tablet 5 5 2:59 PM EST 06/10/20 24 Active Furosemide 40 MG Oral Tablet (Lasix)Indications :Bilateral leg edema Take 1 Tablet by mouth in the morning. 100 Tablet 3 5 1:21 PM EST 06/21/20 24 Active DULoxetine HCl 60 MG Oral Capsule Delayed Release Particles (Cymbalta) TAKE ONE CAPSULE BY MOUTH EVERY DAY. DO NOT CUT, CRUSH OR CHEW 100 Capsule 1 5 12:32 PM EST 07/08/20 24 Active Metoprolol Succinate ER 50 MG Oral Tablet Extended Release 24 Hour (toPROL XL)Indications:Ess ential hypertension with goal blood pressure less than 140/90 TAKE ONE TABLET BY MOUTH EVERY DAY IN THE MORNING 100 Tablet 2 5 5:56 PM EST 07/08/20 24 025 Active [...] 18 g 3 08/16/19 25 Active Nystatin 977851 UNIT/ML Mouth/Throat SuspensionIndicati ons:Thrush Swish and swallow 5 mL in the morning and 5 mL at noon and 5 mL in the evening and 5 mL before bedtime. For thrush.. 240 mL 1 08/20/19 25 Active Pantoprazole Sodium 40 MG Oral Tablet Delayed Release (Protonix)Indicati ons:Gastroesophage al reflux disease without esophagitis Take 1 Tablet by mouth in the morning. 100 Tablet 3 5 8:43 AM EST 08/26/19 25 Active Spiriva Respimat 1.25 MCG/ACT Inhalation Aerosol Solution (Tiotropium [place] Monohydrate)Indica tions:COPD, group A, by GOLD 2017 classification ([facility]) INHALE 2 PUFFS BY MOUTH IN THE MORNING 12 g 1 5 2:15 PM EST 09/19/19 25 Active Docusate [...] 1 Tablet before bedtime. 200 Tablet 1 5 12:11 PM EST 10/11/19 25 Active Ondansetron [...] bedtime. 60 Tablet 1 11/19/19 25 Active Aspirin 81 MG Tablet Take 1 Tablet by mouth in the morning. 025 Discontin ued(Adver se reaction) predniSONE 10 MG Oral Tablet (Deltasone)Indicat ions:Atopic dermatitis, unspecified type Take 1 Tablet by mouth in the morning for 7 days. As directed. 7 Tablet 11/13/19 25 025 Discontin ued(Medic ation List Clean Up) predniSONE 50 MG Oral Tablet (Deltasone) Take 1 Tablet by mouth in the morning. 11/15/19 25 025 Discontin ued(Medic ation List Clean Up) documented as of this encounter (statuses as of 11/18/2024) Active Problems Problem Noted Date Diagnosed Date [...] as of this encounter (statuses as of 11/18/2024) Resolved Problems Problem Noted Date Diagnosed Date [...] as of this encounter (statuses as of 11/18/2024) Immunizations Name Administration Dates Next Due COVID-19 mRNA, LNP-s, No Pre serve, 2-Dose Series (TheRouteBox) 11/12/2020,10/22/2020 COVID-19, LNP-s, No Preserve , Cedric-sucrose, Ages 12+ (Pfizer) 07/23/2021 COVID-19, MRNA-LNP, PF, 30 M CG/0.3 mL, 12 YRS AND ABOVE, IM (Kamcord-Comirnat) 10/04/2023 Covid-19, Mrna, Lnp-s, Pf, B ivalent, 30 Mcg, IM, 12 yrs and above (TheRouteBox) 12/12/2022 Pneumococcal Conjugate Vacci ne, 20-valent ([id number]) 01/27/2022 Pneumococcal Polysaccharide PPV23 (Pneumovax) 01/18/2021,07/13/2015 RSV [...] Passive Smoke Exposure: Past Smokeless Tobacco: Never Tobacco Cessation:Counseling Given: Yes Comments:09/15/2023 2 packs per week Alcohol Use Standard Drinks/Week Comments No [...] 11/15/2024 Does the household have a re lar source of income? (Household - for ages [...] Sign Reading Time Taken Comments Blood Pressure 122/64 11/18/2024 8:04 AM EDT Pulse 82 11/18/2024 8:04 AM EDT Temperature 36.1 °C (96.9 °F) 11/18/2024 8:04 AM ED T Respiratory Rate 16 11/18/2024 8:04 AM EDT Oxygen Saturation 96% 11/18/2024 8:04 AM EDT Inhaled Oxygen Concentration - - Weight 78.8 kg (173 lb 12.8 oz) 11/18/2024 8:04 AM EDT Height 160 cm (5' 3") 11/18/2024 8:04 AM EDT Body Mass Index 30.79 11/18/2024 8:04 AM EDT documented in this encounter Functional Status * [...] of Assessment Author Yes 01/07/2023 8:34 PM EDLei Skelton LPN documented as of this encounter Mental Status * Because of a physical, mental, or emotional condition, do you have serious difficulty concentrating, remembering, or making decisions? (5 years old or older) Answer Entry Date Author Yes 01/07/2023 8:34 PM EDT Lei Bower LPN documented in this encounter Progress Notes * Perfecto Sauceda, - 11/18/2024 8:32 AM EDT Images from the original note were not included. Subjective Carmen Easley is a 74 year old female that presents for Acute History of Present Illness The patient is a 74 year old female with a history of COPD, Hyperlipidemia, Pulmonary Embolism, Lupus Anticoagulant, Cervical Disc Disease, MCI , Osteoporosis, Atrial Fibrillation, GERD, Depression, Anxiety, right knee replacement, left knee OA, right hip replacement post hip fracture 11/19/2023, right hip prosthesis dislocation 12/04/2023, and tobacco use presents with dermatitis that is pruritic. She experiences significant joint pain and swelling, particularly in her hands, which impairs her ability to move them. She describes the condition as 'way out of control' and is uncertain of the cause. No history of gout, falls, or injuries to her joints is reported. Swelling in her left ankle began a couple of days ago without any associated trauma. The swelling is described as 'poofed up' like a balloon, causing discomfort when pressure is applied, although it is not painful. The swelling was more pronounced the previous night but has since decreased slightly. No swelling is noted in the right ankle. She has respiratory symptoms, including a cough with thick, yellow sputum. She uses a nebulizer with Duoneb four times a day, which she finds helpful, and also takes Spiriva and Breo for her COPD. Nosignificant breathing difficulties beyond her COPD management are reported. She reports skin issues, including easy bruising, which she attributes to past use of blood thinners like Coumadin. She is concerned about insect infestation in her house due to feral cats living on her property. She is currently on apixaban and metoprolol for atrial fibrillation. She discusses her bowel habits, noting infrequent bowel movements every two to three days. She useslactulose twice a week and Miralax to manage this. She expresses anxiety and stress, partly due to uncertainty about her health condition. She is on Buspar, Duloxetine, and trazodone, which she feels help somewhat with her nerves. Patient Active Problem List Diagnosis LOC PRIM OSTEOART-SHLDER Generalized osteoarthritis of multiple sites Displacement of cervical intervertebral disc without myelopathy Cervical spondylosis Brachial neuritis Tobacco use disorder Organic sleep disorder Anxiety state Lupus anticoagulant positive Pure hypercholesterolemia Gastroesophageal reflux disease without esophagitis Moderate episode of recurrent major depressive disorder (HCC) Age-related osteoporosis without current pathological fracture Essential hypertension with goal blood pressure less than 140/90 Paroxysmal atrial fibrillation (HCC) Family history of colon cancer B12 deficiency Primary osteoarthritis of right knee Hypokalemia Chronic anticoagulation DNR no code (do not resuscitate) History of pulmonary embolism History of CVA (cerebrovascular accident) Migraine without aura and without status migrainosus, not intractable Hypertensive left ventricular hypertrophy, without heart failure Status post total right knee replacement COPD, group D, by GOLD 2017 classification ([facility]) 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, right Displacement of internal right hip prosthesis ([facility]) MCI (mild cognitive impairment) Prediabetes Spinal stenosis of lumbar region without neurogenic claudication Past Surgical History: Procedure Laterality Date ARTHROPLASTY KNEE TOTAL Right 02/27/2023 COLONOSCOPY, DIAGNOSTIC (RECTUM) 06/01/2011 Ext hemorrhoids, normal COLONOSCOPY, DIAGNOSTIC (RECTUM) 11/22/2016 normal, repeat 5 yrs/COLONOSCOPY FLEXIBLE PROXIMAL DIAGNOSTIC performed by Tashia Tim DO at [facility] COLONOSCOPY, DIAGNOSTIC (RECTUM) 12/29/2022 poor prep/biopsies normal/recall 1 year/COLONOSCOPY FLEXIBLE PROXIMAL DIAGNOSTIC performed by Jana Tim DO at [facility] EGD, FLEXIBLE, DIAGNOSTIC 11/22/2016 mild stomach irritation/ESOPHAGOGASTRODUODENOSCOPY (EGD), FLEXIBLE, TRANSORAL, DIAGNOSTIC performedby Tashia Tim DO at [facility] EGD, FLEXIBLE, DIAGNOSTIC 10/26/2023 normal/ESOPHAGOGASTRODUODENOSCOPY (EGD), FLEXIBLE, TRANSORAL, DIAGNOSTIC performed by Isaias Flood MD at [facility] MISCELLANEOUS ORDER ([facility] ONLY) Bilateral 05/30/2018 [facility]- blepharoplasty eyelids PARTIAL HYSTERECTOMY 1976 took ovaries REMOVE CATARACT, INSERT LENS PROSTH Bilateral Dr. Wynne SHOULDER ARTHROSCOPY/SURGERY Bilateral 2014 L, [address] Thomson SINUS SURGERY PROCEDURE NEC 1994 STRESS ECHO (EXERCISE) 11/2004 normal TOTAL HIP REPLACEMENT & PROSTHESIS Right 11/19/2023 Review of patient's allergies indicates: Allergen Reactions Oxycodone Other Reaction(s): confusion Vancomycin Rash Barium Sulfate Diarrhea, Nausea/vomiting and Rash Iodinated Contrast Media Hives Current Medications: hydrOXYzine HCl 10 MG Oral Tablet (Atarax) Hydrocortisone 2.5 % External Ointment NATURAL SUPPLEMENT traMADol HCl 50 MG Oral Tablet (Ultram) traZODone HCl 50 MG Oral Tablet (Desyrel) Ondansetron HCl 4 MG Oral Tablet Apixaban 2.5 MG Oral Tablet (Eliquis) Lactulose 10 GM/15ML Oral Solution (Constulose) Docusate Sodium 100 MG Oral Capsule (Colace) Spiriva Respimat 1.25 MCG/ACT Inhalation Aerosol Solution (Tiotropium [place] Monohydrate) Pantoprazole Sodium 40 MG Oral Tablet Delayed Release (Protonix) Nystatin 168353 UNIT/ML Mouth/Throat Suspension Albuterol Sulfate HFA 108 (90 Base) MCG/ACT Inhalation Aerosol Solution tiZANidine HCl 4 MG Oral Tablet (Zanaflex) DULoxetine HCl 60 MG Oral Capsule Delayed Release Particles (Cymbalta) Metoprolol Succinate ER 50 MG Oral Tablet Extended Release 24 Hour (toPROL XL) Furosemide 40 MG Oral Tablet (Lasix) busPIRone HCl 10 MG Oral Tablet (Buspar) Potassium Chloride ER 10 MEQ Oral Tablet Extended Release Atorvastatin Calcium 40 MG Oral Tablet (Lipitor) Vitamin B-12 5000 MCG Oral Tablet Disintegrating Albuterol Sulfate 0.63 MG/3ML Inhalation Nebulization Solution (Accuneb) Fluticasone Furoate-Vilanterol 200-25 MCG/ACT Inhalation Aerosol Powder Breath Activated (BREO ellipta) Calcium 600 MG Tablet Cholecalciferol (VITAMIN D) 2000 UNITS Tablet Full Kit Nebulizer Set Review of Systems Constitutional: Positive for fatigue. Negative for appetite change, chills, fever and unexpected weight change. HENT: Negative for congestion, sore throat and trouble swallowing. Respiratory: Positive for cough and shortness of breath. Negative for wheezing. Cardiovascular: Positive for leg swelling. Negative for chest pain and palpitations. Gastrointestinal: Positive for constipation. Negative for abdominal pain, blood in stool, diarrhea,nausea and vomiting. Genitourinary: Negative for dysuria, frequency and hematuria. Musculoskeletal: Positive for arthralgias, back pain and gait problem. Skin: Positive for rash. Neurological: Negative for dizziness, syncope and headaches. Psychiatric/Behavioral: Positive for sleep disturbance. Negative for confusion and decreased concentration. The patient is nervous/anxious. Objective BP 122/64 (BP Site: Left Arm, BP Position: Sitting, BP Cuff Size: Regular) | Pulse 82 | Temp 96.9 °F (36.1 °C) (Tympanic) | Resp 16 | Ht 5' 3" (1.6 m) | Wt 173 lb 12.8 oz (78.8 kg) | SpO2 96% | BMI30.79 kg/m² | BSA 1.87 m² Physical Exam VITALS: BP- 122/64 EXTREMITIES: Swelling in left ankle, right ankle normal. Physical Exam Vitals and nursing note reviewed. Constitutional: General: She is not in acute distress. Appearance: Normal appearance. She is not toxic-appearing. HENT: Head: Normocephalic and atraumatic. Cardiovascular: Rate and Rhythm: Normal rate and regular rhythm. Heart sounds: Normal heart sounds. No murmur heard. No gallop. Pulmonary: Effort: Pulmonary effort is normal. Breath sounds: Normal breath sounds. No wheezing, rhonchi or rales. Abdominal: General: Bowel sounds are normal. Palpations: Abdomen is soft. Musculoskeletal: Right lower leg: Edema present. Left lower leg: Edema present. Comments: Left greater than right ankle edema Skin: Comments: Bilateral leg maculopapular dermatitis with excoriation. Neurological: Mental Status: She is alert. Mental status is at baseline. Motor: No weakness. Gait: Gait normal. Psychiatric: Mood and Affect: Mood is anxious. Affect is labile. Results Component Latest Ref Rng 11/05/2024 BUN 6 - 20 mg/dL 9 CREATININE 0.5 - 1.0 mg/dL 0.8 EGFR >=60 mL/min 77 SODIUM 135 - 146 mmol/L 142 POTASSIUM 3.5 - 5.1 mmol/L 3.5 CHLORIDE 98 - 107 mmol/L 102 CO2 22 - 32 mmol/L 30 ANION GAP 7 - 15 mmol/L 10 GLUCOSE 70 - 120 mg/dL 99 Albumin 3.8 - 5.0 g/dL 4.1 AST 10 - 35 U/L 19 Alkaline Phosphatase 35 - 130 U/L 74 Bilirubin, Total <=1.2 mg/dL 0.4 CALCIUM 8.4 - 10.2 mg/dL 9.6 Protein 6.0 - 8.3 g/dL 6.3 ALT 10 - 35 U/L 16 WBC 4.00 - 10.80 K/uL 13.72 (H) Neutrophils % 40.0 - 75.0 % 75.0 Lymphocytes % 18.0 - 42.0 % 15.7 (L) Monocytes % 1.0 - 11.0 % 7.8 Eosinophils % 0.0 - 6.0 % 0.7 Basophils % 0.0 - 2.0 % 0.3 Immature Granulocytes % 0.0 - 2.0 % 0.5 Absolute Neutrophils 1.80 - 7.70 K/uL 10.30 (H) Absolute Lymphocytes 1.00 - 4.80 K/ul 2.15 Absolute Monocytes 0.00 - 1.10 K/uL 1.07 Absolute Eosinophils 0.00 - 0.70 K/uL 0.09 Absolute Basophils 0.00 - 0.20 K/uL 0.04 Absolute Immature Granulocytes 0.00 - 0.20 K/uL 0.07 WBC 4.00 - 10.80 K/uL 13.72 (H) RBC 3.85 - 5.15 M/uL 4.72 HGB 12.0 - 15.3 g/dL 14.6 HCT 36.0 - 45.2 % 46.0 (H) MCV 81.5 - 97.5 fL 97.5 MCH 27.0 - 34.0 pg 30.9 MCHC 32.0 - 36.0 g/dL 31.7 RDW 11.5 - 15.5 % 13.0 PLT 140 - 400 K/uL 304 MPV 6.6 - 11.1 fL 9.7 nRBCs <=0 /100 WBCs 0 CRP (Inflammatory Marker) <=5 mg/L 10 (H) ESR <30 mm/hour 20 Legend: (H) High (L) Low Assessment and Plan Assessment & Plan Joint Pain and Swelling Significant joint pain and swelling in left ankle for a few days. No recent trauma. Differential includes arthritis and possible gout. - Order x-ray of left ankle - Check uric acid level - increase Furosemide to 80 mg daily for 3 days then return to Furosemide 40 mg daily thereafter. -edema may be due to recent prednisone use Skin Atrophy and Bruising Skin atrophy and easy bruising likely due to apixaban and previous Coumadin use. Reports bleeding from minor lesions. Advised to stop aspirin to reduce bleeding risk. Hydroxyzine prescribed for itching. - Discontinue aspirin - Prescribe hydroxyzine twice daily for itching Atrial Fibrillation On apixaban and metoprolol. Blood pressure well-controlled at 122/64 with metoprolol ER. Chronic Obstructive Pulmonary Disease (COPD) Using nebulizer with Duoneb, Spiriva, and Breo. Treatments effective in managing symptoms. Anxiety Anxiety exacerbated by health concerns and environmental stressors. Partial relief with Buspar and trazodone. Constipation Bowel movements every two to three days. Effective use of lactulose twice a week and Miralax as needed. Follow-up Requires follow-up for joint pain and skin issues. - Schedule follow-up appointment in one week to reassess joint swelling and skin condition Wrap-Up Follow-up: Return in about 1 week (around 11/25/2024), or if symptoms worsen or fail to improve. | Check-out note: See if dermatology appointment can be moved up I spent a total of 40-54 minutes (exact time 40 mins) on the date of service in preparation, delivery, and documentation of the care provided to Carmen Easley excluding any time spent in the performance of separately billed services. Text in this note was generated using an [employer] documentation service. I discussed the use of a device to record and summarize our discussion today. All persons present during the encounter consented to its use. documented in this encounter Nursing Notes * Theresa Kelsey LPN - 11/18/2024 7:58 AM EDT Patient here for acute visit. Reports 10/10 pain all over. States kidneys, eyes, puffiness on left foot, skin are all bothering her. documented in this encounter Plan of Treatment Upcoming Encounters Date Type Department Care Team (Latest Contact Info) Description 11/29/2024 3:00 PM EDT Office Visit Family Practice [address], [place] [address] [place] [address] [facility] [address] 12/02/2024 10:00 AM EDT Imaging Radiology [address], [place] [address] [place] [phone] 12/09/2024 10:40 AM EDT Office Visit Dermatology, [place] Randle [address] [place] [address] Rhea Ward PA-C [address] [place] [address] 12/16/2024 10:40 AM EDT Office Visit Family [address] [place], [place] [address] Perfecto Sauceda, [address] [facility], [place] [address] 12/25/2024 10:40 AM EDT Office Visit Neurology [facility] [address] [facility] [place] [address] Naty Hall MD [address] [facility] [place] [address] 12/27/2024 11:00 AM EDT Office Visit Urology Becky Randle [address] [place] [address] Karma Grider PA-C [address] [place] [address] 02/17/2025 12:41 PM EDT Hospital Encounter [facility], Operating Room [facility] [address] [place] [address] [place] [address] Henrry Lindsay, [address] [place] [phone] 02/17/2025 12:41 PM EDT - 02/17/2025 1:02 PM EDT Surgery [facility], Operating Room [facility] [address] [place] [address] [place] [phone] Henrry Lindsay DO [address] [place] [phone] INJECTION SPINE LUMBAR OR [facility]CRAL 05/01/2025 1:00 PM EDT Office Visit Litzy Posadas [address] [place] [phone] Annalisa Pascal PA-C [address] [place] [address] [place] [address] 05/05/2025 9:30 AM EDT Office Visit Pulmonary Medicine, [facility] [address] [place] [phone] Anuel Dennison MD [address] [place] [address] Pending Results Name Type Priority Associated Diagnoses Date/Time CRP (INFLAMMATORY MARKER) Lab Routine Left ankle swelling 11/18/2024 8:57 AM EDT ERYTHROCYTE SEDIMENTATION RATE (ESR) Lab Routine Left ankle swelling 11/18/2024 8:57 AM EDT XR ANKLE 3 OR MORE VIEWS Medical Imaging Routine Left ankle swelling 11/18/2024 8:48 AM EDT CBC WITH WBC DIFFERENTIAL Lab Routine Dermatitis 11/18/2024 8:57 AM EDT URIC ACID Lab Routine Left ankle swelling 11/18/2024 8:57 AM EDT CBC Lab Routine Dermatitis 11/18/2024 8:57 AM EDT DIFFERENTIAL, AUTOMATED Lab Routine Dermatitis 11/18/2024 8:57 AM EDT Scheduled Orders Name Type Priority Associated Diagnoses Orde r Schedule CRP (INFLAMMATORY MARKER) Lab Routine Left ankle swelling Expected: 11/18/2024 (Approximate), Expires: 11/18/2025 ERYTHROCYTE SEDIMENTATION RATE (ESR) Lab Routine Left ankle swelling Expected: 11/18/2024 (Approximate), Expires: 11/18/2025 CBC WITH WBC DIFFERENTIAL Lab Routine Dermatitis Expected: 11/18/2024 (Approximate), Expires: 11/18/2025 URIC ACID Lab Routine Left ankle swelling Expected: 11/18/2024 (Approximate), Expires: 11/18/2025 Scheduled Procedures Name Priority Associated Diagnoses Date/Ti [...] D LEVEL ONCE IN A LIFETIME-USE SMARTSET# [id number] Completed 08/16/2018 Zoster Vaccines Completed 06/02/2021, 01/18/2021 [...] COPD, group D, by GOLD 2017 classification ([facility]) Advanced care planning/counseling discussion Other specified counseling Paroxysmal atrial fibrillation (HCC) Atrial fibrillation Pneumonia of right lower lobe due to infectious organism- Primary Diarrhea, unspecified type History of total hip replacement, right COPD, group D, by GOLD 2017 classification ([facility]) Advanced care planning/counseling discussion Other specified counseling Dermatitis- Primary Contact dermatitis and other eczema, due to unspecified cause Anxiety state Anxiety state, unspecified COPD, group D, by GOLD 2017 classification ([facility]) Moderate episode of recurrent major depressive disorder (HCC) Paroxysmal atrial fibrillation (HCC) Atrial fibrillation Prediabetes Other abnormal glucose Pure hypercholesterolemia Spinal stenosis of lumbar region without neurogenic claudication Spinal stenosis, lumbar region, without neurogenic claudication Status post total right knee replacement Hypertensive left ventricular hypertrophy, without heart failure History of total hip replacement, right History of CVA (cerebrovascular accident) Transient ischemic attack (TIA), and cerebral infarction without residual deficits B12 deficiency Other B-complex deficiencies Age-related osteoporosis without current pathological fracture Senile osteoporosis Essential hypertension with goal blood pressure less than 140/90 Gastroesophageal reflux disease without esophagitis Esophageal reflux Chronic anticoagulation Long-term (current) use of anticoagulants Perinephric hematoma Other specified disorder of kidney and ureter Left ankle swelling Effusion of ankle and foot joint Pruritus Unspecified pruritic disorder Lumbar radiculopathy Thoracic or lumbosacral neuritis or radiculitis, unspecified documented in this encounter Additional Health Concerns Infection Onset Date Last Indicated Resolved Time C. difficile Rule-Out 04/19/2024 04/19/2024 documented as of this encounter Advance Directives Documents on File Type Date Recorded Patient Medical Technologist Chief Expl anation Power of Airborne And Air Delivery Specialist 12/17/2018 POWER OF A TTORNEY * No Code (Latest Code Status on File) Date Activated Date Inactivated Comments 01/07/2023 8:13 PM 01/09/2023 7:16 PM This order r eflects the patients wishes and were consensually agreed upon. Question Answer Comments Discussion of Advance Directives occurred with: Patient Care Teams Technical Support Manager Relationship Specialty Start Date End Date Perfecto Sauceda DO [address] [place] [facility] [place] [address] PCP - General Internal Medicine 01/30/24 documented as of this encounter
--- OUTSIDE RECORDS SUMMARY | 2024-12-07 15:40 | External Medical Summary | Summary of Care ---
Author Name Unknown Organization [facility] Address [address] [place] [address] Phone [phone] Care Team Providers Care Crayon Sorting Machine Feeder Name Role Phone Perfecto Sauceda DO Primary Care Provider [phone] Reason for Visit * Reason Onset Date Comments Test Results 11/19/202411/19 Encounter Details Date Type Department Care Team (Late st Contact Info) Description 11/19/2024 Telephone Family Practice 65 [facility] [address] [place] [phone] Perfecto Sauceda DO [address] [place] [address] Test Results (11/19) Allergies Active Allergy Reactions Criticality Noted Date Comments Barium Sulfate Diarrhea,Nausea/vomi ting,Rash 09/17/2024 Iodinated Contrast Media Hives Low 09/16/2024 Oxycodone High 11/20/2023 Other Reaction(s): confusion Vancomycin Rash Medium 04/19/2024 documented as of this encounter (statuses as of 11/19/2024) Medications Cholecalciferol (VITAMIN D) 2000 UNITS Tablet [...] 18 g 3 08/16/19 25 Active Nystatin 536526 UNIT/ML Mouth/Throat SuspensionIndicati ons:Thrush Swish and swallow [...] Respimat 1.25 MCG/ACT Inhalation Aerosol Solution (Tiotropium [place] Monohydrate)Indica tions:COPD, group A, by GOLD 2017 classification ([facility]) INHALE 2 PUFFS BY MOUTH IN [...] as of this encounter (statuses as of 11/19/2024) Active Problems Problem Noted Date Diagnosed Date [...] 2:46 PM EDT): Following with [facility] sports med Has CT scan scheduled [...] as of this encounter (statuses as of 11/19/2024) Resolved Problems Problem Noted Date Diagnosed Date [...] as of this encounter (statuses as of 11/19/2024) Immunizations Name Administration Dates Next Due COVID-19 mRNA, LNP-s, No Pre serve, 2-Dose Series ([employer]) 11/12/2020,10/22/2020 COVID-19, LNP-s, No Preserve , Cedric-sucrose, Ages 12+ (Pfizer) 07/23/2021 COVID-19, MRNA-LNP, PF, 30 M CG/0.3 mL, 12 YRS AND ABOVE, IM ([facility]) 10/04/2023 Covid-19, Mrna, Lnp-s, Pf, B ivalent, 30 Mcg, IM, 12 yrs and above ([employer]ec) 12/12/2022 Pneumococcal Conjugate Vacci ne, 20-valent ([id number]) 01/27/2022 Pneumococcal Polysaccharide PPV23 (Pneumovax) 01/18/2021,07/13/2015 RSV [...] Lei Soria LPN documented in this encounter Miscellaneous Notes * Telephone Encounter - Theresa Kelsey LPN - 11/19/2024 1:26 PM EDT Call placed to patient and relayed information from Dr. Sauceda. Pt acknowledged understanding. No questions at this time. * Telephone Encounter - Theresa Kelsey LPN - 11/19/2024 1:25 PM EDT ----- Message from Perfecto Sauceda DO sent at 11/18/2024 8:18 PM EDT ----- Uric acid is up. All other labs are good. No pain is present. Will repeat Uric acid at next visit. documented in this encounter Plan of Treatment Upcoming Encounters Date Type Department Care Team (Latest Contact Info) Description 11/22/2024 8:00 AM EDT Home Visit [facility] at [place], [facility] [address] [place] [address] Nida Burton RN [address] [place] [address] 11/29/2024 3:00 PM EDT Office Visit Family Practice [address], [place] [facility] [place] [address] Perfecto Sauceda DO 293 [facility], [place] [address] 12/02/2024 10:00 AM EDT Imaging Radiology [address] [place] [phone] 12/09/2024 10:40 AM EDT Office Visit Dermatology, Becky Randle [address] [place] [address] [place] [address] Rhea Ward PADagoC [address] [place] [address] 12/16/2024 10:40 AM EDT Office Visit Family Practice [address] [place] [address] [address] [place] [address] Perfecto Sauceda, 293 [place] [address] 12/25/2024 10:40 AM EDT Office Visit Neurology [facility] 200 [facility] [place] [address] Naty Hall MD 200 [facility] [place] [address] 12/27/2024 11:00 AM EDT Office Visit Urology Becky Randle [address] [facility] [address] [place] [address] Karma Grider PA-C [address] [place] [address] 02/17/2025 12:41 PM EDT Hospital Encounter [facility], Operating Room [facility] [address] [place], [place] [address] [place] [phone] Henrry Lindsay, [address] [place] [phone] 02/17/2025 12:41 PM EDT - 02/17/2025 1:02 PM EDT Surgery OR [facility], Operating Room [facility] [address] [place] [address] [place] [phone] Henrry Lindsay, [address] [place] [phone] INJECTION SPINE LUMBAR OR SACRAL 05/01/2025 1:00 PM EDT Office Visit Litzy Posadas [address] [place] [phone] Annalisa Pascal PA-C [address] [place] [address] [place] [address] 05/05/2025 9:30 AM EDT Office Visit Pulmonary Medicine, [facility] [address] [place] [phone] Anuel Dennison MD [address] [place] [address] Scheduled Procedures Name Priority Associated Diagnoses Date/Ti [...] D LEVEL ONCE IN A LIFETIME-USE SMARTSET# [id number] Completed 08/16/2018 Zoster Vaccines Completed 06/02/2021, 01/18/2021 [...] Documents on File Type Date Recorded Patient Psychology Assistant Expl anation Power of Microwave Engineer 12/17/2018 POWER OF A TTORNEY * No Code (Latest Code Status on File) Date Activated Date Inactivated Comments 01/07/2023 8:13 PM 01/09/2023 7:16 PM This order r eflects the patients wishes and were consensually agreed upon. Question Answer Comments Discussion of Advance Directives occurred with: Patient Care Teams Crayon Sorting Machine Feeder Relationship Specialty Start Date End Date Perfecto Sauceda DO [address] [facility] [place] [facility] [address] PCP - General Internal Medicine 01/30/24 documented as of this encounter
--- OUTSIDE RECORDS SUMMARY | 2024-12-07 15:40 | External Medical Summary | Summary of Care ---
Author Name Unknown Organization [facility] Address [address] [place] [address] Phone [phone] Care Team Providers Care Industrial Maintenance Repairer Helper Name Role Phone Perfecto Sauceda DO Primary Care Provider Reason for Visit * Reason Comments Acute Encounter Details Date Type Department Care Team (Latest Contact Info) Description 11/18/2024 8:00 AM EDT Office Visit Family Practice 65 [facility], [place] [address] [place] [address] Perfecto Sauceda DO [address] [place] [address] Dermatitis*; Anxiety state; COPD, group D, by [...] 18 g 3 08/16/19 25 Active Nystatin 937313 UNIT/ML Mouth/Throat SuspensionIndicati ons:Thrush Swish and swallow [...] Respimat 1.25 MCG/ACT Inhalation Aerosol Solution (Tiotropium [place] Monohydrate)Indica tions:COPD, group A, by GOLD 2017 [...] Plan (04/02/2024 2:46 PM EDT): Following with [facility] sports med Has CT scan scheduled [...] mRNA, LNP-s, No Pre serve, 2-Dose Series ([employer]) 11/12/2020,10/22/2020 COVID-19, LNP-s, No Preserve , Cedric-sucrose, Ages 12+ (Pfizer) 07/23/2021 COVID-19, MRNA-LNP, PF, 30 M CG/0.3 mL, 12 YRS AND ABOVE, IM ([employer]) 10/04/2023 Covid-19, Mrna, Lnp-s, Pf, B ivalent, 30 Mcg, IM, 12 yrs and above ([employer]) 12/12/2022 Pneumococcal Conjugate Vacci ne, 20-valent ([id number]) 01/27/2022 Pneumococcal Polysaccharide PPV23 (Pneumovax) 01/18/2021,07/13/2015 RSV [...] Author Yes 01/07/2023 8:34 PM EDT Lei Boewr LPN documented in this encounter Progress Notes [...] COPD, group D, by GOLD 2017 classification ([facility]) 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, right Displacement of internal right hip prosthesis ([facility]) MCI (mild cognitive impairment) Prediabetes Spinal stenosis of lumbar region without neurogenic claudication Past Surgical History: Procedure Laterality Date ARTHROPLASTY KNEE TOTAL Right 02/27/2023 COLONOSCOPY, DIAGNOSTIC (RECTUM) 06/01/2011 Ext hemorrhoids, normal COLONOSCOPY, DIAGNOSTIC (RECTUM) 11/22/2016 normal, repeat 5 yrs/COLONOSCOPY FLEXIBLE PROXIMAL DIAGNOSTIC performed by Tashia Tim DO at [facility] COLONOSCOPY, DIAGNOSTIC (RECTUM) 12/29/2022 poor prep/biopsies normal/recall 1 year/COLONOSCOPY FLEXIBLE PROXIMAL DIAGNOSTIC performed by Jana Tim DO at [facility] EGD, FLEXIBLE, DIAGNOSTIC 11/22/2016 mild stomach irritation/ESOPHAGOGASTRODUODENOSCOPY (EGD), FLEXIBLE, TRANSORAL, DIAGNOSTIC performedby Tashia Tim DO at [facility] EGD, FLEXIBLE, DIAGNOSTIC 10/26/2023 normal/ESOPHAGOGASTRODUODENOSCOPY (EGD), FLEXIBLE, TRANSORAL, DIAGNOSTIC performed by Isaias Flood MD at [facility] MISCELLANEOUS ORDER ([facility] ONLY) Bilateral 05/30/2018 Reinheimer- [...] Respimat 1.25 MCG/ACT Inhalation Aerosol Solution (Tiotropium [place] Monohydrate) Pantoprazole Sodium 40 MG Oral Tablet Delayed Release (Protonix) Nystatin 706822 UNIT/ML Mouth/Throat Suspension Albuterol Sulfate HFA 108 [...] in this note was generated using an [employer] documentation service. I discussed the use of [...] EDT Office Visit Family Practice [address], [place] [address] [place] [address] Perfecto Sauceda DO [facility] [address] 12/02/2024 10:00 AM EDT Imaging Radiology [address], [place] [address] [place] [phone] 12/09/2024 10:40 AM EDT Office Visit Dermatology, Becky Randle [address] [place] [address] [place] [address] Rhea Ward PA-C [address] [place] [address] 12/16/2024 10:40 AM EDT Office Visit Family [address] [place] [place], [place] [address] Perfecto Sauceda, 293 [facility], [place] [address] 12/25/2024 10:40 AM EDT Office Visit Neurology [facility] 200 [facility] [place] [address] Naty Hall MD 200 [facility] [place] [address] 12/27/2024 11:00 AM EDT Office Visit Urology Becky Randle [address] [place] [address] [place] [address] Karma Grider PA-C [address] [place] [address] 02/17/2025 12:41 PM EDT Hospital Encounter [facility], Operating Room [facility] [address] [place] [address] [place] [address] Henrry Lindsay, [address] [place] [phone] 02/17/2025 12:41 PM EDT - 02/17/2025 1:02 PM EDT Surgery OR [facility], Operating Room [facility] [address] [place] [address] [place] [phone] Henrry Lindsay DO [address] [place] [phone] INJECTION SPINE LUMBAR OR SACRAL 05/01/2025 1:00 PM EDT Office Visit Litzy Posadas [address] [place] [phone] Annalisa Pascal PA-C [address] [place] [address] [place] [address] 05/05/2025 9:30 AM EDT Office Visit Pulmonary Medicine, [facility] [address] [place] [address] Anuel Dennison MD [address] [place] [address] Pending Results Name Type Priority Associated Diagnoses [...] D LEVEL ONCE IN A LIFETIME-USE SMARTSET# [id number] Completed 08/16/2018 Zoster Vaccines Completed 06/02/2021, 01/18/2021 [...] COPD, group D, by GOLD 2017 classification ([facility]) Advanced care planning/counseling discussion Other specified counseling Paroxysmal atrial fibrillation (HCC) Atrial fibrillation Pneumonia of right lower lobe due to infectious organism- Primary Diarrhea, unspecified type History of total hip replacement, right COPD, group D, by GOLD 2017 classification ([facility]) Advanced care planning/counseling discussion Other specified counseling Dermatitis- Primary Contact dermatitis and other eczema, due to unspecified cause Anxiety state Anxiety state, unspecified COPD, group D, by GOLD 2017 classification ([facility]) Moderate episode of recurrent major depressive disorder [...] Documents on File Type Date Recorded Patient Telephone Order Supervisor Expl anation Power of Slot Host 12/17/2018 POWER OF A TTORNEY * No Code (Latest Code Status on File) Date Activated Date Inactivated Comments 01/07/2023 8:13 PM 01/09/2023 7:16 PM This order r eflects the patients wishes and were consensually agreed upon. Question Answer Comments Discussion of Advance Directives occurred with: Patient Care Teams Industrial Maintenance Repairer Helper Relationship Specialty Start Date End Date Perfecto Sauceda DO [address] [place] [address] PCP - General Internal Medicine 01/30/24 documented as of this encounter
--- OUTSIDE RECORDS SUMMARY | 2024-12-07 15:40 | External Medical Summary | Summary of Care ---
Author Name Unknown Organization [facility] Address [address] [place] [address] Phone [phone] Care Team Providers Care Microwave Remote Sensing Scientist Name Role Phone Perfecto Sauceda DO Primary Care Provider [phone] Reason for Visit * Reason Onset Date Comments Test Results 11/19/202411/19 Encounter Details Date Type Department Care Team (Late st Contact Info) Description 11/19/2024 Telephone Family Practice 65 [facility] [address] [place] [phone] Perfecto Sauceda DO 293 [place] [address] Test Results (11/19) Allergies Active Allergy Reactions [...] 18 g 3 08/16/19 25 Active Nystatin 024943 UNIT/ML Mouth/Throat SuspensionIndicati ons:Thrush Swish and swallow [...] Respimat 1.25 MCG/ACT Inhalation Aerosol Solution (Tiotropium [place] Monohydrate)Indica tions:COPD, group A, by GOLD 2017 classification ([facility]) INHALE 2 PUFFS BY MOUTH [...] Plan (04/02/2024 2:46 PM EDT): Following with [facility] sports med Has CT scan scheduled [...] mRNA, LNP-s, No Pre serve, 2-Dose Series ([employer]) 11/12/2020,10/22/2020 COVID-19, LNP-s, No Preserve , Cedric-sucrose, Ages 12+ (Pfizer) 07/23/2021 COVID-19, MRNA-LNP, PF, 30 M CG/0.3 mL, 12 YRS AND ABOVE, IM ([facility]) 10/04/2023 Covid-19, Mrna, Lnp-s, Pf, B ivalent, 30 Mcg, IM, 12 yrs and above ([employer]) 12/12/2022 Pneumococcal Conjugate Vacci ne, 20-valent ([id number]) 01/27/2022 Pneumococcal Polysaccharide PPV23 (Pneumovax) 01/18/2021,07/13/2015 RSV [...] encounter Miscellaneous Notes * Telephone Encounter - Perfecto Sauceda DO - 11/19/2024 3:10 PM EDT Noted. * Telephone Encounter - Theresa Kelsey LPN - 11/19/2024 1:22 PM EDT Call placed to patient and relayed information from Dr. Sauceda. Pt acknowledged understanding. State she increased furosemide as recommended. Aware only to increase for 3 days. Pt reports some improvement in swelling. * Telephone Encounter - Theresa Kelsey LPN - 11/19/2024 1:19 PM EDT ----- Message from Perfecto Sauceda DO sent at 11/18/2024 8:16 PM EDT ----- No fracture present. Soft tissue swelling in left ankle. Furosemide increased to 80 mg a day for 3 days then return to 40 mg daily. See if swelling has improved. documented in this encounter Plan of Treatment Upcoming Encounters Date Type Department Care Team (Latest Contact Info) Description 11/22/2024 8:00 AM EDT Home Visit [facility] [address] [place] [address] Nida Burton, RN [address] [place] [address] 11/29/2024 3:00 PM EDT Office Visit Family Practice [address] [place] [address] 293 [facility], [place] [address] Perfecto Sauceda DO 293 [place] [address] 12/02/2024 10:00 AM EDT Imaging Radiology [address] [place] [phone] 12/09/2024 10:40 AM EDT Office Visit Dermatology, Adonis Randlen [address] [place] [address] [place] [address] Rhea Ward PA-C [address] [place] [address] 12/16/2024 10:40 AM EDT Office Visit Family Practice [address], [place] [address] [facility] [place] [place] [address] Perfecto Sauceda DO 293 [place] [address] 12/25/2024 10:40 AM EDT Office Visit Neurology [facility] [address] [place] [address] Naty Hall MD [address] [place] [address] 12/27/2024 11:00 AM EDT Office Visit Urology [address] [place] Becky [address] [place] [address] [place] [address] Karma Grider PA-C [address] [place] [address] 02/17/2025 12:41 PM EDT Hospital Encounter [facility], Operating Room [facility] [address] [place] [address] [place] [address] Henrry Lindsay DO [address] [place] [phone] 02/17/2025 12:41 PM EDT - 02/17/2025 1:02 PM EDT Surgery OR [facility], Operating Room [facility] [address] [place] [address] [place] [address] Henrry Lindsay, [address] [place] [address] INJECTION SPINE LUMBAR OR SACRAL 05/01/2025 1:00 PM EDT Office Visit Dermatology, [address] [place] [address] Annalisa Pascal PA-C [address] [place] [address] [place] [address] 05/05/2025 9:30 AM EDT Office Visit Pulmonary Medicine, [facility] [address] [place] [phone] Anuel Dennison MD [address] [facility] [place] [phone] Scheduled Procedures Name Priority Associated Diagnoses Date/Ti [...] D LEVEL ONCE IN A LIFETIME-USE SMARTSET# 18720 Completed 08/16/2018 Zoster Vaccines Completed 06/02/2021, 01/18/2021 [...] Documents on File Type Date Recorded Patient Assessment Analyst Expl anation Power of Building Custodial Supervisor 12/17/2018 POWER OF A TTORNEY * No Code (Latest Code Status on File) Date Activated Date Inactivated Comments 01/07/2023 8:13 PM 01/09/2023 7:16 PM This order r eflects the patients wishes and were consensually agreed upon. Question Answer Comments Discussion of Advance Directives occurred with: Patient Care Teams Microwave Remote Sensing Scientist Relationship Specialty Start Date End Date Perfecto Sauceda DO [address] [place] [address] PCP - General Internal Medicine 01/30/24 documented as of this encounter
--- OUTSIDE RECORDS SUMMARY | 2024-12-07 15:41 | External Medical Summary | Summary of Care ---
Author Name Unknown Organization [facility] Address [address] [facility] [place] [address] Phone [phone] Care Team Providers Care Eye Physician Name Role Phone Sohanjose armandoPerfecto DO Primary Care Provider [phone] Reason for Visit * Reason Onset Date Comments Follow Up 11/15/2024 Encounter Details Date Type Department Care Team (Late st Contact Info) Description 11/15/2024 Telephone Interventional Pain Center [facility] [address] [place] [phone] Lorelei Zuñiga PA-C [address] [place] [phone] Follow Up Allergies Active Allergy Reactions Criticality Noted Date Comments Barium Sulfate Diarrhea,Nausea/vomi ting,Rash 09/17/2024 Iodinated Contrast Media Hives Low 09/16/2024 Oxycodone High 11/20/2023 Other Reaction(s): confusion Vancomycin Rash Medium 04/19/2024 documented as of this encounter (statuses as of 11/15/2024) Medications Cholecalciferol (VITAMIN D) 2000 UNITS Tablet Take 2,000 Units by mouth daily. Active Calcium 600 MG Tablet Take 1 Tablet by mouth in the morning. 30 Tab 10/13/19 19 Active Aspirin 81 MG Tablet Take 1 Tablet by mouth in the morning. Active Full Kit Nebulizer Set Use with [...] 18 g 3 08/16/19 25 Active Nystatin 152264 UNIT/ML Mouth/Throat SuspensionIndicati ons:Thrush Swish and swallow [...] Respimat 1.25 MCG/ACT Inhalation Aerosol Solution (Tiotropium [place] Monohydrate)Indica tions:COPD, group A, by GOLD 2017 classification ([facility]) INHALE 2 PUFFS BY MOUTH [...] bedtime. 30 Tablet 5 11/13/19 25 Active predniSONE 10 MG Oral Tablet (Deltasone)Indicat ions:Atopic dermatitis, unspecified type Take 1 Tablet by mouth in the morning for 7 days. As directed. 7 Tablet 11/13/19 25 025 Active Additional Information Patient not taking.Reported on 11/15/2024 traMADol HCl 50 MG Oral Tablet (Ultram)Indication s:Acute pain of left knee,Acute pain of left shoulder Take 1 Tablet by mouth every 8 hours as needed for Pain, Severe. 45 Tablet 11/13/19 Active NATURAL SUPPLEMENT Apply 1 Application topically to affected area as needed (itching/rash). Apply 3-4 times a day as needed for itching/rash Active predniSONE 50 MG Oral Tablet (Deltasone) Take 1 Tablet by mouth in the morning. 11/15/19 Active Hydrocortisone 2.5 % External Ointment APPLY Externally 3 times a day As Needed for itching for 10 days 10/29/19 Active documented as of this encounter (statuses as of 11/15/2024) Active Problems Problem Noted Date Diagnosed Date [...] Plan (04/02/2024 2:46 PM EDT): Following with [facility] sports med Has CT scan scheduled this [...] as of this encounter (statuses as of 11/15/2024) Resolved Problems Problem Noted Date Diagnosed Date [...] as of this encounter (statuses as of 11/15/2024) Immunizations Name Administration Dates Next Due COVID-19 mRNA, LNP-s, No Pre serve, 2-Dose Series ([employer]ucky[employer]) 11/12/2020,10/22/2020 COVID-19, LNP-s, No Preserve , Cedric-sucrose, Ages 12+ (Pfizer) 07/23/2021 COVID-19, MRNA-LNP, PF, 30 M CG/0.3 mL, 12 YRS AND ABOVE, IM ([facility]) 10/04/2023 Covid-19, Mrna, Lnp-s, Pf, B ivalent, 30 Mcg, IM, 12 yrs and above ([employer]ucky[employer]) 12/12/2022 Pneumococcal Conjugate Vacci ne, 20-valent ([id number]) 01/27/2022 Pneumococcal Polysaccharide PPV23 (Pneumovax) 01/18/2021,07/13/2015 RSV [...] Date Recorded PHQ Adult Total Score 0 09/17/2024 Hunger Vital Sign Answer Date Recorded Within the past 12 months, y ou worried that your food would run out before you got the money to buy more. Never true 09/17/19 25 Within the past 12 months, t he food you bought just didn't last and you didn't have money to get more. Never true 09/17/2024 Childcare Answer Date Recorded Do you feel overwhelmed with taking care of a child, family member or friend? No 09/17/2024 Does your family need help f inding childcare? (Household - for ages 0-17 years) Not on file 09/17/2024 Clothing Answer Date Recorded Have you been unable to get clothing when it was really needed? No 09/17/2024 Is your family able to get c lothes or diapers when needed? (Household - for ages 0-17 years) Not on file 09/17/2024 Personal Safety Answer Date Recorded Do you feel unsafe or have concerns for your saf ety? No 09/17/2024 Do you have concerns for you r family's safety? (Household - for ages 0-17 years) Not on file 09/17/2024 Utilities Answer Date Recorded Do you have trouble paying y our heating, water, or electric bill? No 09/17/2024 Is your family able to pay t he heat, water, or electric bill? (Household - for ages 0-17 years) Not on file 09/17/2024 Does your family have access to good internet? (Household - for ages 0-17 years) Not on file 09/17/2024 Employment Status Answer Date Recorded Are you unemployed or without regular income? No 09/17/2024 Does the household have a re gular source of income? (Household - for ages 0-17 years) Not on file 09/17/2024 Social Connections Answer Date Recorded How often do you feel lonely or isolated from th ose around you? Never 09/17/2024 Financial Resource Strain Answer Date R ecorded Do you have any trouble payi ng for your medications, or do you think you might in the future? No 09/17/2024 Does your family have troubl e paying for medicine? (Household - for ages 0-17 years) Not on file 09/17/2024 Transportation Needs Answer Date Record ed Do you have trouble getting a ride to medical visits or work? (Adult - for ages 18 years and over) Not on file 09/17/2024 Does your family have a hard time getting a ride to doctors visits? (Household - for ages 0-17 years) Not on file 09/17/2024 Has lack of transportation k ept you from medical appointments, meetings, work, or from getting things needed for daily living? Check all that apply. No 09/17/2024 Do you (or your family) have trouble finding or paying for a ride (transportation)? (Household - for ages 0-17 years) Not on file 09/17/2024 Housing Stability Answer Date Recorded Do you currently live in a s helter or have no steady place to sleep at night? No 09/17/2024 Do you think you are at risk of becoming homeless? (Adult - for ages 18 years and over) Not on file 09/17/2024 Does your family worry about paying for your home or becoming homeless? (Household - for ages 0-17 years) Not on file 0 09/17/2024 Are you homeless or worried that you might be in the future? No 09/17/2024 Are you (or your family) alfreda eless [...] the money to buy more. Never true 09/17/19 25 Within the past 12 months, t he food you bought just didn't last and you didn't have money to get more. Never true 09/17/2024 Do you need food for this week? No 09/17/2024 Education Answer Date Recorded What is the [...] encounter Miscellaneous Notes * Telephone Encounter - Lorelei Zuñiga PA-C - 11/15/2024 10:10 AM EDT Patient is aware of approval for eliquis hold. Last dose of eliquis 02/13. Procedure scheduled 02/17. * Telephone Encounter - Lorelei Zuñiga PA-C - 11/15/2024 7:52 AM EDT ----- Message from Perfecto Sauceda DO sent at 11/14/2024 7:40 PM EDT ----- Patient may hold Apixaban for 3 days prior to MAGALY ----- Message ----- From: Lorelei Zuñiga PA-C Sent: 11/14/2024 2:32 PM EDT To: Perfecto Sauceda DO Afternoon Dr. Sauceda, Seeking your opinion regarding possible three day eliquis hold prior to lumbar epidural steroid injection. She holds significant hx atrial fibrillation, CVA and PE. Lorelei Toussaint documented in this encounter Plan of Treatment Upcoming Encounters Date Type Department Care Team (Late st Contact Info) Description 11/29/2024 3:00 PM EDT Office Visit Family Practice [address], [place] [address] [place] [phone] Perfecto Sauceda DO 293 [facility], [place] [address] 12/02/2024 10:00 AM EDT Imaging Radiology [facility] 1st [facility], [place] [address] [place] [address] 12/09/2024 10:40 AM EDT Office Visit Dermatology, [place] [address] [place] [address] Rhea Ward PA-C [address] [place] [address] 12/16/2024 10:40 AM EDT Office Visit Family [address] [place] [phone] Perfecto Sauceda, 293 [place] [address] 12/25/2024 10:40 AM EDT Office Visit Neurology [facility] [address] [place] [address] Naty Hall MD 200 [facility] [place] [address] 12/27/2024 11:00 AM EDT Office Visit Urology Pily [place] [address] [place] [address] Karma Grider PA-C [address] [place] [address] 02/17/2025 Hospital Encounter OR [facility], Operating Room [facility] [address] [place] [address] [place] [phone] Henrry Lindsay, [address] [place] [phone] 05/01/2025 1:00 PM EDT Office Visit Dermatology, [address] [place] [phone] Annalisa Pascal PA-C [address] [place] [address] [place] [address] 05/05/2025 9:30 AM EDT Office Visit Pulmonary Medicine, [facility] [address] [place] [phone] Anuel Dennison MD [address] [place] [address] Scheduled Procedures Name Priority Associated Diagnoses Date/Ti me INJECTION SPINE LUMBAR OR SACRAL Lumbar radiculopathy Health Maintenance Due Date Last Done Comments Adult Wellness Visit 12/06/2023 12/05/2022, 12/16/19 22 Colonoscopy 12/30/2023 12/29/2022, 12/12, 11/22/2016, Additional history exists *BISPHONATE OR OTHER ACCEPTABLE MEDICATION NEEDED FOR OSTEOPOROSIS (REFER TO SMARTSET #1146) 08/29/2024 Albumin/Creatinine Ratio 01/27/2025 01/27/2022 HbA1c 06/17/2025 06/17/2024 DXA Scan 07/26/2025 07/26/2023, 07/14, 02/08/2021, Additional history exists Depression Monitoring 09/17/2025 09/17/2024 GFR 11/05/2025 11/05/2024, 08/14, 04/19/2024, Additional history exists O2 ASSESSMENT COMPLETED IN PAST YEAR FOR COPD 11/12/2025 11/12/2024 DTap/Tdap Vaccines (5 - Td or Tdap) 06/26/2034 06/26/2024, 02/16/2015, 05/20/2008, Additional history exists VITAMIN D LEVEL ONCE IN A LIFETIME-USE SMARTSET# 66791 Completed 08/16/2018 Zoster Vaccines Completed 06/02/2021, 01/18/2021 [...] Documents on File Type Date 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 Question Answer Comments Discussion of Advance Directives occurred with: Patient Care Teams Eye Physician Relationship Specialty Start Date End Date Perfecto Sauceda DO [address] [place] [address] PCP - General Internal Medicine 01/30/24 documented as of this encounter
--- OUTSIDE RECORDS SUMMARY | 2024-12-07 15:41 | External Medical Summary ---
Author Name Unknown Address Unknown Organization [id number]:[facility] [place] [address] [facility] [address] Laboratory Report Ordering Provider Test Date Status YAHAIRA BOYKIN 11/18/2024 08:57:54 Final Observation Date Value Abnormality Reference (Units ) Status WBC, Total 11/18/2024 08:57:54 10.07 4.00-10.80 (K/uL) Final RBC 11/18/2024 08:57:54 4.49 3.85-5.15 (M/uL) Final Hemoglobin 11/18/2024 08:57:54 14.3 12.0-15.3 (g/dL) Final HCT 11/18/2024 08:57:54 44.7 36.0-45.2 (%) Final MCV 11/18/2024 08:57:54 99.6 81.5-97.5 (fL) Final MCH 11/18/2024 08:57:54 31.8 27.0-34.0 (pg) Final MCHC 11/18/2024 08:57:54 32.0 32.0-36.0 (g/dL) Final RDW 11/18/2024 08:57:54 13.5 11.5-15.5 (%) Final Platelets 11/18/2024 08:57:54 353 140-400 (K/uL) Final MPV 11/18/2024 08:57:54 9.6 6.6-11.1 (fL) Final Nucleated erythrocytes/100 leukocytes [Ratio] in Blood by Automated count 11/18/2024 08:57:54 0 <=0 (/100 WBCs) Final Performing Location [facility] [place] [address] [place] [address]
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
--- OUTSIDE RECORDS SUMMARY | 2024-12-07 15:41 | External Medical Summary ---
Author Name Unknown Address Unknown Organization [id number]:[facility] [place] [address] [facility] [place] [address] Laboratory Report Ordering Provider Test Date Status YAHAIRA BOYKIN 11/18/2024 08:57:54 Final Observation Date Value Abnormality Reference (Units ) Status Uric Acid 11/18/2024 08:57:54 6.6 Above high normal 2. 4-5.7 (mg/dL) Final Performing Location [facility] [place] [address] [place] [address]
--- OUTSIDE RECORDS SUMMARY | 2024-12-07 15:41 | External Medical Summary ---
Author Name Unknown Address Unknown Organization [id number][place] [place] [address] [place] [address] Laboratory Report Ordering Provider Test Date Status YAHAIRA BOYKIN 11/18/2024 08:57:54 Final Observation Date Value Abnormality Reference (Units ) Status CRP, low-sensitivity 11/18/2024 08:57:54 <3 <=5 (mg/L) Final Performing Location [facility]AT[facility] - [address] [place] [address]
--- OUTSIDE RECORDS SUMMARY | 2024-12-07 15:41 | External Medical Summary ---
Author Name Unknown Address Unknown Organization [id number][place] [place] [address] [address] [place] [address] Laboratory Report Ordering Provider Test Date Status YAHAIRA BOYKIN 11/18/2024 08:57:54 Final Observation Date Value Abnormality Reference (Units ) Status Erythrocyte sedimentation rate by Photometric method 11/18/2024 08:57:54 17 <30 (mm/hour) Final Performing Location [facility] [place] [address] [place] [address]
--- OUTSIDE RECORDS SUMMARY | 2024-12-07 15:41 | External Medical Summary | Summary of Care ---
Author Name Unknown Organization [facility] Address [address] [facility] [place] [address] Phone [phone] Care Team Providers Care Claims Analyst Name Role Phone Perfecto Sauceda DO Primary Care Provider [phone] Reason for Referral * Precert (Within 10 days (routine)) - Authorized Specialty Diagnoses / Procedures Referred By Contac t Referred To Contact Pain Medicine Diagnoses Lumbar radicular pain Procedures INJECT DX/THER SUBSTANCE INTERLAMINAR LUMBAR/SACRAL W IMAGE GUIDE Lorelei Zuñiga PA-C [address] [place] [address] Phone: tel: fax: Referral ID Status Reason Start Date Expiration Date V isits Requested Visits Authorized [id number] Authorized 12/14/2024 999 999 Reason for Visit * Reason Comments Back Pain Bilateral low back p ain radiating down bilateral legs to toes. constant stabbing/ crawling sensation Numbness in bilateral feet. Follow Up MRI L Spine Encounter Details Date Type Department Care Team (Late st Contact Info) Description 11/14/2024 2:00 PM EDT Office Visit [facility] [address] [place] [phone] Lorelei Zuñiga PA-C [address] [place] [address] Lumbar radicular pain* Allergies Active Allergy Reactions Criticality Noted Date Comments Barium Sulfate Diarrhea,Nausea/vomi ting,Rash 09/17/2024 Iodinated Contrast Media Hives Low 09/16/2024 Oxycodone High 11/20/2023 Other Reaction(s): confusion Vancomycin Rash Medium 04/19/2024 documented as of this encounter (statuses as of 11/14/2024) Medications Cholecalciferol (VITAMIN D) 2000 UNITS Tablet [...] 18 g 3 08/16/19 25 Active Nystatin 757910 UNIT/ML Mouth/Throat SuspensionIndicati ons:Thrush Swish and swallow [...] Respimat 1.25 MCG/ACT Inhalation Aerosol Solution (Tiotropium [place] Monohydrate)Indica tions:COPD, group A, by GOLD 2017 classification ([facility]) INHALE 2 PUFFS BY MOUTH IN THE [...] Active Additional Information Patient not taking.Reported on 11/14/2024 traMADol HCl 50 MG Oral Tablet (Ultram)Indication s:Acute pain of left knee,Acute pain of left shoulder Take 1 Tablet by mouth every 8 hours as needed for Pain, Severe. 45 Tablet 11/13/19 25 Active NATURAL SUPPLEMENT Apply 1 Application topically to affected area as needed (itching/rash). Apply 3-4 times a day as needed for itching/rash Active documented as of this encounter (statuses as of 11/14/2024) Active Problems Problem Noted Date Diagnosed Date [...] Plan (04/02/2024 2:46 PM EDT): Following with [facility] sports med Has CT scan [...] as of this encounter (statuses as of 11/14/2024) Resolved Problems Problem Noted Date Diagnosed Date [...] as of this encounter (statuses as of 11/14/2024) Immunizations Name Administration Dates Next Due COVID-19 mRNA, LNP-s, No Pre serve, 2-Dose Series (Fengguo) 11/12/2020,10/22/2020 COVID-19, LNP-s, No Preserve , Cedric-sucrose, Ages 12+ (Pfizer) 07/23/2021 COVID-19, MRNA-LNP, PF, 30 M CG/0.3 mL, 12 YRS AND ABOVE, IM (CitizenDish-Comirnaty) 10/04/2023 Covid-19, Mrna, Lnp-s, Pf, B ivalent, 30 Mcg, IM, 12 yrs and above (Fengguo) 12/12/2022 Pneumococcal Conjugate Vacci ne, 20-valent ([id number]) 01/27/2022 Pneumococcal Polysaccharide PPV23 (Pneumovax) 01/18/2021,07/13/2015 RSV [...] No 09/17/2024 Does the household have a [facility] source of income? (Household - for ages [...] documented in this encounter Progress Notes * Lorelei Zuñiga PA-C - 11/14/2024 1:59 PM EDT Name: Carmen Easley Date: 11/14/2024 HPI: Carmen Easley is a 74 year old female known to the Pain Management clinic presents for followup to review L spine MRI. Study completed 10/16 - listhesis L5/S1, facet arthropathy L3/4 thru L5/S1, moderate central stenosis with severe B foraminal narrowing and probable nerve root contact, moderate foraminal narrowing L5/S1. Complains of low back, buttock pain that radiates to thigh and calf. Describes pain as aching and sharp. Pain is constant, rated 8/10. Aggravating factors include: lumbar flexion or extension. Unableto provide alleviating factors. Admits associated weakness B LE,occasionally uses cane - presents today without assistive device. Associated paresthesia foot, calf bilaterally - baseline. Denies bowel or bladder incontinence. Continues to suffer from diffuse pain into neck and numerous joints. Neuropsych consultation January. Current medications used for pain: tylenol, zanaflex, cymbalta. Past medications used for pain: lidocaine patch. Anticoagulation therapy: aspirin, eliquis +++ contrast media allergy - hives. Recent renal MRI W and WO - denies SE or complications Of note, evaluated at [facility] ED last evening due to inhalation of Clorox and ammonia - mixed the two bottles up. Feeling better today. History: Past Medical History: Diagnosis Date Anxiety state 09/24/2008 COPD, group A, by GOLD 2017 classification ([facility]) 10/21/2019 Per COPD GOLD Classification Displacement of cervical intervertebral disc without myelopathy 06/16/2008 Essential hypertension with goal blood pressure less than 140/90 06/02/2021 Gastroesophageal reflux disease without esophagitis 01/18/2021 Generalized osteoarthritis of multiple sites 04/09/2007 History of CVA (cerebrovascular accident) 01/11/2023 History of pulmonary embolism 01/11/2023 History of total hip replacement, right 12/26/2023 Lupus anticoagulant positive 10/10/2018 Migraine without aura and without status migrainosus, not intractable 01/11/2023 Moderate episode of recurrent major depressive disorder (HCC) 02/17/2021 Paroxysmal atrial fibrillation (HCC) Primary localized osteoarthrosis of shoulder region 06/29/2004 Primary osteoarthritis of right knee 12/12/2022 Pure hypercholesterolemia 08/17/2020 Spinal stenosis of lumbar region without neurogenic claudication 10/18/2024 Past Surgical History: Procedure Laterality Date ARTHROPLASTY KNEE TOTAL Right 02/27/2023 COLONOSCOPY, DIAGNOSTIC (RECTUM) 06/01/2011 Ext hemorrhoids, normal COLONOSCOPY, DIAGNOSTIC (RECTUM) 11/22/2016 normal, repeat 5 yrs/COLONOSCOPY FLEXIBLE PROXIMAL DIAGNOSTIC performed by Tashia Tim DO at [facility] COLONOSCOPY, DIAGNOSTIC (RECTUM) 12/29/2022 poor prep/biopsies normal/recall 1 year/COLONOSCOPY FLEXIBLE PROXIMAL DIAGNOSTIC performed by Jana Tim DO at [facility] EGD, FLEXIBLE, DIAGNOSTIC 11/22/2016 mild stomach irritation/ESOPHAGOGASTRODUODENOSCOPY (EGD), FLEXIBLE, TRANSORAL, DIAGNOSTIC performedby Tashia Tim DO at [facility] EGD, FLEXIBLE, DIAGNOSTIC 10/26/2023 normal/ESOPHAGOGASTRODUODENOSCOPY (EGD), FLEXIBLE, TRANSORAL, DIAGNOSTIC performed by Isaias Flood MD at [facility] MISCELLANEOUS ORDER ([facility] ONLY) Bilateral 05/30/2018 Reinheimer- blepharoplasty eyelids PARTIAL HYSTERECTOMY 1976 took ovaries REMOVE CATARACT, INSERT LENS PROSTH Bilateral Dr. Wynne SHOULDER ARTHROSCOPY/SURGERY Bilateral 2014 L, [address] Thomson SINUS SURGERY PROCEDURE NEC 1993 STRESS ECHO (EXERCISE) 11/2004 normal TOTAL HIP REPLACEMENT & PROSTHESIS Right 11/19/2023 Current Outpatient Medications Medication Sig Dispense Refill Cholecalciferol (VITAMIN D) 2000 UNITS Tablet Take 2,000 Units by mouth daily. Calcium 600 MG Tablet Take 1 Tablet by mouth in the morning. 30 Tab 0 Aspirin 81 MG Tablet Take 1 Tablet by mouth in the morning. Full Kit Nebulizer Set Use with Nebulizer [...] the morning. 180 Blister Dosing Unit 3 Vitamin B-12 5000 MCG Oral Tablet Disintegrating Take 1 Tablet by mouth in the morning. Atorvastatin Calcium 40 MG Oral Tablet (Lipitor) TAKE 1 TABLET BY MOUTH DAILY 90 Tablet 3 Potassium Chloride ER 10 MEQ [...] CUT, CRUSH OR CHEW 100 Capsule 1 Metoprolol Succinate ER 50 MG Oral Tablet Extended Release 24 Hour (toPROL XL) TAKE ONE TABLET BY MOUTH EVERY DAY IN THE MORNING 100 Tablet 2 tiZANidine HCl 4 MG Oral Tablet (Zanaflex) Take 1 Tablet by mouth 2 times a day. 60 Tablet 3 Albuterol Sulfate HFA 108 (90 Base) MCG/ACT Inhalation Aerosol Solution Inhale 2 Puffs by mouth every 6 hours as needed (COPD). 18 g 3 Nystatin 147985 UNIT/ML Mouth/Throat Suspension Swish and swallow 5 mL in the morning and 5 mL at noon and 5 mL in the evening and 5 mL before bedtime. For thrush.. 240 mL 1 Pantoprazole Sodium 40 MG Oral Tablet Delayed Release (Protonix) Take 1 Tablet by mouth in the morning. 100 Tablet 3 Spiriva Respimat 1.25 MCG/ACT Inhalation Aerosol Solution (Tiotropium [place] Monohydrate) INHALE 2PUFFS BY MOUTH IN THE MORNING 12 g 1 Docusate Sodium 100 MG Oral Capsule (Colace) Take 1 Capsule by mouth in the morning and 1 Capsule before bedtime. Lactulose 10 GM/15ML Oral Solution (Constulose) Take 30 mL by mouth in the morning and 30 mL beforebedtime. severe constipation. 437 mL 5 Apixaban 2.5 MG Oral Tablet (Eliquis) Take 1 Tablet by mouth in the morning and 1 Tablet before bedtime. 200 Tablet 1 Ondansetron HCl 4 MG Oral Tablet Take 1 Tablet by mouth every 6 hours as needed for Nausea. 60 Tablet 3 traZODone HCl 50 MG Oral Tablet (Desyrel) Take 1 Tablet by mouth at bedtime. 30 Tablet 5 predniSONE 10 MG Oral Tablet (Deltasone) Take 1 Tablet by mouth in the morning for 7 days. As directed. 7 Tablet 0 traMADol HCl 50 MG Oral Tablet (Ultram) Take 1 Tablet by mouth every 8 hours as needed for Pain, Severe. 45 Tablet 0 NATURAL SUPPLEMENT Apply 1 Application topically to affected area as needed (itching/rash). Apply 3-4 times a day as needed for itching/rash No current facility-administered medications for this visit. Review of patient's allergies indicates: Allergen Reactions Oxycodone Other Reaction(s): confusion Vancomycin Rash Barium Sulfate Diarrhea, Nausea/vomiting and Rash Iodinated Contrast Media Hives ROS: CONSTITUTIONAL: Denies anorexia, weight loss, fever, night sweats. RESPIRATORY: Denies shortness of breath, wheezing, productive cough. CARDIOVASCULAR: Denies chest pains, irregular heartbeat. HEME: Admits easy bruising and anticoagulation use. ROS EXAM: Remainder of ROS negative as discussed above in the HPI. PHYSICAL EXAM: There were no vitals taken for this visit. GENERAL: WD/WN female who is awake and alert. Does not appear to be in acute distress. MENTAL STATUS: Oriented x 3. Pleasant and cooperative with normal affect. STRENGTH: 5/5 in all major motor groups lower extremities bilaterally. SENSATION: Not formally tested. No gross sensory deficits lower extremities bilaterally. GAIT/COORDINATION: Gait is intact. Ambulates without assistance. IMAGING: MRI LUMBAR SPINE WITHOUT CONTRAST 10/16/24 VERTEBRAE: Exaggeration of lumbar lordosis. Mild flattening of the L4-L5 vertebral bodies. Vertebral body heights otherwise maintained. Grade 1 anterolisthesis of L5 on S1. Retrolisthesis of L2 on L3. No acute marrow signal changes. CONUS/CAUDA EQUINA: The cauda equina and conus medullaris are of normal morphology and signal characteristics. DISC LEVELS L1-L2: Disc bulge with no significant canal or foraminal stenosis L2-L3: Retrolisthesis and disc bulge with mild canal, moderate right and mild left foraminal stenosis. L3-L4: Disc bulge and ligamentum flavum thickening with mild canal and foraminal stenosis L4-L5: Disc bulge and ligamentum flavum thickening along with facet arthrosis with moderate canal stenosis, severe foraminal and subarticular stenosis with impingement upon the exiting nerve root. L5-S1: Facet arthrosis, anterolisthesis with moderate foraminal stenosis PARAVERTEBRAL SOFT TISSUES: Unremarkable. IMPRESSION: Degenerative changes are most prominent at L4-L5 with moderate canal, severe foraminal and subarticular stenosis with impingement upon the descending and exiting nerve roots. ASSESSMENT: Lumbar radicular pain Lumbar spinal stenosis without neurogenic claudication RECOMMENDATION: Discussed MAGALY using fluoroscopy. Risks including, but not limited to epidural hematoma, infection, worsening pain, failure to alleviate pain, nerve injury and possible steroid side effects were reviewed. 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 Reviewed need to stop eliquis prior to injection therapy to decrease risk of bleeding or epidural hematoma. Reviewed increased risk of stroke or cardiac event while eliquis is stopped. Patient stated understanding. Will contact PCP in regards to D/C. Tentatively schedule interlaminar MAGALY L4/5. Continue consultation with neuro psych. Consider MTD referral for chronic pain. Declines surgical consultation at this time. I spent a total of 20-29 minutes (exact time 28 mins) on the date of service in preparation, delivery, and documentation of the care provided to Carmen Easley excluding any time spent in the performance of separately billed services or time spent by another provider/QHP. Lorelei Zuñiga PA-C 11/14/2024 documented in this encounter Nursing Notes * Melody Ann LPN - 11/14/2024 1:56 PM EDT Patient presents for MRI Follow up. Bilateral low back pain radiating down bilateral legs to toes. constant stabbing/ crawling sensation Numbness in bilateral feet. 10/16/24 MRI L Spine documented in this encounter Plan of Treatment Upcoming Encounters Date Type Department Care Team (Late st Contact Info) Description 11/29/2024 3:00 PM EDT Office Visit [address] [place] [address] Perfecto Sauceda, [address] [place] [address] 12/02/2024 10:00 AM EDT Imaging Radiology [address] [place] [phone] 12/09/2024 10:40 AM EDT Office Visit Dermatology, Becky Randle [address] [place] [address] Rhea Ward PA-C [address] [place] [address] 12/16/2024 10:40 AM EDT Office Visit [address] [facility] [place] [address] Perfecto Sauceda, [address] [place] [address] 12/25/2024 10:40 AM EDT Office Visit Neurology [facility] [place] [address] [place] [address] Naty Hall MD [address] [place] [address] 12/27/2024 11:00 AM EDT Office Visit Urology Ilene Randlewn [address] [place] [address] [place] [address] Karma Grider PA-C [address] [place] [address] 02/17/2025 Hospital Encounter OR [facility], Operating Room [facility] [address] [place] [phone] Henrry Lindsay DO [address] [place] [phone] 05/01/2025 1:00 PM EDT [facility] [place] [facility] [address] [facility] [place] [phone] Annalisa Pascal PA-C [address] [place] [address] [place] [address] 05/05/2025 9:30 AM EDT Office Visit Pulmonary Medicine, [facility] [address] [place] [phone] Anuel Dennison MD [address] [place] [address] Scheduled Orders Name Type Priority Associated Diagnoses Orde r Schedule INJECT DX/THER SUBSTANCE INTERLAMINAR LUMBAR/SACRAL W IMAGE GUIDE Procedures Routine Lumbar radicular pain Expected: 12/14/2024 (Approximate), Expires: 12/14/2025 Scheduled Procedures Name Priority Associated Diagnoses Date/Ti [...] D LEVEL ONCE IN A LIFETIME-USE SMARTSET# [id number] Completed 08/16/2018 Zoster Vaccines Completed 06/02/2021, 01/18/2021 [...] COPD, group D, by GOLD 2017 classification ([facility]) Advanced care planning/counseling discussion Other specified counseling Paroxysmal atrial fibrillation (HCC) Atrial fibrillation Pneumonia of right lower lobe due to infectious organism- Primary Diarrhea, unspecified type History of total hip replacement, right COPD, group D, by GOLD 2017 classification ([facility]) Advanced care planning/counseling discussion Other specified counseling Lumbar radicular pain- Primary Thoracic or lumbosacral neuritis or radiculitis, unspecified documented in this encounter Additional Health Concerns Infection Onset Date Last Indicated Resolved Time C. 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 Question Answer Comments Discussion of Advance Directives occurred with: Patient Care Teams Claims Analyst Relationship Specialty Start Date End Date Perfecto Sauceda DO [address] [place] [address] PCP - General Internal Medicine 01/30/24 documented as of this encounter
[2024-12-07 16:02] LABS: iSTAT Creatinine 0.9 mg/dl (0.6-1.3); iSTAT Hemoglobin 13.6 g/dl (12.0-16.0); iSTAT Ionized Calcium 1.14 mmol/l (1.12-1.32); iSTAT Potassium 3.1 mmol/L (3.3-5.0)
--- NOTE | 2024-12-07 16:04 | Emergency Department Note ---
Impression & Plan Dyspnea, Hypoxia, Acute exacerbation of chronic obstructive pulmonary disease, Abdominal pain ED Provider Note NAME: GONZALES AMAYA AGE: 74 SEX: F : 1950 ARRIVES VIA: Walk-In INFORMANT: Patient, ED PROVIDER(S): Keanu Corey MD CHIEF COMPLAINT: Low back pain, abdominal pain MEDICAL DECISION MAKING: Patient presents to concern for lower back pain and abdominal pain in addition to shortness of breath. IV was established and blood work was obtained. Known history of COPD and does have expiratory wheezes. Patient reportedly does require premedication for iodinated contrast with Benadryl patient states that she only gets "a few small bumps." Patient was ordered IV Benadryl IV methylprednisolone to DuoNeb treatments chest x-ray and CT abdomen and pelvis. The patient was ordered IV Ofirmev and IV Zofran. The patient's blood work shows a normal white count H&H and platelet count kidney function unremarkable mild hypokalemia at 3.2. Patient has received nebulizer treatments which may be contributory. LFTs unremarkable with negative troponin bio fire negative. The patient's chest x-ray shows mainly unchanged findings on the may have new atelectatic band in the right lower lobe. The patient CT abdomen pelvis shows left perinephric collection possible perinephric hematoma which is stable. Also suprarenal adenoma is also stable. The patient had mentioned that she had some fluid on 1 kidney. Patient did undergo an ambulatory pulse ox trial and desatted to 88%. The patient was ordered an additional DuoNeb treatment. Patient was still complaining of pain and was ordered IV fentanyl 25 mcg. I did jordi the on-call hospital service Dr. Bernal and the patient was admitted to the medicine service. Discussion w/ other healthcare providers: Dr. Bernal inpatient medicine service Prior /Outside records reviewed: I reviewed part of discharge summary from Sherri Whitmore from October 26 patient with known history of lupus anticoagulant prior PE hypertension paroxysmal A-fib TIA COPD on Spiriva and Breo presented with worsening shortness of breath at times noted to be hypoxemic. Patient was treated for scabies and COPD. Reviewed the patient's medication list shows that she is on chronic Eliquis 2.5 twice daily. Patient also on Lasix 40 daily. Differential diagnosis: Appendicitis, kidney stone, fracture, sprain, sprain, infection, dehydration, metabolic abnormality, hypo/hyperglycemia, electrolyte imbalance, anemia, UTI, pneumonia, thyroid dysfunction among others were considered. Diagnostics, as interpreted by me: ECG: Normal sinus rhythm, rate of 86, normal intervals, normal axis no ST elevations or TWI. Cardiac monitoring: An order was placed for continuous cardiac monitoring. The monitor shows a rate of 89 with sinus rhythm. Patient was placed on pulse oximetry Medical decision rules: None Imaging studies: I informally interpreted the patient's chest x-ray without obvious pneumonia or pneumothorax with formal report to follow. HPI: Patient presents due to concern for lower back pain with associated abdominal pain. The patient states that her pain began last evening. The patient did not take anything for it at home. Patient had nausea but no vomiting. Patient states that she has had increased urinary frequency but no reported dysuria. The patient states that she has a bowel movement every 3 days. No reported blood in urine or stool. The patient states that she is compliant with her medications. She reports feeling short of breath this morning. Patient states that she has had dry nonproductive cough but that this is chronic and unchanged. The patient states that she did use her nebulizer treatments twice today in addition to her Breo but without significant improvement in symptoms. No recent travel and no known sick contacts. Patient denies any chest pains. PAST MEDICAL HISTORY: See Below PAST SURGICAL HISTORY: See Below SOCIAL HISTORY: See Below HOME MEDICATIONS: See Below ALLERGIES: See Below VITALS: See Below PHYSICAL EXAMINATION: GENERAL: NAD, non-toxic. EYE EXAM: Normal conjunctiva. PERRL, no anisocoria and EOM's grossly intact w/o pain. OROPHARYNX: Dry mucus membranes, grossly normal dentition. NECK: Trachea midline, no stridor. Supple, no nuchal rigidity, no adenopathy, non-tender. No signs of meningismus. FROM of the neck with good chin to chest and neck extension. LUNGS: Expiratory wheezes throughout. Normal chest wall mechanics. HEART: NSR, no MRG. ABDOMEN: Abdomen soft, lower abdominal discomfort most prominent in the right lower quadrant, no masses, no rebound or guarding. BACK: No CVA TTP. Midline and right-sided paraspinal lower lumbar discomfort. No thoracic TTP. SKIN: No rashes and no bruising. UPPER EXTREMITIES: Upper extremities are grossly normal. LOWER EXTREMITIES: Grossly normal, bilateral lower extremity edema without calf pain or erythema. NEURO EXAM: A&O x3, cranial nerves II-XII grossly intact, normal speech, moves all 4 extremities. Past Med/Surg History Problem List (Updated 12/07/24 @ 22:13 by Keanu Corey MD) Abdominal pain (Acute) Acute exacerbation of chronic obstructive pulmonary disease (Acute) Hypoxia (Acute) Dyspnea (Acute) Back pain Contusion of knee, right Anemia (Acute) Fall (Acute) Hip hematoma, right (Acute) Dislocation of hip prosthesis (Acute) History of pulmonary embolism Anticoagulant long-term use (Acute) Closed fracture of right hip (Acute) Fall (Acute) Carpal tunnel syndrome, bilateral upper limbs Rotator cuff arthropathy of right shoulder Hallucinations (Acute) Elevated international normalized ratio (INR) (Acute) Weakness (Acute) Acute pain of right lower extremity (Acute) Supratherapeutic INR Tobacco use AMS (altered mental status) Status post right knee replacement (~02/2023) Encounter for pre-operative examination SOB (shortness of breath) (Acute) SOB (shortness of breath) (Acute) Acute bronchitis (Acute) Hypoxia (Acute) COPD (chronic obstructive pulmonary disease) (Chronic) Bronchitis (Acute) Pneumonia Left sided chest pain (Acute) Leukocytosis (Acute) Pulmonary embolism on right (Chronic) Lung nodule < 6cm on CT Tobacco abuse Pulmonary emboli 2019--on warfarin daily Acute CVA (cerebrovascular accident) (Acute) Lupus anticoagulant positive (Chronic) Neck pain on left side Acute right flank pain Full code status Contusion of left hand Trigger finger, right ring finger Trigger finger, left ring finger Trigger finger of right hand Osteoarthritis of right knee Osteoarthritis of left knee S/P trigger finger release Right trigger finger release (04/29/21): [facility] at [facility] Emphysema lung COPD (chronic obstructive pulmonary disease) (Acute) Medical History Arthritis Chronic pain A-fib Paroxysmal Follows with [facility] Taking warfarin History of pulmonary embolism 2019, Taking warfarin Migraine Hypertension Hyperlipidemia Poor historian Memory loss TIA (transient ischemic attack) 2019 Lupus Surgical History S/P total right hip arthroplasty History of total hysterectomy with bilateral salpingo-oophorectomy (BSO) History of arthroscopy of left shoulder History of arthroscopy of right shoulder History of tooth extraction all upper teeth History of sinus surgery History of bilateral cataract extraction Family History Other Cancer Heart disease Hypertension No family history of adverse response to anesthesia Social History Smoking Status: Current every day smoker Tobacco Type: Cigarettes Cigarettes Per Day: 1-2 some days; Second Hand Exposure: Yes; Do You Dip or Chew Tobacco: No; Hx Alcohol Use: No Hx Substance Use: No Preferred Language: Estonian Communication Ability: Effective Visual Impairment: No Limitations Internal Medicine Physician Required: No Beliefs That Will Affect Care: None marital status: Current Living Situation: Alone current occupational status: retired Feels Safe at Home: Yes Assistive Devices: Bedside Commode, Raised Toilet Seat and Walker Allergies Allergies Allergy/AdvReac Type Severity Reaction Status Date / Time Iodinated Contrast Media Allergy Intermediate Hives Verified 11/13/24 20:02 oxycodone AdvReac Severe confusion Verified 11/13/24 20:02 Home Meds Home Medications Medication Instructions Recorded Confirmed albuterol sulfate 0.63 mg/3 mL 0.63 mg continuous nebulization 12/03/23 12/07/24 solution for nebulization DIRECTED PRN Shortness Of Breath Or Wheezing ondansetron 4 mg disintegrating 4 mg PO Q8H PRN nausea and vomiting 12/03/23 12/07/24 tablet lactulose 10 gram/15 mL oral 30 ml PO BID PRN NEEDED PER PT 10/26/24 12/07/24 solution tiotropium bromide 1.25 2 puff inhalation QAM 10/26/24 12/07/24 mcg/actuation mist for inhalation (Spiriva Respimat) polyethylene glycol 3350 17 gram 17 g PO DAILY PRN Constipation 11/13/24 12/07/24 oral powder packet (Miralax) sennosides 8.6 mg-docusate sodium 2 tab PO BID 12/07/24 12/07/24 50 mg tablet (Senokot-S) tizanidine 4 mg tablet 4 mg PO BID 12/07/24 12/07/24 tramadol 50 mg tablet 50 mg PO Q8H PRN Pain 04/26/25 04/26/25 Previous Rx's Medication Instructions Recorded albuterol sulfate 90 mcg/actuation 2 puff inhalation Q6H PRN 11/23/23 aerosol inhaler (Ventolin HFA) Shortness Of Breath #6.7 grams apixaban 2.5 mg tablet (Eliquis) 2.5 mg PO BID #60 tabs 11/23/23 aspirin 81 mg tablet,delayed 81 mg PO QAM #30 tabs 11/23/23 release atorvastatin 40 mg tablet 40 mg PO QAM #60 tabs 11/23/23 buspirone 10 mg tablet 10 mg PO BID #60 tabs 11/23/23 calcium carbonate (Calcium 600) 600 mg PO QAM #60 tabs 11/23/23 cholecalciferol (vitamin D3) 50 50 mcg PO QAM #30 caps 11/23/23 mcg (2,000 unit) capsule (Vitamin D3) cyanocobalamin (vitamin B-12) 1,000 mcg PO QAM #30 tabs 11/23/23 1,000 mcg tablet (Vitamin B-12) duloxetine 60 mg capsule,delayed 60 mg PO HS #60 caps 11/23/23 release fluticasone furoate 200 1 inh inhalation QAM #60 ea 11/23/23 mcg-vilanterol 25 mcg/dose inhalation powder (Breo Ellipta) furosemide 40 mg tablet 40 mg PO DAILY #30 tabs 11/23/23 guaifenesin 600 mg tablet, 600 mg PO BID PRN Congestion #60 11/23/23 extended release 12 hr (Mucinex) tabs hydroxyzine HCl 10 mg tablet 10 mg PO TID PRN anxiety #10 tabs 11/23/23 metoprolol succinate 50 mg 50 mg PO QAM #60 tabs 11/23/23 tablet,extended release 24 hr (Toprol XL) pantoprazole 40 mg tablet,delayed 40 mg PO QAM #30 tabs 11/23/23 release potassium chloride 10 mEq 10 meq PO QAM #30 tabs 11/23/23 tablet,extended release cyclobenzaprine 10 mg tablet 10 mg PO Q8H PRN muscle spasm #30 12/07/23 tabs Results & Data (ED) Vital Signs Vital Signs - 24 hr 12/07/24 15:33 12/07/24 16:05 12/07/24 16:19 Temperature 36.9 C Temperature Source Temporal Artery Scan Pulse Rate 85 82 Pulse Rate [Right Brachial] Pulse Rhythm [Right Brachial] Pulse Strength [Right Brachial] Respiratory Rate 19 Respiratory Effort / Characteristics Non-Labored Spontaneous Respiratory Depth Normal Respiratory Pattern Blood Pressure 114/76 Blood Pressure [Right Arm] Blood Pressure Mean 88 Blood Pressure Mean [Right Arm] Blood Pressure Position Right Lateral Blood Pressure Position [Right Arm] Pulse Oximetry 97 96 Oxygen Delivery Method Room Air Room Air Oxygen Flow Rate Sepsis Recent Fever Within 48 Hours No Sepsis New/Unexplained Change in Mental Status No Sepsis Action Taken by Nursing No Action Required 12/07/24 17:30 12/07/24 19:00 12/07/24 20:08 Temperature Temperature Source Pulse Rate 83 Pulse Rate [Right Brachial] 84 87 Pulse Rhythm [Right Brachial] Regular Pulse Strength [Right Brachial] Normal Respiratory Rate 20 18 Respiratory Effort / Characteristics Non-Labored Respiratory Depth Normal Respiratory Pattern Regular Blood Pressure Blood Pressure [Right Arm] 132/68 152/90 H Blood Pressure Mean Blood Pressure Mean [Right Arm] 89 110 Blood Pressure Position Blood Pressure Position [Right Arm] Lying Pulse Oximetry 96 98 Oxygen Delivery Method Room Air Oxygen Flow Rate Sepsis Recent Fever Within 48 Hours Sepsis New/Unexplained Change in Mental Status Sepsis Action Taken by Nursing 12/07/24 20:11 12/07/24 21:53 Temperature Temperature Source Pulse Rate Pulse Rate [Right Brachial] 87 85 Pulse Rhythm [Right Brachial] Pulse Strength [Right Brachial] Respiratory Rate 20 22 Respiratory Effort / Characteristics Respiratory Depth Respiratory Pattern Blood Pressure Blood Pressure [Right Arm] 163/71 H Blood Pressure Mean Blood Pressure Mean [Right Arm] 101 Blood Pressure Position Blood Pressure Position [Right Arm] Pulse Oximetry 99 97 Oxygen Delivery Method Nasal Cannula Oxygen Flow Rate 2 Sepsis Recent Fever Within 48 Hours Sepsis New/Unexplained Change in Mental Status Sepsis Action Taken by [facility] Medications Current Medication List: was personally reviewed by me Laboratory Data Attestation: I reviewed the patient's lab results. 12/07/24 15:42 12/07/24 15:42 Lab Results 12/07/24 12/07/24 12/07/24 Range/Units 15:42 15:50 17:56 WBC 9.58 (4.8-10.8) K/ul RBC 4.24 (4.20-5.40) M/uL Hgb 13.0 (12.0-16.0) g/dl POC Hgb 13.6 (12.0-16.0) g/dl Hct 40.9 (37.0-47.0) % POC Hct 40 (37-47) % MCV 96.5 (80.0-100.0) fL MCH 30.7 (25.0-34.0) pg MCHC 31.8 L (32.0-36.0) g/dL RDW Std Deviation 45.5 (36.4-46.3) fL RDW Coeff of Real 12.7 (11.5-14.5) % Plt Count 292 (130-400) K/uL MPV 9.4 (9.4-12.4) fL Immature Gran % (Auto) 0.6 % Neut % (Auto) 68.2 % Lymph % (Auto) 21.5 % [place] % (Auto) 8.8 % Eos % (Auto) 0.6 % Baso % (Auto) 0.3 % Neut # (Auto) 6.53 H (1.40-6.50) K/uL Lymph # (Auto) 2.06 (1.20-3.40) K/uL [place] # (Auto) 0.84 H (0.11-0.59) K/uL Eos # (Auto) 0.06 (0.00-0.50) K/uL Baso # (Auto) 0.03 (0.00-0.20) K/uL Immature Gran # (Auto) 0.06 (0.01-0.20) K/uL POC Sodium 139 (135-144) mmol/L Sodium 140 (136-145) mmol/L POC Potassium 3.1 L (3.3-5.0) mmol/L Potassium 3.2 L (3.5-5.1) mmol/L POC Chloride 99 L (101-112) mmol/L Chloride 102 (98-107) mmol/L Carbon Dioxide 33 H (21-32) mmol/L POC Total CO2 28 (24-31) mmol/L Anion Gap 5 (3-11) POC Anion Gap 16.0 (16-25) mmol/L POC BUN 13 (7-18) mg/dl BUN 13 (6-23) mg/dl Creatinine 0.81 (0.6-1.2) mg/dl POC Creatinine 0.9 (0.6-1.3) mg/dl Est Cr Clr Drug Dosing 57.6 ml/min eGFR 75.19 BUN/Creatinine Ratio 16.0 (10-20) Glucose 102 H (70-99(Fasting)) mg/dl POC Glucose (other) 103 H (70-99) mg/dl Calcium 9.1 (8.6-10.3) mg/dl POC Ioniz Calcium Mike 1.14 (1.12-1.32) mmol/l Total Bilirubin 0.5 (0.2-1.0) mg/dl AST 13 (13-39) U/L ALT 12 (7-52) U/L Alkaline Phosphatase 71 (34-104) U/L Troponin I High Sens 5.5 (0-14) pg/ml Total Protein 6.9 (6.0-8.3) gm/dl Albumin 4.0 (3.4-5.0) gm/dl Globulin 2.9 (2.5-4.0) gm/dl Albumin/Globulin Ratio 1.4 (0.9-2) Lipase 14 (11-82) U/L Adenovirus (PCR) Not Detected (NotDetected) B. pertussis DNA (PCR) Not Detected (NotDetected) B.parapertussis DNA PCR Not Detected (NotDetected) C. pneumoniae DNA (PCR) Not Detected (NotDetected) Coronavirus OC43 (PCR) Not Detected (NotDetected) Coronavirus HKU1 (PCR) Not Detected (NotDetected) Coronavirus 229E (PCR) Not Detected (NotDetected) SARS-CoV-2 (PCR) Not Detected (NotDetected) Coronavirus NL63 (PCR) Not Detected (NotDetected) Human Metapneumovir PCR Not Detected (NotDetected) Influenza Type A (PCR) Not Detected (NotDetected) Influenza Type B (PCR) Not Detected (NotDetected) M. pneumoniae (PCR) Not Detected (NotDetected) Parainfluenza 1 (PCR) Not Detected (NotDetected) Parainfluenza 2 (PCR) Not Detected (NotDetected) Parainfluenza 3 (PCR) Not Detected (NotDetected) Parainfluenza 4 (PCR) Not Detected (NotDetected) RSV (PCR) Not Detected (NotDetected) Entero/Rhino (PCR) Not Detected (NotDetected) Administered Medications Discontinued Medications Albuterol (Albut/Ipratrop 3mg/0.5mg Neb 3 Ml Vial) 3 ml NEB NOW STA; Protocol Stop: 12/07/24 16:20 Last Admin: 12/07/24 17:09 Dose: 3 ml Documented By: RADHA Albuterol (Albut/Ipratrop 3mg/0.5mg Neb 3 Ml Vial) 3 ml NEB NOW STA; Protocol Stop: 12/07/24 18:53 Last Admin: 12/07/24 19:42 Dose: 3 ml Documented By: PATRICK Diphenhydramine HCl (Diphenhydramine 50 Mg/Ml Vial) 12.5 mg IV ONE ONE Stop: 12/07/24 16:20 Last Admin: 12/07/24 16:41 Dose: 12.5 mg Documented By: GINA Fentanyl Citrate (Fentanyl Citrate Pf 100 Mcg/2 Ml Vial) 25 mcg IV NOW STA Stop: 12/07/24 20:15 Last Admin: 12/07/24 20:58 Dose: Not Given Documented By: PATRICK Acetaminophen (Ofirmev) 1,000 mg in 100 mls @ 400 mls/hr IV NOW STA Stop: 12/07/24 16:33 Last Infusion: 12/07/24 18:22 Dose: Infused Documented By: Admin: 12/07/24 17:09 Dose: 400 mls/hr Documented By: RADHA Ioversol (Optiray 320 100ml) 93 ml IV ONCE ONE Stop: 12/07/24 16:59 Last Admin: 12/07/24 16:59 Dose: 93 ml Documented By: RACHELE Methylprednisolone (Methylprednisolone 125 Mg/2 Ml Vial) 125 mg IV NOW STA Stop: 12/07/24 16:20 Last Admin: 12/07/24 16:42 Dose: 125 mg Documented By: GINA Ondansetron HCl (Ondansetron Inj 2 Mg/Ml 2 Ml Vial) 4 mg IV NOW STA Stop: 12/07/24 16:20 Last Admin: 12/07/24 16:41 Dose: 4 mg Documented By: GINA Imaging Data Radiologist's Impression: Abdomen/Pelvis CT 12/07/24 16:19 EXAM: CT abd pelvis IV con only CLINICAL HISTORY: back pain TECHNIQUE: CT of the abdomen and pelvis was performed with contrast, with the following protocol: axial images with, and reconstructed coronal and sagittal images. One of the following dose reduction techniques was utilized for this exam: Automated exposure control, adjustment of the mA and/or kV according to patient size, and use of iterative reconstruction. DLP: 1275 mGy-cm, CTDI: 25.2 mGy. COMPARISON: Comparison is made with [previous imaging studies dated 07/12/2024 FINDINGS: Abdomen: Liver: enlarged in size, shape, and density. No focal lesions, cysts, or masses were identified. Hepatic vasculature and biliary ducts are unremarkable. Gallbladder and Biliary System: The gallbladder is normal in size and shape. No wall thickening, pericholecystic fluid, or gallstones were identified. The common bile duct is normal in caliber without dilation. Pancreas: Pancreatic head, body, and tail are visualized and appear normal in size and density. No pancreatic masses or calcifications were noted. The pancreatic duct is not dilated. Spleen: Normal in size, shape, and density. No splenic lesions or masses were identified. Appendix: not proper visuazlied Kidneys and Adrenal Glands: Both kidneys are normal in size, shape, and position. left maxwell-nephric collection and calcification measuring 7.2x0.8 cm , minimal right perinephric collection seen Cortical thickness is within normal limits. No renal calculi or hydronephrosis. Adrenal glands bilateral renal adenomas Pelvis: Urinary Bladder: Normal in contour and wall thickness. No intraluminal lesions identified. Uterus: not properly visualized No masses or abnormal thickening. Ovaries: Not well visualized, but no gross abnormalities noted. Peritoneal and Retroperitoneal Structures: No free fluid or abnormal fluid collections were identified within the abdomen or pelvis. No lymphadenopathy was noted. Bowel: The visualized bowel loops are normal in caliber and appearance. No evidence of bowel obstruction or wall thickening. Bones and Soft Tissues: Pelvic bones and soft tissues are unremarkable. No fractures or abnormal masses were identified. The right hip replacement is degrading the image quality Right basal lung atelactic band Degenrative lumber changes Aortic atherosclerotic changes IMPRESSION: 1. Left perinephric collection, possible perinephric hematoma, stable 2. Bilateral suprareanl adenoma , stable Electronically signed by Kirk Jackson 12-07-2024 6:14 PM Chest X-Ray 12/07/24 16:19 EXAM: XR chest 1V portable CLINICAL HISTORY: Cough/sob. TECHNIQUE: An X-ray image of the chest is obtained in PA projection. COMPARISON: CR dated 11/13/2024. FINDINGS: Pulmonary Parenchyma: Bilateral increased vascular markings are likely congestion. right-sided lower lung zone thick atelectatic band. No evidence of consolidation, collapse. No evidence of pleural effusion or pleural thickening. Heart and Mediastinum: Heart size and shape are normal. No mediastinal widening or masses. No hilar or mediastinal lymphadenopathy. Atherosclerotic changes of the aorta. Bony Thorax: Bony thorax appears intact without fractures or deformities. Soft Tissues: Soft tissues overlying the chest wall are unremarkable. IMPRESSION: 1. Bilateral increased vascular markings are likely congestion (unchanged), clinical correlation is recommended. 2. right-sided lower lung zone thick atelectatic band (newly developed). Electronically signed by Kirk Jackson 12-07-2024 5:18 PM Discharge Plan Visit Data Chief Complaint: Pain (Generalized) Stated Complaint: BACK/ARMS/LEGS/HAND PAIN, SOB ED Provider: Keanu Corey Discharge Problem: Dyspnea, Hypoxia, Acute exacerbation of chronic obstructive pulmonary disease, Abdominal pain Patient Disposition: Admitted As Inpatient Discharge Instructions Interventions: ED Discharge Assessment Last Done: 12/07/24 21:57 Forms Stand Alone Forms: [employer] Prescriptions Prescriptions: No Action pantoprazole 40 mg Tablet,Delayed Release (Dr/Ec) 40 mg PO QAM Qty: 30 0RF furosemide 40 mg tablet 40 mg PO DAILY Qty: 30 0RF atorvastatin 40 mg Tablet 40 mg PO QAM Qty: 60 0RF metoprolol succinate [Toprol XL] 50 mg tablet extended release 24 hr 50 mg PO QAM Qty: 60 0RF cyanocobalamin (vitamin B-12) [Vitamin B-12] 1,000 mcg Tablet 1,000 mcg PO QAM Qty: 30 0RF potassium chloride 10 mEq tablet extended release 10 meq PO QAM Qty: 30 0RF aspirin 81 mg Tablet,Delayed Release (Dr/Ec) 81 mg PO QAM Qty: 30 0RF calcium carbonate [Calcium 600] 600 mg calcium (1,500 mg) Tablet 600 mg PO QAM Qty: 60 0RF buspirone 10 mg tablet 10 mg PO BID Qty: 60 0RF Rx Instructions: AM & HS albuterol sulfate [Ventolin HFA] 90 mcg/actuation Hfa Aerosol Inhaler 2 puff INHALATION Q6H PRN (Reason: Shortness Of Breath) Qty: 6.7 0RF hydroxyzine HCl 10 mg tablet 10 mg PO TID PRN (Reason: anxiety) Qty: 10 0RF duloxetine 60 mg Capsule,Delayed Release(Dr/Ec) 60 mg PO HS Qty: 60 0RF cholecalciferol (vitamin D3) [Vitamin D3] 50 mcg (2,000 unit) Capsule 50 mcg PO QAM Qty: 30 0RF Eliquis 2.5 mg tablet 2.5 mg PO BID Qty: 60 0RF guaifenesin [Mucinex] 600 mg Tablet Extended Release 12hr 600 mg PO BID PRN (Reason: Congestion) Qty: 60 0RF fluticasone furoate-vilanterol [Breo Ellipta] 200-25 mcg/dose blister with device 1 inh INHALATION QAM Qty: 60 0RF albuterol sulfate 0.63 mg/3 mL solution for nebulization 0.63 mg continuous nebulization DIRECTED PRN (Reason: Shortness Of Breath Or Wheezing) ondansetron 4 mg tablet,disintegrating 4 mg PO Q8H PRN (Reason: nausea and vomiting) cyclobenzaprine 10 mg Tablet 10 mg PO Q8H PRN (Reason: muscle spasm) Qty: 30 0RF Rx Instructions: per pt she still takes medication, no fill history available. lactulose 10 gram/15 mL solution 30 ml PO BID PRN (Reason: NEEDED PER PT) Spiriva Respimat 1.25 mcg/actuation mist 2 puff INHALATION QAM polyethylene glycol 3350 [Miralax] 17 gram powder in packet 17 g PO DAILY PRN (Reason: Constipation) tizanidine 4 mg tablet 4 mg PO BID tramadol 50 mg tablet 50 mg PO Q8H PRN (Reason: Pain) sennosides-docusate sodium [Senokot-S] 8.6-50 mg tablet 2 tab PO BID Referrals Referrals: Perfecto Sauceda DO [Primary Care Provider] - Discharge Problem: Dyspnea Qualifiers: Dyspnea type: unspecified Qualified Code(s): R06.00 - Dyspnea, unspecified Abdominal pain Qualifiers: Abdominal location: right lower quadrant Qualified Code(s): R10.31 - Right lower quadrant pain
[2024-12-07] MEDS: ONDANSETRON INJ 2 MG/ML 2 ML VIAL IV STA (16:41)
[2024-12-07] MEDS: diphenhydrAMINE 50 MG/ML VIAL IV ONE (16:41)
[2024-12-07] MEDS: methylPREDNISolone 125 MG/2 ML VIAL IV STA (16:42)
[2024-12-07 16:45] LABS: Basophils # (auto) 0.03 K/uL (0.00-0.20); Basophils % (auto) 0.3 %; Eosinophils # (auto) 0.06 K/uL (0.00-0.50); Eosinophils % (auto) 0.6 %; Hematocrit (blood only) 40.9 % (37.0-47.0); Immature Granulocytes # (auto) 0.06 K/uL (0.01-0.20); Immature Granulocytes % (auto) 0.6 %; Lymphocytes # (auto) 2.06 K/uL (1.20-3.40); Lymphocytes % (auto) 21.5 %; Mean Corpuscular Hemoglobin 30.7 pg (25.0-34.0); Mean Corpuscular Hgb Conc 31.8 g/dL (32.0-36.0); Mean Corpuscular Volume 96.5 fL (80.0-100.0); Mean Platelet Volume 9.4 fL (9.4-12.4); Monocytes # (auto) 0.84 K/uL (0.11-0.59); Monocytes % (auto) 8.8 %; Neutrophils # (auto) 6.53 K/uL (1.40-6.50); Neutrophils % (auto) 68.2 %; Platelet Count 292 K/uL (130-400); RDW Coefficient of Variation 12.7 % (11.5-14.5); RDW Standard Deviation 45.5 fL (36.4-46.3); Red Blood Count 4.24 M/uL (4.20-5.40); White Blood Count 9.58 K/ul (4.8-10.8)
[2024-12-07 16:53] LABS: Albumin Globulin Ratio 1.4 (0.9-2); Bilirubin,Total 0.5 mg/dl (0.2-1.0); Calcium 9.1 mg/dl (8.6-10.3); Creatinine Clr Calc Pharmacy 57.6 ml/min; Globulin 2.9 gm/dl (2.5-4.0); Potassium 3.2 mmol/L (3.5-5.1); Total Protein 6.9 gm/dl (6.0-8.3)
[2024-12-07] MEDS: OPTIRAY 320 100ml IV ONE (16:59)
[2024-12-07 17:00] LABS: Troponin I High Sensitivity 5.5 pg/ml (0-14)
[2024-12-07] MEDS: ALBUT/IPRATROP 3MG/0.5MG NEB 3 ML VIAL NEB STA ×2 (17:09→19:42)
[2024-12-07] MEDS: ACETAMINOPHEN 1,000 MG/100 ML VIAL IV STA (17:09)
--- NOTE | 2024-12-07 17:18 | XRay Report ---
EXAM: XR chest 1V portable CLINICAL HISTORY: Cough/sob. TECHNIQUE: An X-ray image of the chest is obtained in PA projection. COMPARISON: CR dated 11/13/2024. FINDINGS: Pulmonary Parenchyma: Bilateral increased vascular markings are likely congestion. right-sided lower lung zone thick atelectatic band. No evidence of consolidation, collapse. No evidence of pleural effusion or pleural thickening. Heart and Mediastinum: Heart size and shape are normal. No mediastinal widening or masses. No hilar or mediastinal lymphadenopathy. Atherosclerotic changes of the aorta. Bony Thorax: Bony thorax appears intact without fractures or deformities. Soft Tissues: Soft tissues overlying the chest wall are unremarkable. IMPRESSION: 1. Bilateral increased vascular markings are likely congestion (unchanged), clinical correlation is recommended. 2. right-sided lower lung zone thick atelectatic band (newly developed). Electronically signed by Kirk Jackson 12-07-2024 5:18 PM
--- NOTE | 2024-12-07 18:14 | CT Scan Report ---
EXAM: CT abd pelvis IV con only CLINICAL HISTORY: back pain TECHNIQUE: CT of the abdomen and pelvis was performed with contrast, with the following protocol: axial images with, and reconstructed coronal and sagittal images. One of the following dose reduction techniques was utilized for this exam: Automated exposure control, adjustment of the mA and/or kV according to patient size, and use of iterative reconstruction. DLP: 1275 mGy-cm, CTDI: 25.2 mGy. COMPARISON: Comparison is made with [previous imaging studies dated 07/12/2024 FINDINGS: Abdomen: Liver: enlarged in size, shape, and density. No focal lesions, cysts, or masses were identified. Hepatic vasculature and biliary ducts are unremarkable. Gallbladder and Biliary System: The gallbladder is normal in size and shape. No wall thickening, pericholecystic fluid, or gallstones were identified. The common bile duct is normal in caliber without dilation. Pancreas: Pancreatic head, body, and tail are visualized and appear normal in size and density. No pancreatic masses or calcifications were noted. The pancreatic duct is not dilated. Spleen: Normal in size, shape, and density. No splenic lesions or masses were identified. Appendix: not proper visuazlied Kidneys and Adrenal Glands: Both kidneys are normal in size, shape, and position. left maxwell-nephric collection and calcification measuring 7.2x0.8 cm , minimal right perinephric collection seen Cortical thickness is within normal limits. No renal calculi or hydronephrosis. Adrenal glands bilateral renal adenomas Pelvis: Urinary Bladder: Normal in contour and wall thickness. No intraluminal lesions identified. Uterus: not properly visualized No masses or abnormal thickening. Ovaries: Not well visualized, but no gross abnormalities noted. Peritoneal and Retroperitoneal Structures: No free fluid or abnormal fluid collections were identified within the abdomen or pelvis. No lymphadenopathy was noted. Bowel: The visualized bowel loops are normal in caliber and appearance. No evidence of bowel obstruction or wall thickening. Bones and Soft Tissues: Pelvic bones and soft tissues are unremarkable. No fractures or abnormal masses were identified. The right hip replacement is degrading the image quality Right basal lung atelactic band Degenrative lumber changes Aortic atherosclerotic changes IMPRESSION: 1. Left perinephric collection, possible perinephric hematoma, stable 2. Bilateral suprareanl adenoma , stable Electronically signed by Kirk Jackson 12-07-2024 6:14 PM
[2024-12-07 18:58] LABS: Adenovirus PCR Not Detected (NotDetected); Bordetella parapertussis PCR Not Detected (NotDetected); Bordetella pertussis PCR Not Detected (NotDetected); Chlamydia pneumoniae PCR Not Detected (NotDetected); Coronavirus 229E PCR Not Detected (NotDetected); Coronavirus CoV-2 (COVID19)PCR Not Detected (NotDetected); Coronavirus HKU1 PCR Not Detected (NotDetected); Coronavirus NL63 PCR Not Detected (NotDetected); Coronavirus OC43PCR Not Detected (NotDetected); Human Metapneumovirus PCR Not Detected (NotDetected); Influenza A PCR Not Detected (NotDetected); Influenza B PCR Not Detected (NotDetected); Mycoplasma pneumoniae PCR Not Detected (NotDetected); Parainfluenza Virus 1 PCR Not Detected (NotDetected); Parainfluenza Virus 2 PCR Not Detected (NotDetected); Parainfluenza Virus 3 PCR Not Detected (NotDetected); Parainfluenza Virus 4 PCR Not Detected (NotDetected); Respiratory Syncytial VirusPCR Not Detected (NotDetected); Rhinovirus/Enterovirus PCR Not Detected (NotDetected)
[2024-12-07] MEDS: fentaNYL citrate PF 100 MCG/2 ML VIAL IV STA (20:58)
--- NOTE | 2024-12-07 21:15 | History & Physical Report ---
Date of Service December 07, 2024 Assessment & Plan (1) Back pain: Plan: 74-year-old female with past medical history significant for hypercholesterolemia, hypokalemia, COPD, paroxysmal atrial fibrillation, hypertension, LVH, GERD, B12 deficiency, burning mouth syndrome, displacement of internal right hip prosthesis, generalized osteoarthritis, cervical spondylosis, brachial neuritis, osteoporosis, osteoarthritis, migraine, lupus anticoagulant positive, history of PE, moderate episode of depression, anxiety, history of CVA, history of right total hip replacement, mild cognitive impairment, lumbar spinal stenosis who lives alone at home and walks without support and son lives close by was brought in because of severe back pain and abdominal pain. Patient states since last she is having lot of back pain and right-sided abdominal pain radiating to the right flank. Any bending over making the pain worse. She is constipated. No bowel or bladder incontinence. No fevers. No chest pain. No shortness of breath. Having cough and brings up phlegm. Ongoing smoking. Denies headache. Some runny nose. Hemodynamics are okay. Son is in the room and is concerned for severe back pain and abdominal pain and also hematoma on the kidney.Patient is also having this ongoing rash going on since October and there is a plan to follow with dermatology on 11/29/2024. Severe back pain Abdominal pain CT abdomen pelvis left perinephric collection possible perinephric hematoma stable. Bilateral suprarenal adenoma stable. Will follow MRI scans Pain control Mild COPD exacerbation Nebs ATC and as needed Continue home inhalers Short course of steroids Lupus anticoagulant positive History of PE On Eliquis Paroxysmal atrial fibrillation On metoprolol succinate and Eliquis Depression and anxiety On duloxetine, buspirone and hydroxyzine as needed Hypertension On metoprolol succinate and Lasix Will monitor GERD On Protonix History of CVA On statin and aspirin and Eliquis Ongoing rash Has appointment with dermatology DVT prophylaxis Eliquis Disposition Med/telemetry Full code. History of Present Illness Chief Complaint: Abdominal pain and back pain Primary Care Provider: Perfecto Sauceda DO 74-year-old female with past medical history significant for hypercholesterolemia, hypokalemia, COPD, paroxysmal atrial fibrillation, hypertension, LVH, GERD, B12 deficiency, burning mouth syndrome, displacement of internal right hip prosthesis, generalized osteoarthritis, cervical spondylosis, brachial neuritis, osteoporosis, osteoarthritis, migraine, lupus anticoagulant positive, history of PE, moderate episode of depression, anxiety, history of CVA, history of right total hip replacement, mild cognitive impairment, lumbar spinal stenosis who lives alone at home and walks without support and son lives close by was brought in because of severe back pain and abdominal pain. Patient states since last she is having lot of back pain and right-sided abdominal pain radiating to the right flank. Any bending over making the pain worse. She is constipated. No bowel or bladder incontinence. No fevers. No chest pain. No shortness of breath. Having cough and brings up phlegm. Ongoing smoking. Denies headache. Some runny nose. Hemodynamics are okay. Son is in the room and is concerned for severe back pain and abdominal pain and also hematoma on the kidney.Patient is also having this ongoing rash going on since October and there is a plan to follow with dermatology on 11/29/2024. Past medical history. As mentioned above Past surgical history. Right total knee arthroplasty. Colonoscopy and EGD. Partial hysterectomy. Cataracts. Bilateral shoulder arthroscopy. Sinus surgery. Right total hip replacement. Social history. . Smoked 0.5 pack a day for 60 years. No alcohol use. No drug use. Family history. Father had Alzheimer's disease. Emphysema. Mother had colon cancer. Heart disease. Tuberculosis. Sister stroke ruptured aneurysm. History of rheumatoid arthritis. History of pulm embolism. Sister ovarian cancer. Brother had esophageal cancer. Allergies Allergy/AdvReac Type Severity Reaction Status Date / Time Iodinated Contrast Media Allergy Intermediate Hives Verified 11/13/24 20:02 oxycodone AdvReac Severe confusion Verified 11/13/24 20:02 Home Medications Medication Instructions Recorded Confirmed Type albuterol sulfate 90 mcg/actuation 2 puff inhalation Q6H PRN 11/23/23 12/07/24 Rx aerosol inhaler (Ventolin HFA) Shortness Of Breath #6.7 grams apixaban 2.5 mg tablet (Eliquis) 2.5 mg PO BID #60 tabs 11/23/23 12/07/24 Rx aspirin 81 mg tablet,delayed 81 mg PO QAM #30 tabs 11/23/23 12/07/24 Rx release atorvastatin 40 mg tablet 40 mg PO QAM #60 tabs 11/23/23 12/07/24 Rx buspirone 10 mg tablet 10 mg PO BID #60 tabs 11/23/23 12/07/24 Rx calcium carbonate (Calcium 600) 600 mg PO QAM #60 tabs 11/23/23 12/07/24 Rx cholecalciferol (vitamin D3) 50 50 mcg PO QAM #30 caps 11/23/23 12/07/24 Rx mcg (2,000 unit) capsule (Vitamin D3) cyanocobalamin (vitamin B-12) 1,000 mcg PO QAM #30 tabs 11/23/23 12/07/24 Rx 1,000 mcg tablet (Vitamin B-12) duloxetine 60 mg capsule,delayed 60 mg PO HS #60 caps 11/23/23 12/07/24 Rx release fluticasone furoate 200 1 inh inhalation QAM #60 ea 11/23/23 12/07/24 Rx mcg-vilanterol 25 mcg/dose inhalation powder (Breo Ellipta) furosemide 40 mg tablet 40 mg PO DAILY #30 tabs 11/23/23 12/07/24 Rx guaifenesin 600 mg tablet, 600 mg PO BID PRN Congestion #60 11/23/23 12/07/24 Rx extended release 12 hr (Mucinex) tabs hydroxyzine HCl 10 mg tablet 10 mg PO TID PRN anxiety #10 tabs 11/23/23 12/07/24 Rx metoprolol succinate 50 mg 50 mg PO QAM #60 tabs 11/23/23 12/07/24 Rx tablet,extended release 24 hr (Toprol XL) pantoprazole 40 mg tablet,delayed 40 mg PO QAM #30 tabs 11/23/23 12/07/24 Rx release potassium chloride 10 mEq 10 meq PO QAM #30 tabs 11/23/23 12/07/24 Rx tablet,extended release albuterol sulfate 0.63 mg/3 mL 0.63 mg continuous nebulization 12/03/23 12/07/24 History solution for nebulization DIRECTED PRN Shortness Of Breath Or Wheezing ondansetron 4 mg disintegrating 4 mg PO Q8H PRN nausea and vomiting 12/03/23 12/07/24 History tablet cyclobenzaprine 10 mg tablet 10 mg PO Q8H PRN muscle spasm #30 12/07/23 12/07/24 Rx tabs lactulose 10 gram/15 mL oral 30 ml PO BID PRN NEEDED PER PT 10/26/24 12/07/24 History solution tiotropium bromide 1.25 2 puff inhalation QAM 10/26/24 12/07/24 History mcg/actuation mist for inhalation (Spiriva Respimat) polyethylene glycol 3350 17 gram 17 g PO DAILY PRN Constipation 11/13/24 12/07/24 History oral powder packet (Miralax) sennosides 8.6 mg-docusate sodium 2 tab PO BID 12/07/24 12/07/24 History 50 mg tablet (Senokot-S) tizanidine 4 mg tablet 4 mg PO BID 12/07/24 12/07/24 History tramadol 50 mg tablet 50 mg PO Q8H PRN Pain 12/07/24 12/07/24 History Past Med/Surg History Problem List (Updated 12/07/24 @ 22:13 by Keanu Corey MD) Abdominal pain (Acute) Acute exacerbation of chronic obstructive pulmonary disease (Acute) Hypoxia (Acute) Dyspnea (Acute) Back pain Contusion of knee, right Anemia (Acute) Fall (Acute) Hip hematoma, right (Acute) Dislocation of hip prosthesis (Acute) History of pulmonary embolism Anticoagulant long-term use (Acute) Closed fracture of right hip (Acute) Fall (Acute) Carpal tunnel syndrome, bilateral upper limbs Rotator cuff arthropathy of right shoulder Hallucinations (Acute) Elevated international normalized ratio (INR) (Acute) Weakness (Acute) Acute pain of right lower extremity (Acute) Supratherapeutic INR Tobacco use AMS (altered mental status) Status post right knee replacement (~02/2023) Encounter for pre-operative examination SOB (shortness of breath) (Acute) SOB (shortness of breath) (Acute) Acute bronchitis (Acute) Hypoxia (Acute) COPD (chronic obstructive pulmonary disease) (Chronic) Bronchitis (Acute) Pneumonia Left sided chest pain (Acute) Leukocytosis (Acute) Pulmonary embolism on right (Chronic) Lung nodule < 6cm on CT Tobacco abuse Pulmonary emboli 2019--on warfarin daily Acute CVA (cerebrovascular accident) (Acute) Lupus anticoagulant positive (Chronic) Neck pain on left side Acute right flank pain Full code status Contusion of left hand Trigger finger, right ring finger Trigger finger, left ring finger Trigger finger of right hand Osteoarthritis of right knee Osteoarthritis of left knee S/P trigger finger release Right trigger finger release (04/29/21): [facility] at [facility] Emphysema lung COPD (chronic obstructive pulmonary disease) (Acute) Medical History Arthritis Chronic pain A-fib Paroxysmal Follows with [facility] Taking warfarin History of pulmonary embolism 2019, Taking warfarin Migraine Hypertension Hyperlipidemia Poor historian Memory loss TIA (transient ischemic attack) 2019 Lupus Surgical History S/P total right hip arthroplasty History of total hysterectomy with bilateral salpingo-oophorectomy (BSO) History of arthroscopy of left shoulder History of arthroscopy of right shoulder History of tooth extraction all upper teeth History of sinus surgery History of bilateral cataract extraction Family History Other Cancer Heart disease Hypertension No family history of adverse response to anesthesia Social History Smoking Status: Current every day smoker Tobacco Type: Cigarettes Cigarettes Per Day: 4; Second Hand Exposure: Yes; Do You Dip or Chew Tobacco: No; Hx Alcohol Use: No Hx Substance Use: No Preferred Language: Hungarian Communication Ability: Effective Visual Impairment: No Limitations Technical Associate Required: No Beliefs That Will Affect Care: None marital status: Current Living Situation: Alone current occupational status: retired Other Information That Helps Us Care for You: No Feels Safe at Home: Yes Safety Concerns: Feels Safe At This Time Assistive Devices: Cane, Denture - Upper and Walker Review of Systems Review of Systems: All systems reviewed & are unremarkable except as noted in HPI & below Physical Exam Physical Exam: General- Not in distress Head- atraumatic Eyes- PERRL. ENT- oropharynx clear Neck- supple, no JVD. Lungs- clear to auscultation no wheezing or crackles Heart- regular rate and rhythm; no murmur, no gallop. Abdomen- normal bowel sounds, soft, diffuse abdominal discomfort, no distension Extremities- lower extremity edema present, moves extremities Neuro- alert, oriented PERRL,no facial palsy; no dysarthria; moves extremities Skin-macular rash seen on extremities and some on face Results & Data Results & Data Vital Signs (Past 12 Hours) Vital Signs Temp Pulse Pulse Resp BP BP Pulse Ox 12/07/24 20:11 87 20 99 12/07/24 20:08 83 12/07/24 19:00 87 18 152/90 H 98 12/07/24 17:30 84 20 132/68 96 12/07/24 16:19 96 12/07/24 16:05 82 12/07/24 15:33 36.9 C 85 19 114/76 97 O2 Del Method 12/07/24 20:11 12/07/24 20:08 12/07/24 19:00 12/07/24 17:30 Room Air 12/07/24 16:19 Room Air 12/07/24 16:05 12/07/24 15:33 Room Air Diagnostic Findings Laboratory Results WBC 9.58 K/ul (4.8-10.8) 12/07/24 15:42 RBC 4.24 M/uL (4.20-5.40) 12/07/24 15:42 Hgb 13.0 g/dl (12.0-16.0) 12/07/24 15:42 POC Hgb 13.6 g/dl (12.0-16.0) 12/07/24 15:50 Hct 40.9 % (37.0-47.0) 12/07/24 15:42 POC Hct 40 % (37-47) 12/07/24 15:50 MCV 96.5 fL (80.0-100.0) 12/07/24 15:42 MCH 30.7 pg (25.0-34.0) 12/07/24 15:42 MCHC 31.8 g/dL (32.0-36.0) L 12/07/24 15:42 RDW Std Deviation 45.5 fL (36.4-46.3) 12/07/24 15:42 RDW Coeff of Real 12.7 % (11.5-14.5) 12/07/24 15:42 Plt Count 292 K/uL (130-400) 12/07/24 15:42 MPV 9.4 fL (9.4-12.4) 12/07/24 15:42 Immature Gran % (Auto) 0.6 % 12/07/24 15:42 Neut % (Auto) 68.2 % 12/07/24 15:42 Lymph % (Auto) 21.5 % 12/07/24 15:42 Churchill % (Auto) 8.8 % 12/07/24 15:42 Eos % (Auto) 0.6 % 12/07/24 15:42 Baso % (Auto) 0.3 % 12/07/24 15:42 Neut # (Auto) 6.53 K/uL (1.40-6.50) H 12/07/24 15:42 Lymph # (Auto) 2.06 K/uL (1.20-3.40) 12/07/24 15:42 Churchill # (Auto) 0.84 K/uL (0.11-0.59) H 12/07/24 15:42 Eos # (Auto) 0.06 K/uL (0.00-0.50) 12/07/24 15:42 Baso # (Auto) 0.03 K/uL (0.00-0.20) 12/07/24 15:42 Immature Gran # (Auto) 0.06 K/uL (0.01-0.20) 12/07/24 15:42 POC Sodium 139 mmol/L (135-144) 12/07/24 15:50 Sodium 140 mmol/L (136-145) 12/07/24 15:42 POC Potassium 3.1 mmol/L (3.3-5.0) L 12/07/24 15:50 Potassium 3.2 mmol/L (3.5-5.1) L 12/07/24 15:42 POC Chloride 99 mmol/L (101-112) L 12/07/24 15:50 Chloride 102 mmol/L (98-107) 12/07/24 15:42 Carbon Dioxide 33 mmol/L (21-32) H 12/07/24 15:42 POC Total CO2 28 mmol/L (24-31) 12/07/24 15:50 Anion Gap 5 (3-11) 12/07/24 15:42 POC Anion Gap 16.0 mmol/L (16-25) 12/07/24 15:50 POC BUN 13 mg/dl (7-18) 12/07/24 15:50 BUN 13 mg/dl (6-23) 12/07/24 15:42 Creatinine 0.81 mg/dl (0.6-1.2) 12/07/24 15:42 POC Creatinine 0.9 mg/dl (0.6-1.3) 12/07/24 15:50 Est Cr Clr Drug Dosing 57.6 ml/min 12/07/24 15:42 eGFR 75.19 12/07/24 15:42 BUN/Creatinine Ratio 16.0 (10-20) 12/07/24 15:42 Glucose 102 mg/dl (70-99(Fasting)) H 12/07/24 15:42 POC Glucose (other) 103 mg/dl (70-99) H 12/07/24 15:50 Calcium 9.1 mg/dl (8.6-10.3) 12/07/24 15:42 POC Ioniz Calcium Mike 1.14 mmol/l (1.12-1.32) 12/07/24 15:50 Total Bilirubin 0.5 mg/dl (0.2-1.0) 12/07/24 15:42 AST 13 U/L (13-39) 12/07/24 15:42 ALT 12 U/L (7-52) 12/07/24 15:42 Alkaline Phosphatase 71 U/L (34-104) 12/07/24 15:42 Troponin I High Sens 5.5 pg/ml (0-14) 12/07/24 15:42 Total Protein 6.9 gm/dl (6.0-8.3) 12/07/24 15:42 Albumin 4.0 gm/dl (3.4-5.0) 12/07/24 15:42 Globulin 2.9 gm/dl (2.5-4.0) 12/07/24 15:42 Albumin/Globulin Ratio 1.4 (0.9-2) 12/07/24 15:42 Lipase 14 U/L (11-82) 12/07/24 15:42 Adenovirus (PCR) Not Detected (NotDetected) 12/07/24 17:56 B. pertussis DNA (PCR) Not Detected (NotDetected) 12/07/24 17:56 B.parapertussis DNA PCR Not Detected (NotDetected) 12/07/24 17:56 C. pneumoniae DNA (PCR) Not Detected (NotDetected) 12/07/24 17:56 Coronavirus OC43 (PCR) Not Detected (NotDetected) 12/07/24 17:56 Coronavirus HKU1 (PCR) Not Detected (NotDetected) 12/07/24 17:56 Coronavirus 229E (PCR) Not Detected (NotDetected) 12/07/24 17:56 SARS-CoV-2 (PCR) Not Detected (NotDetected) 12/07/24 17:56 Coronavirus NL63 (PCR) Not Detected (NotDetected) 12/07/24 17:56 Human Metapneumovir PCR Not Detected (NotDetected) 12/07/24 17:56 Influenza Type A (PCR) Not Detected (NotDetected) 12/07/24 17:56 Influenza Type B (PCR) Not Detected (NotDetected) 12/07/24 17:56 M. pneumoniae (PCR) Not Detected (NotDetected) 12/07/24 17:56 Parainfluenza 1 (PCR) Not Detected (NotDetected) 12/07/24 17:56 Parainfluenza 2 (PCR) Not Detected (NotDetected) 12/07/24 17:56 Parainfluenza 3 (PCR) Not Detected (NotDetected) 12/07/24 17:56 Parainfluenza 4 (PCR) Not Detected (NotDetected) 12/07/24 17:56 RSV (PCR) Not Detected (NotDetected) 12/07/24 17:56 Entero/Rhino (PCR) Not Detected (NotDetected) 12/07/24 17:56 Impressions Abdomen/Pelvis CT 12/07/24 16:19 EXAM: CT abd pelvis IV con only CLINICAL HISTORY: back pain TECHNIQUE: CT of the abdomen and pelvis was performed with contrast, with the following protocol: axial images with, and reconstructed coronal and sagittal images. One of the following dose reduction techniques was utilized for this exam: Automated exposure control, adjustment of the mA and/or kV according to patient size, and use of iterative reconstruction. DLP: 1275 mGy-cm, CTDI: 25.2 mGy. COMPARISON: Comparison is made with [previous imaging studies dated 07/12/2024 FINDINGS: Abdomen: Liver: enlarged in size, shape, and density. No focal lesions, cysts, or masses were identified. Hepatic vasculature and biliary ducts are unremarkable. Gallbladder and Biliary System: The gallbladder is normal in size and shape. No wall thickening, pericholecystic fluid, or gallstones were identified. The common bile duct is normal in caliber without dilation. Pancreas: Pancreatic head, body, and tail are visualized and appear normal in size and density. No pancreatic masses or calcifications were noted. The pancreatic duct is not dilated. Spleen: Normal in size, shape, and density. No splenic lesions or masses were identified. Appendix: not proper visuazlied Kidneys and Adrenal Glands: Both kidneys are normal in size, shape, and position. left maxwell-nephric collection and calcification measuring 7.2x0.8 cm , minimal right perinephric collection seen Cortical thickness is within normal limits. No renal calculi or hydronephrosis. Adrenal glands bilateral renal adenomas Pelvis: Urinary Bladder: Normal in contour and wall thickness. No intraluminal lesions identified. Uterus: not properly visualized No masses or abnormal thickening. Ovaries: Not well visualized, but no gross abnormalities noted. Peritoneal and Retroperitoneal Structures: No free fluid or abnormal fluid collections were identified within the abdomen or pelvis. No lymphadenopathy was noted. Bowel: The visualized bowel loops are normal in caliber and appearance. No evidence of bowel obstruction or wall thickening. Bones and Soft Tissues: Pelvic bones and soft tissues are unremarkable. No fractures or abnormal masses were identified. The right hip replacement is degrading the image quality Right basal lung atelactic band Degenrative lumber changes Aortic atherosclerotic changes IMPRESSION: 1. Left perinephric collection, possible perinephric hematoma, stable 2. Bilateral suprareanl adenoma , stable Electronically signed by Kirk Jackson 12-07-2024 6:14 PM Chest X-Ray 12/07/24 16:19 EXAM: XR chest 1V portable CLINICAL HISTORY: Cough/sob. TECHNIQUE: An X-ray image of the chest is obtained in PA projection. COMPARISON: CR dated 11/13/2024. FINDINGS: Pulmonary Parenchyma: Bilateral increased vascular markings are likely congestion. right-sided lower lung zone thick atelectatic band. No evidence of consolidation, collapse. No evidence of pleural effusion or pleural thickening. Heart and Mediastinum: Heart size and shape are normal. No mediastinal widening or masses. No hilar or mediastinal lymphadenopathy. Atherosclerotic changes of the aorta. Bony Thorax: Bony thorax appears intact without fractures or deformities. Soft Tissues: Soft tissues overlying the chest wall are unremarkable. IMPRESSION: 1. Bilateral increased vascular markings are likely congestion (unchanged), clinical correlation is recommended. 2. right-sided lower lung zone thick atelectatic band (newly developed). Electronically signed by Kirk Jackson 12-07-2024 5:18 PM Code Status & VTE Plan VTE Prophylaxis Plan VTE Prophylaxis will be ordered: Yes
[2024-12-07] MEDS ORDERED: guaiFENesin 600 MG TABCR PO PRN (22:22)
[2024-12-07] MEDS ORDERED: ALBUT/IPRATROP 3MG/0.5MG NEB 3 ML VIAL NEB PRN (22:22)
[2024-12-07] MEDS ORDERED: ALBUTEROL HFA 8 GM INHALER INH PRN (22:22)
[2024-12-07] MEDS ORDERED: CYCLOBENZAPRINE HCL 10 MG TAB PO PRN (22:22)
[2024-12-07] MEDS ORDERED: POLYETHYLENE (MIRALAX) 17 GM PACK PO PRN ×2 (22:22)
[2024-12-07] MEDS ORDERED: HYDROmorphone INJ 0.5 MG/0.5 ML SYR IV PRN (22:22)
[2024-12-07] MEDS ORDERED: hydrOXYzine HCl 10 MG TAB PO PRN (22:22)
[2024-12-07] MEDS ORDERED: NITROGLYCERIN SL 0.4 MG/TAB TAB SL PRN (22:22)
[2024-12-07] MEDS: busPIRone 5 MG TAB PO SCH (23:15)
[2024-12-07] MEDS: APIXABAN 2.5 MG TAB PO SCH (23:16)
[2024-12-07] MEDS: DULoxetine HCL 60 MG CAP PO SCH (23:16)
[2024-12-07] MEDS: tiZANidine HCL 4 MG TABLET PO SCH (23:16)
[2024-12-07] MEDS: DOCUSATE SODIUM/SENNA 50/8.6MG TAB PO SCH (23:18)
[2024-12-07] MEDS ORDERED: LACTULOSE SYRUP 20 GM/30 ML UDC PO PRN (23:33)
[2024-12-08 05:38] LABS: Basophils # (auto) 0.01 K/uL (0.00-0.20); Basophils % (auto) 0.1 %; Hematocrit (blood only) 37.1 % (37.0-47.0); Immature Granulocytes # (auto) 0.04 K/uL (0.01-0.20); Immature Granulocytes % (auto) 0.4 %; Lymphocytes # (auto) 0.89 K/uL (1.20-3.40); Lymphocytes % (auto) 9.7 %; Mean Corpuscular Hemoglobin 30.9 pg (25.0-34.0); Mean Corpuscular Hgb Conc 32.3 g/dL (32.0-36.0); Mean Corpuscular Volume 95.6 fL (80.0-100.0); Mean Platelet Volume 8.9 fL (9.4-12.4); Monocytes # (auto) 0.49 K/uL (0.11-0.59); Monocytes % (auto) 5.4 %; Neutrophils % (auto) 84.4 %; Platelet Count 256 K/uL (130-400); RDW Coefficient of Variation 12.4 % (11.5-14.5); RDW Standard Deviation 43.3 fL (36.4-46.3); Red Blood Count 3.88 M/uL (4.20-5.40); White Blood Count 9.13 K/ul (4.8-10.8)
[2024-12-08 05:55] LABS: BUN Creatinine Ratio 19.6 (10-20); Calcium 8.9 mg/dl (8.6-10.3); Creatinine Clr Calc Pharmacy 85.9 ml/min; Potassium 3.6 mmol/L (3.5-5.1)
[2024-12-08 06:11] LABS: Appearance Urine Clear (Clear); Bilirubin Urine Negative (Negative); Blood Urine Negative (Negative); Color Urine Yellow; Glucose Urine UA Negative (Negative); Ketones Urine Negative (Negative); Leukocyte Esterase Urine Negative (Negative); Nitrite Urine Negative (Negative); Protein Urine Negative (Negative); Specific Gravity Urine 1.026 (1.000-1.030); Urobilinogen Urine Negative (Negative); pH Urine 6.5 (4.5-7.5)
[2024-12-08] MEDS: ALBUT/IPRATROP 3MG/0.5MG NEB 3 ML VIAL NEB SCH (07:34)
--- NOTE | 2024-12-08 08:27 | Hospitalist Progress Note ---
Date of Service December 08, 2024 Assessment & Plan (1) Back pain: Plan: 74-year-old female with past medical history significant for hypercholesterolemia, hypokalemia, COPD, paroxysmal atrial fibrillation, hypertension, LVH, GERD, B12 deficiency, burning mouth syndrome, displacement of internal right hip prosthesis, generalized osteoarthritis, cervical spondylosis, brachial neuritis, osteoporosis, osteoarthritis, migraine, lupus anticoagulant positive, history of PE, moderate episode of depression, anxiety, history of CVA, history of right total hip replacement, mild cognitive impairment, lumbar spinal stenosis who lives alone at home and walks without support and son lives close by was brought in because of severe back pain and abdominal pain. Patient states since last she is having lot of back pain and right-sided abdominal pain radiating to the right flank. Any bending over making the pain worse. She is constipated. No bowel or bladder incontinence. No fevers. No chest pain. No shortness of breath. Having cough and brings up phlegm. Ongoing smoking. Denies headache. Some runny nose. Hemodynamics are okay. Son is in the room and is concerned for severe back pain and abdominal pain and also hematoma on the kidney.Patient is also having this ongoing rash going on since October and there is a plan to follow with dermatology on 11/29/2024. Severe back pain Abdominal pain CT abdomen pelvis left perinephric collection possible perinephric hematoma stable. Bilateral suprarenal adenoma stable. Will follow MRI scans Pain control Mild COPD exacerbation Nebs ATC and as needed Continue home inhalers Short course of steroids Lupus anticoagulant positive History of PE On Eliquis Paroxysmal atrial fibrillation On metoprolol succinate and Eliquis Depression and anxiety On duloxetine, buspirone and hydroxyzine as needed Hypertension On metoprolol succinate and Lasix Will monitor GERD On Protonix History of CVA On statin and aspirin and Eliquis Ongoing rash Has appointment with dermatology DVT prophylaxis Eliquis Disposition Med/telemetry Full code. Admission and Anticipated Discharge Date Admission Date: December 07, 2024 Subjective Pt seen in follow up of lower abd. pain and lower back pain, mild copd exacerb., constipation Results & Data Results & Data Vital Signs (Past 12 Hours) Vital Signs Temp Pulse Pulse Pulse Resp BP BP 12/08/24 07:53 36.5 C 83 16 125/42 L 12/08/24 07:34 83 18 12/08/24 07:19 79 12/08/24 04:00 36.5 C 81 18 128/72 12/07/24 22:35 80 12/07/24 22:25 12/07/24 22:25 36.5 C 80 16 117/64 12/07/24 22:22 12/07/24 21:53 85 22 163/71 H Pulse Ox Pulse Ox O2 Del Method O2 Del Method O2 Flow Rate O2 Flow Rate 12/08/24 07:53 98 Room Air 12/08/24 07:34 92 Room Air 12/08/24 07:19 12/08/24 04:00 98 Nasal Cannula 2 12/07/24 22:35 12/07/24 22:25 Nasal Cannula 3 12/07/24 22:25 95 Nasal Cannula 3 12/07/24 22:22 95 Nasal Cannula 3 12/07/24 21:53 97 Nasal Cannula 2 Laboratory Results 12/08/24 12/08/24 12/07/24 Range/Units 05:20 05:12 17:56 WBC 9.13 (4.8-10.8) K/ul RBC 3.88 L (4.20-5.40) M/uL Hgb 12.0 (12.0-16.0) g/dl POC Hgb (12.0-16.0) g/dl Hct 37.1 (37.0-47.0) % POC Hct (37-47) % MCV 95.6 (80.0-100.0) fL MCH 30.9 (25.0-34.0) pg MCHC 32.3 (32.0-36.0) g/dL RDW Std Deviation 43.3 (36.4-46.3) fL RDW Coeff of Real 12.4 (11.5-14.5) % Plt Count 256 (130-400) K/uL MPV 8.9 L (9.4-12.4) fL Immature Gran % (Auto) 0.4 % Neut % (Auto) 84.4 % Lymph % (Auto) 9.7 % [place] % (Auto) 5.4 % Eos % (Auto) 0.0 % Baso % (Auto) 0.1 % Neut # (Auto) 7.70 H (1.40-6.50) K/uL Lymph # (Auto) 0.89 L (1.20-3.40) K/uL [place] # (Auto) 0.49 (0.11-0.59) K/uL Eos # (Auto) 0.00 (0.00-0.50) K/uL Baso # (Auto) 0.01 (0.00-0.20) K/uL Immature Gran # (Auto) 0.04 (0.01-0.20) K/uL POC Sodium (135-144) mmol/L Sodium 142 (136-145) mmol/L POC Potassium (3.3-5.0) mmol/L Potassium 3.6 (3.5-5.1) mmol/L POC Chloride (101-112) mmol/L Chloride 107 (98-107) mmol/L Carbon Dioxide 31 (21-32) mmol/L POC Total CO2 (24-31) mmol/L Anion Gap 4 (3-11) POC Anion Gap (16-25) mmol/L POC BUN (7-18) mg/dl BUN 11 (6-23) mg/dl Creatinine 0.56 L (0.6-1.2) mg/dl POC Creatinine (0.6-1.3) mg/dl Est Cr Clr Drug Dosing 85.9 ml/min eGFR 94.53 BUN/Creatinine Ratio 19.6 (10-20) Glucose 121 H (70-99(Fasting)) mg/dl POC Glucose (other) (70-99) mg/dl Calcium 8.9 (8.6-10.3) mg/dl POC Ioniz Calcium Mike (1.12-1.32) mmol/l Magnesium 2.0 (1.7-2.4) mg/dl Total Bilirubin (0.2-1.0) mg/dl AST (13-39) U/L ALT (7-52) U/L Alkaline Phosphatase (34-104) U/L Troponin I High Sens (0-14) pg/ml Total Protein (6.0-8.3) gm/dl Albumin (3.4-5.0) gm/dl Globulin (2.5-4.0) gm/dl Albumin/Globulin Ratio (0.9-2) Lipase (11-82) U/L Urine Color Yellow Urine Appearance Clear (Clear) Urine pH 6.5 (4.5-7.5) Ur Specific [place] 1.026 (1.000-1.030) Urine Protein Negative (Negative) Urine Glucose (UA) Negative (Negative) Urine Ketones Negative (Negative) Urine Blood Negative (Negative) Urine Nitrite Negative (Negative) Urine Bilirubin Negative (Negative) Urine Urobilinogen Negative (Negative) Ur Leukocyte Esterase Negative (Negative) Adenovirus (PCR) Not Detected (NotDetected) B. pertussis DNA (PCR) Not Detected (NotDetected) B.parapertussis DNA PCR Not Detected (NotDetected) C. pneumoniae DNA (PCR) Not Detected (NotDetected) Coronavirus OC43 (PCR) Not Detected (NotDetected) Coronavirus HKU1 (PCR) Not Detected (NotDetected) Coronavirus 229E (PCR) Not Detected (NotDetected) SARS-CoV-2 (PCR) Not Detected (NotDetected) Coronavirus NL63 (PCR) Not Detected (NotDetected) Human Metapneumovir PCR Not Detected (NotDetected) Influenza Type A (PCR) Not Detected (NotDetected) Influenza Type B (PCR) Not Detected (NotDetected) M. pneumoniae (PCR) Not Detected (NotDetected) Parainfluenza 1 (PCR) Not Detected (NotDetected) Parainfluenza 2 (PCR) Not Detected (NotDetected) Parainfluenza 3 (PCR) Not Detected (NotDetected) Parainfluenza 4 (PCR) Not Detected (NotDetected) RSV (PCR) Not Detected (NotDetected) Entero/Rhino (PCR) Not Detected (NotDetected) 12/07/24 12/07/24 Range/Units 15:50 15:42 WBC 9.58 (4.8-10.8) K/ul RBC 4.24 (4.20-5.40) M/uL Hgb 13.0 (12.0-16.0) g/dl POC Hgb 13.6 (12.0-16.0) g/dl Hct 40.9 (37.0-47.0) % POC Hct 40 (37-47) % MCV 96.5 (80.0-100.0) fL MCH 30.7 (25.0-34.0) pg MCHC 31.8 L (32.0-36.0) g/dL RDW Std Deviation 45.5 (36.4-46.3) fL RDW Coeff of Real 12.7 (11.5-14.5) % Plt Count 292 (130-400) K/uL MPV 9.4 (9.4-12.4) fL Immature Gran % (Auto) 0.6 % Neut % (Auto) 68.2 % Lymph % (Auto) 21.5 % [place] % (Auto) 8.8 % Eos % (Auto) 0.6 % Baso % (Auto) 0.3 % Neut # (Auto) 6.53 H (1.40-6.50) K/uL Lymph # (Auto) 2.06 (1.20-3.40) K/uL [place] # (Auto) 0.84 H (0.11-0.59) K/uL Eos # (Auto) 0.06 (0.00-0.50) K/uL Baso # (Auto) 0.03 (0.00-0.20) K/uL Immature Gran # (Auto) 0.06 (0.01-0.20) K/uL POC Sodium 139 (135-144) mmol/L Sodium 140 (136-145) mmol/L POC Potassium 3.1 L (3.3-5.0) mmol/L Potassium 3.2 L (3.5-5.1) mmol/L POC Chloride 99 L (101-112) mmol/L Chloride 102 (98-107) mmol/L Carbon Dioxide 33 H (21-32) mmol/L POC Total CO2 28 (24-31) mmol/L Anion Gap 5 (3-11) POC Anion Gap 16.0 (16-25) mmol/L POC BUN 13 (7-18) mg/dl BUN 13 (6-23) mg/dl Creatinine 0.81 (0.6-1.2) mg/dl POC Creatinine 0.9 (0.6-1.3) mg/dl Est Cr Clr Drug Dosing 57.6 ml/min eGFR 75.19 BUN/Creatinine Ratio 16.0 (10-20) Glucose 102 H (70-99(Fasting)) mg/dl POC Glucose (other) 103 H (70-99) mg/dl Calcium 9.1 (8.6-10.3) mg/dl POC Ioniz Calcium Mike 1.14 (1.12-1.32) mmol/l Magnesium (1.7-2.4) mg/dl Total Bilirubin 0.5 (0.2-1.0) mg/dl AST 13 (13-39) U/L ALT 12 (7-52) U/L Alkaline Phosphatase 71 (34-104) U/L Troponin I High Sens 5.5 (0-14) pg/ml Total Protein 6.9 (6.0-8.3) gm/dl Albumin 4.0 (3.4-5.0) gm/dl Globulin 2.9 (2.5-4.0) gm/dl Albumin/Globulin Ratio 1.4 (0.9-2) Lipase 14 (11-82) U/L Urine Color Urine Appearance (Clear) Urine pH (4.5-7.5) Ur Specific [place] (1.000-1.030) Urine Protein (Negative) Urine Glucose (UA) (Negative) Urine Ketones (Negative) Urine Blood (Negative) Urine Nitrite (Negative) Urine Bilirubin (Negative) Urine Urobilinogen (Negative) Ur Leukocyte Esterase (Negative) Adenovirus (PCR) (NotDetected) B. pertussis DNA (PCR) (NotDetected) B.parapertussis DNA PCR (NotDetected) C. pneumoniae DNA (PCR) (NotDetected) Coronavirus OC43 (PCR) (NotDetected) Coronavirus HKU1 (PCR) (NotDetected) Coronavirus 229E (PCR) (NotDetected) SARS-CoV-2 (PCR) (NotDetected) Coronavirus NL63 (PCR) (NotDetected) Human Metapneumovir PCR (NotDetected) Influenza Type A (PCR) (NotDetected) Influenza Type B (PCR) (NotDetected) M. pneumoniae (PCR) (NotDetected) Parainfluenza 1 (PCR) (NotDetected) Parainfluenza 2 (PCR) (NotDetected) Parainfluenza 3 (PCR) (NotDetected) Parainfluenza 4 (PCR) (NotDetected) RSV (PCR) (NotDetected) Entero/Rhino (PCR) (NotDetected) Medications Administered Current Inpatient Medications Acetaminophen (Acetaminophen 325 Mg Tab) 650 mg PO Q4H PRN PRN Reason: Pain or Fever Stop: 01/06/25 22:21 Albuterol (Albuterol Hfa 8 Gm Inhaler) 2 puffs INH Q6H PRN PRN Reason: Shortness Of Breath Stop: 01/06/25 22:21 Albuterol (Albut/Ipratrop 3mg/0.5mg Neb 3 Ml Vial) 3 ml NEB QIDR RAFY; Protocol Stop: 01/07/25 06:59 Last Admin: 12/08/24 07:34 Dose: 3 ml Albuterol (Albut/Ipratrop 3mg/0.5mg Neb 3 Ml Vial) 3 ml NEB Q4H PRN; Protocol PRN Reason: Shortness Of Breath Or Wheezing Stop: 01/06/25 22:21 Apixaban (Apixaban 2.5 Mg Tab) 2.5 mg PO BID [facility] Stop: 01/06/25 22:21 Last Admin: 12/07/24 23:16 Dose: 2.5 mg Aspirin (A[facility]in 81 Mg Ectab) [facility] [place]: 01/07/25 08:59 Atorvastatin Calcium (Atorvastatin 40 Mg Tab) [facility] [place]: 01/07/25 08:59 Buspirone HCl (Buspirone 5 Mg Tab) 10 mg PO BID [facility] Stop: 01/06/25 22:21 Last Admin: 12/07/24 23:15 Dose: 10 mg Calcium Carbonate (Calcium Carbonate 1250mg Tab) 1 [facility] [place]: 01/07/25 08:59 Cyanocobalamin (Cyanocobalamin (B-12) 500 Mcg Tablet) 1,000 mcg PO QAM [facility] Stop: 01/07/25 08:59 Cyclobenzaprine HCl (Cyclobenzaprine Hcl 10 Mg Tab) 10 mg PO Q8H PRN PRN Reason: muscle spasm Stop: 01/06/25 22:21 Duloxetine HCl (Duloxetine Hcl 60 Mg Cap) 60 mg PO HS [facility] Stop: 01/06/25 22:21 Last Admin: 12/07/24 23:16 Dose: 60 mg Fluticasone/Vilanterol (Fluticasone/Vilanterol 200/25mcg 14 Puffs/Inhaler) 1 puffs [facility] [place]: 01/07/25 08:59 Furosemide (Furosemide 40 Mg Tab) 40 mg PO DAILY [facility] Stop: 01/07/25 08:59 Guaifenesin (Guaifenesin 600 Mg Tabcr) 600 mg PO BID [facility] Stop: 01/07/25 08:59 Hydromorphone HCl (Hydromorphone Inj 0.5 Mg/0.5 Ml Syr) 0.5 mg IV Q6H PRN PRN Reason: Severe Pain (Scale 7, 8, 9,10) Stop: 12/21/24 22:21 Hydroxyzine HCl (Hydroxyzine Hcl 10 Mg Tab) 10 mg PO TID PRN PRN Reason: anxiety Stop: 01/06/25 22:21 Methylprednisolone 40 mg/ (Syringe) 0.64 mls @ 1.5 mls/min IV Q12H [facility] Stop: 01/07/25 08:59 Lactulose (Lactulose Syrup 20 Gm/30 Ml Udc) 20 gm PO BID PRN PRN Reason: NEEDED PER PT Stop: 01/06/25 23:32 Metoprolol Succinate (Metoprolol Succ 50mg Ext Rel Tab) 50 mg PO QAM [facility] Stop: 01/07/25 08:59 Nitroglycerin (Nitroglycerin Sl 0.4 Mg/Tab Tab) 0.4 mg SL Q5M PRN PRN Reason: Chest Pain Stop: 01/06/25 22:21 Pantoprazole Sodium (Pantoprazole 40 Mg Tab) 40 mg PO QAM [facility] Stop: 01/07/25 08:59 Polyethylene Glycol (Polyethylene (Miralax) 17 Gm Pack) 17 gm PO DAILY [facility] Stop: 01/07/25 08:59 Potassium Chloride (Potassium Chloride 10 Meq Tabcr) 10 meq PO QAM [facility] Stop: 01/07/25 08:59 Senna/Docusate Sodium (Docusate Sodium/Senna 50/8.6mg Tab) 2 tab PO BID [facility] Stop: 01/06/25 22:21 Last Admin: 12/07/24 23:18 Dose: 2 tab Sennosides (Senna 8.6 Mg Tab) 8.6 mg PO QAM [facility] Stop: 01/07/25 08:59 Tizanidine HCl (Tizanidine Hcl 4 Mg Tablet) 4 mg PO BID [facility] Stop: 01/06/25 22:21 Last Admin: 12/07/24 23:16 Dose: 4 mg Tramadol HCl (Tramadol Hcl 50 Mg Tablet) 50 mg PO Q8H PRN PRN Reason: Pain Stop: 01/06/25 22:21 Umeclidinium [place] (Umeclidinium [place] 62.5mcg/Blister 7 Puffs/Inhaler) 1 [facility] [place]: 01/07/25 08:59 Vitamin D (Cholecalciferol 25 Mcg (1000 Units) Tab) 50 mcg PO QAM [facility] Stop: 01/07/25 08:59
[2024-12-08] MEDS ORDERED: methylPREDNISolone 125 MG/2 ML VIAL IV SCH (09:00)
[2024-12-08] MEDS: CYANOCOBALAMIN (B-12) 500 MCG TABLET PO SCH (09:02)
[2024-12-08] MEDS: guaiFENesin 600 MG TABCR PO SCH (09:02)
[2024-12-08] MEDS: FUROSEMIDE 40 MG TAB PO SCH (09:02)
[2024-12-08] MEDS: ASPIRIN 81 MG ECTAB PO SCH (09:02)
[2024-12-08] MEDS: CHOLECALCIFEROL 25 MCG (1000 UNITS) TAB PO SCH (09:02)
[2024-12-08] MEDS: PANTOprazole 40 MG TAB PO SCH (09:02)
[2024-12-08] MEDS: METOPROLOL SUCC 50MG EXT REL TAB PO SCH (09:03)
[2024-12-08] MEDS: methylPREDNISolone 40 MG in SYRINGE 0 ML IV SCH (09:03)
[2024-12-08] MEDS: CALCIUM CARBONATE 1250MG TAB PO SCH (09:03)
[2024-12-08] MEDS: ATORVASTATIN 40 MG TAB PO SCH (09:03)
[2024-12-08] MEDS: POLYETHYLENE (MIRALAX) 17 GM PACK PO SCH (09:04)
[2024-12-08] MEDS: traMADol HCL 50 MG TABLET PO PRN (09:04)
[2024-12-08] MEDS: ACETAMINOPHEN 325 MG TAB PO PRN (09:05)
[2024-12-08] MEDS: POTASSIUM CHLORIDE 10 MEQ TABCR PO SCH (09:05)
[2024-12-08] MEDS: UMECLIDINIUM BROMIDE 62.5MCG/BLISTER 7 PUFFS/INHALER INH SCH (09:06)
[2024-12-08] MEDS: FLUTICASONE/VILANTEROL 200/25MCG 14 PUFFS/INHALER INH SCH (09:06)
[2024-12-08] MEDS: SENNA 8.6 MG TAB PO SCH (09:07)
[2024-12-08] MEDS: GADOBUTROL 10ML VIAL IV ONE (12:02)
--- NOTE | 2024-12-08 13:28 | Magnetic Resonance Report ---
EXAM: MR abdomen wo con CLINICAL HISTORY: renal lesions? TECHNIQUE: Multi-planar without contrast imaging was performed through the abdomen images was submitted for interpretation. COMPARISON: CT dated 12/07/2024. FINDINGS: Liver: Is enlarged in size measures 20 cm Homogeneous signal intensity on T1 and T2-weighted images. No focal hepatic lesions. Gallbladder and Biliary System: Gallbladder is normal with no stones or wall thickening. Intrahepatic and extrahepatic bile ducts are not dilated. Pancreas: Normal size and contour. Homogeneous signal intensity on T1 and T2-weighted images. No masses or cystic lesions. Spleen: Normal size and appearance. Homogeneous signal intensity. A rounded 1.2x1.2 cm focal lesion seen along medial aspect of lower pole. Adrenal Glands: Bilateral adrenal gland lesions eliciting low SI on t2WI and loss of signal in out of phase T1WIS measuring about 2.6x2 cm and 2.7x2.9 cm on the right and left side respectively. Kidneys and Ureters: The left kidney shows a rim of subcapsulaar fluid collection of maximum thickness of 6 mm occupying mid and lower pole showing low SI on T2WI and relatively high SI on t1WI assoicated with low signal intesnity foci ( confirmed to be calcifications on previous CT study ) in keeping with small subcapsular hematoma.NO underlying sizable focal lesion could be detected on non contarst, non DWI MR basis. Normal size, shape, and position of both kidneys. Bilateral perinephric stranding and fluid collection is noted. No renal stones, masses, or hydronephrosis. Ureters are unremarkable. Vascular Structures: The abdominal aorta and its major branches are normal in caliber. No aneurysm or significant atherosclerosis. Lymph Nodes: No pathologically enlarged lymph nodes in the abdomen. Peritoneum: No free fluid or free air in the abdomen. Bones: No lytic or sclerotic lesions. Soft Tissues: Normal appearance of the visualized soft tissues. lower chest cuts show minimal right sided fissural effusion. Stable. IMPRESSION: 1. Left perinephric subcapsular chronic hematoma of 6 mm thickness.Stable. 2. Bilateral perinephric fatty stranding and fluid collection could be senile changes versus less likely inflammatory origin. Recommend clinical and lab correlation. 3. Bilateral adrenal lesions likely adenomas.Stable. 4. Splenic lower polar small focal lesion. Recommend post contrast assessment if clinically warranted. Electronically signed by Kirk Jackson 12-08-2024 13:27 PM
--- NOTE | 2024-12-08 13:47 | Magnetic Resonance Report ---
EXAM: MR lumbar spine wo/w con CLINICAL HISTORY: severe back pain TECHNIQUE: MRI of the lumbar spine was performed with intravenous contrast administration (8ml Gadavist). Sequences obtained include pre-contrast and post-contrast T1-weighted, T2-weighted, STIR (Short Tau Inversion Recovery), and axial T2-weighted sequences. COMPARISON: None. FINDINGS: Vertebral Alignment: Slight retrolithesis of L2 over L3 vertebral bodies about 1.5 mm. Mild levo-scoliosis is observed. Vertebral Bodies and Intervertebral Discs: T10 verebral height reduction about 10% height reduction with bone marrow edema, no retropulsion, denoting acute mild compression fracture. Mild reduced heights of L5 and L4 vertebral bodies, could be osteoporotic. No lytic or sclerotic lesions. Mottled vertebral bone marrow signals could be osteoporotic changes/ marrow reconversion changes. Advanced multilevel thoracolumbar disc desiccation is noted, manifested by variable reduced height and loss of bright T2 signal with marginal bone hypertrophy of the opposing vertebral endplates. Intervertebral discs demonstrate Grade 3 and 4 dehydration according to Pfirrmann's grading scale. Mixed signals of degenerative marrow changes are seen along the opposing vertebral endplates, predominantly of mixed fatty and oedema phase, most at L5-S1 opposing endplates and the Lower end plate of T10 vertebra. Also, MODIC II changes are seen at the L1-2 level. Multilevel (most at L4/5, L5/S1) facets arthropathic changes with osteophytic encroachment upon the corresponding neural exit foramina, causing degenerative stenosis, adding to nerve root compromise. L5-S1 MODIC grade I endplate changes denoting edema. [id number] analysis: T12-L1: There is no significant disc pathology. No spinal canal stenosis. No neural foraminal stenosis. No ligamentum flavum hypertrophy and facet joint arthropathy. L1-L2: diffuse disc bulge inclined to the right side/osteophyte complex measuring 2.5 mm, causing mild spinal canal stenosis, moderate right and mild left foraminal stenosis, indenting the right merging nerve roots. Mild ligamentum flavum hypertrophy and facet joint arthropathy. L2-L3: diffuse disc bulge measuring 3.4 mm, with right foraminal protrusion measuring 4.5 mm/osteophyte complex measuring 2.5 mm, causing mild spinal canal stenosis, marked right and moderate left foraminal stenosis, causing radicular compression. The effect is augmented by mild ligamentum flavum hypertrophy and facet joint arthropathy. L3-L4: diffuse disc bulge inclined to the right side measuring 3.5 mm, and at the right foramen measuring 4.1 mm/osteophyte complex measuring 2.5 mm, causing mild to moderate spinal canal stenosis, marked right and moderate to marked left foraminal stenosis, causing radicular compression. The effect is augmented by ligamentum flavum hypertrophy and facet joint arthropathy. L4-L5: diffuse disc bulge measuring 5.2 mm, /osteophyte complex, along with ligamentum flavum hypertrophy and facet joint arthropathy/effusion, causing marked spinal canal stenosis, bilateral marked foraminal and lateral neural recesses stenosis, causing radicular compression. L5-S1: diffuse disc bulge measuring 3.9 mm, /osteophyte complex measuring 5.2 mm, along with ligamentum flavum hypertrophy and facet joint arthropathy/effusion, causing mild spinal canal stenosis, bilateral marked foraminal, with radicular compression. Posterior annular tear. Spinal Cord and Nerve Roots: Normal signal intensity and morphology of the conus medullaris and cauda equina. No evidence of intrinsic cord lesions, syrinx, or abnormal signal changes. Soft Tissues: No abnormal masses, fluid collections, or signs of inflammation. Hypointense rim is seen surrounding the posterior aspect of the left kidney, with bilateral mild perirenal fat stranding. Clinical correlation and further CT/US evaluation are advised if clinically warranted. Mild fatty atrophic changes of the paraspinal muscles. Vascular Structures: Normal appearance and enhancement of the abdominal aorta and other major vessels. No evidence of aneurysm, dissection, or significant atherosclerosis. Post-contrast Enhancement: No abnormal areas of enhancement in the vertebrae, intervertebral discs, spinal cord, or soft tissues. IMPRESSION: 1. T10 verebral height reduction about 10% height reduction with bone marrow edema, no retropulsion, denoting acute mild compression fracture. 2. Slight degenerative retrolithesis of L2 over L3 vertebral bodies. 3. Mild levo-scoliosis. 4. Spondylodegenerative changes, with multilevel disc bulges/osteophyte complex, as above described, are most evident at the L4-5 level, causing marked spinal canal stenosis, bilateral marked foraminal and lateral neural recesses stenosis, causing radicular compression. The effect is augmented by hypertrophic facetal arthropathy/effusion and mildly hypertrophied ligamenta flava. 5. Mixed signals of degenerative marrow changes are seen along the opposing vertebral endplates, predominantly of mixed fatty and oedema phase, most at L5-S1 opposing endplates and the Lower end plate of T10 vertebra. Also, MODIC II changes are seen at the L1-2 level. 6. No abnormal areas of enhancement in the vertebrae, intervertebral discs, spinal cord, or soft tissues. 7. Mild reduced heights of L5 and L4 vertebral bodies, could be osteoporotic. Electronically signed by Kirk Jackson 12-08-2024 13:47 PM
[2024-12-08 14:57] VITALS: O2SAT 93
[2024-12-08 15:52] VITALS: RESP 16; TEMP 97.7
--- NOTE | 2024-12-08 16:47 | Orthopedic Progress Note ---
Date of Service December 08, 2024 Assessment & Plan (1) Lumbar spondylosis: (2) Disc degeneration, lumbar: (3) Thoracic compression fracture: (4) Chronic low back pain: Subjective HPI: Patient was admitted through the emergency department for an episode of severe low back pain. She reports that she has had chronic back pain, she has been seen by [facility] pain management in the past for chronic lumbar pain. She has had intermittent radiculopathy over the years however nothing constant. A day or 2 ago she had an episode of bending over felt sharp pain across the lower back and had difficulty straightening up. She has remained neurologically intact, no change in bowel or bladder function. Does not describe any discrete radicular symptoms down her lower extremities. Pain is mostly axial back pain in the lower lumbar region. She reports excellent relief of symptoms with steroids here in the hospital, has been up and ambulating with a walker. Apparently she had some scans in the past where they discussed a possible length the spine surgery however they advised that she not proceed with any surgery. Review of Systems All systems reviewed & are unremarkable except as noted in HPI & below. Positive for lumbar pain, positive for multiple joint pains Physical Exam Constitutional: Well developed, appears stated age Psych: patient is coherent and answers questions appropriately, normal affect Eye: Normal gaze, no redness to sclera, pupils round and equal Pulm: Normal respiratory effort, no wheezing Cardiovascular: no significant peripheral edema, palpable DP/PT pulses Skin shows no rashes, lesions No midline or paraspinal tenderness with palpation over the lumbar spine, no stepoffs Mild tenderness to palpation midline at approximately the T10 level Motor strength is 5/5 in bilateral hip flexors, quadriceps, tibialis anterior, extensor hallucis longus, and gastroc/soleus complex Sensation intact to light touch in the L2-S1 dermatomes bilaterally 2+ reflexes at the achilles and patella tendons bilaterally No ankle clonus Imaging: CT scan of the abdomen and pelvis was reviewed, my interpretation is limited to only the images of the spine and not the abdominal or pelvic contents. Diffuse age-related degenerative changes visualized from the thoracic to lumbar spine. There is a moderate compression deformity at the T10 level mild compression deformity at L4 which appears old. No evidence of facet fracture or posterior column fractures however difficult to say definitively without a dedicated spine CT. MRI of the lumbar spine was available for review today and interpreted personally. Multiple levels of disc degenerative changes. Moderate to severe facet arthropathy is noted throughout the lumbar spine, worst at the L4-5 and L5-S1 levels. Moderate degree of foraminal stenosis with possible encroachment of the exiting nerve roots however no severe neurologic compression. There is no severe central canal stenosis. Edema in the T10 vertebral body which is seen at the superior aspect of the image without dedicated axial views, consistent with a possible compression deformity. No evidence of posterior ligamentous involvement. Assessment: 74-year-old female with acute on chronic low back pain, diffuse facet arthropathy, lumbar degenerative disc changes, foraminal stenosis, T10 compression fracture. Plan: The patient is neurologically intact and has no radicular symptoms. I explained to her that based on the MRIs and CTs I have available of her spine today I do not see any need for surgical intervention however I do think she would be an excellent candidate for pain management. She has had good relief with steroid here in the hospital, recommend discharge on an oral steroid taper. She does have a T10 compression fracture, I explained that we could try bracing as a comfort aide however she appears to be ambulating well without need for any bracing at this time. I explained that the brace does not make the fracture heal any faster or improve outcomes is simply a device to help with pain control. Do not see any evidence of instability or severe neurologic compression, would be reasonable to discharge her on a course of oral steroid taper and I would be happy to see her in the office. At that time I can help facilitate a referral to pain management if she would like. Results & Data Results & Data Laboratory Results . Diagnostic Findings . PG Care Time/CCT Total # of Minutes Spent Total Time Spent with Patient: Total time spent is greater than 50% in coordination of care (as documented) at patient's floor/unit and/or counseling patient: [place] [address] SUB INP/OBS CARE 2/35MIN Patient Type New History Problem Focused Exam Expanded Problem Focused Medical Decision Making Moderate Complexity Diagnoses Lumbar spondylosis M47.816 Degeneration of intervertebral disc of lumbar region with discogenic back pain M51.360 Disc-related pain type: discogenic back pain only Compression fracture of T10 vertebra, initial encounter S22.070A Encounter type: initial encounter Thoracic vertebra fracture level: T10 Chronic midline low back pain without sciatica M54.50; G89.29 Back pain laterality: midline Sciatica presence: without sciatica (2) Disc degeneration, lumbar Disc-related pain type: discogenic back pain only Qualified Code(s): M51.360 - Other intervertebral disc degeneration, lumbar region with discogenic back pain only (3) Thoracic compression fracture Encounter type: initial encounter Thoracic vertebra fracture level: T10 Qualified Code(s): S22.070A - Wedge compression fracture of T9-T10 vertebra, initial encounter for closed fracture (4) Chronic low back pain Back pain laterality: midline Sciatica presence: without sciatica Qualified Code(s): M54.50 - Low back pain, unspecified; G89.29 - Other chronic pain
[2024-12-08] MEDS ORDERED: methylPREDNISolone 4 MG TAB, 6 DAY TAPER PO SCH (17:30)
--- NOTE | 2024-12-08 17:32 | Discharge Summary ---
Date of Service December 08, 2024 Admission HPI Per Admitting Provider 74-year-old female with past medical history significant for hypercholesterolemia, hypokalemia, COPD, paroxysmal atrial fibrillation, hypertension, LVH, GERD, B12 deficiency, burning mouth syndrome, displacement of internal right hip prosthesis, generalized osteoarthritis, cervical spondylosis, brachial neuritis, osteoporosis, osteoarthritis, migraine, lupus anticoagulant positive, history of PE, moderate episode of depression, anxiety, history of CVA, history of right total hip replacement, mild cognitive impairment, lumbar spinal stenosis who lives alone at home and walks without support and son lives close by was brought in because of severe back pain and abdominal pain. Patient states since last she is having lot of back pain and right-sided abdominal pain radiating to the right flank. Any bending over making the pain worse. She is constipated. No bowel or bladder incontinence. No fevers. No chest pain. No shortness of breath. Having cough and brings up phlegm. Ongoing smoking. Denies headache. Some runny nose. Hemodynamics are okay. Son is in the room and is concerned for severe back pain and abdominal pain and also hematoma on the kidney.Patient is also having this ongoing rash going on since October and there is a plan to follow with dermatology on 11/29/2024. Past medical history. As mentioned above Past surgical history. Right total knee arthroplasty. Colonoscopy and EGD. Partial hysterectomy. Cataracts. Bilateral shoulder arthroscopy. Sinus surgery. Right total hip replacement. Social history. . Smoked 0.5 pack a day for 60 years. No alcohol use. No drug use. Family history. Father had Alzheimer's disease. Emphysema. Mother had colon cancer. Heart disease. Tuberculosis. Sister stroke ruptured aneurysm. History of rheumatoid arthritis. History of pulm embolism. Sister ovarian cancer. Brother had esophageal cancer. Admission Exam Per Admitting Provider General- Not in distress Head- atraumatic Eyes- PERRL. ENT- oropharynx clear Neck- supple, no JVD. Lungs- clear to auscultation no wheezing or crackles Heart- regular rate and rhythm; no murmur, no gallop. Abdomen- normal bowel sounds, soft, diffuse abdominal discomfort, no distension Extremities- lower extremity edema present, moves extremities Neuro- alert, oriented PERRL,no facial palsy; no dysarthria; moves extremities Skin-macular rash seen on extremities and some on face Principal Diagnosis Back pain Discharge Exam General- WD/WN in NAD Head- atraumatic Eyes- PERRL. Neck- supple, no JVD. Lungs- clear to auscultation no wheezing or crackles Heart- regular rate and rhythm; no murmur Abdomen- normal bowel sounds, soft, diffuse abdominal discomfort, no distension Extremities- lower extremity edema present, moves extremities Neuro- alert, oriented PERRL, no facial palsy; no dysarthria; moves extremities Skin- macular rash seen on extremities and some on face Discharge Data Allergies Allergy/AdvReac Type Severity Reaction Status Date / Time Iodinated Contrast Media Allergy Intermediate Hives Verified 11/13/24 20:02 oxycodone AdvReac Severe confusion Verified 11/13/24 20:02 Consultations 12/07/24 18:54 ED Decision to Admit Stat 12/08/24 14:20 Consult Orthopedic Spine Surgery Routine Consult Pain Management Routine Ordered Studies 12/07/24 16:19 CT abd pelvis IV con only Stat FINDINGS: Abdomen: Liver: enlarged in size, shape, and density. No focal lesions, cysts, or masses were identified. Hepatic vasculature and biliary ducts are unremarkable. Gallbladder and Biliary System: The gallbladder is normal in size and shape. No wall thickening, pericholecystic fluid, or gallstones were identified. The common bile duct is normal in caliber without dilation. Pancreas: Pancreatic head, body, and tail are visualized and appear normal in size and density. No pancreatic masses or calcifications were noted. The pancreatic duct is not dilated. Spleen: Normal in size, shape, and density. No splenic lesions or masses were identified. Appendix: not proper visuazlied Kidneys and Adrenal Glands: Both kidneys are normal in size, shape, and position. left maxwell-nephric collection and calcification measuring 7.2x0.8 cm , minimal right perinephric collection seen Cortical thickness is within normal limits. No renal calculi or hydronephrosis. Adrenal glands bilateral renal adenomas Pelvis: Urinary Bladder: Normal in contour and wall thickness. No intraluminal lesions identified. Uterus: not properly visualized No masses or abnormal thickening. Ovaries: Not well visualized, but no gross abnormalities noted. Peritoneal and Retroperitoneal Structures: No free fluid or abnormal fluid collections were identified within the abdomen or pelvis. No lymphadenopathy was noted. Bowel: The visualized bowel loops are normal in caliber and appearance. No evidence of bowel obstruction or wall thickening. Bones and Soft Tissues: Pelvic bones and soft tissues are unremarkable. No fractures or abnormal masses were identified. The right hip replacement is degrading the image quality Right basal lung atelactic band Degenrative lumber changes Aortic atherosclerotic changes IMPRESSION: 1. Left perinephric collection, possible perinephric hematoma, stable 2. Bilateral suprareanl adenoma , stable 12/08/24 09:36 MR abdomen wo con Urgent FINDINGS: Liver: Is enlarged in size measures 20 cm Homogeneous signal intensity on T1 and T2-weighted images. No focal hepatic lesions. Gallbladder and Biliary System: Gallbladder is normal with no stones or wall thickening. Intrahepatic and extrahepatic bile ducts are not dilated. Pancreas: Normal size and contour. Homogeneous signal intensity on T1 and T2-weighted images. No masses or cystic lesions. Spleen: Normal size and appearance. Homogeneous signal intensity. A rounded 1.2x1.2 cm focal lesion seen along medial aspect of lower pole. Adrenal Glands: Bilateral adrenal gland lesions eliciting low SI on t2WI and loss of signal in out of phase T1WIS measuring about 2.6x2 cm and 2.7x2.9 cm on the right and left side respectively. Kidneys and Ureters: The left kidney shows a rim of subcapsulaar fluid collection of maximum thickness of 6 mm occupying mid and lower pole showing low SI on T2WI and relatively high SI on t1WI assoicated with low signal intesnity foci ( confirmed to be calcifications on previous CT study ) in keeping with small subcapsular hematoma.NO underlying sizable focal lesion could be detected on non contarst, non DWI MR basis. Normal size, shape, and position of both kidneys. Bilateral perinephric stranding and fluid collection is noted. No renal stones, masses, or hydronephrosis. Ureters are unremarkable. Vascular Structures: The abdominal aorta and its major branches are normal in caliber. No aneurysm or significant atherosclerosis. Lymph Nodes: No pathologically enlarged lymph nodes in the abdomen. Peritoneum: No free fluid or free air in the abdomen. Bones: No lytic or sclerotic lesions. Soft Tissues: Normal appearance of the visualized soft tissues. lower chest cuts show minimal right sided fissural effusion. Stable. IMPRESSION: 1. Left perinephric subcapsular chronic hematoma of 6 mm thickness.Stable. 2. Bilateral perinephric fatty stranding and fluid collection could be senile changes versus less likely inflammatory origin. Recommend clinical and lab correlation. 3. Bilateral adrenal lesions likely adenomas.Stable. 4. Splenic lower polar small focal lesion. Recommend post contrast assessment if clinically warranted. MR lumbar spine wo/w con Urgent IMPRESSION: 1. T10 verebral height reduction about 10% height reduction with bone marrow edema, no retropulsion, denoting acute mild compression fracture. 2. Slight degenerative retrolithesis of L2 over L3 vertebral bodies. 3. Mild levo-scoliosis. 4. Spondylodegenerative changes, with multilevel disc bulges/osteophyte complex, as above described, are most evident at the L4-5 level, causing marked spinal canal stenosis, bilateral marked foraminal and lateral neural recesses stenosis, causing radicular compression. The effect is augmented by hypertrophic facetal arthropathy/effusion and mildly hypertrophied ligamenta flava. 5. Mixed signals of degenerative marrow changes are seen along the opposing vertebral endplates, predominantly of mixed fatty and oedema phase, most at L5-S1 opposing endplates and the Lower end plate of T10 vertebra. Also, MODIC II changes are seen at the L1-2 level. 6. No abnormal areas of enhancement in the vertebrae, intervertebral discs, spinal cord, or soft tissues. 7. Mild reduced heights of L5 and L4 vertebral bodies, could be osteoporotic. Hospital Course (1) Back pain: (1) Back pain: Plan: 74-year-old female with past medical history significant for hypercholesterolemi a, hypokalemia, COPD, paroxysmal atrial fibrillation, hypertension, LVH, GERD, B12 deficiency, burning mouth syndrome, displacement of internal right hip prosthesis, generalized osteoarthritis, cervical spondylosis, brachial neuritis, osteoporosis, osteoarthritis, migraine, lupus anticoagulant positive, history of PE, moderate episode of depression, anxiety, history of CVA, history of right total hip replacement, mild cognitive impairment, lumbar spinal stenosis who lives alone at home and walks without support and son lives close by was brought in because of severe back pain and abdominal pain. Patient states since last she is having lot of back pain and right-sided abdominal pain radiating to the right flank. Any bending over making the pain worse. She is constipated. No bowel or bladder incontinence. No fevers. No chest pain. No shortness of breath. Having cough and brings up phlegm. Ongoing smoking. Denies headache. Some runny nose. Hemodynamics are okay. Son is in the room and is concerned for severe back pain and abdominal pain and also hematoma on the kidney.Patient is also having this ongoing rash going on since October and there is a plan to follow with dermatology on 11/29/2024. Severe back pain Abdominal pain CT abdomen pelvis left perinephric collection possible perinephric hematoma stable. Bilateral suprarenal adenoma stable. MRI abdomen and lumbar spine obtained as above Pain control Results of MR abdomen - follow up as outpt MR lumbar spine discussed w/ Dr. Aguilar (ortho spine surgery) - plan to DC pt on medrol pack and follow up w/ Dr. Aguilar in his office later this week. She may need referral to pain management clinic. Mild COPD exacerbation Nebs ATC and as needed Continue home inhalers Short course of steroids Lupus anticoagulant positive History of PE On Eliquis Paroxysmal atrial fibrillation On metoprolol succinate and Eliquis Depression and anxiety On duloxetine, buspirone and hydroxyzine as needed Hypertension On metoprolol succinate and Lasix Will monitor GERD On Protonix History of CVA On statin and aspirin and Eliquis Ongoing rash Has appointment with dermatology - tomorrow AM (and pt would like to make to this appointment as she has been waiting for it for weeks) Total Time Total Time Spent Total Time Spent (In Minutes): 40 Discharge Plan Discharge Items Patient Disposition: Home - Self-Care Reason For Visit: BACK PAIN, ABDOMINAL PAIN, COPD Discharge Diagnosis: Back pain Activity: Per Instructions section Non-emergency contact: Primary Care Provider, Surgeon and Specialist Call non-emergency contact if: you have any medication questions and your symptoms worsen Follow-up/Referrals: Perfecto Sauceda, [Primary Care Provider] - Diet: Heart Healthy Addtl Attending Provider Instructions: Follow up with orthopedic surgeon - . Take steroid taper (Medrol pack) as prescribed. Follow up with dermatology (tomorrow), primary care physician and pain management. Pending Studies at Discharge: Yes Studies:: blood cultx results Stand-Alone Forms: [employer], Smoking Cessation Medications and DC Order Prescriptions: New methylprednisolone 4 mg Tablet 4 mg PO UD Qty: 20 0RF Rx Instructions: take 5 tabs for 2 days, then 4 tabs, then 3 tabs, then 2 tabs, then 1 tab Continued pantoprazole 40 mg Tablet,Delayed Release (Dr/Ec) 40 mg PO QAM Qty: 30 0RF furosemide 40 mg tablet 40 mg PO DAILY Qty: 30 0RF atorvastatin 40 mg Tablet 40 mg PO QAM Qty: 60 0RF metoprolol succinate [Toprol XL] 50 mg tablet extended release 24 hr 50 mg PO QAM Qty: 60 0RF cyanocobalamin (vitamin B-12) [Vitamin B-12] 1,000 mcg Tablet 1,000 mcg PO QAM Qty: 30 0RF potassium chloride 10 mEq tablet extended release 10 meq PO QAM Qty: 30 0RF aspirin 81 mg Tablet,Delayed Release (Dr/Ec) 81 mg PO QAM Qty: 30 0RF calcium carbonate [Calcium 600] 600 mg calcium (1,500 mg) Tablet 600 mg PO QAM Qty: 60 0RF buspirone 10 mg tablet 10 mg PO BID Qty: 60 0RF Rx Instructions: AM & HS albuterol sulfate [Ventolin HFA] 90 mcg/actuation Hfa Aerosol Inhaler 2 puff INHALATION Q6H PRN (Reason: Shortness Of Breath) Qty: 6.7 0RF hydroxyzine HCl 10 mg tablet 10 mg PO TID PRN (Reason: anxiety) Qty: 10 0RF duloxetine 60 mg Capsule,Delayed Release(Dr/Ec) 60 mg PO HS Qty: 60 0RF cholecalciferol (vitamin D3) [Vitamin D3] 50 mcg (2,000 unit) Capsule 50 mcg PO QAM Qty: 30 0RF Eliquis 2.5 mg tablet 2.5 mg PO BID Qty: 60 0RF guaifenesin [Mucinex] 600 mg Tablet Extended Release 12hr 600 mg PO BID PRN (Reason: Congestion) Qty: 60 0RF fluticasone furoate-vilanterol [Breo Ellipta] 200-25 mcg/dose blister with device 1 inh INHALATION QAM Qty: 60 0RF albuterol sulfate 0.63 mg/3 mL solution for nebulization 0.63 mg continuous nebulization DIRECTED PRN (Reason: Shortness Of Breath Or Wheezing) ondansetron 4 mg tablet,disintegrating 4 mg PO Q8H PRN (Reason: nausea and vomiting) cyclobenzaprine 10 mg Tablet 10 mg PO Q8H PRN (Reason: muscle spasm) Qty: 30 0RF Rx Instructions: per pt she still takes medication, no fill history available. lactulose 10 gram/15 mL solution 30 ml PO BID PRN (Reason: NEEDED PER PT) Spiriva Respimat 1.25 mcg/actuation mist 2 puff INHALATION QAM polyethylene glycol 3350 [Miralax] 17 gram powder in packet 17 g PO DAILY PRN (Reason: Constipation) tizanidine 4 mg tablet 4 mg PO BID tramadol 50 mg tablet 50 mg PO Q8H PRN (Reason: Pain) sennosides-docusate sodium [Senokot-S] 8.6-50 mg tablet 2 tab PO BID Discharge Orders: Discharge Order (Routine); Ordered 12/08/24 Ordered By: Ronn Triplett Admission Data Admit Date/Time: 12/07/24 20:45 Attending Provider: Ronn Triplett Admit Provider: Robert Bernal Primary Care Provider: Perfecto Sauceda Other Providers: Robert Bernal; Volodymyr Aguilar Upendra
[2024-12-08 17:35] VITALS: BP 117/64; PULSE 85
== END 2024-12-08 18:06 | disposition home or self-care (01) | DRG 552 ==
LOC: ED 15:29 → 2N 20:45